=== PATIENT | female | born 1990 | race Caucasian/White ===

== ENCOUNTER → 2021-11-16 11:17 | Outpatient (BNVA) | payer OTHER, SELFPAY | PROVIDERS: Visit Provider Physician Assistant Medical | DX: Z13.89 Encounter for screening for other disorder (principal) | CPT/HCPCS: 73030; 99203 ==

== ENCOUNTER → 2021-12-10 09:40 | Outpatient (BNVA) | payer OTHER, SELFPAY | PROVIDERS: Visit Provider Physician Assistant Medical | DX: Z13.89 Encounter for screening for other disorder (principal) | CPT/HCPCS: 99213 ==

== ENCOUNTER 2022-02-02 14:54 | Outpatient (REF) | payer MEDICAID, SELFPAY ==
--- NOTE | ~2022-02-02 | XR_ITS ---
EXAMINATION: XR FEMUR, RIGHT CLINICAL INFORMATION: Pain and trauma to right thigh COMPARISON: None TECHNIQUE: AP and lateral views of the right femur were obtained. FINDINGS: The bones and soft tissues are normal. No fracture. No osseous lesions. XR/XR femur RT 2V IMPRESSION: Normal right femur.
== END 2022-02-02 14:55 | disposition home or self-care (01) ==
LOC: HO.XRAY 14:54
PROVIDERS: PCP Physician Assistant Medical; Visit Provider Emergency Medicine
DX: S79.921A Unspecified injury of right thigh, initial encounter (principal); X58.XXXA Exposure to other specified factors, initial encounter; Y93.9 Activity, unspecified; Y92.9 Unspecified place or not applicable; Y99.9 Unspecified external cause status
CPT/HCPCS: 73552

== ENCOUNTER 2024-08-14 07:27 | Outpatient (REF) | payer OTHER, SELFPAY ==
--- NOTE | ~2024-08-14 | XR_ITS ---
EXAMINATION: XR ELBOW, LEFT CLINICAL INFORMATION: S59.902A - Unspecified injury of left elbow, initial encounter COMPARISON: None available. TECHNIQUE: AP, lateral, and oblique views of the left elbow. FINDINGS: The bones and soft tissues are normal. No fracture or joint effusion. Alignment is anatomic. Joint spaces are maintained. XR/XR elbow LT min 3V IMPRESSION: Normal left elbow. Electronically signed by: Ambrosio Timmons MD 08/15/2024 10:36 AM СЕРГЕЙ
[2024-08-14 07:39] LABS: MANUAL DIFF FLAG NO
[2024-08-14 08:25] LABS: Basophils Absolute Auto 0.1 X10*3/uL (0.0-0.2); Basophils Percent Auto 0.9 % (0-2); Eosinophils Absolute Auto 0.2 X10*3/uL (0.0-0.4); Eosinophils Percent Auto 4.1 % (0-4); Hematocrit 41.3 % (37.0-47.0); Hemoglobin 14.2 g/dl (12.0-16.0); Imm Gran Abs Auto 0.01 X10*3/uL (0.00-0.03); Imm Gran Pct Auto 0.2 % (0.0-0.4); Lymphocytes Percent Auto 35.9 % (20-40); Mean Corpuscular HGB Conc 34.4 g/dl (31.0-35.0); Mean Corpuscular Hemoglobin 28.9 pg (27.0-33.0); Mean Corpuscular Volume 83.9 fL (80.0-98.0); Mean Platelet Volume 9.9 fL (9.4-12.3); Monocytes Absolute Auto 0.6 X10*3/uL (0.1-1.2); Monocytes Percent Auto 11.2 % (2-11); Neutrophils Absolute Auto 2.7 x10*3/uL (2.0-8.3); Neutrophils Percent Auto 47.7 % (45-73); Platelet Count 286 X10*3/uL (160-400); Red Blood Count 4.92 X10*6/uL (4.20-5.50); Red Cell Distribution Width 12.8 % (11.0-16.0); White Blood Count 5.6 X10*3/uL (4.8-10.8)
[2024-08-14 08:34] LABS: Estimated Average Glucose 100 mg/dL; Hemoglobin A1C 118.5757 umol/L; Hemoglobin A1c % 5.1 % (<6.0); Total Hemoglobin (HGBA1C) 3730.5122 umol/L
[2024-08-14 09:02] LABS: Alanine Aminotransferase 16 U/L (0-31); Albumin Level 4.2 g/dL (3.5-5.0); Alkaline Phosphatase 52 U/L (39-117); Anion Gap 10 (12-20); Aspartate Amino Transferase 24 U/L (5-31); Bilirubin Direct 0.2 mg/dL (0.0-0.5); Bilirubin Total 0.8 mg/dL (0.0-1.0); Blood Urea Nitrogen 10 mg/dL (9-16); C Reactive Protein 0.22 mg/dL (< or = 0.50); Calcium 8.8 mg/dL (8.4-10.2); Carbon Dioxide 23 mmol/L (22-29); Chloride 110 mmol/L (96-108); Cholesterol 175 mg/dL (<200); Estimated Glomerular Filt Rate > 60; Glucose Fasting 91 mg/dL (60-99); HDL Cholesterol 51 mg/dL (>40); LDL Cholesterol Calculated 108 mg/dL (<100); Magnesium 2.1 mg/dL (1.6-2.6); Potassium 3.8 mmol/L (3.3-5.1); Sodium 139 mmol/L (135-145); Total Protein 7.2 g/dL (6.5-8.0); Triglycerides 81 mg/dL (<150)
[2024-08-14 09:20] LABS: TSH reflex Free T4 3.46 uIU/mL (0.32-4.0); Vitamin D 25-OH Total 23.2 ng/mL (>30)
[2024-08-14 10:09] LABS: Folate 7.5 ng/mL (> or = 4.0); Vitamin B12 274 pg/mL (200-900)
[2024-08-14 14:56] LABS: Phosphorus 4.3 mg/dL (2.7-4.5)
[2024-08-14 15:03] LABS: Parathyroid Hormone Intact 74.6 pg/mL (8.7-77.1)
[2024-08-15 11:33] LABS: Prolactin 17.9 ng/mL
[2024-08-18 21:34] LABS: Estrogen 286 pg/mL
[2024-08-19 00:57] LABS: Progesterone 7.2 ng/mL
[2024-08-20 15:18] LABS: Vitamin B1 11 nmol/L (8-30)
[2024-08-22 06:27] LABS: Testosterone, Total 36 ng/dL (2-45)
== END 2024-08-14 07:28 | disposition home or self-care (01) ==
LOC: HO.XRAY 07:27
PROVIDERS: PCP Physician Assistant Medical; Visit Provider Physician Assistant Medical
DX: Z00.00 Encounter for general adult medical examination without abnormal findings (principal); D47.2 Monoclonal gammopathy; G62.9 Polyneuropathy, unspecified; D80.4 Selective deficiency of immunoglobulin M [IgM]; E06.3 Autoimmune thyroiditis; E78.5 Hyperlipidemia, unspecified; E55.9 Vitamin D deficiency, unspecified; G90.A Postural orthostatic tachycardia syndrome [POTS]; F43.10 Post-traumatic stress disorder, unspecified; E66.3 Overweight; Z68.26 Body mass index [BMI] 26.0-26.9, adult; S59.902A Unspecified injury of left elbow, initial encounter; W22.8XXA Striking against or struck by other objects, initial encounter; Y93.31 Activity, mountain climbing, rock climbing and wall climbing; Y92.9 Unspecified place or not applicable; Y99.8 Other external cause status
CPT/HCPCS: 36415; 73080; 80053; 80061; 80076; 82248; 82306; 82550; 82607; 82672; 82746; 83036; 83735; 83970; 84100; 84144; 84146; 84403; 84425; 84443; 85025; 86140

== ENCOUNTER 2024-08-14 12:57 | Outpatient (AMB) | payer OTHER, SELFPAY ==
--- NOTE | 2024-08-14 13:02 | MHC.PC.OV ---
Vital Signs 08/14/24 13:15 Height 5 ft 5 in Weight 157 lb BMI 26.1 BP 116/50 L Blood Pressure Location Rt brachial Pulse 73 Pulse Source Pulse Oximeter Temp 98.6 F Pulse Oximetry (%) 97 Intake Visit Reasons: new patient Intake Note: hurt left elbow two weeks ago Allergies scallops Allergy (Unknown, Unverified 08/14/24 13:43) Unknown Gabapentin Allergy (Unknown, Uncoded 08/14/24 13:43) neurologic side effects Medication List - Last Reconciled 08/14/24 by Elicia Valentin PA-C cholecalciferol (vitamin D3) 1,250 mcg PO QWEEK 3 months dextroamphetamine-amphetamine 15 mg (Adderall) 15 mg PO BID 90 days hydroxychloroquine 200 mg PO BID 90 days propranolol 10 mg PO BID 90 days trazodone 100 mg PO DAILY FORMERLY [facility], [facility] Medical History (Updated 08/14/24 @ 13:44 by Elicia Valentin PA-C) Overweight with body mass index (BMI) of 26 to 26.9 in adult Injury of left elbow Annual physical exam Hyperlipidemia with target low density lipoprotein (LDL) cholesterol less than 100 mg/dL Vitamin D deficiency Small fiber neuropathy Fracture of distal end of left fibula Multiple joint pain Postural orthostatic tachycardia syndrome PTSD (post-traumatic stress disorder) Selective immunoglobulin M deficiency Monoclonal gammopathy Channing's thyroiditis Surgical History S/P hardware removal S/P right rotator cuff repair S/P posterior Bankart repair of right shoulder Family History Paternal Grandfather Malignant carcinoid tumor of lung Mother Thyroid nodule Malignant tumor of thyroid gland Physical exam (Primary Care) Vital Signs: Last Vital Signs Temp 98.6 F 08/14/24 13:15 Pulse 73 08/14/24 13:15 BP 116/50 L 08/14/24 13:15 Pulse Ox 97 08/14/24 13:15 BMI result Body Mass Index 26.1 BMI Assessment/Plan discussion: High BMI High, discussed plan: lifestyle, weight reduction, dietary, physical activity and alcohol moderation Coding Level of Care Code New Pt Prev Care 18-39yr([id number] Diagnoses Annual physical exam Z00.00 Monoclonal gammopathy D47.2 Small fiber neuropathy G62.9 Selective immunoglobulin M deficiency D80.4 Channing's thyroiditis E06.3 Vitamin D deficiency E55.9 Hyperlipidemia with target low density lipoprotein (LDL) cholesterol less than 100 mg/dL E78.5 Postural orthostatic tachycardia syndrome G90.A PTSD (post-traumatic stress disorder) F43.10 Overweight with body mass index (BMI) of 26 to 26.9 in adult E66.3; Z68.26 Injury of left elbow S59.902A Assessment & Plan Assessment & Plan (1) Annual physical exam: Code(s): Z00.00 - Encounter for general adult medical examination without abnormal findings Category: Medical (2) Monoclonal gammopathy: Code(s): D47.2 - Monoclonal gammopathy Category: Medical Plan: [facility]. Has not been seen in approximately 1 year. Currently on hydrochloroquine 200 mg p.o. b.i.d.. Will refer to our commercial plumber, rheumatology, oncologist/lobby attendant per patient request for continuity of care. Condition is chronic and stable continue to monitor. (3) Small fiber neuropathy: Code(s): G62.9 - Polyneuropathy, unspecified Category: Medical Plan: [facility]. Has not been seen in approximately 1 year. Currently on hydrochloroquine 200 mg p.o. b.i.d.. Will refer to our commercial plumber, rheumatology, oncologist/lobby attendant per patient request for continuity of care. Condition is chronic and stable continue to monitor. (4) Selective immunoglobulin M deficiency: Code(s): D80.4 - Selective deficiency of immunoglobulin M [IgM] Category: Medical Plan: [facility]. Has not been seen in approximately 1 year. Currently on hydrochloroquine 200 mg p.o. b.i.d.. Will refer to our commercial plumber, rheumatology, oncologist/lobby attendant per patient request for continuity of care. Condition is chronic and stable continue to monitor. (5) Channing's thyroiditis: Code(s): E06.3 - Autoimmune thyroiditis Category: Medical Plan: Patient recently had TSH level drawn today which was within normal limits. Condition is chronic and stable continue to monitor (6) Vitamin D deficiency: Code(s): E55.9 - Vitamin D deficiency, unspecified Category: Medical Plan: Patient noted to have vitamin-D deficiency with a level of 23.2 drawn today. Patient will be started on a weekly supplement. Condition is chronic and stable continue to monitor. (7) Hyperlipidemia with target low density lipoprotein (LDL) cholesterol less than 100 mg/dL: Code(s): E78.5 - Hyperlipidemia, unspecified Category: Medical Plan: Patient's LDL was 108. Although patient is less than 40 years old and there are no other cardiac risk factors. Patient will trial diet and exercise before being started on a statin. Condition is chronic and stable continue to monitor. (8) Postural orthostatic tachycardia syndrome: Code(s): G90.A - Postural orthostatic tachycardia syndrome [POTS] Category: Medical Plan: Patient currently on propranolol 10 mg b.i.d.. Condition is chronic and stable continue to monitor. (9) PTSD (post-traumatic stress disorder): Code(s): F43.10 - Post-traumatic stress disorder, unspecified Category: Medical Plan: Patient currently on Adderall 15 mg p.o. b.i.d.. Condition is chronic and stable continue to monitor. (10) Overweight with body mass index (BMI) of 26 to 26.9 in adult: Code(s): E66.3 - Overweight; Z68.26 - Body mass index [BMI] 26.0-26.9, adult Category: Medical Plan: Patient will improve her diet and exercise regimen. Condition is chronic and stable continue to monitor. (11) Injury of left elbow: Code(s): S59.902A - Unspecified injury of left elbow, initial encounter Category: Medical Plan: Patient with left elbow pain. On exam has full range of motion no obvious deformities. No obvious ligamentous or tendon injury. Good strength noted. Will order outpatient x-ray. Will continue to monitor. Plan Plan I will evaluate the patient's elbow pain starting with an x-ray, advancing to MRI if indicated after initial imaging review. Will be ordering thyroid ultrasound to evaluate for thyroid nodules. Autoimmune monitoring remains stable, though further endocrine assessment including a thyroid ultrasound and expanded blood panel checks is warranted due to familial thyroid disease history and recent unexplained weight gain. Vitamin D supplementation initiated to address laboratory-confirmed deficiency, and lipid profile monitoring remains essential due to moderately elevated LDL. Medication refills coordinated as needed, considering holistic management integrating family and personal health history, alongside re-examining for potential thyroid activity via specific antibody evaluation and ultrasound diagnosis. Patient will also be referred to endocrinology for thyroid assessment, rheumatology in hematology/oncology for her chronic medical conditions. Orders: Orders Comprehensive [place]. Panel Fast Today Z00.00 - Encounter for general adult medical examination without abnormal findings Magnesium Today Z00.00 - Encounter for general adult medical examination without abnormal findings Liver Panel Today Z00.00 - Encounter for general adult medical examination without abnormal findings Phosphorus Today Z00.00 - Encounter for general adult medical examination without abnormal findings Testosterone, Total Today Z.00 - Encounter for general adult medical examination without abnormal findings Estrogen Today Z00.00 - Encounter for general adult medical examination without abnormal findings US thyroid Today E04.1 - Nontoxic single thyroid nodule, E06.3 - Autoimmune thyroiditis C Reactive Protein Today Z.00 - Encounter for general adult medical examination without abnormal findings Complete Blood Count Auto Diff Today Z00.00 - Encounter for general adult medical examination without abnormal findings Lipid Panel Today Z00.00 - Encounter for general adult medical examination without abnormal findings Hemoglobin A1c Today Z00.00 - Encounter for general adult medical examination without abnormal findings TSH reflex Free T4 Today Z00.00 - Encounter for general adult medical examination without abnormal findings Vitamin B1 Today Z00.00 - Encounter for general adult medical examination without abnormal findings Vitamin B12 and Folate Today Z00.00 - Encounter for general adult medical examination without abnormal findings Vitamin D 25-OH Total Today Z00.00 - Encounter for general adult medical examination without abnormal findings Prolactin Today Z00.00 - Encounter for general adult medical examination without abnormal findings Progesterone Today Z00.00 - Encounter for general adult medical examination without abnormal findings Creatine Kinase Total Today Z00.00 - Encounter for general adult medical examination without abnormal findings XR elbow LT min 3V Today S59.902A - Unspecified injury of left elbow, initial encounter Referrals Hematology & Oncology Referral D47.2 - Monoclonal gammopathy, D80.4 - Selective deficiency of immunoglobulin M [IgM], G62.9 - Polyneuropathy, unspecified Rheumatology Referral D47.2 - Monoclonal gammopathy, D80.4 - Selective deficiency of immunoglobulin M [IgM], E06.3 - Autoimmune thyroiditis, G62.9 - Polyneuropathy, unspecified Endocrinology Referral D47.2 - Monoclonal gammopathy, D80.4 - Selective deficiency of immunoglobulin M [IgM], E06.3 - Autoimmune thyroiditis, E55.9 - Vitamin D deficiency, unspecified, G62.9 - Polyneuropathy, unspecified Medications: New dextroamphetamine-amphetamine 15 mg ER 15 mg PO BID 180 caps 0RF hydroxychloroquine 200 mg PO BID 90 days 180 tabs 1RF propranolol 10 mg PO BID 90 days 180 tabs 1RF cholecalciferol (vitamin D3) 1,250 mcg PO QWEEK 3 months 13 caps 0RF vit d deficiency Patient Instructions: Patient Instructions - Attend x-ray imaging as scheduled, proceeding with further diagnostic as needed. - thyroid ultrasound ordered to evaluate for thyroid nodules - Commence weekly Vitamin D supplementation as per prescription. - Regular medication intake as directed; report any adverse responses or complications. - Schedule a follow-up visit in six months or sooner based on imaging and lab results. - Monitor any new or worsening symptoms, reaching out as necessary. - Review exercise and nutrition focusing on maintaining LDL within target ranges. - Prepare for endocrinology referral for further thyroid evaluation. - prepare for rheumatology referral - prepare for hematology/oncology referral Scribe Plan - Not visible on output: History of Present Illness The patient is a 34-year-old female presenting for her annual physical exam. In addition she would like to discuss left elbow pain. The pain began after a traumatic impact on a previously injured elbow, with a suspect previous fracture history confirmed through past MRI examinations. Associated with her primary orthopedic complaint, the patient has a background of autoimmune presentations including thyroid antibody positivity with otherwise normal function test results, monitored in the past due to recognized familial thyroid pathologies. Evaluation of weight management challenges ties into tracking efforts for thyroid involvement, given familial predispositions. Patient has a diagnosis of monoclonal gammopathy, small fiber neuropathy and selective immunoglobulin M deficiency where she is being followed by [facility]. She routinely has blood work yearly. Her labs over the past few years have been stable within normal limits. She is inquiring if she can follow-up with a lobby attendant/oncologist, commercial plumber and mobile lounge driver at [facility] for continuity of care and due to she works at [facility] therefore it makes it easier to make her appointments instead of going to [facility]. Patient also complaining of left elbow pain. Reports a few weeks ago she impacted her elbow and since then she is having intermittent pain. She reports a history of a prior fracture many years ago. She reports a prior fracture to her left elbow had to be confirmed with MRI after she had a negative left elbow x-ray. Although this was from falling after rock climbing. 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 - Exercise: Engaged in physically demanding activities like rock climbing, although current extent of physical activity is not specified. - Family History: Positive for thyroid issues, including thyroid cancer in the mother and medication use for thyroid conditions among paternal relatives. - Weight Management: Observations of weight gain despite consistent physical activity levels, requiring ongoing evaluation. Review of Systems - Musculoskeletal: Reports Left elbow pain with radiating nerve pain during movement. - Endocrine: Reports unexplained weight gain; Denies cold intolerance. - Neurological: Denies headaches or visual disturbances. - Hematological: Denies easy bruisability. Physical Exam Appearance: Alert. Oriented X3. No acute distress. Head: Normal external exam. Normocephalic. Atraumatic. Eyes: Pupils are equal, round, and reactive to light. Extraocular movements intact. Conjunctiva and sclera normal. Eyelids normal. Ears: External auditory canal normal. Tympanic membranes normal. Throat: Pharynx normal. Uvula midline. Moist mucous membranes. Neck: Normal inspection. Neck supple. Full range of motion. No adenopathy. Thyroid Normal. No meningeal signs. No neck mass noted. Cardiovascular: Normal heart rate and rhythm. Heart sound normal. No murmurs noted. Pulses normal throughout. Respiratory: No respiratory distress. Painless inspiration. Breath sounds normal. No wheezes/rales/rhonchi noted. Chest nontender. No accessory muscle usage noted or decreased air movement noted. Abdomen: Soft and nontender. Bowel sounds normal in all 4 quadrants. No distention noted. No organomegaly noted. No visible injury noted. Back: No costovertebral angle tenderness. Full range of motion noted. Skin: Skin warm and dry. Normal skin color. Normal skin turgor. No rashes/lesions/lacerations noted. Extremities: No lower extremity edema. Extremities exhibit normal range of motion. Extremities nontender. Noted elbow pain with radiating nerve pain down the arm, history of nondisplaced capitellum fracture in 2018. Neuro: Oriented X 3. No motor deficit. No sensory deficit. Reflexes normal. Results - Labs: Elevated thyroid antibodies, TSH within normal limits. - Lipid Profile: Elevated LDL at 108 mg/dL. - Pending: Vitamin D, Vitamin B1 results. - will add labs and patient will need to be redrawn she understands this. Plan I will evaluate the patient's elbow pain starting with an x-ray, advancing to CT scan or MRI if indicated after initial imaging review. Will be ordering thyroid ultrasound to evaluate for thyroid nodules. Autoimmune monitoring remains stable, though further endocrine assessment including a thyroid ultrasound and expanded blood panel checks is warranted due to familial thyroid disease history and recent unexplained weight gain. Vitamin D supplementation initiated to address laboratory-confirmed deficiency, and lipid profile monitoring remains essential due to moderately elevated LDL. Medication refills coordinated as needed, considering holistic management integrating family and personal health history, alongside re-examining for potential thyroid activity via specific antibody evaluation and ultrasound diagnosis. Patient will also be referred to endocrinology for thyroid assessment, rheumatology and hematology/oncology for her chronic medical conditions. Patient was informed and verbally consented to the use of an ambient scribe for clinic note documentation during this visit. Discussion Notes We discussed the potential of elbow trauma recurrence and outlined the imaging pathway with x-ray followed by MRI to rule out stress re-injury. I reviewed the implications of stable but elevated thyroid antibodies within the context of the patient's weight gain and family history of thyroid pathology. The thyroid ultrasound represents a logical step to uncover potential nodule growth. I explained benefits and expectations around vitamin D supplementation and the impact of controlled LDL through lifestyle choices rather than immediate statins at her current age and health status. Additionally, I advised subsequent consultation with endocrinology for thorough thyroid assessment. We outlined follow-up procedures to elucidate the patient's medication needs timely, with understanding toward future adjustments in response to hormone assays. Patient Instructions - Attend x-ray imaging as scheduled, proceeding with further diagnostic as needed. - thyroid ultrasound ordered to evaluate for thyroid nodules - Commence weekly Vitamin D supplementation as per prescription. - Regular medication intake as directed; report any adverse responses or complications. - Schedule a follow-up visit in six months or sooner based on imaging and lab results. - Monitor any new or worsening symptoms, reaching out as necessary. - Review exercise and nutrition focusing on maintaining LDL within target ranges. - Prepare for endocrinology referral for further thyroid evaluation. - prepare for rheumatology referral - prepare for hematology/oncology referral
[2024-08-14 13:15] VITALS: BP 116/50; PULSE 73; TEMP 37; O2SAT 97; BMI 26.1
== END 2024-08-14 13:35 | disposition home or self-care (01) ==
LOC: HO.HMCSH 12:57
PROVIDERS: PCP Internal Medicine; Visit Provider Physician Assistant Medical
DX: Z00.00 Encounter for general adult medical examination without abnormal findings (principal); D47.2 Monoclonal gammopathy; G62.9 Polyneuropathy, unspecified; D80.4 Selective deficiency of immunoglobulin M [IgM]; E06.3 Autoimmune thyroiditis; E55.9 Vitamin D deficiency, unspecified; E78.5 Hyperlipidemia, unspecified; G90.A Postural orthostatic tachycardia syndrome [POTS]; F43.10 Post-traumatic stress disorder, unspecified; E66.3 Overweight; Z68.26 Body mass index [BMI] 26.0-26.9, adult; S59.902A Unspecified injury of left elbow, initial encounter

== ENCOUNTER → 2024-08-14 14:15 | Outpatient (BNV) | payer OTHER, SELFPAY | PROVIDERS: PCP Physician Assistant Medical; Visit Provider Radiology Diagnostic Radiology | DX: M25.522 Pain in left elbow (principal) | CPT/HCPCS: 73080 ==

== ENCOUNTER → 2024-08-17 19:45 | Outpatient (BNV) | payer OTHER, SELFPAY | PROVIDERS: PCP Internal Medicine; Visit Provider Radiology Diagnostic Radiology | DX: S46.312A Strain of muscle, fascia and tendon of triceps, left arm, initial encounter (principal) | CPT/HCPCS: 73221 ==

== ENCOUNTER 2024-08-17 19:50 | Outpatient (REF) | payer OTHER, SELFPAY | END 2024-08-17 19:51 | disposition home or self-care (01) | LOC: HO.MRI 19:50 | PROVIDERS: PCP Internal Medicine; Visit Provider Physician Assistant Medical | DX: S59.902A Unspecified injury of left elbow, initial encounter (principal) | CPT/HCPCS: 73221 ==

== ENCOUNTER 2024-08-27 10:40 | Outpatient (AMB) | payer OTHER, SELFPAY ==
--- NOTE | 2024-08-27 10:47 | MHC.OFFVIS ---
Vital Signs 08/27/24 10:52 Height 5 ft 5 in Weight 157 lb BMI 26.1 Intake Visit Reasons: Lowgrade tearing of the distal triceps tendon, LT Intake Note: Ivan is a 34 year old right hand dominant female who presents today as a new patient for evaluation of possible tearing of the distal triceps tendon. Patient reports about 4 weeks ago she walked into a wall causing her to directly hit her elbow on the wall. She continues to a have ongoing radiating nerve pain. MRI was performed. Left Elbow MRI done on 08/21/2024 IMPRESSION: 1. Low-grade tearing of the distal triceps tendon. Allergies scallops Allergy (Unknown, Unverified 08/27/24 10:50) Unknown Gabapentin Allergy (Unknown, Uncoded 08/27/24 10:50) neurologic side effects HPI HPI Lowgrade tearing of the distal triceps tendon, LT: Details: 34 yo female presents to the office today for pain along the left elbow. Approx 4 weeks ago she hit her arm against a wall and shes had pain since. She has taken Ibu and tylenol with minimal relief. She was given prednisone with some relief, but once she completed the dose the pain returned. [facility] Medical History (Updated 08/27/24 @ 10:48 by Elicia Valentin PA-C) Triceps tendon rupture Overweight with body mass index (BMI) of 26 to 26.9 in adult Injury of left elbow Annual physical exam Hyperlipidemia with target low density lipoprotein (LDL) cholesterol less than 100 mg/dL Vitamin D deficiency Small fiber neuropathy Fracture of distal end of left fibula Multiple joint pain Postural orthostatic tachycardia syndrome PTSD (post-traumatic stress disorder) Selective immunoglobulin M deficiency Monoclonal gammopathy Channing's thyroiditis Surgical History S/P hardware removal S/P right rotator cuff repair S/P posterior Bankart repair of right shoulder Family History Paternal Grandfather Malignant carcinoid tumor of lung Mother Thyroid nodule Malignant tumor of thyroid gland Social History (Updated 08/27/24 @ 10:55 by AARON Castañeda) Patient Tobacco Use Status: Never used Tobacco Current occupational status: employed Current occupation: [employer] [place], right hand dominant Review of Systems Const All systems reviewed & are unremarkable except as noted in HPI and below Physical Exam Vital Signs: BMI result Body Mass Index 26.1 Const General: cooperative and no acute distress Orientation/consciousness: patient oriented x3 Resp Effort & Inspection: normal respiratory effort and able to speak in complete sentences Cardio Peripheral pulses: Peripheral pulses 2+ throughout Neuro General: patient oriented x3 Extrem Other: Left elbow normal to inspection, no superficial tenderness to palpation. She is able to activate the triceps without significant discomfort. Mild weakness on exam. Neurovascularly intact. Results Reviewed Results Reviewed: MRi Left elbow 08/17/24 IMPRESSION: 1. Low-grade tearing of the distal triceps tendon. Assessment & Plan Assessment & Plan (1) Triceps tendon rupture: Code(s): S46.319A - Strain of muscle, fascia and tendon of triceps, unspecified arm, initial encounter Category: Medical Plan: At this time the triceps appears to be intact and functioning. I do recommend a course of occupational therapy to work on strength exercises. I encouraged her to avoid activities that cause pain to avoid further injuring. She will increase activities as tolerated and see me back as needed. Orders: Orders OT Evaluation and Treatment Today S46.319A - Strain of muscle, fascia and tendon of triceps, unspecified arm, initial encounter Coding Level of Care Code New Pt Level 3 (88772) Complex EM visit Add On G2211 Diagnoses Triceps tendon rupture S46.319A
[2024-08-27 10:52] VITALS: BMI 26.1
== END 2024-08-27 11:06 | disposition home or self-care (01) ==
LOC: HO.HOS 10:40
PROVIDERS: PCP Internal Medicine; Visit Provider Physician Assistant
DX: S46.312A Strain of muscle, fascia and tendon of triceps, left arm, initial encounter (principal)
CPT/HCPCS: 99203

== ENCOUNTER → 2024-08-28 14:05 | Outpatient (BNV) | payer OTHER, SELFPAY | PROVIDERS: PCP Physician Assistant Medical; Referring Provider Physician Assistant Medical; Visit Provider Internal Medicine | DX: D47.2 Monoclonal gammopathy (principal) | CPT/HCPCS: 99203 ==

== ENCOUNTER 2024-10-09 15:49 | Outpatient (REF) | payer OTHER, SELFPAY ==
--- NOTE | ~2024-10-09 | US_ITS ---
EXAMINATION: US THYROID HISTORY: E04.1 - Nontoxic single thyroid nodule TECHNIQUE: Real-time grayscale ultrasound imaging was performed and images were reviewed. COMPARISON: There are no prior studies for comparison. FINDINGS: SIZE: The right thyroid lobe measures 3.9 x 1.3 x 1.7 cm. The left thyroid lobe measures 3.6 x 1.4 x 1.5 cm. The isthmus measures 2 mm. FLOW: Flow to the gland is normal. ECHOGENICITY: The echotexture of the gland is mildly heterogeneous. NODULES: No discrete nodules are identified. US/US thyroid IMPRESSION: Unremarkable thyroid ultrasound. No nodules are identified. ACR TI-RADS Guidelines TR1 (0 points): Benign, No follow-up or biopsy required TR2 (2 points): Not Suspicious, No biopsy or follow up indicated TR3 (3 points): Mildly Suspicious, FNA if >= 2.5 cm, Follow if >= 1.5 cm TR4 (4-6 points): Moderately Suspicious, FNA if >= 1.5 cm, Follow if >= 1.0 cm TR5 (>=7 points): Highly Suspicious, FNA if >= 1.0 cm, Follow if >= 0.5 cm Electronically signed by: Arvind Hearn MD 10/10/2024 04:43 PM EDT
== END 2024-10-09 15:50 | disposition home or self-care (01) ==
LOC: HO.US 15:49
PROVIDERS: PCP Physician Assistant Medical; Visit Provider Physician Assistant Medical
DX: E04.1 Nontoxic single thyroid nodule (principal); E06.3 Autoimmune thyroiditis
CPT/HCPCS: 76536

== ENCOUNTER → 2024-10-09 15:52 | Outpatient (BNV) | payer OTHER, SELFPAY | PROVIDERS: PCP Physician Assistant Medical; Visit Provider Radiology Diagnostic Radiology | DX: E04.1 Nontoxic single thyroid nodule (principal) | CPT/HCPCS: 76536 ==

== ENCOUNTER 2024-10-10 15:31 | Outpatient (AMB) | payer OTHER, SELFPAY ==
[2024-10-10 15:32] VITALS: BP 108/70; PULSE 67; O2SAT 96; BMI 25.2
--- NOTE | 2024-10-10 15:32 | MHC.OFFVIS ---
Vital Signs 10/10/24 15:32 Height 5 ft 5 in Weight 151 lb 7 oz BMI 25.2 BP 108/70 Blood Pressure Location Lt brachial Position Sitting Pulse 67 Pulse Source Pulse Oximeter Pulse Oximetry (%) 96 Oxygen Delivery Method Room Air Intake Visit Reasons: Autoimmune thyroiditis Intake Note: New patient present today for Autoimmune thyroiditis office visit. 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 Operator Required: No Accompanied by: Self / Same As Patient Allergies scallops Allergy (Unknown, Unverified 10/10/24 15:35) Unknown Gabapentin Allergy (Unknown, Uncoded 10/10/24 15:35) neurologic side effects Medication List - Last Reconciled 10/10/24 by Bess Reynolds MD cholecalciferol (vitamin D3) 1,250 mcg PO QWEEK 3 months dextroamphetamine-amphetamine 15 mg ER 15 mg PO BID hydroxychloroquine 200 mg PO BID 90 days propranolol 10 mg PO BID 90 days trazodone 100 mg PO DAILY HPI Comments Details: 34-year-old female here today for initial evaluation of autoimmune thyroid disease 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tested positive for TPO antibodies Lab results reviewed from August 2024 which showed normal TSH of 3.85 She also had a thyroid ultrasound 10/09/2024, report not finalized yet but I reviewed the images myself which shows normal homogeneous appearance of the thyroid gland with no discrete nodules. Complains of weigt gain. No constipations. Reports some intermittent cold intolerance, some hair loss. No mood changes, some increased fatigue. Patient denies any difficulty swallowing, pain on swallowing or voice changes or difficulty breathing. Patient denies any history of childhood neck radiation. Denies having ever used lithium, amiodarone or biotin supplements. Patient denies any family history of thyroid cancer or thyroid disease. Maternal aunt : has thyroid nodules Mother: thyroid cancer, s/p thyroidectomy doing well, not sure of type Paternal aunts: hypothyroid Physical exam General: sitting comfortably in no acute distress HEENT: normocephalic/atraumatic, Neck: supple, symmetrical, no thyromegaly , no dorsocervical or supraclavicular fat pads Cardiac: normal heart sounds Pulm: normal breath sounds B/L, no added breath sounds Abd: not distended Extremities: no edema Neuro: AAO x3, Speech: normal, no facial droop, moving all 4 extremities Laboratory Tests 08/14/24 07:37 TSH 3.46 [facility] Medical History (Updated 08/28/24 @ 16:17 by Guillermina Perry MD) Triceps tendon rupture Overweight with body mass index (BMI) of 26 to 26.9 in adult Injury of left elbow Annual physical exam Hyperlipidemia with target low density lipoprotein (LDL) cholesterol less than 100 mg/dL Vitamin D deficiency Small fiber neuropathy Fracture of distal end of left fibula Multiple joint pain Postural orthostatic tachycardia syndrome PTSD (post-traumatic stress disorder) Selective immunoglobulin M deficiency Monoclonal gammopathy Channing's thyroiditis Surgical History S/P hardware removal S/P right rotator cuff repair S/P posterior Bankart repair of right shoulder Family History Paternal Grandfather Malignant carcinoid tumor of lung Mother Thyroid nodule Malignant tumor of thyroid gland Social History Household Members: None Patient Tobacco Use Status: Former Tobacco user Tobacco use type: Cigarette service: No Current occupational status: employed Current occupation: [employer] [place] right hand dominant Assessment & Plan Assessment & Plan (1) Channing's thyroiditis: Code(s): E06.3 - Autoimmune thyroiditis Category: Medical Plan: 34-year-old female who was found to have positive TPO antibodies in 2020. Normal thyroid function from August 2024. She also had an ultrasound on 10/09/2024: I reviewed the images myself which shows normal appearance of the thyroid with no discrete nodules. She does have strong family history of autoimmune thyroid disease as well as has family history of thyroid cancer. However there is no screening recommended. It is also reassuring to look at her thyroid gland. I discussed with the patient that TPO antibodies can be positive in up to 10-20% of the general population and there is no way to tell done in if she would develop thyroid dysfunction. Her primary care provider can continue to monitor her thyroid function annually or sooner if she has any symptoms. We reviewed signs and symptoms of hypo and hyperthyroidism. She does not need to follow up with us, primary care provider can check thyroid function annually with TSH and free T4. Plan See above Coding Level of Care Code New Pt Level 3 (25640) Diagnoses Channing's thyroiditis E06.3
== END 2024-10-10 15:47 | disposition home or self-care (01) ==
LOC: HO.ENCR 15:31
PROVIDERS: PCP Physician Assistant Medical; Visit Provider Student in an Organized Health Care Education/Training Program
DX: E06.3 Autoimmune thyroiditis (principal)
CPT/HCPCS: 99203

== ENCOUNTER → 2024-10-10 15:31 | Outpatient (BNVA) | payer OTHER, SELFPAY | PROVIDERS: PCP Physician Assistant Medical; Visit Provider Student in an Organized Health Care Education/Training Program ==

== ENCOUNTER 2024-10-18 13:57 | Outpatient (RCR) | payer OTHER, SELFPAY ==
--- NOTE | 2024-08-31 09:47 | MHC.OT.EP ---
[address] [phone] Occupational Therapy Plan of Care Patient Name: Ivan Rojas Date of Evaluation: 08/31/24 Diagnosis: Left Triceps Tear Pain Location: Low pain at rest in distal tricep, radiating over dorsal forearm Pain Score: 1 Pain Scale Used: Numeric (0 - 10) Aggravating Factors: Full end range movements, static holds, weightbearing Alleviating Factors: Ibuprofen occasionally Assessment: 34 yo female walked into a wall and caught corner of the wall on her elbow, she saw her PCP and was referred to [facility]. MRI shows partial distal tricep tear, no surgical intervention, referred to OT for progression of range and strength. She is now about 6 weeks s/p injury and low pain at rest, still avoiding lifting/weightbearing and strenuous tasks - including most athletic leisure activities. 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 I anticipate she will do well with progression of strengthening w/ goal of full functional and strength return w/ mindfulness of healing. Frequency and Duration: The patient will be seen 1x/wk for 6 weeks Short Term Goals: Ind w/ HEP Ind w/ heat/cold modalities as needed Ind w/ manual techniques for soft tissue mobilization [employer] Goals: Left gross grasp >75lb Pt to demo ease w/ modified pushups Pt to return to light strength training program Treatment Plan: Therapeutic Exercise Therapeutic Activity Home Exercise Program Patient Education Edema Control Ultrasound Iontophoresis MHP Cold Packs Joint Mobilization Soft Tissue Mobilization Kinesiotaping Electronically Signed By: Charlene Pardo OTR/L CHT Please Sign and return to therapist. Thank you once again for your referral.
--- NOTE | 2024-10-18 15:35 | MHC.OT.DC ---
[address] [phone] F: [phone] Occupational Therapy Discharge Note Patient Name: Ivan Rojas Provider: Elizabeth Tan PA-C Diagnosis: Left Triceps Tear Date of Evaluation: 08/31/24 Date of Discharge: 10/18/24 Treatments to Date: 8 Discharge Status: Achieved Goals Improved Function Independent with HEP Discharge Summary: About 12 weeks s/p partial tricep tear, doing well and progressing w/ exercises and now strengthening tricep w/ slight muscle fatigue but no pain w/ active movements and activity. All goals met and Ind w/ self management. Electronically Signed By: Charlene Pardo OTR/Crissy CHT Reviewed/agree with student documentation: Therapist: Please Sign and return to therapist, thank you for your referral.
== END 2024-10-18 15:36 | disposition home or self-care (01) ==
LOC: HO.OT 13:57
PROVIDERS: PCP Internal Medicine; Visit Provider Physician Assistant
DX: S46.312D Strain of muscle, fascia and tendon of triceps, left arm, subsequent encounter (principal)
CPT/HCPCS: 97033; 97110; 97140; 97165

== ENCOUNTER 2025-03-05 13:24 | Emergency (ER) | payer OTHER, SELFPAY ==
--- NOTE | ~2025-03-05 | XR_ITS ---
EXAMINATION: XR FOOT, LEFT CLINICAL INFORMATION: FALL l ANKLE/FOOT PAIN COMPARISON: None available. TECHNIQUE: AP, lateral, and oblique views of the left foot. FINDINGS: There is hallux valgus joint with mild degenerative changes in the MTP joint with small marginal osteophytes and minimal joint space narrowing. No abnormalities noted in the foot. There is no joint diastases, fracture, or other deformity. Again noted is fusion of the distal tibia and fibula joint, described on ankle x-ray. XR/XR foot LT min 3V IMPRESSION: Hallux valgus deformity with mild first MTP joint osteoarthritis. Surgical fusion of the distal tibiofibular joint. Electronically signed by: Vinod Daugherty MD 03/05/2025 02:17 PM EDT
--- NOTE | ~2025-03-05 | XR_ITS ---
EXAMINATION: XR ANKLE, LEFT CLINICAL INFORMATION: fall L ankle pain s/p tib/fib fuison COMPARISON: None available. TECHNIQUE: AP, lateral, and mortise views of the left ankle. FINDINGS: There is arthrodesis across the distal tibia fibula joint. There is a retained broken screw in the distal tibial metaphysis. There are lucent tracks from removed hardware in the distal fibula diaphysis. The talar dome appears intact. Ankle mortise is congruent. No acute fracture is evident. There is lateral soft tissue swelling. XR/XR ankle LT min 3V IMPRESSION: There is mature bone bridging the distal tibia and fibula joint. There is lateral soft tissue swelling. No other abnormality is identified. Electronically signed by: Vinod Daugherty MD 03/05/2025 02:15 PM EDT
[2025-03-05 13:30] VITALS: BP 119/75; PULSE 75; RESP 16; TEMP 36.8; O2SAT 99; BMI 25.0
--- NOTE | 2025-03-05 13:43 | ED.LOWEXIN ---
HPI - Extremity Injury (Lower) General Chief Complaint: Extremity Injury, Lower Stated Complaint: Ankle injury Time Seen by Provider: 03/05/25 13:40 Source: patient and RN notes reviewed Mode of arrival: ambulatory Limitations: no limitations History of Present Illness ED Provider: Bharati Ascencio PA-C HPI Narrative: This is a 34-year-old female, with a past medical history of multiple reconstructive left ankle surgical repair s/p fx years ago, who presents emergency department with concerns of left ankle pain status post fall off horse which occurred this afternoon. Patient reports that the horse turned suddenly and she fell off the horse twisting and landing onto her left ankle in the process. She states that she has been able to partially bear weight on her left ankle. She denies head strike or LOC. She is not on anticoagulation. No other complaints or concerns at this time. MD complaint: ankle injury Place: street/outdoors Relieving factors: nothing Exacerbating factors: nothing Context: fall and direct blow Associated symptoms: swelling Other symptoms: none Related Data Previous Rx's ?Medication ?Instructions ?Recorded cholecalciferol (vitamin D3) 1,250 1,250 mcg PO QWEEK vit d 08/14/24 mcg (50,000 unit) capsule deficiency 3 months #13 caps hydroxychloroquine 200 mg tablet 200 mg PO BID 90 days #180 tabs 11/26/24 propranolol 10 mg tablet 10 mg PO BID #180 tabs 11/26/24 trazodone 100 mg tablet 100 mg PO DAILY #90 tabs 12/17/24 dextroamphetamine-amphetamine ER 15 mg PO BID 90 days #180 caps 12/19/24 15 mg 24hr capsule,extend release acetaminophen 500 mg tablet 1,000 mg (2 x 500 mg) PO Q8H PRN 03/05/25 (Tylenol Extra Strength) pain #30 tabs ketorolac 10 mg tablet 10 mg PO Q8H PRN pain 3 days #9 03/05/25 tabs Allergies Allergy/AdvReac Type Severity Reaction Status Date / Time scallops Allergy Unknown Unknown Unverified 03/05/25 13:31 Gabapentin Allergy Unknown neurologic Uncoded 03/05/25 13:31 side effects Review of Systems Review of Systems: Constitutional : No Fever, No Chills ENT/Mouth : No sore throat, No Rhinorrhea Eyes: No Eye Pain, No Swelling, No Redness Cardiovascular : No Chest Pain, No SOB Respiratory : No Cough, No Sputum Gastrointestinal : No Nausea, No Vomiting, No Diarrhea, No abdominal Pain Genitourinary : No Dysuria, No Hematuria Musculoskeletal : +joint pain, No Myalgias, + Joint Swelling Skin : No Skin Lesions Neuro : No Weakness, No Numbness, No Headache All other systems reviewed and are negative Yes all other systems are reviewed and are negative Constitutional: Constitutional: Reports as per [facility] Past Medical History Medical History (Updated 03/06/25 @ 00:01 by Ivan Anders) Triceps tendon rupture Overweight with body mass index (BMI) of 26 to 26.9 in adult Injury of left elbow Annual physical exam Hyperlipidemia with target low density lipoprotein (LDL) cholesterol less than 100 mg/dL Vitamin D deficiency Small fiber neuropathy Fracture of distal end of left fibula Multiple joint pain Postural orthostatic tachycardia syndrome PTSD (post-traumatic stress disorder) Selective immunoglobulin M deficiency Monoclonal gammopathy Channing's thyroiditis Surgical History S/P hardware removal S/P right rotator cuff repair S/P posterior Bankart repair of right shoulder Family History Family History Paternal Grandfather Malignant carcinoid tumor of lung Mother Thyroid nodule Malignant tumor of thyroid gland Social History Social History Household Members: None Patient Tobacco Use Status: Former Tobacco user Tobacco use type: Cigarette service: No Current occupational status: employed Current occupation: [employer], right hand dominant Physical Exam Exam: Exam: General: Awake, alert, and oriented X3. No acute distress. HEENT: Normal inspection CVS: Normal heart rate and rhythm. Pulses normal. Respiratory: No respiratory distress Skin: Warm, dry, no rashes noted to exposed skin. Normal skin color. Normal skin turgor. Extremities: Left ankle with moderate edema noted overlying the lateral malleolus, with tenderness palpation along the lateral malleolus. No obvious bony deformity. She does have chronic well-healed surgical incisions noted on a lateral and medial malleolus. Strong DP pulse. Able to plantar and dorsiflex. Achilles tendon is intact. Neuro: Oriented X 3. No motor deficit. No sensory deficit. Vital Signs: Vital Signs: Last Vital Signs Temp 98.2 F 03/05/25 13:30 Pulse 75 03/05/25 13:30 Resp 16 03/05/25 13:30 BP 119/75 03/05/25 13:30 Pulse Ox 99 03/05/25 13:30 O2 Del Method Room Air 03/05/25 13:30 BMI result Body Mass Index 25.0 Medications Administered Discontinued Medications Generic Name Dose Route Start Last Admin Trade Name Freq PRN Reason Stop Dose Admin Acetaminophen 975 mg 03/05/25 13:50 03/05/25 14:19 Acetaminophen 325 Mg Tablet PO 03/05/25 13:51 975 mg ONCE ONE Administration Ketorolac Tromethamine 30 mg 03/05/25 14:37 03/05/25 14:53 Ketorolac Tromethamine 30 Mg/Ml Vial IM 03/05/25 14:38 30 mg ONCE ONE Administration Medical Decision Making Medical Decision Making [facility] Narrative: This is a 34-year-old female who presents emergency department for evaluation of left ankle pain status post falling off a horse today. On, vital signs within normal limits. She is speaking full sentences under no acute distress. No head strike or LOC. She is not on anticoagulation. X-ray was obtained to rule out any bony abnormalities, no acute findings noted. Discussed findings with patient. Discharged with postoperative walking boot, and crutches Differential Diagnosis Differential Diagnoses: The differential diagnosis associated with the presentation includes fx, sprain, strain, dislocation Radiology Impression Discussion of test interpretation with radiology: I have reviewed the radiologist's reading. Radiologist Impression: EXAMINATION: XR ANKLE, LEFT CLINICAL INFORMATION: fall L ankle pain s/p tib/fib fuison COMPARISON: None available. TECHNIQUE: AP, lateral, and mortise views of the left ankle. FINDINGS: There is arthrodesis across the distal tibia fibula joint. There is a retained broken screw in the distal tibial metaphysis. There are lucent tracks from removed hardware in the distal fibula diaphysis. The talar dome appears intact. Ankle mortise is congruent. No acute fracture is evident. There is lateral soft tissue swelling. XR/XR ankle LT min 3V IMPRESSION: There is mature bone bridging the distal tibia and fibula joint. There is lateral soft tissue swelling. No other abnormality is identified. Electronically signed by: Vinod Daugherty MD 03/05/2025 02:15 PM EDT RP Dictated By: Vinod Daugherty MD [address] [address] XRay Report Signed Patient: Ivan Rojas MR#: [id number] : 1990 Acct:[id number] Age/Sex: 34 / F ADM Date: 03/05/25 Loc: HO.ED Attending Dr: Ordering Physician: Sabrina Sherwood Date of Service: 03/05/25 Procedure(s): XR foot LT min 3V Accession Number(s): [id number] cc: Elicia Valentin PA-C; Sabrina Sherwood~ Reason for Exam: FALL l ANKLE/FOOT PAIN EXAMINATION: XR FOOT, LEFT CLINICAL INFORMATION: FALL l ANKLE/FOOT PAIN COMPARISON: None available. TECHNIQUE: AP, lateral, and oblique views of the left foot. FINDINGS: There is hallux valgus joint with mild degenerative changes in the MTP joint with small marginal osteophytes and minimal joint space narrowing. No abnormalities noted in the foot. There is no joint diastases, fracture, or other deformity. Again noted is fusion of the distal tibia and fibula joint, described on ankle x-ray. XR/XR foot LT min 3V IMPRESSION: Hallux valgus deformity with mild first MTP joint osteoarthritis. Surgical fusion of the distal tibiofibular joint. Electronically signed by: Vinod Daugherty MD 03/05/2025 02:17 PM EDT RP Dictated By: Vinod Daugherty MD Discharge Plan Discharge Clinical Impression: Ankle sprain Patient Disposition: Home, Self-Care Instructions: Ankle Sprain (ED), Sprain (ED), P.R.I.C.E. Treatment (ED), Walking Boot (ED) Additional Instructions: You were seen in the emergency department after you injured your left ankle. Your x-rays do not show any acute fractures. It is unclear whether not you injured in any of your ligaments in your ankle therefore please rest, ice, elevate, use walking boot and or crutches. Take Tylenol as needed for pain, Tylenol 1000 mg every 8 hours. You may also take Toradol as needed for pain. You may follow-up with the orthopedic team, call to make an appointment. If any new or worsening symptoms occur, please return for re-evaluation. I hope you feel better soon! Prescriptions: New ketorolac 10 mg tablet 10 mg PO Q8H PRN (Reason: pain) 3 Days Qty: 9 0RF acetaminophen [Tylenol Extra Strength] 500 mg tablet 1,000 mg PO Q8H PRN (Reason: pain) Qty: 30 0RF No Action hydroxychloroquine 200 mg tablet 200 mg PO BID 90 Days Qty: 180 1RF propranolol 10 mg tablet 10 mg PO BID Qty: 180 1RF trazodone 100 mg tablet 100 mg PO DAILY Qty: 90 3RF dextroamphetamine-amphetamine 15 mg capsule,extended release 24hr 15 mg PO BID 90 Days Qty: 180 0RF cholecalciferol (vitamin D3) 1,250 mcg (50,000 unit) capsule 1,250 mcg PO QWEEK 90 Days Qty: 13 0RF Referrals: [facility] [Provider Group] Stand Alone Forms: Work/School Release Discharge Date/Time: 03/05/25 15:28 Print Language: Chinese
--- OUTSIDE RECORDS SUMMARY | 2025-03-05 17:10 | XMS_ITS | Encounter Summary ---
Author Organization [facility] Address [address] [place] [address] Phone Care Team Providers Care Mixer Operator Vacuum Pan Salt Name Role Phone Edmund Cope MD Unavailable [phone] Shannon Garcia NP Primary Care Provid er Regulo Lundberg MD Unavailable [phone] Carey Boyd Primary Care Provider [phone] Natasha Cerrato RN Unavailable Shanda Wilkinson MD Unavailable Regulo Lundberg MD Unavailable [phone] Shanda Wilkinson MD Unavailable [phone] Shanda Wilkinson MD Unavailable [phone] Reason for Referral * Outpatient Procedure - Closed Specialty Diagnoses / Procedures Referred By Meche yuan Referred To Contact Radiology Diagnoses Nausea Vomiting without nausea, intractability of vomiting not specified, unspecified vomiting type Abnormal weight loss Procedures NM Gastric Emptying Moise Gomez MD Phone: tel: fax: mailto: Referral ID Status Reason Start Date Expiration Date Visits Re quested Visits Authorized [id number] Closed 03/11/2020 03/11/2021 1 1 Encounter Details Date Type Department Care Team (Latest Contact Info) Description 03/11/2020 Transcribe Orders Virtual Department [address] [place] [address] Moise Gomez MD [address] [phone] [email or web address] Nausea (Primary Dx); Vomiting without nausea, intractability of vomiting not specified, unspecified vomiting type; Abnormal weight loss Social History Tobacco Use Types Packs/Day Years Used Date Smoking Tobacco: Former Cigarettes 0.3 3 2 - 2011 Smokeless Tobacco: Never Alcohol Use Standard Drinks/Week Comments Yes 2 (1 standard drink = 0.6 oz pur e alcohol) once a week Comments No Sex and Gender Information Value Date Recorded Sex Assigned at Female 12/30/2017 8:12 PM EDT Legal Sex Female 6:50 AM EST Gender Identity Female 12/30/2017 8:12 PM EDT Sexual Orientation Lesbian or Mary 01/21/2023 5: 33 PM EDT documented as of this encounter Plan of Treatment Not on file documented as of this encounter Results * NM GASTRIC EMPTYING SOLID PHASE (03/21/2020 1:33 PM EDT) Anatomical Region Laterality Modality Abdomen, Pelvis Nuclear Medicine 03/21/2020 1:56 PM EDT Impressions 03/21/2020 1:57 PM EDT Normal gastric emptying. POS - [id number] Narrative 03/21/2020 1:57 PM EDT Following oral administration of 0.862 mCi of Tc99m labeled sulfur colloid in a standardized meal, imaging of the upper abdomen was performed at one hour, two hours and four hours. At one hour 84% of activity is still present in the stomach (normal 37-90%) At two hours 45% of activity is still present in the stomach (normal 30-60%) At four hours is 2.5% of activity is still present in the stomach (normal 0-10%) Procedure Note Yasmany Lay MD - 03/21/2020 Following oral administration of 0.862 mCi of Tc99m labeled sulfur colloidin a standardized meal, imaging of the upper abdomen was performed at onehour, two hours and four hours. At one hour 84% of activity is still present in the stomach ([id number]%) At two hours 45% of activity is still present in the stomach (czujus28-62%) At four hours is 2.5% of activity is still present in the stomach (normal0-10%) IMPRESSION: Normal gastric emptying. POS - [id number] Moise Gomez MD [facility] Final Result documented in this encounter Visit Diagnoses Diagnosis Nausea- Primary Nausea alone Vomiting without nausea, intractability of vomiting not specified, unspecified vomiting type Abnormal weight loss Loss of weight Nausea Nausea alone Vomiting without nausea, intractability of vomiting not specified, unspecified vomiting type Abnormal weight loss Loss of weight documented in this encounter Care Teams Mixer Operator Vacuum Pan Salt Relationship Specialty Start Date End Date Shannon Garcia NP [address] [place] [id number] [email or web address] PCP - General Family Medicine 02/15/20 08/12/20 Carey Boyd PA [address] [place] [address] PCP - General Director News 08/13/20 Edmund Cope MD [address] [place] [address] [email or web address] Insurance Assigned Provider 09/19/19 04/19/20 Regulo Lundberg MD [address] [place] [id number] [email or web address] Insurance Assigned Provider 04/19/20 09/20/20 Natasha Cerrato, RN [address] [place] [id number] [email or web address] Cleaning Team Member 08/14/20 08/31/20 Shanda Wilkinson MD [address] [place] [phone] [email or web address] Insurance Assigned Provider 09/20/20 11/16/20 Regulo Lundberg MD [address] [place] [id number] [email or web address] Insurance Assigned Provider 11/16/20 04/18/22 Shanda Wilkinson MD [address] [place] [id number] Insurance Assigned Provider 04/18/22 01/18/23 Shanda Wilkinson MD [address] [place] [phone] Insurance Assigned Provider 04/18/22 02/19/23 documented as of this encounter Additional Source Comments The information contained in this document represents components of the legal health record. It is not the complete legal health record.[facility]
--- OUTSIDE RECORDS SUMMARY | 2025-03-05 17:10 | XMS_ITS | Encounter Summary ---
Author Organization [facility] Address [address] [place] [address] Phone Care Team Providers Care Fern Picker Name Role Phone Carey Boyd Primary Care Provider + [phone] Regulo Lundberg MD Unavailable [phone] Shanda Wilkinson MD Unavailable [phone] Shanda Wilkinson MD Unavailable [phone] Encounter Details Date Type Department Care Team (Late st Contact Info) Description 12/08/[address] [facility], [place] [address] [place] [address] Social History Tobacco Use Types Packs/Day Years Used Date Smoking Tobacco: Former Cigarettes 0.3 3 2 009 - 2011 Smokeless Tobacco: Never Alcohol Use Standard Drinks/Week Comments Yes 0 (1 standard drink = 0.6 oz pur e alcohol) 2 monthly Comments No Sex and Gender Information Value Date Recorded Sex Assigned at Female 12/30/2017 8:12 PM EDT Legal Sex Female 6:50 AM EST Gender Identity Female 12/30/2017 8:12 PM EDT Sexual Orientation Lesbian or Mary 01/21/2023 5: 33 PM EDT documented as of this encounter Plan of Treatment Not on file documented as of this encounter Visit Diagnoses Not on filedocumented in this encounter Care Teams Fern Picker Relationship Specialty Start Date End Date Carey Boyd PA [address] [place] [address] PCP - General Security And Privacy Consultant 08/13/20 Regulo Lundberg MD [address] [place] [address] [email or web address] Insurance Assigned Provider 11/16/20 04/18/22 Shanda Wilkinson MD [address] [place] [address] Insurance Assigned Provider 04/18/22 01/18/23 Shanda Wilkinson MD [address] [place] [address] Insurance Assigned Provider 04/18/22 02/19/23 documented as of this encounter Additional Source Comments The information contained in this document represents components of the legal health record. It is not the complete legal health record.[facility]
--- OUTSIDE RECORDS SUMMARY | 2025-03-05 17:10 | XMS_ITS | Encounter Summary ---
Author Organization [facility] Address [address] [place] [address] Phone Care Team Providers Care Medical Transcription Radiology Name Role Phone Edmund Cope MD Primary Care Provider + Edmund Cope MD Unavailable + 0 Edmund Cope MD Unavailable + [phone] Edmund Cope MD Primary Care Provider + Shannon Garcia NP Primary Care Provid er + Regulo Lundberg MD Unavailable + Carey Boyd Primary Care Provider + Natasha Cerrato RN Unavailable Shanda Wilkinson MD Unavailable + Regulo Lundberg MD Unavailable + Shanda Wilkinson MD Unavailable + Shanda Wilkinson MD Unavailable +[phone] Encounter Details Date Type Department Care Team (Late st Contact Info) Description 07/07/2017 Procedure Pass OR Admitting Dept - Virtual Department [address] [place], [place] [id number] Social History Tobacco Use Types Packs/Day Years Used Date Smoking Tobacco: Former Cigarettes 0.3 5 2 007 - 2012 Smokeless Tobacco: Never Alcohol Use Standard Drinks/Week Comments Yes 0 (1 standard drink = 0.6 oz pur e alcohol) once a week Comments Unknown Sex and Gender Information Value Date Recorded [...] on filedocumented in this encounter Care Teams Medical Transcription Radiology Relationship Specialty Start Date End Date Edmund Cope MD [email or web address] PCP - General Internal Medicine 05/16/17 01/07/20 Edmund Cope MD [email or web address] PCP - General Internal Medicine 01/08/20 02/14/20 Shannon Garcia NP [address] [place] [address] [email or web address] PCP - General Family Medicine 02/15/20 08/12/20 Carey Boyd PA [address] [place] [address] PCP - General Manufacturing Engineering Manager 08/13/20 Edmund Cope MD [address] [place] [address] [email or web address] Insurance Assigned Provider 10/14/18 03/24/19 Edmund Cope MD [address] [place] [address] [email or web address] Insurance Assigned Provider 09/19/19 04/19/20 Regulo Lundberg MD [address] [place] [address] [email or web address] Insurance Assigned Provider 04/19/20 09/20/20 Natasha Cerrato RN [address] [place] [address] [email or web address] Inbound Ingredient Logistics Specialist 08/14/20 08/31/20 Shanda Wilkinson MD [address] [place] [address] [email or web address] Insurance Assigned Provider 09/20/20 11/16/20 Regulo Lundberg MD [address] [place] [address] [email or web address] Insurance Assigned Provider 11/16/20 04/18/22 Shanda Wilkinson MD [address] [place] [address] [email or web address] Insurance Assigned Provider 04/18/22 01/18/23 Shanda Wilkinson MD [address] [place] [address] [email or web address] Insurance Assigned Provider 04/18/22 02/19/23 documented as of this encounter Additional Source Comments The information contained in this document represents components of the legal health record. It is not the complete legal health record.[facility]
--- OUTSIDE RECORDS SUMMARY | 2025-03-05 17:10 | XMS_ITS | Encounter Summary ---
Author Organization [facility] Address [address] [facility] [address] [place] [address] Phone Care Team Providers Care Helper Animal Laboratory Name Role Phone Regulo Lundberg MD Unavailable [phone] Carey Boyd Primary Care Provider [phone] Shanda Wilkinson MD Unavailable [phone] Regulo Lundberg MD Unavailable Shanda Wilkinson MD Unavailable Shanda Wilkinson MD Unavailable [phone] Encounter Details Date Type Department Care Team (Late st Contact Info) Description 09/08/2020 Ancillary Orders [facility] Department of Orthopaedic Surgery, Foot & Ankle Service [address] [facility], 3rd Floor, [address] [place] [address] Ruiz Sauer PA-C [address] [place] [address] [email or web address] Pain Social History Tobacco Use Types Packs/Day Years Used Date Smoking Tobacco: Former Cigarettes 0.3 3 2 009 - 2012 Smokeless Tobacco: Never Alcohol Use [...] documented as of this encounter Results * XR FOOT 3 OR MORE VIEWS (LEFT) (09/08/2020 11:28 AM EDT) Anatomical Region Laterality Modality Foot Left Radiographic Latricia ging 09/08/2020 1:40 PM EDT Impressions 09/08/2020 3:57 PM EDT New postoperative changes from fixation of the medial midfoot. ATTESTATION: I, Dr. Timothy Leong as teaching physician, have reviewed the images for this case and if necessary edited the report originally created by Dr. Wesley Jimenes. Narrative 09/08/2020 3:57 PM EDT TECHNIQUE: XR FOOT 3 OR MORE VIEWS (LEFT) COMPARISON: XR FOOT 3 OR MORE VIEWS (LEFT) FINDINGS: There are new postoperative changes from screw fixation of the medial cuneiform-second metatarsal and medial-middle cuneiform articulations. Hardware is intact. Again noted are small fracture fragments along the dorsal midfoot. No new fracture. Partially imaged ankle fixation hardware with distal fibular plate and screw construct and syndesmotic screws. Procedure Note Timothy Leong MD - 09/08/2020 TECHNIQUE: XR FOOT 3 OR MORE VIEWS (LEFT) COMPARISON: XR FOOT 3 OR MORE VIEWS (LEFT) FINDINGS: There are new postoperative changes from screw fixation of the medialcuneiform- second metatarsal and medial-middle cuneiform articulations.Hardware is intact. Again noted are small fracture fragments along thedorsal midfoot. No new fracture. Partially imaged ankle fixation hardware with distal fibular plate andscrew construct and syndesmotic screws. IMPRESSION: New postoperative changes from fixation of the medial midfoot. ATTESTATION: I, Dr. Timothy Leong as teaching physician, have reviewedthe images for this case and if necessary edited the report originallycreated by Dr. Wesley Jimenes. us Ruiz Sauer PA-C IMG XR LOWER EXTREMITY Fin al Result documented in this encounter Visit Diagnoses Diagnosis Pain Generalized pain Pain Generalized pain documented in this encounter Care Teams Helper Animal Laboratory Relationship Specialty Start Date End Date Carey Boyd PA [address] [place] [address] PCP - General Metal Cleaner 08/13/20 Regulo Lundberg MD [address] [place] [address] Insurance Assigned Provider 04/19/20 09/20/20 Shanda Wilkinson MD [address] [place] [address] 28[address] Insurance Assigned Provider 09/20/20 11/16/20 Regulo Lundberg MD [address] [place] [address] 9[address]26 Insurance Assigned Provider 11/16/20 04/18/22 Shanda Wilkinson MD [address] [place] [address] 78264 Insurance Assigned Provider 04/18/22 01/18/23 Shanda Wilkinson MD [address] [place] [address] 50225 Insurance Assigned Provider 04/18/22 02/19/23 documented as of this encounter Additional Source Comments The information contained in this document represents components of the legal health record. It is not the complete legal health record.[facility]
--- OUTSIDE RECORDS SUMMARY | 2025-03-05 17:10 | XMS_ITS | Encounter Summary ---
Author Organization [facility] Address [address] [employer] [address] [facility] [address] [place] [address] Phone Care Team Providers Care Color Separation Photographer Name Role Phone Edmund Cope MD Unavailable [phone] Edmund Cope MD Primary Care Provider [phone] Shannon Garcia NP Primary Care Provid er Regulo Lundberg MD Unavailable [phone] Carey Boyd Primary Care Provider [phone] Natasha Cerrato RN Unavailable Shanad Wilkinson MD Unavailable [phone] Regulo Lundberg MD Unavailable [phone] Shanda Wilkinson MD Unavailable [phone] Shanda Wilkinson MD Unavailable [phone] Encounter Details Date Type Department Care Team (Late st Contact Info) Description 01/15/2020 Ancillary Orders [facility],Outside Imaging [address] [place], [place] [phone] System, Provider Not In, PhD Partners [address] [address] Social History Tobacco Use Types Packs/Day Years [...] as of this encounter Results * XR Upper Extremity Outside (No Interpretation) (01/19/2017 12:00 AM EDT) Narrative SYSTEMGENERATED, DOCUMENTATION - 01/15/2020 4:49 PM EDT This study is for PACS storage only and not for interpretation. us Provider Not In System PhD IMG OUTSIDE IMAGING W /OUT INTERPRETATION Final Result documented in this encounter Visit Diagnoses Not on filedocumented in this encounter Care Teams Color Separation Photographer Relationship Specialty Start Date End Date Edmund Cope MD [address] [place] [address] [email or web address] PCP - General Internal Medicine 01/08/20 02/14/20 Shannon Garcia NP [address] [place] [address] [email or web address] PCP - General Family Medicine 02/15/20 08/12/20 Carey Boyd PA [address] [place] [address] PCP - General Spa Manager 08/13/20 Edmund Cope MD [address] [place] [address] [email or web address] Insurance Assigned Provider 09/19/19 04/19/20 Regulo Lundberg MD [address] [place] [address] Insurance Assigned Provider 04/19/20 09/20/20 Natsaha Cerrato, RN [address] [place] [address] [facility] Surface Boss 08/14/20 08/31/20 Shanda Wilkinson MD [address] [place] [address] Insurance Assigned Provider 09/20/20 11/16/20 Regulo Lundberg MD [address] [place] [address]861 Insurance Assigned Provider 11/16/20 04/18/22 Shanda Wilkinson MD [address] [place] [address] 28289 Insurance Assigned Provider 04/18/22 01/18/23 Shanda Wilkinson MD [address] [place] [address] Insurance Assigned Provider 04/18/22 02/19/23 documented as of this encounter Additional Source Comments The information contained in this document represents components of the legal health record. It is not the complete legal health record.[facility]
--- OUTSIDE RECORDS SUMMARY | 2025-03-05 17:10 | XMS_ITS | Encounter Summary ---
Author Organization [facility] Address [address] [facility] [address] [place] [address] Phone Care Team Providers Care Pediatric Hospitalist Name Role Phone Carey Boyd Primary Care Provider + [phone] Regulo Lundberg MD Unavailable [phone] Shanda Wilkinson MD Unavailable [phone] Shanda Wilkinson MD Unavailable [phone] Encounter Details Date Type Department Care Team (Late st Contact Info) Description 01/19/2022 Procedure Pass [facility], X-Ray - [facility] [address] [place] [address] Social History Tobacco Use Types Packs/Day Years [...] on filedocumented in this encounter Care Teams Pediatric Hospitalist Relationship Specialty Start Date End Date Carey Boyd PA [address] [place] [address] PCP - General Disc Pad Grinder 08/13/20 Regulo Lundberg MD [address] [place] [address] [email or web address] Insurance Assigned Provider 11/16/20 04/18/22 Shanda Wilkinson MD [address] [place] [address] Insurance Assigned Provider 04/18/22 01/18/23 Shanda Wilkinson MD [address] [place] [address] Insurance Assigned Provider 04/18/22 02/19/23 documented as of this encounter Additional Source Comments The information contained in this document represents components of the legal health record. It is not the complete legal health record.[facility]
--- OUTSIDE RECORDS SUMMARY | 2025-03-05 17:10 | XMS_ITS | Encounter Summary ---
Author Organization [facility] Address [address] [facility] [address] [place] [address] Phone Care Team Providers Care Bioinformatics Developer Name Role Phone Carey Boyd Primary Care Provider + [phone] Regulo Lundberg MD Unavailable [phone] Shanda Wilkinson MD Unavailable [phone] Shanda Wilkinson MD Unavailable [phone] Encounter Details Date Type Department Care Team (Late st Contact Info) Description 10/29/2021 Procedure Pass [facility], [address] [address] Social History Tobacco Use Types Packs/Day Years [...] on filedocumented in this encounter Care Teams Bioinformatics Developer Relationship Specialty Start Date End Date Carey Boyd PA [address] [place] [address] PCP - General Book Critic 08/13/20 Regulo Lundberg MD [address] [place] [address] [email or web address] Insurance Assigned Provider 11/16/20 04/18/22 Shanda Wilkinson MD [address] [place] [address] Insurance Assigned Provider 04/18/22 01/18/23 Shanda Wilkinson MD [address] [place] [address] Insurance Assigned Provider 04/18/22 02/19/23 documented as of this encounter Additional Source Comments The information contained in this document represents components of the legal health record. It is not the complete legal health record.[facility]
--- OUTSIDE RECORDS SUMMARY | 2025-03-05 17:10 | XMS_ITS | Encounter Summary ---
Author Organization [facility] Address [address] [facility] [address] [place] [address] Phone Care Team Providers Care Corporate Services Manager Name Role Phone Edmund Cope MD Primary [...] MD Unavailable + Shanda Wilkinson MD Unavailable [phone] Encounter Details Date Type Department Care Team (Latest Contact Info) Description 10/25/2019 Transcribe Orders [facility] [address] [place], [place] [phone] Dalton Leone, [address] [place] [address] [email or web address] Screening for unspecified condition (Primary Dx) Social History Tobacco Use Types Packs/Day Years Used Date Smoking Tobacco: Former Cigarettes 0.3 5 2 - 2011 Smokeless Tobacco: Never Alcohol [...] documented as of this encounter Visit Diagnoses Diagnosis Screening for unspecified condition- Primary documented in this encounter Care Teams Corporate Services Manager Relationship Specialty Start Date End Date Edmund Cope MD [email or web address] PCP - General Internal Medicine 05/16/17 01/07/20 Edmund Cope MD [email or web address] PCP - General Internal Medicine 01/08/20 02/14/20 Shannon Garcia NP [address] [place] [address] [email or web address] PCP - General Family Medicine 02/15/20 08/12/20 Carey Boyd PA [address] [place] [address] PCP - General Blasting Gang Miner 08/13/20 Edmund Cope MD [address] [place] [address] [email or web address] Insurance Assigned Provider 09/19/19 04/19/20 Regulo Lundberg MD [address] [place] [address] [email or web address] Insurance Assigned Provider 04/19/20 09/20/20 Natasha Cerrato, RN [address] [place] [address] [email or web address] [facility] Medical Collections 08/14/20 08/31/20 Shanda Wilkinson MD [address] [place] [address] Insurance Assigned Provider 09/20/20 11/16/20 Regulo Lundberg MD [address] [place] [address] [email or web address] Insurance Assigned Provider 11/16/20 04/18/22 Shanda Wilkinson MD [address] [place] [address] Insurance Assigned Provider 04/18/22 01/18/23 Shanda Wilkinson MD [address] [place] [address] Insurance Assigned Provider 04/18/22 02/19/23 documented as of this encounter Additional Source Comments The information contained in this document represents components of the legal health record. It is not the complete legal health record.[facility]
--- OUTSIDE RECORDS SUMMARY | 2025-03-05 17:10 | XMS_ITS | Encounter Summary ---
Author Organization [facility] Address [address] [employer] [facility] [address] [place] [address] Phone Care Team Providers Care Roller Inspector And Mender Name Role Phone Regulo Lundberg MD Unavailable Carey Boyd Primary Care Provider [phone] Natasha Cerrato RN Unavailable Shanda Wilkinson MD Unavailable Regulo Lundberg MD Unavailable Shanda Wilkinson MD Unavailable [phone] Shanda Wilkinson MD Unavailable [phone] Encounter Details Date Type Department Care Team (Late st Contact Info) Description 08/25/2020 Procedure Pass [facility] [address] [place] [address] Social History Tobacco Use Types Packs/Day Years [...] on filedocumented in this encounter Care Teams Roller Inspector And Mender Relationship Specialty Start Date End Date Carey Boyd PA [address] [place] [address] PCP - General Crime Scene Analyst 08/13/20 Regulo Lundberg MD [address] [place] [address] [email or web address] Insurance Assigned Provider 04/19/20 09/20/20 Natasha Cerrato RN [address] [place] [address] [email or web address] [facility] Assistant Professor Of Forestry 08/14/20 08/31/20 Shanda Wilkinson MD [address] [place] [address] [email or web address] Insurance Assigned Provider 09/20/20 11/16/20 Regulo Lundberg MD [address] [place] [address] [email or web address] Insurance Assigned Provider 11/16/20 04/18/22 Shanda Wilkinson MD [address] [place] [address] [email or web address] Insurance Assigned Provider 04/18/22 01/18/23 Shanda Wilkinson MD [address] [place] [address] [email or web address] Insurance Assigned Provider 04/18/22 02/19/23 documented as of this encounter Additional Source Comments The information contained in this document represents components of the legal health record. It is not the complete legal health record.[facility]
--- OUTSIDE RECORDS SUMMARY | 2025-03-05 17:10 | XMS_ITS | Encounter Summary ---
Author Organization [facility] Address [address] [employer] [facility] [address] [place] [address] Phone Care Team Providers Care Blogs Manager Name Role Phone Shannon Garcia NP Primary Care Provid er Regulo Lundberg MD Unavailable Carey Boyd Primary Care Provider [phone] Natasha Cerrato RN Unavailable Shanda Wilkinson MD Unavailable [phone] Regulo Lundberg MD Unavailable [phone] Shanda Wilkinson MD Unavailable [phone] Shanda Wilkinson MD Unavailable [phone] Encounter Details Date Type Department Care Team (Late st Contact Info) Description 05/28/2020 Procedure Pass [facility] [address] [place], [place] [phone] Social History Tobacco Use Types Packs/Day Years [...] on filedocumented in this encounter Care Teams Blogs Manager Relationship Specialty Start Date End Date Shannon Garcia NP [address] [place] [address] [email or web address] PCP - General Family Medicine 02/15/20 08/12/20 Carey Boyd PA [address] [place] [address] PCP - General Ms Sql Dba 08/13/20 Regulo Lundberg MD [address] [place] [address] Insurance Assigned Provider 04/19/20 09/20/20 Natasha Cerrato, FRITZ [address] [place] [address] [email or web address] 08/14/20 08/31/20 Shanda Wilkinson MD [address] [place] [address] Insurance Assigned Provider 09/20/20 11/16/20 Regulo Lundberg MD [address] [place] [address] Insurance Assigned Provider 11/16/20 04/18/22 Shanda Wilkinson MD [address] [place] [address] [email or web address] Insurance Assigned Provider 04/18/22 01/18/23 Shanda Wilkinson MD [address] [place] [address] [email or web address] Insurance Assigned Provider 04/18/22 02/19/23 documented as of this encounter Additional Source Comments The information contained in this document represents components of the legal health record. It is not the complete legal health record.[facility]
--- OUTSIDE RECORDS SUMMARY | 2025-03-05 17:10 | XMS_ITS | Encounter Summary ---
Author Organization [facility] Address [address] [facility] [address] [place] [address] Phone Care Team Providers Care Dramatic Arts Historian Name Role Phone Regulo Lundberg MD Unavailable Carey Boyd Primary Care Provider [phone] Shanda Wilkinson MD Unavailable [phone] Regulo Lundberg MD Unavailable [phone] Shanda Wilkinson MD Unavailable [phone] Shanda Wilkinson MD Unavailable [phone] Reason for Referral * Physical Therapy (Urgent) - Closed Specialty Diagnoses / Procedures Referred By Meche yuan Referred To Contact Physical Therapy Diagnoses Encounter for rehabilitation Left Ankle Procedures Evalaute & Treat Guillermo Pineda MD Phone: tel: fax: [email or web address] [employer] [address] [place] [address] Phone: tel: Referral ID Status Reason Start Date Expiration Date Visits Re quested Visits Authorized [id number] Closed 09/08/2020 12/04/2020 17 17 Encounter Details Date Type Department Care Team (Latest Contact Info) Description 09/08/2020 Transcribe Orders [facility] [address] [place] [address] Guillermo Pineda MD [address], [place] [address] [email or web address] Encounter for rehabilitation (Primary Dx) Social History Tobacco Use Types [...] as of this encounter Plan of Treatment Scheduled Referrals Name Type Priority Associated Diagnoses Orde r Schedule Ambulatory referral to [facility] Physical Therapy Outpatient Referral Routine Encounter for rehabilitation Ordered: 09/08/2020 documented as of this encounter Visit Diagnoses Diagnosis Encounter for rehabilitation- Primary documented in this encounter Care Teams Dramatic Arts Historian Relationship Specialty Start Date End Date Carey Boyd PA [address] [place] [address] PCP - General Top Edge Beveler 08/13/20 Regulo Lundberg MD [address] [place] [address] Insurance Assigned Provider 04/19/20 09/20/20 Shanda Wilkinson MD [address] [place] [address] [email or web address] Insurance Assigned Provider 09/20/20 11/16/20 Regulo Lundberg MD [address] [place] [address] [email or web address] Insurance Assigned Provider 11/16/20 04/18/22 Shanda Wilkinson MD [address] [place] [address] [email or web address] Insurance Assigned Provider 04/18/22 01/18/23 Shanda Wilkinson MD [address] [place] [address] [email or web address] Insurance Assigned Provider 04/18/22 02/19/23 documented as of this encounter Additional Source Comments The information contained in this document represents components of the legal health record. It is not the complete legal health record.[facility]
--- OUTSIDE RECORDS SUMMARY | 2025-03-05 17:10 | XMS_ITS | Encounter Summary ---
Author Organization [facility] Address [address] [facility] [address] [place] [address] Phone Care Team Providers Care Reclaimer Name Role Phone Edmund Cope MD Unavailable [phone] Shannon Garcia NP Primary Care Provid er Regulo Lundberg MD Unavailable Carey Boyd Primary Care Provider [phone] Natasha Cerrato RN Unavailable Shanda Wilkinson MD Unavailable [phone] Regulo Lundberg MD Unavailable Shanda Wilkinson MD Unavailable Shanda Wilkinson MD Unavailable [phone] Encounter Details Date Type Department Care Team (Late st Contact Info) Description 02/20/2020 Procedure Pass [facility], Ct Scan - [address] [id number] Social History Tobacco Use Types Packs/Day Years [...] on filedocumented in this encounter Care Teams Reclaimer Relationship Specialty Start Date End Date Shannon Garcia NP [address] [place] [address] [email or web address] PCP - General Family Medicine 02/15/20 08/12/20 Carey Boyd PA [address] [place] [address] PCP - General Coiled Tubing Operator 08/13/20 Edmund Cope MD [address] [place] [address] Insurance Assigned Provider 09/19/19 04/19/20 Regulo Lundberg MD [address] [place] [address] Insurance Assigned Provider 04/19/20 09/20/20 Natasha Cerrato RN [address] [place] [address] iC[employer] Casting Machine Set Up Operator 08/14/20 08/31/20 Shanda Wilkinson MD [address] [place] [address] [email or web address] Insurance Assigned Provider 09/20/20 11/16/20 Regulo Lundberg MD [address] [place] [address] [email or web address] Insurance Assigned Provider 11/16/20 04/18/22 Shanda Wilkinson MD [address] [place] [address] [email or web address] Insurance Assigned Provider 04/18/22 01/18/23 Shanda Wilkinson MD [address] [place] [address] [email or web address] Insurance Assigned Provider 04/18/22 02/19/23 documented as of this encounter Additional Source Comments The information contained in this document represents components of the legal health record. It is not the complete legal health record.[facility]
--- OUTSIDE RECORDS SUMMARY | 2025-03-05 17:10 | XMS_ITS | Encounter Summary ---
Author Organization [facility] Address [address] [facility] [address] [place] [address] Phone Care Team Providers Care Truck Dock Material Mover Name Role Phone Edmund Cope MD Primary [...] Unavailable + Shanda Wilkinson MD Unavailable + Reason for Referral * Physical Therapy (Routine) - Closed Specialty Diagnoses / Procedures Referred By Meche yuan Referred To Contact Physical Therapy Diagnoses Encounter for rehabilitation Left Ankle Procedures Evaluate & Treat Guillermo Pineda MD Phone: tel: fax: [email or web address] [facility] [address] [place] [address] Phone: tel: Referral ID Status Reason Start Date Expiration Date Visits Re quested Visits Authorized [id number] Closed 12/06/2019 06/12/2020 20 20 Encounter Details Date Type Department Care Team (Latest Contact Info) Description 12/06/2019 Transcribe Orders [facility] [address] [place] [address] Guillermo Pineda MD [email or web address], [place] [address] [email or web address] Encounter for rehabilitation (Primary Dx) [...] Diagnoses Orde r Schedule Ambulatory referral to [facility] Physical Therapy Outpatient Referral Routine Encounter for rehabilitation Ordered: 12/06/2019 documented as of this encounter Visit Diagnoses Diagnosis Encounter for rehabilitation- Primary documented in this encounter Care Teams Truck Dock Material Mover Relationship Specialty Start Date End Date Edmund Cope MD PCP - General Internal Medicine 05/16/17 01/07/20 Edmund Cope MD [email or web address] PCP - General Internal Medicine 01/08/20 02/14/20 Shannon Garcia, RICARDO [address] [place] [address] [email or web address] PCP - General Family Medicine 02/15/20 08/12/20 Carey Boyd PA [address] [place] [address] PCP - General Facilities Flight Check Pilot 08/13/20 Edmund Cope MD [address] [place] [address] [email or web address] Insurance Assigned Provider 09/19/19 04/19/20 Regulo Lundberg MD [address] [place] [address] Insurance Assigned Provider 04/19/20 09/20/20 Natasha Cerrato, FRITZ [address] [place] [address] [email or web address] iCMP Slip Cover Maker 08/14/20 08/31/20 Shanda Wilkinson MD [address] [place] [phone] Insurance Assigned Provider 09/20/20 11/16/20 Regulo Lundberg MD [address] [place] [address] [phone] [email or web address] Insurance Assigned Provider 11/16/20 04/18/22 Shanda Wilkinson MD [address] [place] [address] [email or web address] Insurance Assigned Provider 04/18/22 01/18/23 Shanda Wilkinson MD [address] [place] [address] [email or web address] Insurance Assigned Provider 04/18/22 02/19/23 documented as of this encounter Additional Source Comments The information contained in this document represents components of the legal health record. It is not the complete legal health record.[facility]
--- OUTSIDE RECORDS SUMMARY | 2025-03-05 17:10 | XMS_ITS | Encounter Summary ---
Author Organization [facility] Address [address] [facility] [address] [place] [address] Phone Care Team Providers Care Mixer Operator Vacuum Pan Salt Name Role Phone Shannon Garcia NP Primary Care Provid er Regulo Lundberg MD Unavailable Carey Boyd Primary Care Provider [phone] Natasha Cerrato RN Unavailable Shanda Wilkinson MD Unavailable Regulo Lundberg MD Unavailable Shanda Wilkinson MD Unavailable [phone] Shanda Wilkinson MD Unavailable [phone] Encounter Details Date Type Department Care Team (Late st Contact Info) Description 07/30/2020 Procedure Pass [facility] Cardiology [address] [facility], [address] [place] [address] Social History Tobacco Use Types [...] on filedocumented in this encounter Care Teams Mixer Operator Vacuum Pan Salt Relationship Specialty Start Date End Date Shannon Garcia NP [address] [place] [address] [email or web address] PCP - General Family Medicine 02/15/20 08/12/20 Carey Boyd PA [address] [place] [address] PCP - General Area Counselor 08/13/20 Regulo Lundberg MD [address] [place] [address] Insurance Assigned Provider 04/19/20 09/20/20 Natasha Cerrato, FRITZ [address] [place] [address] iCMP Switching Operator 08/14/20 08/31/20 Shanda Wilkinson MD [address] [place] [address] Insurance Assigned Provider 09/20/20 11/16/20 Regulo Lundberg MD [address] [place] [phone] Insurance Assigned Provider 11/16/20 04/18/22 Shanda Wilkinson MD [address] [place] [address] [email or web address] Insurance Assigned Provider 04/18/22 01/18/23 Shanda Wilkinson MD [address] [place] [address] [email or web address] Insurance Assigned Provider 04/18/22 02/19/23 documented as of this encounter Additional Source Comments The information contained in this document represents components of the legal health record. It is not the complete legal health record.[facility]
--- OUTSIDE RECORDS SUMMARY | 2025-03-05 17:10 | XMS_ITS | Encounter Summary ---
Author Organization [facility] Address [address] [employer] [facility] [address] [place] [address] Phone Care Team Providers Care Field Service Tech Name Role Phone Edmund Cope MD Primary Care Provider + Edmund Cope MD Unavailable [phone] Edmund Cope MD Primary Care Provider + Shannon Garcia NP Primary Care Provid er + Regulo Lundberg MD Unavailable + Carey Boyd Primary Care Provider + Natasha Cerrato RN Unavailable Shanda Wilkinson MD Unavailable + Regulo Lundberg MD Unavailable + Shanda Wilkinson MD Unavailable + Shanda Wilkinson MD Unavailable [phone] Encounter Details Date Type Department Care Team (Late st Contact Info) Description 11/14/2019 Procedure Pass [facility], Ct Scan - [facility] [address] [place], [place] [phone] Social History Tobacco Use Types Packs/Day Years [...] on filedocumented in this encounter Care Teams Field Service Tech Relationship Specialty Start Date End Date Edmund Cope MD [email or web address] PCP - General Internal Medicine 05/16/17 01/07/20 Edmund Cope MD [email or web address] PCP - General Internal Medicine 01/08/20 02/14/20 Shannon Garcia NP [address] [place] [address] [email or web address] PCP - General Family Medicine 02/15/20 08/12/20 Carey Boyd PA [address] [place] [address] PCP - General Configuration Management Manager 08/13/20 Edmund Cope MD [address] [place] [address] [email or web address] Insurance Assigned Provider 09/19/19 04/19/20 Regulo Lundberg MD [address] [place] [address] [email or web address] Insurance Assigned Provider 04/19/20 09/20/20 Natasha Cerrato, RN [address] [place] [address] [email or web address] iCMP Special Procedures Technologist 08/14/20 08/31/20 Shanda Wilkinson MD [address] [place] [address] [email or web address] Insurance Assigned Provider 09/20/20 11/16/20 Regulo Lundberg MD [address] [place] [address] [email or web address] Insurance Assigned Provider 11/16/20 04/18/22 Shanda Wilkinson MD [address] [place] [address] [email or web address] Insurance Assigned Provider 04/18/22 01/18/23 Shanda Wilkinson MD [address] [place] [address] [email or web address] Insurance Assigned Provider 04/18/22 02/19/23 documented as of this encounter Additional Source Comments The information contained in this document represents components of the legal health record. It is not the complete legal health record.[facility]
--- OUTSIDE RECORDS SUMMARY | 2025-03-05 17:10 | XMS_ITS | Encounter Summary ---
Author Organization [facility] Address [address] [facility] [address] [place] [address] Phone Care Team Providers Care Pilot Control Operator Name Role Phone Edmund Cope MD Primary Care Provider + Edmund Cope MD Unavailable [phone] Edmund Cope MD Unavailable + [phone] Edmund Cope MD Primary Care Provider + Shannon Garcia NP Primary Care Provid er + Regulo Lnudberg MD Unavailable + Carey Boyd Primary Care Provider + Natasha Cerrato RN Unavailable Shanda Wilkinson MD Unavailable + Regulo Lundberg MD Unavailable + Shanda Wilkinson MD Unavailable + Shanda Wilkinson MD Unavailable [phone] Encounter Details Date Type Department Care Team (Late st Contact Info) Description 05/13/2017 Ancillary Orders Virtual Department [address] [place], [place] [phone] Carey Boyd PA [address] [place] [address] [place] [address] Right shoulder pain, unspecified chronicity Social History Tobacco Use Types Packs/Day Years Used Date Smoking Tobacco: Never Assessed Comments Unknown Sex and Gender Information Value Date Recorded Sex Assigned at Female 12/30/2017 8:12 PM EDT Legal Sex Female 6:50 AM EST Gender Identity Female 12/30/2017 8:12 PM EDT Sexual Orientation Lesbian or Mary 01/21/2023 5: 33 PM EDT documented as of this encounter Plan of Treatment Not on file documented as of this encounter Results * MRI SHOULDER WITHOUT CONTRAST (RIGHT) (05/19/2017 7:24 AM EST) Anatomical Region Laterality Modality Shoulder Right Magnetic Resonan ce 05/19/2017 10:2 1 AM EST Impressions 05/19/2017 10:31 AM EST No evidence of rotator cuff tendon tears. Possible mild tendinosis of the supraspinatus tendon. Trace of fluid in the subacromial/subdeltoid bursa could be due to mild bursitis. POS - [id number] Narrative 05/19/2017 10:31 AM EST HISTORY: Pain, weakness and limited range of motion since horseback riding injury in 03/2017. COMPARISON: None. TECHNIQUE: Exam performed on a 1.5 Ivon high-field MRI scanner. Axial T1 and proton density with fat suppression, oblique coronal proton density with fat suppression and T2 with fat suppression, oblique sagittal T1 and T2 with fat suppression sequences were obtained. MRI SHOULDER FINDINGS: Rotator cuff tendons: No evidence of rotator cuff tendon tears. There is mild increased T2 signal within portions of the mid and distal supraspinatus tendon. The tendon does not appear thickened. Biceps tendon: Normal. Rotator cuff muscles: Normal. Glenoid labrum: Grossly intact. Bursae: Trace of fluid in the subacromial/subdeltoid bursa. Joints: Trace of fluid within the glenohumeral joint. Bones: Trace of cystic change within the posterior lateral aspect of the humeral head. No other abnormalities demonstrated. Other soft tissues: No evidence of soft tissue masses. Procedure Note Marcello Finnegan MD - 05/19/2017 HISTORY: Pain, weakness and limited range of motion since horsebackriding injury in 03/2017. COMPARISON: None. TECHNIQUE: Exam performed on a 1.5 Ivon high-field MRI scanner. Axial T1and proton density with fat suppression, oblique coronal proton densitywith fat suppression and T2 with fat suppression, oblique sagittal T1 andT2 with fat suppression sequences were obtained. MRI SHOULDER FINDINGS: Rotator cuff tendons: No evidence of rotator cuff tendon tears. There ismild increased T2 signal within portions of the mid and distalsupraspinatus tendon. The tendon does not appear thickened. Biceps tendon: Normal. Rotator cuff muscles: Normal. Glenoid labrum: Grossly intact. Bursae: Trace of fluid in the subacromial/subdeltoid bursa. Joints: Trace of fluid within the glenohumeral joint. Bones: Trace of cystic change within the posterior lateral aspect of thehumeral head. No other abnormalities demonstrated. Other soft tissues: No evidence of soft tissue masses. IMPRESSION: No evidence of rotator cuff tendon tears. Possible mild tendinosis of thesupraspinatus tendon. Trace of fluid in the subacromial/subdeltoid bursacould be due to mild bursitis. POS - [id number] Carey Boyd [place] IMG MR EXTREMITY Final Res ult documented in this encounter Visit Diagnoses Diagnosis Right shoulder pain, unspecified chronicity Right shoulder pain, unspecified chronicity documented in this encounter Care Teams Pilot Control Operator Relationship Specialty Start Date End Date Edmund Cope MD PCP - General Internal Medicine 05/16/17 01/07/20 Edmund Cope MD PCP - General Internal Medicine 01/08/20 02/14/20 Shannon Garcia NP [address] [place] [address] [email or web address] PCP - General Family Medicine 02/15/20 08/12/20 Carey Boyd PA [address] [place] [address] PCP - General Quantitative Research Analyst 08/13/20 Edmund Cope MD [address] [place] [address] [email or web address] Insurance Assigned Provider 10/14/18 03/24/19 Edmund Cope MD [address] [place] [address] [email or web address] Insurance Assigned Provider 09/19/19 04/19/20 Regulo Lundberg MD [address] [place] [address] [email or web address] Insurance Assigned Provider 04/19/20 09/20/20 Natasha Cerrato RN [address] [place] [address] [email or web address] iCMP Soils Analyst 08/14/20 08/31/20 Shanda Wilkinson MD [address] [place] [address] [email or web address] Insurance Assigned Provider 09/20/20 11/16/20 Regulo Lundberg MD [address] [place] [address] [email or web address] Insurance Assigned Provider 11/16/20 04/18/22 Shanda Wilkinson MD [address] [place] [address] [email or web address] Insurance Assigned Provider 04/18/22 01/18/23 Shanda Wilkinson MD [address] [place] [address] [email or web address] Insurance Assigned Provider 04/18/22 02/19/23 documented as of this encounter Additional Source Comments The information contained in this document represents components of the legal health record. It is not the complete legal health record.[facility]
--- OUTSIDE RECORDS SUMMARY | 2025-03-05 17:10 | XMS_ITS | Encounter Summary ---
Author Organization [facility] Address [address] [facility] [address] [place] [address] Phone Care Team Providers Care Cracking Machine Operator Name Role Phone Edmund Cope MD Primary Care Provider + Edmund Cope MD Unavailable [phone] Edmund Cope MD Primary Care Provider + Shannon Garcia NP Primary Care Provid er + Regulo Lundberg MD Unavailable + Carey Boyd Primary Care Provider + Natasha Cerrato RN Unavailable Shanda Wilkinson MD Unavailable [phone] Regulo Lundberg MD Unavailable + Shanda Wilkinson MD Unavailable + Shanda Wilkinson MD Unavailable [phone] Encounter Details Date Type Department Care Team (Late st Contact Info) Description 01/04/2020 Procedure Pass [facility], [address] [place], [place] [phone] Social History Tobacco Use Types Packs/Day Years [...] on filedocumented in this encounter Care Teams Cracking Machine Operator Relationship Specialty Start Date End Date Edmund Cope MD [email or web address] PCP - General Internal Medicine 05/16/17 01/07/20 Edmund Cope MD [email or web address] PCP - General Internal Medicine 01/08/20 02/14/20 Shannon Garcia NP [address] [place] [address] [email or web address] PCP - General Family Medicine 02/15/20 08/12/20 Carey Boyd PA [address] [place] [address] PCP - General Mechanical Inspector 08/13/20 Edmund Cope MD [address] [place] [address] [email or web address] Insurance Assigned Provider 09/19/19 04/19/20 Regulo Lundberg MD [address] [place] [address] [email or web address] Insurance Assigned Provider 04/19/20 09/20/20 Natasha Cerrato, RN [address] [place] [address] [email or web address] iCMP Wig Comber 08/14/20 08/31/20 Shanda Wilkinson MD [address] [place] [address] [email or web address] Insurance Assigned Provider 09/20/20 11/16/20 Regulo Lundberg MD [address] [place] [address] [email or web address] Insurance Assigned Provider 11/16/20 04/18/22 Shanda Wilkinson MD [address] [place] [address] [email or web address] Insurance Assigned Provider 04/18/22 01/18/23 Shanda Wilkinson MD [address] [place] [address] [email or web address] Insurance Assigned Provider 04/18/22 02/19/23 documented as of this encounter Additional Source Comments The information contained in this document represents components of the legal health record. It is not the complete legal health record.[facility]
--- OUTSIDE RECORDS SUMMARY | 2025-03-05 17:10 | XMS_ITS | Encounter Summary ---
Author Organization [facility] Address [address] [email or web address] [facility] [address] [place] [address] Phone Care Team Providers Care Hr Coordinator Name Role Phone Edmund Cope MD Primary [...] MD Unavailable + Shanda Wilkinson MD Unavailable [phone] Encounter Details Date Type Department Care Team (Late st Contact Info) Description 05/13/2017 Procedure Pass [facility], [address] [phone] Social History Tobacco Use Types Packs/Day Years [...] on filedocumented in this encounter Care Teams Hr Coordinator Relationship Specialty Start Date End Date Edmund Cope MD [email or web address] PCP - General Internal Medicine 05/16/17 01/07/20 Edmund Cope MD [email or web address] PCP - General Internal Medicine 01/08/20 02/14/20 Shannon Garcia NP [address] [place] [address] [email or web address] PCP - General Family Medicine 02/15/20 08/12/20 Carey Boyd PA [address] [place] [address] PCP - General Senior Boiler Operator 08/13/20 Edmund Cope MD [address] [place] [address] [email or web address] Insurance Assigned Provider 10/14/18 03/24/19 Edmund Cope MD [address] [place] [address] [email or web address] Insurance Assigned Provider 09/19/19 04/19/20 Regulo Lundberg MD [address] [place] [address] [email or web address] Insurance Assigned Provider 04/19/20 09/20/20 Natasha Cerrato, RN [address] [place] [address] [facility] Pick Pulling Machine Operator 08/14/20 08/31/20 Shanda Wilkinson MD [address] [place] [address] Insurance Assigned Provider 09/20/20 11/16/20 Regulo Lundberg MD [address] [place] [address] [email or web address] Insurance Assigned Provider 11/16/20 04/18/22 Shanda Wilkinson MD [address] [place] [phone] Insurance Assigned Provider 04/18/22 01/18/23 Shanda Wilkinson MD [address] [place] [address] Insurance Assigned Provider 04/18/22 02/19/23 documented as of this encounter Additional Source Comments The information contained in this document represents components of the legal health record. It is not the complete legal health record.[facility]
--- OUTSIDE RECORDS SUMMARY | 2025-03-05 17:10 | XMS_ITS | Encounter Summary ---
Author Organization [facility] Address [address] [facility] [address] [place] [address] Phone Care Team Providers Care Senior Technical Specialist Name Role Phone Edmund Cope MD Primary Care Provider + Edmund Cope MD Unavailable [phone] Edmund Cope MD Primary Care Provider + Shannon Garcia NP Primary Care Provid er + Regulo Lundberg MD Unavailable + Carey Boyd Primary Care Provider + Natasha Cerrato RN Unavailable Shanda Wilkinson MD Unavailable + Regulo Lundberg MD Unavailable + Shanda Wilkinson MD Unavailable + Shanda Wilkinson MD Unavailable [phone] Encounter Details Date Type Department Care Team (Late st Contact Info) Description 11/14/2019 Procedure Pass [facility], Ct Scan - [facility] [address] [place], [place] [id number] Social History Tobacco Use Types Packs/Day Years [...] on filedocumented in this encounter Care Teams Senior Technical Specialist Relationship Specialty Start Date End Date Edmund Cope MD [email or web address] PCP - General Internal Medicine 05/16/17 01/07/20 Edmund Cope MD [email or web address] PCP - General Internal Medicine 01/08/20 02/14/20 Shannon Garcia NP [address] [place] [id number] [email or web address] PCP - General Family Medicine 02/15/20 08/12/20 Carey Boyd PA [address] [place] [phone] PCP - General Emergency Vehicle Technician 08/13/20 Edmund Cope MD [address] [place] [address] [email or web address] Insurance Assigned Provider 09/19/19 04/19/20 Regulo Lundberg MD [address] [place] [address] [email or web address] Insurance Assigned Provider 04/19/20 09/20/20 Natasha Cerrato, RN [address] [place] [address] [email or web address] Concrete Truck Driver 08/14/20 08/31/20 Shanda Wilkinson MD [address] [place] [address] [email or web address] Insurance Assigned Provider 09/20/20 11/16/20 Regulo Lundberg MD [address] [place] [address] [email or web address] Insurance Assigned Provider 11/16/20 04/18/22 Shanda Wilkinson MD [address] [place] [address] [email or web address] Insurance Assigned Provider 04/18/22 01/18/23 Shanda Wilkinson MD [address] [place] [address] [email or web address] Insurance Assigned Provider 04/18/22 02/19/23 documented as of this encounter Additional Source Comments The information contained in this document represents components of the legal health record. It is not the complete legal health record.[facility]
--- OUTSIDE RECORDS SUMMARY | 2025-03-05 17:10 | XMS_ITS | Encounter Summary ---
Author Organization [facility] Address [address] [facility] [address] [place] [address] Phone Care Team Providers Care Spray Gun Repairer Name Role Phone Edmund Cope MD Primary [...] MD Unavailable + Shanda Wilkinson MD Unavailable [phone] Reason for Referral * MRI/CAT Scan - Closed Specialty Diagnoses / Procedures Referred By Contcoco t Referred To Contact Radiology Diagnoses Multiple joint pain Arthralgia, unspecified joint Procedures MRI Hand (Right) Clay Cavazos MD Phone: tel: fax: Referral ID Status Reason Start Date Expiration Date Visits Re quested Visits Authorized [id number] Closed 01/21/2020 07/19/2020 1 1 * MRI/CAT Scan - Closed Specialty Diagnoses / Procedures Referred By Contac t Referred To Contact Radiology Diagnoses Multiple joint pain Arthralgia, unspecified joint Procedures MRI Hand (Left) Clay Cavazos MD Phone: tel: fax: Referral ID Status Reason Start Date Expiration Date Visits Re quested Visits Authorized [id number] Closed 01/03/2020 03/06/2020 1 1 Encounter Details Date Type Department Care Team (Latest Contact Info) Description 01/04/2020 Transcribe Orders Virtual Department [address] [place] [address] Clay Cavazos MD [address] [place] [phone] Multiple joint pain (Primary Dx); Arthralgia, unspecified joint Social History Tobacco Use Types Packs/Day Years [...] as of this encounter Results * MRI HAND WITH AND WITHOUT CONTRAST (RIGHT) (01/25/2020 10:12 PM EDT) Anatomical Region Laterality Modality Hand Right Magnetic Resonan ce 01/26/2020 8:15 AM EDT Impressions 01/26/2020 8:20 AM EDT Unremarkable MRI appearance of the hand. No indications of tenosynovitis, arthritis or other explanation of pain. POS [id number] Narrative 01/26/2020 8:20 AM EDT TECHNIQUE: 1.5 Ivon scanner. Imaging without and with IV contrast. No comparison. FINDINGS: No marrow edema to suggest bony trauma, tumor or infection. No obvious arthritic changes. No abnormal signal or enhancement in the tendon/sheaths to suggest tenosynovitis. No soft tissue masses or fluid collections. Contents of the carpal tunnel unremarkable. Procedure Note Yasmany Lay MD - 01/26/2020 TECHNIQUE: 1.5 Ivon scanner. Imaging without and with IV contrast. No comparison. FINDINGS: No marrow edema to suggest bony trauma, tumor or infection. No obvious arthritic changes. No abnormal signal or enhancement in the tendon/sheaths to suggesttenosynovitis. No soft tissue masses or fluid collections. Contents of the carpal tunnel unremarkable. IMPRESSION: Unremarkable MRI appearance of the hand. No indications of tenosynovitis,arthritis or other explanation of pain. POS [id number] Clay Cavazos MD IMG MR EXTREMITY Final Result * MRI HAND WITH AND WITHOUT CONTRAST (LEFT) (01/21/2020 7:08 PM EDT) Anatomical Region Laterality Modality Hand Left Magnetic Resonan ce 01/22/2020 8:18 AM EDT Impressions 01/22/2020 8:26 AM EDT No evidence of rheumatoid changes. No other explanation for pain. Correlation with plain radiographs and clinical follow-up recommended. POS [id number] Narrative 01/22/2020 8:26 AM EDT HISTORY: Pain, particularly in the thumb and fingers. COMPARISON: No plain radiographic or other prior imaging submitted for comparison. TECHNIQUE: Nonenhanced and contrast-enhanced sequences performed on a 1.5 Ivon magnet. FINDINGS: Bones: No evidence of erosions. Mild increased signal within the distal aspect of the fifth metacarpal and adjacent soft tissues on fat saturation sequences without corresponding signal changes on T1 sequences is most likely due to poor fat saturation. Joints: No evidence of synovial proliferation. No evidence of joint effusions. Soft tissues: No evidence of soft tissue masses or focal fluid collections. No evidence of tendon abnormalities. Procedure Note Marcello Silva MD - 01/22/2020 HISTORY: Pain, particularly in the thumb and fingers. COMPARISON: No plain radiographic or other prior imaging submitted forcomparison. TECHNIQUE: Nonenhanced and contrast-enhanced sequences performed on a 1.5Tesla magnet. FINDINGS: Bones: No evidence of erosions. Mild increased signal within the distalaspect of the fifth metacarpal and adjacent soft tissues on fat saturationsequences without corresponding signal changes on T1 sequences is mostlikely due to poor fat saturation. Joints: No evidence of synovial proliferation. No evidence of jointeffusions. Soft tissues: No evidence of soft tissue masses or focal fluidcollections. No evidence of tendon abnormalities. IMPRESSION: No evidence of rheumatoid changes. No other explanation for pain.Correlation with plain radiographs and clinical follow-up recommended. POS [id number] Clay Cavazos MD IM MR EXTREMITY Final Result documented in this encounter Visit Diagnoses Diagnosis Multiple joint pain- Primary Pain in joint, multiple sites Arthralgia, unspecified joint Multiple joint pain Pain in joint, multiple sites Arthralgia, unspecified joint Multiple joint pain Pain in joint, multiple sites Arthralgia, unspecified joint documented in this encounter Care Teams Spray Gun Repairer Relationship Specialty Start Date End Date Edmund oCpe MD [email or web address] PCP - General Internal Medicine 05/16/17 01/07/20 Edmund Cope MD PCP - General Internal Medicine 01/08/20 02/14/20 Shannon Garcia, RICARDO [address] [place] [phone] [email or web address] PCP - General Family Medicine 02/15/20 08/12/20 Carey Boyd PA [address] [place] [address] PCP - General Bath Solution Maker 08/13/20 Edmund Cope MD [address] [place] [phone] Insurance Assigned Provider 09/19/19 04/19/20 Regulo Lundberg MD [address] [place] [phone] Insurance Assigned Provider 04/19/20 09/20/20 Natasha Cerrato, FRITZ [address] [place] [address] [employer] Penology Teacher 08/14/20 08/31/20 Shanda Wilkinson MD [address] [place] [address] Insurance Assigned Provider 09/20/20 11/16/20 Regulo Lundberg MD [address] [place] [address] [email or web address] Insurance Assigned Provider 11/16/20 04/18/22 Shanda Wilkinson MD [address] [place] [address] [email or web address] Insurance Assigned Provider 04/18/22 01/18/23 Shanda Wilkinson MD [address] [place] [address] [email or web address] Insurance Assigned Provider 04/18/22 02/19/23 documented as of this encounter Additional Source Comments The information contained in this document represents components of the legal health record. It is not the complete legal health record.[facility]
--- OUTSIDE RECORDS SUMMARY | 2025-03-05 17:10 | XMS_ITS | Clinical Summary ---
Author Organization [facility] Address [address] [facility] [address] [place] [address] Phone Care Team Providers Care Buckler And Lacer Name Role Phone Carey Boyd Primary Care Provider [phone] Allergies Active Allergy Reactions Criticality Noted Date Comments Gabapentin Tremor Low 11/13/2019 Penicillins 06/28/2017 Tolerated cefazolin 06/2017, 11/2019 Scallops Anaphylaxis High 03/24/2020 Medications buPROPion (WELLBUTRIN XL) 300 MG ER 24 hr tablet Take 450 mg by mouth daily. 0 8 Active hydroxychloroqu ine (PLAQUENIL) 200 mg tabletIndicatio ns:rheumotoid Take by mouth 2 (two) times a day. Indications: rheumotoid Active LORazepam (ATIVAN) 0.5 MG tablet Take 0.5 mg by mouth daily. PRN 1 Active traZODone (DESYREL) 100 MG tablet Take 100 mg by mouth nightly at bedtime. 1 1/2 tab daily. 02-28- 1 Active dextroamphetami ne-amphetamine (ADDERALL) 10 mg Tab tablet Take 10 mg by mouth 2 (two) times a day. Active hydrOXYzine HCL (ATARAX) 10 MG tablet Take 10 mg by mouth 2 (two) times a day as needed. 2 Active propranoloL (INDERAL) 10 MG immediate release tablet Take 1 tablet (10 mg total) by mouth 2 (two) times a day. 180 tablet 3 2 Active Active Problems Problem Noted Date Diagnosed Date Small fiber polyneuropathy 04/22/2020 Rheumatoid arthritis 11/13/2019 Overview (04/07/2022): Ill defined. On Plaquenil Assessment & Plan (04/07/2022 3:50 PM EDT): Recommended Dr Bains Anxiety 11/13/2019 Headache 11/13/2019 S/P rotator cuff repair 07/20/2017 Overview (07/20/2017): Right 07/07/[address] Moses Status post labral repair of shoulder 07/20/2017 Overview (07/20/2017): Right 07/07/[address] Moses Right shoulder pain 06/24/2017 Post traumatic stress disorder (PTSD) 10/11/2014 POTS (postural orthostatic tachycardia syndrome) Overview (04/07/2022): Nauseated on Mestinon Gi upset Assessment & Plan (04/07/2022 3:50 PM EDT): Inderal Assessment & Plan (08/29/2020 10:55 AM EDT): In summary, Ivan is a 30 yo F with POTS, MGUS, seronegative RA, GI decrease motility, who is here for management of arrhythmia. She was switched from metoprolol (Rx for POTS) to propranolol due to asymptomatic sinus bradycardia (HR in 40s). Unfortunately her patch monitor just finished this week and just sent back to the company 2 days ago so we don't have any result to discuss with her. We will discuss with her if she has any significant arrhythmias from her patch monitor otherwise she is stable and we agree for her to continue propranolol 10 bid. Monoclonal gammopathy of unknown significance Depression Migraine Resolved Problems Problem Noted Date Diagnosed Date Resolved Date Labral tear of long head of right biceps tendon 07/07/2017 07/07/2017 Immunizations Immunization Administration Dates Next Due COVID-19 (Pre-04/04) Moderna Vaccine, mRNA, PF 04/03/2021 Hepatitis B Adult 01/09/2020,12/10/2019 Hepatitis B, unspecified formulation 11/04/1993, 10/12/1993,04/03/1993 IPV 05/09/2006 Influenza Quadrivalent MDCK w/Preservative IM 03/13/2019 Influenza Quadrivalent w/ Preservative IM 2018 Influenza, Unspecified Formulation 03/06/2020, MMR 04/07/1995,07/02/1992 Meningococcal MCV4, unspecified Formulation 11/2009 Td (adult), not adsorbed 05/09/2006 Zoster recombinant 10/06/2021,07/14/2021 Social History Tobacco Use Types Packs/Day Years Used Date Smoking Tobacco: Former Cigarettes 0.3 3 2 009 - 2011 Smokeless Tobacco: Never Alcohol Use Standard Drinks/Week Comments Yes 0 (1 standard drink = 0.6 oz pur e alcohol) 2 monthly Education Answer Date Recorded Are you interested in more education? Not on mera e 10/08/2022 Are you concerned about learning? Not on file 10/08/2022 No 10/08/2022 No 10/08/2022 Digital Access Answer Date Recorded No 11/09/2022 No 11/09/2022 Reliable internet access at home? Not on file 11/09/2022 Device with a working camera? Not on file Comments No Sex and Gender Information Value Date Recorded Sex Assigned at Female 12/30/2017 8:12 PM EDT Legal Sex Female 6:50 AM EST Gender Identity Female 12/30/2017 8:12 PM EDT Sexual Orientation Lesbian or Mary 01/21/2023 5: 33 PM EDT Last Filed Vital Signs Vital Sign Reading Time Taken Comments Blood Pressure 112/73 10/05/2022 2:23 PM EDT Pulse 62 10/05/2022 2:23 PM EDT Temperature 36.4 C (97.5 F) 10/05/2022 2:23 PM EDT Respiratory Rate 18 10/05/2022 2:23 PM EDT Oxygen Saturation 99% 10/06/2021 11:42 AM EDT Inhaled Oxygen Concentration - - Weight 60.3 kg (133 lb) 02/04/2023 3:56 PM EDT Height 165.1 cm (5' 5 ) 02/04/2023 3:56 PM EDT Body Mass Index 22.13 02/04/2023 3:56 PM EDT Plan of Treatment Health Maintenance Due Date Last Done Comments DEPRESSION SCREENING 2003 SMOKING Hx and SMOKELESS TOBACCO SCREENING 2004 HIV ONE-TIME SCREENING (18-65 YEARS) 2009 INFLUENZA VACCINE (#1) 2025 , 04/06/2023, 03/18/2021, Additional history exists COVID-19 VACCINE ( season) 2025 06/27/2022, 04/03/2021, 07/29/2020, Additional history exists PAP SMEAR 11/15/2026 11/16/2023, 06/16/2020 Adult Td,Tdap Booster 04/05/2027 04/05/2017, 006 MENINGOCOCCAL VACCINES (ACWY) Completed 12/16/2009 HEPATITIS C SCREENING Completed 06/16/2020 HEPATITIS A VACCINES Aged Out No long er eligible based on patient's age to complete this topic HIB VACCINES Aged Out No longer eligi ble based on patient's age to complete this topic MENINGOCOCCAL VACCINES (B) Aged Out N o longer eligible based on patient's age to complete this topic PNEUMOCOCCAL VACCINES (0-49 years) Aged Out No longer eligible based on patient's age to complete this topic Medical Devices Implanted Type Area Clinical Rehab Liaison Device Identifier Shelf Expiration Date Model / Serial / Lot Villas Suture 2 2.3mm 2strand Force Fiber Iconix Intellibraid -Order In Multiples Of 5 - [id number] Implanted:Qty: 3 on 07/07/2017 by Vernon Moses DO at [facility] [employer] Right: Shoulder [employer] 11/11/2018 [id number] / / [id number] Screw Bone 3.5x14mm Cortex Self Tapping Fully Threaded Hex Head Ss - [id number] Implanted:Qty: 1 on 11/20/2019 by Guillermo Pineda MD at [facility] Left: Ankle SYNTHES 204.814 / / AUTO#3 LOAD #1 Bone Plate 141x3.5mm 12 Hole Tubular One Third With Collar Lcp Ss - [id number] Implanted:Qty: 1 on 11/20/2019 by Guillermo Pineda MD at [facility] Left: Ankle SYNTHES 241.421 / / AUTO#3 LOAD #1 Screw Bone 2.7x18mm Cortical Self Tapping Fully Threaded Hex Head Ss Bx/1ea - [id number] Implanted:Qty: 1 on 11/20/2019 by Guillermo Pineda MD at [facility] Left: Ankle SYNTHES 202.818 / / AUTO#3 LOAD #1 Screw Bone 2.7x20mm Cortical Self Tapping Fully Threaded Hex Head Ss - [id number] Implanted:Qty: 1 on 11/20/2019 by Guillermo Pineda MD at [facility] Left: Ankle SYNTHES 202.820 / / AUTO#3 LOAD #1 Screw Bone 12x3.5mm Compression Ss Locking Self Tapping Full Thread T15 Stardrive Recess - [id number] Implanted:Qty: 1 on 11/20/2019 by Guillermo Pineda MD at [facility] Left: Ankle SYNTHES 212.102 / / AUTO#3 LOAD #1 Screw Bone 3.5x12mm Cortex Self Tapping Fully Threaded Hex Head Ss - [id number] Implanted:Qty: 2 on 11/20/2019 by Guillermo Pineda MD at [facility] Left: Ankle SYNTHES 204.812 / / AUTO#3 LOAD #1 Screw Bone 3.5x45mm Cortex Self Tapping Fully Threaded Hex Head Ss - [id number] Implanted:Qty: 1 on 11/20/2019 by Guillermo Pineda MD at [facility] Left: Ankle SYNTHES 204.845 / / AUTO#3 LOAD #1 Screw Bone 3.5x50mm Cortex Ss Self Tapping Hexagonal Socket - [id number] Implanted:Qty: 2 on 11/20/2019 by Guillermo Pineda MD at [facility] Left: Ankle SYNTHES 204.850 / / AUTO#3 LOAD #1 Washer Bone 7.0mm Sm Screw Cannulated Ss - Ssterilizer 4, Load 3: Sterilized 2020 Implanted:Qty: 2 on 08/25/2020 by Guillermo Pineda MD at [facility] Left: Foot SYNTHES 219.98 / STERILIZER 4, LOAD 3: STERILIZED 2020 / Screw Bone 30x3.5mm Cannulated Ss Full Thread Hexagonal Socket Flat Head - Discontinued Per Supplier - Ssterilizer 4, Load 3: Sterilized 2020 Implanted:Qty: 1 on 08/25/2020 by Guillermo Pineda MD at [facility] STANDARD Left: Foot SYNTHES 205.230 / STERILIZER 4, LOAD 3: STERILIZED 2020 / Villas Suture 4.5mm Arthroscopy Reelx Stt Peek Stainless Steel Core Knotless Sharp Tip Expandable Sterile Bx/5ea - [id number] Implanted:Qty: 1 on 07/07/2017 by Vernon Moses DO at [facility] Right: Shoulder [employer] 05/24/2019 [id number] / / [id number] Graft Bone 1.00ml Biocartilage Synthetic Matrix [place]idge Extracellular Filler Syringe - [id number] Implanted:Qty: 1 on 11/20/2019 by Guillermo Pineda MD at [facility] Left: Ankle [employer] 04/11/2024 [id number] / [id number] / Villas Suture 2.9mmx12.5 Pushlock Biocomposite Swivelock Vented Bx/5ea - Must Be Ordered In Multiples Of 5's - [id number] Implanted:Qty: 2 on 11/20/2019 by Guillermo Pineda MD at [facility] Left: Ankle [employer] 09/10/2021 [id number] / / [id number] Kit 1.5cc Graft Bone Augment Synthetic Bioabsorbable - [id number] Implanted:Qty: 1 on 11/20/2019 by Guillermo Pineda MD at [facility] Right: Ankle [employer] 05/12/2021 [id number] / / [id number] Guidewire Pipo 1.94x972is Non Threaded - Ssterilizer4, Load3: Sterilized Implanted:Qty: 2 on 08/25/2020 by Guillermo Pineda MD at [facility] Left: Foot SYNTHES 900.721 / STERILIZER4, LOAD3: STERILIZED / 3.5mm Cannulated Screws, Fully Threaded Implanted:Qty: 1 on 08/25/2020 by Guillermo Pineda MD at [facility] Left: Foot 205.224 / / Description:Sterilizer # nicole d #3 August 11, 2020 Explanted Type Area Clinical Rehab Liaison Device Identifier Shelf Expiration Date Model / Serial / Lot Screw Bone 18x3.5mm Compression Ss Locking Self Tapping Full Thread T15 Stardrive Recess - [id number] Implanted:Qty: 1 by Guillermo Pineda MD Explanted:Qty: 1 on 11/20/2019 by Guillermo Pineda MD at [facility] Left: Ankle SYNTHES 212.105 / / AUTO#3 LOAD #1 Screw Bone 3.5x14mm Cortex Self Tapping Fully Threaded Hex Head Ss - [id number] Implanted:Qty: 1 Explanted:Qty: 1 on 11/20/2019 at [facility] Left: Ankle SYNTHES 204.814 / / AUTO#3 LOAD #1 Procedures Procedure Name Priority Date/Time Associated Diagnosis Comments PAP TEST Routine 11/16/2023 12:00 AM EDT from Last 3 Months or Most Recently Relevant to Health Maintenance Results * Pap Test (11/16/2023 12:00 AM EDT) 11/16/2023 11/17/2023 10: 35 AM EDT Narrative SEE NARRATIVE - 11/22/2023 1:06 PM EDT [address] [address] Erp Implementation Consultant: Jennifer Boyer MD SUPERVISOR ASSEMBLY ROOM Cytology Report FINAL DIAGNOSIS A. PAP SMEAR (THIN PREP) CE: SPECIMEN ADEQUACY: Satisfactory for evaluation; transformation zone present. INTERPRETATION: NEGATIVE FOR INTRAEPITHELIAL LESION OR MALIGNANCY. This specimen was analyzed by the automated ThinPrep Imaging System (FanGager (MyBrandz).) and the selected mishra were reviewed by a philosophy faculty. Electronically Signed Out By: NICOLE Herndon(ASCP) The Pap test is a screening test primarily for squamous cancers and precursors and has associated false-negative and false-positive results. New technologies such as liquid-based preparations may decrease but will not eliminate all false-negative results. Regular sampling and follow-up of unexplained clinical signs and symptoms are recommended to minimize false negative results. PROCEDURES/ADDENDA HPV Testing (Requested) Ordered Date: 11/17/2023 A. PAP SMEAR (THIN PREP) CE: Human Papilloma Virus Test NEGATIVE for high-risk Human Papilloma Virus types 16, 18, 45 and the Other high risk probe set (Includes 31, 33, 35, 39, 51, 52, 56, 58, 59, 66, 68) Note: Testing performed by [employer] Onclarity HR-HPV analysis. Clinical correlation is advised. This HPV test was performed at [facility], [address] [place] [address]. This test has been FDA approved for both SurePath and ThinPrep cervical cytology specimens. The accuracy and precision of this test for all other specimen sources has been verified in the Cytopathology Laboratory of the [facility] and has not been cleared or approved by the U.S. Food and Drug Administration. Clinical correlation is advised. CLINICAL HISTORY Date of Last Menstrual Period: 11-06-2023 Other Clinical Conditions: Screening Pap SPECIMEN SOURCE A: PAP SMEAR (THIN PREP) CE Patient Name: IVAN WILKINSON : 1990 (Age: 33) Sex: F Institution: [facility] Location[facility] Date of Collection: 11/16/2023 Date of Reported: 11/22/2023 13:06 Results to: Shannon SCRUGGSP Shannon Garcia ORDER FILLER CYTOLOGY ORDERABLES Final Result SEE NARRATIVE from Last 3 Months or Most Recently Relevant to Health Maintenance [place] [address] [place] [address] [place] [address] [place] [address] [place] [address] [place] [address] [place] [address] [place] [id number] Advance Directives For more information, please contact: [phone] (9AM - 5PM Sandra/[facility], Tuesday-Tuesday) * Full Code (Presumed) (Latest Code Status on File) Date Activated Date Inactivated Comments 07/07/2017 8:30 AM 07/07/2017 3:58 PM Care Teams Buckler And Lacer Relationship Specialty Start Date End Date Carey Boyd PA [address] [place] [address] PCP - General Sand Mill Operator Facing Sand 08/13/20 Additional Source Comments The information contained in this document represents components of the legal health record. It is not the complete legal health record.[facility]
--- OUTSIDE RECORDS SUMMARY | 2025-03-05 17:10 | XMS_ITS | Encounter Summary ---
Author Organization [facility] Address [address] [employer] [facility] [address] [place] [address] Phone Care Team Providers Care Mixing Machine Feeder Name Role Phone Edmund Cope MD Primary Care Provider + Edmund Cope MD Unavailable + 0 Edmund Cope MD Unavailable + 0 Edmund Cope MD Primary Care Provider + Shnanon Garcia NP Primary Care Provid er + Regulo Lundberg MD Unavailable + Carey Boyd Primary Care Provider + Natasha Cerrato RN Unavailable Shanda Wilkinson MD Unavailable + Regulo Lundberg MD Unavailable + Shanda Wilkinson MD Unavailable + Shanda Wilkinson MD Unavailable +[phone] Encounter Details Date Type Department Care Team (Latest Contact Info) Description 01/24/2018 Transcribe Orders Virtual Department [address] [place] [address] Guillermo Villar MD [address] [place] [address] [email or web address] Elbow pain, left (Primary Dx) Social History Tobacco Use Types [...] as of this encounter Visit Diagnoses Diagnosis Elbow pain, left- Primary Pain in joint, upper arm documented in this encounter Care Teams Mixing Machine Feeder Relationship Specialty Start Date End Date Edmund Cope MD [email or web address] PCP - General Internal Medicine 05/16/17 01/07/20 Edmund Cope MD [email or web address] PCP - General Internal Medicine 01/08/20 02/14/20 Shannon Garcia NP [address] [place] [address] [email or web address] PCP - General Family Medicine 02/15/20 08/12/20 Carey Boyd PA [address] [place] [address] PCP - General Social Media Marketing Manager 08/13/20 Edmund Cope MD [address] [place] [address] [email or web address] Insurance Assigned Provider 10/14/18 03/24/19 Edmund Cope MD [address] [place] [address] [email or web address] Insurance Assigned Provider 09/19/19 04/19/20 Regulo Lundberg MD [address] [place] [address] [email or web address] Insurance Assigned Provider 04/19/20 09/20/20 Natasha Cerrato RN [address] [place] [address] [email or web address] Scourer 08/14/20 08/31/20 Shanda Wilkinson MD [address] [place] [address] [email or web address] Insurance Assigned Provider 09/20/20 11/16/20 Regulo Lundberg MD [address] [place] [address] [email or web address] Insurance Assigned Provider 11/16/20 04/18/22 Shanda Wilkinson MD [address] [place] [address] [email or web address] Insurance Assigned Provider 04/18/22 01/18/23 Shanda Wilkinson MD [address] [place] [address] 71396 [email or web address] Insurance Assigned Provider 04/18/22 02/19/23 documented as of this encounter Additional Source Comments The information contained in this document represents components of the legal health record. It is not the complete legal health record.[facility]
--- OUTSIDE RECORDS SUMMARY | 2025-03-05 17:10 | XMS_ITS | Encounter Summary ---
Author Organization [facility] Address [address] [facility] [address] [place] [address] Phone Care Team Providers Care Supervisor Water Treatment Plant Name Role Phone Edmund Cope MD Primary Care Provider + Edmund Cope MD Unavailable [phone] Edmund Cope MD Primary Care Provider + Shannon Garcia NP Primary Care Provid er + Regulo Lundberg MD Unavailable + Carey Boyd Primary Care Provider + Natasha Cerrato RN Unavailable Shanda Wilkinson MD Unavailable + Regulo Lundberg MD Unavailable + Shanda Wilkinson MD Unavailable + Shanda Wilkinson MD Unavailable +[phone] Encounter Details Date Type Department Care Team (Late st Contact Info) Description 11/20/2019 Procedure Pass [facility] [address] [place] [address] Social History Tobacco Use Types [...] on filedocumented in this encounter Care Teams Supervisor Water Treatment Plant Relationship Specialty Start Date End Date Edmund Cope MD [email or web address] PCP - General Internal Medicine 05/16/17 01/07/20 Edmund Cope MD [email or web address] PCP - General Internal Medicine 01/08/20 02/14/20 Shannon Garcia NP [address] [place] [address] [email or web address] PCP - General Family Medicine 02/15/20 08/12/20 Carey Boyd PA [address] [place] [address]32 PCP - General Building Manager 08/13/20 Edmund Cope MD [address] [place] [address] [email or web address] Insurance Assigned Provider 09/19/19 04/19/20 Regulo Lundberg MD [address] [place] [address] [email or web address] Insurance Assigned Provider 04/19/20 09/20/20 Natasha Cerrato RN [address] [place] [address] [email or web address] iCMP Personnel Interviewer 08/14/20 08/31/20 Shanda Wilkinson MD [address] [place] [address] Insurance Assigned Provider 09/20/20 11/16/20 Regulo Lundberg MD [address] [place] [address] [email or web address] Insurance Assigned Provider 11/16/20 04/18/22 Shanda Wilkinson MD [address] [place] [address] 21318 Insurance Assigned Provider 04/18/22 01/18/23 Shanda Wilkinson MD [address] [place] [address] 46767 Insurance Assigned Provider 04/18/22 02/19/23 documented as of this encounter Additional Source Comments The information contained in this document represents components of the legal health record. It is not the complete legal health record.[facility]
--- OUTSIDE RECORDS SUMMARY | 2025-03-05 17:10 | XMS_ITS | Encounter Summary ---
Author Organization [facility] Address [address] [facility] [address] [place] [address] Phone Care Team Providers Care Public Transportation Inspector Name Role Phone Edmund Cope MD Primary Care Provider + Edmund Cope MD Unavailable [phone] Edmund Cope MD Primary Care Provider + Shannon Garcia NP Primary Care Provid er + Regulo Lundberg MD Unavailable + Carey Boyd Primary Care Provider + Natasha Cerrato RN Unavailable Shanda Wilkinson MD Unavailable +[phone] Regulo Lundberg MD Unavailable + Shanda Wilkinson MD Unavailable + Shanda Wilkinson MD Unavailable + [phone] Encounter Details Date Type Department Care Team (Late st Contact Info) Description 01/04/2020 Procedure Pass [facility], [address] [place], [place] [phone] Social History Tobacco Use Types Packs/Day Years [...] on filedocumented in this encounter Care Teams Public Transportation Inspector Relationship Specialty Start Date End Date Edmund Cope MD PCP - General Internal Medicine 05/16/17 01/07/20 Edmund Cope MD PCP - General Internal Medicine 01/08/20 02/14/20 Shannon Garcia NP [address] [place] [address]77 [email or web address] PCP - General Family Medicine 02/15/20 08/12/20 Carey Boyd PA [address] [place] [address] PCP - General Dancing Instructor 08/13/20 Edmund Cope MD [address] [place] [address] 12054 [email or web address] Insurance Assigned Provider 09/19/19 04/19/20 Regulo Lundberg MD [address] [place] [address] Insurance Assigned Provider 04/19/20 09/20/20 Natasha Cerrato, RN [address] [place] [address] iCMP Appraisal Analyst 08/14/20 08/31/20 Shanda Wilkinson MD [address] [place] [address] Insurance Assigned Provider 09/20/20 11/16/20 Regulo Lundberg MD [address] [place] [address]33 Insurance Assigned Provider 11/16/20 04/18/22 Shanda Wilkinson MD [address] [place] [address] [phone] Insurance Assigned Provider 04/18/22 01/18/23 Shanda Wilkinson MD [address] [place] [address] Insurance Assigned Provider 04/18/22 02/19/23 documented as of this encounter Additional Source Comments The information contained in this document represents components of the legal health record. It is not the complete legal health record.[facility]
--- OUTSIDE RECORDS SUMMARY | 2025-03-05 17:10 | XMS_ITS | Encounter Summary ---
Author Organization [facility] Address [email or web address] [place] [address] Phone Care Team Providers Care Plush Brusher Name Role Phone Regulo Lundberg MD Unavailable Carey Boyd Primary Care Provider [phone] Natasha Cerrato RN Unavailable Shanda Wilkinson MD Unavailable [phone] Regulo Lundberg MD Unavailable Shanda Wilkinson MD Unavailable [phone] Shanda Wilkinson MD Unavailable [phone] Encounter Details Date Type Department Care Team (Late st Contact Info) Description 08/18/2020 Procedure Pass [facility] [address] [facility], [address] [place] [address] Social History Tobacco Use Types [...] on filedocumented in this encounter Care Teams Plush Brusher Relationship Specialty Start Date End Date Carey Boyd PA [address] [place] [address] PCP - General Skull Splitter 08/13/20 Regulo Lundberg MD [address] [place] [address] [email or web address] Insurance Assigned Provider 04/19/20 09/20/20 Natasha Cerrato RN [address] [place] [address] [email or web address] iCMP Casing Machine Operator 08/14/20 08/31/20 Shanda Wilkinson MD [address] [place] [address] Insurance Assigned Provider 09/20/20 11/16/20 Regulo Lundberg MD [address] [place] [address] [email or web address] Insurance Assigned Provider 11/16/20 04/18/22 Shanda Wilkinson MD [address] [place] [address] Insurance Assigned Provider 04/18/22 01/18/23 Shanda Wilkinson MD [address] [place] [address] [email or web address] Insurance Assigned Provider 04/18/22 02/19/23 documented as of this encounter Additional Source Comments The information contained in this document represents components of the legal health record. It is not the complete legal health record.[facility]
--- OUTSIDE RECORDS SUMMARY | 2025-03-05 17:10 | XMS_ITS | Encounter Summary ---
Author Organization [facility] Address [address] [facility] [address] [place] [address] Phone Care Team Providers Care Refractory Manager Name Role Phone Carey Boyd Primary Care Provider Regulo Lundberg MD Unavailable [phone] Shanda Wilkinson MD Unavailable [phone] Shanda Wilkinson MD Unavailable [phone] Encounter Details Date Type Department Care Team (Late st Contact Info) Description 12/08/2021 Procedure Pass [facility] Interventional X-ray Imaging, [place] [address] [place] [address] Social History Tobacco Use Types Packs/Day Years [...] on filedocumented in this encounter Care Teams Refractory Manager Relationship Specialty Start Date End Date Carey Boyd PA [address] [place] [address] PCP - General Gravure Printing Machinist 08/13/20 Regulo Lundberg MD [address] [place] [address] [email or web address] Insurance Assigned Provider 11/16/20 04/18/22 Shanda Wilkinson MD [address] [place] [address] Insurance Assigned Provider 04/18/22 01/18/23 Shanda Wilkinson MD [address] [place] [address] Insurance Assigned Provider 04/18/22 02/19/23 documented as of this encounter Additional Source Comments The information contained in this document represents components of the legal health record. It is not the complete legal health record.[facility]
--- OUTSIDE RECORDS SUMMARY | 2025-03-05 17:11 | XMS_ITS | Encounter Summary ---
Author Organization [facility] Address [address] [employer] [facility] [address] [place] [address] Phone Care Team Providers Care Surgical Processor Name Role Phone Edmund Cope MD Primary Care Provider + Edmund Cope MD Unavailable + 0 Edmund Cope MD Unavailable + 0 Edmund Cope MD Primary Care Provider + Shannon Garcia NP Primary Care Provid er + Regulo Lundberg MD Unavailable + Carey Boyd Primary Care Provider + Natasha Cerrato RN Unavailable Shanda Wilkinson MD Unavailable + Regulo Lundberg MD Unavailable + Shanda Wilkinsno MD Unavailable + Shanda Wilkinson MD Unavailable + Reason for Referral * Consultation (Elective) - Closed Specialty Diagnoses / Procedures Referred By Contac t Referred To Contact Neurology Diagnoses Myoclonus Chronic ankle pain, unspecified laterality System, Provider Not In, [facility] [address] [address] Phone: tel: Referral ID Status Reason Start Date Expiration Date Visits Re quested Visits Authorized [id number] Closed 09/01/2018 09/02/2019 1 1 Encounter Details Date Type Department Care Team (Latest Contact Info) Description 09/01/[address] [facility] NEUROLOGY VIRTUAL DEPARTMENT [address] [place] [id number] Self-Referred, Patient Myoclonus (Primary Dx); Chronic ankle pain, unspecified laterality Social History Tobacco Use Types Packs/Day Years Used Date Smoking Tobacco: Former Cigarettes 0.3 5 2 2011 Smokeless Tobacco: Never Alcohol Use Standard [...] Diagnoses Orde r Schedule Ambulatory referral to [facility] Neurology Outpatient Referral Routine Myoclonus Chronic ankle pain, unspecified laterality Ordered: 09/01/2018 documented as of this encounter Visit Diagnoses Diagnosis Myoclonus- Primary Chronic ankle pain, unspecified laterality documented in this encounter Care Teams Surgical Processor Relationship Specialty Start Date End Date Edmund Cope MD [email or web address] PCP - General Internal Medicine 05/16/17 01/07/20 Edmund Cope MD PCP - General Internal Medicine 01/08/20 02/14/20 Shannon Garcia NP [address] [place] [address] [email or web address] PCP - General Family Medicine 02/15/20 08/12/20 Carey Boyd PA [address] [place] [address] PCP - General Consumer Insights Specialist 08/13/20 Edmund Cope MD [address] [place] [address] [email or web address] Insurance Assigned Provider 10/14/18 03/24/19 Edmund Cope MD [address] [place] [address] [email or web address] Insurance Assigned Provider 09/19/19 04/19/20 Regulo Lundberg MD [address] [place] [address] [email or web address] Insurance Assigned Provider 04/19/20 09/20/20 Natasha Cerrato RN [address] [place] [address] [email or web address] iCMP Spa Manager 08/14/20 08/31/20 Shanda Wilkinson MD [address] [place] [address] [email or web address] Insurance Assigned Provider 09/20/20 11/16/20 Regulo Lundberg MD [address] [place] [address] [email or web address] Insurance Assigned Provider 11/16/20 04/18/22 Shanda Wilkinson MD [address] [place] [address] [email or web address] Insurance Assigned Provider 04/18/22 01/18/23 Shanda Wilkinson MD [address] [place] [address] [email or web address] Insurance Assigned Provider 04/18/22 02/19/23 documented as of this encounter Additional Source Comments The information contained in this document represents components of the legal health record. It is not the complete legal health record.[facility]
--- OUTSIDE RECORDS SUMMARY | 2025-03-05 17:11 | XMS_ITS | Encounter Summary ---
Author Organization [facility] Address [address] [employer] [facility] [address] [place] [address] Phone Care Team Providers Care Transmission Maintenance Supervisor Name Role Phone Shannon Garcia NP Primary Care Provid er Regulo Lundberg MD Unavailable [phone] Carey Boyd Primary Care Provider [phone] Natasha Cerrato RN Unavailable Shanda Wilkinson MD Unavailable Regulo Lundbegr MD Unavailable [phone] Shanda Wilkinson MD Unavailable [phone] Shanda Wilkinson MD Unavailable [phone] Encounter Details Date Type Department Care Team (Late st Contact Info) Description 05/15/2020 Procedure Pass [facility] [address] [place], [place] [phone] Social History Tobacco Use Types Packs/Day Years [...] on filedocumented in this encounter Care Teams Transmission Maintenance Supervisor Relationship Specialty Start Date End Date Shannon Garcia NP [address] [place] [address] [email or web address] PCP - General Family Medicine 02/15/20 08/12/20 Carey Boyd PA [address] [place] [address] PCP - General Hr Intern 08/13/20 Regulo Lundberg MD [address] [place] [address] Insurance Assigned Provider 04/19/20 09/20/20 Natasha Cerrato, FRITZ [address] [place] [address] iCMP Coke Oven Patcher 08/14/20 08/31/20 Shanda Wilkinson MD [address] [place] [address] Insurance Assigned Provider 09/20/20 11/16/20 Regulo Lundberg MD [address] [place] [address] [email or web address] Insurance Assigned Provider 11/16/20 04/18/22 Shanda Wilkinson MD [address] [place] [address] [email or web address] Insurance Assigned Provider 04/18/22 01/18/23 Shanda Wilkinson MD [address] [place] [address] [email or web address] Insurance Assigned Provider 04/18/22 02/19/23 documented as of this encounter Additional Source Comments The information contained in this document represents components of the legal health record. It is not the complete legal health record.[facility]
--- OUTSIDE RECORDS SUMMARY | 2025-03-05 17:11 | XMS_ITS | Encounter Summary ---
Author Organization [facility] Address [address] [employer] [facility] [address] [place] [address] Phone Care Team Providers Care Box Stacker Name Role Phone Carey Boyd Primary Care Provider + [phone] Regulo Lundberg MD Unavailable [phone] Shanda Wilkinson MD Unavailable [phone] Shanda Wilkinson MD Unavailable [phone] Encounter Details Date Type Department Care Team (Late st Contact Info) Description 01/19/2022 Procedure Pass [facility], [address] [address] Social History Tobacco Use Types Packs/Day Years [...] on filedocumented in this encounter Care Teams Box Stacker Relationship Specialty Start Date End Date Carey Boyd PA [address] [place] [address] PCP - General Edger Hand 08/13/20 Regulo Lundberg MD [address] [place] [address] [email or web address] Insurance Assigned Provider 11/16/20 04/18/22 Shanda Wilkinson MD [address] [place] [address] Insurance Assigned Provider 04/18/22 01/18/23 Shanda Wilkinson MD [address] [place] [address] Insurance Assigned Provider 04/18/22 02/19/23 documented as of this encounter Additional Source Comments The information contained in this document represents components of the legal health record. It is not the complete legal health record.[facility]
--- OUTSIDE RECORDS SUMMARY | 2025-03-05 17:11 | XMS_ITS | Encounter Summary ---
Author Organization [facility] Address [address] [facility] [address] [place] [address] Phone Care Team Providers Care Senior Engineering Manager Name Role Phone Carey Boyd Primary Care Provider Regulo Lundberg MD Unavailable [phone] Shanda Wilkinson MD Unavailable [phone] Shanda Wilkinson MD Unavailable [phone] Reason for Referral * Physical Therapy (Routine) - Closed Specialty Diagnoses / Procedures Referred By Meche t Referred To Contact Physical Therapy Diagnoses Encounter for rehabilitation Shannon Garcia NP [address] [place] [address] Phone: tel: fax: [email or web address] [address] [place] [address] Phone: tel: Referral ID Status Reason Start Date Expiration Date Visits Re quested Visits Authorized [id number] Closed 02/13/2021 02/13/2022 1 1 Encounter Details Date Type Department Care Team (Latest Contact Info) Description 02/13/2021 Transcribe Orders [facility] [address] [place] [address] Shannon Garcia NP [address] [place] [address] [place] [phone] [email or web address] Encounter for rehabilitation (Primary Dx) Social History [...] Diagnoses Orde r Schedule Ambulatory referral to [facility] Physical Therapy Outpatient Referral Routine Encounter for rehabilitation Ordered: 02/13/2021 documented as of this encounter Visit Diagnoses Diagnosis Encounter for rehabilitation- Primary documented in this encounter Care Teams Senior Engineering Manager Relationship Specialty Start Date End Date Carey Boyd PA [address] [place] [address] PCP - General Cutting Pressman 08/13/20 Regulo Lundberg MD [address] [place] [phone] Insurance Assigned Provider 11/16/20 04/18/22 Shanda Wilkinson MD [address] [place] [address] Insurance Assigned Provider 04/18/22 01/18/23 Shanda Wilkinson MD [address] [place] [address] [email or web address] Insurance Assigned Provider 04/18/22 02/19/23 documented as of this encounter Additional Source Comments The information contained in this document represents components of the legal health record. It is not the complete legal health record.[facility]
--- OUTSIDE RECORDS SUMMARY | 2025-03-05 17:11 | XMS_ITS | Encounter Summary ---
Author Organization [facility] Address [address] [facility] [address] [place] [address] Phone Care Team Providers Care Surgical Training Specialist Name Role Phone Edmund Cope MD [...] MD Unavailable + Shanda Wilkinson MD Unavailable [phone] Encounter Details Date Type Department Care Team (Late st Contact Info) Description 08/09/2018 Ancillary Orders Virtual Department [address] [place], [place] [id number] Aniya Jimenez MD [address] [facility] [address] [place] [address] Abnormal involuntary movement Social History Tobacco Use Types Packs/Day Years Used Date Smoking Tobacco: Former Cigarettes 0.3 5 2 007 - 2011 Smokeless Tobacco: Never Alcohol Use [...] documented as of this encounter Results * EEG (08/11/2018 2:07 PM EST) Anatomical Region Laterality Modality EEG Narrative 08/14/2018 3:34 PM EST [facility] ELECTROENCEPHALOGRAPHY (EEG) LAB INTRODUCTION: The patient is a 28 year old woman referred for a question of RUE tremors. MEDICATIONS: Not listed CONDITION OF RECORDING: Digitally recorded EEG with the patient awake, drowsy and asleep with no instructions for sleep deprivation. All electrodes were applied in accordance with the International 10-20 System. A single channel EKG lead was recorded to help identify artifact. SPECIAL PROCEDURES: None. EEG DESCRIPTION: Cerebral electrical activity with the patient awake was characterized by a well organized background with a 9 Hz, 60-80 uV posterior maximum reactive alpha rhythm that attenuated well with eye opening. Her right hand tremor appeared irregular, somewhat accentuated during hyperventilation, but without any appreciable abnormality on EEG. Stage I sleep was characterized by an increase in slow eye movements and a fragmentation of the alpha rhythm. Stage II sleep was characterized by synchronous and symmetric sleep spindles, vertex waves and K complexes. Photic stimulation produced a negligible photic driving response. Hyperventilation did not yield any pathological abnormalities. Her RUE tremor worsened during HV and post-HV, but there was no corresponding change on the EEG. She endorsed some difficulty raising her arms post-HV, again without any change on the EEG. INTERPRETATION: This routine EEG, obtained with the patient awake, drowsy, and asleep, is within normal limits. There was no EEG correlate to her right hand tremors. No epileptiform activity or persistent focal asymmetries occurred. MD Sameer Berrios [facility] Aniya Jimenez MD NEUROLOGY ORDERABLES Fi nal Result documented in this encounter Visit Diagnoses Diagnosis Abnormal involuntary movement Abnormal involuntary movements Abnormal involuntary movement Abnormal involuntary movements documented in this encounter Care Teams Surgical Training Specialist Relationship Specialty Start Date End Date Edmund Cope MD [email or web address] PCP - General Internal Medicine 05/16/17 01/07/20 Edmund Cope MD [email or web address] PCP - General Internal Medicine 01/08/20 02/14/20 Shannon Garcia NP [address] [place] [id number] [email or web address] PCP - General Family Medicine 02/15/20 08/12/20 Carey Boyd PA [address] [place] [address] PCP - General Ec Teacher 08/13/20 Edmund Cope MD [address] [place] [address] [email or web address] Insurance Assigned Provider 10/14/18 03/24/19 Edmund Cope MD [address] [place] [address] [email or web address] Insurance Assigned Provider 09/19/19 04/19/20 Regulo Lundberg MD [address] [place] [phone] [email or web address] Insurance Assigned Provider 04/19/20 09/20/20 Natasha Cerrato, RN [address] [place] [phone] [email or web address] Business And Marketing Teacher 08/14/20 08/31/20 Shanda Wilkinson MD [address] [place] [phone] [email or web address] Insurance Assigned Provider 09/20/20 11/16/20 Regulo Lundberg MD [address] [place] [phone] [email or web address] Insurance Assigned Provider 11/16/20 04/18/22 Shanda Wilkinson MD [address] [place] [phone] Insurance Assigned Provider 04/18/22 01/18/23 Shanda Wilkinson MD [address] [place] [phone] [email or web address] Insurance Assigned Provider 04/18/22 02/19/23 documented as of this encounter Additional Source Comments The information contained in this document represents components of the legal health record. It is not the complete legal health record.[facility]
--- OUTSIDE RECORDS SUMMARY | 2025-03-05 17:11 | XMS_ITS | Encounter Summary ---
Author Organization [facility] Address [address] [facility] [address] [place] [address] Phone Care Team Providers Care Internal Combustion Engine Assembler Name Role Phone Carey Boyd Primary Care Provider + [phone] Regulo Lundberg MD Unavailable [phone] Shanda Wilkinson MD Unavailable [phone] Shanda Wilkinson MD Unavailable [phone] Encounter Details Date Type Department Care Team (Late st Contact Info) Description 01/27/2021 Procedure Pass [facility] [address] [place] [address] Social History Tobacco Use Types [...] on filedocumented in this encounter Care Teams Internal Combustion Engine Assembler Relationship Specialty Start Date End Date Carey Boyd PA [address] [place] [address] PCP - General Permit Review Assistant 08/13/20 Regulo Lundberg MD [address] [place] [address] [email or web address] Insurance Assigned Provider 11/16/20 04/18/22 Shanda Wilkinson MD [address] [place] [address] Insurance Assigned Provider 04/18/22 01/18/23 Shanda Wilkinson MD [address] [place] [address] Insurance Assigned Provider 04/18/22 02/19/23 documented as of this encounter Additional Source Comments The information contained in this document represents components of the legal health record. It is not the complete legal health record.[facility]
--- OUTSIDE RECORDS SUMMARY | 2025-03-05 17:11 | XMS_ITS | Encounter Summary ---
Author Organization [facility] Address [address] [facility] [address] [place] [address] Phone Care Team Providers Care Bridge Contractor Name Role Phone Edmund Cope MD Primary [...] MD Unavailable + Shanda Wilkinson MD Unavailable [phone] Encounter Details Date Type Department Care Team (Late st Contact Info) Description 11/15/2018 Procedure Pass [facility], [address] [phone] Social History Tobacco Use Types Packs/Day Years [...] on filedocumented in this encounter Care Teams Bridge Contractor Relationship Specialty Start Date End Date Edmund Cope MD [email or web address] PCP - General Internal Medicine 05/16/17 01/07/20 Edmund Cope MD [email or web address] PCP - General Internal Medicine 01/08/20 02/14/20 Shannon Garcia NP [address] [place] [phone] [email or web address] PCP - General Family Medicine 02/15/20 08/12/20 Carey Boyd PA [address] [place] [phone] PCP - General Spike Driver 08/13/20 Edmund Cope MD [address] [place] [phone] [email or web address] Insurance Assigned Provider 10/14/18 03/24/19 Edmund Cope MD [address] [place] [address] [email or web address] Insurance Assigned Provider 09/19/19 04/19/20 Regulo Lundberg MD [address] [place] [address] [email or web address] Insurance Assigned Provider 04/19/20 09/20/20 Natasha Cerrato RN [address] [place] [phone] [email or web address] 08/14/20 08/31/20 Shanda Wilkinson MD [address] [place] [phone] [email or web address] Insurance Assigned Provider 09/20/20 11/16/20 Regulo Lundberg MD [address] [place] [phone] [email or web address] Insurance Assigned Provider 11/16/20 04/18/22 Shanda Wilkinson MD [address] [place] [phone] [email or web address] Insurance Assigned Provider 04/18/22 01/18/23 Shanda Wilkinson MD [address] [place] [address] [email or web address] Insurance Assigned Provider 04/18/22 02/19/23 documented as of this encounter Additional Source Comments The information contained in this document represents components of the legal health record. It is not the complete legal health record.[facility]
--- OUTSIDE RECORDS SUMMARY | 2025-03-05 17:11 | XMS_ITS | Encounter Summary ---
Author Organization [facility] Address [address] [facility] [address] [place] [address] Phone Care Team Providers Care Voice Systems Engineer Name Role Phone Carey Boyd Primary Care Provider [phone] Shanda Wilkinson MD Unavailable Encounter Details Date Type Department Care Team (Late st Contact Info) Description 01/24/2023 Procedure Pass [address] [place] [address] Social History Tobacco Use Types Packs/Day Years [...] on filedocumented in this encounter Care Teams Voice Systems Engineer Relationship Specialty Start Date End Date Carey Boyd PA [address] [place] [address] PCP - General Drapery Hanger 08/13/20 Shanda Wilkinson MD [address] [place] [address] [email or web address] Insurance Assigned Provider 04/18/22 02/19/23 documented as of this encounter Additional Source Comments The information contained in this document represents components of the legal health record. It is not the complete legal health record.[facility]
== END 2025-03-05 15:28 | disposition home or self-care (01) ==
PROVIDERS: Emergency Provider Emergency Medicine; PCP Physician Assistant Medical
DX: S93.402A Sprain of unspecified ligament of left ankle, initial encounter (principal); M25.572 Pain in left ankle and joints of left foot; X58.XXXA Exposure to other specified factors, initial encounter; Y93.9 Activity, unspecified; Y92.9 Unspecified place or not applicable; Y99.9 Unspecified external cause status
CPT/HCPCS: 73610; 73630; 96372; 99284; J1885

== ENCOUNTER → 2025-03-05 13:30 | Outpatient (BNV) | payer OTHER, SELFPAY | PROVIDERS: Emergency Provider Emergency Medicine; PCP Physician Assistant Medical; Visit Provider Radiology Diagnostic Radiology | DX: R22.42 Localized swelling, mass and lump, left lower limb (principal); M20.12 Hallux valgus (acquired), left foot; W19.XXXA Unspecified fall, initial encounter | CPT/HCPCS: 73610; 73630 ==

== ENCOUNTER 2025-03-12 10:39 | Outpatient (AMB) | payer OTHER, SELFPAY ==
--- NOTE | 2025-03-12 10:50 | MHC.OFFVIS ---
Vital Signs 03/12/25 10:51 Height 5 ft 5 in Weight 150 lb BMI 25.0 Intake Visit Reasons: left ankle sprain Intake Note: Ivan is a 34 year old female who presents today as a new patient for her left ankle sprain. Pt states the sprain occurred when she fell of her horse last Tuesday and she was seen at the ED where she was provided with a walking boot. She states she is able to bare weight and walk with the boot, and without the boot she is able to bear weight but can not walk to much. Patient took Tylenol and Toradol for the first couple days but is not taking anything currently. Foot X ray IMPRESSION: Hallux valgus deformity with mild first MTP joint osteoarthritis. Surgical fusion of the distal tibiofibular joint. Ankle X ray IMPRESSION: There is mature bone bridging the distal tibia and fibula joint. There is lateral soft tissue swelling. No other abnormality is identified. Allergies scallops Allergy (Unknown, Unverified 03/05/25 13:31) Unknown Gabapentin Allergy (Unknown, Uncoded 03/05/25 13:31) neurologic side effects HPI HPI left ankle sprain: Details: The patient is a 34-year-old female presenting for initial evaluation of left ankle sprain. The patient notes history of the left ankle sprain that occurred 1 week ago after stepping off of her horse. She was seen at the emergency room at [facility] and received x-rays which were deemed to be negative for fractures. She has been weight-bearing in a cam boot since then. She notes improvement in her pain and swelling over the past week however she is still unable to ambulate without her cam boot. Patient notes she typically rolls her ankle 1-2 times per week. The patient has undergone multiple imaging studies, including an MRI in 2022, which showed normal findings despite clinical laxity and instability. She states that she has to wear an AFO brace which helped her during her rehab however she has not worn it for a few years. She does not use any ankle support or brace due to them not fitting in her shoes. 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 A tightrope procedure was attempted but failed, leading to a Z lengthening of the fibula with partial fusion at [facility]. Additionally, the patient sustained a Lisfranc fracture in the same foot during rehabilitation, which was managed with pinning and subsequent hardware removal. The patient reports persistent pain and weakness in the left big toe joint, exacerbated by activities that require her to push off of her big toe joint, such as lunges and weighted exercises. She attributed to loss of muscle tone and strength under the foot. 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 - Exercise: Engages in activities such as lunges and weighted exercises, rides horses, and plays tennis three times a week [facility] Medical History (Updated 03/12/25 @ 11:46 by Santana Turner DPM) Triceps tendon rupture Overweight with body mass index (BMI) of 26 to 26.9 in adult Injury of left elbow Annual physical exam Hyperlipidemia with target low density lipoprotein (LDL) cholesterol less than 100 mg/dL Vitamin D deficiency Small fiber neuropathy Fracture of distal end of left fibula Multiple joint pain Postural orthostatic tachycardia syndrome PTSD (post-traumatic stress disorder) Selective immunoglobulin M deficiency Monoclonal gammopathy Channing's thyroiditis Surgical History S/P hardware removal S/P right rotator cuff repair S/P posterior Bankart repair of right shoulder Family History Paternal Grandfather Malignant carcinoid tumor of lung Mother Thyroid nodule Malignant tumor of thyroid gland Social History Household Members: None Patient Tobacco Use Status: Former Tobacco user Tobacco use type: Cigarette service: No Current occupational status: employed Current occupation: [employer], right hand dominant Review of Systems Const All systems reviewed & are unremarkable except as noted in HPI and below Physical Exam Vital Signs: BMI result Body Mass Index 25.0 Extrem Other: *Bilateral Lower Extremity Focused Exam Vascular: DP/PT 2/4, CFT<3s to digits, TG warm to cool, mild left lateral ankle edema. No pedal edema. Derm: Moderate ecchymosis over the lateral aspect of the ankle, from the level of the distal fibula to the talus. No ecchymosis over the foot. Healed surgical incisions along the medial and lateral ankle. Neuro: Protective sensation grossly intact to bilateral lower extremities. MSK: Left lower extremity: Moderate tenderness on palpation of the ATFL over the lateral ankle and the lateral gutter. Ankle inversion 3:1 bilaterally. Ankle dorsiflexion 0 degrees with the rigid block. On weight-bearing, ankle dorsiflexion -5 degrees closed chain. No tenderness on palpation along the tarsometatarsal joints, navicular tuberosity, 5th metatarsal tuberosity. Mild tenderness on palpation along the medial aspect and plantar aspect of the 1st metatarsal shaft on push-off stance. Left 1st Metatarsal-phalangeal joint dorsiflexion 80 degrees. Tracking hallux valgus deformity with prominent medial eminence. No pain on palpation of the sesamoids. Results Reviewed Results Reviewed: Podiatry X-ray Read: 03/05/2025 X-ray left ankle 3 views (AP, Mortise, Lateral) reviewed which shows no fractures, dislocations, osteochondral defects. Foreign body/partial screw present in the syndesmotic region of the tibia. Synostosis of the tibia and fibula at the level of the syndesmosis. Anatomic alignment of the tibiotalar joint. Mild joint space narrowing of the calcaneocuboid joint. Bone density is within normal limits. No evidence of swelling, foreign body, or calcifications. I personally reviewed the imaging and my findings are listed above. Podiatry X-ray Read: 03/05/2025 X-ray left foot 3 views (AP, Mortise, Lateral) reviewed which shows no fractures, dislocations, osteochondral defects. There is mild diastasis of the 1st and 2nd metatarsal bases, measuring 1.89 mm from medial cuneiform to the 2nd metatarsal base. Moderate joint space narrowing of the 1st , 2nd, and 3rd tarsometatarsal joints. Mild narrowing of the 1st Metatarsal-phalangeal joint with flattening of the medial eminence and mild cystic changes. First metatarsal IM angle is 11. Tibial sesamoid position is 4. I personally reviewed the imaging and my findings are listed above. Assessment & Plan Assessment & Plan (1) Left ankle sprain: Code(s): S93.402A - Sprain of unspecified ligament of left ankle, initial encounter Category: Medical Qualifiers: Encounter type: initial encounter Involved ligament of ankle: anterior talofibular ligament Qualified Code(s): S93.492A - Sprain of other ligament of left ankle, initial encounter Plan: Reviewed left foot and ankle x-rays with the patient. Instructed to weight-bearing Cam boot for the next 2 weeks. She may transition from a Cam boot to her AFO brace or a lace-up ankle brace after 1 week if her symptoms improve. Continue rest ice compression elevation. She was referred to physical therapy however she was recommended to wait until her next visit to start proprioception training. Instructed to perform range of motion exercises at home for her ankle. Work note dispensed with appropriate work restrictions. Follow up in 2 weeks. (2) Arthritis of foot, left: Code(s): M19.072 - Primary osteoarthritis, left ankle and foot Category: Medical Plan: Discussed that her symptoms for her midfoot and forefoot pain may be related to her Lisfranc joint versus compensation and her 1st metatarsophalangeal joint due to restricted Lisfranc joint and ankle joint motion. She was referred for weight-bearing x-rays of her left foot to evaluate the Lisfranc joint diastasis. (3) Ankle ligament laxity: Code(s): M24.273 - Disorder of ligament, unspecified ankle Category: Medical Qualifiers: Laterality: left Qualified Code(s): M24.272 - Disorder of ligament, left ankle Plan: Discussed that her MRI findings were reported to be normal for her lateral ankle ligaments however her clinical findings are significant for increased ankle inversion. Differential diagnosis includes subtalar joint instability. Treatment options were discussed in the form of lateral ankle repair due to her frequent history of ankle sprains. She was referred for weight-bearing x-rays of her left ankle to evaluate for any rotational deformities. Patient will require a new MRI prior to surgical planning if she pursues treatment. She was otherwise recommended continued use of her AFO brace. Orders: Orders XR ankle LT min 3V Today S93.402A - Sprain of unspecified ligament of left ankle, initial encounter XR foot LT min 3V Today M19.072 - Primary osteoarthritis, left ankle and foot PT Evaluation and Treatment Today M19.072 - Primary osteoarthritis, left ankle and foot, S93.402A - Sprain of unspecified ligament of left ankle, initial encounter Coding Level of Care Code New Pt Level 4 (38310) Diagnoses Sprain of anterior talofibular ligament of left ankle, initial encounter S93.492A Encounter type: initial encounter Involved ligament of ankle: anterior talofibular ligament Arthritis of foot, left M19.072 Ligamentous laxity of left ankle M24.272 Laterality: left Time Spent (min) 50
[2025-03-12 10:51] VITALS: BMI 25.0
== END 2025-03-12 11:20 | disposition home or self-care (01) ==
LOC: HO.HPODS 10:39
PROVIDERS: PCP Physician Assistant Medical; Visit Provider Student in an Organized Health Care Education/Training Program
DX: S93.492A Sprain of other ligament of left ankle, initial encounter (principal); M19.072 Primary osteoarthritis, left ankle and foot; M24.272 Disorder of ligament, left ankle
CPT/HCPCS: 99204

== ENCOUNTER 2025-03-14 08:54 | Outpatient (AMB) | payer OTHER, SELFPAY ==
--- NOTE | 2025-03-14 08:55 | MHC.PC.OV ---
Vital Signs 03/14/25 08:56 Height 5 ft 5 in Weight 150 lb BMI 25.0 BP 121/66 Blood Pressure Location Rt brachial Position Sitting Respiration 16 Pulse 69 Pulse Source Pulse Oximeter Temp 98.6 F Temp Source Temporal Artery Scan Intake Visit Reasons: Follow up Accompanied by: Self / Same As Patient Allergies scallops Allergy (Unknown, Verified 03/14/25 09:23) Unknown Gabapentin Allergy (Unknown, Uncoded 03/14/25 09:23) neurologic side effects Medication List - Last Reconciled 03/14/25 by Elicia Valentin PA-C acetaminophen (Tylenol Extra Strength) 1,000 mg (2 x 500 mg) PO Q8H PRN cholecalciferol (vitamin D3) 1,250 mcg PO QWEEK 3 months dextroamphetamine-amphetamine 15 mg ER 15 mg PO BID 90 days hydroxychloroquine 200 mg PO ONCE propranolol 10 mg PO ONCE trazodone 100 mg PO DAILY Tobacco use date assessed: 03/14/25 Dental Screening Dental Screen Date: 03/14/25 Did you have a dental visit in the last 12 months?: Yes Did you have a dental problem in the last 6 months where you did not have access to dental care?: No Was dental information given to patient?: Yes HPI Follow up HPI Details The patient is a 34-year-old female presenting with a breast lump and concerns regarding an ankle sprain. Approximately a week and a half ago, the patient experienced a fall resulting in an ankle sprain on the side with a history of multiple surgeries. She is currently using a boot for immobilization and plans to transition to an ankle-foot orthosis (AFO) to prevent further injury. The patient has a history of osteoarthritis and partial tibiofibular fusion, contributing to joint instability. The patient discovered a lump in her right breast approximately four months ago. The lump is not tender, and there is no family history of breast cancer. The patient has been diagnosed with monoclonal gammopathy, which is being monitored by her healthcare providers. Her blood work from August indicated hyperlipidemia and vitamin D deficiency, for which she has been taking supplements. Social History - Employment: The patient is currently working, as indicated by her discussion about returning to work. [facility] Medical History (Updated 03/14/25 @ 09:32 by Elicia Valentin PA-C) Ankle sprain Hyperlipidemia Breast lump Triceps tendon rupture Overweight with body mass index (BMI) of 26 to 26.9 in adult Injury of left elbow Annual physical exam Hyperlipidemia with target low density lipoprotein (LDL) cholesterol less than 100 mg/dL Vitamin D deficiency Small fiber neuropathy Fracture of distal end of left fibula Multiple joint pain Postural orthostatic tachycardia syndrome PTSD (post-traumatic stress disorder) Selective immunoglobulin M deficiency Monoclonal gammopathy Channing's thyroiditis Surgical History S/P hardware removal S/P right rotator cuff repair S/P posterior Bankart repair of right shoulder Family History Paternal Grandfather Malignant carcinoid tumor of lung Mother Thyroid nodule Malignant tumor of thyroid gland Social History Household Members: None Housing: Apartment Patient Tobacco Use Status: Former Tobacco user Tobacco use type: Cigarette service: No Current occupational status: employed Cognitive needs: No Hearing needs: No Vision needs: No Questionnaire PHQ-9 Over the last 2 weeks, how often have you been bothered by any of the following problems? 1. Little interest or pleasure in doing things: not at all 2. Feeling down, depressed, or hopeless: not at all 3. Trouble falling or staying asleep, or sleeping too much: not at all 4. Feeling tired or having little energy: not at all 5. Poor appetite or overeating: not at all 6. Feeling bad about yourself - or that you are a failure or have let yourself or your family down: not at all 7. Trouble concentrating on things, such as reading the newspaper or watching television: not at all 8. Moving or speaking so slowly that other people could have noticed. Or the opposite - being so fidgety or restless that you have been moving around a lot more than usual: not at all 9. Thoughts that you would be better off or of hurting yourself in some way: not at all Total score: 0 Depression Screening Interpretation: Negative Depression Screening Done: Yes 41230 - PHQ-9 Billing: Yes Source: Developed by Drs. Arvind Delaney, Mirian Joe, Earl Keller and colleagues, with an educational helena from [employer]. Thrive Questionnaire Date Thrive assessed: 03/14/25 I am a: Patient What is your living situation today?: I have a steady place to live Within the past 12 months, did the food you bought not last and you didn't have the money to get more?: Never true Within the past 12 months, did you worry whether your food would run out before you got money to buy more?: Never true Do you have trouble paying for medicines?: No Do you have trouble getting transportation to medical appointments?: No Do you have trouble paying your heating and electricity bill?: No Do you have trouble taking care of your child, family member or friend?: No Do you have trouble with day-to-day activities such as bathing, preparing meals, shopping, managing finances, etc.?: No Are you currently unemployed and looking for a job?: No Are you interested in more education?: No Please select the resources that you would like help with: None THRIVE Score: 0 AUDIT C Alcohol Use Questionnaire (AUDIT-C) 1. How often do you have a drink containing alcohol?: Monthly or less Total Score: 1 Score Reviewed/Action Taken: No MARK-7 AMB Questionnaire MARK-7 Date MARK - 7 assessed: 03/14/25 Feeling nervous, anxious, or on edge: 0 = Not at all Not being able to stop or control worryin = Not at all Worrying too much about different things: 0 = Not at all Trouble relaxin = Not at all Being so restless that it is hard to sit still: 0 = Not at all Becoming easily annoyed or irritable: 0 = Not at all Feeling afraid as if something awful might happen: 0 = Not at all Total MARK-7 score (0-4 normal; 5-9 mild; 10-14 moderate; 15-21 severe): 0 Source: Developed by Drs. Arvind Delaney, Mirian Joe, Earl Keller and colleagues, with an educational helena from [employer]. MARK-7 Assessment Billing MARK-7 Assessment Tool: MARK-7 Assessment 88545 Review of Systems Const Details: - Musculoskeletal: Reports ankle sprain following a fall. - Breast: Reports a lump in the right breast, non-tender. - General: Denies family history of breast cancer. All systems reviewed & are unremarkable except as noted in HPI and below Physical exam (Primary Care) Vital Signs: Last Vital Signs Temp 98.6 F 03/14/25 08:56 Pulse 69 03/14/25 08:56 Resp 16 03/14/25 08:56 BP 121/66 03/14/25 08:56 Care Plan Goal for BP management: <140/90 at Goal BMI result Body Mass Index 25.0 BMI Assessment/Plan discussion: High BMI High, discussed plan: lifestyle, weight reduction, dietary, physical activity, alcohol moderation and other Tobacco/Smoking Status: Tobacco use Status Tobacco use date assessed 03/14/25 03/14/25 09:04 Patient Tobacco Use Status Former Tobacco user 03/14/25 09:04 Tobacco use type Cigarette 03/14/25 09:04 PHQ-9: PHQ-9 Score PHQ-9: Total score 0 03/14/25 09:04 Depression Screening Interpretation: Negative Thrive Assessment: Date of Thrive Assessment Date Thrive assessed 03/14/25 03/14/25 09:04 Const Other: Appearance: Alert. Oriented X3. No acute distress. Head: Normal external exam. Normocephalic. Atraumatic. Eyes: Pupils are equal, round, and reactive to light. Extraocular movements intact. Conjunctiva and sclera normal. Eyelids normal. Throat: Pharynx normal. Uvula midline. Moist mucous membranes. Neck: Normal inspection. Neck supple. Full range of motion. Breast: To the right breast at the 12:00 patient has small lump. There is no surrounding erythema, streaking, fluctuance noted at this time. There is no nipple discharge. There are no rashes noted. Cardiovascular: Normal heart rate and rhythm. Heart sound normal. No murmurs noted. Pulses normal throughout. Respiratory: No respiratory distress. Painless inspiration. Back: Full range of motion noted. Skin: Skin warm and dry. Normal skin color. Extremities: Right ankle in a boot due to recent sprain. Office Procedures Flu Questionnaire Does the patient have a severe egg allergy?: No Does the patient have severe life threatening allergies?: No Does the patient have a fever or illness today?: No Has the patient ever had Guillain-[place] Syndrome?: No Has the patient ever had any past reaction to a flu shot?: No Immunizations Fluarix [id number] (PF) 45 mcg (15 mcg x 3)/0.5 mL IM syringe Performing Provider: Elicia Valentin PA-C [facility] Administered by: Tamie Jameson CMA on 03/14/25 09:10 Dose Route Admin Location Dispensed Lot Number Expiration Date NDC [employer] 0.5 mL IM Left Deltoid 0.5 mL [id number] 12/10/25 [id number] [employer] VIS Given Date VIS Provided VIS Publication Date 03/14/25 Single Vaccine 24 Eligibility Eligibility Date Funding Source Not [facility] Eligible 03/14/25 Private Results Reviewed Results Reviewed: - Labs: Blood work from August showed hyperlipidemia and vitamin D deficiency. Coding Level of Care Code Est Pt Level 4 (37192) Complex EM visit Add On G2211 Diagnoses Breast lump N63.0 Ankle sprain S93.409A Monoclonal gammopathy D47.2 Hyperlipidemia E78.5 Vitamin D deficiency E55.9 Additional Codes PHQ-9 - 44489 - PHQ-9 Billing: Yes ([id number]) MARK-7 Assessment Billing - MARK-7 Assessment Tool: MARK-7 Assessment 65829 ([id number]) Assessment & Plan Assessment & Plan (1) Breast lump: Comment: at 12 o'clock Code(s): N63.0 - Unspecified lump in unspecified breast Category: Medical Plan: An ultrasound of the right breast is ordered to evaluate the lump, followed by a mammogram if necessary. The patient is advised to monitor for any changes and report if the lump becomes tender or increases in size. (2) Ankle sprain: Code(s): S93.409A - Sprain of unspecified ligament of unspecified ankle, initial encounter Category: Medical Plan: The patient is advised to continue using the boot for another week and then transition to an ankle-foot orthosis (AFO) to prevent further injury. Follow-up with podiatry is recommended to assess healing and discuss potential future interventions. (3) Monoclonal gammopathy: Code(s): D47.2 - Monoclonal gammopathy Category: Medical Plan: The patient is advised to continue regular monitoring of monoclonal gammopathy with annual follow-ups with Hematology. (4) Hyperlipidemia: Code(s): E78.5 - Hyperlipidemia, unspecified Category: Medical Plan: The patient is advised to continue dietary modifications and monitor lipid levels regularly. (5) Vitamin D deficiency: Code(s): E55.9 - Vitamin D deficiency, unspecified Category: Medical Plan: The patient is advised to continue taking vitamin D supplements and monitor levels as needed. Plan Plan Patient was informed and verbally consented to the use of an ambient scribe for clinic note documentation during this visit. 1. Ankle Sprain The patient is advised to continue using the boot for another week and then transition to an ankle-foot orthosis (AFO) to prevent further injury. Follow-up with podiatry is recommended to assess healing and discuss potential future interventions. 2. Breast Lump An ultrasound of the right breast is ordered to evaluate the lump, followed by a mammogram if necessary. The patient is advised to monitor for any changes and report if the lump becomes tender or increases in size. 3. Monoclonal Gammopathy The patient is advised to continue regular monitoring of monoclonal gammopathy with annual follow-ups with Hematology. 4. Hyperlipidemia The patient is advised to continue dietary modifications and monitor lipid levels regularly. 5. Vitamin D Deficiency The patient is advised to continue taking vitamin D supplements and monitor levels as needed. I discussed with the patient the importance of monitoring the breast lump and the steps involved in the diagnostic process, including ultrasound and potential mammogram. We also reviewed the management of her ankle sprain, emphasizing the transition to an AFO and the need for follow-up with podiatry. The patient was advised to continue monitoring her monoclonal gammopathy and to maintain her current regimen for hyperlipidemia and vitamin D deficiency. Orders: Orders US breast RT limited Today N63.0 - Unspecified lump in unspecified breast Influenza [id number] Immunization Today Z23 - Encounter for immunization Medications: Changed From hydroxychloroquine 200 mg PO BID 90 days 180 tabs 1RF To hydroxychloroquine 200 mg PO ONCE From propranolol 10 mg PO BID 180 tabs 1RF To propranolol 10 mg PO ONCE Patient Instructions: - Continue using the boot for another week, then transition to an AFO. - Schedule follow-up with podiatry to assess ankle healing. - Monitor the breast lump for changes and report if it becomes tender or increases in size. - Follow up with Rheumatology annually for monoclonal gammopathy monitoring. - Continue dietary modifications and monitor lipid levels. - Continue taking vitamin D supplements.
[2025-03-14 08:56] VITALS: BP 121/66; PULSE 69; RESP 16; TEMP 37; BMI 25.0
--- OUTSIDE RECORDS SUMMARY | 2025-03-14 09:30 | XMS_ITS | Encounter Summary ---
Author Organization [facility] Address [address] [facility] [address] [place] [address] Phone Care Team Providers Care Semiconductor Technician Name Role Phone Edmund Cope MD Primary Care Provider + Edmund Cope MD Unavailable [phone] Edmund Cope MD Primary Care Provider + Shannon Garcia NP Primary Care Provid er + Regulo Lundberg MD Unavailable + Carey Boyd Primary Care Provider + Natasha Cerrato RN Unavailable Shanda Wilkinson MD Unavailable [phone] Regulo Lundberg MD Unavailable + Shanda Wilkinson MD Unavailable + Shanda Wilkinson MD Unavailable [phone] Encounter Details Date Type Department Care Team (Late st Contact Info) Description 01/04/2020 Procedure Pass [facility], [address] [id number] Social History Tobacco Use Types Packs/Day Years [...] on filedocumented in this encounter Care Teams Semiconductor Technician Relationship Specialty Start Date End Date Edmund Cope MD [email or web address] PCP - General Internal Medicine 05/16/17 01/07/20 Edmund Cope MD [email or web address] PCP - General Internal Medicine 01/08/20 02/14/20 Shannon Garcia NP [address] [place] [address] [email or web address] PCP - General Family Medicine 02/15/20 08/12/20 Carey Boyd PA [address] [place] [phone] PCP - General Special Education Classroom Aide 08/13/20 Edmund Cope MD [address] [place] [address] [email or web address] Insurance Assigned Provider 09/19/19 04/19/20 Regulo Lundberg MD [address] [place] [address] [email or web address] Insurance Assigned Provider 04/19/20 09/20/20 Natasha Cerrato, RN [address] [place] [address] [email or web address] Window Shade Cloth Sewer 08/14/20 08/31/20 Shanda Wilkinson MD [address] [place] [phone] [email or web address] Insurance Assigned Provider 09/20/20 11/16/20 Regulo Lundberg MD [address] [place] [address] [email or web address] Insurance Assigned Provider 11/16/20 04/18/22 Shanda Wilkinson MD [address] [place] [address] [email or web address] Insurance Assigned Provider 04/18/22 01/18/23 Shanda Wilkinson MD [address] [place] [address] [email or web address] Insurance Assigned Provider 04/18/22 02/19/23 documented as of this encounter Additional Source Comments The information contained in this document represents components of the legal health record. It is not the complete legal health record.[facility]
--- OUTSIDE RECORDS SUMMARY | 2025-03-14 09:30 | XMS_ITS | Encounter Summary ---
Author Organization [facility] Address [address] [facility] [address] [place] [address] Phone Care Team Providers Care Brick Paver Name Role Phone Edmund Cope MD Primary [...] MD Unavailable + Shanda Wilkinson MD Unavailable [phone] Reason for Referral * MRI/CAT Scan - Closed Specialty Diagnoses / Procedures Referred By Contcoco t Referred To Contact Radiology Diagnoses Multiple joint pain Arthralgia, unspecified joint Procedures MRI Hand (Right) Clay Cavazos MD Phone: tel: fax: Referral ID Status Reason Start Date Expiration Date Visits Re quested Visits Authorized [id number] Closed 01/21/2020 07/19/2020 1 1 * MRI/CAT Scan - Closed Specialty Diagnoses / Procedures Referred By Contac t Referred To Contact Radiology Diagnoses Multiple joint pain Arthralgia, unspecified joint Procedures MRI Hand (Left) Clay Cavazos MD Phone: tel: fax: Referral ID Status Reason Start Date Expiration Date Visits Re quested Visits Authorized [id number] Closed 01/03/2020 03/06/2020 1 1 Encounter Details Date Type Department Care Team (Latest Contact Info) Description 01/04/2020 Transcribe Orders Virtual Department [address] [place] [address] Clay Cavazos MD [address] [place] [phone] Multiple joint pain (Primary Dx); Arthralgia, unspecified [...] arthritis or other explanation of pain. POS [id number] Narrative 01/26/2020 8:20 AM EDT TECHNIQUE: 1.5 [...] tenosynovitis,arthritis or other explanation of pain. POS [id number] Clay Cavazos MD IMG MR EXTREMITY Final [...] joint documented in this encounter Care Teams Brick Paver Relationship Specialty Start Date End Date Edmund Cope MD PCP - General Internal Medicine 05/16/17 01/07/20 Edmund Cope MD PCP - General Internal Medicine 01/08/20 02/14/20 Shannon Garcia, RICARDO [address] [place] [address] [email or web address] PCP - General Family Medicine 02/15/20 08/12/20 Carey Boyd PA [address] [place] [phone] PCP - General Firmware Test Engineer 08/13/20 Edmund Cope MD [address] [place] [phone] Insurance Assigned Provider 09/19/19 04/19/20 Regulo Lundberg MD [address] [place] [phone] Insurance Assigned Provider 04/19/20 09/20/20 Natasha Cerrato, FRITZ [address] [place] [phone] [employer] Painting And Coating Worker 08/14/20 08/31/20 Shanda Wilkinson MD [address] [place] [phone] Insurance Assigned Provider 09/20/20 11/16/20 Regulo Lundberg MD [address] [place] [address] [email or web address] Insurance Assigned Provider 11/16/20 04/18/22 Shanda Wilkinson MD [address] [place] [address] [email or web address] Insurance Assigned Provider 04/18/22 01/18/23 Shanda Wilkinson MD [address] [place] [address] [email or web address] Insurance Assigned Provider 04/18/22 02/19/23 documented as of this encounter Additional Source Comments The information contained in this document represents components of the legal health record. It is not the complete legal health record.[facility]
--- OUTSIDE RECORDS SUMMARY | 2025-03-14 09:30 | XMS_ITS | Encounter Summary ---
Author Organization [facility] Address [address] [facility] [address] [place] [address] Phone Care Team Providers Care Bioinformatics Technician Name Role Phone Edmund Cope MD Primary Care Provider + Edmund Cope MD Unavailable [phone] Edmund Cope MD Primary Care Provider [...] st Contact Info) Description 11/14/2019 Procedure Pass [facility], Ct Scan - [facility] [address] [place], [place] [phone] Social History Tobacco Use Types Packs/Day Years [...] filedocumented in this encounter Care Teams Bioinformatics Technician Relationship Specialty Start Date End Date Edmund Cope MD [email or web address] PCP - General Internal Medicine 05/16/17 01/07/20 Edmund Cope MD [email or web address] PCP - General Internal Medicine 01/08/20 02/14/20 Shannon Garcia NP [address] [place] [address] [email or web address] PCP - General Family Medicine 02/15/20 08/12/20 Carey Boyd PA [address] [place] [phone] PCP - General Sinter Feeder 08/13/20 Edmund Cope MD [address] [place] [address] [email or web address] Insurance Assigned Provider 09/19/19 04/19/20 Regulo Lundberg MD [address] [place] [address] [email or web address] Insurance Assigned Provider 04/19/20 09/20/20 Natasha Cerrato, RN [address] [place] [address] [email or web address] [email or web address] International Account Manager 08/14/20 08/31/20 Shanda Wilkinson MD [address] [place] [phone] [email or web address] Insurance Assigned Provider 09/20/20 11/16/20 Regulo Lundberg MD [address] [place] [address] [email or web address] Insurance Assigned Provider 11/16/20 04/18/22 Shanda Wilkinson MD [address] [place] [phone] [email or web address] Insurance Assigned Provider 04/18/22 01/18/23 Shanda Wilkinson MD [address] [place] [phone] [email or web address] Insurance Assigned Provider 04/18/22 02/19/23 documented as of this encounter Additional Source Comments The information contained in this document represents components of the legal health record. It is not the complete legal health record.[facility]
--- OUTSIDE RECORDS SUMMARY | 2025-03-14 09:30 | XMS_ITS | Encounter Summary ---
Author Organization [facility] Address [address] [facility] [address] [place] [address] Phone Care Team Providers Care Cleaning Custodian Name Role Phone Edmund Cope MD Unavailable [phone] Shannon Garcia NP Primary Care Provid er Regulo Lundberg MD Unavailable [phone] Carey Boyd Primary Care Provider [phone] Natasha Cerrato RN Unavailable Shanda Wilkinson MD Unavailable Regulo Lundberg MD Unavailable [phone] Shanda Wilkinson MD Unavailable [phone] Shanda Wilkinson MD Unavailable [phone] Reason for Referral * Outpatient Procedure - Closed Specialty Diagnoses / Procedures Referred By Meche yuan Referred To Contact Radiology Diagnoses Nausea Vomiting without nausea, intractability of vomiting not specified, unspecified vomiting type Abnormal weight loss Procedures NM Gastric Emptying Moise Gomez MD Phone: tel: fax: mailto: Referral ID Status Reason Start Date Expiration Date Visits Re quested Visits Authorized [id number] Closed 03/11/2020 03/11/2021 1 1 Encounter Details Date Type Department Care Team (Latest Contact Info) Description 03/11/2020 Transcribe Orders Virtual Department [address] [place] [address] Moise Gomez MD [address] [address] [email or web address] Nausea (Primary Dx); Vomiting without [...] activity is still present in the stomach (ncuhjn77-34%) At two hours 45% of activity is still present in the stomach (-34%) At four hours is 2.5% of activity is still present in the stomach (normal0-10%) IMPRESSION: Normal gastric emptying. POS - [id number] Moise Gomez MD [facility] Final Result documented in this encounter Visit Diagnoses Diagnosis Nausea- Primary Nausea alone Vomiting without nausea, intractability of vomiting not specified, unspecified vomiting type Abnormal weight loss Loss of weight Nausea Nausea alone Vomiting without nausea, intractability of vomiting not specified, unspecified vomiting type Abnormal weight loss Loss of weight documented in this encounter Care Teams Cleaning Custodian Relationship Specialty Start Date End Date Shannon Garcia NP [address] [place] [address] [email or web address] PCP - General Family Medicine 02/15/20 08/12/20 Carey Boyd PA [address] [place] [address] PCP - General Grain Receiver 08/13/20 Edmund Cope MD [address] [place] [address] [email or web address] Insurance Assigned Provider 09/19/19 04/19/20 Regulo Lundberg MD [address] [place] [address] [email or web address] Insurance Assigned Provider 04/19/20 09/20/20 Natasha Cerrato, RN [address] [place] [address] [email or web address] [facility] Math Instructor 08/14/20 08/31/20 Shanda Wilkinson MD [address] [place] [address] [email or web address] Insurance Assigned Provider 09/20/20 11/16/20 Reuglo Lundberg MD [address] [place] [address] [email or web address] Insurance Assigned Provider 11/16/20 04/18/22 Shanda Wilkinson MD [address] [place] [address] Insurance Assigned Provider 04/18/22 01/18/23 Shanda Wilkinson MD [address] [place] [phone] Insurance Assigned Provider 04/18/22 02/19/23 documented as of this encounter Additional Source Comments The information contained in this document represents components of the legal health record. It is not the complete legal health record.[facility]
--- OUTSIDE RECORDS SUMMARY | 2025-03-14 09:30 | XMS_ITS | Encounter Summary ---
Author Organization [facility] Address [address] [facility] [address] [place] [address] Phone Care Team Providers Care System Engineer Name Role Phone Regulo Lundberg MD Unavailable [phone] Carey Boyd Primary Care Provider [phone] Shanda Wilkinson MD Unavailable [phone] Regulo Lundberg MD Unavailable Shanda Wilkinson MD Unavailable [phone] Shanda Wilkinson MD Unavailable [phone] Encounter Details Date Type Department Care Team (Late st Contact Info) Description 09/08/2020 Ancillary Orders [facility] Department of Orthopaedic Surgery, Foot & Ankle Service [address] [facility], 3rd Floor, [address] [place] [address] Ruiz Sauer PA-C [address] [place] [address] [email or web address] Pain Social History Tobacco Use Types Packs/Day [...] pain documented in this encounter Care Teams System Engineer Relationship Specialty Start Date End Date Carey Boyd PA [address] [place] [address] PCP - General Immigration Manager 08/13/20 Regulo Lundberg MD [address] [place] [address] Insurance Assigned Provider 04/19/20 09/20/20 Shanda Wilkinson MD [address] [place] [address] Insurance Assigned Provider 09/20/20 11/16/20 Regulo Lundberg MD [address] [place] [address] Insurance Assigned Provider 11/16/20 04/18/22 Shanda Wilkinson MD [address] [place] [address]161 Insurance Assigned Provider 04/18/22 01/18/23 Shanda Wilkinson MD [address] [place] [address] Insurance Assigned Provider 04/18/22 02/19/23 documented as of this encounter Additional Source Comments The information contained in this document represents components of the legal health record. It is not the complete legal health record.[facility]
--- OUTSIDE RECORDS SUMMARY | 2025-03-14 09:30 | XMS_ITS | Encounter Summary ---
Author Organization [facility] Address [address] [facility] [place] [address] [place] [address] Phone Care Team Providers Care Asp Net Mvc Developer Name Role Phone Edmund Cope MD Primary Care Provider + Edmund Cope MD Unavailable [phone] Edmund Cope MD Primary Care Provider + Shannon Garcia NP Primary Care Provid er + Regulo Lundberg MD Unavailable + Carey Boyd Primary Care Provider + Natasha Cerrato RN Unavailable Shanda Wilkinson MD Unavailable [phone] Regulo Lundberg MD Unavailable + Shanda Wilkinson MD Unavailable + Shanda Wilkinson MD Unavailable [phone] Encounter Details Date Type Department Care Team (Late st Contact Info) Description 01/04/2020 Procedure Pass [facility], [address] [id number] Social History Tobacco Use Types Packs/Day Years [...] on filedocumented in this encounter Care Teams Asp Net Mvc Developer Relationship Specialty Start Date End Date Edmund Cope MD [email or web address] PCP - General Internal Medicine 05/16/17 01/07/20 Edmund Cope MD [email or web address] PCP - General Internal Medicine 01/08/20 02/14/20 Shannon Garcia NP [address] [place] [address] [email or web address] PCP - General Family Medicine 02/15/20 08/12/20 Carey Boyd PA [address] [place] [address] PCP - General Director Advertising 08/13/20 Edmund Cope MD [address] [place] [address] [email or web address] Insurance Assigned Provider 09/19/19 04/19/20 Regulo Lundberg MD [address] [place] [address] [email or web address] Insurance Assigned Provider 04/19/20 09/20/20 Natasha Cerrato, RN 10 [place] [address] [email or web address] iCMP Assistant Community Manager 08/14/20 08/31/20 Shanda Wilkinson MD [address] [place] [address] [email or web address] Insurance Assigned Provider 09/20/20 11/16/20 Reuglo Lundberg MD [address] [place] [address] [email or web address] Insurance Assigned Provider 11/16/20 04/18/22 Shanda Wilkinson MD [address] [place] [address] [email or web address] Insurance Assigned Provider 04/18/22 01/18/23 Shanda Wilkinson MD [address] [place] [address] [email or web address] Insurance Assigned Provider 04/18/22 02/19/23 documented as of this encounter Additional Source Comments The information contained in this document represents components of the legal health record. It is not the complete legal health record.[facility]
--- OUTSIDE RECORDS SUMMARY | 2025-03-14 09:30 | XMS_ITS | Encounter Summary ---
Author Organization [facility] Address [address] [employer] [facility] [address] [place] [address] Phone Care Team Providers Care Shearing Machine Operator Name Role Phone Edmund Cope MD Primary Care Provider + Edmund Cope MD Unavailable [phone] Edmund Cope MD Primary Care Provider + Shannon Garcia NP Primary Care Provid er + Regulo Lundberg MD Unavailable + Carey Boyd Primary Care Provider + Natasha Cerrato RN Unavailable Shanda Wilkinson MD Unavailable + Regulo Lundberg MD Unavailable + Shanda Wilkinson MD Unavailable + Shanda Wilkinson MD Unavailable [phone] Encounter Details Date Type Department Care Team (Late st Contact Info) Description 11/14/2019 Procedure Pass [place] [facility], Ct Scan - [facility] [address] [place], [place] [id number] Social History Tobacco Use Types Packs/Day Years [...] on filedocumented in this encounter Care Teams Shearing Machine Operator Relationship Specialty Start Date End Date Edmund Cope MD [email or web address] PCP - General Internal Medicine 05/16/17 01/07/20 Edmund Cope MD [email or web address] PCP - General Internal Medicine 01/08/20 02/14/20 Shannon Garcia NP [address] [place] [address] [email or web address] PCP - General Family Medicine 02/15/20 08/12/20 Carey Boyd PA [address] [place] [address] PCP - General Multi Site Leasing Consultant 08/13/20 Edmund Cope MD [address] [place] [address] [email or web address] Insurance Assigned Provider 09/19/19 04/19/20 Regulo Lundberg MD [address] [place] [address] [email or web address] Insurance Assigned Provider 04/19/20 09/20/20 Natasha Cerrato, RN [address] [place] [address] [email or web address] iCMP Midwife Practitioner 08/14/20 08/31/20 Shanda Wilkinson MD [address] [place] [address] [email or web address] Insurance Assigned Provider 09/20/20 11/16/20 Regulo Lundberg MD [address] [place] [address] [email or web address] Insurance Assigned Provider 11/16/20 04/18/22 Shanda Wilkinson MD [address] [place] [address] [email or web address] Insurance Assigned Provider 04/18/22 01/18/23 Shanda Wilkinson MD [address] [place] [address] [email or web address] Insurance Assigned Provider 04/18/22 02/19/23 documented as of this encounter Additional Source Comments The information contained in this document represents components of the legal health record. It is not the complete legal health record.[facility]
--- OUTSIDE RECORDS SUMMARY | 2025-03-14 09:30 | XMS_ITS | Encounter Summary ---
Author Organization [facility] Address [address] [facility] [address] [place] [address] Phone Care Team Providers Care Book Cleaner Name Role Phone Edmund Cope MD Primary Care Provider + Edmund Cope MD Unavailable [phone] Edmund Cope MD Primary Care Provider + Shannon Garcia NP Primary Care Provid er + Regulo Lundberg MD Unavailable + Carey oByd Primary Care Provider + Natasha Cerrato RN Unavailable Shanda Wilkinson MD Unavailable + Regulo Lundberg MD Unavailable + Shanda Wilkinson MD Unavailable + Shanda Wilkinson MD Unavailable [phone] Encounter Details Date Type Department Care Team (Late st Contact Info) Description 11/20/2019 Procedure Pass [facility] [address] [place] [address] Social History Tobacco Use Types [...] on filedocumented in this encounter Care Teams Book Cleaner Relationship Specialty Start Date End Date Edmund Cope MD [email or web address] PCP - General Internal Medicine 05/16/17 01/07/20 Edmund Cope MD [email or web address] PCP - General Internal Medicine 01/08/20 02/14/20 Shannon Garcia NP [address] [place] [address] [email or web address] PCP - General Family Medicine 02/15/20 08/12/20 Carey Boyd PA [address] [place] [address] PCP - General Supervisor Sewer Maintenance 08/13/20 Edmund Cope MD [address] [place] [address] [email or web address] Insurance Assigned Provider 09/19/19 04/19/20 Regulo Lundberg MD [address] [place] [address] [email or web address] Insurance Assigned Provider 04/19/20 09/20/20 Natasha Cerrato RN [address] [place] [address] [email or web address] iCMP Ware Cleaner 08/14/20 08/31/20 Shanda Wilkinson MD [address] [place] [phone] Insurance Assigned Provider 09/20/20 11/16/20 Regulo Lundberg MD [address] [place] [address] [email or web address] Insurance Assigned Provider 11/16/20 04/18/22 Shanda Wilkinson MD [address] [place] [phone] Insurance Assigned Provider 04/18/22 01/18/23 Shanda Wilkinson MD [address] [place] [address] 36612 Insurance Assigned Provider 04/18/22 02/19/23 documented as of this encounter Additional Source Comments The information contained in this document represents components of the legal health record. It is not the complete legal health record.[facility]
--- OUTSIDE RECORDS SUMMARY | 2025-03-14 09:30 | XMS_ITS | Encounter Summary ---
Author Organization [facility] Address [address] [facility] [address] [place] [address] Phone Care Team Providers Care Stem Assembler Name Role Phone Edmund Cope MD Unavailable [phone] Shannon Garcia NP Primary Care Provid er Regulo Lundberg MD Unavailable Carey Boyd Primary Care Provider [phone] Natasha Cerrato RN Unavailable Shanda Wilkinson MD Unavailable Regulo Lundberg MD Unavailable [phone] Shanda Wilkinson MD Unavailable Shanda Wilkinson MD Unavailable [phone] Encounter Details Date Type Department Care Team (Late st Contact Info) Description 02/20/2020 Procedure Pass [facility], Ct Scan - [address] [id number] Social History Tobacco Use Types Packs/Day Years [...] on filedocumented in this encounter Care Teams Stem Assembler Relationship Specialty Start Date End Date Shannon Garcia NP [address] [place] [address] [email or web address] PCP - General Family Medicine 02/15/20 08/12/20 Carey Boyd PA [address] [place] [address] PCP - General Supervisor Fish Bait Processing 08/13/20 Edmund Cope MD [address] [place] [address] Insurance Assigned Provider 09/19/19 04/19/20 Regulo Lundberg MD [address] [place] [address] Insurance Assigned Provider 04/19/20 09/20/20 Natasha Cerrato RN [address] [place] [address] iCMP Technical Project Coordinator 08/14/20 08/31/20 Shanda Wilkinson MD [address] [place] [address] [email or web address] Insurance Assigned Provider 09/20/20 11/16/20 Regulo Lundberg MD [address] [place] [address] [email or web address] Insurance Assigned Provider 11/16/20 04/18/22 Shanda Wilkinson MD [address] [place] [address] [email or web address] Insurance Assigned Provider 04/18/22 01/18/23 Shanda Wilkinson MD [address] [place] [address] [email or web address] Insurance Assigned Provider 04/18/22 02/19/23 documented as of this encounter Additional Source Comments The information contained in this document represents components of the legal health record. It is not the complete legal health record.[facility]
--- OUTSIDE RECORDS SUMMARY | 2025-03-14 09:30 | XMS_ITS | Encounter Summary ---
Author Organization [facility] Address [address] [facility] [address] [place] [address] Phone Care Team Providers Care Painter Rough Name Role Phone Edmund Cope MD Unavailable [phone] Edmund Cope MD Primary Care Provider [phone] Shannon Garcia NP Primary Care Provid er Regulo Lundberg MD Unavailable [phone] Carey Boyd Primary Care Provider [phone] Natasha Cerrato RN Unavailable Shanda Wilkinson MD Unavailable [phone] Regulo Lundberg MD Unavailable [phone] Shanda Wilkinson MD Unavailable [phone] Shanda Wilkinson MD Unavailable [phone] Encounter Details Date Type Department Care Team (Late st Contact Info) Description 01/15/2020 Ancillary Orders [facility],Outside Imaging [address] [place], [place] [id number] System, Provider Not In, [facility] [address] [address] Social History Tobacco Use Types Packs/Day Years [...] on filedocumented in this encounter Care Teams Painter Rough Relationship Specialty Start Date End Date Edmund Cope MD [address] [place] [address] [email or web address] PCP - General Internal Medicine 01/08/20 02/14/20 Shannon Garcia NP [address] [place] [address] [email or web address] PCP - General Family Medicine 02/15/20 08/12/20 Carey Boyd PA [address] [place] [address] PCP - General Laboratory Apparatus Glass Grinder 08/13/20 Edmund Cope MD [address] [place] [address] [email or web address] Insurance Assigned Provider 09/19/19 04/19/20 Regulo Lundberg MD [address] [place] [address] [phone] Insurance Assigned Provider 04/19/20 09/20/20 Natasha Cerrato, RN [address] [place] [address] [facility] Sociology Instructor 08/14/20 08/31/20 Shanda Wilkinson MD [address] [place] [address] 00998 Insurance Assigned Provider 09/20/20 11/16/20 Regulo Lundberg MD [address] [place] [address] [phone] Insurance Assigned Provider 11/16/20 04/18/22 Shanda Wilkinson MD [address] [place] [address] 40202 Insurance Assigned Provider 04/18/22 01/18/23 Shanda Wilkinson MD [address] [place] [address] Insurance Assigned Provider 04/18/22 02/19/23 documented as of this encounter Additional Source Comments The information contained in this document represents components of the legal health record. It is not the complete legal health record.[facility]
--- OUTSIDE RECORDS SUMMARY | 2025-03-14 09:30 | XMS_ITS | Encounter Summary ---
Author Organization [facility] Address [address] [place] [address] Phone Care Team Providers Care Sheriffs Detective Name Role Phone Regulo Lundberg MD Unavailable Carey Boyd Primary Care Provider [phone] Natasha Cerrato RN Unavailable Shanda Wilkinson MD Unavailable Regulo Lundberg MD Unavailable [phone] Shanda Wilkinson MD Unavailable [phone] Shanda Wilkinson MD Unavailable [phone] Encounter Details Date Type Department Care Team (Late st Contact Info) Description 08/18/2020 Procedure Pass [facility] [address] [facility], [address] [place] [address] Social History Tobacco Use Types [...] on filedocumented in this encounter Care Teams Sheriffs Detective Relationship Specialty Start Date End Date Carey Boyd PA [address] [place] [address] PCP - General Family Medicine Physician 08/13/20 Regulo Lundberg MD [address] [place] [address] [email or web address] Insurance Assigned Provider 04/19/20 09/20/20 Natasha Cerrato RN [address] [place] [address] [email or web address] iCMP Ambulette Driver 08/14/20 08/31/20 Shanda Wilkinson MD [address] [place] [address] Insurance Assigned Provider 09/20/20 11/16/20 Regulo Lundberg MD [address] [place] [address] [email or web address] Insurance Assigned Provider 11/16/20 04/18/22 Shanda Wilkinson MD [address] [place] [address] Insurance Assigned Provider 04/18/22 01/18/23 Shanda Wilkinson MD [address] [place] [address] [email or web address] Insurance Assigned Provider 04/18/22 02/19/23 documented as of this encounter Additional Source Comments The information contained in this document represents components of the legal health record. It is not the complete legal health record.[facility]
--- OUTSIDE RECORDS SUMMARY | 2025-03-14 09:30 | XMS_ITS | Encounter Summary ---
Author Organization [facility] Address [address] [employer] [facility] [address] [place] [address] Phone Care Team Providers Care Senior Training And Development Rep Name Role Phone Regulo Lundberg MD Unavailable Carey Boyd Primary Care Provider [phone] Natasha Cerrato RN Unavailable Shanda Wilkinson MD Unavailable Regulo Lundberg MD Unavailable Shanda Wilkinson MD Unavailable [phone] Shanda Wilkinson MD Unavailable [phone] Encounter Details Date Type Department Care Team (Late st Contact Info) Description 08/25/2020 Procedure Pass [facility] [address] [place] [address] Social History Tobacco Use Types [...] filedocumented in this encounter Care Teams Senior Training And Development Rep Relationship Specialty Start Date End Date Carey oByd PA [address] [place] [phone] PCP - General Time Clock Inspector 08/13/20 Regulo Lundberg MD [address] [place] [address] [email or web address] Insurance Assigned Provider 04/19/20 09/20/20 Natasha Cerrato RN [address] [place] [address] [email or web address] [facility] Food And Beverage Operations Manager 08/14/20 08/31/20 Shanda Wilkinson MD [address] [place] [address] [email or web address] Insurance Assigned Provider 09/20/20 11/16/20 Regulo Lundberg MD [address] [place] [address] [email or web address] Insurance Assigned Provider 11/16/20 04/18/22 Shanda Wilkinson MD [address] [place] [address] [email or web address] Insurance Assigned Provider 04/18/22 01/18/23 Shanda Wilkinson MD [address] [place] [address] [email or web address] Insurance Assigned Provider 04/18/22 02/19/23 documented as of this encounter Additional Source Comments The information contained in this document represents components of the legal health record. It is not the complete legal health record.[facility]
--- OUTSIDE RECORDS SUMMARY | 2025-03-14 09:30 | XMS_ITS | Encounter Summary ---
Author Organization [facility] Address [address] [facility] [address] [place] [address] Phone Care Team Providers Care Kiln Stoker Name Role Phone Edmund Cope MD Primary [...] MD Unavailable + Shanda Wilkinson MD Unavailable [phone] Encounter Details Date Type Department Care Team (Latest Contact Info) Description 10/25/2019 Transcribe Orders [facility] [address] [place], [place] [id number] Dalton Leone, [address] [place] [address] [email or web address] Screening for unspecified condition (Primary Dx) Social [...] Primary documented in this encounter Care Teams Kiln Stoker Relationship Specialty Start Date End Date Edmund Cope MD [email or web address] PCP - General Internal Medicine 05/16/17 01/07/20 Edmund Cope MD [email or web address] PCP - General Internal Medicine 01/08/20 02/14/20 Shannon Garcia NP [address] [place] [address] [email or web address] PCP - General Family Medicine 02/15/20 08/12/20 Carey Boyd PA [address] [place] [address] PCP - General Emblem Maker 08/13/20 Edmund Cope MD [address] [place] [address] [email or web address] Insurance Assigned Provider 09/19/19 04/19/20 Regulo Lundberg MD [address] [place] [address] [email or web address] Insurance Assigned Provider 04/19/20 09/20/20 Natasha Cerrato, RN [address] [place] [address] [email or web address] Endband Cutter Hand 08/14/20 08/31/20 Shanda Wilkinson MD [address] [place] [address] Insurance Assigned Provider 09/20/20 11/16/20 Regulo Lundberg MD [address] [place] [address] [email or web address] Insurance Assigned Provider 11/16/20 04/18/22 Shanda Wilkinson MD [address] [place] [address] 28035 Insurance Assigned Provider 04/18/22 01/18/23 Shanda Wilkinson MD [address] [place] [address]178 Insurance Assigned Provider 04/18/22 02/19/23 documented as of this encounter Additional Source Comments The information contained in this document represents components of the legal health record. It is not the complete legal health record.[facility]
--- OUTSIDE RECORDS SUMMARY | 2025-03-14 09:30 | XMS_ITS | Clinical Summary ---
Author Organization [facility] Address [address] [facility] [address] [place] [address] Phone Care Team Providers Care Baseball Player Name Role Phone Carey Boyd Primary Care Provider [phone]- [phone] Allergies Active Allergy Reactions Criticality Noted Date [...] this topic Medical Devices Implanted Type Area Labor/Excavator Device Identifier Shelf Expiration Date Model / Serial / Lot Durand Suture 2 2.3mm 2strand Force Fiber Iconix Intellibraid -Order In Multiples Of 5 - [id number] Implanted:Qty: 3 on 07/07/2017 by Vernon Moses DO at [facility] [employer] Right: Shoulder [employer] 11/11/2018 [id number] / / [id number] Screw Bone 3.5x14mm Cortex Self Tapping Fully Threaded Hex Head Ss - [id number] Implanted:Qty: 1 on 11/20/2019 by Guillermo Pineda MD at [facility] Left: Ankle SYNTHES 204.814 / / AUTO#3 LOAD #1 Bone Plate 141x3.5mm 12 Hole Tubular One Third With Collar Lcp Ss - [id number] Implanted:Qty: 1 on 11/20/2019 by Guillermo Pineda MD at [facility] Left: Ankle SYNTHES 241.421 / / AUTO#3 LOAD #1 Screw Bone 2.7x18mm Cortical Self Tapping Fully Threaded Hex Head Ss Bx/1ea - [id number] Implanted:Qty: 1 on 11/20/2019 by Guillermo Pineda MD at [facility] Left: Ankle SYNTHES 202.818 / / AUTO#3 LOAD #1 Screw Bone 2.7x20mm Cortical Self Tapping Fully Threaded Hex Head Ss - [id number] Implanted:Qty: 1 on 11/20/2019 by [place]ermo [place]ined[place] [facility] [place]: Ankle SYNTHES 202.820 / / AUTO#3 LOAD #1 Screw Bone 12x3.5mm Compression Ss Locking Self Tapping Full Thread T15 Stardrive Recess - [id number] Implanted:Qty: 1 on 11/20/2019 by Guillermo Pineda MD at [facility] Left: Ankle SYNTHES 212.102 / / AUTO#3 LOAD #1 Screw Bone 3.5x12mm Cortex Self Tapping Fully Threaded Hex Head Ss - [id number] Implanted:Qty: 2 on 11/20/2019 by Guillermo Pineda [place] [facility] Left: Ankle SYNTHES 204.812 / / AUTO#3 LOAD #1 Screw Bone 3.5x45mm Cortex Self Tapping Fully Threaded Hex Head Ss - [id number] Implanted:Qty: 1 on 11/20/2019 by Guillermo Pineda MD [place] [facility] Left: Ankle SYNTHES 204.845 / / AUTO#3 LOAD #1 Screw Bone 3.5x50mm Cortex Ss Self Tapping Hexagonal Socket - [id number] Implanted:Qty: 2 on 11/20/2019 by Guillermo Pineda [place] [facility] Left: Ankle SYNTHES 204.850 / / AUTO#3 LOAD #1 Washer Bone 7.0mm Sm Screw Cannulated Ss - Ssterilizer 4, Load 3: Sterilized 2020 Implanted:Qty: 2 on 08/25/2020 by Guillermo Pineda MD [place] [facility] [place]: Foot SYNTHES 219.98 / STERILIZER 4, LOAD 3: STERILIZED 2020 / Screw Bone 30x3.5mm Cannulated Ss Full Thread Hexagonal Socket Flat Head - Discontinued Per Supplier - Ssterilizer 4, Load 3: Sterilized 2020 Implanted:Qty: 1 on 08/25/2020 by Guillermo Pineda MD at [facility] STANDARD Left: Foot SYNTHES 205.230 / STERILIZER 4, LOAD 3: STERILIZED 2020 / Durand Suture 4.5mm Arthroscopy Reelx Stt Peek Stainless Steel Core Knotless Sharp Tip Expandable Sterile Bx/5ea - [id number] Implanted:Qty: 1 on 07/07/2017 by Vernon Moses DO at [facility] Right: Shoulder [employer] 05/24/2019 [id number] / / [id number] Graft Bone 1.00ml Biocartilage Synthetic Matrix [place] Extracellular Filler Syringe - [id number] Implanted:Qty: 1 on 11/20/2019 by Guillermo Pineda MD at [facility] Left: Ankle [employer] [place] 04/11/2024 [id number] / [id number] / Durand Suture 2.9mmx12.5 Pushlock Biocomposite Swivelock Vented Bx/5ea - Must Be Ordered In Multiples Of 5's - [id number] Implanted:Qty: 2 on 11/20/2019 by Guillermo Pineda MD at [facility] Left: Ankle [employer] 09/10/2021 [id number] / / [id number] Kit 1.5cc Graft Bone Augment Synthetic Bioabsorbable - [id number] Implanted:Qty: 1 on 11/20/2019 by Guillermo Pineda MD at [facility] Right: Ankle [employer] 05/12/2021 [id number] / / [id number] Guidewire Pipo 1.65r612yd Non Threaded - Ssterilizer4, Load3: Sterilized Implanted:Qty: 2 on 08/25/2020 by Guillermo Pineda MD at [facility] Left: Foot SYNTHES 900.721 / STERILIZER4, LOAD3: STERILIZED / 3.5mm Cannulated Screws, Fully Threaded Implanted:Qty: 1 on 08/25/2020 by Guillermo Pineda MD at [facility] Left: Foot 205.224 / / Description:Sterilizer # nicole d #3 August 11, 2020 Explanted Type Area Labor/Excavator Device Identifier Shelf Expiration Date Model / Serial / Lot Screw Bone 18x3.5mm Compression Ss Locking Self Tapping Full Thread T15 Stardrive Recess - [id number] Implanted:Qty: 1 by Guillermo Pineda MD Explanted:Qty: 1 on 11/20/2019 by Guillermo Pineda MD at [facility] Left: Ankle SYNTHES 212.105 / / AUTO#3 LOAD #1 Screw Bone 3.5x14mm Cortex Self Tapping Fully Threaded Hex Head Ss - [id number] Implanted:Qty: 1 Explanted:Qty: 1 on 11[place]20/[place] [facility] [place]: Ankle SYNTHES 204.814 / / AUTO#3 LOAD #1 Procedures Procedure Name Priority Date/Time Associated Diagnosis Comments PAP TEST Routine 11/16/2023 12:00 AM EDT from Last 3 Months or Most Recently Relevant to Health Maintenance Results * Pap Test (11/16/2023 12:00 AM EDT) 11/16/2023 11/17/2023 10: 35 AM EDT Narrative SEE NARRATIVE - 11/22/2023 1:06 PM EDT [address] [address] Banana Room Cutter: Jennifer Boyer MD PARTITION SETTER Cytology Report FINAL DIAGNOSIS A. PAP SMEAR (THIN PREP) CE: SPECIMEN ADEQUACY: Satisfactory for evaluation; transformation zone present. INTERPRETATION: NEGATIVE FOR INTRAEPITHELIAL LESION OR MALIGNANCY. This specimen was analyzed by the automated ThinPrep Imaging System (TRiQ.) and the selected mishra were reviewed by a cryptographic technician. Electronically Signed Out By: NICOLE Herndon(ASCP) The [...] 59, 66, 68) Note: Testing performed by [employer] Onclarity HR-HPV analysis. Clinical correlation is advised. This HPV test was performed at [facility], [address] [place] [address]. This test has been FDA approved for both SurePath and ThinPrep cervical cytology specimens. The accuracy and precision of this test for all other specimen sources has been verified in the Cytopathology Laboratory of the [facility] and has not been cleared or approved by the U.S. Food and Drug Administration. Clinical correlation is advised. CLINICAL HISTORY Date of Last Menstrual Period: 11-06-2023 Other Clinical Conditions: Screening Pap SPECIMEN SOURCE A: PAP SMEAR (THIN PREP) CE Patient Name: IVAN WILKINSON : 1990 (Age: 33) Sex: F Institution: [facility] Location: [facility] Date of Collection: 11/16/2023 Date of Reported: 11/22/2023 13:06 Results to: Shannon SCRUGGSP Shannon Garcia [employer]URING [employer]ATE CYTOLOGY ORDERABLES Final Result SEE NARRATIVE from Last 3 Months or Most Recently Relevant to Health Maintenance [place] [address] [place] [address] [place] [address] [place] [address] [place] [address] [place] [address] [place] [address] [place] [address] [place] [id number] Advance Directives For more information, please contact: [phone] (9AM - 5PM Sandra/[facility], Tuesday-Tuesday) * Full Code (Presumed) (Latest Code Status on File) Date Activated Date Inactivated Comments 07/07/2017 8:30 AM 07/07/2017 3:58 PM Care Teams Baseball Player Relationship Specialty Start Date End Date Carey Boyd PA [address] [place] [address] PCP - General Health Editor 08/13/20 Additional Source Comments The information contained in this document represents components of the legal health record. It is not the complete legal health record.[facility]
--- OUTSIDE RECORDS SUMMARY | 2025-03-14 09:30 | XMS_ITS | Encounter Summary ---
Author Organization [facility] Address [address] [facility] [address] [place] [address] Phone Care Team Providers Care Foreign Legal Consultant Name Role Phone Regulo Lundberg MD Unavailable [phone] Carey Boyd Primary Care Provider [phone] Shanda Wilkinson MD Unavailable Regulo Lundberg MD Unavailable Shanda Wilkinson MD Unavailable Shanda Wilkinson MD Unavailable Reason for Referral * Physical Therapy (Urgent) - Closed Specialty Diagnoses / Procedures Referred By Meche yuan Referred To Contact Physical Therapy Diagnoses Encounter for rehabilitation Left Ankle Procedures Evalaute & Treat Guillermo Pineda MD Phone: tel: fax: [email or web address] [address] [place] [address] Phone: tel: Referral ID Status Reason Start Date Expiration Date Visits Re quested Visits Authorized [id number] Closed 09/08/2020 12/04/2020 17 17 Encounter Details Date Type Department Care Team (Latest Contact Info) Description 09/08/2020 Transcribe Orders [facility] [address] [place] [address] Guillermo Pineda MD [address] [place] [phone] [email or web address] Encounter for rehabilitation (Primary Dx) [...] Diagnoses Orde r Schedule Ambulatory referral to [facility] Physical Therapy Outpatient Referral Routine Encounter for rehabilitation Ordered: 09/08/2020 documented as of this encounter Visit Diagnoses Diagnosis Encounter for rehabilitation- Primary documented in this encounter Care Teams Foreign Legal Consultant Relationship Specialty Start Date End Date Carey Boyd PA [address] [place] [address] PCP - General Building Mover 08/13/20 Regulo Lundberg MD [address] [place] [address] Insurance Assigned Provider 04/19/20 09/20/20 Shanda Wilkinson MD [address] [place] [address] [email or web address] Insurance Assigned Provider 09/20/20 11/16/20 Regulo Lundberg MD [address] [place] [address] [email or web address] Insurance Assigned Provider 11/16/20 04/18/22 Shanda Wilkinson MD [address] [place] [address] [email or web address] Insurance Assigned Provider 04/18/22 01/18/23 Shanda Wilkinson MD [address] [place] [address] [email or web address] Insurance Assigned Provider 04/18/22 02/19/23 documented as of this encounter Additional Source Comments The information contained in this document represents components of the legal health record. It is not the complete legal health record.[facility]
--- OUTSIDE RECORDS SUMMARY | 2025-03-14 09:30 | XMS_ITS | Encounter Summary ---
Author Organization [facility] Address [address] [facility] [address] [place] [address] Phone Care Team Providers Care Manager Flight Name Role Phone Shannon Garcia NP Primary Care Provid er Regulo Lundberg MD Unavailable Carey Boyd Primary Care Provider [phone] Natasha Cerrato RN Unavailable Shanda Wilkinson MD Unavailable Regulo Lundberg MD Unavailable [phone] Shanda Wilkinson MD Unavailable [phone] Shanda Wilkinson MD Unavailable [phone] Encounter Details Date Type Department Care Team (Late st Contact Info) Description 05/28/2020 Procedure Pass [facility] [address] [place], [place] [id number] Social History Tobacco Use Types Packs/Day Years [...] on filedocumented in this encounter Care Teams Manager Flight Relationship Specialty Start Date End Date Shannon Garcia NP [address] [place] [address] [email or web address] PCP - General Family Medicine 02/15/20 08/12/20 Carey Boyd PA [address] [place] [address] PCP - General Quality Compliance Manager 08/13/20 Regulo Lundberg MD [address] [place] [address] Insurance Assigned Provider 04/19/20 09/20/20 Natasha Cerrato, FRITZ [address] [place] [address] [email or web address] Forwarder Operator 08/14/20 08/31/20 Shanda Wilkinson MD [address] [place] [address] Insurance Assigned Provider 09/20/20 11/16/20 Regulo Lundberg MD [address] [place] [address] Insurance Assigned Provider 11/16/20 04/18/22 Shanda Wilkinson MD [address] [place] [address] [email or web address] Insurance Assigned Provider 04/18/22 01/18/23 Shanda Wilkinson MD [address] [place] [address] [email or web address] Insurance Assigned Provider 04/18/22 02/19/23 documented as of this encounter Additional Source Comments The information contained in this document represents components of the legal health record. It is not the complete legal health record.[facility]
--- OUTSIDE RECORDS SUMMARY | 2025-03-14 09:30 | XMS_ITS | Encounter Summary ---
Author Organization [facility] Address [address] [facility] [address] [place] [address] Phone Care Team Providers Care Smoke Jumper Name Role Phone Carey Boyd Primary Care Provider + [phone] Regulo Lundberg MD Unavailable [phone] Shanda Wilkinson MD Unavailable [phone] Shanda Wilkinson MD Unavailable [phone] Encounter Details Date Type Department Care Team (Late st Contact Info) Description 10/29/2021 Procedure Pass [facility], [address] [address] Social History Tobacco Use Types Packs/Day Years [...] on filedocumented in this encounter Care Teams Smoke Jumper Relationship Specialty Start Date End Date Carey Boyd PA [address] [place] [address] PCP - General Cooker Meal 08/13/20 Regulo Lundberg MD [address] [place] [address] [email or web address] Insurance Assigned Provider 11/16/20 04/18/22 Shanda Wilkinson MD [address] [place] [address] Insurance Assigned Provider 04/18/22 01/18/23 Shanda Wilkinson MD [address] [place] [address] Insurance Assigned Provider 04/18/22 02/19/23 documented as of this encounter Additional Source Comments The information contained in this document represents components of the legal health record. It is not the complete legal health record.[facility]
--- OUTSIDE RECORDS SUMMARY | 2025-03-14 09:30 | XMS_ITS | Encounter Summary ---
Author Organization [facility] Address [address] [facility] [address] [place] [address] Phone Care Team Providers Care Inspecting And Testing Lead Hand Name Role Phone Edmund Cope MD Primary [...] MD Unavailable + Shanda Wilkinson MD Unavailable [phone] Reason for Referral * Physical Therapy (Routine) - Closed Specialty Diagnoses / Procedures Referred By Meche yuan Referred To Contact Physical Therapy Diagnoses Encounter for rehabilitation Left Ankle Procedures Evaluate & Treat Guillermo Pineda MD Phone: tel: fax: [email or web address] [email or web address] [address] [place] [address] Phone: tel: Referral ID Status Reason Start Date Expiration Date Visits Re quested Visits Authorized [id number] Closed 12/06/2019 06/12/2020 20 20 Encounter Details Date Type Department Care Team (Latest Contact Info) Description 12/06/2019 Transcribe Orders [facility] [address] [place] [address] Guillermo Pineda MD [address] [place] [address] [email or web address] Encounter for rehabilitation (Primary Dx) [...] Diagnoses Orde r Schedule Ambulatory referral to [facility] Physical Therapy Outpatient Referral Routine Encounter for rehabilitation Ordered: 12/06/2019 documented as of this encounter Visit Diagnoses Diagnosis Encounter for rehabilitation- Primary documented in this encounter Care Teams Inspecting And Testing Lead Hand Relationship Specialty Start Date End Date Edmund Cope MD PCP - General Internal Medicine 05/16/17 01/07/20 Edmund Cope MD PCP - General Internal Medicine 01/08/20 02/14/20 Shannon Garcia NP [address] [place] [phone] [email or web address] PCP - General Family Medicine 02/15/20 08/12/20 Carey Boyd PA [address] [place] [address] PCP - General Clutch Specialist 08/13/20 Edmund Cope MD [address] [place] [address] [email or web address] Insurance Assigned Provider 09/19/19 04/19/20 Regulo Lundberg MD [address] [place] [address] Insurance Assigned Provider 04/19/20 09/20/20 Natasha Cerrato, FRITZ [address] [place] [address] [email or web address] Saw Driver 08/14/20 08/31/20 Shanda Wilkinson MD [address] [place] [phone] Insurance Assigned Provider 09/20/20 11/16/20 Regulo Lundberg MD [address] [place] [address] Insurance Assigned Provider 11/16/20 04/18/22 Shanda Wilkinson MD [address] [place] [address] [email or web address] Insurance Assigned Provider 04/18/22 01/18/23 Shanda Wilkinson MD [address] [place] [address] [email or web address] Insurance Assigned Provider 04/18/22 02/19/23 documented as of this encounter Additional Source Comments The information contained in this document represents components of the legal health record. It is not the complete legal health record.[facility]
--- OUTSIDE RECORDS SUMMARY | 2025-03-14 09:30 | XMS_ITS | Encounter Summary ---
Author Organization [facility] Address [address] [facility] [address] [place] [address] Phone Care Team Providers Care University Manager Name Role Phone Shannon Garcia NP Primary Care Provid er Regulo Lundberg MD Unavailable [phone] Carey Boyd Primary Care Provider [phone] Natasha Cerrato RN Unavailable Shanda Wilkinson MD Unavailable Regulo Lundberg MD Unavailable Shanda Wilkinson MD Unavailable [phone] Shanda Wilkinson MD Unavailable [phone] Encounter Details Date Type Department Care Team (Late st Contact Info) Description 07/30/2020 Procedure Pass [facility] Cardiology [address] [facility], [address] [place] [address] Social History Tobacco Use Types [...] on filedocumented in this encounter Care Teams University Manager Relationship Specialty Start Date End Date Shannon Garcia NP [address] [place] [address] [email or web address] PCP - General Family Medicine 02/15/20 08/12/20 Carey Boyd PA [address] [place] [address] PCP - General Mirror Specialist 08/13/20 Regulo Lundberg MD [address] [place] [phone] Insurance Assigned Provider 04/19/20 09/20/20 Natasha Cerrato, FRITZ [address] [place] [address] iCMP Search Marketing Coordinator 08/14/20 08/31/20 Shanda Wilkinson MD [address] [place] [phone] Insurance Assigned Provider 09/20/20 11/16/20 Regulo Lundberg MD [address] [place] [phone] Insurance Assigned Provider 11/16/20 04/18/22 Shanda Wilkinson MD [address] [place] [address] [email or web address] Insurance Assigned Provider 04/18/22 01/18/23 Shanda Wilkinson MD [address] [place] [address] [email or web address] Insurance Assigned Provider 04/18/22 02/19/23 documented as of this encounter Additional Source Comments The information contained in this document represents components of the legal health record. It is not the complete legal health record.[facility]
--- OUTSIDE RECORDS SUMMARY | 2025-03-14 09:31 | XMS_ITS | Encounter Summary ---
Author Organization [facility] Address [address] [facility] [address] [place] [address] Phone Care Team Providers Care Emergency Medical Dispatcher Name Role Phone Carey Boyd Primary Care Provider [phone] Shanda Wilkinson MD Unavailable [phone] Encounter Details Date Type Department Care Team (Late st Contact Info) Description 01/24/2023 Procedure Pass [address] [place] [address] Social History Tobacco Use Types Packs/Day Years [...] on filedocumented in this encounter Care Teams Emergency Medical Dispatcher Relationship Specialty Start Date End Date Carey Boyd PA [address] [place] [address] PCP - General Product Development Technician 08/13/20 Shanda Wilkinson MD [address] [place] [address] [email or web address] Insurance Assigned Provider 04/18/22 02/19/23 documented as of this encounter Additional Source Comments The information contained in this document represents components of the legal health record. It is not the complete legal health record.[facility]
--- OUTSIDE RECORDS SUMMARY | 2025-03-14 09:31 | XMS_ITS | Encounter Summary ---
Author Organization [facility] Address [address] [facility] [address] [place] [address] Phone Care Team Providers Care Yarn Tester Name Role Phone Edmund Cope MD Primary [...] MD Unavailable + Shanda Wilkinson MD Unavailable [phone] Encounter Details Date Type Department Care Team (Late st Contact Info) Description 07/07/2017 Procedure Pass OR Admitting Dept - Virtual Department 30 [place], [place] [id number] Social History Tobacco Use Types Packs/Day Years [...] on filedocumented in this encounter Care Teams Yarn Tester Relationship Specialty Start Date End Date Edmund Cope MD [email or web address] PCP - General Internal Medicine 05/16/17 01/07/20 Edmund Cope MD [email or web address] PCP - General Internal Medicine 01/08/20 02/14/20 Shannon Garcia NP [address] [place] [address] [email or web address] PCP - General Family Medicine 02/15/20 08/12/20 Carey Boyd PA [address] [place] [address] PCP - General Hospice Nurse Practitioner 08/13/20 Edmund Cope MD [address] [place] [address] [email or web address] Insurance Assigned Provider 10/14/18 03/24/19 Edmund Cope MD [address] [place] [address] [email or web address] Insurance Assigned Provider 09/19/19 04/19/20 Regulo Lundberg MD [address] [place] [address] [email or web address] Insurance Assigned Provider 04/19/20 09/20/20 Natasha Cerrato RN [address] [place] [address] [email or web address] Chucking Machine Operator 08/14/20 08/31/20 Shanda Wilkinson MD [address] [place] [address] [email or web address] Insurance Assigned Provider 09/20/20 11/16/20 Regulo Lundberg MD [address] [place] [address] [email or web address] Insurance Assigned Provider 11/16/20 04/18/22 Shanda Wilkinson MD [address] [place] [address] [email or web address] Insurance Assigned Provider 04/18/22 01/18/23 Shanda Wilkinson MD [address] [place] [address] [email or web address] Insurance Assigned Provider 04/18/22 02/19/23 documented as of this encounter Additional Source Comments The information contained in this document represents components of the legal health record. It is not the complete legal health record.[facility]
--- OUTSIDE RECORDS SUMMARY | 2025-03-14 09:31 | XMS_ITS | Encounter Summary ---
Author Organization [facility] Address [address] [facility] [address] [place] [address] Phone Care Team Providers Care Ground Services Instructor Name Role Phone Edmund Cope MD Primary [...] Description 01/24/2018 Transcribe Orders Virtual Department 30 [place] [address] Guillermo Villar MD [address] [place] [address] [email or web address] Elbow pain, left (Primary Dx) Social History [...] arm documented in this encounter Care Teams Ground Services Instructor Relationship Specialty Start Date End Date Edmund Cope MD [email or web address] PCP - General Internal Medicine 05/16/17 01/07/20 Edmund Cope MD [email or web address] PCP - General Internal Medicine 01/08/20 02/14/20 Shannon Garcia NP [address] [place] [address] [email or web address] PCP - General Family Medicine 02/15/20 08/12/20 Carey Boyd PA [address] [place] [address] PCP - General Commercial Or Institutional Cleaner 08/13/20 Edmund Cope MD [address] [place] [address] [email or web address] Insurance Assigned Provider 10/14/18 03/24/19 Edmund Cope MD [address] [place] [address] [email or web address] Insurance Assigned Provider 09/19/19 04/19/20 Regulo Lundberg MD [address] [place] [address] [email or web address] Insurance Assigned Provider 04/19/20 09/20/20 Natasha Cerrato RN [address] [place] [address] [email or web address] Senior Technical Support Engineer 08/14/20 08/31/20 Shanda Wilkinson MD [address] [place] [address] [email or web address] Insurance Assigned Provider 09/20/20 11/16/20 Regulo Lundberg MD [address] [place] [address] [email or web address] Insurance Assigned Provider 11/16/20 04/18/22 Shanda Wilkinson MD [address] [place] [address] [email or web address] Insurance Assigned Provider 04/18/22 01/18/23 Shanda Wilkinson MD [address] [place] [address] [email or web address] Insurance Assigned Provider 04/18/22 02/19/23 documented as of this encounter Additional Source Comments The information contained in this document represents components of the legal health record. It is not the complete legal health record.[facility]
--- OUTSIDE RECORDS SUMMARY | 2025-03-14 09:31 | XMS_ITS | Encounter Summary ---
Author Organization [facility] Address [address] [facility] [address] [place] [address] Phone Care Team Providers Care Headend Technician Name Role Phone Carey Boyd Primary Care Provider Regulo Lundberg MD Unavailable [phone] Shanda Wilkinson MD Unavailable [phone] Shanda Wilkinson MD Unavailable [phone] Reason for Referral * Physical Therapy (Routine) - Closed Specialty Diagnoses / Procedures Referred By Meche t Referred To Contact Physical Therapy Diagnoses Encounter for rehabilitation Shannon Garcia NP [address] [place] [address] Phone: tel: fax: [email or web address] [address] [place] [address] Phone: tel: Referral ID Status Reason Start Date Expiration Date Visits Re quested Visits Authorized [id number] Closed 02/13/2021 02/13/2022 1 1 Encounter Details Date Type Department Care Team (Latest Contact Info) Description 02/13/2021 Transcribe Orders [facility] [address] [place] [address] Shannon Garcia NP [address] [place] [address] [place] [phone] [email or web address] Encounter for rehabilitation (Primary Dx) Social History [...] Diagnoses Orde r Schedule Ambulatory referral to [facility] Physical Therapy Outpatient Referral Routine Encounter for rehabilitation Ordered: 02/13/2021 documented as of this encounter Visit Diagnoses Diagnosis Encounter for rehabilitation- Primary documented in this encounter Care Teams Headend Technician Relationship Specialty Start Date End Date Carey Boyd PA [address] [place] [address] PCP - General Glass Artist 08/13/20 Regulo Lundberg MD [address] [place] [address] Insurance Assigned Provider 11/16/20 04/18/22 Shanda Wilkinson MD [address] [place] [address] Insurance Assigned Provider 04/18/22 01/18/23 Shanda Wilkinson MD [address] [place] [address] [email or web address] Insurance Assigned Provider 04/18/22 02/19/23 documented as of this encounter Additional Source Comments The information contained in this document represents components of the legal health record. It is not the complete legal health record.[facility]
--- OUTSIDE RECORDS SUMMARY | 2025-03-14 09:31 | XMS_ITS | Encounter Summary ---
Author Organization [facility] Address [address] [address] [place] [address] Phone Care Team Providers Care Home Mission Worker Name Role Phone Carey Boyd Primary Care Provider + [phone] Regulo Lundberg MD Unavailable [phone] Shanda Wilkinson MD Unavailable [phone] Shanda Wilkinson MD Unavailable [phone] Encounter Details Date Type Department Care Team (Late st Contact Info) Description 01/27/2021 Procedure Pass [facility] [address] [place] [address] Social History Tobacco Use Types [...] on filedocumented in this encounter Care Teams Home Mission Worker Relationship Specialty Start Date End Date Carey Boyd PA [address] [place] [address] PCP - General Internal Grinder 08/13/20 Regulo Lundberg MD [address] [place] [address] [email or web address] Insurance Assigned Provider 11/16/20 04/18/22 Shanda Wilkinson MD [address] [place] [address] Insurance Assigned Provider 04/18/22 01/18/23 Shanda Wilkinson MD [address] [place] [address] Insurance Assigned Provider 04/18/22 02/19/23 documented as of this encounter Additional Source Comments The information contained in this document represents components of the legal health record. It is not the complete legal health record.[facility]
--- OUTSIDE RECORDS SUMMARY | 2025-03-14 09:31 | XMS_ITS | Encounter Summary ---
Author Organization [facility] Address [address] [facility] [address] [place] [address] Phone Care Team Providers Care Oyster Sorter Name Role Phone Edmund Cope MD Primary [...] MD Unavailable + Shanda Wilkinson MD Unavailable [phone] Encounter Details Date Type Department Care Team (Late st Contact Info) Description 08/09/2018 Ancillary Orders Virtual Department 30 [place], [place] [phone] Aniya Jimenez MD [address] [facility] [address] [place] [address] Abnormal involuntary movement Social History Tobacco Use [...] Modality EEG Narrative 08/14/2018 3:34 PM EST [facility] ELECTROENCEPHALOGRAPHY (EEG) LAB INTRODUCTION: The patient is [...] persistent focal asymmetries occurred. MD Sameer Ber[facility] Aniya Jimenez MD NEUROLOGY ORDERABLES Fi nal Result documented in this encounter Visit Diagnoses Diagnosis Abnormal involuntary movement Abnormal involuntary movements Abnormal involuntary movement Abnormal involuntary movements documented in this encounter Care Teams Oyster Sorter Relationship Specialty Start Date End Date Edmund Cope MD [email or web address] PCP - General Internal Medicine 05/16/17 01/07/20 Edmund Cope MD [email or web address] PCP - General Internal Medicine 01/08/20 02/14/20 Shannon Garcia NP [address] [place] [address] [email or web address] PCP - General Family Medicine 02/15/20 08/12/20 Carey Boyd PA [address] [place] [address] PCP - General Roll Icer 08/13/20 Edmund Cope MD [address] [place] [address] [email or web address] Insurance Assigned Provider 10/14/18 03/24/19 Edmund Cope MD [address] [place] [address] [email or web address] Insurance Assigned Provider 09/19/19 04/19/20 Regulo Lundberg MD [address] [place] [address] [email or web address] Insurance Assigned Provider 04/19/20 09/20/20 Natasha Cerrato, RN [address] [place] [address] [email or web address] [facility] Inter Com Installer 08/14/20 08/31/20 Shanda Wilkinson MD [address] [place] [address] [email or web address] Insurance Assigned Provider 09/20/20 11/16/20 Regulo Lundberg MD [address] [place] [address] [email or web address] Insurance Assigned Provider 11/16/20 04/18/22 Shanda Wilkinson MD [address] [place] [address]60 Insurance Assigned Provider 04/18/22 01/18/23 Shanda Wilkinson MD [address] [place] [address] [email or web address] Insurance Assigned Provider 04/18/22 02/19/23 documented as of this encounter Additional Source Comments The information contained in this document represents components of the legal health record. It is not the complete legal health record.[facility]
--- OUTSIDE RECORDS SUMMARY | 2025-03-14 09:31 | XMS_ITS | Encounter Summary ---
Author Organization [facility] Address [address] [facility] [address] [place] [address] Phone Care Team Providers Care Slip Injector And Applicator Name Role Phone Shannon Garcia NP Primary Care Provid er Regulo Lundberg MD Unavailable [phone] Carey Boyd Primary Care Provider [phone] Natasha Cerrato RN Unavailable Shanda Wilkinson MD Unavailable Regulo Lundberg MD Unavailable [phone] Shanda Wilkinson MD Unavailable [phone] Shanda Wilkinson MD Unavailable [phone] Encounter Details Date Type Department Care Team (Late st Contact Info) Description 05/15/2020 Procedure Pass [facility] [address] [place], [place] [phone] Social History Tobacco Use Types Packs/Day Years [...] on filedocumented in this encounter Care Teams Slip Injector And Applicator Relationship Specialty Start Date End Date Shannon Garcia NP [address] [place] [address] [email or web address] PCP - General Family Medicine 02/15/20 08/12/20 Carey Boyd PA [address] [place] [address] PCP - General Stock Chaser 08/13/20 Regulo Lundberg MD [address] [place] [phone] Insurance Assigned Provider 04/19/20 09/20/20 Natasha Cerrato, FRITZ [address] [place] [address] [employer] Spray Maker 08/14/20 08/31/20 Shanda Wilkinson MD [address] [place] [address] Insurance Assigned Provider 09/20/20 11/16/20 Regulo Lundberg MD [address] [place] [address] [email or web address] Insurance Assigned Provider 11/16/20 04/18/22 Shanda Wilkinson MD [address] [place] [address] [email or web address] Insurance Assigned Provider 04/18/22 01/18/23 Shanda Wilkinson MD [address] [place] [address] [email or web address] Insurance Assigned Provider 04/18/22 02/19/23 documented as of this encounter Additional Source Comments The information contained in this document represents components of the legal health record. It is not the complete legal health record.[facility]
--- OUTSIDE RECORDS SUMMARY | 2025-03-14 09:31 | XMS_ITS | Encounter Summary ---
Author Organization [facility] Address [address] [employer] [facility] [address] [place] [address] Phone Care Team Providers Care Ophthalmic Tech Name Role Phone Carey Boyd Primary Care Provider + [phone] Regulo Lundberg MD Unavailable [phone] Shanda Wilkinson MD Unavailable [phone] Shanda Wilkinson MD Unavailable [phone] Encounter Details Date Type Department Care Team (Late st Contact Info) Description 12/08/2021 Procedure Pass [facility] Imaging, [place] [address] [place] [address] Social History Tobacco Use Types Packs/Day Years [...] on filedocumented in this encounter Care Teams Ophthalmic Tech Relationship Specialty Start Date End Date Carey Boyd PA [address] [place] [address] PCP - General Quill Reamer 08/13/20 Regulo Lundberg MD [address] [place] [address] [email or web address] Insurance Assigned Provider 11/16/20 04/18/22 Shanda Wilkinson MD [address] [place] [address] Insurance Assigned Provider 04/18/22 01/18/23 Shanda Wilkinson MD [address] [place] [address] Insurance Assigned Provider 04/18/22 02/19/23 documented as of this encounter Additional Source Comments The information contained in this document represents components of the legal health record. It is not the complete legal health record.[facility]
--- OUTSIDE RECORDS SUMMARY | 2025-03-14 09:31 | XMS_ITS | Encounter Summary ---
Author Organization [facility] Address [address] [facility] [address] [place] [address] Phone Care Team Providers Care Assistant City Attorney Name Role Phone Carey Boyd Primary Care Provider + [phone] Regulo Lundberg MD Unavailable [phone] Shanda Wilkinson MD Unavailable [phone] Shanda Wilkinson MD Unavailable [phone] Encounter Details Date Type Department Care Team (Late st Contact Info) Description 01/19/2022 Procedure Pass [facility], [address] [address] Social History Tobacco Use Types Packs/Day Years [...] on filedocumented in this encounter Care Teams Assistant City Attorney Relationship Specialty Start Date End Date Carey Boyd PA [address] [place] [address] PCP - General Mobile Application Developer 08/13/20 Regulo Lundberg MD [address] [place] [address] [email or web address] Insurance Assigned Provider 11/16/20 04/18/22 Shanda Wilkinson MD [address] [place] [address] Insurance Assigned Provider 04/18/22 01/18/23 Shanda Wilkinson MD [address] [place] [address] Insurance Assigned Provider 04/18/22 02/19/23 documented as of this encounter Additional Source Comments The information contained in this document represents components of the legal health record. It is not the complete legal health record.[facility]
--- OUTSIDE RECORDS SUMMARY | 2025-03-14 09:31 | XMS_ITS | Encounter Summary ---
Author Organization [facility] Address [address] [facility] [address] [place] [address] Phone Care Team Providers Care Vocational Training Director Name Role Phone Edmund Cope MD Primary [...] MD Unavailable + Shanda Wilkinson MD Unavailable [phone] Encounter Details Date Type Department Care Team (Late st Contact Info) Description 05/13/2017 Procedure Pass [facility], [address] [phone] Social History Tobacco Use Types Packs/Day Years [...] on filedocumented in this encounter Care Teams Vocational Training Director Relationship Specialty Start Date End Date Edmund Cope MD [email or web address] PCP - General Internal Medicine 05/16/17 01/07/20 Edmund Cope MD [email or web address] PCP - General Internal Medicine 01/08/20 02/14/20 Shannon Garcia NP [address] [place] [address] [email or web address] PCP - General Family Medicine 02/15/20 08/12/20 Carey Boyd PA [address] [place] [address] PCP - General Business Planning Analyst 08/13/20 Edmund Cope MD [address] [place] [address] [email or web address] Insurance Assigned Provider 10/14/18 03/24/19 Edmund Cope MD [address] [place] [address] [email or web address] Insurance Assigned Provider 09/19/19 04/19/20 Regulo Lundberg MD [address] [place] [address] [email or web address] Insurance Assigned Provider 04/19/20 09/20/20 Natasha Cerrato, RN [address] [place] [address] [facility] Research Scholar 08/14/20 08/31/20 Shanda Wilkinson MD [address] [place] [address] Insurance Assigned Provider 09/20/20 11/16/20 Regulo Lundberg MD [address] [place] [address] [email or web address] Insurance Assigned Provider 11/16/20 04/18/22 Shanda Wilkinson MD [address] [place] [address] Insurance Assigned Provider 04/18/22 01/18/23 Shanda Wilkinson MD [address] [place] [phone] Insurance Assigned Provider 04/18/22 02/19/23 documented as of this encounter Additional Source Comments The information contained in this document represents components of the legal health record. It is not the complete legal health record.[facility]
--- OUTSIDE RECORDS SUMMARY | 2025-03-14 09:31 | XMS_ITS | Encounter Summary ---
Author Organization [facility] Address [address] [facility] [address] [place] [address] Phone Care Team Providers Care Shovel Engineer Name Role Phone Edmund Cope MD Primary Care Provider + Edmund Cope MD Unavailable [phone] Edmund Cope MD Unavailable [phone] Edmund Cope MD Primary Care Provider + Shannon Garcia NP Primary Care Provid er + Regulo Lundberg MD Unavailable + Carey Boyd Primary Care Provider + Natasha Cerrato RN Unavailable Shanda Wilkinson MD Unavailable + Regulo Lundberg MD Unavailable + Shanda Wilkinson MD Unavailable + Shanda Wilkinson MD Unavailable [phone] Encounter Details Date Type Department Care Team (Late st Contact Info) Description 05/13/2017 Ancillary Orders Virtual Department 30 [place], [place] [phone] Carey Boyd PA [address] [place] [address] [place] [address] Right shoulder pain, unspecified chronicity Social History [...] be due to mild bursitis. POS - [id number] Narrative 05/19/2017 10:31 AM EST HISTORY: Pain, [...] be due to mild bursitis. POS - [id number] Carey Boyd [place] IMG MR EXTREMITY Final Res ult documented in this encounter Visit Diagnoses Diagnosis Right shoulder pain, unspecified chronicity Right shoulder pain, unspecified chronicity documented in this encounter Care Teams Shovel Engineer Relationship Specialty Start Date End Date Edmund Cope MD PCP - General Internal Medicine 05/16/17 01/07/20 Edmund Cope MD PCP - General Internal Medicine 01/08/20 02/14/20 Shannon Garcia NP [address] [place] [address] [email or web address] PCP - General Family Medicine 02/15/20 08/12/20 Carey Boyd PA [address] [place] [address] PCP - General Option Trader 08/13/20 Edmund Cope MD [address] [place] [address] Insurance Assigned Provider 10/14/18 03/24/19 Edmund Cope MD [address] [place] [address] Insurance Assigned Provider 09/19/19 04/19/20 Regulo Lundberg MD [address] [place] [address] Insurance Assigned Provider 04/19/20 09/20/20 Natasha Cerrato RN [address] [place] [phone] [employer] Social Services 08/14/20 08/31/20 Shanda Wilkinson MD [address] [place] [address] Insurance Assigned Provider 09/20/20 11/16/20 Regulo Lundberg MD [address] [place] [phone] Insurance Assigned Provider 11/16/20 04/18/22 Shanda Wilkinson MD [address] [place] [address] Insurance Assigned Provider 04/18/22 01/18/23 Shanda Wilkinson MD [address] [place] [address] Insurance Assigned Provider 04/18/22 02/19/23 documented as of this encounter Additional Source Comments The information contained in this document represents components of the legal health record. It is not the complete legal health record.[facility]
--- OUTSIDE RECORDS SUMMARY | 2025-03-14 09:31 | XMS_ITS | Encounter Summary ---
Author Organization [facility] Address [address] [facility] [address] [place] [address] Phone Care Team Providers Care Wildlife Refuge Specialist Name Role Phone Carey Boyd Primary Care Provider Regulo Lundberg MD Unavailable [phone] Shanda Wilkinson MD Unavailable [phone] Shanda Wilkinson MD Unavailable [phone] Encounter Details Date Type Department Care Team (Late st Contact Info) Description 12/08/2021 Procedure Pass [facility] Interventional X-ray Imaging, [place] [address] [place] [address] Social History Tobacco Use Types Packs/Day Years [...] on filedocumented in this encounter Care Teams Wildlife Refuge Specialist Relationship Specialty Start Date End Date Carey Boyd PA [address] [place] [address] PCP - General Accreditation Specialist 08/13/20 Regulo Lundberg MD [address] [place] [address] [email or web address] Insurance Assigned Provider 11/16/20 04/18/22 Shanda Wilkinson MD [address] [place] [phone] Insurance Assigned Provider 04/18/22 01/18/23 Shanda Wilkinson MD [address] [place] [address] Insurance Assigned Provider 04/18/22 02/19/23 documented as of this encounter Additional Source Comments The information contained in this document represents components of the legal health record. It is not the complete legal health record.[facility]
--- OUTSIDE RECORDS SUMMARY | 2025-03-14 09:31 | XMS_ITS | Encounter Summary ---
Author Organization [facility] Address [address] [facility] [address] [place] [address] Phone Care Team Providers Care Reinforcing Rod Layer Name Role Phone Carey Boyd Primary Care Provider + [phone] Regulo Lundberg MD Unavailable [phone] Shanda Wilkinson MD Unavailable [phone] Shanda Wilkinson MD Unavailable [phone] Encounter Details Date Type Department Care Team (Late st Contact Info) Description 01/19/2022 Procedure Pass [facility], X-Ray - [facility] [address] [place] [address] Social History Tobacco Use Types Packs/Day Years [...] on filedocumented in this encounter Care Teams Reinforcing Rod Layer Relationship Specialty Start Date End Date Carey Boyd PA [address] [place] [address] PCP - General Quartz Orientator 08/13/20 Regulo Lundberg MD [address] [place] [address] [email or web address] Insurance Assigned Provider 11/16/20 04/18/22 Shanda Wilkinson MD [address] [place] [phone] Insurance Assigned Provider 04/18/22 01/18/23 Shanda Wilkinson MD [address] [place] [address] Insurance Assigned Provider 04/18/22 02/19/23 documented as of this encounter Additional Source Comments The information contained in this document represents components of the legal health record. It is not the complete legal health record.[facility]
--- OUTSIDE RECORDS SUMMARY | 2025-03-14 09:31 | XMS_ITS | Encounter Summary ---
Author Organization [facility] Address [address] [facility] [address] [place] [address] Phone Care Team Providers Care Defective Cigarette Slitter Name Role Phone Edmund Cope MD Primary [...] MD Unavailable + Shanda Wilkinson MD Unavailable [phone] Encounter Details Date Type Department Care Team (Late st Contact Info) Description 11/15/2018 Procedure Pass [facility], [address] [phone] Social History Tobacco Use Types Packs/Day Years [...] on filedocumented in this encounter Care Teams Defective Cigarette Slitter Relationship Specialty Start Date End Date Edmund Cope MD [email or web address] PCP - General Internal Medicine 05/16/17 01/07/20 Edmund Cope MD [email or web address] PCP - General Internal Medicine 01/08/20 02/14/20 Shannon Garcia NP [address] [place] [address] [email or web address] PCP - General Family Medicine 02/15/20 08/12/20 Carey Boyd PA [address] [place] [address] PCP - General Fuel Island Attendant 08/13/20 Edmund Cope MD [address] [place] [address] [email or web address] Insurance Assigned Provider 10/14/18 03/24/19 Edmund Cope MD [address] [place] [address] [email or web address] Insurance Assigned Provider 09/19/19 04/19/20 Regulo Lundberg MD [address] [place] [address] [email or web address] Insurance Assigned Provider 04/19/20 09/20/20 Natasha Cerrato RN [address] [place] [address] [email or web address] 08/14/20 08/31/20 Shanda Wilkinson MD [address] [place] [address] [email or web address] Insurance Assigned Provider 09/20/20 11/16/20 Regulo Lundberg MD [address] [place] [address] [email or web address] Insurance Assigned Provider 11/16/20 04/18/22 Shanda Wilkinson MD [address] [place] [address] [email or web address] Insurance Assigned Provider 04/18/22 01/18/23 Shanda Wilkinson MD [address] [place] [address] [email or web address] Insurance Assigned Provider 04/18/22 02/19/23 documented as of this encounter Additional Source Comments The information contained in this document represents components of the legal health record. It is not the complete legal health record.[facility]
--- OUTSIDE RECORDS SUMMARY | 2025-03-14 09:31 | XMS_ITS | Encounter Summary ---
Author Organization [facility] Address [address] [facility] [address] [place] [address] Phone Care Team Providers Care Can Filling And Closing Machine Tender Name Role Phone Edmund Cope MD Primary [...] laterality System, Provider Not In, [facility] [address] [address] Phone: tel: Referral ID Status Reason Start Date Expiration Date Visits Re quested Visits Authorized [id number] Closed 09/01/2018 09/02/2019 1 1 Encounter Details Date Type Department Care Team (Latest Contact Info) Description 09/01/2018 Transcribe Orders [facility] [address] [place] [phone] Self-Referred, Patient Myoclonus (Primary Dx); Chronic ankle [...] Diagnoses Orde r Schedule Ambulatory referral to [facility] Outpatient Referral Routine Myoclonus Chronic ankle pain, unspecified laterality Ordered: 09/01/2018 documented as of this encounter Visit Diagnoses Diagnosis Myoclonus- Primary Chronic ankle pain, unspecified laterality documented in this encounter Care Teams Can Filling And Closing Machine Tender Relationship Specialty Start Date End Date Edmund Cope MD [email or web address] PCP - General Internal Medicine 05/16/17 01/07/20 Edmund Cope MD PCP - General Internal Medicine 01/08/20 02/14/20 Shannon Garcia NP [address] [place] [address] [email or web address] PCP - General Family Medicine 02/15/20 08/12/20 Carey Boyd PA [address] [place] [address] PCP - General Rehabilitation Worker 08/13/20 Edmund Cope MD [address] [place] [address] [email or web address] Insurance Assigned Provider 10/14/18 03/24/19 Edmund Cope MD [address] [place] [address] [email or web address] Insurance Assigned Provider 09/19/19 04/19/20 Regulo Lundberg MD [address] [place] [address] [email or web address] Insurance Assigned Provider 04/19/20 09/20/20 Natasha Cerrato RN [address] [place] [address] [email or web address] Medical Assisting Program Director 08/14/20 08/31/20 Shanda Wilkinson MD [address] [place] [address] [email or web address] Insurance Assigned Provider 09/20/20 11/16/20 Regulo Lundberg MD [address] [place] [address] [email or web address] Insurance Assigned Provider 11/16/20 04/18/22 Shanda Wilkinson MD [address] [place] [address] [email or web address] Insurance Assigned Provider 04/18/22 01/18/23 Shanda Wilkinson MD [address] [place] [address] [email or web address] Insurance Assigned Provider 04/18/22 02/19/23 documented as of this encounter Additional Source Comments The information contained in this document represents components of the legal health record. It is not the complete legal health record.[facility]
== END 2025-03-14 09:26 | disposition home or self-care (01) ==
LOC: HO.HMCSH 08:54
PROVIDERS: PCP Physician Assistant Medical; Visit Provider Physician Assistant Medical
DX: N63.0 Unspecified lump in unspecified breast (principal); S93.409A Sprain of unspecified ligament of unspecified ankle, initial encounter; D47.2 Monoclonal gammopathy; E78.5 Hyperlipidemia, unspecified; E55.9 Vitamin D deficiency, unspecified; Z23 Encounter for immunization

== ENCOUNTER → 2025-03-14 08:54 | Outpatient (BNVA) | payer OTHER, SELFPAY | PROVIDERS: PCP Physician Assistant Medical; Visit Provider Physician Assistant Medical | DX: D47.2 Monoclonal gammopathy (principal); E78.5 Hyperlipidemia, unspecified; E55.9 Vitamin D deficiency, unspecified; N63.15 Unspecified lump in the right breast, overlapping quadrants; S93.402A Sprain of unspecified ligament of left ankle, initial encounter; W19.XXXA Unspecified fall, initial encounter; Y93.9 Activity, unspecified; Y92.9 Unspecified place or not applicable; Y99.9 Unspecified external cause status; Z23 Encounter for immunization | CPT/HCPCS: 90471; 90656; 96127 ==

== ENCOUNTER 2025-03-22 08:00 | Outpatient (AMB) | payer OTHER, SELFPAY ==
--- NOTE | 2025-03-22 08:08 | A.OFFVIS_ITS ---
Vital Signs 03/22/25 08:09 Height 5 ft 5 in Weight 150 lb BMI 25.0 BP 118/70 Blood Pressure Location Rt brachial Position Sitting Pulse 76 Pulse Source Pulse Oximeter Pulse Oximetry (%) 95 Oxygen Delivery Method Room Air Intake Visit Reasons: Joint Pain Intake Note: Joint pain Press Catcher Required: No Accompanied by: Self / Same As Patient Allergies scallops Allergy (Unknown, Verified 03/22/25 08:09) Unknown Gabapentin Allergy (Unknown, Uncoded 03/14/25 09:23) neurologic side effects Medication List - Last Reconciled 03/22/25 by Nan Paul MD acetaminophen (Tylenol Extra Strength) 1,000 mg (2 x 500 mg) PO Q8H PRN cholecalciferol (vitamin D3) 1,250 mcg PO QWEEK 3 months dextroamphetamine-amphetamine 15 mg ER 15 mg PO BID 90 days hydroxychloroquine 200 mg PO ONCE propranolol 10 mg PO ONCE trazodone 100 mg PO DAILY HPI Comments Details: Patient is a 34 y.o. 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 and she has been trying to get back to see rheumatology since then Tried to taper the plaquenil but noted that once she would stop the plaquenil she would have return of her joint pain Joint pain: - Initially complained of burning pain to the elbow, wrists, and hands - These sx were improved with plaquenil and would return once it the plaquenil was stopped Denies rashes (but notes a hx of recurrent shingles after having chicken pox as a child), photosensitivity, alopecia, nasal ulcers, lymphadenopathy, chest pain/shortness of breath, inflammatory type joint pain, foamy urine, lower extremity edema, muscle weakness, Raynaud's Also denies history of seizure, CVA, psychosis, history of kidney problems, history of cytopenias, history of VTE including PE or DVTs Notes oral ulcers - fluid filled Reports dry eyes and dry mouth PFSH Medical History (Updated 03/22/25 @ 08:45 by Nan Paul MD) Undifferentiated connective tissue disease Ankle sprain Hyperlipidemia Breast lump Triceps tendon rupture Overweight with body mass index (BMI) of 26 to 26.9 in adult Injury of left elbow Annual physical exam Hyperlipidemia with target low density lipoprotein (LDL) cholesterol less than 100 mg/dL Vitamin D deficiency Small fiber neuropathy Fracture of distal end of left fibula Multiple joint pain Postural orthostatic tachycardia syndrome PTSD (post-traumatic stress disorder) Selective immunoglobulin M deficiency Monoclonal gammopathy Channing's thyroiditis Surgical History S/P hardware removal S/P right rotator cuff repair S/P posterior Bankart repair of right shoulder Family History Paternal Grandfather Malignant carcinoid tumor of lung Mother Thyroid nodule Malignant tumor of thyroid gland Social History Household Members: None Housing: Apartment Patient Tobacco Use Status: Former Tobacco user Tobacco use type: Cigarette service: No Current occupational status: employed Cognitive needs: No Hearing needs: No Vision needs: No Review of Systems Const Details: Review of Systems Constitutional: Denies fever, chills, weight loss (however at the initial presentation she had unexplained weight loss but this has since resolved) ENT: Denies vision changes, eye pain or eye redness, dental caries, dry mouth GI: Denies nausea, vomiting, diarrhea, abdominal pain, change in BM Pulm: Denies SOB, KANG, hemoptysis, wheezing Cards: Denies chest pain, palpitations Skin: Denies Raynaud's, rash, nail changes, photosensitivity, HAND FOLDER: Denies headaches, weakness, paresthesias, recurrent falls MSK: as per HPI All other systems reviewed and are unremarkable except noted above Physical Exam Exam Exam: Vital signs reviewed Physical Examination CONSTITUITIONAL Patient alert and cooperative. Well appearing and in no apparent painful distress HEENT Conjunctiva and sclera clear. No lymphadenopathy. No oral/nasal ulcers MSK Hands * Right Hand: Able to make a fist. No swelling or tenderness to palpation of the MCPs, PIPs or DIPs. No deformities noted. * Left Hand: Able to make a fist. No swelling or tenderness to palpation of the MCPs, PIPs or DIPs. No deformities noted. Wrists * Right Wrist: Full ROM to flexion and extension. No swelling or TTP * Left Wrist: Full ROM to flexion and extension. No swelling or TTP Elbows * Right Elbow: Full ROM. No swelling or TTP. No TTP of the medial epicondyle. No TTP of the lateral epicondyle * Left Elbow: Full ROM. No swelling or TTP. No TTP of the medial epicondyle. No TTP of the lateral epicondyle Shoulders * Right shoulder: Full ROM. No swelling noted. No TTP of the AC joint. No TTP of the subacromial bursa. No TTP of the posterior shoulder * Left shoulder: Full ROM. No swelling noted. No TTP of the AC joint. No TTP of the subacromial bursa. No TTP of the posterior shoulder Hips * Right hip: Good ROM. No pain elicited with hip flexion/internal rotation/external rotation * Left hip: Good ROM. No pain elicited with hip flexion/internal rotation/external rotation Hip bursa: No tenderness to palpation bilaterally Knees * Right knee: Full ROM. No swelling noted. No TTP of the knee joint line. No TTP of pes anserine bursa * Left knee: Full ROM. No swelling noted. No TTP of the knee joint line. No TTP of pes anserine bursa. Ankles * Right ankle: Good ankle dorsiflexion and plantar flexion. No swelling. No TTP of the ankle joint * Left ankle: Good ankle dorsiflexion and plantar flexion. No swelling. TTP of the ankle joint Feet * Right foot: Negative squeeze test * Left foot: Negative squeeze test Tender points? * No tenderness to palpation of the bilateral trapezius, supraspinatus, anterior costochondral junctions, bilateral suboccipital muscle insertions SKIN No rashes Vital Signs: Last Vital Signs Pulse 76 03/22/25 08:09 BP 118/70 03/22/25 08:09 Pulse Ox 95 03/22/25 08:09 Oxygen Delivery Method Room Air 03/22/25 08:09 BMI result Body Mass Index 25.0 Results Reviewed Results Reviewed: Laboratory Tests 08/14/24 08/28/24 07:37 15:03 WBC 6.3 RBC 4.93 Hgb 14.2 Hct 42.4 Plt Count 310 Sodium 140 Potassium 4.1 Chloride 107 Carbon Dioxide 27 BUN 9 Creatinine 0.75 AST 26 ALT 13 C-Reactive Protein 0.22 Assessment & Plan Assessment & Plan (1) Undifferentiated connective tissue disease: Code(s): M35.9 - Systemic involvement of connective tissue, unspecified Category: Medical Plan: #UCTD Patient is a 33-year-old female with Channing's thyroiditis here today to establish care for the management of what we will call undifferentiated connective tissue disease. She does note that she gets some benefit from hydroxychloroquine use and when she stops the medication she has return of symptoms. Patient's history and and exam are not tip is whole for autoimmune connective tissue disease however since she does get benefit from Plaquenil we will continue it. I did discuss with the patient that ideally I would not have started her on hydroxychloroquine given that she does not have any overt autoimmune connective tissue disease type symptoms or exam findings. But since she is on it and has been getting good benefit from it I think we should continue it at this time. Plan - hydroxychloroquine 300 mg daily (weight based) - labs today: CEZAR, SSA/SSB, Márquez/SUPERVISOR ASSEMBLING, C3, C4, APS labs, ESR, CRP, CMP, CBC - RTC 6 months (2) Encounter for monitoring of hydroxychloroquine therapy: Code(s): Z51.81 - Encounter for therapeutic drug level monitoring; Z79.899 - Other termite renewal inspector (current) drug therapy Plan: #Long-term Use of Hydroxychloroquine Discussed with patient the risks and benefits of hydroxychloroquine in managing the rheumatic condition Benefits include: - Reduced pain, reduce mortality, maintenance of remission and reduction of flares Risks include: - GI upset, skin hyperpigmentation, retinal toxicity (especially after more than 5 years of use), myopathy Advised yearly ophthalmology visits Plan I spent 30 minutes reviewing the record and labs, taking a history, examining the patient, discussing the treatment plan, ordering diagnostic work up and documenting in the medical record Orders: Orders Comprehensive Met. Panel Today M32.9 - Systemic lupus erythematosus, unspecified, M35.9 - Systemic involvement of connective tissue, unspecified Complement C3 Today M32.9 - Systemic lupus erythematosus, unspecified, M35.9 - Systemic involvement of connective tissue, unspecified Protein Creatinine Ratio, Ur Today M32.9 - Systemic lupus erythematosus, unspecified, M35.9 - Systemic involvement of connective tissue, unspecified Histone Antibody Today M32.9 - Systemic lupus erythematosus, unspecified, M35.9 - Systemic involvement of connective tissue, unspecified CEZAR Reflex Titer and Pattern Today D68.61 - Antiphospholipid syndrome, M35.9 - Systemic involvement of connective tissue, unspecified Cardiolipin Antibodies Today D68.61 - Antiphospholipid syndrome, M35.9 - Sys temic involvement of connective tissue, unspecified Vitamin D 25-OH Total Today M35.9 - Systemic involvement of connective tissue, unspecified, Z79.899 - Other termite renewal inspector (current) drug therapy Complete Blood Count Auto Diff Today M32.9 - Systemic lupus erythematosus, unspecified, M35.9 - Systemic involvement of connective tissue, unspecified C Reactive Protein Today M32.9 - Systemic lupus erythematosus, unspecified, M35.9 - Systemic involvement of connective tissue, unspecified Erythrocyte Sedimentation Rate Today M32.9 - Systemic lupus erythematosus, unspecified, M35.9 - Systemic involvement of connective tissue, unspecified Complement C4 Today M32.9 - Systemic lupus erythematosus, unspecified, M35.9 - Systemic involvement of connective tissue, unspecified Anti DNA DS Antibody Today M32.9 - Systemic lupus erythematosus, unspecified, M35.9 - Systemic involvement of connective tissue, unspecified UA ClnCatch+Micro w/rflx Cult Today M32.9 - Systemic lupus erythematosus, unspecified, M35.9 - Systemic involvement of connective tissue, unspecified Sm Sm/SUPERVISOR ASSEMBLING Antibodies Today M32.9 - Systemic lupus erythematosus, unspecified, M35.9 - Systemic involvement of connective tissue, unspecified Beta-2 Glycoprotein Antibody Today D68.61 - Antiphospholipid syndrome, M35.9 - Systemic involvement of connective tissue, unspecified Lupus Anticoagulant Panel Today D68.61 - Antiphospholipid syndrome, M35.9 - Systemic involvement of connective tissue, unspecified Scleroderma 12 Panel Today M35.9 - Systemic involvement of connective tissue, unspecified Sjogren's Antibodies Today M35.9 - Systemic involvement of connective tissue, unspecified Medications: New hydroxychloroquine (Sovuna) 300 mg PO DAILY 90 tabs 1RF M35.9 - Systemic involvement of connective tissue, unspecified Coding Level of Care Code New Pt Level 4 (72909) Complex EM visit Add On G2211 Diagnoses Undifferentiated connective tissue disease M35.9 Encounter for monitoring of hydroxychloroquine therapy Z51.81; Z79.899
[2025-03-22 08:09] VITALS: BP 118/70; PULSE 76; O2SAT 95; BMI 25.0
== END 2025-03-22 08:48 | disposition home or self-care (01) ==
LOC: HO.RHES 08:01
PROVIDERS: PCP Internal Medicine; Visit Provider Student in an Organized Health Care Education/Training Program
DX: M35.9 Systemic involvement of connective tissue, unspecified (principal); Z51.81 Encounter for therapeutic drug level monitoring; Z79.899 Other long term (current) drug therapy
CPT/HCPCS: 99204

== ENCOUNTER 2025-03-26 10:13 | Outpatient (REF) | payer OTHER, SELFPAY ==
--- NOTE | ~2025-03-26 | XR_ITS ---
EXAMINATION: XR FOOT, LEFT CLINICAL INFORMATION: M19.072 - Primary osteoarthritis, left ankle and foot COMPARISON: None available. TECHNIQUE: AP, lateral, and oblique views of the left foot. FINDINGS: There is hallux valgus deformity. There are minute marginal osteophyte involving the first MTP joint. There is sclerosis in the central first metatarsal head, likely degenerative. There is moderate lateral subluxation of the first metatarsal sesamoids. Joint spaces are preserved and there is no diastases or malalignment. XR/XR foot LT min 3V IMPRESSION: Hallux valgus deformity with mild changes of osteoarthritis involving the first MTP joint. Electronically signed by: Vinod Daugherty MD 03/26/2025 12:13 PM EDT
--- NOTE | ~2025-03-26 | XR_ITS ---
EXAMINATION: XR CALCANEUS, LEFT CLINICAL INFORMATION: M21.072 - Valgus deformity, not elsewhere classified, left ankle COMPARISON: None available. TECHNIQUE: Lateral and axial views of the left calcaneus were obtained. FINDINGS: The bones and soft tissues are normal. No fracture. Alignment is anatomic. Joint spaces are maintained. No enthesopathic spurs are evident at the calcaneus. XR/XR calcaneus LT min 2V IMPRESSION: Unremarkable left calcaneus. Electronically signed by: Vinod Daugherty MD 03/26/2025 12:07 PM EDT
--- NOTE | ~2025-03-26 | XR_ITS ---
EXAMINATION: XR ANKLE, LEFT CLINICAL INFORMATION: S93.402A - Sprain of unspecified ligament of left ankle, initial encounter COMPARISON: March 05, 2025 TECHNIQUE: AP, lateral, and mortise views of the left ankle. FINDINGS: There is arthrodesis across the distal tibia fibula joint. There is a retained broken screw in the distal tibial metaphysis. There are lucent tracks from removed hardware in the distal fibula diaphysis. The talar dome appears intact. Ankle mortise is congruent. No acute fracture is evident. There is improved lateral soft tissue swelling. XR/XR ankle LT min 3V IMPRESSION: Lateral soft tissue swelling has decreased since the prior. There is mature bone bridging the distal tibia and fibula joint. Electronically signed by: Vinod Daugherty MD 03/26/2025 12:10 PM EDT
[2025-03-26 11:17] LABS: MANUAL DIFF FLAG NO
--- OUTSIDE RECORDS SUMMARY | 2025-03-26 11:56 | XMS_ITS | Encounter Summary ---
Author Organization [facility] Address [address] [facility] [address] [place] [address] Phone Care Team Providers Care Strike Planning Applications Name Role Phone Shannon Garcia NP Primary Care Provid er Regulo Lundberg MD Unavailable Carey Boyd Primary Care Provider [phone] Natasha Cerrato RN Unavailable Shanda Wilkinson MD Unavailable Regulo Lundberg MD Unavailable [phone] Shanda Wilkinson MD Unavailable [phone] Shanda Wilkinson MD Unavailable [phone] Encounter Details Date Type Department Care Team (Late st Contact Info) Description 05/28/2020 Procedure Pass [facility] [address] [place], [place] [id number] Social History Tobacco Use Types Packs/Day Years [...] on filedocumented in this encounter Care Teams Strike Planning Applications Relationship Specialty Start Date End Date Shannon Garcia NP [address] [place] [phone] [email or web address] PCP - General Family Medicine 02/15/20 08/12/20 Carey Boyd PA [address] [place] [phone] PCP - General Solar Tech 08/13/20 Regulo Lundberg MD [address] [place] [phone] Insurance Assigned Provider 04/19/20 09/20/20 Natasha Cerrato, FRITZ [address] [place] [phone] PHCM Dowel Pointer 08/14/20 08/31/20 Shanda Wilkinson MD [address] [place] [phone] Insurance Assigned Provider 09/20/20 11/16/20 Regulo Lundberg MD [address] [place] [phone] Insurance Assigned Provider 11/16/20 04/18/22 Shanda Wilkinson MD [address] [place] [address] [email or web address] Insurance Assigned Provider 04/18/22 01/18/23 Shanda Wilkinson MD [address] [place] [address] [email or web address] Insurance Assigned Provider 04/18/22 02/19/23 documented as of this encounter Additional Source Comments The information contained in this document represents components of the legal health record. It is not the complete legal health record.[facility]
--- OUTSIDE RECORDS SUMMARY | 2025-03-26 11:56 | XMS_ITS | Encounter Summary ---
Author Organization [facility] Address [address] [facility] [address] [place] [address] Phone Care Team Providers Care Paper Products Printer Name Role Phone Shannon Garcia NP Primary Care Provid er Regulo Lundberg MD Unavailable [phone] Carey Boyd Primary Care Provider [phone] Natasha Cerrato RN Unavailable Shanda Wilkinson MD Unavailable Regulo Lundberg MD Unavailable Shanda Wilkinson MD Unavailable [phone] Shanda Wilkinson MD Unavailable [phone] Encounter Details Date Type Department Care Team (Late st Contact Info) Description 07/30/2020 Procedure Pass [facility] Cardiology [address] [facility], [address] [place] [address] Social History Tobacco Use Types [...] on filedocumented in this encounter Care Teams Paper Products Printer Relationship Specialty Start Date End Date Shannon Garcia NP [address] [place] [address] PCP - General Family Medicine 02/15/20 08/12/20 Carey Boyd PA [address] [place] [address] PCP - General Horticultural Farmworker 08/13/20 Regulo Lundberg MD [address] [place] [address] 57[address] Insurance Assigned Provider 04/19/20 09/20/20 Natasha Cerrato, FRITZ [address] [place] [address] PHC Negative Turner Apprentice 08/14/20 08/31/20 Shanda Wilkinson MD [address] [place] [address] 29252 Insurance Assigned Provider 09/20/20 11/16/20 Regulo Lundberg MD [address] [place] [address] 28205 Insurance Assigned Provider 11/16/20 04/18/22 Shanda Wilkinson MD [address] [place] [address] [email or web address] Insurance Assigned Provider 04/18/22 01/18/23 Shanda Wilkinson MD [address] [place] [address] [email or web address] Insurance Assigned Provider 04/18/22 02/19/23 documented as of this encounter Additional Source Comments The information contained in this document represents components of the legal health record. It is not the complete legal health record.[facility]
--- OUTSIDE RECORDS SUMMARY | 2025-03-26 11:56 | XMS_ITS | Encounter Summary ---
Author Organization [facility] Address [address] [place] [address] Phone Care Team Providers Care Java Development Team Lead Name Role Phone Regulo Lundberg MD Unavailable [phone] Carey Boyd Primary Care Provider [phone] Natasha Cerrato RN Unavailable Shanda Wilkinson MD Unavailable Regulo Lundberg MD Unavailable Shanda Wilkinson MD Unavailable [phone] Shanda Wilkinson MD Unavailable [phone] Encounter Details Date Type Department Care Team (Late st Contact Info) Description 08/18/2020 Procedure Pass [facility] [address] [facility], [address] [place] [address] Social History Tobacco Use Types [...] on filedocumented in this encounter Care Teams Java Development Team Lead Relationship Specialty Start Date End Date Carey Boyd PA [address] [place] [address] PCP - General Clearing Hand 08/13/20 Regulo Lundberg MD [address] [place] [address] [email or web address] Insurance Assigned Provider 04/19/20 09/20/20 Natasha Cerrato RN [address] [place] [address] [email or web address] PHCM Wringer Operator 08/14/20 08/31/20 Shanda Wilkinson MD [address] [place] [address] Insurance Assigned Provider 09/20/20 11/16/20 Regulo Lundberg MD [address] [place] [address] [email or web address] Insurance Assigned Provider 11/16/20 04/18/22 Shanda Wilkinson MD [address] [place] [address] Insurance Assigned Provider 04/18/22 01/18/23 Shanda Wilkinson MD [address] [place] [address] [email or web address] Insurance Assigned Provider 04/18/22 02/19/23 documented as of this encounter Additional Source Comments The information contained in this document represents components of the legal health record. It is not the complete legal health record.[facility]
--- OUTSIDE RECORDS SUMMARY | 2025-03-26 11:56 | XMS_ITS | Encounter Summary ---
Author Organization [facility] Address [address] [employer] [facility] [address] [place] [address] Phone Care Team Providers Care Llama Farmer Name Role Phone Edmund Cope MD Primary Care Provider + Edmund Cope MD Unavailable + [phone] Edmund Cope MD Primary Care Provider + Shannon Garcia NP Primary Care Provid er + Regulo Lundberg MD Unavailable + Carey Boyd Primary Care Provider + Natasha Cerrato RN Unavailable Shanda Wilkinson MD Unavailable + Regulo Lundberg MD Unavailable + Shanda Wilkinson MD Unavailable + Shanda Wilkinsno MD Unavailable [phone] Encounter Details Date Type Department Care Team (Latest Contact Info) Description 10/25/[address] [facility] [address] [place], [place] [id number] Dalton Leone, 30 [place] [address] [email or web address] Screening for unspecified condition (Primary Dx) Social [...] Primary documented in this encounter Care Teams Llama Farmer Relationship Specialty Start Date End Date Edmund Cope MD [email or web address] PCP - General Internal Medicine 05/16/17 01/07/20 Edmund Cope MD [email or web address] PCP - General Internal Medicine 01/08/20 02/14/20 Shannon Garcia NP [address] [place] [address] [email or web address] PCP - General Family Medicine 02/15/20 08/12/20 Carey Boyd PA [address] [place] [address] PCP - General Automation Lead 08/13/20 Edmund Cope MD [address] [place] [address] [email or web address] Insurance Assigned Provider 09/19/19 04/19/20 Regulo Lundberg MD [address] [place] [address] 93892 Insurance Assigned Provider 04/19/20 09/20/20 Natasha Cerrato, RN [address] [place] [address] [facility] Leather Belt Shaper 08/14/20 08/31/20 Shanda Wilkinson MD [address] [place] [address] 88897 Insurance Assigned Provider 09/20/20 11/16/20 Regulo Lundberg MD [address] [place] [address] 77920 Insurance Assigned Provider 11/16/20 04/18/22 Shanda Wilkinson MD [address] [place] [address] 48266 Insurance Assigned Provider 04/18/22 01/18/23 Shanda Wilkinson MD [address] [place] [address] 33598 Insurance Assigned Provider 04/18/22 02/19/23 documented as of this encounter Additional Source Comments The information contained in this document represents components of the legal health record. It is not the complete legal health record.[facility]
--- OUTSIDE RECORDS SUMMARY | 2025-03-26 11:57 | XMS_ITS | Encounter Summary ---
Author Organization [facility] Address [address] [employer] [facility] [employer] [facility] [address] [place] [address] Phone Care Team Providers Care Passenger Screener Name Role Phone Regulo Lundberg MD Unavailable Carey Boyd Primary Care Provider [phone] Natasha Cerrato RN Unavailable Shanda Wilkinson MD Unavailable Regulo Lundberg MD Unavailable Shanda Wilkinson MD Unavailable [phone] Shanda Wilkinson MD Unavailable [phone] Encounter Details Date Type Department Care Team (Late st Contact Info) Description 08/25/2020 Procedure Pass [facility] [address] [place] [address] Social History Tobacco Use Types [...] on filedocumented in this encounter Care Teams Passenger Screener Relationship Specialty Start Date End Date Carey Boyd PA [address] [place] [address] PCP - General Engineer Technician 08/13/20 Regulo Lundberg MD [address] [place] [address] [email or web address] Insurance Assigned Provider 04/19/20 09/20/20 Natasha Cerrato RN [address] [place] [address] [email or web address] [facility] Weapons Engineer 08/14/20 08/31/20 Shanda Wilkinson MD [address] [place] [address] [email or web address] Insurance Assigned Provider 09/20/20 11/16/20 Regulo Lundberg MD [address] [place] [address] [email or web address] Insurance Assigned Provider 11/16/20 04/18/22 Shanda Wilkinson MD [address] [place] [address] 04[address] Insurance Assigned Provider 04/18/22 01/18/23 Shanda Wilkinson MD [address] [place] [address] [email or web address] Insurance Assigned Provider 04/18/22 02/19/23 documented as of this encounter Additional Source Comments The information contained in this document represents components of the legal health record. It is not the complete legal health record.[facility]
--- OUTSIDE RECORDS SUMMARY | 2025-03-26 11:57 | XMS_ITS | Encounter Summary ---
Author Organization [facility] Address [address] [employer] [facility] [address] [place] [address] Phone Care Team Providers Care Site Safety Coordinator Name Role Phone Carey Boyd Primary Care Provider + [phone] Regulo Lundberg MD Unavailable [phone] Shanda Wilkinson MD Unavailable [phone] Shanda Wilkinson MD Unavailable [phone] Encounter Details Date Type Department Care Team (Late st Contact Info) Description 10/29/2021 Procedure Pass [facility], [address] [address] Social History Tobacco Use Types Packs/Day Years [...] on filedocumented in this encounter Care Teams Site Safety Coordinator Relationship Specialty Start Date End Date Carey Boyd PA [address] [place] [address] PCP - General Incinerator Plant General Supervisor 08/13/20 Regulo Lundberg MD [address] [place] [address] [email or web address] Insurance Assigned Provider 11/16/20 04/18/22 Shanda Wilkinson MD [address] [place] [address] Insurance Assigned Provider 04/18/22 01/18/23 Shanda Wilkinson MD [address] [place] [address] Insurance Assigned Provider 04/18/22 02/19/23 documented as of this encounter Additional Source Comments The information contained in this document represents components of the legal health record. It is not the complete legal health record.[facility]
--- OUTSIDE RECORDS SUMMARY | 2025-03-26 11:57 | XMS_ITS | Encounter Summary ---
Author Organization [facility] Address [address] [employer] [facility] [address] [place] [address] Phone Care Team Providers Care Javascript Programmer Name Role Phone Edmund Cope MD Unavailable [phone] Shannon Garcia NP Primary Care Provid er Regulo Lundberg MD Unavailable Carey Boyd Primary Care Provider [phone] Natasha Cerrato RN Unavailable Shanda Wilkinson MD Unavailable Regulo Lundberg MD Unavailable Shanda Wilknison MD Unavailable Shanda Wilkinson MD Unavailable [phone] Encounter Details Date Type Department Care Team (Late st Contact Info) Description 02/20/2020 Procedure Pass [facility] - [address] [id number] Social History Tobacco Use Types Packs/Day Years [...] on filedocumented in this encounter Care Teams Javascript Programmer Relationship Specialty Start Date End Date Shannon Garcia NP [address] [place] [address] [email or web address] PCP - General Family Medicine 02/15/20 08/12/20 Carey Boyd PA [address] [place] [address] PCP - General Supervisor Cell Room 08/13/20 Edmund Cope MD [address] [place] [address] Insurance Assigned Provider 09/19/19 04/19/20 Regulo Lundberg MD [address] [place] [address] Insurance Assigned Provider 04/19/20 09/20/20 Natasha Cerrato RN [address] [place] [address] PHCM Qualitative Field Coordinator 08/14/20 08/31/20 Shanda Wilkinson MD [address] [place] [address] [email or web address] Insurance Assigned Provider 09/20/20 11/16/20 Regulo Lundberg MD [address] [place] [address] [email or web address] Insurance Assigned Provider 11/16/20 04/18/22 Shanda Wilkinson MD [address] [place] [address] [email or web address] Insurance Assigned Provider 04/18/22 01/18/23 Shanda Wilkinson MD [address] [place] [address] [email or web address] Insurance Assigned Provider 04/18/22 02/19/23 documented as of this encounter Additional Source Comments The information contained in this document represents components of the legal health record. It is not the complete legal health record.[facility]
--- OUTSIDE RECORDS SUMMARY | 2025-03-26 11:57 | XMS_ITS | Encounter Summary ---
Author Organization [facility] Address [address] [facility] [address] [place] [address] Phone Care Team Providers Care Buttermaker Continuous Churn Name Role Phone Edmund Cope MD Unavailable [phone] Shannon Garcia NP Primary Care Provid er Regulo Lundberg MD Unavailable [phone] Carey Boyd Primary Care Provider [phone] Natasha Cerrato RN Unavailable Shanda Wilkinson MD Unavailable [phone] Regulo Lundberg MD Unavailable [phone] Shanda Wilkinson MD Unavailable [phone] Shanda Wilkinson MD Unavailable [phone] Reason for Referral * Outpatient Procedure - Closed Specialty Diagnoses / Procedures Referred By Meche yuan Referred To Contact Radiology Diagnoses Nausea Vomiting without nausea, intractability of vomiting not specified, unspecified vomiting type Abnormal weight loss Procedures NM Gastric Emptying Moise Gomez MD Phone: tel: fax: mailto: Referral ID Status Reason Start Date Expiration Date Visits Re quested Visits Authorized [id number] Closed 03/11/2020 03/11/2021 1 1 Encounter Details Date Type Department Care Team (Latest Contact Info) Description 03/11/2020 Transcribe Orders Virtual Department [address] [place] [address] Moise Gomez MD [address] [address] [email or web address] Nausea (Primary Dx); Vomiting without [...] activity is still present in the stomach (iywxxo74-57%) At two hours 45% of activity is still present in the stomach (voetpe63-20%) At four hours is 2.5% of activity is still present in the stomach (normal0-10%) IMPRESSION: Normal gastric emptying. POS - [id number] Moise Gomez MD [facility] Final Result documented in this encounter Visit Diagnoses Diagnosis Nausea- Primary Nausea alone Vomiting without nausea, intractability of vomiting not specified, unspecified vomiting type Abnormal weight loss Loss of weight Nausea Nausea alone Vomiting without nausea, intractability of vomiting not specified, unspecified vomiting type Abnormal weight loss Loss of weight documented in this encounter Care Teams Buttermaker Continuous Churn Relationship Specialty Start Date End Date Shannon Garcia NP [address] [place] [address] [email or web address] PCP - General Family Medicine 02/15/20 08/12/20 Carey Boyd PA [address] [place] [address] PCP - General Phlebotomist Associate 08/13/20 Edmund Cope MD [address] [place] [address] [email or web address] Insurance Assigned Provider 09/19/19 04/19/20 Regulo Lundberg MD [address] [place] [address] Insurance Assigned Provider 04/19/20 09/20/20 Natasha Cerrato, RN 10 [place] [address] [email or web address] [facility] Base Filler Operator 08/14/20 08/31/20 Shanda Wilkinson MD [address] [place] [address] Insurance Assigned Provider 09/20/20 11/16/20 Regulo Lundberg MD [address] [place] [address] Insurance Assigned Provider 11/16/20 04/18/22 Shanda Wilkinson MD [address] [place] [address] 79[address] Insurance Assigned Provider 04/18/22 01/18/23 Shanda Wilkinson MD [address] [place] [address]326 Insurance Assigned Provider 04/18/22 02/19/23 documented as of this encounter Additional Source Comments The information contained in this document represents components of the legal health record. It is not the complete legal health record.[facility]
--- OUTSIDE RECORDS SUMMARY | 2025-03-26 11:57 | XMS_ITS | Encounter Summary ---
Author Organization [facility] Address [address] [employer] [facility] [address] [place] [address] Phone Care Team Providers Care Emr Analyst Name Role Phone Edmund Cope MD Primary Care Provider + Edmund Cope MD Unavailable [phone] Edmund Cope MD Primary Care Provider + Shannon Garcia NP Primary Care Provid er + Regulo Lundberg MD Unavailable + Carey Boyd Primary Care Provider + Natasha Cerrato RN Unavailable Shanda Wilkinson MD Unavailable [phone] Regulo Lundberg MD Unavailable + Shanda Wilkinson MD Unavailable + Shanda Wilkinson MD Unavailable +[phone] Encounter Details Date Type Department Care Team (Late st Contact Info) Description 01/04/2020 Procedure Pass [facility], [address] [place], [place] [phone] Social History Tobacco Use Types Packs/Day Years [...] on filedocumented in this encounter Care Teams Emr Analyst Relationship Specialty Start Date End Date Edmund Cope MD [email or web address] PCP - General Internal Medicine 05/16/17 01/07/20 Edmund Cope MD [email or web address] PCP - General Internal Medicine 01/08/20 02/14/20 Shannon Garcia NP [address] [place] [address] [email or web address] PCP - General Family Medicine 02/15/20 08/12/20 Carey Boyd PA [address] [place] [address] PCP - General Roll Forming Machine Set Up Operator 08/13/20 Edmund Cope MD [address] [place] [address] [email or web address] Insurance Assigned Provider 09/19/19 04/19/20 Regulo Lundberg MD [address] [place] [address] [email or web address] Insurance Assigned Provider 04/19/20 09/20/20 Natasha Cerrato, RN [address] [place] [address] [email or web address] [facility] Digital Retoucher 08/14/20 08/31/20 Shanda Wilkinson MD [address] [place] [address] [email or web address] Insurance Assigned Provider 09/20/20 11/16/20 Regulo Lundberg MD [address] [place] [address] [email or web address] Insurance Assigned Provider 11/16/20 04/18/22 Shanda Wilkinson MD [address] [place] [address] [email or web address] Insurance Assigned Provider 04/18/22 01/18/23 Shanda Wilkinson MD [address] [place] [address] [email or web address] Insurance Assigned Provider 04/18/22 02/19/23 documented as of this encounter Additional Source Comments The information contained in this document represents components of the legal health record. It is not the complete legal health record.[facility]
--- OUTSIDE RECORDS SUMMARY | 2025-03-26 11:57 | XMS_ITS | Encounter Summary ---
Author Organization [facility] Address [address] [employer] [facility] [address] [place] [address] Phone Care Team Providers Care Tire Changer Name Role Phone Edmund Cope MD Primary Care Provider + Edmund Cope MD Unavailable [phone] Edmund Cope MD Primary Care Provider + Shannon Garcia NP Primary Care Provid er + Regulo Lundberg MD Unavailable + Carey Boyd Primary Care Provider + Natasha Cerrato RN Unavailable Shanda Wilkinson MD Unavailable +[phone] Regulo Lundberg MD Unavailable + Shanda Wilkinson MD Unavailable + Shanda Wilkinson MD Unavailable [phone] Encounter Details Date Type Department Care Team (Late st Contact Info) Description 01/04/2020 Procedure Pass [facility], [address] [place], [place] [phone] Social History Tobacco Use Types Packs/Day Years [...] on filedocumented in this encounter Care Teams Tire Changer Relationship Specialty Start Date End Date Edmund Cope MD [email or web address] PCP - General Internal Medicine 05/16/17 01/07/20 Edmund Cope MD [email or web address] PCP - General Internal Medicine 01/08/20 02/14/20 Shannon Garcia NP [address] [place] [address] [email or web address] PCP - General Family Medicine 02/15/20 08/12/20 Carey Boyd PA [address] [place] [address] PCP - General Mechanical Research Engineer 08/13/20 Edmund Cope MD [address] [place] [address] [email or web address] Insurance Assigned Provider 09/19/19 04/19/20 Regulo Lundberg MD [address] [place] [address] [email or web address] Insurance Assigned Provider 04/19/20 09/20/20 Natasha Cerrato, RN [address] [place] [address] [email or web address] [facility] Assistive Technology Specialist 08/14/20 08/31/20 Shanda Wilkinson MD [address] [place] [address] [email or web address] Insurance Assigned Provider 09/20/20 11/16/20 Regulo Lundberg MD [address] [place] [address] [email or web address] Insurance Assigned Provider 11/16/20 04/18/22 Shanda Wilkinson MD [address] [place] [address] [email or web address] Insurance Assigned Provider 04/18/22 01/18/23 Shanda Wilkinson MD [address] [place] [address] [email or web address] Insurance Assigned Provider 04/18/22 02/19/23 documented as of this encounter Additional Source Comments The information contained in this document represents components of the legal health record. It is not the complete legal health record.[facility]
--- OUTSIDE RECORDS SUMMARY | 2025-03-26 11:57 | XMS_ITS | Encounter Summary ---
Author Organization [facility] Address [email or web address] [facility] [address] [place] [address] Phone Care Team Providers Care Music Supervisor Name Role Phone Edmund Cope MD Primary Care Provider + Edmund Cope MD Unavailable [phone] Edmund Cope MD Primary Care Provider + Shannon Garcia NP Primary Care Provid er + Regulo Lundberg MD Unavailable + Carey Boyd Primary Care Provider + Natasha Cerrato RN Unavailable Shanda Wilkinson MD Unavailable + Regulo Lundberg MD Unavailable + Shanda Wilkinson MD Unavailable + Shanda Wilkinson MD Unavailable [phone] Encounter Details Date Type Department Care Team (Late st Contact Info) Description 11/14/2019 Procedure Pass [facility], Ct Scan - [facility] [address] [place], [place] [id number] Social History Tobacco Use Types Packs/Day Years [...] on filedocumented in this encounter Care Teams Music Supervisor Relationship Specialty Start Date End Date Edmund Cope MD [email or web address] PCP - General Internal Medicine 05/16/17 01/07/20 Edmund Cope MD [email or web address] PCP - General Internal Medicine 01/08/20 02/14/20 Shannon Garcia NP [address] [place] [address] [email or web address] PCP - General Family Medicine 02/15/20 08/12/20 Carey Boyd PA [address] [place] [address] PCP - General Business Rules Analyst 08/13/20 Edmund Cope MD [address] [place] [address] [email or web address] Insurance Assigned Provider 09/19/19 04/19/20 Regulo Lundberg MD [address] [place] [address] [email or web address] Insurance Assigned Provider 04/19/20 09/20/20 Natasha Cerrato, RN [address] [place] [address] [facility] Sales Demonstrator 08/14/20 08/31/20 Shanda Wilkinson MD [address] [place] [address] [email or web address] Insurance Assigned Provider 09/20/20 11/16/20 Regulo Lundberg MD [address] [place] [address] [email or web address] Insurance Assigned Provider 11/16/20 04/18/22 Shanda Wilkinson MD [address] [place] [address] [email or web address] Insurance Assigned Provider 04/18/22 01/18/23 Shanda Wilkinson MD [address] [place] [address] [email or web address] Insurance Assigned Provider 04/18/22 02/19/23 documented as of this encounter Additional Source Comments The information contained in this document represents components of the legal health record. It is not the complete legal health record.[facility]
--- OUTSIDE RECORDS SUMMARY | 2025-03-26 11:57 | XMS_ITS | Encounter Summary ---
Author Organization [facility] Address [address] [employer] [facility] [address] [place] [address] Phone Care Team Providers Care Neckties Painter Name Role Phone Regulo Lundberg MD Unavailable Carey Boyd Primary Care Provider [phone] Shanda Wilkinson MD Unavailable Regulo Lundberg MD Unavailable Shanda Wilkinson MD Unavailable Shanda Wilkinson MD Unavailable [phone] Encounter Details Date Type Department Care Team (Late st Contact Info) Description 09/08/2020 Ancillary Orders [facility] Department of Orthopaedic Surgery, Foot & Ankle Service [address] [facility], 3rd Floor, [address] [place] [address] Ruiz Sauer PA-C [address] [place] [address] [email or web address] Pain Social History Tobacco Use Types [...] pain documented in this encounter Care Teams Neckties Painter Relationship Specialty Start Date End Date Carey Boyd PA [address] [place] [address] PCP - General Rn Hemo Dialysis 08/13/20 Regulo Lundberg MD [address] [place] [address] Insurance Assigned Provider 04/19/20 09/20/20 Shanda Wilkinson MD [address] [place] [address] Insurance Assigned Provider 09/20/20 11/16/20 Regulo Lundberg MD [address] [place] [address]184 Insurance Assigned Provider 11/16/20 04/18/22 Shanda Wilkinson MD [address] [place] [address] 13584 Insurance Assigned Provider 04/18/22 01/18/23 Shanda Wilkinson MD [address] [place] [phone] Insurance Assigned Provider 04/18/22 02/19/23 documented as of this encounter Additional Source Comments The information contained in this document represents components of the legal health record. It is not the complete legal health record.[facility]
--- OUTSIDE RECORDS SUMMARY | 2025-03-26 11:57 | XMS_ITS | Encounter Summary ---
Author Organization [facility] Address [address] [facility] [address] [place] [address] Phone Care Team Providers Care Mounter Flutes And Piccolos Name Role Phone Edmund Cope MD Primary [...] MD Unavailable + Shanda Wilkinson MD Unavailable [phone] Reason for Referral * MRI/CAT Scan - Closed Specialty Diagnoses / Procedures Referred By Contcoco t Referred To Contact Radiology Diagnoses Multiple joint pain Arthralgia, unspecified joint Procedures MRI Hand (Right) Clay Cavazos MD Phone: tel: fax: Referral ID Status Reason Start Date Expiration Date Visits Re quested Visits Authorized [id number] Closed 01/21/2020 07/19/2020 1 1 * MRI/CAT Scan - Closed Specialty Diagnoses / Procedures Referred By Contac t Referred To Contact Radiology Diagnoses Multiple joint pain Arthralgia, unspecified joint Procedures MRI Hand (Left) Clay Cavazos MD Phone: tel: fax: Referral ID Status Reason Start Date Expiration Date Visits Re quested Visits Authorized [id number] Closed 01/03/2020 03/06/2020 1 1 Encounter Details Date Type Department Care Team (Latest Contact Info) Description 01/04/2020 Transcribe Orders Virtual Department [address] [place] [address] Clay Cavazos MD [address] [place] [address] Multiple joint pain (Primary Dx); Arthralgia, unspecified [...] arthritis or other explanation of pain. POS [id number] Narrative 01/26/2020 8:20 AM EDT TECHNIQUE: 1.5 [...] tenosynovitis,arthritis or other explanation of pain. POS [id number] Clay Cavazos MD IMG MR EXTREMITY Final [...] joint documented in this encounter Care Teams Mounter Flutes And Piccolos Relationship Specialty Start Date End Date Edmund Cope MD [email or web address] PCP - General Internal Medicine 05/16/17 01/07/20 Edmund Cope MD PCP - General Internal Medicine 01/08/20 02/14/20 Shannon Garcia, RICARDO [address] [place] [address] [email or web address] PCP - General Family Medicine 02/15/20 08/12/20 Carey Boyd PA [address] [place] [address] PCP - General Java Engineer 08/13/20 Edmund Cope MD [address] [place] [address] Insurance Assigned Provider 09/19/19 04/19/20 Regulo Lundberg MD [address] [place] [address] 9[address] Insurance Assigned Provider 04/19/20 09/20/20 Natasha Cerrato, FRITZ [address] [place] [address] PHCM Cheese Weigher 08/14/20 08/31/20 Shanda Wilkinson MD [address] [place] [address] Insurance Assigned Provider 09/20/20 11/16/20 Regulo Lundberg MD [address] [place] [address] [email or web address] Insurance Assigned Provider 11/16/20 04/18/22 Shanda Wilkinson MD [address] [place] [address] [email or web address] Insurance Assigned Provider 04/18/22 01/18/23 Shanda Wilkinson MD [address] [place] [address] [email or web address] Insurance Assigned Provider 04/18/22 02/19/23 documented as of this encounter Additional Source Comments The information contained in this document represents components of the legal health record. It is not the complete legal health record.[facility]
--- OUTSIDE RECORDS SUMMARY | 2025-03-26 11:57 | XMS_ITS | Encounter Summary ---
Author Organization [facility] Address [address] [facility] [address] [place] [address] Phone Care Team Providers Care Clinical Informatics Director Name Role Phone Edmund Cope MD Primary Care Provider + Edmund Cope MD Unavailable [phone] Edmund Cope MD Primary Care Provider [...] st Contact Info) Description 11/14/2019 Procedure Pass [facility], Ct Scan - [facility] [address] [place], [place] [phone] Social History Tobacco Use Types Packs/Day Years [...] on filedocumented in this encounter Care Teams Clinical Informatics Director Relationship Specialty Start Date End Date Edmund Cope MD [email or web address] PCP - General Internal Medicine 05/16/17 01/07/20 Edmund Cope MD [email or web address] PCP - General Internal Medicine 01/08/20 02/14/20 Shannon Garcia NP [address] [place] [address] [email or web address] PCP - General Family Medicine 02/15/20 08/12/20 Carey Boyd PA [address] [place] [address] PCP - General Crib Clerk 08/13/20 Edmund Cope MD [address] [place] [address] [email or web address] Insurance Assigned Provider 09/19/19 04/19/20 Regulo Lundberg MD [address] [place] [address] [email or web address] Insurance Assigned Provider 04/19/20 09/20/20 Natasha Cerrato, RN [address] [place] [address] [facility] Resourcing Consultant 08/14/20 08/31/20 Shanda Wilkinson MD [address] [place] [address] [email or web address] Insurance Assigned Provider 09/20/20 11/16/20 Regulo Lundberg MD [address] [place] [address] [email or web address] Insurance Assigned Provider 11/16/20 04/18/22 Shanda Wlikinson MD [address] [place] [address] [email or web address] Insurance Assigned Provider 04/18/22 01/18/23 Shanda Wilkinson MD [address] [place] [address] [email or web address] Insurance Assigned Provider 04/18/22 02/19/23 documented as of this encounter Additional Source Comments The information contained in this document represents components of the legal health record. It is not the complete legal health record.[facility]
--- OUTSIDE RECORDS SUMMARY | 2025-03-26 11:57 | XMS_ITS | Encounter Summary ---
Author Organization [facility] Address [address] [employer] [facility] [address] [place] [address] Phone Care Team Providers Care Hearing Aid Mechanic Name Role Phone Edumnd Cope MD Primary Care Provider + Edmund [...] Treat Guillermo Pineda MD Phone: tel: fax: [email or web address] [address] [place] [address] Phone: tel: Referral ID Status Reason Start Date Expiration Date Visits Re quested Visits Authorized [id number] Closed 12/06/2019 06/12/2020 20 20 Encounter Details Date Type Department Care Team (Latest Contact Info) Description 12/06/2019 Transcribe Orders [facility] Rehabilitation Services [address] [place] [address] Guillermo Pineda MD [address] [facility] 2ND [place]OR [place] [address] [email or web address] Encounter for rehabilitation (Primary Dx) [...] Diagnoses Orde r Schedule Ambulatory referral to [facility] Physical Therapy Outpatient Referral Routine Encounter for rehabilitation Ordered: 12/06/2019 documented as of this encounter Visit Diagnoses Diagnosis Encounter for rehabilitation- Primary documented in this encounter Care Teams Hearing Aid Mechanic Relationship Specialty Start Date End Date Edmund Cope MD PCP - General Internal Medicine 05/16/17 01/07/20 Edmund Cope MD PCP - General Internal Medicine 01/08/20 02/14/20 Shannon Garcia NP [address] [place] [address] [email or web address] PCP - General Family Medicine 02/15/20 08/12/20 Carey Boyd PA [address] [place] [address] PCP - General Ged Instructor 08/13/20 Edmund Cope MD [address] [place] [address] [email or web address] Insurance Assigned Provider 09/19/19 04/19/20 Regulo Lundberg MD [address] [place] [address] Insurance Assigned Provider 04/19/20 09/20/20 Natasha Cerrato, FRITZ [address] [place] [address] PHCM Victim Witness Administrator 08/14/20 08/31/20 Shanda Wilkinson MD [address] [place] [address] 18487 Insurance Assigned Provider 09/20/20 11/16/20 Regulo Lundberg MD [address] [place] [address] 56271 Insurance Assigned Provider 11/16/20 04/18/22 Shanda Wilkinson MD [address] [place] [address] [email or web address] Insurance Assigned Provider 04/18/22 01/18/23 Shanda Wilkinson MD [address] [place] [address] [email or web address] Insurance Assigned Provider 04/18/22 02/19/23 documented as of this encounter Additional Source Comments The information contained in this document represents components of the legal health record. It is not the complete legal health record.[facility]
--- OUTSIDE RECORDS SUMMARY | 2025-03-26 11:57 | XMS_ITS | Encounter Summary ---
Author Organization [facility] Address [address] [employer] [facility] [address] [place] [address] Phone Care Team Providers Care It Program Manager Name Role Phone Edmund Cope MD Primary Care Provider + Edmund Cope MD Unavailable [phone] Edmund Cope MD Primary Care Provider + Shannon Garcia NP Primary Care Provid er + Regulo Lundberg MD Unavailable + Carey Boyd Primary Care Provider + Natasha Cerrato RN Unavailable Shanda Wilkinson MD Unavailable + Regulo Lundberg MD Unavailable + Shanda Wilkinson MD Unavailable + Shanda Wilkinson MD Unavailable [phone] Encounter Details Date Type Department Care Team (Late st Contact Info) Description 11/20/2019 Procedure Pass [facility] [address] [place] [address] Social History Tobacco Use Types [...] on filedocumented in this encounter Care Teams It Program Manager Relationship Specialty Start Date End Date Edmund Cope MD [email or web address] PCP - General Internal Medicine 05/16/17 01/07/20 Edmund Cope MD [email or web address] PCP - General Internal Medicine 01/08/20 02/14/20 Shannon Garcia NP [address] [place] [address] [email or web address] PCP - General Family Medicine 02/15/20 08/12/20 Carey Boyd PA [address] [place] [address] PCP - General Boat Ride Operator 08/13/20 Edmund Cope MD [address] [place] [address] [email or web address] Insurance Assigned Provider 09/19/19 04/19/20 Regulo Lundberg MD [address] [place] [address] [email or web address] Insurance Assigned Provider 04/19/20 09/20/20 Natasha Cerrato, FRITZ [address] [place] [address] [facility] Outdoor Studies Professor 08/14/20 08/31/20 Shanda Wilkinson MD [address] [place] [address] Insurance Assigned Provider 09/20/20 11/16/20 Regulo Lundberg MD [address] [place] [address] [email or web address] Insurance Assigned Provider 11/16/20 04/18/22 Shanda Wilkinson MD [address] [place] [address] Insurance Assigned Provider 04/18/22 01/18/23 Shanda Wilkinson MD [address] [place] [address] 6[address] Insurance Assigned Provider 04/18/22 02/19/23 documented as of this encounter Additional Source Comments The information contained in this document represents components of the legal health record. It is not the complete legal health record.[facility]
--- OUTSIDE RECORDS SUMMARY | 2025-03-26 11:57 | XMS_ITS | Encounter Summary ---
Author Organization [facility] Address [address] [employer] [facility] [address] [place] [address] Phone Care Team Providers Care Records Custodian Name Role Phone Edmund Cope MD Unavailable [phone] Edmund Cpoe MD Primary Care Provider [phone] Shannon Garcia NP Primary Care Provid er Regulo Lundberg MD Unavailable [phone] Carey Boyd Primary Care Provider [phone] Natasha Cerrato RN Unavailable Shanda Wilkinson MD Unavailable [phone] Regulo Lundberg MD Unavailable [phone] Shanda Wilkinson MD Unavailable [phone] Shanda Wilkinson MD Unavailable [phone] Encounter Details Date Type Department Care Team (Late st Contact Info) Description 01/15/2020 Ancillary Orders [facility],Outside Imaging [address] [place], [place] [phone] System, Provider Not In, [facility] [employer] [address] [address] Social History Tobacco Use Types Packs/Day Years [...] on filedocumented in this encounter Care Teams Records Custodian Relationship Specialty Start Date End Date Edmund Cope MD [address] [place] [address] [email or web address] PCP - General Internal Medicine 01/08/20 02/14/20 Shannon Garcia NP [address] [place] [address] [email or web address] PCP - General Family Medicine 02/15/20 08/12/20 Carey Boyd PA [address] [place] [address] PCP - General Drag Seiner 08/13/20 Edmund Cope MD [address] [place] [address] Insurance Assigned Provider 09/19/19 04/19/20 Regulo Lundberg MD [address] [place] [address] 48551 Insurance Assigned Provider 04/19/20 09/20/20 Natasha Cerrato, RN [address] [place] [address] [facility] Data Conversion Operator 08/14/20 08/31/20 Shanda Wilkinson MD [address] [place] [address] 73570 Insurance Assigned Provider 09/20/20 11/16/20 Regulo Lundberg MD [address] [place] [address]29 Insurance Assigned Provider 11/16/20 04/18/22 Shanda Wilkinson MD [address] [place] [address] [phone] Insurance Assigned Provider 04/18/22 01/18/23 Shanda Wilkinson MD [address] [place] [address] Insurance Assigned Provider 04/18/22 02/19/23 documented as of this encounter Additional Source Comments The information contained in this document represents components of the legal health record. It is not the complete legal health record.[facility]
--- OUTSIDE RECORDS SUMMARY | 2025-03-26 11:57 | XMS_ITS | Encounter Summary ---
Author Organization [facility] Address [address] [facility] [address] [place] [address] Phone Care Team Providers Care Slab Installer Name Role Phone Regulo Lundberg MD Unavailable Carey Boyd Primary Care Provider [phone] Shanda Wilkinson MD Unavailable [phone] Regulo Lundberg MD Unavailable Shanda Wilkinson MD Unavailable Shanda Wilkinson MD Unavailable Reason for Referral * Physical Therapy (Urgent) - Closed Specialty Diagnoses / Procedures Referred By Meche yuan Referred To Contact Physical Therapy Diagnoses Encounter for rehabilitation Left Ankle Procedures Evalaute & Treat Guillermo Pineda MD Phone: tel: fax: [email or web address]:[email or web address] [facility] [address] [place] [address] Phone: tel: Referral ID Status Reason Start Date Expiration Date Visits Re quested Visits Authorized [id number] Closed 09/08/2020 12/04/2020 17 17 Encounter Details Date Type Department Care Team (Latest Contact Info) Description 09/08/2020 Transcribe Orders [facility] Rehabilitation Services [address] [place] [address] Guillermo Pineda MD [address] [facility] 2ND [place] [address] [email or web address] Encounter for rehabilitation (Primary Dx) [...] Diagnoses Orde r Schedule Ambulatory referral to [facility] Physical Therapy Outpatient Referral Routine Encounter for rehabilitation Ordered: 09/08/2020 documented as of this encounter Visit Diagnoses Diagnosis Encounter for rehabilitation- Primary documented in this encounter Care Teams Slab Installer Relationship Specialty Start Date End Date Carey Boyd PA [address] [place] [address] PCP - General Pipelayer 08/13/20 Regulo Lundberg MD [address] [place] [address] Insurance Assigned Provider 04/19/20 09/20/20 Shanda Wilkinson MD [address] [place] [address] [email or web address] Insurance Assigned Provider 09/20/20 11/16/20 Regulo Lundberg MD [address] [place] [address] [email or web address] Insurance Assigned Provider 11/16/20 04/18/22 Shanda Wilkinson MD [address] [place] [address] [email or web address] Insurance Assigned Provider 04/18/22 01/18/23 Shanda Wilkinson MD [address] [place] [address] [email or web address] Insurance Assigned Provider 04/18/22 02/19/23 documented as of this encounter Additional Source Comments The information contained in this document represents components of the legal health record. It is not the complete legal health record.[facility]
--- OUTSIDE RECORDS SUMMARY | 2025-03-26 11:58 | XMS_ITS | Encounter Summary ---
Author Organization [facility] Address [address] [facility] [address] [place] [address] Phone Care Team Providers Care Superintendent Name Role Phone Edmund Cope MD Primary [...] MD Unavailable + Shanda Wilkinson MD Unavailable [phone] Encounter Details Date Type Department Care Team (Late st Contact Info) Description 05/13/2017 Ancillary Orders Virtual Department [address] [place], [place] [phone] Carey Boyd PA [address] [place] [address] [place] [id number] Right shoulder pain, unspecified chronicity Social History [...] be due to mild bursitis. POS - [id number] Narrative 05/19/2017 10:31 AM EST HISTORY: Pain, [...] be due to mild bursitis. POS - [id number] Carey Boyd [place] IMG MR EXTREMITY Final Res ult documented in this encounter Visit Diagnoses Diagnosis Right shoulder pain, unspecified chronicity Right shoulder pain, unspecified chronicity documented in this encounter Care Teams Superintendent Relationship Specialty Start Date End Date Edmund Cope MD PCP - General Internal Medicine 05/16/17 01/07/20 Edmund Cope MD PCP - General Internal Medicine 01/08/20 02/14/20 Shannon Garcia NP [address] [place] [address] [email or web address] PCP - General Family Medicine 02/15/20 08/12/20 Carey Boyd PA [address] [place] [address] PCP - General Core Maker 08/13/20 Edmund Cope MD [address] [place] [address] [email or web address] Insurance Assigned Provider 10/14/18 03/24/19 Edmund Cope MD [address] [place] [address] [email or web address] Insurance Assigned Provider 09/19/19 04/19/20 Regulo Lundberg MD [address] [place] [address] [email or web address] Insurance Assigned Provider 04/19/20 09/20/20 Natasha Cerrato RN [address] [place] [address] [email or web address] [employer] 08/14/20 08/31/20 Shanda Wilkinson MD [address] [place] [address] [email or web address] Insurance Assigned Provider 09/20/20 11/16/20 Regulo Lundberg MD [address] [place] [address] [email or web address] Insurance Assigned Provider 11/16/20 04/18/22 Shanda Wilkinson MD [address] [place] [address] [email or web address] Insurance Assigned Provider 04/18/22 01/18/23 Shanda Wilkinson MD [address] [place] [address] [email or web address] Insurance Assigned Provider 04/18/22 02/19/23 documented as of this encounter Additional Source Comments The information contained in this document represents components of the legal health record. It is not the complete legal health record.[facility]
--- OUTSIDE RECORDS SUMMARY | 2025-03-26 11:58 | XMS_ITS | Encounter Summary ---
Author Organization [facility] Address [address] [facility] [address] [place] [address] Phone Care Team Providers Care Briquette Machine Operator Helper Name Role Phone Carey Boyd Primary Care Provider + [phone] Regulo Lundberg MD Unavailable [phone] Shanda Wilkinson MD Unavailable [phone] Shanda Wilkinson MD Unavailable [phone] Encounter Details Date Type Department Care Team (Late st Contact Info) Description 01/27/2021 Procedure Pass [facility] [address] [place] [address] Social History Tobacco Use Types [...] on filedocumented in this encounter Care Teams Briquette Machine Operator Helper Relationship Specialty Start Date End Date Carey Boyd PA [address] [place] [address] PCP - General Cone Runner 08/13/20 Regulo Lundberg MD [address] [place] [address] [email or web address] Insurance Assigned Provider 11/16/20 04/18/22 Shanda Wilkinson MD [address] [place] [address] Insurance Assigned Provider 04/18/22 01/18/23 Shanda Wilkinson MD [address] [place] [address] Insurance Assigned Provider 04/18/22 02/19/23 documented as of this encounter Additional Source Comments The information contained in this document represents components of the legal health record. It is not the complete legal health record.[facility]
--- OUTSIDE RECORDS SUMMARY | 2025-03-26 11:58 | XMS_ITS | Encounter Summary ---
Author Organization [facility] Address [address] [facility] [address] [place] [address] Phone Care Team Providers Care Industrial Relations Manager Name Role Phone Shannon Garcia NP Primary Care Provid er Regulo Lundberg MD Unavailable [phone] Carey Boyd Primary Care Provider [phone] Natasha Cerrato RN Unavailable Shanda Wilkinson MD Unavailable Regulo Lundberg MD Unavailable [phone] Shanda Wilkinson MD Unavailable [phone] Shanda Wilkinson MD Unavailable [phone] Encounter Details Date Type Department Care Team (Late st Contact Info) Description 05/15/2020 Procedure Pass [facility] [address] [place], [place] [phone] Social History Tobacco Use Types Packs/Day Years [...] on filedocumented in this encounter Care Teams Industrial Relations Manager Relationship Specialty Start Date End Date Shannon Garcia NP [address] [place] [address] [email or web address] PCP - General Family Medicine 02/15/20 08/12/20 Carey Boyd PA [address] [place] [address] PCP - General Work Car Operator 08/13/20 Regulo Lundberg MD [address] [place] [phone] Insurance Assigned Provider 04/19/20 09/20/20 Natasha Cerrato, FRITZ [address] [place] [phone] PHCM Sole Molder 08/14/20 08/31/20 Shanda Wilkinson MD [address] [place] [phone] Insurance Assigned Provider 09/20/20 11/16/20 Regulo Lundberg MD [address] [place] [address] [email or web address] Insurance Assigned Provider 11/16/20 04/18/22 Shanda Wilkinson MD [address] [place] [address] [email or web address] Insurance Assigned Provider 04/18/22 01/18/23 Shanda Wilkinson MD [address] [place] [address] [email or web address] Insurance Assigned Provider 04/18/22 02/19/23 documented as of this encounter Additional Source Comments The information contained in this document represents components of the legal health record. It is not the complete legal health record.[facility]
--- OUTSIDE RECORDS SUMMARY | 2025-03-26 11:58 | XMS_ITS | Encounter Summary ---
Author Organization [facility] Address [address] [facility] [address] [place] [address] Phone Care Team Providers Care Support Team Member Name Role Phone Edmund Cope MD Primary [...] MD Unavailable + Shanda Wilkinson MD Unavailable [phone] Encounter Details Date Type Department Care Team (Late st Contact Info) Description 11/15/2018 Procedure Pass [facility], [address] [phone] Social History Tobacco Use Types Packs/Day Years [...] on filedocumented in this encounter Care Teams Support Team Member Relationship Specialty Start Date End Date Edmund Cope MD [email or web address] PCP - General Internal Medicine 05/16/17 01/07/20 Edmund Cope MD [email or web address] PCP - General Internal Medicine 01/08/20 02/14/20 Shanonn Garcia NP [address] [place] [address] [email or web address] PCP - General Family Medicine 02/15/20 08/12/20 Carey Boyd PA [address] [place] [address] PCP - General Asphalt Screed Operator 08/13/20 Edmund Cope MD [address] [place] [address] [email or web address] Insurance Assigned Provider 10/14/18 03/24/19 Edmund Cope MD [address] [place] [address] [email or web address] Insurance Assigned Provider 09/19/19 04/19/20 Regulo Lundberg MD [address] [place] [address] [email or web address] Insurance Assigned Provider 04/19/20 09/20/20 Natasha Cerrato RN [address] [place] [address] [email or web address] Web Ui [email or web address] Engineer 08/14/20 08/31/20 Shanda Wilkinson MD [address] [place] [address] [email or web address] Insurance Assigned Provider 09/20/20 11/16/20 Regulo Lundberg MD [address] [place] [address] [email or web address] Insurance Assigned Provider 11/16/20 04/18/22 Shanda Wilkinson MD [address] [place] [address] [email or web address] Insurance Assigned Provider 04/18/22 01/18/23 Shanda Wilkinson MD [address] [place] [address] [email or web address] Insurance Assigned Provider 04/18/22 02/19/23 documented as of this encounter Additional Source Comments The information contained in this document represents components of the legal health record. It is not the complete legal health record.[facility]
--- OUTSIDE RECORDS SUMMARY | 2025-03-26 11:58 | XMS_ITS | Encounter Summary ---
Author Organization [facility] Address [address] [employer] [facility] [address] [place] [address] Phone Care Team Providers Care Film Critic Name Role Phone Edmund Cope MD Primary Care Provider + Edmund Cope MD Unavailable + [phone] Edmund Cope MD Unavailable + [phone] Edmund Cope MD Primary Care Provider + hSannon Garcia NP Primary Care Provid er + Regulo Lundberg MD Unavailable + Carey Boyd Primary Care Provider + Natasha Cerrato RN Unavailable Shanda Wilkinson MD Unavailable + Regulo Lundberg MD Unavailable + Shanda Wilkinson MD Unavailable + Shanda Wilkinson MD Unavailable [phone] Encounter Details Date Type Department Care Team (Late st Contact Info) Description 08/09/2018 Ancillary Orders Virtual Department [address] [place], [place] [phone] Aniya Jimenez MD [address] [facility] [address] [place] [address] Abnormal involuntary movement Social History Tobacco Use [...] Modality EEG Narrative 08/14/2018 3:34 PM EST [facility] ELECTROENCEPHALOGRAPHY (EEG) LAB INTRODUCTION: The patient [...] persistent focal asymmetries occurred. MD Sameer Berrios [facility] Aniya Jimenez MD NEUROLOGY ORDERABLES Fi nal Result documented in this encounter Visit Diagnoses Diagnosis Abnormal involuntary movement Abnormal involuntary movements Abnormal involuntary movement Abnormal involuntary movements documented in this encounter Care Teams Film Critic Relationship Specialty Start Date End Date Edmund Cope MD [email or web address] PCP - General Internal Medicine 05/16/17 01/07/20 Edmund Cope MD [email or web address] PCP - General Internal Medicine 01/08/20 02/14/20 Shannon Garcia NP [address] [place] [phone] [email or web address] PCP - General Family Medicine 02/15/20 08/12/20 Carey Boyd PA [address] [place] [address] PCP - General Border Patrol Officer 08/13/20 Edmund Cope MD [address] [place] [address] [email or web address] Insurance Assigned Provider 10/14/18 03/24/19 Edmund Cope MD [address] [place] [address] [email or web address] Insurance Assigned Provider 09/19/19 04/19/20 Regulo Lundberg MD [address] [place] [address] [email or web address] Insurance Assigned Provider 04/19/20 09/20/20 Natasha Cerrato, RN [address] [place] [address] [email or web address] [facility] Hand Tube Bender 08/14/20 08/31/20 Shanda Wilkinson MD [address] [place] [address] [email or web address] Insurance Assigned Provider 09/20/20 11/16/20 Regulo Lundberg MD [address] [place] [address] [email or web address] Insurance Assigned Provider 11/16/20 04/18/22 Shanda Wilkinson MD [address] [place] [address] Insurance Assigned Provider 04/18/22 01/18/23 Shanda Wilkinson MD [address] [place] [address] [email or web address] Insurance Assigned Provider 04/18/22 02/19/23 documented as of this encounter Additional Source Comments The information contained in this document represents components of the legal health record. It is not the complete legal health record.[facility]
--- OUTSIDE RECORDS SUMMARY | 2025-03-26 11:58 | XMS_ITS | Encounter Summary ---
Author Organization [facility] Address [address] [facility] [address] [place] [address] Phone Care Team Providers Care Salesman/Owner Name Role Phone Carey Boyd Primary Care Provider Regulo Lundberg MD Unavailable [phone] Shanda Wilkinson MD Unavailable [phone] Shanda Wilkinson MD Unavailable [phone] Reason for Referral * Physical Therapy (Routine) - Closed Specialty Diagnoses / Procedures Referred By Meche t Referred To Contact Physical Therapy Diagnoses Encounter for rehabilitation Shannon Garcia NP [address] [place] [address] Phone: tel: fax: [email or web address] [facility] [address] [place] [address] Phone: tel: Referral ID Status Reason Start Date Expiration Date Visits Re quested Visits Authorized [id number] Closed 02/13/2021 02/13/2022 1 1 Encounter Details Date Type Department Care Team (Latest Contact Info) Description 02/13/2021 Transcribe Orders [facility] [address] [place] [address] Shannon Garcia NP [address] [place] [address] [place] [phone] [email or web address] Encounter for rehabilitation (Primary Dx) Social History [...] Diagnoses Orde r Schedule Ambulatory referral to [facility] Physical Therapy Outpatient Referral Routine Encounter for rehabilitation Ordered: 02/13/2021 documented as of this encounter Visit Diagnoses Diagnosis Encounter for rehabilitation- Primary documented in this encounter Care Teams Salesman/Owner Relationship Specialty Start Date End Date Carey Boyd PA [address] [place] [address] PCP - General Sports Medicine [place] 08/13/20 Regulo Lundberg MD [address] [place] [phone] Insurance Assigned Provider 11/16/20 04/18/22 Shanda Wilkinson MD [address] [place] [phone] Insurance Assigned Provider 04/18/22 01/18/23 Shanda Wilkinson MD [address] [place] [address] [email or web address] Insurance Assigned Provider 04/18/22 02/19/23 documented as of this encounter Additional Source Comments The information contained in this document represents components of the legal health record. It is not the complete legal health record.[facility]
--- OUTSIDE RECORDS SUMMARY | 2025-03-26 11:58 | XMS_ITS | Clinical Summary ---
Author Organization [facility] Address [address] [facility] [address] [place] [address] Phone Care Team Providers Care Envelope Folding Machine Adjuster Name Role Phone Carey Boyd Primary Care Provider [phone] Allergies Active Allergy Reactions Criticality Noted Date [...] this topic Medical Devices Implanted Type Area Application Administrator Device Identifier Shelf Expiration Date Model / Serial / Lot Wilson Suture 2 2.3mm 2strand Force Fiber Iconix Intellibraid -Order In Multiples Of 5 - [id number] Implanted:Qty: 3 on 07/07/2017 by Vernon Moses DO at [facility] [place] Right: Shoulder [employer] 11/11/2018 [id number] / / [id number] Screw Bone 3.5x14mm Cortex Self Tapping Fully Threaded Hex Head Ss - [id number] Implanted:Qty: 1 on 11/20/2019 by Guillermo Pineda MD at [facility] Left: Ankle SYNTHES 204.814 / / AUTO#3 LOAD #1 Bone Plate 141x3.5mm 12 Hole Tubular One Third With Collar Lcp Ss - [id number] Implanted:Qty: 1 on 11/20/2019 by Guillermo Pineda MD at [facility] Left: Ankle SYNTHES 241.421 / / AUTO#3 LOAD #1 Screw Bone 2.7x18mm Cortical Self Tapping Fully Threaded Hex Head Ss Bx/1ea - [id number] Implanted:Qty: 1 on 11/20/2019 by Guillermo Pineda MD at [facility] Left: Ankle SYNTHES 202.818 / / AUTO#3 LOAD #1 Screw Bone 2.7x20mm Cortical Self Tapping Fully Threaded Hex Head Ss - [id number] Implanted:Qty: 1 on 11/20/2019 by Guillermo Pineda MD at [facility] Left: Ankle SYNTHES 202.820 / / AUTO#3 LOAD #1 Screw Bone 12x3.5mm Compression Ss Locking Self Tapping Full Thread T15 Stardrive Recess - [id number] Implanted:Qty: 1 on 11/20/2019 by Guillermo Pineda MD at [facility] Left: Ankle SYNTHES 212.102 / / AUTO#3 LOAD #1 Screw Bone 3.5x12mm Cortex Self Tapping Fully Threaded Hex Head Ss - [id number] Implanted:Qty: 2 on 11/20/2019 by Guillermo Pineda MD at [facility] Left: Ankle SYNTHES 204.812 / / AUTO#3 LOAD #1 Screw Bone 3.5x45mm Cortex Self Tapping Fully Threaded Hex Head Ss - [id number] Implanted:Qty: 1 on 11/20/2019 by Guillermo Pineda MD at [facility] Left: Ankle SYNTHES 204.845 / / AUTO#3 LOAD #1 Screw Bone 3.5x50mm Cortex Ss Self Tapping Hexagonal Socket - [id number] Implanted:Qty: 2 on 11/20/2019 by Guillermo Pineda MD at [facility] Left: Ankle SYNTHES 204.850 / / AUTO#3 LOAD #1 Washer Bone 7.0mm Sm Screw Cannulated Ss - Ssterilizer 4, Load 3: Sterilized 2020 Implanted:Qty: 2 on 08/25/2020 by Guillermo Pineda MD at [facility] Left: Foot SYNTHES 219.98 / STERILIZER 4, LOAD 3: STERILIZED 2020 / Screw Bone 30x3.5mm Cannulated Ss Full Thread Hexagonal Socket Flat Head - Discontinued Per Supplier - Ssterilizer 4, Load 3: Sterilized 2020 Implanted:Qty: 1 on 08/25/2020 by Guillermo Pineda MD at [facility] Left: Foot SYNTHES 205.230 / STERILIZER 4, LOAD 3: STERILIZED 2020 / Wilson Suture 4.5mm Arthroscopy Reelx Stt Peek Stainless Steel Core Knotless Sharp Tip Expandable Sterile Bx/5ea - [id number] Implanted:Qty: 1 on 07/07/2017 by Vernon Moses DO at [facility] Right: Shoulder [employer] 05/24/2019 [id number] / / [id number] Graft Bone 1.00ml Biocartilage Synthetic Matrix [place] Extracellular Filler Syringe - [id number] Implanted:Qty: 1 on 11/20/2019 by Guillermo Pineda MD at [facility] Left: Ankle [employer] [place] 04/11/2024 [id number] / [id number] / Wilson Suture 2.9mmx12.5 Pushlock Biocomposite Swivelock Vented Bx/5ea - Must Be Ordered In Multiples Of 5's - [id number] Implanted:Qty: 2 on 11/20/2019 by Guillermo Pineda MD at [facility] Left: Ankle AR[employer] 09/10/2021 [id number] / / [id number] Kit 1.5cc Graft Bone Augment Synthetic Bioabsorbable - [id number] Implanted:Qty: 1 on 11/20/2019 by Guillermo Pineda MD at [facility] Right: Ankle [employer] 05/12/2021 [id number] / / [id number] Guidewire Pipo 1.48v202wa Non Threaded - Ssterilizer4, Load3: Sterilized Implanted:Qty: 2 on 08/25/2020 by Guillermo Pineda MD at [facility] Left: Foot SYNTHES 900.721 / STERILIZER4, LOAD3: STERILIZED / 3.5mm Cannulated Screws, Fully Threaded Implanted:Qty: 1 on 08/25/2020 by Guillermo Pineda MD at [facility] Left: Foot 205.224 / / Description:Sterilizer # nicole d #3 August 11, 2020 Explanted Type Area Application Administrator Device Identifier Shelf Expiration Date Model / Serial / Lot Screw Bone 18x3.5mm Compression Ss Locking Self Tapping Full Thread T15 Stardrive Recess - [id number] Implanted:Qty: 1 by Guillermo Pineda MD Explanted:Qty: 1 on 11/20/2019 by Guillermo Pineda MD at [facility] Left: Ankle SYNTHES 212.105 / / AUTO#3 LOAD #1 Screw Bone 3.5x14mm Cortex Self Tapping Fully Threaded Hex Head Ss - [id number] Implanted:Qty: 1 Explanted:Qty: 1 on 11/20/2019 at [facility] Left: Ankle SYNTHES 204.814 / / AUTO#3 LOAD #1 Procedures Procedure Name Priority Date/Time Associated Diagnosis Comments PAP TEST Routine 11/16/2023 12:00 AM EDT from Last 3 Months or Most Recently Relevant to Health Maintenance Results * Pap Test (11/16/2023 12:00 AM EDT) Report [address] [address] Board Attendant: Jennifer Boyer MD STEREOTYPER Cytology Report FINAL DIAGNOSIS A. PAP SMEAR (THIN PREP) CE: SPECIMEN ADEQUACY: Satisfactory for evaluation; transformation zone present. INTERPRETATION: NEGATIVE FOR INTRAEPITHELIAL LESION OR MALIGNANCY. This specimen was analyzed by the automated ThinPrep Imaging System (Klique.) and the selected mishra were reviewed by a death surveys coder. Electronically Signed Out By: NICOLE Herndon(ASCP) The [...] 59, 66, 68) Note: Testing performed by [email or web address] HR-HPV analysis. Clinical correlation is advised. This HPV test was performed at [facility], [address] [place] [address]. This test has been FDA approved for both SurePath and ThinPrep cervical cytology specimens. The accuracy and precision of this test for all other specimen sources has been verified in the Cytopathology Laboratory of the [facility] and has not been cleared or approved by the U.S. Food and Drug Administration. Clinical correlation is advised. CLINICAL HISTORY Date of Last Menstrual Period: 11-06-2023 Other Clinical Conditions: Screening Pap SPECIMEN SOURCE A: PAP SMEAR (THIN PREP) CE Patient Name: IVAN WILKINSON : 1990 (Age: 33) Sex: F Institution: [facility] Location: [facility] Date of Collection: 11/16/2023 Date of Reported: 11/22/2023 13:06 Results to: Shannon Garcia [facility] Final Diagnosis A. PAP SMEAR (THIN PREP) CE: SPECIMEN ADEQUACY: Satisfactory for evaluation; transformation zone present. INTERPRETATION: NEGATIVE FOR INTRAEPITHELIAL LESION OR MALIGNANCY. This specimen was analyzed by the automated ThinPrep Imaging System (Klique.) and the selected mishra were reviewed by a death surveys coder. [facility] Results\Inter pretation A. PAP SMEAR (THIN PREP) CE: Human Papilloma Virus TestNEGATIVE for high-risk Human Papilloma Virus types 16, 18, 45 and the Other high risk probe set (Includes 31, 33, 35, 39, 51, 52, 56, 58, 59, 66, 68)Note: Testing performed by [email or web address] HR-HPV analysis. Clinical correlation is advised. This HPV test was performed at [facility], [address] [place] [address]. This test has been FDA approved for both SurePath and ThinPrep cervical cytology specimens. The accuracy and precision of this test for all other specimen sources has been verified in the Cytopathology Laboratory of the [facility] and has not been cleared or approved by the U.S. Food and Drug Administration. Clinical correlation is advised. [facility] Conversion Type 11/16/2023 10:35 AM EDT Shannon Garcia NP CYTOLOGY ORDERABLES Edited Result - Final [facility] [address] [place] [address] from Last 3 Months or Most Recently Relevant to Health Maintenance Insurance [facility] [place] [address] [place] [address] [place] [address] [place] [address] ACO [facility] ACO [facility] ACO [facility] ACO [facility] INSURANCE Advance Directives For more information, please contact: [phone] (9AM - 5PM Sandra/[facility], Tuesday-Tuesday) * Full Code (Presumed) (Latest Code Status on File) Date Activated Date Inactivated Comments 07/07/2017 8:30 AM 07/07/2017 3:58 PM Care Teams Envelope Folding Machine Adjuster Relationship Specialty Start Date End Date Carey Boyd PA [address] [place] [address] PCP - General Ironing Machine Operator 08/13/20 Additional Source Comments The information contained in this document represents components of the legal health record. It is not the complete legal health record.[facility]
--- OUTSIDE RECORDS SUMMARY | 2025-03-26 11:58 | XMS_ITS | Encounter Summary ---
Author Organization [facility] Address [address] [facility] [address] [place] [address] Phone Care Team Providers Care Insurance Agent Name Role Phone Carey Boyd Primary Care Provider + [phone] Regulo Lundberg MD Unavailable [phone] Shanda Wilkinson MD Unavailable [phone] Shanda Wilkinson MD Unavailable [phone] Encounter Details Date Type Department Care Team (Late st Contact Info) Description 01/19/2022 Procedure Pass [facility], [address] [address] Social History Tobacco Use Types Packs/Day Years [...] on filedocumented in this encounter Care Teams Insurance Agent Relationship Specialty Start Date End Date Carey Boyd PA [address] [place] [address] PCP - General Marketing Manager 08/13/20 Regulo Lundberg MD [address] [place] [address] [email or web address] Insurance Assigned Provider 11/16/20 04/18/22 Shanda Wilkinson MD [address] [place] [address] Insurance Assigned Provider 04/18/22 01/18/23 Shanda Wilkinson MD [address] [place] [address] Insurance Assigned Provider 04/18/22 02/19/23 documented as of this encounter Additional Source Comments The information contained in this document represents components of the legal health record. It is not the complete legal health record.[facility]
--- OUTSIDE RECORDS SUMMARY | 2025-03-26 11:58 | XMS_ITS | Encounter Summary ---
Author Organization [facility] Address [address] [facility] [address] [place] [address] Phone Care Team Providers Care Laundry Housekeeper Name Role Phone Edmund Cope MD Primary [...] laterality System, Provider Not In, [facility] [address] [address] Phone: tel: Referral ID Status Reason Start Date Expiration Date Visits Re quested Visits Authorized [id number] Closed 09/01/2018 09/02/2019 1 1 Encounter Details Date Type Department Care Team (Latest Contact Info) Description 09/01/2018 Transcribe Orders [facility]UR[facility] VIRTUAL DEPARTMENT [address] [place] [phone] Self-Referred, Patient Myoclonus (Primary Dx); Chronic ankle [...] Diagnoses Orde r Schedule Ambulatory referral to [facility] Outpatient Referral Routine Myoclonus Chronic ankle pain, unspecified laterality Ordered: 09/01/2018 documented as of this encounter Visit Diagnoses Diagnosis Myoclonus- Primary Chronic ankle pain, unspecified laterality documented in this encounter Care Teams Laundry Housekeeper Relationship Specialty Start Date End Date Edmund Cope MD [email or web address] PCP - General Internal Medicine 05/16/17 01/07/20 Edmund Cope MD PCP - General Internal Medicine 01/08/20 02/14/20 Shannon Garcia NP [address] [place] [address] [email or web address] PCP - General Family Medicine 02/15/20 08/12/20 Carey Boyd PA [address] [place] [address] PCP - General Chiropractic Assistant 08/13/20 Edmund Cope MD [address] [place] [address] [email or web address] Insurance Assigned Provider 10/14/18 03/24/19 Edmund Cope MD [address] [place] [address] [email or web address] Insurance Assigned Provider 09/19/19 04/19/20 Regulo Lundberg MD [address] [place] [address] [email or web address] Insurance Assigned Provider 04/19/20 09/20/20 Natasha Cerrato RN [address] [place] [address] [email or web address] PHC On Air Director 08/14/20 08/31/20 Shanda Wilkinson MD [address] [place] [address] [email or web address] Insurance Assigned Provider 09/20/20 11/16/20 Regulo Lundberg MD [address] [place] [address] [email or web address] Insurance Assigned Provider 11/16/20 04/18/22 Shanda Wilkinson MD [address] [place] [address] [email or web address] Insurance Assigned Provider 04/18/22 01/18/23 Shanda Wilkinson MD [address] [place] [address] [email or web address] Insurance Assigned Provider 04/18/22 02/19/23 documented as of this encounter Additional Source Comments The information contained in this document represents components of the legal health record. It is not the complete legal health record.[facility]
--- OUTSIDE RECORDS SUMMARY | 2025-03-26 11:58 | XMS_ITS | Encounter Summary ---
Author Organization [facility] Address [address] [facility] [address] [place] [address] Phone Care Team Providers Care Contact Agent Name Role Phone Carey Boyd Primary Care Provider Regulo Lundberg MD Unavailable [phone] Shanda Wilkinson MD Unavailable [phone] Shanda Wilkinson MD Unavailable [phone] Encounter Details Date Type Department Care Team (Late st Contact Info) Description 12/08/2021 Procedure Pass [facility] Interventional X-ray Imaging, [place] [address] [place] [address] Social History Tobacco Use Types Packs/Day Years [...] on filedocumented in this encounter Care Teams Contact Agent Relationship Specialty Start Date End Date Carey Boyd PA [address] [place] [address] PCP - General Gas Usage Meter Clerk 08/13/20 Regulo Lundberg MD [address] [place] [address] [email or web address] Insurance Assigned Provider 11/16/20 04/18/22 Shanda Wilkinson MD [address] [place] [address] Insurance Assigned Provider 04/18/22 01/18/23 Shanda Wilkinson MD [address] [place] [address] Insurance Assigned Provider 04/18/22 02/19/23 documented as of this encounter Additional Source Comments The information contained in this document represents components of the legal health record. It is not the complete legal health record.[facility]
--- OUTSIDE RECORDS SUMMARY | 2025-03-26 11:58 | XMS_ITS | Encounter Summary ---
Author Organization [facility] Address [address] [facility] [address] [place] [address] Phone Care Team Providers Care Media Production Support Manager Name Role Phone Carey Boyd Primary Care Provider + [phone] Regulo Lundberg MD Unavailable [phone] Shanda Wilkinson MD Unavailable [phone] Shanda Wilkinson MD Unavailable [phone] Encounter Details Date Type Department Care Team (Late st Contact Info) Description 12/08/2021 Procedure Pass [facility] MR Imaging, [place] [address] [place] [address] Social History Tobacco Use Types Packs/Day Years [...] on filedocumented in this encounter Care Teams Media Production Support Manager Relationship Specialty Start Date End Date Carey Boyd PA [address] [place] [address] PCP - General Investment Accounting Clerk 08/13/20 Regulo Lundberg MD [address] [place] [address] [email or web address] Insurance Assigned Provider 11/16/20 04/18/22 Shanda Wilkinson MD [address] [place] [address] Insurance Assigned Provider 04/18/22 01/18/23 Shanda Wilkinson MD [address] [place] [address] Insurance Assigned Provider 04/18/22 02/19/23 documented as of this encounter Additional Source Comments The information contained in this document represents components of the legal health record. It is not the complete legal health record.[facility]
--- OUTSIDE RECORDS SUMMARY | 2025-03-26 11:58 | XMS_ITS | Encounter Summary ---
Author Organization [facility] Address [address] [facility] [address] [place] [address] Phone Care Team Providers Care Supervisor Coffee Name Role Phone Edmund Cope MD Primary [...] MD Unavailable + Shanda Wilkinson MD Unavailable +[phone] Encounter Details Date Type Department Care Team (Late st Contact Info) Description 07/07/2017 Procedure Pass [place] Admitting Dept - Virtual Department [address] [place], [place] [id number] Social History Tobacco Use Types Packs/Day Years [...] filedocumented in this encounter Care Teams Supervisor Coffee Relationship Specialty Start Date End Date Edmund Cope MD [email or web address] PCP - General Internal Medicine 05/16/17 01/07/20 Edmund Cope MD [email or web address] PCP - General Internal Medicine 01/08/20 02/14/20 Shannon Garcia NP [address] [place] [address] [email or web address] PCP - General Family Medicine 02/15/20 08/12/20 Carey Boyd PA [address] [place] [address] PCP - General Spar Machine Operator Helper 08/13/20 Edmund Cope MD [address] [place] [address] [email or web address] Insurance Assigned Provider 10/14/18 03/24/19 Edmund Cope MD [address] [place] [address] [email or web address] Insurance Assigned Provider 09/19/19 04/19/20 Regulo Lundberg MD [address] [place] [address] [email or web address] Insurance Assigned Provider 04/19/20 09/20/20 Natasha Cerrato RN [address] [place] [address] [email or web address] Machine Molder Squeeze 08/14/20 08/31/20 Shanda Wilkinson MD [address] [place] [address] [email or web address] Insurance Assigned Provider 09/20/20 11/16/20 Regulo Lundberg MD [address] [place] [address] [email or web address] Insurance Assigned Provider 11/16/20 04/18/22 Shanda Wilkinson MD [address] [place] [address] [email or web address] Insurance Assigned Provider 04/18/22 01/18/23 Shanda Wilkinson MD [address] [place] [address] [email or web address] Insurance Assigned Provider 04/18/22 02/19/23 documented as of this encounter Additional Source Comments The information contained in this document represents components of the legal health record. It is not the complete legal health record.[facility]
--- OUTSIDE RECORDS SUMMARY | 2025-03-26 11:58 | XMS_ITS | Encounter Summary ---
Author Organization [facility] Address [address] [facility] [address] [place] [address] Phone Care Team Providers Care Public Information Relations Manager Name Role Phone Edmund Cope MD Primary Care Provider + Edmund Cope MD Unavailable + [phone] Edmund Cope MD Unavailable + [phone] Edmund Cope MD Primary Care Provider + Shannon Garcia NP Primary Care Provid er + Regulo Lundberg MD Unavailable + Carey Boyd Primary Care Provider + Natasha Cerrato RN Unavailable Shanda Wilkinson MD Unavailable + Regulo Lundberg MD Unavailable + Shadna Wilkinson MD Unavailable + Shanda Wilkinson MD Unavailable +[phone] Encounter Details Date Type Department Care Team (Latest Contact Info) Description 01/24/2018 Transcribe Orders Virtual Department [address] [place] [address] Guillermo Villar MD [address] [place] [address] [email or web address] Elbow pain, left (Primary Dx) Social History [...] arm documented in this encounter Care Teams Public Information Relations Manager Relationship Specialty Start Date End Date Edmund Cope MD [email or web address] PCP - General Internal Medicine 05/16/17 01/07/20 Edmund Cope MD [email or web address] PCP - General Internal Medicine 01/08/20 02/14/20 Shannon Garcia NP [address] [place] [address] [email or web address] PCP - General Family Medicine 02/15/20 08/12/20 Carey Boyd PA [address] [place] [address] PCP - General Universal Grinder Set Up Operator 08/13/20 Edmund Cope MD [address] [place] [address] [email or web address] Insurance Assigned Provider 10/14/18 03/24/19 Edmund Cope MD [address] [place] [address] [email or web address] Insurance Assigned Provider 09/19/19 04/19/20 Regulo Lundberg MD [address] [place] [address] [email or web address] Insurance Assigned Provider 04/19/20 09/20/20 Natasha Cerrato RN [address] [place] [address] [email or web address] Licensed Direct Entry Midwife 08/14/20 08/31/20 Shanda Wilkinson MD [address] [place] [address] [email or web address] Insurance Assigned Provider 09/20/20 11/16/20 Regulo Lundberg MD [address] [place] [address] [email or web address] Insurance Assigned Provider 11/16/20 04/18/22 Shanda Wilkinson MD [address] [place] [address] [email or web address] Insurance Assigned Provider 04/18/22 01/18/23 Shanda Wilkinson MD [address] [place] [address] [email or web address] Insurance Assigned Provider 04/18/22 02/19/23 documented as of this encounter Additional Source Comments The information contained in this document represents components of the legal health record. It is not the complete legal health record.[facility]
--- OUTSIDE RECORDS SUMMARY | 2025-03-26 11:58 | XMS_ITS | Encounter Summary ---
Author Organization [facility] Address [address] [facility] [address] [place] [address] Phone Care Team Providers Care Flight Superintendent Name Role Phone Edmund Cope MD [...] MD Unavailable + Shanda Wilkinson MD Unavailable [phone] Encounter Details Date Type Department Care Team (Late st Contact Info) Description 05/13/2017 Procedure Pass [facility], [address] [id number] Social History Tobacco Use Types Packs/Day Years [...] on filedocumented in this encounter Care Teams Flight Superintendent Relationship Specialty Start Date End Date Edmund Cope MD [email or web address] PCP - General Internal Medicine 05/16/17 01/07/20 Edmund Cope MD [email or web address] PCP - General Internal Medicine 01/08/20 02/14/20 Shannon Garcia NP [address] [place] [address] [email or web address] PCP - General Family Medicine 02/15/20 08/12/20 Carey Boyd PA [address] [place] [address] 32417 PCP - General Bull Gang Supervisor 08/13/20 Edmund Cope MD [address] [place] [address] [email or web address] Insurance Assigned Provider 10/14/18 03/24/19 Edmund Cope MD [address] [place] [address] [phone] Insurance Assigned Provider 09/19/19 04/19/20 Regulo Lundberg MD [address] [place] [address] 71343 Insurance Assigned Provider 04/19/20 09/20/20 Natasha Cerrato, RN [address] [place] [address] [facility] Senior Linux Engineer 08/14/20 08/31/20 Shanda Wilkinson MD [address] [place] [address] 10015 Insurance Assigned Provider 09/20/20 11/16/20 Regulo Lundberg MD [address] [place] [address] 55553 Insurance Assigned Provider 11/16/20 04/18/22 Shanda Wilkinson MD [address] [place] [address] [phone] Insurance Assigned Provider 04/18/22 01/18/23 Shanda Wilkinson MD [address] [place] [address] [phone] Insurance Assigned Provider 04/18/22 02/19/23 documented as of this encounter Additional Source Comments The information contained in this document represents components of the legal health record. It is not the complete legal health record.[facility]
--- OUTSIDE RECORDS SUMMARY | 2025-03-26 11:58 | XMS_ITS | Encounter Summary ---
Author Organization [facility] Address [address] [facility] [address] [place] [address] Phone Care Team Providers Care Nutrient Management Specialist Name Role Phone Carey Boyd Primary Care Provider + [phone] Regulo Lundberg MD Unavailable [phone] Shanda Wilkinson MD Unavailable [phone] Shanda Wilkinson MD Unavailable [phone] Encounter Details Date Type Department Care Team (Late st Contact Info) Description 01/19/2022 Procedure Pass [facility], X-Ray - [facility] [address] [place] [address] Social History Tobacco Use Types Packs/Day Years [...] on filedocumented in this encounter Care Teams Nutrient Management Specialist Relationship Specialty Start Date End Date Carey Boyd PA [address] [place] [address] PCP - General Bridge Operator 08/13/20 Regulo Lundberg MD [address] [place] [address] [email or web address] Insurance Assigned Provider 11/16/20 04/18/22 Shanda Wilkinson MD [address] [place] [phone] Insurance Assigned Provider 04/18/22 01/18/23 Shanda Wlikinson MD [address] [place] [address] Insurance Assigned Provider 04/18/22 02/19/23 documented as of this encounter Additional Source Comments The information contained in this document represents components of the legal health record. It is not the complete legal health record.[facility]
--- OUTSIDE RECORDS SUMMARY | 2025-03-26 11:58 | XMS_ITS | Encounter Summary ---
Author Organization [facility] Address [address] [facility] [address] [place] [address] Phone Care Team Providers Care Seam Finisher Name Role Phone Carey Boyd Primary Care Provider [phone] Shanda Wilkinson MD Unavailable [phone] Encounter Details Date Type Department Care Team (Late st Contact Info) Description 01/24/2023 Procedure Pass [address] [place] [address] Social History Tobacco Use Types Packs/Day Years [...] on filedocumented in this encounter Care Teams Seam Finisher Relationship Specialty Start Date End Date Carey Boyd PA [address] [place] [address] PCP - General Rugby League Footballer 08/13/20 Shanda Wilkinson MD [address] [place] [address] [email or web address] Insurance Assigned Provider 04/18/22 02/19/23 documented as of this encounter Additional Source Comments The information contained in this document represents components of the legal health record. It is not the complete legal health record.[facility]
[2025-03-26 12:11] LABS: Hematocrit 44.3 % (37.0-47.0); Hemoglobin 14.9 g/dl (12.0-16.0); Imm Gran Abs Auto 0.01 X10*3/uL (0.00-0.03); Imm Gran Pct Auto 0.2 % (0.0-0.4); Lymphocytes Absolute Auto 1.3 X10*3/uL (1.2-4.9); Mean Corpuscular HGB Conc 33.6 g/dl (31.0-35.0); Mean Corpuscular Hemoglobin 29.2 pg (27.0-33.0); Mean Corpuscular Volume 86.9 fL (80.0-98.0); NRBC Abs Auto 0.000 X10*3/uL (0.0-0.012); NRBC Pct Auto 0.0 /100WBC (0.0-0.2); Platelet Count 301 X10*3/uL (160-400); Red Blood Count 5.10 X10*6/uL (4.20-5.50); White Blood Count 4.4 X10*3/uL (4.8-10.8)
[2025-03-26 13:00] LABS: Alanine Aminotransferase 19 U/L (0-31); Albumin Level 4.7 g/dL (3.5-5.0); Alkaline Phosphatase 58 U/L (39-117); Anion Gap 10 (12-20); Aspartate Amino Transferase 23 U/L (5-31); Blood Urea Nitrogen 10 mg/dL (9-16); Calcium 9.3 mg/dL (8.4-10.2); Carbon Dioxide 27 mmol/L (22-29); Chloride 108 mmol/L (96-108); Estimated Glomerular Filt Rate > 60; Potassium 3.8 mmol/L (3.3-5.1); Sodium 141 mmol/L (135-145); Total Protein 7.2 g/dL (6.5-8.0)
[2025-03-27 21:29] LABS: Antibody to SS-A Antigen <1.0 NEG AI (<1.0 NEG); Antibody to SS-B Antigen <1.0 NEG AI (<1.0 NEG); SM/Ribonucleoprotein Ab <1.0 NEG AI (<1.0 NEG); Smith Protein <1.0 NEG AI (<1.0 NEG)
[2025-03-29 12:33] LABS: Anti Nuclear Antibody Screen NEGATIVE (NEGATIVE)
[2025-04-03 15:37] LABS: Centromere Protein A Ab <11 SI (<11); Centromere Protein B Ab <11 SI (<11); Fibrillarin Ab <11 SI (<11); PM SCL 100 Ab <11 SI (<11); PM SCL 75 Ab <11 SI (<11); RNA Polymerase III RP11 Ab <11 SI (<11); RNA Polymerase III RP155 Ab <11 SI (<11); SCL-70 Extractable Nuclear Ab <11 SI (<11); Th-To Ab <11 SI (<11); U1 SNRNP RNP 70KD <11 SI (<11); U1 SNRNP RNP A <11 SI (<11); U1 SNRNP RNP C <11 SI (<11)
== END 2025-03-26 10:14 | disposition home or self-care (01) ==
LOC: HO.LAB 10:13
PROVIDERS: Absent Provider Student in an Organized Health Care Education/Training Program; PCP Physician Assistant Medical; Visit Provider Student in an Organized Health Care Education/Training Program
DX: S93.402A Sprain of unspecified ligament of left ankle, initial encounter (principal); M21.072 Valgus deformity, not elsewhere classified, left ankle; M19.072 Primary osteoarthritis, left ankle and foot; M32.9 Systemic lupus erythematosus, unspecified; M35.9 Systemic involvement of connective tissue, unspecified; D68.61 Antiphospholipid syndrome; Z01.84 Encounter for antibody response examination; Z79.899 Other long term (current) drug therapy
CPT/HCPCS: 36415; 73610; 73630; 73650; 80053; 82306; 83516; 84182; 85025; 85597; 85598; 85613; 85652; 85730; 86038; 86140; 86146; 86147; 86160; 86225; 86235

== ENCOUNTER → 2025-03-26 10:18 | Outpatient (BNV) | payer OTHER, SELFPAY | PROVIDERS: Absent Provider Student in an Organized Health Care Education/Training Program; PCP Physician Assistant Medical; Visit Provider Radiology Diagnostic Radiology | DX: M24.672 Ankylosis, left ankle (principal); M20.12 Hallux valgus (acquired), left foot; M79.672 Pain in left foot | CPT/HCPCS: 73610; 73630; 73650 ==

== ENCOUNTER 2025-03-29 08:46 | Outpatient (AMB) | payer OTHER, SELFPAY ==
--- NOTE | 2025-03-29 08:51 | A.OFFVIS_ITS ---
Vital Signs 03/29/25 08:53 Height 5 ft 5 in Weight 150 lb BMI 25.0 Intake Visit Reasons: fu left ankle sprain Intake Note: Ivan is a 34 year old female who presents to the office today for a follow up left ankle sprain. At previous visit X-rays were ordered and pt was recommended to continue use of her AFO brace. Pt states she has seen slight improvement at this time and has no questions or concerns. Allergies scallops Allergy (Unknown, Verified 03/29/25 08:52) Unknown Gabapentin Allergy (Unknown, Uncoded 03/14/25 09:23) neurologic side effects HPI HPI fu left ankle sprain: Details: The patient is a 34-year-old female presenting for 2 and half weeks follow up evaluation of left ankle sprain. She states she has been feeling better and transition from her Cam boot to her str-up ankle brace. She has been doing [id number], stretching, and band exercises. She still complains of pain to both sides of her ankle which radiates proximally. History: The patient notes history of her most recent left ankle sprain that occurred the week of 03/04 after stepping off of her horse. She was seen at the emergency room at [place] and received x-rays which were deemed to be negative for fractures. She was discharged in a cam boot. Patient notes she typically rolls her ankle 1-2 times per week. The patient has undergone multiple imaging studies, including an MRI in 2022, which showed normal findings despite clinical laxity and instability. She states that she has to wear an AFO brace which helped her during her rehab however she has not worn it for a few years. She does not use any ankle support or brace due to them not fitting in her shoes. 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 A tightrope procedure was attempted but failed, leading to a Z lengthening of the fibula with syndesmotic fusion at [facility]. Additionally, the patient sustained a Lisfranc fracture in the same foot during rehabilitation, which was managed with pinning and subsequent hardware removal in 2020. The patient reports persistent pain and weakness in the left big toe joint, exacerbated by activities that require her to push off of her big toe joint, such as lunges and weighted exercises. She attributed to loss of muscle tone and strength under the foot. Last appointment with her previous surgeon Dr. Pineda 02/16/2023 where a repeat MRI showed some concern for medial talar OCD lesion and recommended PT at the time. Surgical History: - 12/2017: Left ankle ORIF with NEOS - 06/2018: Left ankle AMELIE, arthroscopy, syndesmosis tight-rope - 11/20/2019: Left ankle OCD repair with biocartilage (1.25cm x 1.5cm), fibular osteotomy, CP/SPF/Sural nerve decompression, syndesmotic fusion, brostrom repair ATFL/CFL (Arthrex Pushlock Blanchard), peroneal tendon tenosynovectomy. - 08/25/2020: ORIF Left lisfranc fracture with Dr. 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 - Exercise: Engages in activities such as lunges and weighted exercises, rides horses, and plays tennis three times a week [facility] Medical History (Updated 03/29/25 @ 12:26 by Santana Turner DPM) Undifferentiated connective tissue disease Ankle sprain Hyperlipidemia Breast lump Triceps tendon rupture Overweight with body mass index (BMI) of 26 to 26.9 in adult Injury of left elbow Annual physical exam Hyperlipidemia with target low density lipoprotein (LDL) cholesterol less than 100 mg/dL Vitamin D deficiency Small fiber neuropathy Fracture of distal end of left fibula Multiple joint pain Postural orthostatic tachycardia syndrome PTSD (post-traumatic stress disorder) Selective immunoglobulin M deficiency Monoclonal gammopathy Channing's thyroiditis Surgical History S/P hardware removal S/P right rotator cuff repair S/P posterior Bankart repair of right shoulder Family History Paternal Grandfather Malignant carcinoid tumor of lung Mother Thyroid nodule Malignant tumor of thyroid gland Social History Household Members: None Housing: Apartment Patient Tobacco Use Status: Former Tobacco user Tobacco use type: Cigarette service: No Current occupational status: employed Cognitive needs: No Hearing needs: No Vision needs: No Review of Systems Const All systems reviewed & are unremarkable except as noted in HPI and below Physical Exam Vital Signs: BMI result Body Mass Index 25.0 Extrem Other: *Bilateral Lower Extremity Focused Exam Vascular: DP/PT 2/4, CFT<3s to digits, TG warm to cool, improved but mild left lateral ankle edema. No pedal edema. Derm: Mild ecchymosis over the lateral aspect of the ankle, anterior ankle, and dorsal foot. Healed surgical incisions along the medial and lateral ankle. Neuro: Protective sensation grossly intact to bilateral lower extremities. MSK: Left lower extremity: Decreased but moderate tenderness on palpation of the ATFL over the lateral ankle and the lateral gutter. Moderate tenderness along the peroneal tendons posterior retromalleolar fibula radiating proximally. Moderate tenderness retromalleolar medial tibia radiating proximally. Ankle inversion 3:1 bilaterally. Ankle dorsiflexion 0 degrees with the rigid block. On weight-bearing, ankle dorsiflexion -5 degrees closed chain. Mild tenderness on palpation along the tarsometatarsal joints, worse to the 3rd 4th and 5th tarsometatarsal joints. No tenderness on palpation along the medial aspect and plantar aspect of the 1st metatarsal shaft on push-off stance currently. Left 1st Metatarsal-phalangeal joint dorsiflexion 80 degrees. Tracking hallux valgus deformity with prominent medial eminence. No pain on palpation of the sesamoids. Results Reviewed Results Reviewed: 03/26/2025 X-ray left foot 3 views (AP, MO, Lateral) weight-bearing reviewed which shows ossified bone within the 1st interspace between the 1st metatarsal and the 2nd metatarsal base, with no diastasis with the 2nd metatarsal. First tarsometatarsal joint and 3rd tarsometatarsal joint have severe joint space narrowing. Second tarsometatarsal joint has moderate asymmetric joint space narrowing. Miranda's angle appears within normal limits on lateral view. Bone density is within normal limits. Normal anatomy. No evidence of swelling, foreign body, or calcifications. I personally reviewed the imaging and my findings are listed above. 03/26/2025 X-ray left ankle 3 views (AP, Mortise, Lateral) weight-bearing reviewed which shows varus tilt of the ankle joint, talocrural angle of 74 degrees. Syndesmotic fusion with retained screws/foreign body in the tibia at the level of the syndesmosis 2.5 cm from the ankle joint. No significant tibiotalar joint narrowing. Bone density is within normal limits. I personally reviewed the imaging and my findings are listed above. 03/26/2025 X-ray left calcaneus 3 views (Axial, Lateral) weightbearing reviewed which shows approximately 8 degrees of hindfoot varus. Subtalar joint space within normal limits. I personally reviewed the imaging and my findings are listed above. 03/05/2025 X-ray left ankle 3 views (AP, Mortise, Lateral) reviewed which shows no fractures, dislocations, osteochondral defects. Foreign body/partial screw present in the syndesmotic region of the tibia. Synostosis of the tibia and fibula at the level of the syndesmosis. Anatomic alignment of the tibiotalar joint. Mild joint space narrowing of the calcaneocuboid joint. Bone density is within normal limits. No evidence of swelling, foreign body, or calcifications. I personally reviewed the imaging and my findings are listed above. 03/05/2025 X-ray left foot 3 views (AP, Mortise, Lateral) reviewed which shows no fractures, dislocations, osteochondral defects. There is mild diastasis of the 1st and 2nd metatarsal bases, measuring 1.89 mm from medial cuneiform to the 2nd metatarsal base. Moderate joint space narrowing of the 1st , 2nd, and 3rd tarsometatarsal joints. Mild narrowing of the 1st Metatarsal-phalangeal joint with flattening of the medial eminence and mild cystic changes. First metatarsal IM angle is 11. Tibial sesamoid position is 4. I personally reviewed the imaging and my findings are listed above. Assessment & Plan Assessment & Plan (1) Left ankle sprain: Code(s): S93.402A - Sprain of unspecified ligament of left ankle, initial encounter Category: Medical Qualifiers: Encounter type: initial encounter Involved ligament of ankle: anterior talofibular ligament Qualified Code(s): S93.492A - Sprain of other ligament of left ankle, initial encounter Plan: * Reviewed weight-bearing left foot, calcaneus, and ankle x-rays with the patient. * Patient was recommended to decrease her band exercises and perform passive exercises only. * Continue ankle brace for the next 3 weeks. * Discussed that she will likely require a new MRI next visit to rule out partial tendon tear(s) if her symptoms do not improve, given her history of peroneal tendon debridement/repair. * Patient states she scheduled a physical therapy appointment at [facility] [place]. * Follow up in 3 weeks. (2) Arthritis of foot, left: Code(s): M19.072 - Primary osteoarthritis, left ankle and foot Category: Medical Plan: * No further lisfranc diastasis on weight-bearing x-rays. * Discussed that her symptoms for her midfoot and forefoot pain may be related to her Lisfranc joint arthritis versus medial column overload/compensation due to ankle joint equinus. * Discussed treatment options including cortisone injection vs regenerative medicine options (PRP, etc.) for her midfoot arthritis.. * She may eventually require a midfoot fusion. However, discussed risks of further load transfer, most likely to her talo-tarsal joints, if her midfoot is fused. * We will trial a custom foot orthosis with a first ray cut-out for her 1st TMT arthritis. * The patient has hindfoot varus compensation for her ankle valgus. Explained that she is at risk of eventual subtalar joint arthritis, and will likely require a total ankle replacement versus ankle fusion in her future. (3) Ankle ligament laxity: Code(s): M24.273 - Disorder of ligament, unspecified ankle Category: Medical Qualifiers: Laterality: left Qualified Code(s): M24.272 - Disorder of ligament, left ankle Plan: * Recommended eventual lateral ankle ligament reconstruction to decrease how frequently she sprains her ankle. * She will require an MRI for further evaluation. * Due to her history of OCD lesion, she will be recommended an ankle arthroscopy and OCD inspection/possible repair.. * Differential diagnosis includes subtalar joint instability. * Patient will require a new MRI prior to surgical planning if she pursues treatment. * She was otherwise recommended continued use of her AFO brace. Patient states she is unable to use her brace in all of her shoe-wear. (4) Osteochondral defect of talus: Code(s): M95.8 - Other specified acquired deformities of musculoskeletal system Category: Medical Plan: * Lesion size as per her medical records was 1.25cm x 1.5cm * Repeat MRI in 2022 showed signs of persistent OCD * This will be re-evaluated on her next MRI Coding Level of Care Code Est Pt Level 5 (02695) Diagnoses Sprain of anterior talofibular ligament of left ankle, initial encounter S93.492A Encounter type: initial encounter Involved ligament of ankle: anterior talofibular ligament Arthritis of foot, left M19.072 Ligamentous laxity of left ankle M24.272 Laterality: left Osteochondral defect of talus M95.8 Time Spent (min) 55 Comment 35+ minutes of record reviews + XR interpretation
[2025-03-29 08:53] VITALS: BMI 25.0
--- OUTSIDE RECORDS SUMMARY | 2025-03-29 09:13 | XMS_ITS | Encounter Summary ---
Author Organization [facility] Address [address] [facility] [address] [place] [address] Phone Care Team Providers Care Maple Products Maker Name Role Phone Shannon Garcia NP Primary Care Provid er Regulo Lundberg MD Unavailable Carey Boyd Primary Care Provider [phone] Natasha Cerrato RN Unavailable Shanda Wilkinson MD Unavailable [phone] Regulo Lundberg MD Unavailable Shanda Wilkinson MD Unavailable [phone] Shanda Wilkinson MD Unavailable [phone] Encounter Details Date Type Department Care Team (Late st Contact Info) Description 07/30/2020 Procedure Pass [facility] [address] [facility], [address] [place] [address] Social History Tobacco Use Types [...] on filedocumented in this encounter Care Teams Maple Products Maker Relationship Specialty Start Date End Date Shannon Garcia NP [address] [place] [phone] [email or web address] PCP - General Family Medicine 02/15/20 08/12/20 Carey Boyd PA [address] [place] [address] [phone] PCP - General Graphite Disk Assembler 08/13/20 Regulo Lundberg MD [address] [place] [phone] Insurance Assigned Provider 04/19/20 09/20/20 Natasha Cerrato, FRITZ [address] [place] [address] [phone] PHC Music Mixer 08/14/20 08/31/20 Shanda Wilkinson MD [address] [place] [address] [phone] Insurance Assigned Provider 09/20/20 11/16/20 Regulo Lunbderg MD [address] [place] [address] [phone] Insurance Assigned Provider 11/16/20 04/18/22 Shanda Wilkinson MD [address] [place] [address] [email or web address] Insurance Assigned Provider 04/18/22 01/18/23 Shanda Wilkinson MD [address] [place] [address] [email or web address] Insurance Assigned Provider 04/18/22 02/19/23 documented as of this encounter Additional Source Comments The information contained in this document represents components of the legal health record. It is not the complete legal health record.[facility]
--- OUTSIDE RECORDS SUMMARY | 2025-03-29 09:13 | XMS_ITS | Encounter Summary ---
Author Organization [facility] Address [address] [facility] [address] [place] [address] Phone Care Team Providers Care Director Telehealth Name Role Phone Shannon Garcia NP Primary Care Provid er Regulo Lundberg MD Unavailable Carey Boyd Primary Care Provider [phone] Natasha Cerrato RN Unavailable Shanda Wilkinson MD Unavailable Regulo Lundberg MD Unavailable [phone] Shanda Wilkinson MD Unavailable [phone] Shanda Wilkinson MD Unavailable [phone] Encounter Details Date Type Department Care Team (Late st Contact Info) Description 05/28/2020 Procedure Pass [facility] [address] [place], [place] [id number] Social History Tobacco Use Types Packs/Day Years [...] on filedocumented in this encounter Care Teams Director Telehealth Relationship Specialty Start Date End Date Shannon Garcia NP [address] [place] [phone] [email or web address] PCP - General Family Medicine 02/15/20 08/12/20 Carey Boyd PA [address] [place] [address]140 PCP - General Turfgrass Management Professor 08/13/20 Regulo Lundberg MD [address] [place] [address] [phone] Insurance Assigned Provider 04/19/20 09/20/20 Natasha Cerrato, FRITZ [address] [place] [phone] PHCM Bale Stacker 08/14/20 08/31/20 Shanda Wilkinson MD [address] [place] [address] [phone] Insurance Assigned Provider 09/20/20 11/16/20 Regulo Lundberg MD [address] [place] [address] [phone] Insurance Assigned Provider 11/16/20 04/18/22 Shanda Wilkinson MD [address] [place] [address] [email or web address] Insurance Assigned Provider 04/18/22 01/18/23 Shanda Wilkinson MD [address] [place] [address] [email or web address] Insurance Assigned Provider 04/18/22 02/19/23 documented as of this encounter Additional Source Comments The information contained in this document represents components of the legal health record. It is not the complete legal health record.[facility]
--- OUTSIDE RECORDS SUMMARY | 2025-03-29 09:13 | XMS_ITS | Encounter Summary ---
Author Organization [facility] Address [address] [employer] [facility] [address] [place] [address] Phone Care Team Providers Care Boring Mill Operator For Metal Name Role Phone Edmund Cope MD Primary [...] MD Unavailable + Shanda Wilkinson MD Unavailable [phone] Encounter Details Date Type Department Care Team (Latest Contact Info) Description 10/25/2019 Transcribe Orders [facility] [address] [place], [place] [id number] Dalton Leone, 30 [place] [address] [email or web address] Screening for unspecified condition (Primary Dx) Social [...] Primary documented in this encounter Care Teams Boring Mill Operator For Metal Relationship Specialty Start Date End Date Edmund Cope MD [email or web address] PCP - General Internal Medicine 05/16/17 01/07/20 Edmund Cpoe MD [email or web address] PCP - General Internal Medicine 01/08/20 02/14/20 Shannon Garcia NP [address] [place] [address] [email or web address] PCP - General Family Medicine 02/15/20 08/12/20 Carey Boyd PA [address] [place] [address] PCP - General Member Services Coordinator 08/13/20 Edmund Cope MD [address] [place] [address] [email or web address] Insurance Assigned Provider 09/19/19 04/19/20 Regulo Lundberg MD [address] [place] [phone] Insurance Assigned Provider 04/19/20 09/20/20 Natasha Cerrato, RN [address] [place] [address] [facility] Gauge And Weigh Machine Adjuster 08/14/20 08/31/20 Shanda Wilkinson MD [address] [place] [address] Insurance Assigned Provider 09/20/20 11/16/20 Regulo Lundberg MD [address] [place] [phone] Insurance Assigned Provider 11/16/20 04/18/22 Shanda Wilkinson MD [address] [place] [phone] Insurance Assigned Provider 04/18/22 01/18/23 Shanda Wilkinson MD [address] [place] [phone] Insurance Assigned Provider 04/18/22 02/19/23 documented as of this encounter Additional Source Comments The information contained in this document represents components of the legal health record. It is not the complete legal health record.[facility]
--- OUTSIDE RECORDS SUMMARY | 2025-03-29 09:14 | XMS_ITS | Encounter Summary ---
Author Organization [facility] Address [address] [employer] [facility] [address] [place] [address] Phone Care Team Providers Care Senior Research Executive Name Role Phone Carey Boyd Primary Care Provider + [phone] Regulo Lundberg MD Unavailable [phone] Shanda Wilkinson MD Unavailable [phone] Shanda Wilkinson MD Unavailable [phone] Encounter Details Date Type Department Care Team (Late st Contact Info) Description 10/29/2021 Procedure Pass [facility], [address] [address] Social History Tobacco Use Types Packs/Day Years [...] filedocumented in this encounter Care Teams Senior Research Executive Relationship Specialty Start Date End Date Carey Boyd PA [address] [place] [address] PCP - General Hand Glove Cleaner 08/13/20 Regulo Lundberg MD [address] [place] [address] [email or web address] Insurance Assigned Provider 11/16/20 04/18/22 Shanda Wilkinson MD [address] [place] [address] Insurance Assigned Provider 04/18/22 01/18/23 Shanda Wilkinson MD [address] [place] [address] Insurance Assigned Provider 04/18/22 02/19/23 documented as of this encounter Additional Source Comments The information contained in this document represents components of the legal health record. It is not the complete legal health record.[facility]
--- OUTSIDE RECORDS SUMMARY | 2025-03-29 09:14 | XMS_ITS | Encounter Summary ---
Author Organization [facility] Address [address] [employer] [facility] [address] [place] [address] Phone Care Team Providers Care Spa Director/Finance Name Role Phone Edmund Cope MD Primary Care Provider + Edmund Cope MD Unavailable [phone] Edmund Cope MD Primary Care Provider [...] st Contact Info) Description 11/20/2019 Procedure Pass [facility] [address] [place] [address] Social History Tobacco Use Types [...] on filedocumented in this encounter Care Teams Spa Director/Finance Relationship Specialty Start Date End Date Edmund Cope MD [email or web address] PCP - General Internal Medicine 05/16/17 01/07/20 Edmund Cope MD [email or web address] PCP - General Internal Medicine 01/08/20 02/14/20 Shannon Garcia NP [address] [place] [address] [email or web address] PCP - General Family Medicine 02/15/20 08/12/20 Carey Boyd PA [address] [place] [address] PCP - General Credit Verifier 08/13/20 Edmund Cope MD [address] [place] [address] [email or web address] Insurance Assigned Provider 09/19/19 04/19/20 Regulo Lundberg MD [address] [place] [address] [email or web address] Insurance Assigned Provider 04/19/20 09/20/20 Natasha Cerrato, FRITZ [address] [place] [address] [facility] Attorney At Law 08/14/20 08/31/20 Shanda Wilkinson MD [address] [place] [address] Insurance Assigned Provider 09/20/20 11/16/20 Regulo Lundberg MD [address] [place] [address] [email or web address] Insurance Assigned Provider 11/16/20 04/18/22 Shanda Wilkinson MD [address] [place] [address] Insurance Assigned Provider 04/18/22 01/18/23 Shanda Wilkinson MD [address] [place] [address] Insurance Assigned Provider 04/18/22 02/19/23 documented as of this encounter Additional Source Comments The information contained in this document represents components of the legal health record. It is not the complete legal health record.[facility]
--- OUTSIDE RECORDS SUMMARY | 2025-03-29 09:14 | XMS_ITS | Encounter Summary ---
Author Organization [facility] Address [address] [employer] [facility] [address] [place] [address] Phone Care Team Providers Care Hand Brim Ironer Name Role Phone Edmund Cope MD Primary [...] MD Unavailable + Shanda Wilkinson MD Unavailable [phone] Reason for Referral * MRI/CAT Scan - Closed Specialty Diagnoses / Procedures Referred By Contcoco t Referred To Contact Radiology Diagnoses Multiple joint pain Arthralgia, unspecified joint Procedures MRI Hand (Right) Clay Cavazos MD Phone: tel: fax: Referral ID Status Reason Start Date Expiration Date Visits Re quested Visits Authorized [id number] Closed 01/21/2020 07/19/2020 1 1 * MRI/CAT Scan - Closed Specialty Diagnoses / Procedures Referred By Contac t Referred To Contact Radiology Diagnoses Multiple joint pain Arthralgia, unspecified joint Procedures MRI Hand (Left) Clay Cavazos MD Phone: tel: fax: Referral ID Status Reason Start Date Expiration Date Visits Re quested Visits Authorized [id number] Closed 01/03/2020 03/06/2020 1 1 Encounter Details Date Type Department Care Team (Latest Contact Info) Description 01/04/2020 Transcribe Orders Virtual Department [address] [place] [address] Clay Cavazos MD [address] [place] [address] Multiple joint pain (Primary Dx); Arthralgia, unspecified [...] arthritis or other explanation of pain. POS [id number] Narrative 01/26/2020 8:20 AM EDT TECHNIQUE: 1.5 [...] tenosynovitis,arthritis or other explanation of pain. POS [id number] Clay Cavazos MD IMG MR EXTREMITY Final [...] joint documented in this encounter Care Teams Hand Brim Ironer Relationship Specialty Start Date End Date Edmund Cope MD [email or web address] PCP - General Internal Medicine 05/16/17 01/07/20 Edmund Cope MD PCP - General Internal Medicine 01/08/20 02/14/20 Shannon Garcia, RICARDO [address] [place] [address] [email or web address] PCP - General Family Medicine 02/15/20 08/12/20 Carey Boyd PA [address] [place] [address] PCP - General Kiln Packer 08/13/20 Edmund Cope MD [address] [place] [address] Insurance Assigned Provider 09/19/19 04/19/20 Regulo Lundberg MD [address] [place] [phone] Insurance Assigned Provider 04/19/20 09/20/20 Natasha Cerrato, FRITZ [address] [place] [address] PHCM Take Down Inspector 08/14/20 08/31/20 Shanda Wilkinson MD [address] [place] [address] Insurance Assigned Provider 09/20/20 11/16/20 Regulo Lundberg MD [address] [place] [address] [email or web address] Insurance Assigned Provider 11/16/20 04/18/22 Shanda Wilkinson MD [address] [place] [address] [email or web address] Insurance Assigned Provider 04/18/22 01/18/23 Shanda Wilkinson MD [address] [place] [address] [email or web address] Insurance Assigned Provider 04/18/22 02/19/23 documented as of this encounter Additional Source Comments The information contained in this document represents components of the legal health record. It is not the complete legal health record.[facility]
--- OUTSIDE RECORDS SUMMARY | 2025-03-29 09:14 | XMS_ITS | Encounter Summary ---
Author Organization [facility] Address [address] [place] [address] Phone Care Team Providers Care Rubber Vulcanizing Machine Operator Name Role Phone Regulo Lundberg MD Unavailable [phone] Carey Boyd Primary Care Provider [phone] Natasha Cerrato RN Unavailable Shanda Wilkinson MD Unavailable Regulo Lundberg MD Unavailable Shanda Wilkinson MD Unavailable [phone] Shanda Wilkinson MD Unavailable [phone] Encounter Details Date Type Department Care Team (Late st Contact Info) Description 08/18/2020 Procedure Pass [facility] [address] [facility], [address] [place] [address] Social History Tobacco Use Types [...] on filedocumented in this encounter Care Teams Rubber Vulcanizing Machine Operator Relationship Specialty Start Date End Date Carey Boyd PA [address] [place] [address] PCP - General Machinery Rigger 08/13/20 Regulo Lundberg MD [address] [place] [address] [email or web address] Insurance Assigned Provider 04/19/20 09/20/20 Natasha Cerrato RN [address] [place] [address] [email or web address] PHCM Aba Tutor 08/14/20 08/31/20 Shanda Wilkinson MD [address] [place] [address] Insurance Assigned Provider 09/20/20 11/16/20 Regulo Lundberg MD [address] [place] [address] [email or web address] Insurance Assigned Provider 11/16/20 04/18/22 Shanda Wilkinson MD [address] [place] [address] Insurance Assigned Provider 04/18/22 01/18/23 Shanda Wilkinson MD [address] [place] [address] [email or web address] Insurance Assigned Provider 04/18/22 02/19/23 documented as of this encounter Additional Source Comments The information contained in this document represents components of the legal health record. It is not the complete legal health record.[facility]
--- OUTSIDE RECORDS SUMMARY | 2025-03-29 09:14 | XMS_ITS | Encounter Summary ---
Author Organization [facility] Address [address] [facility] [address] [place] [address] Phone Care Team Providers Care Civil Design Specialist Name Role Phone Edmund Cope MD Primary Care Provider + Edmund Cope MD Unavailable [phone] Edmund Cope MD Primary Care Provider + Shannon Garcia NP Primary Care Provid er + Regulo Lundberg MD Unavailable + Carey Boyd Primary Care Provider + Natasha Cerrato RN Unavailable Shanda Wilkinson MD Unavailable + Regulo Lundberg MD Unavailable + hSanda Wilkinson MD Unavailable + Shanda Wilkinson MD Unavailable [phone] Encounter Details Date Type Department Care Team (Late st Contact Info) Description 11/14/2019 Procedure Pass [facility], Ct Scan - [facility] [address] [place] [place], [place] [id number] Social History Tobacco Use Types Packs/Day Years [...] on filedocumented in this encounter Care Teams Civil Design Specialist Relationship Specialty Start Date End Date Edmund Cope MD [email or web address] PCP - General Internal Medicine 05/16/17 01/07/20 Edmund Cope MD [email or web address] PCP - General Internal Medicine 01/08/20 02/14/20 Shannon Garcia NP [address] [place] [address] [email or web address] PCP - General Family Medicine 02/15/20 08/12/20 Carey Boyd PA [address] [place] [address] PCP - General It Architecture Analyst 08/13/20 Edmund Cope MD [address] [place] [address] [email or web address] Insurance Assigned Provider 09/19/19 04/19/20 Regulo Lundberg MD [address] [place] [address] [email or web address] Insurance Assigned Provider 04/19/20 09/20/20 Natasha Cerrato, RN [address] [place] [address] [facility] Enterprise Application Analyst 08/14/20 08/31/20 Shanda Wilkinson MD [address] [place] [address] [email or web address] Insurance Assigned Provider 09/20/20 11/16/20 Regulo Lundberg MD [address] [place] [address] [email or web address] Insurance Assigned Provider 11/16/20 04/18/22 Shanda Wilkinson MD [address] [place] [address] [email or web address] Insurance Assigned Provider 04/18/22 01/18/23 Shanda Wilkinson MD [address] [place] [address] [email or web address] Insurance Assigned Provider 04/18/22 02/19/23 documented as of this encounter Additional Source Comments The information contained in this document represents components of the legal health record. It is not the complete legal health record.[facility]
--- OUTSIDE RECORDS SUMMARY | 2025-03-29 09:14 | XMS_ITS | Encounter Summary ---
Author Organization [facility] Address [address] [employer] [facility] [address] [place] [address] Phone Care Team Providers Care Plastic Tubing Insulation Supervisor Name Role Phone Edmund Cope MD Primary Care Provider + Edmund Cope MD Unavailable [phone] Edmund Cope MD Primary Care Provider + Shannon Garcia NP Primary Care Provid er + Regulo Lundberg MD Unavailable + Carey Boyd Primary Care Provider + Natasha Cerrato RN Unavailable Shanda Wilkinson MD Unavailable + Regulo Lundberg MD Unavailable + Shanda Wilkinson MD Unavailable + Shanda Wilkinson MD Unavailable [phone] Encounter Details Date Type Department Care Team (Late st Contact Info) Description 11/14/2019 Procedure Pass , Ct Scan - [facility] [address] [place], [place] [id number] Social History Tobacco Use Types Packs/Day Years [...] on filedocumented in this encounter Care Teams Plastic Tubing Insulation Supervisor Relationship Specialty Start Date End Date Edmund Cope MD [email or web address] PCP - General Internal Medicine 05/16/17 01/07/20 Edmund Cope MD [email or web address] PCP - General Internal Medicine 01/08/20 02/14/20 Shannon Garcia NP [address] [place] [address] [email or web address] PCP - General Family Medicine 02/15/20 08/12/20 Carey Boyd PA [address] [place] [phone] PCP - General Protective Services Officer 08/13/20 Edmund Cope MD [address] [place] [address] [email or web address] Insurance Assigned Provider 09/19/19 04/19/20 Regulo Lundberg MD [address] [place] [address] [email or web address] Insurance Assigned Provider 04/19/20 09/20/20 Natasha Cerrato, RN [address] [place] [address] [facility] Machine Dyer 08/14/20 08/31/20 Shanda Wilkinson MD [address] [place] [address] [email or web address] Insurance Assigned Provider 09/20/20 11/16/20 Regulo Lundberg MD [address] [place] [address] [email or web address] Insurance Assigned Provider 11/16/20 04/18/22 Shanda Wilkinson MD [address] [place] [address] [email or web address] Insurance Assigned Provider 04/18/22 01/18/23 Shanda Wilkinson MD [address] [place] [phone] [email or web address] Insurance Assigned Provider 04/18/22 02/19/23 documented as of this encounter Additional Source Comments The information contained in this document represents components of the legal health record. It is not the complete legal health record.[facility]
--- OUTSIDE RECORDS SUMMARY | 2025-03-29 09:14 | XMS_ITS | Encounter Summary ---
Author Organization [facility] Address [address] [facility] [place] [address] [place] [address] Phone Care Team Providers Care Grommet Worker Name Role Phone Regulo Lundberg MD Unavailable Carey Boyd Primary Care Provider [phone] Natasha Cerrato RN Unavailable Shanda Wilkinson MD Unavailable Regulo Lundberg MD Unavailable Shanda Wilkinson MD Unavailable [phone] Shanda Wilkinson MD Unavailable [phone] Encounter Details Date Type Department Care Team (Late st Contact Info) Description 08/25/2020 Procedure Pass [facility] [address] [place] [address] Social History Tobacco Use Types [...] on filedocumented in this encounter Care Teams Grommet Worker Relationship Specialty Start Date End Date Carey Boyd PA [address] [place] [address] PCP - General [employer] Technical Lead Senior Developer 08/13/20 Regulo Lundberg MD [address] [place] [address] [email or web address] Insurance Assigned Provider 04/19/20 09/20/20 Naatsha Cerrato RN [address] [place] [address] [email or web address] [facility] Spray Dry Operator 08/14/20 08/31/20 Shanda Wilkinson MD [address] [place] [address] [email or web address] Insurance Assigned Provider 09/20/20 11/16/20 Regulo Lundberg MD [address] [place] [address] [email or web address] Insurance Assigned Provider 11/16/20 04/18/22 Shanda Wilkinson MD [address] [place] [address] Insurance Assigned Provider 04/18/22 01/18/23 Shanda Wilkinson MD [address] [place] [address] [email or web address] Insurance Assigned Provider 04/18/22 02/19/23 documented as of this encounter Additional Source Comments The information contained in this document represents components of the legal health record. It is not the complete legal health record.[facility]
--- OUTSIDE RECORDS SUMMARY | 2025-03-29 09:15 | XMS_ITS | Encounter Summary ---
Author Organization [facility] Address [address] [employer] [facility] [address] [place] [address] Phone Care Team Providers Care Product Mgmt Dev Manager Name Role Phone Edmund Cope MD Unavailable [phone] Edmund Cope MD Primary Care Provider [phone] Shannon Garcia NP Primary Care Provid er Regulo Lundberg MD Unavailable [phone] Carey Boyd Primary Care Provider [phone] Natasha Cerrato RN Unavailable Shanda Wilkinson MD Unavailable [phone] Regulo Lundberg MD Unavailable [phone] Shanda Wilkinson MD Unavailable [phone] Shanda Wilkinson MD Unavailable [phone] Encounter Details Date Type Department Care Team (Late st Contact Info) Description 01/15/2020 Ancillary Orders [facility] [address] [place], [place] [phone] System, Provider Not In, [facility] [address] [address] Social History Tobacco Use Types Packs/Day Years [...] on filedocumented in this encounter Care Teams Product Mgmt Dev Manager Relationship Specialty Start Date End Date Edmund Cope MD [address] [place] [address] [email or web address] PCP - General Internal Medicine 01/08/20 02/14/20 Shannon Garcia NP [address] [place] [address] [email or web address] PCP - General Family Medicine 02/15/20 08/12/20 Carey Boyd PA [address] [place] [address] PCP - General Missionary Coordinator 08/13/20 Edmund Cope MD [address] [place] [address] Insurance Assigned Provider 09/19/19 04/19/20 Regulo Lundberg MD [address] [place] [address] 19[address] Insurance Assigned Provider 04/19/20 09/20/20 Natasha Cerrato, RN [address] [place] [address] [facility] Professional Athletes Coach 08/14/20 08/31/20 Shanda Wilkinson MD [address] [place] [address]284 Insurance Assigned Provider 09/20/20 11/16/20 Regulo Lundberg MD [address] [place] [phone] Insurance Assigned Provider 11/16/20 04/18/22 Shanda Wilkinson MD [address] [place] [phone] Insurance Assigned Provider 04/18/22 01/18/23 Shanda Wilkinson MD [address] [place] [address] Insurance Assigned Provider 04/18/22 02/19/23 documented as of this encounter Additional Source Comments The information contained in this document represents components of the legal health record. It is not the complete legal health record.[facility]
--- OUTSIDE RECORDS SUMMARY | 2025-03-29 09:15 | XMS_ITS | Encounter Summary ---
Author Organization [facility] Address [address] [facility] [address] [place] [address] Phone Care Team Providers Care Heat And Vent Aircraft Mechanic Name Role Phone Edmund Cope MD Primary [...] Treat Guillermo Pineda MD Phone: tel: fax: [email or web address]:[email or web address] [facility] [address] [place] [address] Phone: tel: Referral ID Status Reason Start Date Expiration Date Visits Re quested Visits Authorized [id number] Closed 12/06/2019 06/12/2020 20 20 Encounter Details Date Type Department Care Team (Latest Contact Info) Description 12/06/2019 Transcribe Orders [facility] Rehabilitation Services [address] [place] [address] Guillermo Pineda MD [address] [facility] 2ND [place] [address] [email or web address] Encounter for rehabilitation (Primary Dx) [...] Diagnoses Orde r Schedule Ambulatory referral to [facility] Physical Therapy Outpatient Referral Routine Encounter for rehabilitation Ordered: 12/06/2019 documented as of this encounter Visit Diagnoses Diagnosis Encounter for rehabilitation- Primary documented in this encounter Care Teams Heat And Vent Aircraft Mechanic Relationship Specialty Start Date End Date Edmund Cope MD PCP - General Internal Medicine 05/16/17 01/07/20 Edmund Cope MD PCP - General Internal Medicine 01/08/20 02/14/20 Shannon Garcia NP [address] [place] [address] [email or web address] PCP - General Family Medicine 02/15/20 08/12/20 Carey Boyd PA [address] [place] [address] PCP - General Tin Worker 08/13/20 Edmund Cope MD [address] [place] [address] [email or web address] Insurance Assigned Provider 09/19/19 04/19/20 Regulo Lundberg MD [address] [place] [phone] Insurance Assigned Provider 04/19/20 09/20/20 Natasha Cerrato, FRITZ [address] [place] [phone] PHCM Insulation Cutter And Former 08/14/20 08/31/20 Shanda Wilkinson MD [address] [place] [phone] Insurance Assigned Provider 09/20/20 11/16/20 Regulo Lundberg MD [address] [place] [phone] Insurance Assigned Provider 11/16/20 04/18/22 Shanda Wilkinson MD [address] [place] [address] [email or web address] Insurance Assigned Provider 04/18/22 01/18/23 Shanda Wilkinson MD [address] [place] [address] [email or web address] Insurance Assigned Provider 04/18/22 02/19/23 documented as of this encounter Additional Source Comments The information contained in this document represents components of the legal health record. It is not the complete legal health record.[facility]
--- OUTSIDE RECORDS SUMMARY | 2025-03-29 09:15 | XMS_ITS | Encounter Summary ---
Author Organization [facility] Address [address] [facility] [address] [place] [address] Phone Care Team Providers Care Material Hauler Name Role Phone Edmund Cope MD Primary Care Provider + Edmund Cope MD Unavailable [phone] Edmund Cope MD Primary Care Provider + Shannon Garcia NP Primary Care Provid er + Regulo Lundberg MD Unavailable + Carey Boyd Primary Care Provider + Natasha Cerrato RN Unavailable Shanda Wilkinson MD Unavailable [phone] Regulo Lundberg MD Unavailable + Shanda Wilkinson MD Unavailable + Shanda Wilkinson MD Unavailable [phone] Encounter Details Date Type Department Care Team (Late st Contact Info) Description 01/04/2020 Procedure Pass [facility], [address] [place], [place] [phone] Social History Tobacco Use Types Packs/Day Years [...] on filedocumented in this encounter Care Teams Material Hauler Relationship Specialty Start Date End Date Edmund Cope MD [email or web address] PCP - General Internal Medicine 05/16/17 01/07/20 Edmund Cope MD [email or web address] PCP - General Internal Medicine 01/08/20 02/14/20 Shannon Garcia NP [address] [place] [address] [email or web address] PCP - General Family Medicine 02/15/20 08/12/20 Carey Boyd PA [address] [place] [address] PCP - General Repair Armature Winder 08/13/20 Edmund Cope MD [address] [place] [address] [email or web address] Insurance Assigned Provider 09/19/19 04/19/20 Regulo Lundberg MD [address] [place] [address] [email or web address] Insurance Assigned Provider 04/19/20 09/20/20 Natasha Cerrato, RN [address] [place] [address] [email or web address] [facility] Skill Labor 08/14/20 08/31/20 Shanda Wilkinson MD [address] [place] [address] [email or web address] Insurance Assigned Provider 09/20/20 11/16/20 Regulo Lundberg MD [address] [place] [address] [email or web address] Insurance Assigned Provider 11/16/20 04/18/22 Shanda Wilkinson MD [address] [place] [address] [email or web address] Insurance Assigned Provider 04/18/22 01/18/23 Shanda Wilkinson MD [address] [place] [address] [email or web address] Insurance Assigned Provider 04/18/22 02/19/23 documented as of this encounter Additional Source Comments The information contained in this document represents components of the legal health record. It is not the complete legal health record.[facility]
--- OUTSIDE RECORDS SUMMARY | 2025-03-29 09:15 | XMS_ITS | Encounter Summary ---
Author Organization [facility] Address [address] [facility] [address] [place] [address] Phone Care Team Providers Care Director Of Financial Reporting Name Role Phone Regulo Lundberg MD Unavailable Carey Boyd Primary Care Provider [phone] Shanda Wilkinson MD Unavailable [phone] Regulo Lundberg MD Unavailable Shanda Wilkinson MD Unavailable [phone] Shanda Wilkinson MD Unavailable [phone] Reason for Referral * Physical Therapy (Urgent) - Closed Specialty Diagnoses / Procedures Referred By Meche yuan Referred To Contact Physical Therapy Diagnoses Encounter for rehabilitation Left Ankle Procedures Evalaute & Treat Guillermo Pineda MD Phone: tel: fax: mailto:[email or web address] [address] [place] [address] Phone: tel: Referral ID Status Reason Start Date Expiration Date Visits Re quested Visits Authorized [id number] Closed 09/08/2020 12/04/2020 17 17 Encounter Details Date Type Department Care Team (Latest Contact Info) Description 09/08/2020 Transcribe Orders [facility] Services [address] [place] [address] Guillermo Pineda MD [address] [facility] 2ND [place] [address] [email or web address] Encounter for rehabilitation (Primary Dx) [...] Diagnoses Orde r Schedule Ambulatory referral to [facility] Physical Therapy Outpatient Referral Routine Encounter for rehabilitation Ordered: 09/08/2020 documented as of this encounter Visit Diagnoses Diagnosis Encounter for rehabilitation- Primary documented in this encounter Care Teams Director Of Financial Reporting Relationship Specialty Start Date End Date Carey Boyd PA [address] [place] [address] PCP - General Superintendent Factory 08/13/20 Regulo Lundberg MD [address] [place] [address] Insurance Assigned Provider 04/19/20 09/20/20 Shanda Wilkinson MD [address] [place] [address] [email or web address] Insurance Assigned Provider 09/20/20 11/16/20 Regulo Lundberg MD [address] [place] [address] [email or web address] Insurance Assigned Provider 11/16/20 04/18/22 Shanda Wilkinson MD [address] [place] [address] [email or web address] Insurance Assigned Provider 04/18/22 01/18/23 Shanda Wilkinson MD [address] [place] [address] [email or web address] Insurance Assigned Provider 04/18/22 02/19/23 documented as of this encounter Additional Source Comments The information contained in this document represents components of the legal health record. It is not the complete legal health record.[facility]
--- OUTSIDE RECORDS SUMMARY | 2025-03-29 09:15 | XMS_ITS | Encounter Summary ---
Author Organization [facility] Address [address] [facility] [address] [place] [address] Phone Care Team Providers Care Electronic Masking System Operator Name Role Phone Edmund Cope MD Primary Care Provider + Edmund Cope MD Unavailable [phone] Edmund Cope MD Primary Care Provider + Shannon Garcia NP Primary Care Provid er + Regulo Lundberg MD Unavailable + Carey Boyd Primary Care Provider + Natasha Cerrtao RN Unavailable Shanda Wilkinson MD Unavailable [phone] Regulo Lundberg MD Unavailable + Shanda Wilkinson MD Unavailable + Shanda Wilkinson MD Unavailable [phone] Encounter Details Date Type Department Care Team (Late st Contact Info) Description 01/04/2020 Procedure Pass [facility], [address] [place], [place] [phone] Social History Tobacco Use Types Packs/Day Years [...] on filedocumented in this encounter Care Teams Electronic Masking System Operator Relationship Specialty Start Date End Date Edmund Cope MD [email or web address] PCP - General Internal Medicine 05/16/17 01/07/20 Edmund Cope MD [email or web address] PCP - General Internal Medicine 01/08/20 02/14/20 Shannon Garcia NP [address] [place] [address] [email or web address] PCP - General Family Medicine 02/15/20 08/12/20 Carey Boyd PA [address] [place] [address] PCP - General Feature Writer 08/13/20 Edmund Cope MD [address] [place] [address] [email or web address] Insurance Assigned Provider 09/19/19 04/19/20 Regulo Lundberg MD [address] [place] [address] [email or web address] Insurance Assigned Provider 04/19/20 09/20/20 Natasha Cerrato, RN [address] [place] [address] [email or web address] [facility] Optical Engineering Manager 08/14/20 08/31/20 Shanda Wilkinson MD [address] [place] [address] [email or web address] Insurance Assigned Provider 09/20/20 11/16/20 Regulo Lundberg MD [address] [place] [address] [email or web address] Insurance Assigned Provider 11/16/20 04/18/22 Shanda Wilkinson MD [address] [place] [address] [email or web address] Insurance Assigned Provider 04/18/22 01/18/23 Shanda Wilkinson MD [address] [place] [address] [email or web address] Insurance Assigned Provider 04/18/22 02/19/23 documented as of this encounter Additional Source Comments The information contained in this document represents components of the legal health record. It is not the complete legal health record.[facility]
--- OUTSIDE RECORDS SUMMARY | 2025-03-29 09:15 | XMS_ITS | Encounter Summary ---
Author Organization [facility] Address [address] [facility] [address] [place] [address] Phone Care Team Providers Care Cloth Winder Name Role Phone Regulo Lundberg MD Unavailable Carey Boyd Primary Care Provider [phone] Shanda Wilkinson MD Unavailable Regulo Lundberg MD Unavailable Shanda Wilkinson MD Unavailable Shanda Wilkinson MD Unavailable [phone] Encounter Details Date Type Department Care Team (Late st Contact Info) Description 09/08/2020 Ancillary Orders [facility] Department of Orthopaedic Surgery, Foot & Ankle Service [address] [facility], 3rd Floor, [address] [place] [address] Ruiz Sauer PA-C [address] [place] [address] [email or web address] Pain Social History Tobacco Use Types Packs/Day [...] pain documented in this encounter Care Teams Cloth Winder Relationship Specialty Start Date End Date Carey Boyd PA [address] [place] [address] PCP - General Forging Roll Operator 08/13/20 Regulo Lundberg MD [address] [place] [address] Insurance Assigned Provider 04/19/20 09/20/20 Shanda Wilkinson MD [address] [place] [address] Insurance Assigned Provider 09/20/20 11/16/20 Regulo Lundberg MD [address] [place] [address] Insurance Assigned Provider 11/16/20 04/18/22 Shanda Wilkinson MD [address] [place] [address] Insurance Assigned Provider 04/18/22 01/18/23 Shanda Wilkinson MD [address] [place] [address] Insurance Assigned Provider 04/18/22 02/19/23 documented as of this encounter Additional Source Comments The information contained in this document represents components of the legal health record. It is not the complete legal health record.[facility]
--- OUTSIDE RECORDS SUMMARY | 2025-03-29 09:16 | XMS_ITS | Encounter Summary ---
Author Organization [facility] Address [address] [facility] [address] [place] [address] Phone Care Team Providers Care Brownfield Redevelopment Site Manager Name Role Phone Edmund Cope MD Primary Care Provider + Edmund Cope MD Unavailable + [phone] Edmnud Cope MD Unavailable + 0 Edmund Cope [...] laterality System, Provider Not In, [employer] [address] [address] Phone: tel: Referral ID Status Reason Start Date Expiration Date Visits Re quested Visits Authorized [id number] Closed 09/01/2018 09/02/2019 1 1 Encounter Details Date Type Department Care Team (Latest Contact Info) Description 09/01/2018 Transcribe Orders [facility] NEUROLOGY VIRTUAL DEPARTMENT [address] [place] [phone] Self-Referred, Patient Myoclonus (Primary Dx); Chronic ankle [...] Diagnoses Orde r Schedule Ambulatory referral to [facility] Neurology Outpatient Referral Routine Myoclonus Chronic ankle pain, unspecified laterality Ordered: 09/01/2018 documented as of this encounter Visit Diagnoses Diagnosis Myoclonus- Primary Chronic ankle pain, unspecified laterality documented in this encounter Care Teams Brownfield Redevelopment Site Manager Relationship Specialty Start Date End Date Edmund Cope MD [email or web address] PCP - General Internal Medicine 05/16/17 01/07/20 Edmund Cope MD PCP - General Internal Medicine 01/08/20 02/14/20 Shannon Garcia NP [address] [place] [address] [email or web address] PCP - General Family Medicine 02/15/20 08/12/20 Carey Boyd PA [address] [place] [address] PCP - General Biology Instructor 08/13/20 Edmund Cope MD [address] [place] [address] [email or web address] Insurance Assigned Provider 10/14/18 03/24/19 Edmund Cope MD [address] [place] [address] [email or web address] Insurance Assigned Provider 09/19/19 04/19/20 Regulo Lundberg MD [address] [place] [address] [email or web address] Insurance Assigned Provider 04/19/20 09/20/20 Natasha Cerrato RN [address] [place] [address] [email or web address] PHC Buttoner 08/14/20 08/31/20 Shanda Wilkinson MD [address] [place] [address] [email or web address] Insurance Assigned Provider 09/20/20 11/16/20 Regulo Lundberg MD [address] [place] [address] [email or web address] Insurance Assigned Provider 11/16/20 04/18/22 Shanda Wilkinson MD [address] [place] [address] [email or web address] Insurance Assigned Provider 04/18/22 01/18/23 Shanda Wilkinson MD [address] [place] [address] [email or web address] Insurance Assigned Provider 04/18/22 02/19/23 documented as of this encounter Additional Source Comments The information contained in this document represents components of the legal health record. It is not the complete legal health record.[facility]
--- OUTSIDE RECORDS SUMMARY | 2025-03-29 09:16 | XMS_ITS | Encounter Summary ---
Author Organization [facility] Address [address] [facility] [address] [place] [address] Phone Care Team Providers Care Branch Service Associate Name Role Phone Edmund Cope MD Primary [...] MD Unavailable + Shanda Wilkinson MD Unavailable [phone] Encounter Details Date Type Department Care Team (Late st Contact Info) Description 07/07/2017 Procedure Pass [place] Admitting Dept - Virtual Department [address] [place], [place] [phone] Social History Tobacco Use Types Packs/Day Years [...] on filedocumented in this encounter Care Teams Branch Service Associate Relationship Specialty Start Date End Date Edmund Cope MD [email or web address] PCP - General Internal Medicine 05/16/17 01/07/20 Edmund Cope MD [email or web address] PCP - General Internal Medicine 01/08/20 02/14/20 Shannon Garcia NP [address] [place] [address] [email or web address] PCP - General Family Medicine 02/15/20 08/12/20 Carey Boyd PA [address] [place] [address] PCP - General Food Supervisor 08/13/20 Edmund Cope MD [address] [place] [address] [email or web address] Insurance Assigned Provider 10/14/18 03/24/19 Edmund Cope MD [address] [place] [address] [email or web address] Insurance Assigned Provider 09/19/19 04/19/20 Regulo Lundberg MD [address] [place] [address] [email or web address] Insurance Assigned Provider 04/19/20 09/20/20 Natasha Cerrato RN [address] [place] [address] [email or web address] 08/14/20 08/31/20 Shanda Wilkinson MD [address] [place] [address] [email or web address] Insurance Assigned Provider 09/20/20 11/16/20 Regulo Lundberg MD [address] [place] [address] [email or web address] Insurance Assigned Provider 11/16/20 04/18/22 Shanda Wilkinson MD [address] [place] [address] [email or web address] Insurance Assigned Provider 04/18/22 01/18/23 Shanda Wilkinson MD [address] [place] [address] [email or web address] Insurance Assigned Provider 04/18/22 02/19/23 documented as of this encounter Additional Source Comments The information contained in this document represents components of the legal health record. It is not the complete legal health record.[facility]
--- OUTSIDE RECORDS SUMMARY | 2025-03-29 09:16 | XMS_ITS | Encounter Summary ---
Author Organization [facility] Address [address] [facility] [address] [place] [address] Phone Care Team Providers Care Microsoft Crm Developer Name Role Phone Edmund Cope MD Unavailable [phone] Shannon Garcia NP Primary Care Provid er Regulo Lundberg MD Unavailable Carey Boyd Primary Care Provider [phone] Natasha Cerrato RN Unavailable Shanda Wilkinson MD Unavailable Regulo Lundberg MD Unavailable Shanda Wilkinson MD Unavailable Shanda Wilkinson MD Unavailable [phone] Encounter Details Date Type Department Care Team (Late st Contact Info) Description 02/20/2020 Procedure Pass [facility], Ct Scan - [address] [phone] Social History Tobacco Use Types Packs/Day Years [...] on filedocumented in this encounter Care Teams Microsoft Crm Developer Relationship Specialty Start Date End Date Shannon Garcia NP [address] [place] [address] [email or web address] PCP - General Family Medicine 02/15/20 08/12/20 Carey Boyd PA [address] [place] [address] PCP - General Ssis Etl Developer 08/13/20 Edmund Cope MD [address] [place] [address] Insurance Assigned Provider 09/19/19 04/19/20 Regulo Lundberg MD [address] [place] [address] Insurance Assigned Provider 04/19/20 09/20/20 Natasha Cerrato RN [address] [place] [address] PHCM Service Desk Team Lead 08/14/20 08/31/20 Shanda Wilkinson MD [address] [place] [address] [email or web address] Insurance Assigned Provider 09/20/20 11/16/20 Regulo Lundberg MD [address] [place] [address] [email or web address] Insurance Assigned Provider 11/16/20 04/18/22 Shanda Wilkinson MD [address] [place] [address] [email or web address] Insurance Assigned Provider 04/18/22 01/18/23 Shanda Wilkinson MD [address] [place] [address] [email or web address] Insurance Assigned Provider 04/18/22 02/19/23 documented as of this encounter Additional Source Comments The information contained in this document represents components of the legal health record. It is not the complete legal health record.[facility]
--- OUTSIDE RECORDS SUMMARY | 2025-03-29 09:16 | XMS_ITS | Encounter Summary ---
Author Organization [facility] Address [address] [facility] [address] [place] [address] Phone Care Team Providers Care Caregivers Homecare Name Role Phone Carey Boyd Primary Care Provider Regulo Lundberg MD Unavailable [phone] Shanda Wilkinson MD Unavailable [phone] Shanda Wilkinson MD Unavailable [phone] Encounter Details Date Type Department Care Team (Late st Contact Info) Description 12/08/2021 Procedure Pass [facility] Interventional X-ray Imaging, [place] [address] [place] [address] Social History Tobacco Use Types Packs/Day Years [...] on filedocumented in this encounter Care Teams Caregivers Homecare Relationship Specialty Start Date End Date Carey Boyd PA [address] [place] [address] PCP - General Top Lift Nailer 08/13/20 Regulo Lundberg MD [address] [place] [address] [email or web address] Insurance Assigned Provider 11/16/20 04/18/22 Shanda Wilkinson MD [address] [place] [address] Insurance Assigned Provider 04/18/22 01/18/23 Shanda Wilkinson MD [address] [place] [address] Insurance Assigned Provider 04/18/22 02/19/23 documented as of this encounter Additional Source Comments The information contained in this document represents components of the legal health record. It is not the complete legal health record.[facility]
--- OUTSIDE RECORDS SUMMARY | 2025-03-29 09:16 | XMS_ITS | Encounter Summary ---
Author Organization [facility] Address [address] [employer] [facility] [address] [place] [address] Phone Care Team Providers Care Shuttle Truck Driver Name Role Phone Carey Boyd Primary Care Provider + [phone] Regulo Lundberg MD Unavailable [phone] Shanda Wilkinson MD Unavailable [phone] Shanda Wilkinson MD Unavailable [phone] Encounter Details Date Type Department Care Team (Late st Contact Info) Description 12/08/2021 Procedure Pass [facility] MR Imaging, [place] [address] [place] [address] Social History Tobacco Use Types Packs/Day Years [...] on filedocumented in this encounter Care Teams Shuttle Truck Driver Relationship Specialty Start Date End Date Carey Boyd PA [address] [place] [address] PCP - General Certified Prosthetist Vice President 08/13/20 Regulo Lundberg MD [address] [place] [address] [email or web address] Insurance Assigned Provider 11/16/20 04/18/22 Shanda Wilkinson MD [address] [place] [address] Insurance Assigned Provider 04/18/22 01/18/23 Shanda Wilkinson MD [address] [place] [address] Insurance Assigned Provider 04/18/22 02/19/23 documented as of this encounter Additional Source Comments The information contained in this document represents components of the legal health record. It is not the complete legal health record.[facility]
--- OUTSIDE RECORDS SUMMARY | 2025-03-29 09:16 | XMS_ITS | Encounter Summary ---
Author Organization [facility] Address [address] [employer] [facility] [address] [place] [address] Phone Care Team Providers Care Hoop Puncher Name Role Phone Edmund Cope MD Primary [...] MD Unavailable + Shanda Wilkinson MD Unavailable [phone] Encounter Details Date Type Department Care Team (Late st Contact Info) Description 11/15/2018 Procedure Pass [facility], [address] [id number] Social History Tobacco Use Types Packs/Day Years [...] on filedocumented in this encounter Care Teams Hoop Puncher Relationship Specialty Start Date End Date Edmund Cope MD [email or web address] PCP - General Internal Medicine 05/16/17 01/07/20 Edmund Cope MD [email or web address] PCP - General Internal Medicine 01/08/20 02/14/20 Shannon Garcia NP [address] [place] [address] [email or web address] PCP - General Family Medicine 02/15/20 08/12/20 Carey Boyd PA [address] [place] [address] PCP - General Personal Financial Representative 08/13/20 Edmund Cope MD [address] [place] [address] [email or web address] Insurance Assigned Provider 10/14/18 03/24/19 Edmund Cope MD [address] [place] [address] [email or web address] Insurance Assigned Provider 09/19/19 04/19/20 Regulo Lundberg MD [address] [place] [address] [email or web address] Insurance Assigned Provider 04/19/20 09/20/20 Natasha Cerrato RN [address] [place] [address] [email or web address] Quarry Plug And Feather Driller 08/14/20 08/31/20 Shanda Wilkinson MD [address] [place] [address] [email or web address] Insurance Assigned Provider 09/20/20 11/16/20 Regulo Lundberg MD [address] [place] [address] [email or web address] Insurance Assigned Provider 11/16/20 04/18/22 Shanda Wilkinson MD [address] [place] [address] [email or web address] Insurance Assigned Provider 04/18/22 01/18/23 Shanda Wilkinson MD [address] [place] [address] [email or web address] Insurance Assigned Provider 04/18/22 02/19/23 documented as of this encounter Additional Source Comments The information contained in this document represents components of the legal health record. It is not the complete legal health record.[facility]
--- OUTSIDE RECORDS SUMMARY | 2025-03-29 09:16 | XMS_ITS | Encounter Summary ---
Author Organization [facility] Address [address] [facility] [address] [place] [address] Phone Care Team Providers Care Ui Lead Developer Name Role Phone Edmund Cope MD [...] MD Unavailable + Shanda Wilkinson MD Unavailable [phone] Encounter Details Date Type Department Care Team (Late st Contact Info) Description 05/13/2017 Ancillary Orders Virtual Department [address] [place], [place] [phone] Carey Boyd PA [address] [place] [address] [place] [id number] Right shoulder pain, unspecified chronicity Social History [...] be due to mild bursitis. POS - [id number] Narrative 05/19/2017 10:31 AM EST HISTORY: Pain, [...] be due to mild bursitis. POS - [id number] Carey Boyd IA IMG MR EXTREMITY Final Res ult documented in this encounter Visit Diagnoses Diagnosis Right shoulder pain, unspecified chronicity Right shoulder pain, unspecified chronicity documented in this encounter Care Teams Ui Lead Developer Relationship Specialty Start Date End Date Edmund Cope MD PCP - General Internal Medicine 05/16/17 01/07/20 Edmund Cope MD PCP - General Internal Medicine 01/08/20 02/14/20 Shannon Garcia NP [address] [place] [address] [email or web address] PCP - General Family Medicine 02/15/20 08/12/20 Carey Boyd PA [address] [place] [address] PCP - General Bonbon Dipper 08/13/20 Edmund Cope MD [address] [place] [address] [email or web address] Insurance Assigned Provider 10/14/18 03/24/19 Edmund Cope MD [address] [place] [address] [email or web address] Insurance Assigned Provider 09/19/19 04/19/20 Regulo Lundberg MD [address] [place] [address] [email or web address] Insurance Assigned Provider 04/19/20 09/20/20 Natasha Cerrato RN [address] [place] [address] [email or web address] PHC Contact Lens Inspector 08/14/20 08/31/20 Shanda Wilkinson MD [address] [place] [address] [email or web address] Insurance Assigned Provider 09/20/20 11/16/20 Regulo Lundberg MD [address] [place] [address] [email or web address] Insurance Assigned Provider 11/16/20 04/18/22 Shanda Wilkinson MD [address] [place] [address] [email or web address] Insurance Assigned Provider 04/18/22 01/18/23 Shanda Wilkinson MD [address] [place] [address] [email or web address] Insurance Assigned Provider 04/18/22 02/19/23 documented as of this encounter Additional Source Comments The information contained in this document represents components of the legal health record. It is not the complete legal health record.[facility]
--- OUTSIDE RECORDS SUMMARY | 2025-03-29 09:16 | XMS_ITS | Encounter Summary ---
Author Organization [facility] Address [address] [facility] [address] [place] [address] Phone Care Team Providers Care Child Welfare Assistant Name Role Phone Edmund Cope MD Unavailable [phone] Shannon Garcia NP Primary Care Provid er Regulo Lundberg MD Unavailable [phone] Carey Boyd Primary Care Provider [phone] Natasha Cerrato RN Unavailable Shanda Wilkinson MD Unavailable [phone] Regulo Lundberg MD Unavailable [phone] Shanda Wilkinson MD Unavailable [phone] Shanda Wilkinson MD Unavailable [phone] Reason for Referral * Outpatient Procedure - Closed Specialty Diagnoses / Procedures Referred By Meche yuan Referred To Contact Radiology Diagnoses Nausea Vomiting without nausea, intractability of vomiting not specified, unspecified vomiting type Abnormal weight loss Procedures NM Gastric Emptying Moise Gomez MD Phone: tel: fax: mailto: Referral ID Status Reason Start Date Expiration Date Visits Re quested Visits Authorized [id number] Closed 03/11/2020 03/11/2021 1 1 Encounter Details Date Type Department Care Team (Latest Contact Info) Description 03/11/2020 Transcribe Orders Virtual Department [address] [place] [address] Moise Gomez MD [address] [address] [email or web address] Nausea (Primary Dx); Vomiting without [...] activity is still present in the stomach (dkoeir33-15%) At two hours 45% of activity is still present in the stomach (iywxlj39-87%) At four hours is 2.5% of activity is still present in the stomach (normal0-10%) IMPRESSION: Normal gastric emptying. POS - [id number] Moise Gomez MD [facility] Final Result documented in this encounter Visit Diagnoses Diagnosis Nausea- Primary Nausea alone Vomiting without nausea, intractability of vomiting not specified, unspecified vomiting type Abnormal weight loss Loss of weight Nausea Nausea alone Vomiting without nausea, intractability of vomiting not specified, unspecified vomiting type Abnormal weight loss Loss of weight documented in this encounter Care Teams Child Welfare Assistant Relationship Specialty Start Date End Date Shannon Garcia NP [address] [place] [address] [email or web address] PCP - General Family Medicine 02/15/20 08/12/20 Carey Boyd PA [address] [place] [address] PCP - General Labelling Machine Operator 08/13/20 Edmund Cope MD [address] [place] [address] [email or web address] Insurance Assigned Provider 09/19/19 04/19/20 Regulo Lundberg MD [address] [place] [address] Insurance Assigned Provider 04/19/20 09/20/20 Natasha Cerrato, RN [address] [place] [address] [email or web address] [facility] Switch Tender 08/14/20 08/31/20 Shanda Wilkinson MD [address] [place] [address] Insurance Assigned Provider 09/20/20 11/16/20 Regulo Lundberg MD [address] [place] [address] Insurance Assigned Provider 11/16/20 04/18/22 Shanda Wilkinson MD [address] [place] [address] Insurance Assigned Provider 04/18/22 01/18/23 Shanda Wilkinson MD [address] [place] [address] Insurance Assigned Provider 04/18/22 02/19/23 documented as of this encounter Additional Source Comments The information contained in this document represents components of the legal health record. It is not the complete legal health record.[facility]
--- OUTSIDE RECORDS SUMMARY | 2025-03-29 09:16 | XMS_ITS | Encounter Summary ---
Author Organization [facility] Address [address] [facility] [address] [place] [address] Phone Care Team Providers Care Jet Operator Name Role Phone Carey Boyd Primary Care Provider + [phone] Regulo Lundberg MD Unavailable [phone] Shanda Wilkinson MD Unavailable [phone] Shanda Wilkinson MD Unavailable [phone] Encounter Details Date Type Department Care Team (Late st Contact Info) Description 01/19/2022 Procedure Pass [facility], [address] [address] Social History Tobacco Use Types Packs/Day Years [...] on filedocumented in this encounter Care Teams Jet Operator Relationship Specialty Start Date End Date Carey Boyd PA [address] [place] [address] PCP - General Facial Operator 08/13/20 Regulo Lundberg MD [address] [place] [address] [email or web address] Insurance Assigned Provider 11/16/20 04/18/22 Shanda Wilkinson MD [address] [place] [address] Insurance Assigned Provider 04/18/22 01/18/23 Shanda Wilkinson MD [address] [place] [address] Insurance Assigned Provider 04/18/22 02/19/23 documented as of this encounter Additional Source Comments The information contained in this document represents components of the legal health record. It is not the complete legal health record.[facility]
--- OUTSIDE RECORDS SUMMARY | 2025-03-29 09:16 | XMS_ITS | Encounter Summary ---
Author Organization [facility] Address [address] [employer] [facility] [address] [place] [address] Phone Care Team Providers Care Deputy Building Guard Name Role Phone Edmund Cope MD Primary [...] MD Unavailable + Shanda Wilkinson MD Unavailable [phone] Encounter Details Date Type Department Care Team (Latest Contact Info) Description 01/24/2018 Transcribe Orders Virtual Department [address] [place] [address] Guillermo Villar MD [address] [place] [address] [email or web address] Elbow pain, left (Primary Dx) Social History [...] arm documented in this encounter Care Teams Deputy Building Guard Relationship Specialty Start Date End Date Edmund Cope MD [email or web address] PCP - General Internal Medicine 05/16/17 01/07/20 Edmund Cope MD [email or web address] PCP - General Internal Medicine 01/08/20 02/14/20 Shannon Garcia NP [address] [place] [address] [email or web address] PCP - General Family Medicine 02/15/20 08/12/20 Carey Boyd PA [address] [place] [address] PCP - General Windows Vmware Administrator 08/13/20 Edmund Cope MD [address] [place] [address] [email or web address] Insurance Assigned Provider 10/14/18 03/24/19 Edmund Cope MD [address] [place] [address] [email or web address] Insurance Assigned Provider 09/19/19 04/19/20 Regulo Lundberg MD [address] [place] [address] [email or web address] Insurance Assigned Provider 04/19/20 09/20/20 Natasha Cerrato RN [address] [place] [address] [email or web address] [employer] 08/14/20 08/31/20 Shanda Wilkinson MD [address] [place] [address] [email or web address] Insurance Assigned Provider 09/20/20 11/16/20 Regulo Lundberg MD [address] [place] [address] [email or web address] Insurance Assigned Provider 11/16/20 04/18/22 Shanda Wilkinson MD [address] [place] [address] [email or web address] Insurance Assigned Provider 04/18/22 01/18/23 Shanda Wilkinson MD [address] [place] [address] [email or web address] Insurance Assigned Provider 04/18/22 02/19/23 documented as of this encounter Additional Source Comments The information contained in this document represents components of the legal health record. It is not the complete legal health record.[facility]
--- OUTSIDE RECORDS SUMMARY | 2025-03-29 09:16 | XMS_ITS | Encounter Summary ---
Author Organization [facility] Address [address] [employer] [facility] [address] [place] [address] Phone Care Team Providers Care Master Data Analyst Name Role Phone Carey Boyd Primary Care Provider + [phone] Regulo Lundberg MD Unavailable [phone] Shanda Wilkinson MD Unavailable [phone] Shanda Wilkinson MD Unavailable [phone] Encounter Details Date Type Department Care Team (Late st Contact Info) Description 01/19/2022 Procedure Pass [facility], X-Ray - [facility] [address] [place] [address] Social History Tobacco Use Types Packs/Day Years [...] on filedocumented in this encounter Care Teams Master Data Analyst Relationship Specialty Start Date End Date Carey Boyd PA [address] [place] [address] PCP - General Slasher Machine Operator 08/13/20 Regulo Lundberg MD [address] [place] [address] [email or web address] Insurance Assigned Provider 11/16/20 04/18/22 Shanda Wilkinson MD [address] [place] [address] Insurance Assigned Provider 04/18/22 01/18/23 Shanda Wilkinson MD [address] [place] [address] Insurance Assigned Provider 04/18/22 02/19/23 documented as of this encounter Additional Source Comments The information contained in this document represents components of the legal health record. It is not the complete legal health record.[facility]
--- OUTSIDE RECORDS SUMMARY | 2025-03-29 09:16 | XMS_ITS | Clinical Summary ---
Author Organization [facility] Address [address] [facility] [address] [place] [address] Phone Care Team Providers Care Sed Special Education Teacher Name Role Phone Carey Boyd Primary Care Provider [phone] Allergies Active Allergy Reactions Criticality Noted Date [...] this topic Medical Devices Implanted Type Area Open Hearth Furnace Operator Helper Device Identifier Shelf Expiration Date Model / Serial / Lot Appleton Suture 2 2.3mm 2strand Force Fiber Iconix Intellibraid -Order In Multiples Of 5 - [id number] Implanted:Qty: 3 on 07/07/2017 by Vernon Moses DO at [facility] NODATA Right: Shoulder [employer] 11/11/2018 [id number] / / [id number] Screw Bone 3.5x14mm Cortex Self Tapping Fully Threaded Hex Head Ss - [id number] Implanted:Qty: 1 on 11/20/2019 by Guillermo Pineda MD at [facility] Left: Ankle SYNTHES 204.814 / / AUTO#3 LOAD #1 Bone Plate 141x3.5mm 12 Hole Tubular One Third With Collar Lcp Ss - [id number] Implanted:Qty: 1 on 11/20/2019 by Guillermo Pineda MD at [facility] Left: Ankle SYNTHES 241.421 / / AUTO#3 LOAD #1 Screw Bone 2.7x18mm Cortical Self Tapping Fully Threaded Hex Head Ss Bx/1ea - [id number] Implanted:Qty: 1 on 11/20/2019 by Guillermo Pineda MD at [facility] Left: Ankle SYNTHES 202.818 / / AUTO#3 LOAD #1 Screw Bone 2.7x20mm Cortical Self Tapping Fully Threaded Hex Head Ss - [id number] Implanted:Qty: 1 on 11/20/2019 by [place]illermo Pineda [place] [facility] [place]: Ankle SYNTHES 202.820 / / AUTO#3 LOAD #1 Screw Bone 12x3.5mm Compression Ss Locking Self Tapping Full Thread T15 Stardrive Recess - [id number] Implanted:Qty: 1 on 11/20/2019 by Guillermo Pineda MD at [facility] Left: Ankle SYNTHES 212.102 / / AUTO#3 LOAD #1 Screw Bone 3.5x12mm Cortex Self Tapping Fully Threaded Hex Head Ss - [id number] Implanted:Qty: 2 on 11/20/2019 by Guillermo Pineda [place] [facility] [place]: Ankle SYNTHES 204.812 / / AUTO#3 LOAD #1 Screw Bone 3.5x45mm Cortex Self Tapping Fully Threaded Hex Head Ss - [id number] Implanted:Qty: 1 on 11/20/2019 by Guillermo Pineda [place] [facility] [place]: Ankle SYNTHES 204.845 / / AUTO#3 LOAD #1 Screw Bone 3.5x50mm Cortex Ss Self Tapping Hexagonal Socket - [id number] Implanted:Qty: 2 on 11/20/2019 by Guillermo Pineda [place] [facility] [place]: Ankle SYNTHES 204.850 / / AUTO#3 LOAD #1 Washer Bone 7.0mm Sm Screw Cannulated Ss - Ssterilizer 4, Load 3: Sterilized 2020 Implanted:Qty: 2 on 08/25/2020 by Guillermo Pineda [place] [facility] [place]: Foot SYNTHES 219.98 / STERILIZER 4, LOAD 3: STERILIZED 2020 / Screw Bone 30x3.5mm Cannulated Ss Full Thread Hexagonal Socket Flat Head - Discontinued Per Supplier - Ssterilizer 4, Load 3: Sterilized 2020 Implanted:Qty: 1 on 08/25/2020 by Guillermo Pineda MD at [facility] STANDARD Left: Foot SYNTHES 205.230 / STERILIZER 4, LOAD 3: STERILIZED 2020 / Appleton Suture 4.5mm Arthroscopy Reelx Stt Peek Stainless Steel Core Knotless Sharp Tip Expandable Sterile Bx/5ea - [id number] Implanted:Qty: 1 on 07/07/2017 by Vernon Moses DO at [facility] Right: Shoulder [employer] 05/24/2019 [id number] / / [id number] Graft Bone 1.00ml Biocartilage Synthetic Matrix [place] Extracellular Filler Syringe - [id number] Implanted:Qty: 1 on 11/20/2019 by Guillermo Pineda MD at [facility] Left: Ankle [employer] [place] 04/11/2024 [id number] / [id number] / Appleton Suture 2.9mmx12.5 Pushlock Biocomposite Swivelock Vented Bx/5ea - Must Be Ordered In Multiples Of 5's - [id number] Implanted:Qty: 2 on 11/20/2019 by Guillermo Pineda MD at [facility] Left: Ankle AR[employer] 09/10/2021 [id number] / / [id number] Kit 1.5cc Graft Bone Augment Synthetic Bioabsorbable - [id number] Implanted:Qty: 1 on 11/20/2019 by Guillermo Pineda MD at [facility] Right: Ankle [employer] 05/12/2021 [id number] / / [id number] Guidewire Pipo 1.96u227do Non Threaded - Ssterilizer4, Load3: Sterilized Implanted:Qty: 2 on 08/25/2020 by Guillermo Pineda MD at [facility] Left: Foot SYNTHES 900.721 / STERILIZER4, LOAD3: STERILIZED / 3.5mm Cannulated Screws, Fully Threaded Implanted:Qty: 1 on 08/25/2020 by Guillermo Pineda MD at [facility] Left: Foot 205.224 / / Description:Sterilizer # nicole d #3 August 11, 2020 Explanted Type Area Open Hearth Furnace Operator Helper Device Identifier Shelf Expiration Date Model / Serial / Lot Screw Bone 18x3.5mm Compression Ss Locking Self Tapping Full Thread T15 Stardrive Recess - [id number] Implanted:Qty: 1 by Guillermo Pineda MD Explanted:Qty: 1 on 11/20/2019 by Guillermo Pineda MD at [facility] Left: Ankle SYNTHES 212.105 / / AUTO#3 LOAD #1 Screw Bone 3.5x14mm Cortex Self Tapping Fully Threaded Hex Head Ss - [id number] Implanted:Qty: 1 Explanted:Qty: 1 on 11/20/2019 [place] [facility] [place]: Ankle SYNTHES 204.814 / / AUTO#3 LOAD #1 Procedures Procedure Name Priority Date/Time Associated Diagnosis Comments PAP TEST Routine 11/16/2023 12:00 AM EDT from Last 3 Months or Most Recently Relevant to Health Maintenance Results * Pap Test (11/16/2023 12:00 AM EDT) Report [address] [address] Fuel Verification Technician: Jennifer Boyer MD CORONER FORENSIC TECHNICIAN Cytology Report FINAL DIAGNOSIS A. PAP SMEAR (THIN PREP) CE: SPECIMEN ADEQUACY: Satisfactory for evaluation; transformation zone present. INTERPRETATION: NEGATIVE FOR INTRAEPITHELIAL LESION OR MALIGNANCY. This specimen was analyzed by the automated ThinPrep Imaging System ([employer] and the selected mishra were reviewed by a security assistant. Electronically Signed Out By: NICOLE Herndon(ASCP) The [...] 59, 66, 68) Note: Testing performed by [facility] Onclariyuback HR-HPV analysis. Clinical correlation is advised. This HPV test was performed at [facility], [address] [place] [address]. This test has been FDA approved for both SurePath and ThinPrep cervical cytology specimens. The accuracy and precision of this test for all other specimen sources has been verified in the Cytopathology Laboratory of the [facility] and has not been cleared or approved by the U.S. Food and Drug Administration. Clinical correlation is advised. CLINICAL HISTORY Date of Last Menstrual Period: 11-06-2023 Other Clinical Conditions: Screening Pap SPECIMEN SOURCE A: PAP SMEAR (THIN PREP) CE Patient Name: IVAN WILKINSON : 1990 (Age: 33) Sex: F Institution: [facility] Location: [facility] Date of Collection: 11/16/2023 Date of Reported: 11/22/2023 13:06 Results to: Shannon Garcia [facility] Final Diagnosis A. PAP SMEAR (THIN PREP) CE: SPECIMEN ADEQUACY: Satisfactory for evaluation; transformation zone present. INTERPRETATION: NEGATIVE FOR INTRAEPITHELIAL LESION OR MALIGNANCY. This specimen was analyzed by the automated ThinPrep Imaging System ([employer] and the selected mishra were reviewed by a security assistant. [facility] Results\Inter pretation A. PAP SMEAR (THIN PREP) CE: Human Papilloma Virus TestNEGATIVE for high-risk Human Papilloma Virus types 16, 18, 45 and the Other high risk probe set (Includes 31, 33, 35, 39, 51, 52, 56, 58, 59, 66, 68)Note: Testing performed by [facility] OncSnaapiq HR-HPV analysis. Clinical correlation is advised. This HPV test was performed at [facility], [address] [place] [address]. This test has been FDA approved for both SurePath and ThinPrep cervical cytology specimens. The accuracy and precision of this test for all other specimen sources has been verified in the Cytopathology Laboratory of the [facility] and has not been cleared or approved by the U.S. Food and Drug Administration. Clinical correlation is advised. [facility] Conversion Type 11/16/2023 10:35 AM EDT Shannon Garcia NP CYTOLOGY ORDERABLES Edited Result - Final [facility] [address] [place] [address] from Last 3 Months or Most Recently Relevant to Health Maintenance Insurance [facility] [place] [address] [place] [address] [place] [address] ACO [facility] ACO [facility] ACO [facility] ACO [facility] INSURANCE Advance Directives For more information, please contact: [phone] (9AM - 5PM Sandra/[facility], Tuesday-Tuesday) * Full Code (Presumed) (Latest Code Status on File) Date Activated Date Inactivated Comments 07/07/2017 8:30 AM 07/07/2017 3:58 PM Care Teams Sed Special Education Teacher Relationship Specialty Start Date End Date Carey oByd PA [address] [place] [phone] PCP - General Health And Safety Director 08/13/20 Additional Source Comments The information contained in this document represents components of the legal health record. It is not the complete legal health record.[facility]
--- OUTSIDE RECORDS SUMMARY | 2025-03-29 09:16 | XMS_ITS | Encounter Summary ---
Author Organization [facility] Address [address] [facility] [address] [place] [address] Phone Care Team Providers Care Administrative Project Coordinator Name Role Phone Edmund Cope MD [...] MD Unavailable + Shanda Wilkinson MD Unavailable [phone] Encounter Details Date Type Department Care Team (Late st Contact Info) Description 08/09/2018 Ancillary Orders Virtual Department [address] [place], [place] [id number] Aniya Jimenez MD [address] [facility] [address] [place] [address] Abnormal involuntary movement Social History Tobacco Use [...] Modality EEG Narrative 08/14/2018 3:34 PM EST [facility] ELECTROENCEPHALOGRAPHY (EEG) LAB INTRODUCTION: The patient is [...] persistent focal asymmetries occurred. MD Sameer Berrios [place] [facility] Aniya Jimenez MD NEUROLOGY ORDERABLES Fi nal Result documented in this encounter Visit Diagnoses Diagnosis Abnormal involuntary movement Abnormal involuntary movements Abnormal involuntary movement Abnormal involuntary movements documented in this encounter Care Teams Administrative Project Coordinator Relationship Specialty Start Date End Date Edmund Cope MD [email or web address] PCP - General Internal Medicine 05/16/17 01/07/20 Edmund Cope MD [email or web address] PCP - General Internal Medicine 01/08/20 02/14/20 Shannon Garcia NP [address] [place] [address] [email or web address] PCP - General Family Medicine 02/15/20 08/12/20 Carey Boyd PA [address] [place] [address] PCP - General Wharf Worker 08/13/20 Edmund Cope MD [address] [place] [address] [email or web address] Insurance Assigned Provider 10/14/18 03/24/19 Edmund Cope MD [address] [place] [address] [email or web address] Insurance Assigned Provider 09/19/19 04/19/20 Regulo Lundberg MD [address] [place] [phone] [email or web address] Insurance Assigned Provider 04/19/20 09/20/20 Natasha Cerrato, RN [address] [place] [phone] [email or web address] [facility] Ship'S Pilot 08/14/20 08/31/20 Shanda Wilkinson MD [address] [place] [id number] [email or web address] Insurance Assigned Provider 09/20/20 11/16/20 Regulo Lundberg MD [address] [place] [phone] [email or web address] Insurance Assigned Provider 11/16/20 04/18/22 Shanda Wilkinson MD [address] [place] [phone] Insurance Assigned Provider 04/18/22 01/18/23 Shanda Wilkinson MD [address] [place] [id number] [email or web address] Insurance Assigned Provider 04/18/22 02/19/23 documented as of this encounter Additional Source Comments The information contained in this document represents components of the legal health record. It is not the complete legal health record.[facility]
--- OUTSIDE RECORDS SUMMARY | 2025-03-29 09:16 | XMS_ITS | Encounter Summary ---
Author Organization [facility] Address [address] [facility] [address] [place] [address] Phone Care Team Providers Care Habitat Conservation Planner Name Role Phone Carey Boyd Primary Care Provider + [phone] Regulo Lundberg MD Unavailable [phone] Shanda Wilkinson MD Unavailable [phone] Shanda Wilkinson MD Unavailable [phone] Encounter Details Date Type Department Care Team (Late st Contact Info) Description 01/27/2021 Procedure Pass [facility] [address] [place] [address] Social History Tobacco Use Types [...] on filedocumented in this encounter Care Teams Habitat Conservation Planner Relationship Specialty Start Date End Date Carey Boyd PA [address] [place] [address] PCP - General Millroom Supervisor 08/13/20 Regulo Lundberg MD [address] [place] [address] [email or web address] Insurance Assigned Provider 11/16/20 04/18/22 Shanda Wilkinson MD [address] [place] [address] Insurance Assigned Provider 04/18/22 01/18/23 Shanda Wilkinson MD [address] [place] [address] Insurance Assigned Provider 04/18/22 02/19/23 documented as of this encounter Additional Source Comments The information contained in this document represents components of the legal health record. It is not the complete legal health record.[facility]
--- OUTSIDE RECORDS SUMMARY | 2025-03-29 09:17 | XMS_ITS | Encounter Summary ---
Author Organization [facility] Address [address] [facility] [address] [place] [address] Phone Care Team Providers Care Ordnance Corps Officer Name Role Phone Shannon Garcia NP Primary Care Provid er Regulo Lundberg MD Unavailable [phone] Carey Boyd Primary Care Provider [phone] Natasha Cerrato RN Unavailable Shanda Wilkinson MD Unavailable Regulo Lundberg MD Unavailable [phone] Shanda Wilkinson MD Unavailable [phone] Shanda Wilkinson MD Unavailable [phone] Encounter Details Date Type Department Care Team (Late st Contact Info) Description 05/15/2020 Procedure Pass [facility] [address] [place], [place] [phone] Social History Tobacco Use Types Packs/Day Years [...] on filedocumented in this encounter Care Teams Ordnance Corps Officer Relationship Specialty Start Date End Date Shannon Garcia NP [address] [place] [address] [email or web address] PCP - General Family Medicine 02/15/20 08/12/20 Carey Boyd PA [address] [place] [address] PCP - General Mold Carpenter 08/13/20 Regulo Lundberg MD [address] [place] [phone] Insurance Assigned Provider 04/19/20 09/20/20 Natasha Cerrato, FRITZ [address] [place] [phone] PHCM Mason Foreman/Superintendant 08/14/20 08/31/20 Shanda Wilkinson MD [address] [place] [phone] Insurance Assigned Provider 09/20/20 11/16/20 Regulo Lundberg MD [address] [place] [phone] [email or web address] Insurance Assigned Provider 11/16/20 04/18/22 Shanda Wilkinson MD [address] [place] [address] [email or web address] Insurance Assigned Provider 04/18/22 01/18/23 Shanda Wilkinson MD [address] [place] [address] [email or web address] Insurance Assigned Provider 04/18/22 02/19/23 documented as of this encounter Additional Source Comments The information contained in this document represents components of the legal health record. It is not the complete legal health record.[facility]
--- OUTSIDE RECORDS SUMMARY | 2025-03-29 09:17 | XMS_ITS | Encounter Summary ---
Author Organization [facility] Address [address] [facility] [address] [place] [address] Phone Care Team Providers Care Skilled Nursing Facility Counselor Name Role Phone Carey Boyd Primary Care Provider Regulo Lundberg MD Unavailable [phone] Shanda Wilkinson MD Unavailable [phone] Shanda Wilkinson MD Unavailable [phone] Reason for Referral * Physical Therapy (Routine) - Closed Specialty Diagnoses / Procedures Referred By Meche t Referred To Contact Physical Therapy Diagnoses Encounter for rehabilitation Shannon Garcia NP [address] [place] [address] Phone: tel: fax: [email or web address] [address] [place] [address] Phone: tel: Referral ID Status Reason Start Date Expiration Date Visits Re quested Visits Authorized [id number] Closed 02/13/2021 02/13/2022 1 1 Encounter Details Date Type Department Care Team (Latest Contact Info) Description 02/13/2021 Transcribe Orders [facility] [address] [place] [address] Shannon Garcia NP [address] [place] [address] [place] [phone] [email or web address] Encounter for rehabilitation (Primary Dx) Social History [...] Diagnoses Orde r Schedule Ambulatory referral to [facility] Physical Therapy Outpatient Referral Routine Encounter for rehabilitation Ordered: 02/13/2021 documented as of this encounter Visit Diagnoses Diagnosis Encounter for rehabilitation- Primary documented in this encounter Care Teams Skilled Nursing Facility Counselor Relationship Specialty Start Date End Date Carey Boyd PA [address] [place] [id number] PCP - General Travel Accommodations Rater 08/13/20 Regulo Lundberg MD [address] [place] [phone] Insurance Assigned Provider 11/16/20 04/18/22 Shanda Wilkinson MD [address] [place] [phone] Insurance Assigned Provider 04/18/22 01/18/23 Shanda Wilkinson MD [address] [place] [address] [email or web address] Insurance Assigned Provider 04/18/22 02/19/23 documented as of this encounter Additional Source Comments The information contained in this document represents components of the legal health record. It is not the complete legal health record.[facility]
--- OUTSIDE RECORDS SUMMARY | 2025-03-29 09:17 | XMS_ITS | Encounter Summary ---
Author Organization [facility] Address [address] [facility] [address] [place] [address] Phone Care Team Providers Care Obstetrics Scrub Nurse Name Role Phone Carey Boyd Primary Care Provider [phone] Shanda Wilkinson MD Unavailable [phone] Encounter Details Date Type Department Care Team (Late st Contact Info) Description 01/24/2023 Procedure Pass [address] [place] [address] Social History Tobacco Use Types Packs/Day Years [...] on filedocumented in this encounter Care Teams Obstetrics Scrub Nurse Relationship Specialty Start Date End Date Carey Boyd PA [address] [place] [address] PCP - General Professor Of Counseling 08/13/20 Shanda Wilkinson MD [address] [place] [address] [email or web address] Insurance Assigned Provider 04/18/22 02/19/23 documented as of this encounter Additional Source Comments The information contained in this document represents components of the legal health record. It is not the complete legal health record.[facility]
== END 2025-03-29 09:34 | disposition home or self-care (01) ==
LOC: HO.HPODS 08:47
PROVIDERS: PCP Physician Assistant Medical; Visit Provider Student in an Organized Health Care Education/Training Program
DX: S93.492A Sprain of other ligament of left ankle, initial encounter (principal); M19.072 Primary osteoarthritis, left ankle and foot; M24.272 Disorder of ligament, left ankle; M95.8 Other specified acquired deformities of musculoskeletal system
CPT/HCPCS: 99215

== ENCOUNTER 2025-04-16 08:53 | Outpatient (AMB) | payer OTHER, SELFPAY ==
--- OUTSIDE RECORDS SUMMARY | 2025-04-16 09:29 | XMS_ITS | Encounter Summary ---
Author Organization [facility] Address [address] [facility] [address] [place] [address] Phone Care Team Providers Care Health Care Liaison Name Role Phone Regulo Lundberg MD Unavailable Carey Boyd Primary Care Provider [phone] Natasha Cerrato RN Unavailable Shanda Wilkinson MD Unavailable Regulo Lundberg MD Unavailable Shanda Wilkinson MD Unavailable [phone] Shanda Wilkinson MD Unavailable [phone] Encounter Details Date Type Department Care Team (Late st Contact Info) Description 08/25/2020 Procedure Pass [facility] [address] [place] [address] Social History Tobacco Use Types [...] on filedocumented in this encounter Care Teams Health Care Liaison Relationship Specialty Start Date End Date Carey Boyd PA [address] [place] [phone] PCP - General Terrazzo Polisher 08/13/20 Regulo Lundberg MD [address] [place] [address] [email or web address] Insurance Assigned Provider 04/19/20 09/20/20 Natasha Cerrato RN [address] [place] [address] [email or web address] [facility] Christmas Tree Grower 08/14/20 08/31/20 Shanda Wilkinson MD [address] [place] [address] [email or web address] Insurance Assigned Provider 09/20/20 11/16/20 Regulo Lundberg MD [address] [place] [address] [email or web address] Insurance Assigned Provider 11/16/20 04/18/22 Shanda Wilkinson MD [address] [place] [address] [phone] Insurance Assigned Provider 04/18/22 01/18/23 Shanda Wilkinson MD [address] [place] [address] [email or web address] Insurance Assigned Provider 04/18/22 02/19/23 documented as of this encounter Additional Source Comments The information contained in this document represents components of the legal health record. It is not the complete legal health record.[facility]
--- OUTSIDE RECORDS SUMMARY | 2025-04-16 09:29 | XMS_ITS | Encounter Summary ---
Author Organization [facility] Address [address] [facility] [address] [place] [address] Phone Care Team Providers Care Social Worker School Name Role Phone Shannon Garcia NP Primary Care Provid er Regulo Lundberg MD Unavailable Carey Boyd Primary Care Provider [phone] Natasha Cerrato RN Unavailable Shanda Wilkinson MD Unavailable Regulo Lundberg MD Unavailable [phone] Shanda Wilkinson MD Unavailable [phone] Shanda Wilkinson MD Unavailable [phone] Encounter Details Date Type Department Care Team (Late st Contact Info) Description 05/28/2020 Procedure Pass [facility] [address] [place], [place] [id number] Social History Tobacco Use Types Packs/Day Years [...] on filedocumented in this encounter Care Teams Social Worker School Relationship Specialty Start Date End Date Shannon Garcia NP [address] [place] [address] [email or web address] PCP - General Family Medicine 02/15/20 08/12/20 Carey Boyd PA [address] [place] [phone] PCP - General Ladle Filler 08/13/20 Regulo Lundberg MD [address] [place] [address] Insurance Assigned Provider 04/19/20 09/20/20 Natasha Cerrato, FRITZ [address] [place] [address] PHCM Bereavement Counselor 08/14/20 08/31/20 Shanda Wilkinson MD [address] [place] [address] 11259 Insurance Assigned Provider 09/20/20 11/16/20 Regulo Lundberg MD [address] [place] [address] 09808 Insurance Assigned Provider 11/16/20 04/18/22 Shanda Wilkinson MD [address] [place] [address] [email or web address] Insurance Assigned Provider 04/18/22 01/18/23 Shanda Wilkinson MD [address] [place] [address] [email or web address] Insurance Assigned Provider 04/18/22 02/19/23 documented as of this encounter Additional Source Comments The information contained in this document represents components of the legal health record. It is not the complete legal health record.[facility]
--- OUTSIDE RECORDS SUMMARY | 2025-04-16 09:29 | XMS_ITS | Encounter Summary ---
Author Organization [facility] Address [address] [facility] [address] [place] [address] Phone Care Team Providers Care Bricklayer Name Role Phone Edmund Cope MD Primary Care Provider + Edmund Cope MD Unavailable [phone] Edmund Cope MD Primary Care Provider + Shannon Garcia NP Primary Care Provid er + Regulo Lundberg MD Unavailable + Carey Boyd Primary Care Provider + Natasha Cerrato RN Unavailable Shanda Wilkinson MD Unavailable + Regulo Lundberg MD Unavailable + Shanda Wilkinson MD Unavailable + Shanda Wilkinson MD Unavailable [phone] Encounter Details Date Type Department Care Team (Late st Contact Info) Description 11/14/2019 Procedure Pass [facility], Ct Scan - [facility] [address] [place], [place] [id number] Social History Tobacco Use Types Packs/Day Years [...] on filedocumented in this encounter Care Teams Bricklayer Relationship Specialty Start Date End Date Edmund Cope MD [email or web address] PCP - General Internal Medicine 05/16/17 01/07/20 Edmund Cope MD [email or web address] PCP - General Internal Medicine 01/08/20 02/14/20 Shannon Garcia NP [address] [place] [address] [email or web address] PCP - General Family Medicine 02/15/20 08/12/20 Carey Boyd PA [address] [place] [address] PCP - General Deaf And Hard Of Hearing Teacher 08/13/20 Edmund Cope MD [address] [place] [address] [email or web address] Insurance Assigned Provider 09/19/19 04/19/20 Regulo Lundberg MD [address] [place] [address] [email or web address] Insurance Assigned Provider 04/19/20 09/20/20 Natasha Cerrato, RN [address] [place] [address] [facility] Prototype Engineer 08/14/20 08/31/20 Shanda Wilkinson MD [address] [place] [address] [email or web address] Insurance Assigned Provider 09/20/20 11/16/20 Regulo Lundberg MD [address] [place] [address] [email or web address] Insurance Assigned Provider 11/16/20 04/18/22 Shanda Wilkinson MD [address] [place] [address] [email or web address] Insurance Assigned Provider 04/18/22 01/18/23 Shanda Wilkinson MD [address] [place] [address] [email or web address] Insurance Assigned Provider 04/18/22 02/19/23 documented as of this encounter Additional Source Comments The information contained in this document represents components of the legal health record. It is not the complete legal health record.[facility]
--- OUTSIDE RECORDS SUMMARY | 2025-04-16 09:29 | XMS_ITS | Encounter Summary ---
Author Organization [facility] Address [address] [facility] [address] [place] [address] Phone Care Team Providers Care Dairy Husbandry Teacher Name Role Phone Edmund Cope MD Primary Care Provider + Edmund Cope MD Unavailable [phone] Edmund Cope MD Primary Care Provider + Shannon Garcia NP Primary Care Provid er + Regulo Lundberg MD Unavailable + Carey Boyd Primary Care Provider + Natasha Cerrato RN Unavailable Shanda Wilkinson MD Unavailable + Regulo Lundberg MD Unavailable + Shanda Wilkinson MD Unavailable + Shanda Wilkinson MD Unavailable [phone] Encounter Details Date Type Department Care Team (Late st Contact Info) Description 11/14/2019 Procedure Pass [facility], Ct Scan - [facility] [address] [place], [place] [phone] Social History Tobacco Use Types Packs/Day Years [...] on filedocumented in this encounter Care Teams Dairy Husbandry Teacher Relationship Specialty Start Date End Date Edmund Cope MD PCP - General Internal Medicine 05/16/17 01/07/20 Edmund Cope MD PCP - General Internal Medicine 01/08/20 02/14/20 Shannon Garcia NP [address] [place] [address] [email or web address] PCP - General Family Medicine 02/15/20 08/12/20 Carey Boyd PA [address] [place] [phone] PCP - General Architectural Administrative Assistant 08/13/20 Edmund Cope MD [address] [place] [address] [email or web address] Insurance Assigned Provider 09/19/19 04/19/20 Regulo Lundberg MD [address] [place] [address] Insurance Assigned Provider 04/19/20 09/20/20 Natasha Cerrato, RN 10 [place] [address] [facility] Gate Supervisor 08/14/20 08/31/20 Shanda Wilkinson MD [address] [place] [address] 61141 Insurance Assigned Provider 09/20/20 11/16/20 Regulo Lundberg MD [address] [place] [address] 54[address] Insurance Assigned Provider 11/16/20 04/18/22 Shanda Wilkinson MD [address] [place] [address] [phone] Insurance Assigned Provider 04/18/22 01/18/23 Shanda Wilkinson MD [address] [place] [address] [phone] Insurance Assigned Provider 04/18/22 02/19/23 documented as of this encounter Additional Source Comments The information contained in this document represents components of the legal health record. It is not the complete legal health record.[facility]
--- OUTSIDE RECORDS SUMMARY | 2025-04-16 09:29 | XMS_ITS | Encounter Summary ---
Author Organization [facility] Address [address] [facility] [address] [place] [address] Phone Care Team Providers Care Real Estate Associate Name Role Phone Edmund Cope MD [...] (Latest Contact Info) Description 10/25/2019 Transcribe Orders [facility] [address] [place], [place] [id number] Dalton Leone DO [address] [place] [address] [email or web address] SALE TO [facility] Screening for unspecified [...] Primary documented in this encounter Care Teams Real Estate Associate Relationship Specialty Start Date End Date Edmund Cope MD [email or web address] PCP - General Internal Medicine 05/16/17 01/07/20 Edmund Cope MD [email or web address] PCP - General Internal Medicine 01/08/20 02/14/20 Shannon Garcia NP [address] [place] [address] [email or web address] PCP - General Family Medicine 02/15/20 08/12/20 Carey Boyd PA [address] [place] [phone] PCP - General Weighmaster Lead 08/13/20 Edmund Cope MD [address] [place] [address] [email or web address] Insurance Assigned Provider 09/19/19 04/19/20 Regulo Lundberg MD [address] [place] [phone] Insurance Assigned Provider 04/19/20 09/20/20 Natasha Cerrato, RN [address] [place] [address] [email or web address] [facility] Chief Operator 08/14/20 08/31/20 Shanda Wilkinson MD [address] [place] [phone] Insurance Assigned Provider 09/20/20 11/16/20 Regulo Lundberg MD [address] [place] [address] [email or web address] Insurance Assigned Provider 11/16/20 04/18/22 Shanda Wilkinson MD [address] [place] [address] [phone] Insurance Assigned Provider 04/18/22 01/18/23 Shanda Wilkinson MD [address] [place] [address] [phone] Insurance Assigned Provider 04/18/22 02/19/23 documented as of this encounter Additional Source Comments The information contained in this document represents components of the legal health record. It is not the complete legal health record.[facility]
--- OUTSIDE RECORDS SUMMARY | 2025-04-16 09:29 | XMS_ITS | Encounter Summary ---
Author Organization [facility] Address [address] [facility] [address] [place] [address] Phone Care Team Providers Care Slitter And Cutter Operator Name Role Phone Shannon Garcia NP Primary Care Provid er Regulo Lundberg MD Unavailable Carey Boyd Primary Care Provider [phone] Natasha Cerrato RN Unavailable Shanda Wilkinson MD Unavailable Regulo Lundberg MD Unavailable Shanda Wilkinson MD Unavailable [phone] Shanda Wilkinson MD Unavailable [phone] Encounter Details Date Type Department Care Team (Late st Contact Info) Description 07/30/[address] [facility] Cardiology [address] [facility], [address] [place] [address] Social History Tobacco Use Types [...] on filedocumented in this encounter Care Teams Slitter And Cutter Operator Relationship Specialty Start Date End Date Shannon Garcia NP [address] [place] [address] [email or web address] PCP - General Family Medicine 02/15/20 08/12/20 Carey Boyd PA [address] [place] [phone] PCP - General Hog Driver 08/13/20 Regulo Lundberg MD [address] [place] [address] 41615 Insurance Assigned Provider 04/19/20 09/20/20 Natasha Cerrato, FRITZ [address] [place] [address] PHC Top Coater 08/14/20 08/31/20 Shanda Wilkinson MD [address] [place] [address] 23565 Insurance Assigned Provider 09/20/20 11/16/20 Regulo Lundberg MD [address] [place] [address] [phone] Insurance Assigned Provider 11/16/20 04/18/22 Shanda Wilkinson MD [address] [place] [address] [email or web address] Insurance Assigned Provider 04/18/22 01/18/23 Shanda Wilkinson MD [address] [place] [address] [email or web address] Insurance Assigned Provider 04/18/22 02/19/23 documented as of this encounter Additional Source Comments The information contained in this document represents components of the legal health record. It is not the complete legal health record.[facility]
--- OUTSIDE RECORDS SUMMARY | 2025-04-16 09:29 | XMS_ITS | Encounter Summary ---
Author Organization [facility] Address [address] [facility] [address] [place] [address] Phone Care Team Providers Care Tailor Men'S Ready To Wear Name Role Phone Edmund Cope MD Primary Care Provider + Edmund Cope MD Unavailable [phone] Edmund Cope MD Primary Care Provider + Shannon Garcia NP Primary Care Provid er + Regulo Lundberg MD Unavailable + Carey Boyd Primary Care Provider + Natasha Cerrato RN Unavailable Shanda Wilkinson MD Unavailable + Regulo Lundberg MD Unavailable + Shanda Wilkinson MD Unavailable + Shanda Wilkinson MD Unavailable [phone] Encounter Details Date Type Department Care Team (Late st Contact Info) Description 11/20/2019 Procedure Pass [facility] [address] [place] [address] Social History Tobacco Use Types [...] on filedocumented in this encounter Care Teams Tailor Men'S Ready To Wear Relationship Specialty Start Date End Date Edmund Cope MD [email or web address] PCP - General Internal Medicine 05/16/17 01/07/20 Edmund Cope MD [email or web address] PCP - General Internal Medicine 01/08/20 02/14/20 Shannon Garcia NP [address] [place] [address] [email or web address] PCP - General Family Medicine 02/15/20 08/12/20 Carey Boyd PA [address] [place] [phone] PCP - General Kiln Car Unloader 08/13/20 Edmund Cope MD [address] [place] [address] 24[address] [email or web address] Insurance Assigned Provider 09/19/19 04/19/20 Regulo Lundberg MD [address] [place] [address] [email or web address] Insurance Assigned Provider 04/19/20 09/20/20 Natasha Cerrato, FRITZ [address] [place] [address] [facility] Research Hydrologist 08/14/20 08/31/20 Shanda Wilkinson MD [address] [place] [address] [phone] Insurance Assigned Provider 09/20/20 11/16/20 Regulo Lundberg MD [address] [place] [address] [email or web address] Insurance Assigned Provider 11/16/20 04/18/22 Shanda Wilkinson MD [address] [place] [address] [phone] Insurance Assigned Provider 04/18/22 01/18/23 Shanda Wilkinson MD [address] [place] [address] [phone] Insurance Assigned Provider 04/18/22 02/19/23 documented as of this encounter Additional Source Comments The information contained in this document represents components of the legal health record. It is not the complete legal health record.[facility]
--- OUTSIDE RECORDS SUMMARY | 2025-04-16 09:29 | XMS_ITS | Encounter Summary ---
Author Organization [facility] Address [address] [place] [address] Phone Care Team Providers Care Information Consultant Name Role Phone Regulo Lundberg MD Unavailable Carey Boyd Primary Care Provider [phone] Natasha Cerrato RN Unavailable Shanda Wilkinson MD Unavailable Regulo Lundberg MD Unavailable [phone] Shanda Wilkinson MD Unavailable [phone] Shanda Wilkinson MD Unavailable [phone] Encounter Details Date Type Department Care Team (Late st Contact Info) Description 08/18/2020 Procedure Pass [facility] [address] [facility], [address] [place] [address] Social History Tobacco Use Types [...] on filedocumented in this encounter Care Teams Information Consultant Relationship Specialty Start Date End Date Carey Boyd PA [address] [place] [address] PCP - General Manager Compliance 08/13/20 Regulo Lundberg MD [address] [place] [address] [email or web address] Insurance Assigned Provider 04/19/20 09/20/20 Natasha Cerrato RN [address] [place] [address] [email or web address] PHCM Cdc Associate 08/14/20 08/31/20 Shanda Wilkinson MD [address] [place] [address] Insurance Assigned Provider 09/20/20 11/16/20 Regulo Lundberg MD [address] [place] [address] [email or web address] Insurance Assigned Provider 11/16/20 04/18/22 Shanda Wilkinson MD [address] [place] [address] Insurance Assigned Provider 04/18/22 01/18/23 Shanda Wilkinson MD [address] [place] [phone] [email or web address] Insurance Assigned Provider 04/18/22 02/19/23 documented as of this encounter Additional Source Comments The information contained in this document represents components of the legal health record. It is not the complete legal health record.[facility]
--- OUTSIDE RECORDS SUMMARY | 2025-04-16 09:30 | XMS_ITS | Clinical Summary ---
Author Organization [facility] Address [address] [facility] [address] [place] [address] Phone Care Team Providers Care Linux Admin Name Role Phone Carey Boyd Primary Care Provider [phone] Allergies Active Allergy Reactions Criticality Noted Date [...] this topic Medical Devices Implanted Type Area Cyber Intelligence Analyst Device Identifier Shelf Expiration Date Model / Serial / Lot [place] Suture 2 2.3mm 2strand Force Fiber Iconix Intellibraid -Order In Multiples Of 5 - [id number] Implanted:Qty: 3 on 07/07/2017 by Vernon Moses DO at [facility] NODATA Right: Shoulder [employer] 11/11/2018 [id number] / / [id number] Screw Bone 3.5x14mm Cortex Self Tapping Fully Threaded Hex Head Ss - [id number] Implanted:Qty: 1 on 11/20/2019 by Guillermo Pineda MD at [facility] Left: Ankle SYNTHES 204.814 / / AUTO#3 LOAD #1 Bone Plate 141x3.5mm 12 Hole Tubular One Third With Collar Lcp Ss - [id number] Implanted:Qty: 1 on 11/20/2019 by Guillermo Pineda MD at [facility] Left: Ankle SYNTHES 241.421 / / AUTO#3 LOAD #1 Screw Bone 2.7x18mm Cortical Self Tapping Fully Threaded Hex Head Ss Bx/1ea - [id number] Implanted:Qty: 1 on 11/20/2019 by Guillermo Pineda MD at [facility] Left: Ankle SYNTHES 202.818 / / AUTO#3 LOAD #1 Screw Bone 2.7x20mm Cortical Self Tapping Fully Threaded Hex Head Ss - [id number] Implanted:Qty: 1 on 11/20/2019 by Guillermo Pineda MD at [facility] Left: Ankle SYNTHES 202.820 / / AUTO#3 LOAD #1 Screw Bone 12x3.5mm Compression Ss Locking Self Tapping Full Thread T15 Stardrive Recess - [id number] Implanted:Qty: 1 on 11/20/2019 by Guillermo Pineda MD at [facility] Left: Ankle SYNTHES 212.102 / / AUTO#3 LOAD #1 Screw Bone 3.5x12mm Cortex Self Tapping Fully Threaded Hex Head Ss - [id number] Implanted:Qty: 2 on 11/20/2019 by Guillermo Pineda MD at [facility] Left: Ankle SYNTHES 204.812 / / AUTO#3 LOAD #1 Screw Bone 3.5x45mm Cortex Self Tapping Fully Threaded Hex Head Ss - [id number] Implanted:Qty: 1 on 11/20/2019 by Guillermo Pineda MD at [facility] Left: Ankle SYNTHES 204.845 / / AUTO#3 LOAD #1 Screw Bone 3.5x50mm Cortex Ss Self Tapping Hexagonal Socket - [id number] Implanted:Qty: 2 on 11/20/2019 by Guillermo Pineda MD at [facility] Left: Ankle SYNTHES 204.850 / / AUTO#3 LOAD #1 Washer Bone 7.0mm Sm Screw Cannulated Ss - Ssterilizer 4, Load 3: Sterilized 2020 Implanted:Qty: 2 on 08/25/2020 by Guillermo Pineda MD at [facility] Left: Foot SYNTHES 219.98 / STERILIZER 4, LOAD 3: STERILIZED 2020 / Screw Bone 30x3.5mm Cannulated Ss Full Thread Hexagonal Socket Flat Head - Discontinued Per Supplier - Ssterilizer 4, Load 3: Sterilized 2020 Implanted:Qty: 1 on 08/25/2020 by Guillermo Pineda MD at [facility] STANDARD Left: Foot SYNTHES 205.230 / STERILIZER 4, LOAD 3: STERILIZED 2020 / [place] Suture 4.5mm Arthroscopy Reelx Stt Peek Stainless Steel Core Knotless Sharp Tip Expandable Sterile Bx/5ea - [id number] Implanted:Qty: 1 on 07/07/2017 by Vernon Moses DO at [facility] Right: Shoulder [employer] 05/24/2019 [id number] / / [id number] Graft Bone 1.00ml Biocartilage Synthetic Matrix [place] Extracellular Filler Syringe - [id number] Implanted:Qty: 1 on 11/20/2019 by Guillermo Pineda MD at [facility] Left: Ankle [employer] [place] 04/11/2024 ABS-1010-BC / [id number] / [place] Suture 2.9mmx12.5 Pushlock Biocomposite Swivelock Vented Bx/5ea - Must Be Ordered In Multiples Of 5's - [id number] Implanted:Qty: 2 on 11/20/2019 by Guillermo Pineda MD at [facility] Left: Ankle AR[employer] 09/10/2021 [id number] / / [id number] Kit 1.5cc Graft Bone Augment Synthetic Bioabsorbable - [id number] Implanted:Qty: 1 on 11/20/2019 by Guillermo Pineda MD at [facility] Right: Ankle [employer] 05/12/2021 [id number] / / [id number] Guidewire Pipo 1.99m569gb Non Threaded - Ssterilizer4, Load3: Sterilized Implanted:Qty: 2 on 08/25/2020 by Guillermo Pineda MD at [facility] Left: Foot SYNTHES 900.721 / STERILIZER4, LOAD3: STERILIZED / 3.5mm Cannulated Screws, Fully Threaded Implanted:Qty: 1 on 08/25/2020 by Guillermo Pineda MD at [facility] Left: Foot 205.224 / / Description:Sterilizer # nicole d #3 August 11, 2020 Explanted Type Area Cyber Intelligence Analyst Device Identifier Shelf Expiration Date Model / Serial / Lot Screw Bone 18x3.5mm Compression Ss Locking Self Tapping Full Thread T15 Stardrive Recess - [id number] Implanted:Qty: 1 by Guillermo Pineda MD Explanted:Qty: 1 on 11/20/2019 by Guillermo Pineda MD at [facility] Left: Ankle SYNTHES 212.105 / / AUTO#3 LOAD #1 Screw Bone 3.5x14mm Cortex Self Tapping Fully Threaded Hex Head Ss - [id number] Implanted:Qty: 1 Explanted:Qty: 1 on 11/20/2019 at [facility] Left: Ankle SYNTHES 204.814 / / AUTO#3 LOAD #1 Procedures Procedure Name Priority Date/Time Associated Diagnosis Comments PAP TEST Routine 11/16/2023 12:00 AM EDT from Last 3 Months or Most Recently Relevant to Health Maintenance Results * Pap Test (11/16/2023 12:00 AM EDT) Report [address] [id number] Comic Illustrator: Jennifer Boyer MD TRAVEL PTA Cytology Report FINAL DIAGNOSIS A. PAP SMEAR (THIN PREP) CE: SPECIMEN ADEQUACY: Satisfactory for evaluation; transformation zone present. INTERPRETATION: NEGATIVE FOR INTRAEPITHELIAL LESION OR MALIGNANCY. This specimen was analyzed by the automated ThinPrep Imaging System ([employer] and the selected mishra were reviewed by a bobbin dumper. Electronically Signed Out By: NICOLE Herndon(ASCP) The [...] 59, 66, 68) Note: Testing performed by [email or web address] HR-HPV analysis. Clinical correlation is advised. This HPV test was performed at [facility], [address] [place] [address]. This test has been FDA approved for both SurePath and ThinPrep cervical cytology specimens. The accuracy and precision of this test for all other specimen sources has been verified in the Cytopathology Laboratory of the [facility] and has not been cleared or approved by the U.S. Food and Drug Administration. Clinical correlation is advised. CLINICAL HISTORY Date of Last Menstrual Period: 11-06-2023 Other Clinical Conditions: Screening Pap SPECIMEN SOURCE A: PAP SMEAR (THIN PREP) CE Patient Name: IVAN WILKINSON : 1990 (Age: 33) Sex: F Institution: [facility] Location: [facility] Date of Collection: 11/16/2023 Date of Reported: 11/22/2023 13:06 Results to: Shannon Garcia [facility] Final Diagnosis A. PAP SMEAR (THIN PREP) CE: SPECIMEN ADEQUACY: Satisfactory for evaluation; transformation zone present. INTERPRETATION: NEGATIVE FOR INTRAEPITHELIAL LESION OR MALIGNANCY. This specimen was analyzed by the automated ThinPrep Imaging System ([employer] and the selected mishra were reviewed by a bobbin dumper. [facility] Results\Inter pretation A. PAP SMEAR (THIN PREP) CE: Human Papilloma Virus TestNEGATIVE for high-risk Human Papilloma Virus types 16, 18, 45 and the Other high risk probe set (Includes 31, 33, 35, 39, 51, 52, 56, 58, 59, 66, 68)Note: Testing performed by [employer] HR-HPV analysis. Clinical correlation is advised. This HPV test was performed at [facility], [address] [place] [address]. This test has been FDA approved for both SurePath and ThinPrep cervical cytology specimens. The accuracy and precision of this test for all other specimen sources has been verified in the Cytopathology Laboratory of the [facility] and has not been cleared or approved by the U.S. Food and Drug Administration. Clinical correlation is advised. [facility] Conversion Type (Conversion Source) 11/16/2023 11/17/2023 10:35 AM EDT Shannon Garcia NP CYTOLOGY ORDERABLES Edited Result - Final [facility] [address] [place] [address] from Last 3 Months or Most Recently Relevant to Health Maintenance Insurance [facility] ACO [facility] INSURANCE Advance Directives For more information, please contact: [phone] (9AM - 5PM Sandra/[facility], Tuesday-Tuesday) * Full Code (Presumed) (Latest Code Status on File) Date Activated Date Inactivated Comments 07/07/2017 8:30 AM 07/07/2017 3:58 PM Care Teams Linux Admin Relationship Specialty Start Date End Date Carey Boyd PA [address] [place] [address] PCP - General Health And Human Performance Professor 08/13/20 Additional Source Comments The information contained in this document represents components of the legal health record. It is not the complete legal health record.[facility]
--- OUTSIDE RECORDS SUMMARY | 2025-04-16 09:30 | XMS_ITS | Encounter Summary ---
Author Organization [facility] Address [address] [facility] [address] [place] [address] Phone Care Team Providers Care Kiln Burner Name Role Phone Regulo Lundberg MD Unavailable [phone] Carey Boyd Primary Care Provider [phone] Shanda Wilkinson MD Unavailable Regulo Lundberg MD Unavailable Shanda Wilkinson MD Unavailable Shanda Wilkinson MD Unavailable Encounter Details Date Type Department Care Team (Late st Contact Info) Description 09/08/2020 Ancillary Orders [facility] Department of Orthopaedic Surgery, Foot & Ankle Service [address], [address] [place] [address] Ruiz Sauer PA-C [address] [place] [address] [email or web address] Pain Social History Tobacco Use Types Packs/Day [...] pain documented in this encounter Care Teams Kiln Burner Relationship Specialty Start Date End Date Carey Boyd PA [address] [place] [address] PCP - General Jig Bore Tool Maker 08/13/20 Regulo Lundberg MD [address] [place] [address] Insurance Assigned Provider 04/19/20 09/20/20 Shanda Wilkinson MD [address] [place] [address] Insurance Assigned Provider 09/20/20 11/16/20 Regulo Lundberg MD [address] [place] [address] Insurance Assigned Provider 11/16/20 04/18/22 Shanda Wilkinson MD [address] [place] [address] Insurance Assigned Provider 04/18/22 01/18/23 Shanda Wilkinson MD [address] [place] [phone] Insurance Assigned Provider 04/18/22 02/19/23 documented as of this encounter Additional Source Comments The information contained in this document represents components of the legal health record. It is not the complete legal health record.[facility]
--- OUTSIDE RECORDS SUMMARY | 2025-04-16 09:30 | XMS_ITS | Encounter Summary ---
Author Organization [facility] Address [address] [facility] [address] [place] [address] Phone Care Team Providers Care Waterproof Bag Cutting Machine Operator Name Role Phone Carey Boyd Primary Care Provider + [phone] Regulo Lundberg MD Unavailable [phone] Shanda Wilkinson MD Unavailable [phone] Shanda Wilkinson MD Unavailable [phone] Encounter Details Date Type Department Care Team (Late st Contact Info) Description 10/29/2021 Procedure Pass [facility], [address] [address] Social History Tobacco Use Types Packs/Day Years [...] on filedocumented in this encounter Care Teams Waterproof Bag Cutting Machine Operator Relationship Specialty Start Date End Date Carey Boyd PA [address] [place] [address] PCP - General Aviation Operations Specialist 08/13/20 Regulo Lundberg MD [address] [place] [address] [email or web address] Insurance Assigned Provider 11/16/20 04/18/22 Shanda Wilkinson MD [address] [place] [address] Insurance Assigned Provider 04/18/22 01/18/23 Shanda Wilkinson MD [address] [place] [address] Insurance Assigned Provider 04/18/22 02/19/23 documented as of this encounter Additional Source Comments The information contained in this document represents components of the legal health record. It is not the complete legal health record.[facility]
--- OUTSIDE RECORDS SUMMARY | 2025-04-16 09:30 | XMS_ITS | Encounter Summary ---
Author Organization [facility] Address [address] [facility] [address] [place] [address] Phone Care Team Providers Care Tire Regrooving Machine Operator Name Role Phone Edmund Cope [...] MD Unavailable + Shanda Wilkinson MD Unavailable [phone] Reason for Referral * MRI/CAT Scan - Closed Specialty Diagnoses / Procedures Referred By Contcoco t Referred To Contact Radiology Diagnoses Multiple joint pain Arthralgia, unspecified joint Procedures MRI Hand (Right) Clay Cavazos MD Phone: tel: fax: Referral ID Status Reason Start Date Expiration Date Visits Re quested Visits Authorized [id number] Closed 01/21/2020 07/19/2020 1 1 * MRI/CAT Scan - Closed Specialty Diagnoses / Procedures Referred By Contac t Referred To Contact Radiology Diagnoses Multiple joint pain Arthralgia, unspecified joint Procedures MRI Hand (Left) Clay Cavazos MD Phone: tel: fax: Referral ID Status Reason Start Date Expiration Date Visits Re quested Visits Authorized [id number] Closed 01/03/2020 03/06/2020 1 1 Encounter Details Date Type Department Care Team (Latest Contact Info) Description 01/04/2020 Transcribe Orders Virtual Department [address] [place] [address] Clay Cavazos MD [address] [place] [address] Multiple joint pain (Primary Dx); Arthralgia, unspecified [...] arthritis or other explanation of pain. POS [id number] Narrative 01/26/2020 8:20 AM EDT TECHNIQUE: 1.5 [...] tenosynovitis,arthritis or other explanation of pain. POS [id number] Clay Cavazos MD IMG MR EXTREMITY Final [...] joint documented in this encounter Care Teams Tire Regrooving Machine Operator Relationship Specialty Start Date End Date Edmund Cope MD PCP - General Internal Medicine 05/16/17 01/07/20 Edmund Cope MD PCP - General Internal Medicine 01/08/20 02/14/20 Shannon Garcia, RICARDO [address] [place] [address] [email or web address] PCP - General Family Medicine 02/15/20 08/12/20 Carey Boyd PA [address] [place] [address] PCP - General Build Engineer 08/13/20 dEmund Cope MD [address] [place] [address] Insurance Assigned Provider 09/19/19 04/19/20 Regulo Lundberg MD [address] [place] [phone] Insurance Assigned Provider 04/19/20 09/20/20 Natasha Cerrato, FRITZ [address] [place] [address] PHCM Anesthesiology Crna 08/14/20 08/31/20 Shanda Wilkinson MD [address] [place] [address] Insurance Assigned Provider 09/20/20 11/16/20 Regulo Lundberg MD [address] [place] [address] [email or web address] Insurance Assigned Provider 11/16/20 04/18/22 Shanda Wilkinson MD [address] [place] [address] [email or web address] Insurance Assigned Provider 04/18/22 01/18/23 Shanda Wilkinson MD [address] [place] [address] [email or web address] Insurance Assigned Provider 04/18/22 02/19/23 documented as of this encounter Additional Source Comments The information contained in this document represents components of the legal health record. It is not the complete legal health record.[facility]
--- OUTSIDE RECORDS SUMMARY | 2025-04-16 09:30 | XMS_ITS | Encounter Summary ---
Author Organization [facility] Address [address] [facility] [address] [place] [address] Phone Care Team Providers Care Sewing Supervisor Name Role Phone Edmund Cope MD Unavailable [phone] Shannon Garcia NP Primary Care Provid er Regulo Lundberg MD Unavailable Carey Boyd Primary Care Provider [phone] Natasha Cerrato RN Unavailable Shanda Wilkinson MD Unavailable Regulo Lundberg MD Unavailable Shanda Wilkinson MD Unavailable [phone] Shanda Wilkinson MD Unavailable [phone] Encounter Details Date Type Department Care Team (Late st Contact Info) Description 02/20/2020 Procedure Pass [facility], Ct Scan - [address] [id number] Social History Tobacco Use Types Packs/Day Years [...] on filedocumented in this encounter Care Teams Sewing Supervisor Relationship Specialty Start Date End Date Shannon Garcia NP [address] [place] [address] [email or web address] PCP - General Family Medicine 02/15/20 08/12/20 Carey Boyd PA [address] [place] [address] PCP - General Boiler Blower 08/13/20 Edmund Cope MD [address] [place] [address] Insurance Assigned Provider 09/19/19 04/19/20 Regulo Lundberg MD [address] [place] [address] Insurance Assigned Provider 04/19/20 09/20/20 Natasha Cerrato RN [address] [place] [address] PHCM Tennis Instructor 08/14/20 08/31/20 Shanda Wilkinson MD [address] [place] [address] [email or web address] Insurance Assigned Provider 09/20/20 11/16/20 Regulo Lundberg MD [address] [place] [address] [email or web address] Insurance Assigned Provider 11/16/20 04/18/22 Shanda Wilkinson MD [address] [place] [address] [email or web address] Insurance Assigned Provider 04/18/22 01/18/23 Shanda Wilkinson MD [address] [place] [address] [email or web address] Insurance Assigned Provider 04/18/22 02/19/23 documented as of this encounter Additional Source Comments The information contained in this document represents components of the legal health record. It is not the complete legal health record.[facility]
--- OUTSIDE RECORDS SUMMARY | 2025-04-16 09:30 | XMS_ITS | Encounter Summary ---
Author Organization [facility] Address [address] [address] [facility] [address] [place] [address] Phone Care Team Providers Care Cash Van Salesperson Name Role Phone Edmund Cope MD Primary Care Provider + Edmund Cope MD Unavailable [phone] Edmund Cope MD Primary Care Provider + Shnanon Garcia NP Primary Care Provid er + Regulo Lundberg MD Unavailable + Carey Boyd Primary Care Provider + Natasha Cerrato RN Unavailable Shanda Wilkinson MD Unavailable [phone] Regulo Lundberg MD Unavailable + Shanda Wilkinson MD Unavailable + Shanda Wilkinson MD Unavailable [phone] Encounter Details Date Type Department Care Team (Late st Contact Info) Description 01/04/2020 Procedure Pass [facility], [address] [place], [place] [id number] Social History Tobacco Use Types Packs/Day Years [...] on filedocumented in this encounter Care Teams Cash Van Salesperson Relationship Specialty Start Date End Date Edmund Cope MD [email or web address] PCP - General Internal Medicine 05/16/17 01/07/20 Edmund Cope MD [email or web address] PCP - General Internal Medicine 01/08/20 02/14/20 Shannon Garcia NP [address] [place] [address] [email or web address] PCP - General Family Medicine 02/15/20 08/12/20 Carey Boyd PA [address] [place] [address] PCP - General Wing Coverer 08/13/20 Edmund Cope MD [address] [place] [address] [email or web address] Insurance Assigned Provider 09/19/19 04/19/20 Regulo Lundberg MD [address] [place] [address] [email or web address] Insurance Assigned Provider 04/19/20 09/20/20 Natasha Cerrato, RN [address] [place] [address] [email or web address] [facility] Conservation Educator 08/14/20 08/31/20 Shanda Wilkinson MD [address] [place] [address] [email or web address] Insurance Assigned Provider 09/20/20 11/16/20 Regulo Lundberg MD [address] [place] [address] [email or web address] Insurance Assigned Provider 11/16/20 04/18/22 Shanda Wilkinson MD [address] [place] [address] [email or web address] Insurance Assigned Provider 04/18/22 01/18/23 Shanda Wilkinson MD [address] [place] [address] [email or web address] Insurance Assigned Provider 04/18/22 02/19/23 documented as of this encounter Additional Source Comments The information contained in this document represents components of the legal health record. It is not the complete legal health record.[facility]
--- OUTSIDE RECORDS SUMMARY | 2025-04-16 09:30 | XMS_ITS | Encounter Summary ---
Author Organization [facility] Address [address] [employer] [facility] [address] [place] [address] Phone Care Team Providers Care Contract Forester Name Role Phone Regulo Lundberg MD Unavailable [phone] Carey Boyd Primary Care Provider [phone] Shanda Wilkinson MD Unavailable [phone] Regulo Lundberg MD Unavailable Shanda Wilkinson MD Unavailable Shanda Wilkinson MD Unavailable Reason for Referral * Physical Therapy (Urgent) - Closed Specialty Diagnoses / Procedures Referred By Meche yuan Referred To Contact Physical Therapy Diagnoses Encounter for rehabilitation Left Ankle Procedures Evalaute & Treat Guillermo Pineda MD Phone: tel: fax: [email or web address] [facility] [address] [place] [address] Phone: tel: Referral ID Status Reason Start Date Expiration Date Visits Re quested Visits Authorized [id number] Closed 09/08/2020 12/04/2020 17 17 Encounter Details Date Type Department Care Team (Latest Contact Info) Description 09/08/2020 Transcribe Orders [facility] [address] [place] [address] Guillermo Pineda MD [address] [facility] 2ND [place] [address] [email or web address] Encounter for rehabilitation (Primary Dx) [...] Diagnoses Orde r Schedule Ambulatory referral to [facility] Physical Therapy Outpatient Referral Routine Encounter for rehabilitation Ordered: 09/08/2020 documented as of this encounter Visit Diagnoses Diagnosis Encounter for rehabilitation- Primary documented in this encounter Care Teams Contract Forester Relationship Specialty Start Date End Date Carey Boyd PA [address] [place] [address] PCP - General Cellar Hand 08/13/20 Regulo Lundberg MD [address] [place] [address] Insurance Assigned Provider 04/19/20 09/20/20 Shanda Wilkinson MD [address] [place] [address] [email or web address] Insurance Assigned Provider 09/20/20 11/16/20 Regulo Lundberg MD [address] [place] [address] [email or web address] Insurance Assigned Provider 11/16/20 04/18/22 Shanda Wilkinson MD [address] [place] [address] [email or web address] Insurance Assigned Provider 04/18/22 01/18/23 Shanda Wilkinson MD [address] [place] [address] [email or web address] Insurance Assigned Provider 04/18/22 02/19/23 documented as of this encounter Additional Source Comments The information contained in this document represents components of the legal health record. It is not the complete legal health record.[facility]
--- OUTSIDE RECORDS SUMMARY | 2025-04-16 09:30 | XMS_ITS | Encounter Summary ---
Author Organization [facility] Address [address] [employer] [facility] [address] [place] [address] Phone Care Team Providers Care Manager Registration Name Role Phone Edmund Cope MD Primary Care Provider + Edmund Cope MD Unavailable [phone] Edmund Cope MD Primary Care Provider + Shannon Garcia NP Primary Care Provid er + Regulo Lundberg MD Unavailable + Carey Boyd Primary Care Provider + Natasha Cerrato RN Unavailable Shanda Wilkinson MD Unavailable [phone] Regulo Lundberg MD Unavailable + Shanda Wilkinson MD Unavailable + Shanda Wilkinson MD Unavailable [phone] Encounter Details Date Type Department Care Team (Late st Contact Info) Description 01/04/2020 Procedure Pass [facility], [address] [place], [place] [id number] Social History Tobacco Use Types Packs/Day Years [...] filedocumented in this encounter Care Teams Manager Registration Relationship Specialty Start Date End Date Edmund Cope MD [email or web address] PCP - General Internal Medicine 05/16/17 01/07/20 Edmund Cope MD [email or web address] PCP - General Internal Medicine 01/08/20 02/14/20 Shannon Garcia NP [address] [place] [address] [email or web address] PCP - General Family Medicine 02/15/20 08/12/20 Carey Boyd PA [address] [place] [address] PCP - General Bacteriologist Fishery 08/13/20 Edmund Cope MD [address] [place] [address] [email or web address] Insurance Assigned Provider 09/19/19 04/19/20 Regulo Lundberg MD [address] [place] [address] [email or web address] Insurance Assigned Provider 04/19/20 09/20/20 Natasha Cerrato, RN 10 [place] [address] [email or web address] [facility] Meat Carrier 08/14/20 08/31/20 Shanda Wilkinson MD [address] [place] [address] [email or web address] Insurance Assigned Provider 09/20/20 11/16/20 Regulo Lundberg MD [address] [place] [address] [email or web address] Insurance Assigned Provider 11/16/20 04/18/22 Shanda Wilkinson MD [address] [place] [address] [email or web address] Insurance Assigned Provider 04/18/22 01/18/23 Shanda Wilkinson MD [address] [place] [address] [email or web address] Insurance Assigned Provider 04/18/22 02/19/23 documented as of this encounter Additional Source Comments The information contained in this document represents components of the legal health record. It is not the complete legal health record.[facility]
--- OUTSIDE RECORDS SUMMARY | 2025-04-16 09:30 | XMS_ITS | Encounter Summary ---
Author Organization [facility] Address [address] [employer] [address] [facility] [address] [place] [address] Phone Care Team Providers Care Bark Grinder Name Role Phone Edmund Cope MD Unavailable [phone] Edmund Cope MD Primary Care Provider [phone] Shannon Garcia NP Primary Care Provid er Regulo Lundberg MD Unavailable [phone] Carey Boyd Primary Care Provider [phone] Natasha Cerrato RN Unavailable Shanda Wilkinson MD Unavailable [phone] Regulo Lundberg MD Unavailable [phone] Shanda Wilkinson MD Unavailable [phone] Shanda Wilkinson MD Unavailable [phone] Encounter Details Date Type Department Care Team (Late st Contact Info) Description 01/15/2020 Ancillary Orders [facility]Outside Imaging [address] [place], [place] [phone] System, Provider Not In, [facility] [address] [address] Social History Tobacco Use Types Packs/Day Years [...] on filedocumented in this encounter Care Teams Bark Grinder Relationship Specialty Start Date End Date Edmund Cope MD [address] [place] [address] [email or web address] PCP - General Internal Medicine 01/08/20 02/14/20 Shannon Garcia NP [address] [place] [address] [email or web address] PCP - General Family Medicine 02/15/20 08/12/20 Carey Boyd PA [address] [place] [address] PCP - General Seafood Processor 08/13/20 Edmund Cope MD [address] [place] [phone] Insurance Assigned Provider 09/19/19 04/19/20 Regulo Lundberg MD [address] [place] [phone] Insurance Assigned Provider 04/19/20 09/20/20 Natasha Cerrato, RN [address] [place] [address] [facility] Auxiliary Operator 08/14/20 08/31/20 Shanda Wilkinson MD [address] [place] [phone] Insurance Assigned Provider 09/20/20 11/16/20 Regulo Lundberg MD [address] [place] [phone] Insurance Assigned Provider 11/16/20 04/18/22 Shanda Wilkinson MD [address] [place] [phone] Insurance Assigned Provider 04/18/22 01/18/23 Shanda Wilkinson MD [address] [place] [address] Insurance Assigned Provider 04/18/22 02/19/23 documented as of this encounter Additional Source Comments The information contained in this document represents components of the legal health record. It is not the complete legal health record.[facility]
--- OUTSIDE RECORDS SUMMARY | 2025-04-16 09:30 | XMS_ITS | Encounter Summary ---
Author Organization [facility] Address [address] [facility] [address] [place] [address] Phone Care Team Providers Care Chief Bank Examiner Name Role Phone Edmund Cope MD Unavailable [phone] Shannon Garcia NP Primary Care Provid er Regulo Lundberg MD Unavailable [phone] Carey Boyd Primary Care Provider Natasha Cerrato RN Unavailable Shanda Wilkinson MD Unavailable Regulo Lundberg MD Unavailable [phone] Shanda Wilkinson MD Unavailable [phone] Shanda Wilkinson MD Unavailable [phone] Reason for Referral * Outpatient Procedure - Closed Specialty Diagnoses / Procedures Referred By Meche yuan Referred To Contact Radiology Diagnoses Nausea Vomiting without nausea, intractability of vomiting not specified, unspecified vomiting type Abnormal weight loss Procedures NM Gastric Emptying Moise Gomez MD Phone: tel: fax: mailto: Referral ID Status Reason Start Date Expiration Date Visits Re quested Visits Authorized [id number] Closed 03/11/2020 03/11/2021 1 1 Encounter Details Date Type Department Care Team (Latest Contact Info) Description 03/11/2020 Transcribe Orders Virtual Department 30 [place] [address] Moise Gomez MD [address] [phone] [email or web address] Nausea (Primary Dx); Vomiting without [...] activity is still present in the stomach (madcyb92-96%) At two hours 45% of activity is still present in the stomach (-39%) At four hours is 2.5% of activity is still present in the stomach (normal0-10%) IMPRESSION: Normal gastric emptying. POS - [id number] Moise Gomez MD [facility] Final Result documented in this encounter Visit Diagnoses Diagnosis Nausea- Primary Nausea alone Vomiting without nausea, intractability of vomiting not specified, unspecified vomiting type Abnormal weight loss Loss of weight Nausea Nausea alone Vomiting without nausea, intractability of vomiting not specified, unspecified vomiting type Abnormal weight loss Loss of weight documented in this encounter Care Teams Chief Bank Examiner Relationship Specialty Start Date End Date Shannon Garcia NP [address] [place] [address] [email or web address] PCP - General Family Medicine 02/15/20 08/12/20 Carey Boyd PA [address] [place] [address] PCP - General Apprentice Painter Neckties 08/13/20 Edmund Cope MD [address] [place] [address] [email or web address] Insurance Assigned Provider 09/19/19 04/19/20 Regulo Lundberg MD [address] [place] [phone] Insurance Assigned Provider 04/19/20 09/20/20 Natasha Cerrato, RN 10 [place] [address] [email or web address] [facility] Practical Ministries Professor 08/14/20 08/31/20 Shanda Wilkinson MD [address] [place] [phone] Insurance Assigned Provider 09/20/20 11/16/20 Regulo Lundberg MD [address] [place] [phone] Insurance Assigned Provider 11/16/20 04/18/22 Shanda Wilkinson MD [address] [place] [phone] Insurance Assigned Provider 04/18/22 01/18/23 Shanda Wilkinson MD [address] [place] [phone] Insurance Assigned Provider 04/18/22 02/19/23 documented as of this encounter Additional Source Comments The information contained in this document represents components of the legal health record. It is not the complete legal health record.[facility]
--- OUTSIDE RECORDS SUMMARY | 2025-04-16 09:30 | XMS_ITS | Encounter Summary ---
Author Organization [facility] Address [address] [facility] [address] [place] [address] Phone Care Team Providers Care Aircraft Sheet Metal Mechanic Name Role Phone Edmund Cope MD [...] Treat Guillermo Pineda MD Phone: tel: fax: mailto:[email or web address] [facility] [address] [place] [address] Phone: tel: Referral ID Status Reason Start Date Expiration Date Visits Re quested Visits Authorized [id number] Closed 12/06/2019 06/12/2020 20 20 Encounter Details Date Type Department Care Team (Latest Contact Info) Description 12/06/2019 Transcribe Orders [facility] 4 [place] [address] Guillermo Pineda MD [address] [facility] 2[address] [place] [address] [email or web address] Encounter for rehabilitation (Primary Dx) [...] Diagnoses Orde r Schedule Ambulatory referral to [facility] Physical Therapy Outpatient Referral Routine Encounter for rehabilitation Ordered: 12/06/2019 documented as of this encounter Visit Diagnoses Diagnosis Encounter for rehabilitation- Primary documented in this encounter Care Teams Aircraft Sheet Metal Mechanic Relationship Specialty Start Date End Date Edmund Cope MD PCP - General Internal Medicine 05/16/17 01/07/20 Edmund Cope MD PCP - General Internal Medicine 01/08/20 02/14/20 Shannon Garcia NP [address] [place] [address] [email or web address] PCP - General Family Medicine 02/15/20 08/12/20 Carey Boyd PA [address] [place] [address] PCP - General Jewel Sorter 08/13/20 Edmund Cope MD [address] [place] [address] [email or web address] Insurance Assigned Provider 09/19/19 04/19/20 Regulo Lundberg MD [address] [place] [phone] Insurance Assigned Provider 04/19/20 09/20/20 Natasha Cerrato, FRITZ [address] [place] [address] PHCM Sales Manager [place] 08/14/20 08/31/20 Shanda Wilkinson MD [address] [place] [address] Insurance Assigned Provider 09/20/20 11/16/20 Regulo Lundberg MD [address] [place] [phone] Insurance Assigned Provider 11/16/20 04/18/22 Shanda Wilkinson MD [address] [place] [address] [email or web address] Insurance Assigned Provider 04/18/22 01/18/23 Shanda Wilkinson MD [address] [place] [address] [email or web address] Insurance Assigned Provider 04/18/22 02/19/23 documented as of this encounter Additional Source Comments The information contained in this document represents components of the legal health record. It is not the complete legal health record.[facility]
--- OUTSIDE RECORDS SUMMARY | 2025-04-16 09:31 | XMS_ITS | Encounter Summary ---
Author Organization [facility] Address [address] [facility] [address] [place] [address] Phone Care Team Providers Care Bank Secrecy Act Officer Name Role Phone Edmund Cope MD Primary [...] MD Unavailable + Shanda Wilkinson MD Unavailable [phone] Encounter Details Date Type Department Care Team (Latest Contact Info) Description 01/24/2018 Transcribe Orders Virtual Department 30 [place], [place] [phone] Guillermo Villar MD [address] [place] [address] [email or web address] Elbow pain, left (Primary Dx) [...] arm documented in this encounter Care Teams Bank Secrecy Act Officer Relationship Specialty Start Date End Date Edmund Cope MD [email or web address] PCP - General Internal Medicine 05/16/17 01/07/20 Edmund Cope MD [email or web address] PCP - General Internal Medicine 01/08/20 02/14/20 Shannon Garcia NP [address] [place] [address] [email or web address] PCP - General Family Medicine 02/15/20 08/12/20 Carey Boyd PA [address] [place] [address] PCP - General Refractory Specialist 08/13/20 Edmund Cope MD [address] [place] [address] [email or web address] Insurance Assigned Provider 10/14/18 03/24/19 Edmund Cope MD [address] [place] [phone] [email or web address] Insurance Assigned Provider 09/19/19 04/19/20 Regulo Lundberg MD [address] [place] [address] [email or web address] Insurance Assigned Provider 04/19/20 09/20/20 Natasha Cerrato RN [address] [place] [address] [email or web address] Firefighter Type One 08/14/20 08/31/20 Shanda Wilkinson MD [address] [place] [address] [email or web address] Insurance Assigned Provider 09/20/20 11/16/20 Regulo Lundberg MD [address] [place] [address] [email or web address] Insurance Assigned Provider 11/16/20 04/18/22 Shanda Wilkinson MD [address] [place] [address] [email or web address] Insurance Assigned Provider 04/18/22 01/18/23 Shanda Wilkinson MD [address] [place] [phone] [email or web address] Insurance Assigned Provider 04/18/22 02/19/23 documented as of this encounter Additional Source Comments The information contained in this document represents components of the legal health record. It is not the complete legal health record.[facility]
--- OUTSIDE RECORDS SUMMARY | 2025-04-16 09:31 | XMS_ITS | Encounter Summary ---
Author Organization [facility] Address [address] [employer] [facility] [address] [place] [address] Phone Care Team Providers Care Journeyman Pipe Fitter Name Role Phone Edmund Cope MD Primary [...] MD Unavailable + Shanda Wilkinson MD Unavailable [phone] Encounter Details Date Type Department Care Team (Late st Contact Info) Description 08/09/2018 Ancillary Orders Virtual Department 30 [place], [place] [phone] Aniya Jimenez MD [address] [facility] [address] [place] [address] Abnormal involuntary movement Social History Tobacco Use [...] Modality EEG Narrative 08/14/2018 3:34 PM EST [facility] ELECTROENCEPHALOGRAPHY (EEG) LAB INTRODUCTION: The patient [...] persistent focal asymmetries occurred. MD Sameer Berrios [facility] Aniya Jimenez MD NEUROLOGY ORDERABLES Fi nal Result documented in this encounter Visit Diagnoses Diagnosis Abnormal involuntary movement Abnormal involuntary movements Abnormal involuntary movement Abnormal involuntary movements documented in this encounter Care Teams Journeyman Pipe Fitter Relationship Specialty Start Date End Date Edmund Cope MD [email or web address] PCP - General Internal Medicine 05/16/17 01/07/20 Edmund Cope MD [email or web address] PCP - General Internal Medicine 01/08/20 02/14/20 Shannon Garcia NP [address] [place] [address] [email or web address] PCP - General Family Medicine 02/15/20 08/12/20 Carey Boyd PA [address] [place] [address] PCP - General Rail Project Engineer 08/13/20 Edmund Cope MD [address] [place] [address] [email or web address] Insurance Assigned Provider 10/14/18 03/24/19 Edmund Cope MD [address] [place] [address] [email or web address] Insurance Assigned Provider 09/19/19 04/19/20 Regulo Lundberg MD [address] [place] [address] [email or web address] Insurance Assigned Provider 04/19/20 09/20/20 Natasha Cerrato, RN [address] [place] [address] [email or web address] [facility] Critical Power Technician 08/14/20 08/31/20 Shanda Wilkinson MD [address] [place] [address] [email or web address] Insurance Assigned Provider 09/20/20 11/16/20 Regulo Lundberg MD [address] [place] [address] [email or web address] Insurance Assigned Provider 11/16/20 04/18/22 Shanda Wilkinson MD [address] [place] [address]22 Insurance Assigned Provider 04/18/22 01/18/23 Shanda Wilkinson MD [address] [place] [address] [email or web address] Insurance Assigned Provider 04/18/22 02/19/23 documented as of this encounter Additional Source Comments The information contained in this document represents components of the legal health record. It is not the complete legal health record.[facility]
--- OUTSIDE RECORDS SUMMARY | 2025-04-16 09:31 | XMS_ITS | Encounter Summary ---
Author Organization [facility] Address [address] [facility] [address] [place] [address] Phone Care Team Providers Care Automation Controls Engineer Name Role Phone Edmund Cope MD [...] MD Unavailable + Shanda Wilkinson MD Unavailable [phone] Encounter Details Date Type Department Care Team (Late st Contact Info) Description 07/07/2017 Procedure Pass [place] Admitting Dept - Virtual Department 30 [place], [place] [phone] Social History Tobacco Use Types Packs/Day Years [...] on filedocumented in this encounter Care Teams Automation Controls Engineer Relationship Specialty Start Date End Date Edmund Cope MD [email or web address] PCP - General Internal Medicine 05/16/17 01/07/20 Edmund Cope MD [email or web address] PCP - General Internal Medicine 01/08/20 02/14/20 Shannon Garcia NP [address] [place] [address] [email or web address] PCP - General Family Medicine 02/15/20 08/12/20 Carey Boyd PA [address] [place] [phone] PCP - General Director Of Teaching And Learning 08/13/20 Edmund Cope MD [address] [place] [address] [email or web address] Insurance Assigned Provider 10/14/18 03/24/19 Edmund Cope MD [address] [place] [address] [email or web address] Insurance Assigned Provider 09/19/19 04/19/20 Regulo Lundberg MD [address] [place] [address] [email or web address] Insurance Assigned Provider 04/19/20 09/20/20 Natasha Cerrato RN 10 [place] [address] [email or web address] Head Turning Machine Operator 08/14/20 08/31/20 Shanda Wilkinson MD [address] [place] [address] [email or web address] Insurance Assigned Provider 09/20/20 11/16/20 Regulo Lundberg MD [address] [place] [phone] [email or web address] Insurance Assigned Provider 11/16/20 04/18/22 Shanda Wilkinson MD [address] [place] [address] [email or web address] Insurance Assigned Provider 04/18/22 01/18/23 Shanda Wilkinson MD [address] [place] [address] [email or web address] Insurance Assigned Provider 04/18/22 02/19/23 documented as of this encounter Additional Source Comments The information contained in this document represents components of the legal health record. It is not the complete legal health record.[facility]
--- OUTSIDE RECORDS SUMMARY | 2025-04-16 09:31 | XMS_ITS | Encounter Summary ---
Author Organization [facility] Address [address] [employer] [facility] [address] [place] [address] Phone Care Team Providers Care Hand Trimmer Name Role Phone Shannon Garcia NP Primary Care Provid er Regulo Lundberg MD Unavailable Carey Boyd Primary Care Provider [phone] Natasha Cerrato RN Unavailable Shanda Wilkinson MD Unavailable [phone] Regulo Lundberg MD Unavailable [phone] Shanda Wilkinson MD Unavailable [phone] Shanda Wilkinson MD Unavailable [phone] Encounter Details Date Type Department Care Team (Late st Contact Info) Description 05/15/2020 Procedure Pass [facility] [address] [place], [place] [phone] Social History Tobacco Use Types Packs/Day Years [...] on filedocumented in this encounter Care Teams Hand Trimmer Relationship Specialty Start Date End Date Shannon Garcia NP [address] [place] [address] [email or web address] PCP - General Family Medicine 02/15/20 08/12/20 Carey Boyd PA [address] [place] [address] PCP - General Carpentry Supervisor 08/13/20 Regulo Lundberg MD [address] [place] [address] Insurance Assigned Provider 04/19/20 09/20/20 Natasha Cerrato, FRITZ [address] [place] [address] PHCM Venue Manager 08/14/20 08/31/20 Shanda Wilkinson MD [address] [place] [address] 24990 Insurance Assigned Provider 09/20/20 11/16/20 Regulo Lundberg MD [address] [place] [address] [email or web address] Insurance Assigned Provider 11/16/20 04/18/22 Shanda Wilkinson MD [address] [place] [address] [email or web address] Insurance Assigned Provider 04/18/22 01/18/23 Shanda Wilkinson MD [address] [place] [address] [email or web address] Insurance Assigned Provider 04/18/22 02/19/23 documented as of this encounter Additional Source Comments The information contained in this document represents components of the legal health record. It is not the complete legal health record.[facility]
--- OUTSIDE RECORDS SUMMARY | 2025-04-16 09:31 | XMS_ITS | Encounter Summary ---
Author Organization [facility] Address [address] [facility] [address] [place] [address] Phone Care Team Providers Care Data Entry Coordinator Name Role Phone Carey Boyd Primary Care Provider Regulo Lundberg MD Unavailable [phone] Shanda Wilkinson MD Unavailable [phone] Shanda Wilkinson MD Unavailable [phone] Encounter Details Date Type Department Care Team (Late st Contact Info) Description 12/08/2021 Procedure Pass [facility] Interventional X-ray Imaging, [place] [address] [place] [address] Social History Tobacco Use Types Packs/Day Years [...] on filedocumented in this encounter Care Teams Data Entry Coordinator Relationship Specialty Start Date End Date Carey Boyd PA [address] [place] [address] PCP - General Conduit Worker 08/13/20 Regulo Lundberg MD [address] [place] [address] [email or web address] Insurance Assigned Provider 11/16/20 04/18/22 Shanda Wilkinson MD [address] [place] [address] Insurance Assigned Provider 04/18/22 01/18/23 Shanda Wilkinson MD [address] [place] [address] Insurance Assigned Provider 04/18/22 02/19/23 documented as of this encounter Additional Source Comments The information contained in this document represents components of the legal health record. It is not the complete legal health record.[facility]
--- OUTSIDE RECORDS SUMMARY | 2025-04-16 09:31 | XMS_ITS | Encounter Summary ---
Author Organization [facility] Address [address] [facility] [address] [place] [address] Phone Care Team Providers Care Blood Bank Order Control Clerk Name Role Phone Carey Boyd Primary Care Provider [phone] Shanda Wilkinson MD Unavailable Encounter Details Date Type Department Care Team (Late st Contact Info) Description 01/24/2023 Procedure Pass [address] [place] [address] Social History Tobacco Use Types Packs/Day Years [...] on filedocumented in this encounter Care Teams Blood Bank Order Control Clerk Relationship Specialty Start Date End Date Carey Boyd PA [address] [place] [address] PCP - General Personal Clothing Laundry Aide 08/13/20 Shanda Wilkinson MD [address] [place] [address] [email or web address] Insurance Assigned Provider 04/18/22 02/19/23 documented as of this encounter Additional Source Comments The information contained in this document represents components of the legal health record. It is not the complete legal health record.[facility]
--- OUTSIDE RECORDS SUMMARY | 2025-04-16 09:31 | XMS_ITS | Encounter Summary ---
Author Organization [facility] Address [address] [facility] [address] [place] [address] Phone Care Team Providers Care Civil Engineer Helper Name Role Phone Carey Boyd Primary Care Provider + [phone] Regulo Lundberg MD Unavailable [phone] Shanda Wilkinson MD Unavailable [phone] Shanda Wilkinson MD Unavailable [phone] Encounter Details Date Type Department Care Team (Late st Contact Info) Description 01/27/[address] [facility] [address] [place] [address] Social History Tobacco Use Types [...] filedocumented in this encounter Care Teams Civil Engineer Helper Relationship Specialty Start Date End Date Carey Boyd PA [address] [place] [address] PCP - General Assembler Ping Pong Table 08/13/20 Regulo Lundberg MD [address] [place] [address] [email or web address] Insurance Assigned Provider 11/16/20 04/18/22 Shanda Wilkinson MD [address] [place] [address] Insurance Assigned Provider 04/18/22 01/18/23 Shanda Wilkinson MD [address] [place] [address] Insurance Assigned Provider 04/18/22 02/19/23 documented as of this encounter Additional Source Comments The information contained in this document represents components of the legal health record. It is not the complete legal health record.[facility]
--- OUTSIDE RECORDS SUMMARY | 2025-04-16 09:31 | XMS_ITS | Encounter Summary ---
Author Organization [facility] Address [address] [facility] [address] [place] [address] Phone Care Team Providers Care Hand Stripper Name Role Phone Edmund Cope MD Primary [...] MD Unavailable + Shanda Wilkinson MD Unavailable [phone] Encounter Details Date Type Department Care Team (Late st Contact Info) Description 05/13/2017 Ancillary Orders Virtual Department [address] [place], [place] [phone] Carey Boyd PA [address] [place] [address] [place] [address] Right shoulder pain, unspecified chronicity Social History [...] be due to mild bursitis. POS - [id number] Narrative 05/19/2017 10:31 AM EST HISTORY: Pain, [...] be due to mild bursitis. POS - [id number] Carey Boyd OR IMG MR EXTREMITY Final Res ult documented in this encounter Visit Diagnoses Diagnosis Right shoulder pain, unspecified chronicity Right shoulder pain, unspecified chronicity documented in this encounter Care Teams Hand Stripper Relationship Specialty Start Date End Date Edmund Cope MD PCP - General Internal Medicine 05/16/17 01/07/20 Edmund Cope MD PCP - General Internal Medicine 01/08/20 02/14/20 Shannon Garcia NP [address] [place] [address] [email or web address] PCP - General Family Medicine 02/15/20 08/12/20 Carey Boyd PA [address] [place] [address] PCP - General Shellfish Farming Supervisor 08/13/20 Edmund Cope MD [address] [place] [address] [email or web address] Insurance Assigned Provider 10/14/18 03/24/19 Edmund Cope MD [address] [place] [address] [email or web address] Insurance Assigned Provider 09/19/19 04/19/20 Regulo Lundberg MD [address] [place] [address] [email or web address] Insurance Assigned Provider 04/19/20 09/20/20 Natasha Cerrato RN [address] [place] [address] [email or web address] PHC Superintendent Pressure 08/14/20 08/31/20 Shanda Wilkinson MD [address] [place] [address] [email or web address] Insurance Assigned Provider 09/20/20 11/16/20 Regulo Lundberg MD [address] [place] [address] [email or web address] Insurance Assigned Provider 11/16/20 04/18/22 Shanda Wilkinson MD [address] [place] [address] [email or web address] Insurance Assigned Provider 04/18/22 01/18/23 Shanda Wilkinson MD [address] [place] [address] [email or web address] Insurance Assigned Provider 04/18/22 02/19/23 documented as of this encounter Additional Source Comments The information contained in this document represents components of the legal health record. It is not the complete legal health record.[facility]
--- OUTSIDE RECORDS SUMMARY | 2025-04-16 09:31 | XMS_ITS | Encounter Summary ---
Author Organization [facility] Address [address] [employer] [facility] [address] [place] [address] Phone Care Team Providers Care Recovery Engineer Name Role Phone Carey Boyd Primary Care Provider + [phone] Regulo Lundberg MD Unavailable [phone] Shanda Wilkinson MD Unavailable [phone] Shanda Wilkinson MD Unavailable [phone] Encounter Details Date Type Department Care Team (Late st Contact Info) Description 01/19/2022 Procedure Pass [facility], [address] [address] Social History Tobacco Use Types Packs/Day Years [...] on filedocumented in this encounter Care Teams Recovery Engineer Relationship Specialty Start Date End Date Carey Boyd PA [address] [place] [address] PCP - General Finisher Plate 08/13/20 Regulo Lundberg MD [address] [place] [address] [email or web address] Insurance Assigned Provider 11/16/20 04/18/22 Shanda Wilkinson MD [address] [place] [address] Insurance Assigned Provider 04/18/22 01/18/23 Shanda Wilkinson MD [address] [place] [address] Insurance Assigned Provider 04/18/22 02/19/23 documented as of this encounter Additional Source Comments The information contained in this document represents components of the legal health record. It is not the complete legal health record.[facility]
--- OUTSIDE RECORDS SUMMARY | 2025-04-16 09:31 | XMS_ITS | Encounter Summary ---
Author Organization [facility] Address [address] [facility] [address] [place] [address] Phone Care Team Providers Care Starter Cup Powder Mixer Name Role Phone Edmund Cope MD Primary [...] MD Unavailable + Shanda Wilkinson MD Unavailable [phone] Encounter Details Date Type Department Care Team (Late st Contact Info) Description 05/13/2017 Procedure Pass [facility], [address] [id number] Social History Tobacco Use Types Packs/Day Years [...] on filedocumented in this encounter Care Teams Starter Cup Powder Mixer Relationship Specialty Start Date End Date Edmund Cope MD [email or web address] PCP - General Internal Medicine 05/16/17 01/07/20 Edmund Cope MD [email or web address] PCP - General Internal Medicine 01/08/20 02/14/20 Shannon Garcia NP [address] [place] [address] [email or web address] PCP - General Family Medicine 02/15/20 08/12/20 Carey Boyd PA [address] [place] [address] PCP - General Metal Engraver 08/13/20 Edmund Cope MD [address] [place] [address] [email or web address] Insurance Assigned Provider 10/14/18 03/24/19 Edmund Cope MD [address] [place] [address] Insurance Assigned Provider 09/19/19 04/19/20 Regulo Lundberg MD [address] [place] [address] Insurance Assigned Provider 04/19/20 09/20/20 Natasha Cerrato, RN [address] [place] [address] [facility] Extract Operator 08/14/20 08/31/20 Shanda Wilkinson MD [address] [place] [address] Insurance Assigned Provider 09/20/20 11/16/20 Regulo Lundberg MD [address] [place] [address] Insurance Assigned Provider 11/16/20 04/18/22 Shanda Wilkinson MD [address] [place] [address] Insurance Assigned Provider 04/18/22 01/18/23 Shanda Wilkinson MD [address] [place] [address] Insurance Assigned Provider 04/18/22 02/19/23 documented as of this encounter Additional Source Comments The information contained in this document represents components of the legal health record. It is not the complete legal health record.[facility]
--- OUTSIDE RECORDS SUMMARY | 2025-04-16 09:31 | XMS_ITS | Encounter Summary ---
Author Organization [facility] Address [address] [facility] [address] [place] [address] Phone Care Team Providers Care Director Supply Chain Name Role Phone Carey Boyd Primary Care Provider + [phone] Regulo Lundberg MD Unavailable [phone] Shanda Wilkinson MD Unavailable [phone] hSanda Wilkinson MD Unavailable [phone] Encounter Details Date Type Department Care Team (Late st Contact Info) Description 12/08/2021 Procedure Pass [facility] MR Imaging, [place] [address] [place] [address] Social History Tobacco Use Types Packs/Day Years [...] filedocumented in this encounter Care Teams Director Supply Chain Relationship Specialty Start Date End Date Carey Boyd PA [address] [place] [address] PCP - General End Packer 08/13/20 Regulo Lundberg MD [address] [place] [address] [email or web address] Insurance Assigned Provider 11/16/20 04/18/22 Shanda Wilkinson MD [address] [place] [address] Insurance Assigned Provider 04/18/22 01/18/23 Shanda Wilkinson MD [address] [place] [address] Insurance Assigned Provider 04/18/22 02/19/23 documented as of this encounter Additional Source Comments The information contained in this document represents components of the legal health record. It is not the complete legal health record.[facility]
--- OUTSIDE RECORDS SUMMARY | 2025-04-16 09:31 | XMS_ITS | Encounter Summary ---
Author Organization [facility] Address [address] [facility] [address] [place] [address] Phone Care Team Providers Care Radio Mechanic Helper Name Role Phone Carey Boyd Primary Care Provider Regulo Lundberg MD Unavailable [phone] Shanda Wilkinson MD Unavailable [phone] Shanda Wilkinson MD Unavailable Reason for Referral * Physical Therapy (Routine) - Closed Specialty Diagnoses / Procedures Referred By Meche t Referred To Contact Physical Therapy Diagnoses Encounter for rehabilitation Shannon Garcia NP [address] [place] [address] Phone: tel: fax: [email or web address] [address] [place] [address] Phone: tel: Referral ID Status Reason Start Date Expiration Date Visits Re quested Visits Authorized [id number] Closed 02/13/2021 02/13/2022 1 1 Encounter Details Date Type Department Care Team (Latest Contact Info) Description 02/13/2021 Transcribe Orders [facility] [address] [place] [address] Shannon Garcia NP [address] [place] [address] [place] [phone] [email or web address] Encounter for rehabilitation (Primary Dx) Social History [...] Diagnoses Orde r Schedule Ambulatory referral to [facility] Physical Therapy Outpatient Referral Routine Encounter for rehabilitation Ordered: 02/13/2021 documented as of this encounter Visit Diagnoses Diagnosis Encounter for rehabilitation- Primary documented in this encounter Care Teams Radio Mechanic Helper Relationship Specialty Start Date End Date Carey Boyd PA [address] [place] [address] PCP - General Spindle Plumber 08/13/20 Regulo Lundberg MD [address] [place] [address] Insurance Assigned Provider 11/16/20 04/18/22 Shanda Wilkinson MD [address] [place] [address] Insurance Assigned Provider 04/18/22 01/18/23 Shanda Wilkinson MD [address] [place] [address] [email or web address] Insurance Assigned Provider 04/18/22 02/19/23 documented as of this encounter Additional Source Comments The information contained in this document represents components of the legal health record. It is not the complete legal health record.[facility]
--- OUTSIDE RECORDS SUMMARY | 2025-04-16 09:31 | XMS_ITS | Encounter Summary ---
Author Organization [facility] Address [address] [employer] [facility] [address] [place] [address] Phone Care Team Providers Care Doctor Of Osteopathy Name Role Phone Edmund Cope MD Primary [...] laterality System, Provider Not In, [employer] [address] [address] Phone: tel: Referral ID Status Reason Start Date Expiration Date Visits Re quested Visits Authorized [id number] Closed 09/01/2018 09/02/2019 1 1 Encounter Details Date Type Department Care Team (Latest Contact Info) Description 09/01/2018 Transcribe Orders [facility]UROLOGY VIRTUAL DEPARTMENT [address] [place] [id number] Self-Referred, Patient Myoclonus (Primary Dx); Chronic ankle [...] Diagnoses Orde r Schedule Ambulatory referral to [facility] Neurology Outpatient Referral Routine Myoclonus Chronic ankle pain, unspecified laterality Ordered: 09/01/2018 documented as of this encounter Visit Diagnoses Diagnosis Myoclonus- Primary Chronic ankle pain, unspecified laterality documented in this encounter Care Teams Doctor Of Osteopathy Relationship Specialty Start Date End Date Edmund Cope MD [email or web address] PCP - General Internal Medicine 05/16/17 01/07/20 Edmund Cope MD PCP - General Internal Medicine 01/08/20 02/14/20 Shannon Garcia NP [address] [place] [address] [email or web address] PCP - General Family Medicine 02/15/20 08/12/20 Carey Boyd PA [address] [place] [address] PCP - General Dial Printer 08/13/20 Edmund Cope MD [address] [place] [address] [email or web address] Insurance Assigned Provider 10/14/18 03/24/19 Edmund Cope MD [address] [place] [address] [email or web address] Insurance Assigned Provider 09/19/19 04/19/20 Regulo Lundberg MD [address] [place] [address] [email or web address] Insurance Assigned Provider 04/19/20 09/20/20 Natasha Cerrato RN [address] [place] [address] [email or web address] PHC Fishing Tool Supervisor 08/14/20 08/31/20 Shanda Wilkinson MD [address] [place] [address] [email or web address] Insurance Assigned Provider 09/20/20 11/16/20 Regulo Lundberg MD [address] [place] [address] [email or web address] Insurance Assigned Provider 11/16/20 04/18/22 Shanda Wilkinson MD [address] [place] [address] [email or web address] Insurance Assigned Provider 04/18/22 01/18/23 Shanda Wilkinson MD [address] [place] [address] [email or web address] Insurance Assigned Provider 04/18/22 02/19/23 documented as of this encounter Additional Source Comments The information contained in this document represents components of the legal health record. It is not the complete legal health record.[facility]
--- OUTSIDE RECORDS SUMMARY | 2025-04-16 09:31 | XMS_ITS | Encounter Summary ---
Author Organization [facility] Address [address] [facility] [address] [place] [address] Phone Care Team Providers Care Caul Dresser Name Role Phone Edmund Cope MD Primary [...] MD Unavailable + Shanda Wilkinson MD Unavailable [phone] Encounter Details Date Type Department Care Team (Late st Contact Info) Description 11/15/2018 Procedure Pass [facility], [address] [phone] Social History Tobacco Use Types Packs/Day Years [...] on filedocumented in this encounter Care Teams Caul Dresser Relationship Specialty Start Date End Date Edmund Cope MD [email or web address] PCP - General Internal Medicine 05/16/17 01/07/20 Edmund Cope MD [email or web address] PCP - General Internal Medicine 01/08/20 02/14/20 Shannon Garcia NP [address] [place] [address] [email or web address] PCP - General Family Medicine 02/15/20 08/12/20 Carey Boyd PA [address] [place] [address] PCP - General Candle Wrapping Machine Operator 08/13/20 Edmund Cope MD [address] [place] [address] [email or web address] Insurance Assigned Provider 10/14/18 03/24/19 Edmund Cope MD [address] [place] [address] [email or web address] Insurance Assigned Provider 09/19/19 04/19/20 Regulo Lundberg MD [address] [place] [address] [email or web address] Insurance Assigned Provider 04/19/20 09/20/20 Natasha Cerrato RN [address] [place] [address] [email or web address] Microstrategy Architect 08/14/20 08/31/20 Shanda Wilkinson MD [address] [place] [address] [email or web address] Insurance Assigned Provider 09/20/20 11/16/20 Regulo Lundberg MD [address] [place] [address] [email or web address] Insurance Assigned Provider 11/16/20 04/18/22 Shanda Wilkinson MD [address] [place] [address] [email or web address] Insurance Assigned Provider 04/18/22 01/18/23 Shanda Wilkinson MD [address] [place] [address] [email or web address] Insurance Assigned Provider 04/18/22 02/19/23 documented as of this encounter Additional Source Comments The information contained in this document represents components of the legal health record. It is not the complete legal health record.[facility]
--- OUTSIDE RECORDS SUMMARY | 2025-04-16 09:31 | XMS_ITS | Encounter Summary ---
Author Organization [facility] Address [address] [facility] [address] [place] [address] Phone Care Team Providers Care Soft Water Mechanic Name Role Phone Carey Boyd Primary Care Provider + [phone] Regulo Lundberg MD Unavailable [phone] Shanda Wilkinson MD Unavailable [phone] Shanda Wilkinson MD Unavailable [phone] Encounter Details Date Type Department Care Team (Late st Contact Info) Description 01/19/2022 Procedure Pass [facility], X[facility] - [facility] [address] [place] [address] Social History Tobacco Use Types Packs/Day Years [...] on filedocumented in this encounter Care Teams Soft Water Mechanic Relationship Specialty Start Date End Date Carey Boyd PA [address] [place] [address] PCP - General Mining Helper 08/13/20 Regulo Lundberg MD [address] [place] [address] [email or web address] Insurance Assigned Provider 11/16/20 04/18/22 Shanda Wilkinson MD [address] [place] [address] Insurance Assigned Provider 04/18/22 01/18/23 Shanda Wilkinson MD [address] [place] [address] Insurance Assigned Provider 04/18/22 02/19/23 documented as of this encounter Additional Source Comments The information contained in this document represents components of the legal health record. It is not the complete legal health record.[facility]
--- NOTE | 2025-04-16 10:40 | A.PODSOV_ITS ---
Intake Visit Reasons: fu left ankle sprain Allergies scallops Allergy (Unknown, Verified 03/29/25 08:52) Unknown Gabapentin Allergy (Unknown, Uncoded 03/14/25 09:23) neurologic side effects HPI HPI fu left ankle sprain: Details: The patient is a 34-year-old female presenting for 2 week follow up evaluation of left ankle sprain. She started going to physical therapy. She had a new ankle sprain injury this past Tuesday when coming off of a horse. She now has pain all over ankle, although notes mild bruising and swelling. She returned to work and has been using her AFO brace. She is still performing her range of motion stretching exercises at home. History: The patient notes history of her most recent left ankle sprain that occurred the week of 03/04 after stepping off of her horse. She was seen at the emergency room at [place] and received x-rays which were deemed to be negative for fractures. She was discharged in a cam boot. Patient notes she typically rolls her ankle 1-2 times per week. The patient has undergone multiple imaging studies, including an MRI in 2022, which showed normal findings despite clinical laxity and instability. She states that she has to wear an AFO brace which helped her during her rehab however she has not worn it for a few years. She does not use any ankle support or brace due to them not fitting in her shoes. 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 A tightrope procedure was attempted but failed, leading to a Z lengthening of the fibula with syndesmotic fusion [place] [facility]. Additionally, the patient sustained a Lisfranc fracture in the same foot during rehabilitation, which was managed with pinning and subsequent hardware removal in 2020. The patient reports persistent pain and weakness in the left big toe joint, exacerbated by activities that require her to push off of her big toe joint, such as lunges and weighted exercises. She attributed to loss of muscle tone and strength under the foot. Last appointment with her previous surgeon Dr. Pineda 02/16/2023 where a repeat MRI showed some concern for medial talar OCD lesion and recommended PT at the time. Surgical History: - 12/2017: Left ankle ORIF with NEOS - 06/2018: Left ankle AMELIE, arthroscopy, syndesmosis tight-rope - 11/20/2019: Left ankle OCD repair with biocartilage (1.25cm x 1.5cm), fibular osteotomy, CP/SPF/Sural nerve decompression, syndesmotic fusion, brostrom repair ATFL/CFL (Arthrex Pushlock [place]), peroneal tendon tenosynovectomy. - 08/25/2020: ORIF Left lisfranc fracture with Dr. 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 - Exercise: Engages in activities such as lunges and weighted exercises, rides horses, and plays tennis three times a week [facility] Medical History (Updated 03/29/25 @ 12:26 by Santana Turner DPM) Undifferentiated connective tissue disease Ankle sprain Hyperlipidemia Breast lump Triceps tendon rupture Overweight with body mass index (BMI) of 26 to 26.9 in adult Injury of left elbow Annual physical exam Hyperlipidemia with target low density lipoprotein (LDL) cholesterol less than 100 mg/dL Vitamin D deficiency Small fiber neuropathy Fracture of distal end of left fibula Multiple joint pain Postural orthostatic tachycardia syndrome PTSD (post-traumatic stress disorder) Selective immunoglobulin M deficiency Monoclonal gammopathy Channing's thyroiditis Surgical History S/P hardware removal S/P right rotator cuff repair S/P posterior Bankart repair of right shoulder Family History Paternal Grandfather Malignant carcinoid tumor of lung Mother Thyroid nodule Malignant tumor of thyroid gland Social History Household Members: None Housing: Apartment Patient Tobacco Use Status: Former Tobacco user Tobacco use type: Cigarette service: No Current occupational status: employed Cognitive needs: No Hearing needs: No Vision needs: No Review of Systems Const All systems reviewed & are unremarkable except as noted in HPI and below Physical Exam Extrem Other: *Bilateral Lower Extremity Focused Exam Vascular: DP/PT 2/4, CFT<3s to digits, TG warm to cool, mild left lateral and anterior ankle edema. No pedal edema. Derm: Mild ecchymosis over the lateral aspect of the ankle, anterior ankle, and dorsal foot. Healed surgical incisions along the medial and lateral ankle. Neuro: Protective sensation grossly intact to bilateral lower extremities. MSK: Left lower extremity: moderate tenderness on palpation of the ATFL over the lateral ankle and the lateral gutter. Moderate tenderness along the peroneal tendons posterior retromalleolar fibula radiating proximally. Moderate tenderness retromalleolar medial tibia radiating proximally. Ankle inversion 3:1 bilaterally. Ankle dorsiflexion 0 degrees with the rigid block. On weight-bearing, ankle dorsiflexion -5 degrees closed chain. Mild tenderness on palpation along the tarsometatarsal joints, worse to the 3rd 4th and 5th tarsometatarsal joints. No tenderness on palpation along the medial aspect and plantar aspect of the 1st metatarsal shaft on push-off stance currently. Left 1st Metatarsal-phalangeal joint dorsiflexion 80 degrees. Tracking hallux valgus deformity with prominent medial eminence. No pain on palpation of the sesamoids. Results Reviewed Nephrology Results: Hgb, (12.0-16.0) 14.9 g/dl 03/26/25 WBC, (4.8-10.8) 4.4 X10*3/uL L 03/26/25 Plt Count, (160-400) 301 X10*3/uL 03/26/25 Sodium, (135-145) 141 mmol/L 03/26/25 Potassium, (3.3-5.1) 3.8 mmol/L 03/26/25 Chloride, (96-108) 108 mmol/L 03/26/25 Carbon Dioxide, (22-29) 27 mmol/L 03/26/25 BUN, (9-16) 10 mg/dL 03/26/25 Creatinine, (0.5-1.4) 0.68 mg/dL 03/26/25 Calcium, (8.4-10.2) 9.3 mg/dL 03/26/25 Assessment & Plan Assessment & Plan (1) Left ankle sprain: Code(s): S93.402A - Sprain of unspecified ligament of left ankle, initial encounter Category: Medical Qualifiers: Encounter type: initial encounter Involved ligament of ankle: anterior talofibular ligament Qualified Code(s): S93.492A - Sprain of other ligament of left ankle, initial encounter Plan: * Previously reviewed weight-bearing left foot, calcaneus, and ankle x-rays with the patient. * Presents today with recurrent but mild left ankle sprain. Recommended use of an Song bandage or compression stocking while working. Continue AFO brace. * Referred for left ankle MRI to rule out peroneal tendon tear and plan for lateral ankle ligament reconstruction. Patient states she will be seeing her orthopedic foot and ankle surgeon in [place] to review her tentative surgical plan ((lateral ankle ligament reconstruction)). She was encouraged to speak to them as she will likely be returning to them in the future for a TAR vs TTC definitive treatment option(s) in the future. * Continue physical therapy. May need to take 1 week break depending on her pain symptoms and recovery from the recent ankle sprain. * Follow up in 1 month after MRI. (2) Arthritis of foot, left: Code(s): M19.072 - Primary osteoarthritis, left ankle and foot Category: Medical Plan: * No further lisfranc diastasis on weight-bearing x-rays. * Discussed that her symptoms for her midfoot and forefoot pain may be related to her Lisfranc joint arthritis versus medial column overload/compensation due to her rigid ankle rocker. * Discussed treatment options including cortisone injection vs regenerative medicine options (PRP, etc.) for her midfoot arthritis.. * She may eventually require a midfoot fusion. However, discussed risks of further load transfer, most likely to her talo-tarsal joints, if her midfoot is fused. * We will trial a custom foot orthosis with a first ray cut-out for her 1st TMT arthritis. * The patient has hindfoot varus compensation for her ankle valgus. Explained that she is at risk of eventual subtalar joint arthritis, and will likely require a total ankle replacement versus ankle fusion in her future. (3) Ankle ligament laxity: Code(s): M24.273 - Disorder of ligament, unspecified ankle Category: Medical Qualifiers: Laterality: left Qualified Code(s): M24.272 - Disorder of ligament, left ankle Plan: * Recommended eventual lateral ankle ligament reconstruction to decrease how frequently she sprains her ankle. * Due to her history of OCD lesion, she will be planned for an ankle arthroscopy and OCD inspection/possible repair. * Differential diagnosis includes subtalar joint instability. * She was otherwise recommended continued use of her AFO brace (4) Osteochondral defect of talus: Code(s): M95.8 - Other specified acquired deformities of musculoskeletal system Category: Medical Plan: * Lesion size as per her medical records was 1.25cm x 1.5cm * Repeat MRI in 2022 showed signs of persistent OCD * This will be re-evaluated on her next MRI Orders: Orders MR ankle LT wo con 1 Month M24.272 - Disorder of ligament, left ankle, M95.8 - Other specified acquired deformities of musculoskeletal system, S93.492A - Sprain of other ligament of left ankle, initial encounter Coding Level of Care Code Est Pt Level 3 (64420) Diagnoses Sprain of anterior talofibular ligament of left ankle, initial encounter S93.492A Encounter type: initial encounter Involved ligament of ankle: anterior talofibular ligament Arthritis of foot, left M19.072 Ligamentous laxity of left ankle M24.272 Laterality: left Osteochondral defect of talus M95.8
== END 2025-04-16 12:59 | disposition home or self-care (01) ==
LOC: HO.HPODS 08:53
PROVIDERS: PCP Physician Assistant Medical; Visit Provider Student in an Organized Health Care Education/Training Program
DX: S93.492A Sprain of other ligament of left ankle, initial encounter (principal); M19.072 Primary osteoarthritis, left ankle and foot; M24.272 Disorder of ligament, left ankle; M95.8 Other specified acquired deformities of musculoskeletal system
CPT/HCPCS: 99213

== ENCOUNTER 2025-04-18 12:16 | Outpatient (REF) | payer OTHER, SELFPAY ==
--- NOTE | ~2025-04-18 | MM_ITS ---
EXAMINATION(S): 1. MM DIAGNOSTIC DIGITAL BREAST TOMOSYNTHESIS, BILATERAL 2. Targeted ultrasound of the right breast CLINICAL INFORMATION: Right breast lump for 6 months. COMPARISON: None. This is a baseline study. TECHNIQUE: Digital breast tomosynthesis is performed in both the mediolateral oblique and craniocaudal views along with computer-aided detection (CAD). Synthesized 2D images are generated from the tomosynthesis. Skin BB marker is placed in the upper breast at about 12 o'clock position, which indicates the location of the palpable concern. FINDINGS: BREAST COMPOSITION: The breasts are heterogeneously dense, which may obscure small masses. RIGHT BREAST: No significant masses, suspicious calcifications or other abnormalities are seen. In particular, no suspicious mammographic findings adjacent to the skin BB marker placed in the upper breast at approximately 12 o'clock position. Targeted ultrasound of the right breast was performed at the location of the palpable concern as indicated by the patient. The survey centered at 12 o'clock position at 8 cm from the nipple shows an ill-defined hypoechoic area within the skin layer measuring 0.4 x 0.2 x 0.4 cm. No definite communication to the skin surface could be demonstrated. No internal vascularity demonstrated with color Doppler evaluation. LEFT BREAST: No significant masses, suspicious calcifications or other abnormalities are seen. MM/MM tomosynthesis diagnostic BI IMPRESSION: RIGHT BREAST: Palpable concern correlates with skin findings suggestive of epidermoid inclusion cyst/sebaceous cyst. Benign, no evidence of malignancy. Clinical follow-up is recommended. LEFT BREAST: Negative, no mammographic evidence of malignancy. ASSESSMENT: BI-RADS: Category 2: Benign RECOMMENDATION: 1. Patient should be managed based on the clinical impression. 2. Otherwise, routine annual screening mammography. Results were provided to the patient at time of visit by the technologist. This patient's information was entered into a reminder system with a target due date for their next mammogram. Electronically signed by: Checo Roberto MD 04/18/2025 03:58 PM [facility]
--- OUTSIDE RECORDS SUMMARY | 2025-04-18 15:11 | XMS_ITS | Encounter Summary ---
Author Organization [facility] Address [address] [facility] [address] [place] [address] Phone Care Team Providers Care Powderer Name Role Phone Edmund Cope MD Primary Care Provider + Edmund Cope MD Unavailable [phone] Edmund Cope MD Primary Care Provider [...] st Contact Info) Description 11/14/2019 Procedure Pass [facility], Ct Scan - [facility] [address] [place], [place] [id number] Social History Tobacco Use Types Packs/Day Years [...] on filedocumented in this encounter Care Teams Powderer Relationship Specialty Start Date End Date Edmund Cope MD [email or web address] PCP - General Internal Medicine 05/16/17 01/07/20 Edmund Cope MD [email or web address] PCP - General Internal Medicine 01/08/20 02/14/20 Shannon Garcia NP [address] [place] [address] [email or web address] PCP - General Family Medicine 02/15/20 08/12/20 Carey Boyd PA [address] [place] [address] PCP - General Supervisor Properties 08/13/20 Edmund Cope MD [address] [place] [address] [email or web address] Insurance Assigned Provider 09/19/19 04/19/20 Regulo Lundberg MD [address] [place] [address] [email or web address] Insurance Assigned Provider 04/19/20 09/20/20 Natasha Cerrato, RN [address] [place] [address] [facility] Terrazzo Finisher 08/14/20 08/31/20 Shanda Wilkinson MD [address] [place] [address] [email or web address] Insurance Assigned Provider 09/20/20 11/16/20 Regulo Lundberg MD [address] [place] [address] [email or web address] Insurance Assigned Provider 11/16/20 04/18/22 Shanda Wilkinson MD [address] [place] [address] [email or web address] Insurance Assigned Provider 04/18/22 01/18/23 Shanda Wilkinson MD [address] [place] [address] [email or web address] Insurance Assigned Provider 04/18/22 02/19/23 documented as of this encounter Additional Source Comments The information contained in this document represents components of the legal health record. It is not the complete legal health record.[facility]
--- OUTSIDE RECORDS SUMMARY | 2025-04-18 15:11 | XMS_ITS | Encounter Summary ---
Author Organization [facility] Address [address] [facility] [address] [place] [address] Phone Care Team Providers Care Terrazzo Worker Helper Name Role Phone Edmund Cope MD Primary [...] 10/25/2019 Transcribe Orders [facility] [address] [place], [place] [id number] Dalton Leone DO [address] [place] [address] [email or web address] Screening for unspecified condition (Primary Dx) Social [...] Primary documented in this encounter Care Teams Terrazzo Worker Helper Relationship Specialty Start Date End Date Edmund Cope MD [email or web address] PCP - General Internal Medicine 05/16/17 01/07/20 Edmund Cope MD [email or web address] PCP - General Internal Medicine 01/08/20 02/14/20 Shannon Garcia NP [address] [place] [address] [email or web address] PCP - General Family Medicine 02/15/20 08/12/20 Carey Boyd PA [address] [place] [phone] PCP - General Redipper 08/13/20 Edmund Cope MD [address] [place] [address] [email or web address] Insurance Assigned Provider 09/19/19 04/19/20 Regulo Lundberg MD [address] [place] [phone] Insurance Assigned Provider 04/19/20 09/20/20 Natasha Cerrato, RN [address] [place] [address] [email or web address] [facility] Vp Informatics 08/14/20 08/31/20 Shanda Wilkinson MD [address] [place] [phone] Insurance Assigned Provider 09/20/20 11/16/20 Regulo Lundberg MD [address] [place] [address] [email or web address] Insurance Assigned Provider 11/16/20 04/18/22 Shanda Wilkinson MD [address] [place] [phone] Insurance Assigned Provider 04/18/22 01/18/23 Shanda Wilkinson MD [address] [place] [phone] Insurance Assigned Provider 04/18/22 02/19/23 documented as of this encounter Additional Source Comments The information contained in this document represents components of the legal health record. It is not the complete legal health record.[facility]
--- OUTSIDE RECORDS SUMMARY | 2025-04-18 15:11 | XMS_ITS | Encounter Summary ---
Author Organization [facility] Address [address] [facility] [address] [place] [address] Phone Care Team Providers Care Bridge Manager Name Role Phone Shannon Garcia NP Primary Care Provid er Regulo Lundberg MD Unavailable Carey Boyd Primary Care Provider [phone] Natasha Cerrato RN Unavailable Shanda Wilkinson MD Unavailable Regulo Lundberg MD Unavailable [phone] Shanda Wilkinson MD Unavailable [phone] Shanda Wilkinson MD Unavailable [phone] Encounter Details Date Type Department Care Team (Late st Contact Info) Description 05/28/2020 Procedure Pass [facility], [facility] [address] [place], [place] [phone] Social History Tobacco Use Types Packs/Day Years [...] filedocumented in this encounter Care Teams Bridge Manager Relationship Specialty Start Date End Date Shannon Garcia NP [address] [place] [phone] [email or web address] PCP - General Family Medicine 02/15/20 08/12/20 Carey Boyd PA [address] [place] [phone] PCP - General Instrument Repairer Helper 08/13/20 Regulo Lundberg MD [address] [place] [phone] Insurance Assigned Provider 04/19/20 09/20/20 Natasah Cerrato, FRITZ [address] [place] [address] PHCM Neonatal Surgeon 08/14/20 08/31/20 Shanda Wilkinson MD [address] [place] [phone] Insurance Assigned Provider 09/20/20 11/16/20 Regulo Lundberg MD [address] [place] [address] [phone] Insurance Assigned Provider 11/16/20 04/18/22 Shanda Wilkinson MD [address] [place] [address] [email or web address] Insurance Assigned Provider 04/18/22 01/18/23 Shanda Wilkinson MD [address] [place] [address] [email or web address] Insurance Assigned Provider 04/18/22 02/19/23 documented as of this encounter Additional Source Comments The information contained in this document represents components of the legal health record. It is not the complete legal health record.[facility]
--- OUTSIDE RECORDS SUMMARY | 2025-04-18 15:11 | XMS_ITS | Encounter Summary ---
Author Organization [facility] Address [address] [place] [address] Phone Care Team Providers Care Books Salesperson Name Role Phone Regulo Lundberg MD Unavailable [phone] Carey Boyd Primary Care Provider [phone] Natasha Cerrato RN Unavailable Shanda Wilkinson MD Unavailable Regulo Lundberg MD Unavailable [phone] Shanda Wilkinson MD Unavailable [phone] Shanda Wilkinson MD Unavailable [phone] Encounter Details Date Type Department Care Team (Late st Contact Info) Description 08/18/2020 Procedure Pass [facility] [address] [facility], [address] [place] [address] Social History Tobacco Use Types [...] on filedocumented in this encounter Care Teams Books Salesperson Relationship Specialty Start Date End Date Carey Boyd PA [address] [place] [address] PCP - General Supervisor Of Instruction 08/13/20 Regulo Lundberg MD [address] [place] [address] [email or web address] Insurance Assigned Provider 04/19/20 09/20/20 Natasha Cerrato RN [address] [place] [address] [email or web address] PHCM Radar Tester 08/14/20 08/31/20 Shanda Wilkinson MD [address] [place] [address] Insurance Assigned Provider 09/20/20 11/16/20 Regulo Lundberg MD [address] [place] [address] [email or web address] Insurance Assigned Provider 11/16/20 04/18/22 Shanda Wilkinson MD [address] [place] [address] Insurance Assigned Provider 04/18/22 01/18/23 Shanda Wilkinson MD [address] [place] [address] [email or web address] Insurance Assigned Provider 04/18/22 02/19/23 documented as of this encounter Additional Source Comments The information contained in this document represents components of the legal health record. It is not the complete legal health record.[facility]
--- OUTSIDE RECORDS SUMMARY | 2025-04-18 15:11 | XMS_ITS | Encounter Summary ---
Author Organization [facility] Address [address] [facility] [address] [place] [address] Phone Care Team Providers Care Career Guidance Counselor Name Role Phone Shannon Garcia NP Primary Care Provid er Regulo Lundberg MD Unavailable Carey Boyd Primary Care Provider [phone] Natasha Cerrato RN Unavailable Shanda Wilkinson MD Unavailable Regulo Lundberg MD Unavailable Shanda Wilkinson MD Unavailable [phone] Shanda Wilkinson MD Unavailable [phone] Encounter Details Date Type Department Care Team (Late st Contact Info) Description 07/30/2020 Procedure Pass [facility] Cardiology [address] [facility] [place] [address] Social History Tobacco Use Types [...] on filedocumented in this encounter Care Teams Career Guidance Counselor Relationship Specialty Start Date End Date Shannon Garcia NP [address] [place] [phone] [email or web address] PCP - General Family Medicine 02/15/20 08/12/20 Carey Boyd PA [address] [place] [address] PCP - General Engineer Internship 08/13/20 Regulo Lundberg MD [address] [place] [phone] Insurance Assigned Provider 04/19/20 09/20/20 Natasha Cerrato, FRITZ [address] [place] [address] PHC Fireboat Operator 08/14/20 08/31/20 Shanda Wilkinson MD [address] [place] [phone] Insurance Assigned Provider 09/20/20 11/16/20 Regulo Lundberg MD [address] [place] [phone] Insurance Assigned Provider 11/16/20 04/18/22 Shanda Wilkinson MD [address] [place] [address] [email or web address] Insurance Assigned Provider 04/18/22 01/18/23 Shanda Wilkinson MD [address] [place] [address] [email or web address] Insurance Assigned Provider 04/18/22 02/19/23 documented as of this encounter Additional Source Comments The information contained in this document represents components of the legal health record. It is not the complete legal health record.[facility]
--- OUTSIDE RECORDS SUMMARY | 2025-04-18 15:12 | XMS_ITS | Encounter Summary ---
Author Organization [facility] Address [address] [facility] [address] [place] [address] Phone Care Team Providers Care Financial Associate Name Role Phone Edmund Cope MD Primary Care Provider + Edmund Cope MD Unavailable [phone] Edmund Cope MD Primary Care Provider + Shannon Garcia NP Primary Care Provid er + Regulo Lundberg MD Unavailable + Carey Boyd Primary Care Provider + Natasha Cerrato RN Unavailable Shanda Wilkinson MD Unavailable + Regulo Lundberg MD Unavailable + Shanda Wilkinson MD Unavailable + Shanda Wilkinson MD Unavailable [phone] Encounter Details Date Type Department Care Team (Late st Contact Info) Description 11/20/2019 Procedure Pass [facility] [address] [place] [address] Social History Tobacco Use Types [...] on filedocumented in this encounter Care Teams Financial Associate Relationship Specialty Start Date End Date Edmund Cope MD [email or web address] PCP - General Internal Medicine 05/16/17 01/07/20 Edmund Cope MD [email or web address] PCP - General Internal Medicine 01/08/20 02/14/20 Shannon Garcia NP [address] [place] [address] [email or web address] PCP - General Family Medicine 02/15/20 08/12/20 Carey Boyd PA [address] [place] [phone] PCP - General Repair Coil Winder 08/13/20 Edmund Cope MD [address] [place] [phone] [email or web address] Insurance Assigned Provider 09/19/19 04/19/20 Regulo Lundberg MD [address] [place] [address] [email or web address] Insurance Assigned Provider 04/19/20 09/20/20 Natasha Cerrato, FRITZ [address] [place] [address] [facility] Solar Sales Representative And Assessor 08/14/20 08/31/20 Shanda Wilkinson MD [address] [place] [phone] Insurance Assigned Provider 09/20/20 11/16/20 Regulo Lundberg MD [address] [place] [address] [email or web address] Insurance Assigned Provider 11/16/20 04/18/22 Shanda Wilkinson MD [address] [place] [phone] Insurance Assigned Provider 04/18/22 01/18/23 Shanda Wilkinson MD [address] [place] [phone] Insurance Assigned Provider 04/18/22 02/19/23 documented as of this encounter Additional Source Comments The information contained in this document represents components of the legal health record. It is not the complete legal health record.[facility]
--- OUTSIDE RECORDS SUMMARY | 2025-04-18 15:12 | XMS_ITS | Encounter Summary ---
Author Organization [facility] Address [address] [facility] [address] [place] [address] Phone Care Team Providers Care Visitor Services Representative Name Role Phone Edmund Cope MD Primary [...] Unavailable + Shanda Wilkinson MD Unavailable [phone] Reason for Referral * MRI/CAT Scan - Closed Specialty Diagnoses / Procedures Referred By Contcoco t Referred To Contact Radiology Diagnoses Multiple joint pain Arthralgia, unspecified joint Procedures MRI Hand (Right) Clay Cavazos MD Phone: tel: fax: Referral ID Status Reason Start Date Expiration Date Visits Re quested Visits Authorized [id number] Closed 01/21/2020 07/19/2020 1 1 * MRI/CAT Scan - Closed Specialty Diagnoses / Procedures Referred By Contac t Referred To Contact Radiology Diagnoses Multiple joint pain Arthralgia, unspecified joint Procedures MRI Hand (Left) Clay Cavazos MD Phone: tel: fax: Referral ID Status Reason Start Date Expiration Date Visits Re quested Visits Authorized [id number] Closed 01/03/2020 03/06/2020 1 1 Encounter Details Date Type Department Care Team (Latest Contact Info) Description 01/04/2020 Transcribe Orders Virtual Department 30 [place] [address] Clay Cavazos MD [address] [place] [address] Multiple joint pain (Primary Dx); Arthralgia, unspecified [...] arthritis or other explanation of pain. POS [id number] Narrative 01/26/2020 8:20 AM EDT TECHNIQUE: 1.5 [...] tenosynovitis,arthritis or other explanation of pain. POS [id number] Clay Cavazos MD IMG MR EXTREMITY Final [...] joint documented in this encounter Care Teams Visitor Services Representative Relationship Specialty Start Date End Date Edmund Cope MD PCP - General Internal Medicine 05/16/17 01/07/20 Edmund Cope MD PCP - General Internal Medicine 01/08/20 02/14/20 Shannon Garcia, RICARDO [address] [place] [address] [email or web address] PCP - General Family Medicine 02/15/20 08/12/20 Carey Boyd PA [address] [place] [address] PCP - General World Designer 08/13/20 Edmund Cope MD [address] [place] [address] [phone] Insurance Assigned Provider 09/19/19 04/19/20 Regulo Lundberg MD [address] [place] [address] [phone] Insurance Assigned Provider 04/19/20 09/20/20 Natasha Cerrato, FRITZ [address] [place] [address]258 PHCM Drafter Electromechanical 08/14/20 08/31/20 Shanda Wilkinson MD [address] [place] [address] [phone] Insurance Assigned Provider 09/20/20 11/16/20 Regulo Lundberg MD [address] [place] [address] [email or web address] Insurance Assigned Provider 11/16/20 04/18/22 Shanda Wilkinson MD [address] [place] [address] [email or web address] Insurance Assigned Provider 04/18/22 01/18/23 Shanda Wilkinson MD [address] [place] [address] [email or web address] Insurance Assigned Provider 04/18/22 02/19/23 documented as of this encounter Additional Source Comments The information contained in this document represents components of the legal health record. It is not the complete legal health record.[facility]
--- OUTSIDE RECORDS SUMMARY | 2025-04-18 15:12 | XMS_ITS | Encounter Summary ---
Author Organization [facility] Address [address] [facility] [address] [place] [address] Phone Care Team Providers Care Crusher Wet Ground Mica Name Role Phone Edmund Cope MD Primary Care Provider + Edmund Cope MD Unavailable [phone] Edmund Cope MD Primary Care Provider + Shannon Garcia NP Primary Care Provid er + Regulo Lundberg MD Unavailable + Carey Boyd Primary Care Provider + Natasha Cerrato RN Unavailable Shanda Wilkinson MD Unavailable [phone] Regulo Lundberg MD Unavailable + Shanda Wilkinson MD Unavailable + Shanda Wilkinson MD Unavailable + [phone] Encounter Details Date Type Department Care Team (Late st Contact Info) Description 01/04/2020 Procedure Pass [facility], [address] [place], [place] [id number] Social History Tobacco Use Types Packs/Day Years [...] on filedocumented in this encounter Care Teams Crusher Wet Ground Mica Relationship Specialty Start Date End Date Edmund Cope MD [email or web address] PCP - General Internal Medicine 05/16/17 01/07/20 Edmund Cope MD [email or web address] PCP - General Internal Medicine 01/08/20 02/14/20 Shannon Garcia NP [address] [place] [address] [email or web address] PCP - General Family Medicine 02/15/20 08/12/20 Carey Boyd PA [address] [place] [address]28 PCP - General Operations Research Scientist 08/13/20 Edmund Cope MD [address] [place] [address] [email or web address] Insurance Assigned Provider 09/19/19 04/19/20 Regulo Lundberg MD [address] [place] [address] [email or web address] Insurance Assigned Provider 04/19/20 09/20/20 Natasha Cerrato, RN [address] [place] [address] [email or web address] [facility] Industrial Locomotive Operator 08/14/20 08/31/20 Shanda Wilkinson MD [address] [place] [address] [email or web address] Insurance Assigned Provider 09/20/20 11/16/20 Regulo Lundberg MD [address] [place] [address] [email or web address] Insurance Assigned Provider 11/16/20 04/18/22 Shanda Wilkinson MD [address] [place] [address] [email or web address] Insurance Assigned Provider 04/18/22 01/18/23 Shanda Wilkinson MD [address] [place] [address] [email or web address] Insurance Assigned Provider 04/18/22 02/19/23 documented as of this encounter Additional Source Comments The information contained in this document represents components of the legal health record. It is not the complete legal health record.[facility]
--- OUTSIDE RECORDS SUMMARY | 2025-04-18 15:12 | XMS_ITS | Encounter Summary ---
Author Organization [facility] Address [address] [facility] [address] [place] [address] Phone Care Team Providers Care Survey Worker Name Role Phone Regulo Lundberg MD Unavailable [phone] Carey Boyd Primary Care Provider [phone] Shanda Wilkinson MD Unavailable [phone] Regulo Lundberg MD Unavailable Shanda Wilkinson MD Unavailable [phone] Shanda Wilkinson MD Unavailable Encounter Details Date Type Department Care Team (Late st Contact Info) Description 09/08/2020 Ancillary Orders [facility] Department of Orthopaedic Surgery, Foot & Ankle Service [address] [facility], 3rd Floor, [address] [place] [address] Ruiz Sauer PA-C [address] [place] [address] [email or web address] Pain Social History Tobacco Use Types [...] pain documented in this encounter Care Teams Survey Worker Relationship Specialty Start Date End Date Carey Boyd PA [address] [place] [address] PCP - General Fermenting Cellars Supervisor 08/13/20 eRgulo Lundberg MD [address] [place] [phone] Insurance Assigned Provider 04/19/20 09/20/20 Shanda Wilkinson MD [address] [place] [address] [phone] Insurance Assigned Provider 09/20/20 11/16/20 Regulo Lundberg MD [address] [place] [address] [phone] Insurance Assigned Provider 11/16/20 04/18/22 Shanda Wilkinson MD [address] [place] [address] [phone] Insurance Assigned Provider 04/18/22 01/18/23 Shanda Wilkinson MD [address] [place] [address] [phone] Insurance Assigned Provider 04/18/22 02/19/23 documented as of this encounter Additional Source Comments The information contained in this document represents components of the legal health record. It is not the complete legal health record.[facility]
--- OUTSIDE RECORDS SUMMARY | 2025-04-18 15:12 | XMS_ITS | Encounter Summary ---
Author Organization [facility] Address [address] [facility] [address] [place] [address] Phone Care Team Providers Care Trust Manager Name Role Phone Edmund Cope MD Unavailable [phone] Shannon Garcia NP Primary Care Provid er Regulo Lundberg MD Unavailable [phone] Carey Boyd Primary Care Provider Natasha Cerrato RN Unavailable Shanda Wilkinson MD Unavailable [phone] Regulo Lundberg MD Unavailable [phone] Shanda Wilkinson MD Unavailable [phone] Shanda Wilkinson MD Unavailable [phone] Reason for Referral * Outpatient Procedure - Closed Specialty Diagnoses / Procedures Referred By Meche yuan Referred To Contact Radiology Diagnoses Nausea Vomiting without nausea, intractability of vomiting not specified, unspecified vomiting type Abnormal weight loss Procedures NM Gastric Emptying Moise Gomez MD Phone: tel: fax: mailto: Referral ID Status Reason Start Date Expiration Date Visits Re quested Visits Authorized [id number] Closed 03/11/2020 03/11/2021 1 1 Encounter Details Date Type Department Care Team (Latest Contact Info) Description 03/11/2020 Transcribe Orders Virtual Department 30 [place] [address] Moise Gomez MD [address] [phone] [email or web address] Nausea (Primary Dx); Vomiting without [...] activity is still present in the stomach (savhol22-27%) At two hours 45% of activity is still present in the stomach (yylqwk41-95%) At four hours is 2.5% of activity is still present in the stomach (normal0-10%) IMPRESSION: Normal gastric emptying. POS - [id number] Moise Gomez MD [facility] Final Result documented in this encounter Visit Diagnoses Diagnosis Nausea- Primary Nausea alone Vomiting without nausea, intractability of vomiting not specified, unspecified vomiting type Abnormal weight loss Loss of weight Nausea Nausea alone Vomiting without nausea, intractability of vomiting not specified, unspecified vomiting type Abnormal weight loss Loss of weight documented in this encounter Care Teams Trust Manager Relationship Specialty Start Date End Date Shannon Garcai NP [address] [place] [address] [email or web address] PCP - General Family Medicine 02/15/20 08/12/20 Caery Boyd PA [address] [place] [address] PCP - General Assembler 08/13/20 Edmund Cope MD [address] [place] [address] [email or web address] Insurance Assigned Provider 09/19/19 04/19/20 Regulo Lundberg MD [address] [place] [phone] Insurance Assigned Provider 04/19/20 09/20/20 Natasha Cerrato, RN 10 [place] [address] [email or web address] [facility] Facsimile Machine Operator 08/14/20 08/31/20 Shanda Wilkinson MD [address] [place] [phone] Insurance Assigned Provider 09/20/20 11/16/20 Regulo Lundberg MD [address] [place] [address] [phone] Insurance Assigned Provider 11/16/20 04/18/22 Shanda Wilkinson MD [address] [place] [address] [phone] Insurance Assigned Provider 04/18/22 01/18/23 Shanda Wilkinson MD [address] [place] [address] [phone] Insurance Assigned Provider 04/18/22 02/19/23 documented as of this encounter Additional Source Comments The information contained in this document represents components of the legal health record. It is not the complete legal health record.[facility]
--- OUTSIDE RECORDS SUMMARY | 2025-04-18 15:12 | XMS_ITS | Encounter Summary ---
Author Organization [facility] Address [address] [facility] [address] [place] [address] Phone Care Team Providers Care Enterprise Security Architect Name Role Phone Edmund Cope MD Primary Care Provider + Edmund Cope MD Unavailable [phone] Edmund Cope MD Primary Care Provider + Shannon Garcia NP Primary Care Provid er + eRgulo Lundberg MD Unavailable + Carey Boyd Primary Care Provider + Natasha Cerrato RN Unavailable Shanda Wilkinson MD Unavailable +[phone] Regulo Lundberg MD Unavailable + Shanda Wilkinson MD Unavailable + Shanda Wilkinson MD Unavailable [phone] Encounter Details Date Type Department Care Team (Late st Contact Info) Description 01/04/2020 Procedure Pass [facility], [address] [place], [place] [phone] Social History Tobacco Use Types Packs/Day Years [...] on filedocumented in this encounter Care Teams Enterprise Security Architect Relationship Specialty Start Date End Date Edmund Cope MD [email or web address] PCP - General Internal Medicine 05/16/17 01/07/20 Edmund Cope MD [email or web address] PCP - General Internal Medicine 01/08/20 02/14/20 Shannon Garcia NP [address] [place] [address] [email or web address] PCP - General Family Medicine 02/15/20 08/12/20 Carey Boyd PA [address] [place] [address] PCP - General Stock Parts Fabricator 08/13/20 Edmund Cope MD [address] [place] [address] [email or web address] Insurance Assigned Provider 09/19/19 04/19/20 Regulo Lundberg MD [address] [place] [address] [email or web address] Insurance Assigned Provider 04/19/20 09/20/20 Natasha Cerrato, RN [address] [place] [address] [email or web address] [facility] Supervisor Electronic Testing 08/14/20 08/31/20 Shanda Wilkinson MD [address] [place] [address] [email or web address] Insurance Assigned Provider 09/20/20 11/16/20 Regulo Lundberg MD [address] [place] [address] [email or web address] Insurance Assigned Provider 11/16/20 04/18/22 Shanda Wilkinson MD [address] [place] [address] [email or web address] Insurance Assigned Provider 04/18/22 01/18/23 Shanda Wilkinson MD [address] [place] [address] [email or web address] Insurance Assigned Provider 04/18/22 02/19/23 documented as of this encounter Additional Source Comments The information contained in this document represents components of the legal health record. It is not the complete legal health record.[facility]
--- OUTSIDE RECORDS SUMMARY | 2025-04-18 15:12 | XMS_ITS | Encounter Summary ---
Author Organization [facility] Address [address] [facility] [address] [place] [address] Phone Care Team Providers Care Cutter Out Name Role Phone Regulo Lundberg MD Unavailable [phone] Carey Boyd Primary Care Provider [phone] Shanda Wilkinson MD Unavailable Regulo Lundberg MD Unavailable Shanda Wilkinson MD Unavailable [phone] Shanda Wilkinson MD Unavailable Reason for Referral * Physical Therapy (Urgent) - Closed Specialty Diagnoses / Procedures Referred By Meche yuan Referred To Contact Physical Therapy Diagnoses Encounter for rehabilitation Left Ankle Procedures Evalaute & Treat Guillermo Pineda MD Phone: tel: fax: [email or web address]:[email or web address] [facility] [address] [place] [address] Phone: tel: Referral ID Status Reason Start Date Expiration Date Visits Re quested Visits Authorized [id number] Closed 09/08/2020 12/04/2020 17 17 Encounter Details Date Type Department Care Team (Latest Contact Info) Description 09/08/2020 Transcribe Orders [facility] Rehabilitation Services [address] [place] [address] Guillermo Pineda MD [address] [facility] 2ND [place] [address] [email or web address] Encounter for rehabilitation (Primary Dx) [...] r Schedule Ambulatory referral to [facility] Physical Therapy Outpatient Referral Routine Encounter for rehabilitation Ordered: 09/08/2020 documented as of this encounter Visit Diagnoses Diagnosis Encounter for rehabilitation- Primary documented in this encounter Care Teams Cutter Out Relationship Specialty Start Date End Date Carey Boyd PA [address] [place] [address] PCP - General Guide Setter 08/13/20 Regulo Lundberg MD [address] [place] [address] Insurance Assigned Provider 04/19/20 09/20/20 Shanda Wilkinson MD [address] [place] [address] [email or web address] Insurance Assigned Provider 09/20/20 11/16/20 Regulo Lundberg MD [address] [place] [address] [email or web address] Insurance Assigned Provider 11/16/20 04/18/22 Shanda Wilkinson MD [address] [place] [address] [email or web address] Insurance Assigned Provider 04/18/22 01/18/23 Shanda Wilkinson MD [address] [place] [phone] [email or web address] Insurance Assigned Provider 04/18/22 02/19/23 documented as of this encounter Additional Source Comments The information contained in this document represents components of the legal health record. It is not the complete legal health record.[facility]
--- OUTSIDE RECORDS SUMMARY | 2025-04-18 15:12 | XMS_ITS | Encounter Summary ---
Author Organization [facility] Address [address] [facility] [address] [place] [address] Phone Care Team Providers Care Territory Outside Sales Manager Name Role Phone Carey Boyd Primary Care Provider + [phone] Regulo Lundberg MD Unavailable [phone] Shanda Wilkinson MD Unavailable [phone] Shanda Wilkinson MD Unavailable [phone] Encounter Details Date Type Department Care Team (Late st Contact Info) Description 10/29/2021 Procedure Pass [facility], [address] [address] Social History Tobacco Use Types Packs/Day Years [...] on filedocumented in this encounter Care Teams Territory Outside Sales Manager Relationship Specialty Start Date End Date Carey Boyd PA [address] [place] [address] PCP - General Eyelet Machine Operator 08/13/20 Regulo Lundberg MD [address] [place] [address] [email or web address] Insurance Assigned Provider 11/16/20 04/18/22 Shanda Wilkinson MD [address] [place] [address] Insurance Assigned Provider 04/18/22 01/18/23 Shanda Wilkinson MD [address] [place] [address] Insurance Assigned Provider 04/18/22 02/19/23 documented as of this encounter Additional Source Comments The information contained in this document represents components of the legal health record. It is not the complete legal health record.[facility]
--- OUTSIDE RECORDS SUMMARY | 2025-04-18 15:12 | XMS_ITS | Encounter Summary ---
Author Organization [facility] Address [address] [address] [facility] [address] [place] [address] Phone Care Team Providers Care Calibrator Barometers Name Role Phone Edmund Cope MD Unavailable [phone] Edmund Cope MD Primary Care Provider [phone] Shannon Garcia NP Primary Care Provid er Regulo Lundberg MD Unavailable [phone] Carey Boyd Primary Care Provider [phone] Natasha Cerrato RN Unavailable Shanda Wilkinsno MD Unavailable [phone] Regulo Lundberg MD Unavailable [phone] Shanda Wilkinson MD Unavailable [phone] Shanda Wilkinson MD Unavailable [phone] Encounter Details Date Type Department Care Team (Late st Contact Info) Description 01/15/2020 Ancillary Orders [facility] Imaging [address] [place], [place] [phone] System, Provider Not In, [facility] [address] [address] Social History Tobacco Use Types Packs/Day Years [...] on filedocumented in this encounter Care Teams Calibrator Barometers Relationship Specialty Start Date End Date Edmund Cope MD [address] [place] [address] [email or web address] PCP - General Internal Medicine 01/08/20 02/14/20 Shannon Garcia NP [address] [place] [address] [email or web address] PCP - General Family Medicine 02/15/20 08/12/20 Carey Boyd PA [address] [place] [address] PCP - General Doctor Osteopathic 08/13/20 Edmund Cope MD [address] [place] [address] Insurance Assigned Provider 09/19/19 04/19/20 Regulo Lundberg MD [address] [place] [phone] Insurance Assigned Provider 04/19/20 09/20/20 Natasha Cerrato, RN [address] [place] [address] [facility] Solar Sales 08/14/20 08/31/20 Shanda Wilkinson MD [address] [place] [phone] Insurance Assigned Provider 09/20/20 11/16/20 Regulo Lundberg MD [address] [place] [phone] Insurance Assigned Provider 11/16/20 04/18/22 Shanda Wilkinson MD [address] [place] [phone] Insurance Assigned Provider 04/18/22 01/18/23 Shanda Wilkinson MD [address] [place] [address] Insurance Assigned Provider 04/18/22 02/19/23 documented as of this encounter Additional Source Comments The information contained in this document represents components of the legal health record. It is not the complete legal health record.[facility]
--- OUTSIDE RECORDS SUMMARY | 2025-04-18 15:12 | XMS_ITS | Encounter Summary ---
Author Organization [facility] Address [address] [facility] [address] [place] [address] Phone Care Team Providers Care After School Program Director Name Role Phone Edmund Cope MD [...] tel: fax: mailto:[email or web address] [facility] [address] [place] [address] Phone: tel: Referral ID Status Reason Start Date Expiration Date Visits Re quested Visits Authorized [id number] Closed 12/06/2019 06/12/2020 20 20 Encounter Details Date Type Department Care Team (Latest Contact Info) Description 12/06/2019 Transcribe Orders [facility] Rehabilitation [facility] [address] [place] [address] Guillermo Pineda MD [address] [facility] 2ND [place] [address] [email or web address] Encounter for rehabilitation (Primary Dx) [...] Diagnoses Orde r Schedule Ambulatory referral to [facility] Physical Therapy Outpatient Referral Routine Encounter for rehabilitation Ordered: 12/06/2019 documented as of this encounter Visit Diagnoses Diagnosis Encounter for rehabilitation- Primary documented in this encounter Care Teams After School Program Director Relationship Specialty Start Date End Date Edmund Cope MD PCP - General Internal Medicine 05/16/17 01/07/20 Edmund Cope MD PCP - General Internal Medicine 01/08/20 02/14/20 Shannon Garcia NP [address] [place] [address] [email or web address] PCP - General Family Medicine 02/15/20 08/12/20 Carey Boyd PA [address] [place] [address] PCP - General Stripping Machine Operator 08/13/20 Edmund Cope MD [address] [place] [address] [email or web address] Insurance Assigned Provider 09/19/19 04/19/20 Regulo Lundberg MD [address] [place] [address] Insurance Assigned Provider 04/19/20 09/20/20 Natasha Cerrato, FRITZ [address] [place] [address] PHCM Escapement Maker 08/14/20 08/31/20 Shanda Wilkinson MD [address] [place] [address] Insurance Assigned Provider 09/20/20 11/16/20 Regulo Lundberg MD [address] [place] [address] Insurance Assigned Provider 11/16/20 04/18/22 Shanda Wilkinson MD [address] [place] [address] [email or web address] Insurance Assigned Provider 04/18/22 01/18/23 Shanda Wilkinson MD [address] [place] [address] [email or web address] Insurance Assigned Provider 04/18/22 02/19/23 documented as of this encounter Additional Source Comments The information contained in this document represents components of the legal health record. It is not the complete legal health record.[facility]
--- OUTSIDE RECORDS SUMMARY | 2025-04-18 15:12 | XMS_ITS | Encounter Summary ---
Author Organization [facility] Address [address] [facility] ([place], [place]) [address] [place] [address] Phone Care Team Providers Care Power Plant Operator Name Role Phone Regulo Lundberg MD Unavailable Carey Boyd Primary Care Provider [phone] Natasha Cerrato RN Unavailable Shanda Wilkinson MD Unavailable [phone] Regulo Lundberg MD Unavailable [phone] Shanda Wilkinson MD Unavailable [phone] Shanda Wilkinson MD Unavailable [phone] Encounter Details Date Type Department Care Team (Late st Contact Info) Description 08/25/2020 Procedure Pass [facility] [address] [place] [address] Social History Tobacco Use Types [...] on filedocumented in this encounter Care Teams Power Plant Operator Relationship Specialty Start Date End Date Carey Boyd PA [address] [place] [address] PCP - General Disease Control Inspector 08/13/20 Regulo Lundberg MD [address] [place] [address] [email or web address] Insurance Assigned Provider 04/19/20 09/20/20 Natasha Cerrato RN [address] [place] [address] [email or web address] [facility] Irrigation Installation Specialist 08/14/20 08/31/20 Shanda Wilkinson MD [address] [place] [address] [email or web address] Insurance Assigned Provider 09/20/20 11/16/20 Regulo Lundberg MD [address] [place] [address] [email or web address] Insurance Assigned Provider 11/16/20 04/18/22 Shanda Wilkinson MD [address] [place] [address] Insurance Assigned Provider 04/18/22 01/18/23 Shanda Wilkinson MD [address] [place] [address] [email or web address] Insurance Assigned Provider 04/18/22 02/19/23 documented as of this encounter Additional Source Comments The information contained in this document represents components of the legal health record. It is not the complete legal health record.[facility]
--- OUTSIDE RECORDS SUMMARY | 2025-04-18 15:12 | XMS_ITS | Encounter Summary ---
Author Organization [facility] Address [address] [employer] [facility] [address] [place] [address] Phone Care Team Providers Care Aircraft Pneudraulics Repairer Name Role Phone Edmund Cope MD Unavailable [phone] Shannon Garcia NP Primary Care Provid er Regulo Lundberg MD Unavailable [phone] Carey Boyd Primary Care Provider [phone] Natasha Cerrato RN Unavailable Shanda Wilkinson MD Unavailable [phone] Regulo Lundberg MD Unavailable Shanda Wilkinson MD Unavailable [phone] Shanda Wilkinson MD Unavailable [phone] Encounter Details Date Type Department Care Team (Late st Contact Info) Description 02/20/2020 Procedure Pass [facility], Ct Scan - [address] [id number] Social History Tobacco Use Types Packs/Day Years [...] on filedocumented in this encounter Care Teams Aircraft Pneudraulics Repairer Relationship Specialty Start Date End Date Shannon Garcia NP [address] [place] [address] [email or web address] PCP - General Family Medicine 02/15/20 08/12/20 Carey Boyd PA [address] [place] [address] PCP - General Citrus Fruit Packer 08/13/20 Edmund Cope MD [address] [place] [address] Insurance Assigned Provider 09/19/19 04/19/20 Regulo Lundberg MD [address] [place] [address] Insurance Assigned Provider 04/19/20 09/20/20 Natasha Cerrato RN [address] [place] [address] PHCM Fish Flipper 08/14/20 08/31/20 Shanda Wilkinson MD [address] [place] [address] [email or web address] Insurance Assigned Provider 09/20/20 11/16/20 Regulo Lundberg MD [address] [place] [address] [email or web address] Insurance Assigned Provider 11/16/20 04/18/22 Shanda Wilkinson MD [address] [place] [address] [email or web address] Insurance Assigned Provider 04/18/22 01/18/23 Shanda Wilkinson MD [address] [place] [address] [email or web address] Insurance Assigned Provider 04/18/22 02/19/23 documented as of this encounter Additional Source Comments The information contained in this document represents components of the legal health record. It is not the complete legal health record.[facility]
--- OUTSIDE RECORDS SUMMARY | 2025-04-18 15:12 | XMS_ITS | Encounter Summary ---
Author Organization [facility] Address [address] [employer] [facility] [address] [place] [address] Phone Care Team Providers Care Shooter Helper Name Role Phone Edmund Cope MD Primary Care Provider + Edmund Cope MD Unavailable [phone] Edmund Cope MD Primary Care Provider [...] st Contact Info) Description 11/14/2019 Procedure Pass [facility], Ct Scan - [facility] [address] [place], [place] [id number] Social History Tobacco Use Types Packs/Day Years [...] on filedocumented in this encounter Care Teams Shooter Helper Relationship Specialty Start Date End Date Edmund Cope MD [email or web address] PCP - General Internal Medicine 05/16/17 01/07/20 Edmund Cope MD [email or web address] PCP - General Internal Medicine 01/08/20 02/14/20 Shannon Garcia NP [address] [place] [address] [email or web address] PCP - General Family Medicine 02/15/20 08/12/20 Carey Boyd PA [address] [place] [address] 27076 PCP - General Manager Aviation 08/13/20 Edmund Cope MD [address] [place] [address] [email or web address] Insurance Assigned Provider 09/19/19 04/19/20 Regulo Lundberg MD [address] [place] [address] [email or web address] Insurance Assigned Provider 04/19/20 09/20/20 Natasha Cerrato, RN [address] [place] [address] [facility] Provider Service Representative 08/14/20 08/31/20 Shanda Wilkinson MD [address] [place] [address] [email or web address] Insurance Assigned Provider 09/20/20 11/16/20 Regulo Lundberg MD [address] [place] [address] [email or web address] Insurance Assigned Provider 11/16/20 04/18/22 Shanda Wilkinson MD [address] [place] [address] [email or web address] Insurance Assigned Provider 04/18/22 01/18/23 Shanda Wilkinson MD [address] [place] [address] [email or web address] Insurance Assigned Provider 04/18/22 02/19/23 documented as of this encounter Additional Source Comments The information contained in this document represents components of the legal health record. It is not the complete legal health record.[facility]
--- OUTSIDE RECORDS SUMMARY | 2025-04-18 15:13 | XMS_ITS | Encounter Summary ---
Author Organization [facility] Address [address] [employer] [facility] [address] [place] [address] Phone Care Team Providers Care Metal Coater Name Role Phone Edmund Cope MD Primary [...] MD Unavailable + Shanda Wilkinson MD Unavailable [phone] Encounter Details Date Type Department Care Team (Latest Contact Info) Description 01/24/2018 Transcribe Orders Virtual Department [address] [place], [place] [phone] Guillermo Villar MD [address] [place] [address] [email or web address] Elbow pain, left (Primary Dx) [...] arm documented in this encounter Care Teams Metal Coater Relationship Specialty Start Date End Date Edmund Cope MD [email or web address] PCP - General Internal Medicine 05/16/17 01/07/20 Edmund Cope MD [email or web address] PCP - General Internal Medicine 01/08/20 02/14/20 Shannon Garcia NP [address] [place] [address] [email or web address] PCP - General Family Medicine 02/15/20 08/12/20 Carey Boyd PA [address] [place] [address] PCP - General Yardage Caller 08/13/20 Edmund Cope MD [address] [place] [address] [email or web address] Insurance Assigned Provider 10/14/18 03/24/19 Edmund Cope MD [address] [place] [address] [email or web address] Insurance Assigned Provider 09/19/19 04/19/20 Regulo Lundberg MD [address] [place] [address] [email or web address] Insurance Assigned Provider 04/19/20 09/20/20 Natasha Cerrato RN [address] [place] [address] [email or web address] Glove Cutter 08/14/20 08/31/20 Shanda Wilkinson MD [address] [place] [address] [email or web address] Insurance Assigned Provider 09/20/20 11/16/20 Regulo Lundberg MD [address] [place] [address] [email or web address] Insurance Assigned Provider 11/16/20 04/18/22 Shanda Wilkinson MD [address] [place] [address] [email or web address] Insurance Assigned Provider 04/18/22 01/18/23 Shanda Wilkinson MD [address] [place] [address] [email or web address] Insurance Assigned Provider 04/18/22 02/19/23 documented as of this encounter Additional Source Comments The information contained in this document represents components of the legal health record. It is not the complete legal health record.[facility]
--- OUTSIDE RECORDS SUMMARY | 2025-04-18 15:13 | XMS_ITS | Encounter Summary ---
Author Organization [facility] Address [address] [employer] [facility] [address] [place] [address] Phone Care Team Providers Care Refrigeration Engineer Name Role Phone Carey Boyd Primary Care Provider + [phone] Regulo Lundberg MD Unavailable [phone] Shanda Wilkinson MD Unavailable [phone] Shanda Wilkinson MD Unavailable [phone] Encounter Details Date Type Department Care Team (Late st Contact Info) Description 01/19/2022 Procedure Pass [facility], X-Ray - [facility] [address] [place] [address] Social History Tobacco Use Types Packs/Day Years [...] on filedocumented in this encounter Care Teams Refrigeration Engineer Relationship Specialty Start Date End Date Carey Boyd PA [address] [place] [address] PCP - General Microchip Specialist 08/13/20 Regulo Lundberg MD [address] [place] [address] [email or web address] Insurance Assigned Provider 11/16/20 04/18/22 Shanda Wilkinson MD [address] [place] [address] Insurance Assigned Provider 04/18/22 01/18/23 Shanda Wilkinson MD [address] [place] [address] Insurance Assigned Provider 04/18/22 02/19/23 documented as of this encounter Additional Source Comments The information contained in this document represents components of the legal health record. It is not the complete legal health record.[facility]
--- OUTSIDE RECORDS SUMMARY | 2025-04-18 15:13 | XMS_ITS | Encounter Summary ---
Author Organization [facility] Address [address] [facility] [address] [place] [address] Phone Care Team Providers Care Content Curator Name Role Phone Edmund Cope MD Primary [...] MD Unavailable + Shanda Wilkinson MD Unavailable [phone] Encounter Details Date Type Department Care Team (Late st Contact Info) Description 07/07/2017 Procedure Pass [place] Admitting Dept - Virtual Department 30 [place], [place] [phone] Social History Tobacco Use Types Packs/Day Years [...] on filedocumented in this encounter Care Teams Content Curator Relationship Specialty Start Date End Date Edmund Cope MD PCP - General Internal Medicine 05/16/17 01/07/20 Edmund Cope MD PCP - General Internal Medicine 01/08/20 02/14/20 Shannon Garcia NP [address] [place] [address] [email or web address] PCP - General Family Medicine 02/15/20 08/12/20 Carey Boyd PA [address] [place] [address] 9[address] PCP - General Vp Data 08/13/20 Edmund Cope MD [address] [place] [address] Insurance Assigned Provider 10/14/18 03/24/19 Edmund Cope MD [address] [place] [address] [email or web address] Insurance Assigned Provider 09/19/19 04/19/20 Regulo Lundberg MD [address] [place] [address] [email or web address] Insurance Assigned Provider 04/19/20 09/20/20 Natasha Cerrato RN 10 [place] [address] [email or web address] 08/14/20 08/31/20 Shanda Wilkinson MD [address] [place] [address] 625[address] [email or web address] Insurance Assigned Provider 09/20/20 11/16/20 Regulo Lundberg MD [address] [place] [address] [email or web address] Insurance Assigned Provider 11/16/20 04/18/22 Shanda Wilkinson MD [address] [place] [address] 8[address]49 Insurance Assigned Provider 04/18/22 01/18/23 Shanda Wilkinson MD [address] [place] [address] 6[address] Insurance Assigned Provider 04/18/22 02/19/23 documented as of this encounter Additional Source Comments The information contained in this document represents components of the legal health record. It is not the complete legal health record.[facility]
--- OUTSIDE RECORDS SUMMARY | 2025-04-18 15:13 | XMS_ITS | Encounter Summary ---
Author Organization [facility] Address [address] [facility] [address] [place] [address] Phone Care Team Providers Care Supply Chain Intern Name Role Phone Edmund Cope MD Primary Care Provider + Edmund Cope MD Unavailable [phone] Edmund Cope MD Unavailable + [phone] Edmund Cope MD Primary Care Provider + Shannon Garcai NP Primary Care Provid er + Regulo Lundberg MD Unavailable + Carey Boyd Primary Care Provider + Natasha Cerrato RN Unavailable Shanda Wilkinson MD Unavailable + Regulo Lundberg MD Unavailable + Shanda Wilkinson MD Unavailable + Shanda Wilkinson MD Unavailable [phone] Encounter Details Date Type Department Care Team (Late st Contact Info) Description 05/13/2017 Ancillary Orders Virtual Department [address] [place], [place] [phone] Carey Boyd PA [address] [place] [address] [place] [phone] Right shoulder pain, unspecified chronicity Social History [...] be due to mild bursitis. POS - [id number] Narrative 05/19/2017 10:31 AM EST HISTORY: Pain, [...] be due to mild bursitis. POS - [id number] Carey Boyd [place] IMG MR EXTREMITY Final Res ult documented in this encounter Visit Diagnoses Diagnosis Right shoulder pain, unspecified chronicity Right shoulder pain, unspecified chronicity documented in this encounter Care Teams Supply Chain Intern Relationship Specialty Start Date End Date Edmund Cope MD PCP - General Internal Medicine 05/16/17 01/07/20 Edmund Cope MD PCP - General Internal Medicine 01/08/20 02/14/20 Shannon Garcia NP [address] [place] [address] [email or web address] PCP - General Family Medicine 02/15/20 08/12/20 Carey Boyd PA [address] [place] [address] PCP - General General Teller 08/13/20 Edmund Cope MD [address] [place] [address] [email or web address] Insurance Assigned Provider 10/14/18 03/24/19 Edmund Cope MD [address] [place] [address] [email or web address] Insurance Assigned Provider 09/19/19 04/19/20 Regulo Lundberg MD [address] [place] [address] [email or web address] Insurance Assigned Provider 04/19/20 09/20/20 Natasha Cerrato RN [address] [place] [address] [email or web address] PHC Loading Unit Operator Seating 08/14/20 08/31/20 Shanda Wilkinson MD [address] [place] [address] [email or web address] Insurance Assigned Provider 09/20/20 11/16/20 Regulo Lundberg MD [address] [place] [address] [email or web address] Insurance Assigned Provider 11/16/20 04/18/22 Shanda Wilkinson MD [address] [place] [address] [email or web address] Insurance Assigned Provider 04/18/22 01/18/23 Shanda Wilkinson MD [address] [place] [address] [email or web address] Insurance Assigned Provider 04/18/22 02/19/23 documented as of this encounter Additional Source Comments The information contained in this document represents components of the legal health record. It is not the complete legal health record.[facility]
--- OUTSIDE RECORDS SUMMARY | 2025-04-18 15:13 | XMS_ITS | Encounter Summary ---
Author Organization [facility] Address [address] [employer] [facility] [address] [place] [address] Phone Care Team Providers Care Supervisor Seaming Name Role Phone Edmund Cope MD Primary Care Provider + Edmund Cpoe MD Unavailable + 0 Edmund Cope MD Unavailable + 0 Edmund Cope MD Primary Care Provider + Shannon Garcia NP Primary Care Provid er + Regulo Lundberg MD Unavailable + Carey Boyd Primary Care Provider + Natasha Cerrato RN Unavailable Shanda Wilkinson MD Unavailable + Regulo Lundberg MD Unavailable + Shanda Wilkinson MD Unavailable + Shanda Wilkinson MD Unavailable +[phone] Encounter Details Date Type Department Care Team (Late st Contact Info) Description 11/15/2018 Procedure Pass [facility], [address] [phone] Social History Tobacco Use Types Packs/Day Years [...] filedocumented in this encounter Care Teams Supervisor Seaming Relationship Specialty Start Date End Date Edmund Cope MD [email or web address] PCP - General Internal Medicine 05/16/17 01/07/20 Edmund Cope MD [email or web address] PCP - General Internal Medicine 01/08/20 02/14/20 Shannon Garcia NP [address] [place] [address] [email or web address] PCP - General Family Medicine 02/15/20 08/12/20 Carey Boyd PA [address] [place] [address] PCP - General Heel Layer 08/13/20 Edmund Cope MD [address] [place] [address] [email or web address] Insurance Assigned Provider 10/14/18 03/24/19 Edmund Cope MD [address] [place] [address] [email or web address] Insurance Assigned Provider 09/19/19 04/19/20 Regulo Lundberg MD [address] [place] [address] [email or web address] Insurance Assigned Provider 04/19/20 09/20/20 Natasha Cerrato RN [address] [place] [address] [email or web address] Applier 08/14/20 08/31/20 Shanda Wilkinson MD [address] [place] [address] [email or web address] Insurance Assigned Provider 09/20/20 11/16/20 Regulo Lundberg MD [address] [place] [address] [email or web address] Insurance Assigned Provider 11/16/20 04/18/22 Shanda Wilkinson MD [address] [place] [address] [email or web address] Insurance Assigned Provider 04/18/22 01/18/23 Shanda Wilkinson MD [address] [place] [address] [email or web address] Insurance Assigned Provider 04/18/22 02/19/23 documented as of this encounter Additional Source Comments The information contained in this document represents components of the legal health record. It is not the complete legal health record.[facility]
--- OUTSIDE RECORDS SUMMARY | 2025-04-18 15:13 | XMS_ITS | Encounter Summary ---
Author Organization [facility] Address [address] [employer] [facility] [address] [place] [address] Phone Care Team Providers Care Shellfish Manager Name Role Phone Edmund Cope MD [...] Description 08/09/2018 Ancillary Orders Virtual Department [address] [place], [place] [phone] Aniya Jimenez MD [address] [facility] [address] [place] [address] Abnormal involuntary movement Social History Tobacco Use [...] Modality EEG Narrative 08/14/2018 3:34 PM EST [facility] ELECTROENCEPHALOGRAPHY (EEG) LAB INTRODUCTION: The patient [...] persistent focal asymmetries occurred. MD Sameer Berrios Peetz Neurology us Aniya Jimenez MD NEUROLOGY ORDERABLES Fi nal Result documented in this encounter Visit Diagnoses Diagnosis Abnormal involuntary movement Abnormal involuntary movements Abnormal involuntary movement Abnormal involuntary movements documented in this encounter Care Teams Shellfish Manager Relationship Specialty Start Date End Date Edmund Cope MD [email or web address] PCP - General Internal Medicine 05/16/17 01/07/20 Edmund Cope MD [email or web address] PCP - General Internal Medicine 01/08/20 02/14/20 Shannon Garcia NP [address] [place] [address] [email or web address] PCP - General Family Medicine 02/15/20 08/12/20 Carey Boyd PA [address] [place] [address] PCP - General Ferry Operator 08/13/20 Edmund Cope MD [address] [place] [address] [email or web address] Insurance Assigned Provider 10/14/18 03/24/19 Edmund Cope MD [address] [place] [address] [email or web address] Insurance Assigned Provider 09/19/19 04/19/20 Regulo Lundberg MD [address] [place] [address] [email or web address] Insurance Assigned Provider 04/19/20 09/20/20 Natasha Cerrato, RN [address] [place] [address] [email or web address] [facility] Public Health Nurse 08/14/20 08/31/20 Shanda Wilkinson MD [address] [place] [address] 229[address] [email or web address] Insurance Assigned Provider 09/20/20 11/16/20 Regulo Lundberg MD [address] [place] [address] [email or web address] Insurance Assigned Provider 11/16/20 04/18/22 Shanda Wilkinson MD [address] [place] [address] 6[address] Insurance Assigned Provider 04/18/22 01/18/23 Shanda Wilkinson MD [address] [place] [address] [email or web address] Insurance Assigned Provider 04/18/22 02/19/23 documented as of this encounter Additional Source Comments The information contained in this document represents components of the legal health record. It is not the complete legal health record.[facility]
--- OUTSIDE RECORDS SUMMARY | 2025-04-18 15:13 | XMS_ITS | Encounter Summary ---
Author Organization [facility] Address [address] [facility] [address] [place] [address] Phone Care Team Providers Care Machine Sole Leveler Name Role Phone Edmund Cope MD Primary [...] st Contact Info) Description 05/13/2017 Procedure Pass [facility], [address] [id number] Social History Tobacco Use Types Packs/Day Years [...] on filedocumented in this encounter Care Teams Machine Sole Leveler Relationship Specialty Start Date End Date Edmund Cope MD [email or web address] PCP - General Internal Medicine 05/16/17 01/07/20 Edmund Cope MD [email or web address] PCP - General Internal Medicine 01/08/20 02/14/20 Shannon Garcia NP [address] [place] [address] [email or web address] PCP - General Family Medicine 02/15/20 08/12/20 Carey Boyd PA [address] [place] [address] PCP - General Senior Capital Markets Specialist 08/13/20 Edmund Cope MD [address] [place] [address] [email or web address] Insurance Assigned Provider 10/14/18 03/24/19 Edmund Cope MD [address] [place] [address] Insurance Assigned Provider 09/19/19 04/19/20 Regulo Lundberg MD [address] [place] [address] Insurance Assigned Provider 04/19/20 09/20/20 Natasha Cerrato, RN [address] [place] [address] [facility] Spikemaking Supervisor 08/14/20 08/31/20 Shanda Wilkinson MD [address] [place] [address] Insurance Assigned Provider 09/20/20 11/16/20 Regulo Lundberg MD [address] [place] [address] Insurance Assigned Provider 11/16/20 04/18/22 Shanda Wilkinson MD [address] [place] [address] Insurance Assigned Provider 04/18/22 01/18/23 Shanda Wilkinson MD [address] [place] [address] Insurance Assigned Provider 04/18/22 02/19/23 documented as of this encounter Additional Source Comments The information contained in this document represents components of the legal health record. It is not the complete legal health record.[facility]
--- OUTSIDE RECORDS SUMMARY | 2025-04-18 15:13 | XMS_ITS | Encounter Summary ---
Author Organization [facility] Address [address] [facility] [address] [place] [address] Phone Care Team Providers Care Dye Range Operator Name Role Phone Carey Boyd Primary Care Provider Regulo Lundberg MD Unavailable [phone] Shanda Wilkinson MD Unavailable [phone] Shanda Wilkinson MD Unavailable [phone] Encounter Details Date Type Department Care Team (Late st Contact Info) Description 12/08/2021 Procedure Pass [facility] Interventional X-ray Imaging, [place] [address] [place] [address] Social History Tobacco Use Types Packs/Day Years [...] on filedocumented in this encounter Care Teams Dye Range Operator Relationship Specialty Start Date End Date Carey Boyd PA [address] [place] [address] PCP - General Supervisor [place] 08/13/20 Regulo Lundberg MD [address] [place] [address] [email or web address] Insurance Assigned Provider 11/16/20 04/18/22 Shanda Wilkinson MD [address] [place] [address] Insurance Assigned Provider 04/18/22 01/18/23 Shanda Wilkinson MD [address] [place] [address] Insurance Assigned Provider 04/18/22 02/19/23 documented as of this encounter Additional Source Comments The information contained in this document represents components of the legal health record. It is not the complete legal health record.[facility]
--- OUTSIDE RECORDS SUMMARY | 2025-04-18 15:13 | XMS_ITS | Encounter Summary ---
Author Organization [facility] Address [address] [facility] [address] [place] [address] Phone Care Team Providers Care Steamboat Captain Name Role Phone Carey Boyd Primary Care Provider + [phone] Regulo Lundberg MD Unavailable [phone] Shanda Wilkinson MD Unavailable [phone] Shanda Wilkinson MD Unavailable [phone] Encounter Details Date Type Department Care Team (Late st Contact Info) Description 01/19/2022 Procedure Pass [facility], [address] [address] Social History Tobacco Use Types Packs/Day Years [...] on filedocumented in this encounter Care Teams Steamboat Captain Relationship Specialty Start Date End Date Carey Boyd PA [address] [place] [address] PCP - General Screen Cutter And Trimmer 08/13/20 Regulo Lundberg MD [address] [place] [address] [email or web address] Insurance Assigned Provider 11/16/20 04/18/22 Shanda Wilkinson MD [address] [place] [address] Insurance Assigned Provider 04/18/22 01/18/23 Shanda Wilkinson MD [address] [place] [address] Insurance Assigned Provider 04/18/22 02/19/23 documented as of this encounter Additional Source Comments The information contained in this document represents components of the legal health record. It is not the complete legal health record.[facility]
--- OUTSIDE RECORDS SUMMARY | 2025-04-18 15:13 | XMS_ITS | Encounter Summary ---
Author Organization [facility] Address [address] [facility] [address] [place] [address] Phone Care Team Providers Care Binder Caser Name Role Phone Carey Boyd Primary Care Provider + [phone] Regulo Lundberg MD Unavailable [phone] Shanda Wilkinson MD Unavailable [phone] Shnada Wilkinson MD Unavailable [phone] Encounter Details Date Type Department Care Team (Late st Contact Info) Description 12/08/2021 Procedure Pass [facility] Imaging, [place] [address] [place] [address] Social History Tobacco Use Types Packs/Day Years [...] on filedocumented in this encounter Care Teams Binder Caser Relationship Specialty Start Date End Date Carey Boyd PA [address] [place] [address] PCP - General Supervisor Advertising Dispatch Clerks 08/13/20 Regulo Lundberg MD [address] [place] [address] [email or web address] Insurance Assigned Provider 11/16/20 04/18/22 Shanda Wilkinson MD [address] [place] [address] Insurance Assigned Provider 04/18/22 01/18/23 Shanda Wilkisnon MD [address] [place] [address] Insurance Assigned Provider 04/18/22 02/19/23 documented as of this encounter Additional Source Comments The information contained in this document represents components of the legal health record. It is not the complete legal health record.[facility]
--- OUTSIDE RECORDS SUMMARY | 2025-04-18 15:13 | XMS_ITS | Clinical Summary ---
Author Organization [facility] Address [address] [facility] [address] [place] [address] Phone Care Team Providers Care Cpc Name Role Phone Carey Boyd Primary Care Provider [phone] Allergies Active Allergy Reactions Criticality Noted Date [...] this topic Medical Devices Implanted Type Area Body Repairer Device Identifier Shelf Expiration Date Model / Serial / Lot Adel Suture 2 2.3mm 2strand Force Fiber Iconix Intellibraid -Order In Multiples Of 5 - [id number] Implanted:Qty: 3 on 07/07/2017 by Vernon Moses DO at [facility] [employer] Right: Shoulder [employer] 11/11/2018 [id number] / / [id number] Screw Bone 3.5x14mm Cortex Self Tapping Fully Threaded Hex Head Ss - [id number] Implanted:Qty: 1 on 11/20/2019 by Guillermo Pineda MD at [facility] Left: Ankle SYNTHES 204.814 / / AUTO#3 LOAD #1 Bone Plate 141x3.5mm 12 Hole Tubular One Third With Collar Lcp Ss - [id number] Implanted:Qty: 1 on 11/20/2019 by Guillermo Pineda MD at [facility] Left: Ankle SYNTHES 241.421 / / AUTO#3 LOAD #1 Screw Bone 2.7x18mm Cortical Self Tapping Fully Threaded Hex Head Ss Bx/1ea - [id number] Implanted:Qty: 1 on 11/20/2019 by Guillermo Pineda MD at [facility] Left: Ankle SYNTHES 202.818 / / AUTO#3 LOAD #1 Screw Bone 2.7x20mm Cortical Self Tapping Fully Threaded Hex Head Ss - [id number] Implanted:Qty: 1 on 11/20/2019 by Guillermo Pineda MD at [facility] Left: Ankle SYNTHES 202.820 / / AUTO#3 LOAD #1 Screw Bone 12x3.5mm Compression Ss Locking Self Tapping Full Thread T15 Stardrive Recess - [id number] Implanted:Qty: 1 on 11/20/2019 by Guillermo Pineda MD at [facility] Left: Ankle SYNTHES 212.102 / / AUTO#3 LOAD #1 Screw Bone 3.5x12mm Cortex Self Tapping Fully Threaded Hex Head Ss - [id number] Implanted:Qty: 2 on 11/20/2019 by Guillermo Pineda MD at [facility] Left: Ankle SYNTHES 204.812 / / AUTO#3 LOAD #1 Screw Bone 3.5x45mm Cortex Self Tapping Fully Threaded Hex Head Ss - [id number] Implanted:Qty: 1 on 11/20/2019 by Guillermo Pineda MD at [facility] Left: Ankle SYNTHES 204.845 / / AUTO#3 LOAD #1 Screw Bone 3.5x50mm Cortex Ss Self Tapping Hexagonal Socket - [id number] Implanted:Qty: 2 on 11/20/2019 by Guillermo Pineda MD at [facility] Left: Ankle SYNTHES 204.850 / / AUTO#3 LOAD #1 Washer Bone 7.0mm Sm Screw Cannulated Ss - Ssterilizer 4, Load 3: Sterilized 2020 Implanted:Qty: 2 on 08/25/2020 by Guillermo Pineda MD at [facility] Left: Foot SYNTHES 219.98 / STERILIZER 4, LOAD 3: STERILIZED 2020 / Screw Bone 30x3.5mm Cannulated Ss Full Thread Hexagonal Socket Flat Head - Discontinued Per Supplier - Ssterilizer 4, Load 3: Sterilized 2020 Implanted:Qty: 1 on 08/25/2020 by Guillermo Pineda MD at [facility] STANDARD Left: Foot SYNTHES 205.230 / STERILIZER 4, LOAD 3: STERILIZED 2020 / Adel Suture 4.5mm Arthroscopy Reelx Stt Peek Stainless Steel Core Knotless Sharp Tip Expandable Sterile Bx/5ea - [id number] Implanted:Qty: 1 on 07/07/2017 by Vernon Moses DO at [facility] Right: Shoulder [employer] 05/24/2019 [id number] / / [id number] Graft Bone 1.00ml Biocartilage Synthetic Matrix [place] Extracellular Filler Syringe - [id number] Implanted:Qty: 1 on 11/20/2019 by Guillermo Pineda MD at [facility] Left: Ankle [employer] 04/11/2024 [id number] / [id number] / Adel Suture 2.9mmx12.5 Pushlock Biocomposite Swivelock Vented Bx/5ea - Must Be Ordered In Multiples Of 5's - [id number] Implanted:Qty: 2 on 11/20/2019 by Guillermo Pineda MD at [facility] Left: Ankle ARTHREX 09/10/2021 [id number] / / [id number] Kit 1.5cc Graft Bone Augment Synthetic Bioabsorbable - [id number] Implanted:Qty: 1 on 11/20/2019 by Guillermo Pineda MD at [facility] Right: Ankle [employer] 05/12/2021 [id number] / / [id number] Guidewire Pipo 1.14x097ec Non Threaded - Ssterilizer4, Load3: Sterilized Implanted:Qty: 2 on 08/25/2020 by Guillermo Pineda MD at [facility] Left: Foot SYNTHES 900.721 / STERILIZER4, LOAD3: STERILIZED / 3.5mm Cannulated Screws, Fully Threaded Implanted:Qty: 1 on 08/25/2020 by Guillermo Pineda MD at [facility] Left: Foot 205.224 / / Description:Sterilizer # nicole d #3 August 11, 2020 Explanted Type Area Body Repairer Device Identifier Shelf Expiration Date Model / Serial / Lot Screw Bone 18x3.5mm Compression Ss Locking Self Tapping Full Thread T15 Stardrive Recess - [id number] Implanted:Qty: 1 by Guillermo Pineda MD Explanted:Qty: 1 on 11/20/2019 by Guillermo Pineda MD at [facility] Left: Ankle SYNTHES 212.105 / / AUTO#3 LOAD #1 Screw Bone 3.5x14mm Cortex Self Tapping Fully Threaded Hex Head Ss - [id number] Implanted:Qty: 1 Explanted:Qty: 1 on 11/20/2019 at [facility] Left: Ankle SYNTHES 204.814 / / AUTO#3 LOAD #1 Procedures Procedure Name Priority Date/Time Associated Diagnosis Comments PAP TEST Routine 11/16/2023 12:00 AM EDT from Last 3 Months or Most Recently Relevant to Health Maintenance Results * Pap Test (11/16/2023 12:00 AM EDT) Report [address] [address] Sort Supervisor: Jennifer Boyer MD MARKETING DATABASE ANALYST Cytology Report FINAL DIAGNOSIS A. PAP SMEAR (THIN PREP) CE: SPECIMEN ADEQUACY: Satisfactory for evaluation; transformation zone present. INTERPRETATION: NEGATIVE FOR INTRAEPITHELIAL LESION OR MALIGNANCY. This specimen was analyzed by the automated ThinPrep Imaging System (SentreHEART.) and the selected mishra were reviewed by a trial court justice. Electronically Signed Out By: NICOLE Herndon(ASCP) The [...] 59, 66, 68) Note: Testing performed by [employer] HR-HPV analysis. Clinical correlation is advised. This HPV test was performed at [facility], [address] [place] [address]. This test has been FDA approved for both SurePath and ThinPrep cervical cytology specimens. The accuracy and precision of this test for all other specimen sources has been verified in the Cytopathology Laboratory of the [facility] and has not been cleared or approved by the U.S. Food and Drug Administration. Clinical correlation is advised. CLINICAL HISTORY Date of Last Menstrual Period: 11-06-2023 Other Clinical Conditions: Screening Pap SPECIMEN SOURCE A: PAP SMEAR (THIN PREP) CE Patient Name: IVAN WILKINSON : 1990 (Age: 33) Sex: F Institution: [facility] Location[facility] Date of Collection: 11/16/2023 Date of Reported: 11/22/2023 13:06 Results to: Shannon Garcia [facility] Final Diagnosis A. PAP SMEAR (THIN PREP) CE: SPECIMEN ADEQUACY: Satisfactory for evaluation; transformation zone present. INTERPRETATION: NEGATIVE FOR INTRAEPITHELIAL LESION OR MALIGNANCY. This specimen was analyzed by the automated ThinPrep Imaging System (SentreHEART.) and the selected mishra were reviewed by a trial court justice. [facility] Results\Inter pretation A. PAP SMEAR (THIN PREP) CE: Human Papilloma Virus TestNEGATIVE for high-risk Human Papilloma Virus types 16, 18, 45 and the Other high risk probe set (Includes 31, 33, 35, 39, 51, 52, 56, 58, 59, 66, 68)Note: Testing performed by [employer] HR-HPV analysis. Clinical correlation is advised. This HPV test was performed at [facility], [address] [place] [address]. This test has been FDA approved for both SurePath and ThinPrep cervical cytology specimens. The accuracy and precision of this test for all other specimen sources has been verified in the Cytopathology Laboratory of the [facility] and has not been cleared or approved by the U.S. Food and Drug Administration. Clinical correlation is advised. [facility] Conversion Type (Conversion Source) 11/16/2023 11/17/2023 10:35 AM EDT Shannon Garcia NP CYTOLOGY ORDERABLES Edited Result - Final [facility] [address] [place] [address] from Last 3 Months or Most Recently Relevant to Health Maintenance Insurance [facility]CO [facility] INSURANCE Advance Directives For more information, please contact: [phone] (9AM - 5PM Sandra/[facility], Tuesday-Tuesday) * Full Code (Presumed) (Latest Code Status on File) Date Activated Date Inactivated Comments 07/07/2017 8:30 AM 07/07/2017 3:58 PM Care Teams Cpc Relationship Specialty Start Date End Date Carey Boyd PA [address] [place] [address] PCP - General Powder Expert 08/13/20 Additional Source Comments The information contained in this document represents components of the legal health record. It is not the complete legal health record.[facility]
--- OUTSIDE RECORDS SUMMARY | 2025-04-18 15:14 | XMS_ITS | Encounter Summary ---
Author Organization [facility] Address [address] [facility] [address] [place] [address] Phone Care Team Providers Care Junior Technical Writer Name Role Phone Carey Boyd Primary Care Provider + [phone] Regulo Lundberg MD Unavailable [phone] Shanda Wilkinson MD Unavailable [phone] Shanda Wilkinson MD Unavailable [phone] Encounter Details Date Type Department Care Team (Late st Contact Info) Description 01/27/2021 Procedure Pass [facility] [address] [place] [address] Social History Tobacco Use Types [...] on filedocumented in this encounter Care Teams Junior Technical Writer Relationship Specialty Start Date End Date Carey Boyd PA [address] [place] [address] PCP - General Seo Expert 08/13/20 Regulo Lundberg MD [address] [place] [address] [email or web address] Insurance Assigned Provider 11/16/20 04/18/22 Shanda Wilkinson MD [address] [place] [address] Insurance Assigned Provider 04/18/22 01/18/23 Shanda Wilkinson MD [address] [place] [address] Insurance Assigned Provider 04/18/22 02/19/23 documented as of this encounter Additional Source Comments The information contained in this document represents components of the legal health record. It is not the complete legal health record.[facility]
--- OUTSIDE RECORDS SUMMARY | 2025-04-18 15:14 | XMS_ITS | Encounter Summary ---
Author Organization [facility] Address [address] [facility] [address] [place] [address] Phone Care Team Providers Care Ruffler Name Role Phone Carey Boyd Primary Care Provider [phone] Shanda Wilkinson MD Unavailable [phone] Encounter Details Date Type Department Care Team (Late st Contact Info) Description 01/24/2023 Procedure Pass [address] [place] [address] Social History Tobacco Use Types Packs/Day Years [...] on filedocumented in this encounter Care Teams Ruffler Relationship Specialty Start Date End Date Carey Boyd PA [address] [place] [address] PCP - General Store Custodian 08/13/20 Shanda Wilkinson MD [address] [place] [address] [email or web address] Insurance Assigned Provider 04/18/22 02/19/23 documented as of this encounter Additional Source Comments The information contained in this document represents components of the legal health record. It is not the complete legal health record.[facility]
--- OUTSIDE RECORDS SUMMARY | 2025-04-18 15:14 | XMS_ITS | Encounter Summary ---
Author Organization [facility] Address [address] [facility] [address] [place] [address] Phone Care Team Providers Care Bulldozer/Loader/Compactor/Scraper Name Role Phone Carey Boyd Primary Care Provider Regulo Lundberg MD Unavailable [phone] Shanda Wilkinson MD Unavailable [phone] Shanda Wilkinson MD Unavailable [phone] Reason for Referral * Physical Therapy (Routine) - Closed Specialty Diagnoses / Procedures Referred By Meche t Referred To Contact Physical Therapy Diagnoses Encounter for rehabilitation Shannon Garcia NP [address] [place] [address] Phone: tel: fax: [email or web address] [address] [place] [address] Phone: tel: Referral ID Status Reason Start Date Expiration Date Visits Re quested Visits Authorized [id number] Closed 02/13/2021 02/13/2022 1 1 Encounter Details Date Type Department Care Team (Latest Contact Info) Description 02/13/2021 Transcribe Orders [facility] [address] [place] [address] Shannon Garcia NP [address] [place] [address] [place] [id number] [email or web address] Encounter for rehabilitation (Primary Dx) Social [...] Diagnoses Orde r Schedule Ambulatory referral to [facility] Physical Therapy Outpatient Referral Routine Encounter for rehabilitation Ordered: 02/13/2021 documented as of this encounter Visit Diagnoses Diagnosis Encounter for rehabilitation- Primary documented in this encounter Care Teams Bulldozer/Loader/Compactor/Scraper Relationship Specialty Start Date End Date Carey Boyd PA [address] [place] [address] PCP - General Trademark Attorney 08/13/20 Regulo Lundberg MD [address] [place] [address] Insurance Assigned Provider 11/16/20 04/18/22 Shanda Wilkinson MD [address] [place] [address] Insurance Assigned Provider 04/18/22 01/18/23 Shanda Wilkinson MD [address] [place] [address] [email or web address] Insurance Assigned Provider 04/18/22 02/19/23 documented as of this encounter Additional Source Comments The information contained in this document represents components of the legal health record. It is not the complete legal health record.[facility]
--- OUTSIDE RECORDS SUMMARY | 2025-04-18 15:14 | XMS_ITS | Encounter Summary ---
Author Organization [facility] Address [address] [facility] [address] [place] [address] Phone Care Team Providers Care Geomorphology Teacher Name Role Phone Shannon Garcia NP Primary Care Provid er Regulo Lundberg MD Unavailable [phone] Carey Boyd Primary Care Provider [phone] Natasha Cerrato RN Unavailable Shanda Wilkinson MD Unavailable Regulo Lundberg MD Unavailable [phone] Shanda Wilkinson MD Unavailable [phone] Shanda Wilkinson MD Unavailable [phone] Encounter Details Date Type Department Care Team (Late st Contact Info) Description 05/15/2020 Procedure Pass [facility] [address] [place], [place] [id number] Social History Tobacco Use Types Packs/Day Years [...] on filedocumented in this encounter Care Teams Geomorphology Teacher Relationship Specialty Start Date End Date Shannon Garcia NP [address] [place] [address] [email or web address] PCP - General Family Medicine 02/15/20 08/12/20 Carey Boyd PA [address] [place] [address] PCP - General Supervisor Mold Construction 08/13/20 Regulo Lundberg MD [address] [place] [address] Insurance Assigned Provider 04/19/20 09/20/20 Natasha Cerrato, FRITZ [address] [place] [address] [employer] 08/14/20 08/31/20 Shanda Wilkinson MD [address] [place] [address] Insurance Assigned Provider 09/20/20 11/16/20 Regulo Lundberg MD [address] [place] [address] [email or web address] Insurance Assigned Provider 11/16/20 04/18/22 Shanda Wilkinson MD [address] [place] [address] [email or web address] Insurance Assigned Provider 04/18/22 01/18/23 Shanda Wilkinson MD [address] [place] [address] [email or web address] Insurance Assigned Provider 04/18/22 02/19/23 documented as of this encounter Additional Source Comments The information contained in this document represents components of the legal health record. It is not the complete legal health record.[facility]
--- OUTSIDE RECORDS SUMMARY | 2025-04-18 15:14 | XMS_ITS | Encounter Summary ---
Author Organization [facility] Address [address] [employer] [facility] [address] [place] [address] Phone Care Team Providers Care Hydraulic Engineer Name Role Phone Edmund Cope MD [...] laterality System, Provider Not In, PhD [employer] [address] [address] Phone: tel: Referral ID Status Reason Start Date Expiration Date Visits Re quested Visits Authorized [id number] Closed 09/01/2018 09/02/2019 1 1 Encounter Details Date Type Department Care Team (Latest Contact Info) Description 09/01/2018 Transcribe Orders [facility] NEUROLOGY VIRTUAL DEPARTMENT [address] [place] [phone] Self-Referred, Patient Myoclonus (Primary Dx); Chronic ankle [...] Diagnoses Orde r Schedule Ambulatory referral to [facility] Neurology Outpatient Referral Routine Myoclonus Chronic ankle pain, unspecified laterality Ordered: 09/01/2018 documented as of this encounter Visit Diagnoses Diagnosis Myoclonus- Primary Chronic ankle pain, unspecified laterality documented in this encounter Care Teams Hydraulic Engineer Relationship Specialty Start Date End Date Edmund Cope MD [email or web address] PCP - General Internal Medicine 05/16/17 01/07/20 Edmund Cope MD PCP - General Internal Medicine 01/08/20 02/14/20 Shannon Garcia NP [address] [place] [address] [email or web address] (acquired by [employer] in 2014) PCP - General Family Medicine 02/15/20 08/12/20 Carey [place] PA [address] [place] [address] PCP - General Effervescent Salts Compounder 08/13/20 Edmund Cope MD [address] [place] [address] [email or web address] Insurance Assigned Provider 10/14/18 03/24/19 Edmund Cope MD [address] [place] [address] [email or web address] Insurance Assigned Provider 09/19/19 04/19/20 Regulo Lundberg MD [address] [place] [address] [email or web address] Insurance Assigned Provider 04/19/20 09/20/20 Natasha Cerrato RN [address] [place] [address] [email or web address] PHC Storage Battery Tester 08/14/20 08/31/20 Shanda Wilkinson MD [address] [place] [address] [email or web address] Insurance Assigned Provider 09/20/20 11/16/20 Regulo Lundberg MD [address] [place] [address] [email or web address] Insurance Assigned Provider 11/16/20 04/18/22 Shanda Wilkinson MD [address] [place] [address] [email or web address] Insurance Assigned Provider 04/18/22 01/18/23 Shanda Wilkinson MD [address] [place] [address] [email or web address] Insurance Assigned Provider 04/18/22 02/19/23 documented as of this encounter Additional Source Comments The information contained in this document represents components of the legal health record. It is not the complete legal health record.[facility]
== END 2025-04-18 12:17 | disposition home or self-care (01) ==
LOC: HO.MAMMO 12:16
PROVIDERS: PCP Physician Assistant Medical; Visit Provider Internal Medicine
DX: N63.15 Unspecified lump in the right breast, overlapping quadrants (principal)
CPT/HCPCS: 76642; 77062; 77066

== ENCOUNTER → 2025-04-18 13:00 | Outpatient (BNV) | payer OTHER, SELFPAY | PROVIDERS: PCP Physician Assistant Medical; Visit Provider Radiology Body Imaging | DX: N63.15 Unspecified lump in the right breast, overlapping quadrants (principal) | CPT/HCPCS: 76642; 77062; 77066 ==

== ENCOUNTER 2025-04-29 11:03 | Outpatient (RCR) | payer OTHER, SELFPAY ==
--- NOTE | 2025-04-03 11:00 | MHC.PT.EP ---
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 Hyperlipidemia, Vitamin D deficiency, Small fiber neuropathy, Fracture of distal end of left fibula, Multiple joint pain, Postural orthostatic tachycardia syndrome, Channing's thyroiditis, Bankart repair of right shoulder who is referred to PT for eval and treat of Unspecified sprain of L ankle ligament, OA of L foot which she sustained after falling from her horse 3 weeks ago and her current condition is resulting in decreased tolerance and ability for performing squatting activities, sports and fitness activities, negotiating stairs and curbs as well as standing and walking for duration secondary to acute injury, decreased ankle ROM, strength, and stability, IV hypermobility, EV and DF hypomobility, decreased balance on L, as well as complicated ankle Hx of 2018 trimalleolar Fx with ORIF, 2019 HW removal, 2020 lengthening of fibula and tib/fib fusion, 2021 Lisfranc Fx ORIF with HW removal, 2021 pin removal from Lisfranc. Pt is deemed an appropriate candidate to receive skilled PT services to address their physical impairments in order to improve their functional ability. Frequency and Duration: The patient will be seen 2 x / wk x 4 wks. Short Term Goals: Improve baseline pain to < 4/10; initial 5/10. Initiate home program. Retirement Goals: Pt will report able to walk 1 mile without difficulty; initial: moderate difficulty. Pt will improve LEFI outcome by at least 9 points. Pt will improve ankle EV strength by at least 1/2 MMT grade. Pt will demonstrate ability to stand SLS on on L LE x 30 seconds; initial: unable. Pt will improve L ankle dorsiflexion to at least 6 degrees (initial - 5 degrees. ) Treatment Plan: Modalities to reduce pain, spasms and effusion. Manual therapy to restore motion and function. Therapeutic exercise to improve strength and flexibility. Neuromuscular re-education for posture and balance. Therapeutic activities to return to functional activities of daily living. Electronically signed by: Yomi Sarah PT Please sign and return to therapist. Thank you for your referral.
--- NOTE | 2025-05-29 08:40 | MHC.PT.DC ---
[facility] [place] [facility] [place] [facility] [place] [facility] [address] Abiola Escalona [address] [phone] F: [phone] F: [phone] F: [phone] F: [phone] Physical Therapy Discharge Report Diagnosis: Unspecified sprain of L ankle ligament, OA of L foot Date of Surgery: Date of Evaluation: 03/29/25 Date of Discharge: 05/29/25 Treatments to Date: 9 Cancellations to Date: No Shows to Date: Discharge Status: Achieved Goals Improved Function Independent with HEP Discharge Summary: At last assessment- Pt D/C to HEP at this time. She met her STGs and made progress toward her LTGs. Will be seeing the energy conservation director and is scheduled for an MRI in early May Electronically signed by: Ijeoma Saucedo, PT DPT Please sign and return to therapist. Thank you for your referral.
== END 2025-05-29 08:40 | disposition home or self-care (01) ==
LOC: HO.PT 11:03
PROVIDERS: PCP Physician Assistant Medical; Visit Provider Student in an Organized Health Care Education/Training Program
DX: M19.072 Primary osteoarthritis, left ankle and foot (principal); S93.402D Sprain of unspecified ligament of left ankle, subsequent encounter
CPT/HCPCS: 97110; 97112; 97140; 97161; 97530

== ENCOUNTER 2025-05-13 19:26 | Outpatient (REF) | payer OTHER, SELFPAY ==
--- NOTE | ~2025-05-13 | MR_ITS ---
EXAM: MR Ankle Lt Wo Con TECHNIQUE: Multiplanar multisequence imaging performed through a lower extremity joint without contrast. INDICATION: Left ankle pain and swelling since a sprain, reinjured 3 months ago, fell from a horse PRIOR: None FINDINGS: Achilles tendon / plantar fascia: Achilles tendon and plantar fascia are intact without thickening or abnormal signal. Lateral ankle ligaments: The syndesmosis is surgically fused. Anterior talofibular ligament is thickened with heterogeneous increased signal. The posterior talofibular ligament is indistinct, thick, and with increased signal. Calcaneal fibular ligament is thickened and intact. Deltoid ligament complex: Intact Ankle tendons: Peroneal, medial, and the anterior ankle tendons are intact without abnormal signal or size changes. Talar Dome: There is an osteochondral lesion involving the medial shoulder of the talar dome measuring 5 x 13 mm (transverse by AP. There is flattening and thinning of the subchondral bone plate with minimal reactive marrow signal. Sinus tarsi: The physiologic architecture of sinus tarsi is preserved. Bone / Bone marrow: There is metal artifact across the syndesmosis related to postsurgical fusion. There is also a metallic anchor in the lateral malleolus. There is mature bony fusion across the syndesmosis. There is mild reactive marrow signal in the medial malleolus and adjacent medial talar dome. Articular cartilage: There is moderate degenerative change involving the first tarsometatarsal joint with moderate irregular articular cartilage loss and a degenerative cyst in the lateral aspect of the medial cuneiform. Soft Tissues: There is mildly increased synovial fluid in the talotibial joint. MR/MR ankle LT wo con IMPRESSION: There is a 5 x 13 mm full-thickness articular cartilage defects involving the medial shoulder of the talar dome with mild flattening and thinning of the subchondral bone plate and mild reactive marrow signal. Small mildly complex effusion involving the talotibial joint. Surgically fused syndesmosis. Age-indeterminate grade 2 sprain of anterior and posterior talofibular ligaments and grade 1 sprain of the calcaneofibular ligament. Chronic versus acute/subacute on chronic. Moderate osteoarthritis of the first tarsometatarsal joint. Electronically signed by: Vinod Daugherty MD 05/14/2025 09:48 AM [facility] [place]
--- NOTE | ~2025-05-13 | MR_ITS ---
EXAM: MR Foot Lt Wo Con TECHNIQUE: Multiplanar multisequence MR imaging was performed through the left foot. INDICATION: M19.072 - Primary osteoarthritis, left ankle and foot fell from a horse, reinjured 3 months ago, pain and swelling in the left foot and ankle PRIOR: X-ray on 03/26/2025 FINDINGS: Lisfranc ligament: Lisfranc ligaments are intact. Soft tissues/Wing's Neuroma: There is no Wing's neuroma. There is mild edema in the dorsal subcutaneous soft tissues. There is no muscle edema or fatty streaking. Metatarsophalangeal (MTP) joint and sesamoids of the great toe: There is hallux valgus deformity. There is no joint effusion. Capsule structures are intact. There is mild lateral subluxation of the sesamoids. There is increased signal in the central fibrocartilage of the plantar plate complex. There is also mild thickening and irregularity. Lesser MTP joints & Plantar plates: The central fibrocartilage of the second metatarsophalangeal joint appears mildly elevated at the base of the proximal phalanx. There is mildly increased joint fluid. The fourth MTP joint demonstrates mildly increased joint fluid. The joint capsular structures and plantar plate complex are intact. Second and fourth MTP joints are unremarkable. Bones/Marrow: There is degenerative irregularity of the lateral half of the first tarsometatarsal joint with degenerative marrow signal in the lateral aspect of the medial cuneiform. MR/MR foot LT wo con IMPRESSION: Age-indeterminate first plantar plate abnormality: The central fibrocartilage of the plantar plate complex is thickened and irregular. Age-indeterminate second plantar plate abnormality: The central fibrocartilage of the plantar plate complex is mildly lax and elevated at the base of the second proximal phalanx. There is mildly increased synovial fluid. Hallux valgus deformity. Moderate osteoarthritis of the first tarsometatarsal joint. Borderline increased synovial fluid in the fourth MTP joint. Electronically signed by: Vinod Daugherty MD 05/14/2025 09:58 AM [facility]
--- OUTSIDE RECORDS SUMMARY | 2025-05-13 19:32 | XMS_ITS | Encounter Summary ---
Author Organization [facility] Address [address] [facility] [address] [place] [address] Phone Care Team Providers Care Inspector And Mender Name Role Phone Shannon Garcia NP Primary Care Provid er Regulo Lundberg MD Unavailable Carey [place] Primary Care Provider [phone] Natasha Cerrato RN Unavailable Shanda Wilkinson MD Unavailable Regulo Lundberg MD Unavailable [phone] Shanda Wilkinson MD Unavailable [phone] Shanda Wilkinson MD Unavailable Elicia Valentin Primary Care Provider [phone] Encounter Details Date Type Department Care Team (Late st Contact Info) Description 05/28/2020 Procedure Pass [facility], [address] [id number] Social History Tobacco Use Types Packs/Day Years [...] as of this encounter Plan of Treatment Upcoming Encounters Date Type Department Care Team (Late st Contact Info) Description 05/22/2025 10:45 AM EST Office [place] [facility] Department of Orthopaedic Surgery, Foot & Ankle Service [address] [facility], 3rd Floor, [address] [place] [address] Guillermo Pineda MD [address] 2ND [place] [address] [email or web address] documented as of this encounter Visit Diagnoses Not on filedocumented in this encounter Care Teams Inspector And Mender Relationship Specialty Start Date End Date Shannon Garcia NP [address] [place] [address] [email or web address] PCP - General Family Medicine 02/15/20 08/12/20 Carey [place] PA [address] [place] [address] PCP - General Redevelopment Manager 08/13/20 04/23/25 Elicia Valentin PA [address] [place] [address] PCP - General Physician Coding Auditor 04/24/25 Regulo Lundberg MD [address] [place] [address] [email or web address] Insurance Assigned Provider 04/19/20 09/20/20 Natasha Cerrato RN [address] [place] [address] [email or web address] [facility] Textbook Associate 08/14/20 08/31/20 Shanda Wilkinson MD [address] [place] [address] Insurance Assigned Provider 09/20/20 11/16/20 Regulo Lundberg MD [address] [place] [address] [email or web address] Insurance Assigned Provider 11/16/20 04/18/22 Shanda Wiliknson MD [address] [place] [address] Insurance Assigned Provider 04/18/22 01/18/23 Shanda Wilkinson MD [address] [place] [address] [email or web address] Insurance Assigned Provider 04/18/22 02/19/23 documented as of this encounter Additional Source Comments The information contained in this document represents components of the legal health record. It is not the complete legal health record.[facility]
--- OUTSIDE RECORDS SUMMARY | 2025-05-13 19:32 | XMS_ITS | Encounter Summary ---
Author Organization [facility] Address [address] [employer] [facility] [address] [place] [address] Phone Care Team Providers Care Social Services Manager Name Role Phone Shannon Garcia NP Primary Care Provid er Regulo Lundberg MD Unavailable Carey [place] Primary Care Provider [phone] Natasha Cerrato RN Unavailable Shanda Wilkinson MD Unavailable Regulo Lundberg MD Unavailable Shanda Wilkinson MD Unavailable [phone] Shanda Wilkinson MD Unavailable Elicia Valentin Primary Care Provider [phone] Encounter Details Date Type Department Care Team (Late st Contact Info) Description 07/30/2020 Procedure Pass [facility] Cardiology [address] [facility], [address] [place] [address] Social History Tobacco Use Types [...] Description 05/22/2025 10:45 AM EST Office Visit [facility] Department of Orthopaedic Surgery, Foot & Ankle Service [address] [facility], 3rd Floor, [address] [place] [address] Guillermo Pineda MD [address] [facility] 2ND [place] [address] [email or web address] documented as of this encounter Visit Diagnoses Not on filedocumented in this encounter Care Teams Social Services Manager Relationship Specialty Start Date End Date Shannon Garcia NP [address] [place] [address] [email or web address] PCP - General Family Medicine 02/15/20 08/12/20 Carey [place] PA [address] [place] [address] PCP - General Board Certified Behavioral Analyst 08/13/20 04/23/25 Elicia Valentin PA [address] [place] [address] PCP - General Physician Military Technician 04/24/25 Regulo Lundberg MD [address] [place] [address] [email or web address] Insurance Assigned Provider 04/19/20 09/20/20 Natasha Cerrato RN [address] [place] [address] [email or web address] [facility] [place] Systems Administration Analyst 08/14/20 08/31/20 Shanda Wilkinson MD [address] [place] [address] Insurance Assigned Provider 09/20/20 11/16/20 Regulo Lundberg MD [address] [place] [address] [email or web address] Insurance Assigned Provider 11/16/20 04/18/22 Shanda Wilkinson MD [address] [place] [address] Insurance Assigned Provider 04/18/22 01/18/23 Shanda Wilkinson MD [address] [place] [address] [email or web address] Insurance Assigned Provider 04/18/22 02/19/23 documented as of this encounter Additional Source Comments The information contained in this document represents components of the legal health record. It is not the complete legal health record.[facility]
--- OUTSIDE RECORDS SUMMARY | 2025-05-13 19:32 | XMS_ITS | Encounter Summary ---
Author Organization [facility] Address [address] [place] [address] Phone Care Team Providers Care Near Eastern Archaeology Lecturer Name Role Phone Regulo Lundberg MD Unavailable [phone] Carey [place] Primary Care Provider [phone] Natasha Cerrato RN Unavailable Shanda Wilkinson MD Unavailable Regulo Lundberg MD Unavailable [phone] Shanda Wilkinson MD Unavailable [phone] Shanda Wilkinson MD Unavailable [phone] Elicia Valentin Primary Care Provider [phone] Encounter Details Date Type Department Care Team (Late st Contact Info) Description 08/18/2020 Procedure Pass [facility] [address] [facility], [address] [place] [address] Social History Tobacco Use Types [...] Description 05/22/2025 10:45 AM EST Office Visit [facility] Department of Orthopaedic Surgery, Foot & Ankle Service [address] [facility], 3rd Floor, [address] [place] [address] Guillermo Pineda MD [address] 2ND [place] [address] documented as of this encounter Visit Diagnoses Not on filedocumented in this encounter Care Teams Near Eastern Archaeology Lecturer Relationship Specialty Start Date End Date Carey [place] PA [address] [place] [address] PCP - General Gang Plank Workman 08/13/20 04/23/25 Elicia Valentin PA [address] [place] [address] PCP - General Physician Grey Percher 04/24/25 Regulo Lundberg MD [address] [place] [address] Insurance Assigned Provider 04/19/20 09/20/20 Natasha Cerrato RN [address] [place] [address] PHCM Washer Blanket 08/14/20 08/31/20 Shanda Wilkinson MD [address] [place] [address] Insurance Assigned Provider 09/20/20 11/16/20 Regulo Lundberg MD [address] [place] [address] [email or web address] Insurance Assigned Provider 11/16/20 04/18/22 Shanda Wilkinson MD [address] [place] [address] [email or web address] Insurance Assigned Provider 04/18/22 01/18/23 Shanda Wilkinson MD [address] [place] [address] [email or web address] Insurance Assigned Provider 04/18/22 02/19/23 documented as of this encounter Additional Source Comments The information contained in this document represents components of the legal health record. It is not the complete legal health record.[facility]
--- OUTSIDE RECORDS SUMMARY | 2025-05-13 19:32 | XMS_ITS | Encounter Summary ---
Author Organization [facility] Address [address] [facility] [address] [place] [address] Phone Care Team Providers Care Auto Collision Repair Instructor Name Role Phone Edmund Cope MD Primary Care Provider + Edmund Cope MD Unavailable [phone] Edmund Cope MD Primary Care Provider + Shannon Garcia NP Primary Care Provid er + Regulo Lundberg MD Unavailable + Carey [place] Primary Care Provider [phone] Natasha Cerrato RN Unavailable Shanda Wilkinson MD Unavailable + Regulo Lundberg MD Unavailable + Shanda Wilkinson MD Unavailable + Shadna Wilkinson MD Unavailable [phone] Elicia Valentin Primary Care Provider [phone] Encounter Details Date Type Department Care Team (Latest Contact Info) Description 10/25/2019 Transcribe Orders [facility] [address] [place] [address] Dalton Leone, [address] [place] [address] [email or web address] Screening for unspecified condition (Primary Dx) [...] Description 05/22/2025 10:45 AM EST Office Visit [facility] Department of Orthopaedic Surgery, Foot & Ankle Service [address] [place] [address], 3[address] Floor, [address] [place] [address] Guillermo Pineda MD [address] [facility] 2[place] [address] [email or web address] documented as of this encounter Visit Diagnoses Diagnosis Screening for unspecified condition- Primary documented in this encounter Care Teams Auto Collision Repair Instructor Relationship Specialty Start Date End Date Edmund Cope MD [email or web address] PCP - General Internal Medicine 05/16/17 01/07/20 Edmund Cope MD [email or web address] PCP - General Internal Medicine 01/08/20 02/14/20 Shannon Garcia NP [address] [place] [address] [email or web address] PCP - General Family Medicine 02/15/20 08/12/20 Carey [place] PA [address] [place] [address] PCP - General Health Care Technician 08/13/20 04/23/25 Elicia Valentin PA [address] [place] [address] PCP - General Physician Assistant Professor Of Communication 04/24/25 Edmund Cope MD [address] [place] [address] [email or web address] Insurance Assigned Provider 09/19/19 04/19/20 Regulo Lundberg MD [address] [place] [address] Insurance Assigned Provider 04/19/20 09/20/20 Natasha Cerrato, FRITZ [address] [place] [address] PHCM Orthopaedic General 08/14/20 08/31/20 Shanda Wilkinson MD [address] [place] [address] [email or web address] Insurance Assigned Provider 09/20/20 11/16/20 Regulo Lundberg MD [address] [place] [phone] Insurance Assigned Provider 11/16/20 04/18/22 Shanda Wilkinson MD [address] [place] [address] [email or web address] Insurance Assigned Provider 04/18/22 01/18/23 Shanda Wilkinson MD [address] [place] [address] [email or web address] Insurance Assigned Provider 04/18/22 02/19/23 documented as of this encounter Additional Source Comments The information contained in this document represents components of the legal health record. It is not the complete legal health record.[facility]
--- OUTSIDE RECORDS SUMMARY | 2025-05-13 19:33 | XMS_ITS | Encounter Summary ---
Author Organization [facility] Address [address] [facility] [address] [place] [address] Phone Care Team Providers Care Franchise Sales Manager Name Role Phone Edmund Cope MD Primary Care Provider + Edmund Cope MD Unavailable [phone] Edmund Cope MD Primary Care Provider + Shannon Garcia NP Primary Care Provid er + Regulo Lundberg MD Unavailable + Carey [place] Primary Care Provider [phone] Natasha Cerrato RN Unavailable Shanda Wilkinson MD Unavailable + Regulo Lundberg MD Unavailable + Shanda Wilkinson MD Unavailable + Shanda Wilkinson MD Unavailable + Elicia Valentin Primary Care Provider [phone] Encounter Details Date Type Department Care Team (Late st Contact Info) Description 11/20/2019 Procedure Pass [facility] [address] [place] [address] Social History Tobacco Use Types [...] Description 05/22/2025 10:45 AM EST Office [place] [facility] Department of Orthopaedic Surgery, Foot & Ankle Service [address] [facility], 3rd Floor, [address] [place] [address] Guillermo Pineda MD [address] [facility] 2ND [place] [address] [email or web address] documented as of this encounter Visit Diagnoses Not on filedocumented in this encounter Care Teams Franchise Sales Manager Relationship Specialty Start Date End Date Edmund Cope MD [email or web address] PCP - General Internal Medicine 05/16/17 01/07/20 Edmund Cope MD [email or web address] PCP - General Internal Medicine 01/08/20 02/14/20 Shannon Garcia NP [address] [place] [address] [email or web address] PCP - General Family Medicine 02/15/20 08/12/20 Carey [place] PA [address] [place] [address] PCP - General Outside Event Sales Specialist 08/13/20 04/23/25 Elicia Valentin PA [address] [place] [address] PCP - General Physician Public Address System Operator 04/24/25 Edmund Cope MD [address] [place] [address] [email or web address] Insurance Assigned Provider 09/19/19 04/19/20 Regulo Lundberg MD [address] [place] [address] [email or web address] Insurance Assigned Provider 04/19/20 09/20/20 Natasha Cerrato RN [address] [place] [address] [email or web address] [facility] Project Manager 08/14/20 08/31/20 Shanda Wilkinson MD [address] [place] [address] Insurance Assigned Provider 09/20/20 11/16/20 Regulo Lundberg MD [address] [place] [address] [email or web address] Insurance Assigned Provider 11/16/20 04/18/22 Shanda Wilkinson MD [address] [place] [address] Insurance Assigned Provider 04/18/22 01/18/23 Shanda Wilkinson MD [address] [place] [address] [email or web address] Insurance Assigned Provider 04/18/22 02/19/23 documented as of this encounter Additional Source Comments The information contained in this document represents components of the legal health record. It is not the complete legal health record.[facility]
--- OUTSIDE RECORDS SUMMARY | 2025-05-13 19:33 | XMS_ITS | Encounter Summary ---
Author Organization [facility] Address [address] [facility] [address] [place] [address] Phone Care Team Providers Care Mitigation Supervisor Name Role Phone Edmund Cope MD Unavailable [phone] Shannon Garcia NP Primary Care Provid er Regulo Lundberg MD Unavailable [phone] Carey Boyd Primary Care Provider [phone] Natasha Cerrato RN Unavailable Shanda Wilkinson MD Unavailable Regulo Lundberg MD Unavailable Shanda Wilkinson MD Unavailable Shanda Wilkinson MD Unavailable Elicia Valentin Primary Care Provider [phone] Encounter Details Date Type Department Care Team (Late st Contact Info) Description 02/20/2020 Procedure Pass [facility], Ct Scan - [facility] [place] [facility] [address] [place], [place] [id number] Social History Tobacco Use Types Packs/Day Years [...] Description 05/22/2025 10:45 AM EST Office Visit [facility] Department of Orthopaedic Surgery, Foot & Ankle Service [address] [facility], 3rd Floor, [address] [place] [address] Guillermo Pineda MD [address] [facility] 2[address] [place] [address] [email or web address] documented as of this encounter Visit Diagnoses Not on filedocumented in this encounter Care Teams Mitigation Supervisor Relationship Specialty Start Date End Date Shannon Garcia NP [address] [place] [address] [email or web address] PCP - General Family Medicine 02/15/20 08/12/20 Carey Boyd PA [address] [place] [address] PCP - General Mill Tender Washing 08/13/20 04/23/25 Elicia Valentin PA [address] [place] [address] PCP - General Physician Shell Worker 04/24/25 Edmund Cope MD 238 [place] [address] [email or web address] Insurance Assigned Provider 09/19/19 04/19/20 Regulo Lundberg MD [address] [place] [address] [email or web address] Insurance Assigned Provider 04/19/20 09/20/20 Natasha Cerrato, RN [address] [place] [address] [email or web address] [facility] Cutter Barrel Drum 08/14/20 08/31/20 Shanda Wilkinson MD [address] [place] [phone] Insurance Assigned Provider 09/20/20 11/16/20 Regulo Lundberg MD [address] [place] [address] [email or web address] Insurance Assigned Provider 11/16/20 04/18/22 Shanda Wilkinson MD [address] [place] [phone] Insurance Assigned Provider 04/18/22 01/18/23 Shanda Wilkinson MD [address] [place] [phone] Insurance Assigned Provider 04/18/22 02/19/23 documented as of this encounter Additional Source Comments The information contained in this document represents components of the legal health record. It is not the complete legal health record.[facility]
--- OUTSIDE RECORDS SUMMARY | 2025-05-13 19:33 | XMS_ITS | Encounter Summary ---
Author Organization [facility] Address [address] [facility] [address] [place] [address] Phone Care Team Providers Care Galvanizer Name Role Phone Edmund Cope MD Primary [...] Unavailable + Elicia Valentin Primary Care Provider [phone] Encounter Details Date Type Department Care Team (Late st Contact Info) Description 11/15/2018 Procedure Pass [facility], [facility] - Main [address] [address] Social History Tobacco Use Types Packs/Day Years [...] Description 05/22/2025 10:45 AM EST Office Visit [facility] Department of Orthopaedic Surgery, Foot & Ankle Service [address] [facility], 3rd Floor, [address] [place] [address] Guillermo Pineda MD [address] [facility] 2ND [place] [address] [email or web address] documented as of this encounter Visit Diagnoses Not on filedocumented in this encounter Care Teams Galvanizer Relationship Specialty Start Date End Date Edmund Cope MD [email or web address] PCP - General Internal Medicine 05/16/17 01/07/20 Edmund Cope MD [email or web address] PCP - General Internal Medicine 01/08/20 02/14/20 Shannon Garcia NP [address] [place] [address] [email or web address] PCP - General Family Medicine 02/15/20 08/12/20 Carey Boyd PA [address] [place] [address] PCP - General Scrap Metal Burner 08/13/20 04/23/25 Elicia Valentin PA [address] [place] [address] PCP - General Physician District Manager In Training 04/24/25 Edmund Cope MD [address] [place] [address] [email or web address] Insurance Assigned Provider 10/14/18 03/24/19 Edmund Cope MD [address] [place] [address] Insurance Assigned Provider 09/19/19 04/19/20 Regulo Lundberg MD [address] [place] [address] Insurance Assigned Provider 04/19/20 09/20/20 Natasha Cerrato RN [address] [place] [address] PHCM Textile Cutting Machine Operator 08/14/20 08/31/20 Shanda Wilkinson MD [address] [place] [address] Insurance Assigned Provider 09/20/20 11/16/20 Regulo Lundberg MD [address] [place] [address] [email or web address] Insurance Assigned Provider 11/16/20 04/18/22 Shanda Wilkinson MD [address] [place] [address] [email or web address] Insurance Assigned Provider 04/18/22 01/18/23 Shanda Wilkinson MD [address] [place] [address] [email or web address] Insurance Assigned Provider 04/18/22 02/19/23 documented as of this encounter Additional Source Comments The information contained in this document represents components of the legal health record. It is not the complete legal health record.[facility]
--- OUTSIDE RECORDS SUMMARY | 2025-05-13 19:33 | XMS_ITS | Encounter Summary ---
Author Organization [facility] Address [address] [facility] [address] [place] [address] Phone Care Team Providers Care Inpatient Services Rn Name Role Phone Carey Boyd Primary Care Provider [phone] Regulo Lundberg MD Unavailable [phone] Shanda Wilkinson MD Unavailable [phone] Shanda Wilkinson MD Unavailable +[phone] Elicia Valentin Primary Care Provider [phone] Reason for Referral * Physical Therapy (Routine) - Closed Specialty Diagnoses / Procedures Referred By Contac t Referred To Contact Physical Therapy Diagnoses Encounter for rehabilitation Shannon Garcia NP [address] [place] [address] Phone: tel: fax: [email or web address] [address] Phone: tel: Referral ID Status Reason Start Date Expiration Date Visits Re quested Visits Authorized [id number] Closed 02/13/2021 02/13/2022 1 1 Encounter Details Date Type Department Care Team (Latest Contact Info) Description 02/13/2021 Transcribe Orders [facility] Rehabilitation Services [address] [place] [address] Shannon Garcia, RICARDO [address] [place] [id number] [email or web address] Encounter for rehabilitation (Primary Dx) Social History [...] Description 05/22/2025 10:45 AM EST Office Visit [facility] Department of Orthopaedic Surgery, Foot & Ankle Service [address] [facility], 3rd Floor, [address] [place] [address] Guillermo Pineda MD [address] [facility] 2ND [place] [address] [email or web address] Scheduled Referrals Name Type Priority Associated Diagnoses Orde r Schedule Ambulatory referral to [facility] Physical Therapy Outpatient Referral Routine Encounter for rehabilitation Ordered: 02/13/2021 documented as of this encounter Visit Diagnoses Diagnosis Encounter for rehabilitation- Primary documented in this encounter Care Teams Inpatient Services Rn Relationship Specialty Start Date End Date Carey Boyd PA [address] [place] [address] PCP - General Finisher Brush 08/13/20 04/23/25 Elicia Valentin PA [address] [place] [address] PCP - General Physician Patient Registration Rep 04/24/25 Regulo Lundberg MD [address] [place] [address] [email or web address] Insurance Assigned Provider 11/16/20 04/18/22 Shanda Wilkinson MD [address] [place] [address] Insurance Assigned Provider 04/18/22 01/18/23 Shanda Wilkinson MD [address] [place] [address] [email or web address] Insurance Assigned Provider 04/18/22 02/19/23 documented as of this encounter Additional Source Comments The information contained in this document represents components of the legal health record. It is not the complete legal health record.[facility]
--- OUTSIDE RECORDS SUMMARY | 2025-05-13 19:33 | XMS_ITS | Encounter Summary ---
Author Organization [facility] Address [address] [place] [address] Phone Care Team Providers Care Engagement Specialist Name Role Phone Regulo Lundberg MD Unavailable Carey Boyd Primary Care Provider [phone] Shanda Wilkinson MD Unavailable [phone] Regulo Lundberg MD Unavailable [phone] Shanda Wilkinson MD Unavailable Shanda Wilkinson MD Unavailable Elicia Valentin Primary Care Provider [phone] Encounter Details Date Type Department Care Team (Late st Contact Info) Description 09/08/2020 Ancillary Orders [facility] Department of Orthopaedic Surgery, Foot & Ankle Service [address] [facility], 3rd Floor, [address] [place] [address] Ruiz Sauer PA-C [address] [place] [address] [email or web address] Social History Tobacco Use Types [...] Description 05/22/2025 10:45 AM EST Office Visit [facility] Department of Orthopaedic Surgery, Foot & Ankle Service [address] [facility], 3rd Floor, [address] [place] [address] Guillermo Pineda MD [address] [facility] 2ND [place] [address] [email or web address] documented as of this encounter Results * [...] the report originallycreated by Dr. Wesley Jimenes. Ruiz Sauer PA-C IMG XR LOWER EXTREMITY Fin al Result documented in this encounter Visit Diagnoses Diagnosis Pain Generalized pain Pain Generalized pain documented in this encounter Care Teams Engagement Specialist Relationship Specialty Start Date End Date Carey Boyd PA [address] [place] [address] PCP - General Brake Rider 08/13/20 04/23/25 Elicia Valentin PA [address] [place] [address] PCP - General Physician Industrial Technology Education Teacher 04/24/25 Regulo Lundberg MD [address] [place] [address] Insurance Assigned Provider 04/19/20 09/20/20 Shanda Wilkinson MD [address] [place] [address] Insurance Assigned Provider 09/20/20 11/16/20 Regulo Lundberg MD [address] [place] [address] [email or web address] Insurance Assigned Provider 11/16/20 04/18/22 Shanda Wilkinson MD [address] [place] [address] [email or web address] Insurance Assigned Provider 04/18/22 01/18/23 Shanda Wilkinson MD [address] [place] [address] [email or web address] Insurance Assigned Provider 04/18/22 02/19/23 documented as of this encounter Additional Source Comments The information contained in this document represents components of the legal health record. It is not the complete legal health record.[facility]
--- OUTSIDE RECORDS SUMMARY | 2025-05-13 19:33 | XMS_ITS | Encounter Summary ---
Author Organization [facility] Address [address] [facility] [address] [place] [address] Phone Care Team Providers Care Asphalt Machine Operator Name Role Phone Edmund Cope MD Primary Care Provider + Edmund Cope MD Unavailable [phone] Edmund Cope MD Unavailable [phone] Edmund Cope MD Primary Care Provider + Shannon Garcia NP Primary Care Provid er + Regulo Lundberg MD Unavailable + Carey Boyd Primary Care Provider [phone] Natasha Cerrato RN Unavailable Shanda Wilkinson MD Unavailable + Regulo Lundberg MD Unavailable + Shanda Wilkinson MD Unavailable + Shanda Wilkinson MD Unavailable [phone] Elicia Valentin Primary Care Provider [phone] Encounter Details Date Type Department Care Team (Late st Contact Info) Description 05/13/2017 Ancillary Orders Virtual Department 30 [place] [address] Carey Boyd PA [address] [place] [id number] Right shoulder pain, unspecified chronicity Social History [...] Description 05/22/2025 10:45 AM EST Office Visit [facility] Department of Orthopaedic Surgery, Foot & Ankle Service [address] [facility], 3rd Floor, [address] [place] [address] Guillermo Pineda MD [address] [facility] [address] [place] [address] [email or web address] documented as of this encounter Results * [...] be due to mild bursitis. POS - [id number] Narrative 05/19/2017 10:31 AM EST HISTORY: Pain, [...] be due to mild bursitis. POS - [id number] Carey BECERRA IMG MR EXTREMITY Final Res ult documented in this encounter Visit Diagnoses Diagnosis Right shoulder pain, unspecified chronicity Right shoulder pain, unspecified chronicity documented in this encounter Care Teams Asphalt Machine Operator Relationship Specialty Start Date End Date Edmund Cope MD PCP - General Internal Medicine 05/16/17 01/07/20 Edmund Cope MD PCP - General Internal Medicine 01/08/20 02/14/20 Shannon Garcia, RICARDO [address] [place] [address] [email or web address] PCP - General Family Medicine 02/15/20 08/12/20 Carey Boyd PA [address] [place] [address] PCP - General Deoiling Machine Operator 08/13/20 04/23/25 Elicia Valentin PA [address] [place] [address] PCP - General Physician Behavioral Medical Director 04/24/25 Edmund Cope MD [address] [place] [address] [email or web address] Insurance Assigned Provider 10/14/18 03/24/19 Edmund Cope MD [address] [place] [address] [email or web address] Insurance Assigned Provider 09/19/19 04/19/20 Regulo Lundberg MD [address] [place] [address] [email or web address] Insurance Assigned Provider 04/19/20 09/20/20 Natasha Cerrato, RN [address] [place] [address] [email or web address] [facility] Medical Scientist 08/14/20 08/31/20 Shanda Wilkinson MD [address] [place] [address] [email or web address] Insurance Assigned Provider 09/20/20 11/16/20 Regulo Lundberg MD [address] [place] [address] [email or web address] Insurance Assigned Provider 11/16/20 04/18/22 Shanda Wilkinson MD [address] [place] [address] [email or web address] Insurance Assigned Provider 04/18/22 01/18/23 Shanda Wilkinson MD [address] [place] [address] [email or web address] Insurance Assigned Provider 04/18/22 02/19/23 documented as of this encounter Additional Source Comments The information contained in this document represents components of the legal health record. It is not the complete legal health record.[facility]
--- OUTSIDE RECORDS SUMMARY | 2025-05-13 19:33 | XMS_ITS | Encounter Summary ---
Author Organization [facility] Address [address] [employer] [facility] [address] [place] [address] Phone Care Team Providers Care Motor Block Mechanic Name Role Phone Carey Boyd Primary Care Provider [phone] Regulo Lundberg MD Unavailable [phone] Shanda Wilkinson MD Unavailable [phone] Shanda Wilkinson MD Unavailable Elicia Valentin Primary Care Provider [phone] Encounter Details Date Type Department Care Team (Late st Contact Info) Description 12/08/2021 Procedure Pass [facility] Interventional X-ray Imaging, [place] [address] [place], [place] [id number] Social History Tobacco Use Types Packs/Day Years [...] Description 05/22/2025 10:45 AM EST Office [place] [facility] Department of Orthopaedic Surgery, Foot & Ankle Service [address] [facility], 3rd Floor, [address] [place] [address] Guillermo Pineda MD [address] [facility] 2ND [place] [address] [email or web address] documented as of this encounter Visit Diagnoses Not on filedocumented in this encounter Care Teams Motor Block Mechanic Relationship Specialty Start Date End Date Carey Boyd PA [address] [place] [address] PCP - General Photo Lab Manager 08/13/20 04/23/25 Elicia Valentin PA [address] [place] [address] PCP - General Physician Geothermal Hvac Technician 04/24/25 Regulo Lundberg MD [address] [place] [address] [email or web address] Insurance Assigned Provider 11/16/20 04/18/22 Shanda Wilkinson MD [address] [place] [address] [email or web address] Insurance Assigned Provider 04/18/22 01/18/23 Shanda Wilkinson MD [address] [place] [address] [email or web address] Insurance Assigned Provider 04/18/22 02/19/23 documented as of this encounter Additional Source Comments The information contained in this document represents components of the legal health record. It is not the complete legal health record.[facility]
--- OUTSIDE RECORDS SUMMARY | 2025-05-13 19:33 | XMS_ITS | Encounter Summary ---
Author Organization [facility] Address [address] [place] [facility] [address] [place] [address] Phone Care Team Providers Care Database Marketing Specialist Name Role Phone Carey Boyd Primary Care Provider [phone] Regulo Lundberg MD Unavailable [phone] Shanda iWlkinson MD Unavailable [phone] Shanda Wilkinson MD Unavailable [phone] Elicia Valentin Primary Care Provider [phone] Encounter Details Date Type Department Care Team (Late st Contact Info) Description 01/19/2022 Procedure Pass [facility] 30 [place] [address] Social History Tobacco Use Types Packs/Day Years [...] Description 05/22/2025 10:45 AM EST Office Visit [facility] Department of Orthopaedic Surgery, Foot & Ankle Service [address] [facility], 3rd Floor, [address] [place] [address] Guillermo Pineda MD [address] [address]ND [place] [address] [email or web address] documented as of this encounter Visit Diagnoses Not on filedocumented in this encounter Care Teams Database Marketing Specialist Relationship Specialty Start Date End Date Carey Boyd PA [address] [place] [address] PCP - General Forest Aide 08/13/20 04/23/25 Elicia Valentin PA [address] [place] [address] PCP - General Physician Poultry Service Technician 04/24/25 Reuglo Lundberg MD [address] [place] [address] [email or web address] Insurance Assigned Provider 11/16/20 04/18/22 Shanda Wilkinson MD [address] [place] [address] [email or web address] Insurance Assigned Provider 04/18/22 01/18/23 Shanda Wilkinson MD [address] [place] [address] [email or web address] Insurance Assigned Provider 04/18/22 02/19/23 documented as of this encounter Additional Source Comments The information contained in this document represents components of the legal health record. It is not the complete legal health record.[facility]
--- OUTSIDE RECORDS SUMMARY | 2025-05-13 19:33 | XMS_ITS | Encounter Summary ---
Author Organization [facility] Address [address] [facility] [address] [place] [address] Phone Care Team Providers Care Strike Planning Applications Name Role Phone Edmund Cope MD Primary Care Provider + Edmund Cope MD Unavailable [phone] Edmund Cope MD Unavailable [phone] Edmund Cope MD Primary Care Provider + Shannon Garcia NP Primary Care Provid er + Regulo Lundberg MD Unavailable + Carey Boyd Primary Care Provider [phone] Natasha Cerrato RN Unavailable Shanda Wilkinson MD Unavailable + Regulo Lundberg MD Unavailable + Shanda Wilkinson MD Unavailable + Shanda Wilkinson MD Unavailable + Elicia Valentin Primary Care Provider [phone] Encounter Details Date Type Department Care Team (Late st Contact Info) Description 07/07/2017 Procedure Pass [place] Admitting Dept - Virtual Department 30 [place] [address] Social History Tobacco Use Types Packs/Day Years [...] Description 05/22/2025 10:45 AM EST Office Visit [facility] Department of Orthopaedic Surgery, Foot & Ankle Service [address] [facility], 3rd Floor, [address] [place] [address] Guillermo Pineda MD [address] [facility] 2ND [place] [address] [email or web address] documented as of this encounter Visit Diagnoses Not on filedocumented in this encounter Care Teams Strike Planning Applications Relationship Specialty Start Date End Date Edmund Cope MD [email or web address] PCP - General Internal Medicine 05/16/17 01/07/20 Edmund Cope MD [email or web address] PCP - General Internal Medicine 01/08/20 02/14/20 Shannon Garcia NP [address] [place] [address] [email or web address] PCP - General Family Medicine 02/15/20 08/12/20 Carey Boyd PA [address] [place] [address] PCP - General Maintenance Worker House Trailer 08/13/20 04/23/25 Elicia Valentin PA [address] [place] [address] PCP - General Physician Table Games Supervisor 04/24/25 Edmund Cope MD [address] [place] [address] [email or web address] Insurance Assigned Provider 10/14/18 03/24/19 Edmund Cope MD [address] [place] [address] [email or web address] Insurance Assigned Provider 09/19/19 04/19/20 Regulo Lundberg MD [address] [place] [address] Insurance Assigned Provider 04/19/20 09/20/20 Natasha Cerrato RN 10 [place] [address] PHCM Utility Forester 08/14/20 08/31/20 Shanda Wilkinson MD [address] [place] [address] Insurance Assigned Provider 09/20/20 11/16/20 Regulo Lundberg MD [address] [place] [address] [email or web address] Insurance Assigned Provider 11/16/20 04/18/22 Shanda Wilkinson MD [address] [place] [address] [email or web address] Insurance Assigned Provider 04/18/22 01/18/23 Shanda Wilkinson MD [address] [place] [address] [email or web address] Insurance Assigned Provider 04/18/22 02/19/23 documented as of this encounter Additional Source Comments The information contained in this document represents components of the legal health record. It is not the complete legal health record.[facility]
--- OUTSIDE RECORDS SUMMARY | 2025-05-13 19:33 | XMS_ITS | Encounter Summary ---
Author Organization [facility] Address [address] [employer] [facility] [address] [place] [address] Phone Care Team Providers Care Silk Spreader Name Role Phone Carey Boyd Primary Care Provider [phone] Regulo Lundberg MD Unavailable Shanda Wilkinson MD Unavailable [phone] Shanda Wilkinson MD Unavailable [phone] Elicia Valentin Primary Care Provider [phone] Encounter Details Date Type Department Care Team (Late st Contact Info) Description 10/29/2021 Procedure Pass , [facility] 30 [place] [address] Social History Tobacco Use Types Packs/Day Years [...] Description 05/22/2025 10:45 AM EST Office Visit [facility] Department of Orthopaedic Surgery, Foot & Ankle Service [address] [facility], 3rd Floor, [address] [place] [address] Guillermo Pineda MD [address] [facility] [address]ND [place] [address] [email or web address] documented as of this encounter Visit Diagnoses Not on filedocumented in this encounter Care Teams Silk Spreader Relationship Specialty Start Date End Date Carey Boyd PA [address] [place] [address] PCP - General Tourism Radio Presenter 08/13/20 04/23/25 Elicia aVlentin PA [address] [place] [address] PCP - General Physician Seed Service Advisor 04/24/25 Regulo Lundberg MD [address] [place] [address] [email or web address] Insurance Assigned Provider 11/16/20 04/18/22 Shanda Wilkinson MD [address] [place] [address] [email or web address] Insurance Assigned Provider 04/18/22 01/18/23 Shanda Wilkinson MD [address] [place] [address] [email or web address] Insurance Assigned Provider 04/18/22 02/19/23 documented as of this encounter Additional Source Comments The information contained in this document represents components of the legal health record. It is not the complete legal health record.[facility]
--- OUTSIDE RECORDS SUMMARY | 2025-05-13 19:33 | XMS_ITS | Encounter Summary ---
Author Organization [facility] Address [address] [facility] [address] [place] [address] Phone Care Team Providers Care Sustainable Landscape Architect Name Role Phone Carey Boyd Primary Care Provider [phone] Regulo Lundberg MD Unavailable Shanda Wilkinson MD Unavailable Shanda Wilkinson MD Unavailable Elicia Valentin Primary Care Provider [phone] Encounter Details Date Type Department Care Team (Late st Contact Info) Description 12/08/2021 Procedure Pass [facility] MR Imaging, [place] [address] [place] [address] Social History Tobacco Use Types Packs/Day Years [...] Description 05/22/2025 10:45 AM EST Office Visit [facility] Department of Orthopaedic Surgery, Foot & Ankle Service [address] [facility], 3rd Floor, [address] [place] [address] Guillermo Pineda MD [address] [facility] 2ND [place] [address] [email or web address] documented as of this encounter Visit Diagnoses Not on filedocumented in this encounter Care Teams Sustainable Landscape Architect Relationship Specialty Start Date End Date Carey Boyd PA [address] [place] [address] PCP - General Medical Dosimetrist 08/13/20 04/23/25 Elicia Valentin PA [address] [place] [address] PCP - General Physician Buffet Runner 04/24/25 Regulo Lundberg MD [address] [place] [address] [email or web address] Insurance Assigned Provider 11/16/20 04/18/22 Shanda Wilkinson MD [address] [place] [address] Insurance Assigned Provider 04/18/22 01/18/23 Shanda Wilkinson MD [address] [place] [address] [email or web address] Insurance Assigned Provider 04/18/22 02/19/23 documented as of this encounter Additional Source Comments The information contained in this document represents components of the legal health record. It is not the complete legal health record.[facility]
--- OUTSIDE RECORDS SUMMARY | 2025-05-13 19:33 | XMS_ITS | Encounter Summary ---
Author Organization [facility] Address [address] [place] [address] Phone Care Team Providers Care Can Tester Name Role Phone Carey Boyd Primary Care Provider [phone] Shanda Wilkinson MD Unavailable [phone] Elicia Valentin Primary Care Provider [phone] Encounter Details Date Type Department Care Team (Late st Contact Info) Description 01/24/2023 Procedure Pass [address] [place] [address] Social History Tobacco Use Types Packs/Day Years [...] Description 05/22/2025 10:45 AM EST Office Visit [facility] Department of Orthopaedic Surgery, Foot & Ankle Service [address] [facility], 3rd Floor, [address] [place] [address] Guillermo Pineda MD [address] [facility] [address] [place] [address] [email or web address] documented as of this encounter Visit Diagnoses Not on filedocumented in this encounter Care Teams Can Tester Relationship Specialty Start Date End Date Carey Boyd PA [address] [place] [address] PCP - General Display Department Manager 08/13/20 04/23/25 Elicia Valentin PA [address] [place] [address] PCP - General Physician Facilities Maintenance Technician 04/24/25 Shanda Wilkinson MD [address] [place] [address] [email or web address] Insurance Assigned Provider 04/18/22 02/19/23 documented as of this encounter Additional Source Comments The information contained in this document represents components of the legal health record. It is not the complete legal health record.[facility]
--- OUTSIDE RECORDS SUMMARY | 2025-05-13 19:33 | XMS_ITS | Encounter Summary ---
Author Organization [facility] Address [address] [facility] [address] [place] [address] Phone Care Team Providers Care Refrigeration Mechanic Name Role Phone Edmund Cope MD [...] Unavailable + Elicia Valentin Primary Care Provider [phone] Reason for Referral * Physical Therapy (Routine) - Closed Specialty Diagnoses / Procedures Referred By Contac t Referred To Contact Physical Therapy Diagnoses Encounter for rehabilitation Left Ankle Procedures Evaluate & Treat Guillermo Pineda MD Phone: tel: fax: [email or web address] [facility] [address] [place] [address] Phone: tel: Referral ID Status Reason Start Date Expiration Date Visits Re quested Visits Authorized [id number] Closed 12/06/2019 06/12/2020 20 20 Encounter Details Date Type Department Care Team (Latest Contact Info) Description 12/06/2019 Transcribe Orders [facility] 4 [place] [address] Guillermo Pineda MD [address] [facility] 2ND [place] [address] [email or web address] Encounter for rehabilitation (Primary Dx) Social [...] Description 05/22/2025 10:45 AM EST Office Visit [facility] Department of Orthopaedic Surgery, Foot & Ankle Service [address] [facility], 3rd Floor, [address] [place] [address] Guillermo Pineda MD [address] [facility] [address] [place] [address] [email or web address] Scheduled Referrals Name Type Priority Associated Diagnoses Orde r Schedule Ambulatory referral to [facility] Physical Therapy Outpatient Referral Routine Encounter for rehabilitation Ordered: 12/06/2019 documented as of this encounter Visit Diagnoses Diagnosis Encounter for rehabilitation- Primary documented in this encounter Care Teams Refrigeration Mechanic Relationship Specialty Start Date End Date Edmund Cope MD [email or web address] PCP - General Internal Medicine 05/16/17 01/07/20 Edmund Cope MD [email or web address] PCP - General Internal Medicine 01/08/20 02/14/20 Shannon Garcia NP [address] [place] [address] [email or web address] PCP - General Family Medicine 02/15/20 08/12/20 Carey Boyd PA [address] [place] [address] PCP - General Decorating Inspector 08/13/20 04/23/25 Elicia Valentin PA [address] [place] [address] PCP - General Physician Employee Relations Administrator 04/24/25 Edmund Cope MD [address] [place] [address] [email or web address] Insurance Assigned Provider 09/19/19 04/19/20 Regulo Lundberg MD [address] [place] [address] [email or web address] Insurance Assigned Provider 04/19/20 09/20/20 Natasha Cerrato, RN [address] [place] [address] [facility] Quartz Cutter 08/14/20 08/31/20 Shanda Wilkinson MD [address] [place] [address] Insurance Assigned Provider 09/20/20 11/16/20 Regulo Lundberg MD [address] [place] [address] Insurance Assigned Provider 11/16/20 04/18/22 Shanda Wilkinson MD [address] [place] [address] Insurance Assigned Provider 04/18/22 01/18/23 Shanda Wilkinson MD [address] [place] [address] [email or web address] Insurance Assigned Provider 04/18/22 02/19/23 documented as of this encounter Additional Source Comments The information contained in this document represents components of the legal health record. It is not the complete legal health record.[facility]
--- OUTSIDE RECORDS SUMMARY | 2025-05-13 19:33 | XMS_ITS | Encounter Summary ---
Author Organization [facility] Address [address] [facility] [address] [place] [address] Phone Care Team Providers Care Photogrammetric Tech Name Role Phone Edmund Cope MD Primary Care Provider + Edmund Cope MD Unavailable [phone] Edmund Cope MD Unavailable [phone] Edmund Cope MD Primary Care Provider + Shannon Garcia NP Primary Care Provid er + Regulo Lundberg MD Unavailable + Carey Boyd Primary Care Provider [phone] Natasha Cerrato RN Unavailable Shanda Wilkinson MD Unavailable + Regulo Lundberg MD Unavailable + Shanda Wilkinson MD Unavailable + Shanda Wilkinson MD Unavailable [phone] Elicia Valentin Primary Care Provider [phone] Encounter Details Date Type Department Care Team (Late st Contact Info) Description 08/09/2018 Ancillary Orders Virtual Department 30 [place] [address] Aniya Jimenez MD [address] [facility] [address] [place] [address] Abnormal involuntary movement Social History Tobacco Use [...] Orthopaedic Surgery, Foot & Ankle Service 55 [facility], 3rd Floor, [address] [place] [address] Guillermo Pineda MD [address] [facility] 2ND [place] [address] [email or web address] documented as of this encounter Results * EEG (08/11/2018 2:07 PM EST) Anatomical Region Laterality Modality EEG Narrative 08/14/2018 3:34 PM EST [facility] AFFILIATE ELECTROENCEPHALOGRAPHY (EEG) LAB INTRODUCTION: The patient is [...] persistent focal asymmetries occurred. MD Sameer Berrios [facility] Aniya Jimenez MD NEUROLOGY ORDERABLES Fi nal Result documented in this encounter Visit Diagnoses Diagnosis Abnormal involuntary movement Abnormal involuntary movements Abnormal involuntary movement Abnormal involuntary movements documented in this encounter Care Teams Photogrammetric Tech Relationship Specialty Start Date End Date Edmund Cope MD [email or web address] PCP - General Internal Medicine 05/16/17 01/07/20 Edmund Cope MD [email or web address] PCP - General Internal Medicine 01/08/20 02/14/20 Shannon Garcia NP [address] [place] [address] PCP - General Family Medicine 02/15/20 08/12/20 Carey Boyd PA [address] [place] [address] PCP - General Rig Site Engineer 08/13/20 04/23/25 Elicia Valentin PA [address] [place] [address] PCP - General Physician Sheet Metal Layout Mechanic 04/24/25 Edmund Cope MD [address] [place] [address] [email or web address] Insurance Assigned Provider 10/14/18 03/24/19 Edmund Cope MD [address] [place] [address] [email or web address] Insurance Assigned Provider 09/19/19 04/19/20 Regulo Lundberg MD [address] [place] [address] [email or web address] Insurance Assigned Provider 04/19/20 09/20/20 Natasha Cerrato RN [address] [place] [address] [email or web address] PHC Hand Gluer And Slicer 08/14/20 08/31/20 Shanda Wilkinson MD [address] [place] [address] [email or web address] Insurance Assigned Provider 09/20/20 11/16/20 Regulo Lundberg MD [address] [place] [address] [email or web address] Insurance Assigned Provider 11/16/20 04/18/22 Shanda Wilkinson MD [address] [place] [address] [email or web address] Insurance Assigned Provider 04/18/22 01/18/23 Shanda Wilkinson MD [address] [place] [address] [email or web address] Insurance Assigned Provider 04/18/22 02/19/23 documented as of this encounter Additional Source Comments The information contained in this document represents components of the legal health record. It is not the complete legal health record.[facility]
--- OUTSIDE RECORDS SUMMARY | 2025-05-13 19:33 | XMS_ITS | Encounter Summary ---
Author Organization [facility] Address [address] [facility] [address] [place] [address] Phone Care Team Providers Care Automotive Glass Installer Name Role Phone Edmund Cope MD Unavailable [phone] Shannon Garcia NP Primary Care Provid er Regulo Lundberg MD Unavailable Carey Boyd Primary Care Provider [phone] Natasha Cerrato RN Unavailable Shanda Wilkinson MD Unavailable Regulo Lundberg MD Unavailable Shanda Wilkinson MD Unavailable [phone] Shanda Wilkinson MD Unavailable Elicia Valentin Primary Care Provider Reason for Referral * Outpatient Procedure - Closed Specialty Diagnoses / Procedures Referred By Meche t Referred To Contact Radiology Diagnoses Nausea Vomiting without nausea, intractability of vomiting not specified, unspecified vomiting type Abnormal weight loss Procedures NM Gastric Emptying Moise Gomez MD Phone: tel: fax: [email or web address] Referral ID Status Reason Start Date Expiration Date Visits Re quested Visits Authorized [id number] Closed 03/11/2020 03/11/2021 1 1 Encounter Details Date Type Department Care Team (Latest Contact Info) Description 03/11/2020 Transcribe Orders Virtual Department 30 [place] [address] Moise Gomez MD [address] [address] [email or web address] Nausea (Primary Dx); Vomiting without [...] Description 05/22/2025 10:45 AM EST Office Visit [facility] Department of Orthopaedic Surgery, Foot & Ankle Service [address] [place] [address], 3rd Floor, [address] [place] [address] Guillermo Pineda MD [address] [facility] 2ND [place] [address] [email or web address] documented as of this encounter Results * [...] activity is still present in the stomach (yyzqlj86-10%) At two hours 45% of activity is still present in the stomach (dhrybi57-50%) At four hours is 2.5% of activity is still present in the stomach (normal0-10%) IMPRESSION: Normal gastric emptying. POS - [id number] Moise Gomez MD [facility] Final Result documented in this encounter Visit Diagnoses Diagnosis Nausea- Primary Nausea alone Vomiting without nausea, intractability of vomiting not specified, unspecified vomiting type Abnormal weight loss Loss of weight Nausea Nausea alone Vomiting without nausea, intractability of vomiting not specified, unspecified vomiting type Abnormal weight loss Loss of weight documented in this encounter Care Teams Automotive Glass Installer Relationship Specialty Start Date End Date Shannon Garcia NP [address] [place] [address] [email or web address] PCP - General Family Medicine 02/15/20 08/12/20 Carey Boyd PA [address] [place] [address] PCP - General Medical Massage Therapist 08/13/20 04/23/25 Elicia Valentin PA [address] [place] [address] PCP - General Physician Revenue Enforcement Collection Agent 04/24/25 Edmund Cope MD [address] [place] [address] [email or web address] Insurance Assigned Provider 09/19/19 04/19/20 Regulo Lundberg MD [address] [place] [address] [email or web address] Insurance Assigned Provider 04/19/20 09/20/20 Natasha Cerrato, FRITZ [address] [place] [address] [email or web address] [facility] Dynamite Shooter 08/14/20 08/31/20 Shanda Wilkinson MD [address] [place] [address] Insurance Assigned Provider 09/20/20 11/16/20 Regulo Lundberg MD [address] [place] [address] [email or web address] Insurance Assigned Provider 11/16/20 04/18/22 Shanda Wilkinson MD [address] [place] [address] [email or web address] Insurance Assigned Provider 04/18/22 01/18/23 Shanda Wilkinson MD [address] [place] [address] [email or web address] Insurance Assigned Provider 04/18/22 02/19/23 documented as of this encounter Additional Source Comments The information contained in this document represents components of the legal health record. It is not the complete legal health record.[facility]
--- OUTSIDE RECORDS SUMMARY | 2025-05-13 19:33 | XMS_ITS | Encounter Summary ---
Author Organization [facility] Address [address] [facility] [address] [place] [address] Phone Care Team Providers Care Planner Internship Name Role Phone Shannon Garcia NP Primary Care Provid er Regulo Lundberg MD Unavailable [phone] Carey Boyd Primary Care Provider [phone] Natasha Cerrato RN Unavailable Shanda Wilkinson MD Unavailable Regulo Lundberg MD Unavailable [phone] Shanda Wilkinson MD Unavailable [phone] Shanda Wilkinson MD Unavailable [phone] Elicia Valentin Primary Care Provider [phone] Encounter Details Date Type Department Care Team (Late st Contact Info) Description 05/15/2020 Procedure Pass [facility] [address] [place], [place] [phone] Social History Tobacco Use Types Packs/Day Years [...] Description 05/22/2025 10:45 AM EST Office Visit [facility] Department of Orthopaedic Surgery, Foot & Ankle Service [address] [facility], 3rd Floor, [address] [place] [address] Guillermo Pineda MD [address] [facility] [address]ND [place] [address] [email or web address] documented as of this encounter Visit Diagnoses Not on filedocumented in this encounter Care Teams Planner Internship Relationship Specialty Start Date End Date Shannon Garcia NP [address] [place] [address] [email or web address] PCP - General Family Medicine 02/15/20 08/12/20 Carey Boyd PA [address] [place] [address] PCP - General Forensic Analyst 08/13/20 04/23/25 Elicia Valentin PA [address] [place] [address] PCP - General Physician Copy Center Specialist 04/24/25 Regulo Lundberg MD [address] [place] [address] [email or web address] Insurance Assigned Provider 04/19/20 09/20/20 Natasha Cerrato RN [address] [place] [address] [facility] Factorer 08/14/20 08/31/20 Shanda Wilkinson MD [address] [place] [address] Insurance Assigned Provider 09/20/20 11/16/20 Regulo Lundberg MD [address] [place] [address] [email or web address] Insurance Assigned Provider 11/16/20 04/18/22 Shanda Wilkinson MD [address] [place] [address] Insurance Assigned Provider 04/18/22 01/18/23 Shanda Wilkinson MD [address] [place] [address] Insurance Assigned Provider 04/18/22 02/19/23 documented as of this encounter Additional Source Comments The information contained in this document represents components of the legal health record. It is not the complete legal health record.[facility]
--- OUTSIDE RECORDS SUMMARY | 2025-05-13 19:33 | XMS_ITS | Encounter Summary ---
Author Organization [facility] Address [address] [facility] [address] [place] [address] Phone Care Team Providers Care Comber Tender Name Role Phone Edmund Cope MD [...] Unavailable + Elicia Valentin Primary Care Provider [phone] Reason for Referral * MRI/CAT Scan - Closed Specialty Diagnoses / Procedures Referred By Contac t Referred To Contact Radiology Diagnoses Multiple joint pain Arthralgia, unspecified joint Procedures MRI Hand (Right) Clay Cavazos MD Phone: tel: fax: Referral ID Status Reason Start Date Expiration Date Visits Re quested Visits Authorized [id number] Closed 01/21/2020 07/19/2020 1 1 * MRI/CAT Scan - Closed Specialty Diagnoses / Procedures Referred By Contac t Referred To Contact Radiology Diagnoses Multiple joint pain Arthralgia, unspecified joint Procedures MRI Hand (Left) Clay Cavazos MD Phone: tel: fax: Referral ID Status Reason Start Date Expiration Date Visits Re quested Visits Authorized [id number] Closed 01/03/2020 03/06/2020 1 1 Encounter Details Date Type Department Care Team (Latest Contact Info) Description 01/04/2020 Transcribe Orders Virtual Department 30 [place] [address] Clay Cvaazos MD [address] [place] [address] Multiple joint pain (Primary Dx); Arthralgia, unspecified [...] Description 05/22/2025 10:45 AM EST Office Visit [facility] Department of Orthopaedic Surgery, Foot & Ankle Service [address] [place] [address] Floor, [address] [place] [address] Guillermo Pineda MD [address] [facility] 2ND [place] [address] [email or web address] documented as of this encounter Results * MRI HAND WITH AND WITHOUT CONTRAST (RIGHT) (01/25/2020 10:12 PM EDT) Anatomical Region Laterality Modality Hand Right Magnetic Resonan ce 01/26/2020 8:15 AM EDT Impressions 01/26/2020 8:20 AM EDT Unremarkable MRI appearance of the hand. No indications of tenosynovitis, arthritis or other explanation of pain. POS [id number] Narrative 01/26/2020 8:20 AM EDT TECHNIQUE: 1.5 [...] tenosynovitis,arthritis or other explanation of pain. POS [id number] us Clay Cavazos MD IMG MR EXTREMITY Final [...] joint documented in this encounter Care Teams Comber Tender Relationship Specialty Start Date End Date Edmund Cope MD [email or web address] PCP - General Internal Medicine 05/16/17 01/07/20 Edmund Cope MD [email or web address] PCP - General Internal Medicine 01/08/20 02/14/20 Shannon Garcia NP [address] [place] [address] [email or web address] PCP - General Family Medicine 02/15/20 08/12/20 Carey Boyd PA [address] [place] [address] PCP - General Lead Ruby On Rails Developer 08/13/20 04/23/25 Elicia Valentin PA [address] [place] [address] PCP - General Physician Fuel Tank Sealer And Tester 04/24/25 Edmund Cope MD [address] [place] [address] [email or web address] Insurance Assigned Provider 09/19/19 04/19/20 Regulo Lundberg MD [address] [place] [address] [email or web address] Insurance Assigned Provider 04/19/20 09/20/20 Natasha Cerrato, RN [address] [place] [address] [facility] Registered Radiologic Technologist 08/14/20 08/31/20 Shanda Wilkinson MD [address] [place] [phone] Insurance Assigned Provider 09/20/20 11/16/20 Regulo Lundberg MD [address] [place] [address] [email or web address] Insurance Assigned Provider 11/16/20 04/18/22 Shanda Wilkinson MD [address] [place] [phone] Insurance Assigned Provider 04/18/22 01/18/23 Shanda Wilkinson MD [address] [place] [address] [email or web address] Insurance Assigned Provider 04/18/22 02/19/23 documented as of this encounter Additional Source Comments The information contained in this document represents components of the legal health record. It is not the complete legal health record.[facility]
--- OUTSIDE RECORDS SUMMARY | 2025-05-13 19:33 | XMS_ITS | Encounter Summary ---
Author Organization [facility] Address [address] [facility] [place] [address] Phone Care Team Providers Care Client Development Manager Name Role Phone Edmund Cope MD Primary Care Provider + Edmund Cope MD Unavailable [phone] Edmund Cope MD Primary Care Provider + Shannon Garcia NP Primary Care Provid er + Regulo Lundberg MD Unavailable + Carey Boyd Primary Care Provider [phone] Natasha Cerrato RN Unavailable Shanda Wilkinson MD Unavailable + Regulo Lundberg MD Unavailable + Shanda Wilkinson MD Unavailable + Shanda Wilkinson MD Unavailable + Elicia Valentin Primary Care Provider [phone] Encounter Details Date Type Department Care Team (Late st Contact Info) Description 01/04/2020 Procedure Pass [facility], [facility] [address] [place] [address] Social History Tobacco Use Types Packs/Day Years [...] 10:45 AM EST Office [place] [facility] [place] of Orthopaedic Surgery, Foot & Ankle Service [address] [facility], 3rd Floor, [address] [place] [address] Guillermo Pineda MD [address] [facility] 2ND [place] [address] [email or web address] documented as of this encounter Visit Diagnoses Not on filedocumented in this encounter Care Teams Client Development Manager Relationship Specialty Start Date End Date Edmund Cope MD [email or web address] PCP - General Internal Medicine 05/16/17 01/07/20 Edmund Cope MD [email or web address] PCP - General Internal Medicine 01/08/20 02/14/20 Shannon Garcia NP [address] [place] [address] [email or web address] PCP - General Family Medicine 02/15/20 08/12/20 Carey Boyd PA [address] [place] [address] PCP - General Infectious Diseases Physician 08/13/20 04/23/25 Elicia Valentin PA [address] [place] [address] PCP - General Physician Dispatcher Service Or Work 04/24/25 Edmund Cope MD [address] [place] [address] [email or web address] Insurance Assigned Provider 09/19/19 04/19/20 Regulo Lundberg MD [address] [place] [address] [email or web address] Insurance Assigned Provider 04/19/20 09/20/20 Natasha Cerrato, FRITZ [address] [place] [address] [email or web address] [facility] Care Team Coordinator Scheduler 08/14/20 08/31/20 Shanda Wilkinson MD [address] [place] [address] Insurance Assigned Provider 09/20/20 11/16/20 Regulo Lundberg MD [address] [place] [address] [email or web address] Insurance Assigned Provider 11/16/20 04/18/22 Shanda Wilkinson MD [address] [place] [address] Insurance Assigned Provider 04/18/22 01/18/23 Shanda Wilkinson MD [address] [place] [address] [email or web address] Insurance Assigned Provider 04/18/22 02/19/23 documented as of this encounter Additional Source Comments The information contained in this document represents components of the legal health record. It is not the complete legal health record.[facility]
--- OUTSIDE RECORDS SUMMARY | 2025-05-13 19:33 | XMS_ITS | Encounter Summary ---
Author Organization [facility] Address [address] [facility] [address] [place] [address] Phone Care Team Providers Care Transcript Clerk Name Role Phone Edmund Cope MD Primary [...] Unavailable + Elicia Valentin Primary Care Provider [phone] Encounter Details Date Type Department Care Team (Late st Contact Info) Description 05/13/2017 Procedure Pass [facility], Mri - Main [address] [address] Social History Tobacco Use Types Packs/Day Years [...] Description 05/22/2025 10:45 AM EST Office Visit [facility] Department of Orthopaedic Surgery, Foot & Ankle Service [address] [facility], 3rd Floor, [address] [place] [address] Guillermo Pineda MD [address] [facility] 2ND [place] [address] [email or web address] documented as of this encounter Visit Diagnoses Not on filedocumented in this encounter Care Teams Transcript Clerk Relationship Specialty Start Date End Date Edmund Cope MD [email or web address] PCP - General Internal Medicine 05/16/17 01/07/20 Edmund Cope MD [email or web address] PCP - General Internal Medicine 01/08/20 02/14/20 Shannon Garcia NP [address] [place] [address] [email or web address] PCP - General Family Medicine 02/15/20 08/12/20 Carey Boyd PA [address] [place] [address] PCP - General Agility Instructor 08/13/20 04/23/25 Elicia Valentin PA [address] [place] [address] PCP - General Physician Janitor And Cleaner 04/24/25 Edmund Cope MD [address] [place] [address] [email or web address] Insurance Assigned Provider 10/14/18 03/24/19 dEmund Cope MD [address] [place] [address] [email or web address] Insurance Assigned Provider 09/19/19 04/19/20 Regulo Lundberg MD [address] [place] [address] [email or web address] Insurance Assigned Provider 04/19/20 09/20/20 Natasha Cerrato RN [address] [place] [address] [email or web address] PH[facility] District Resource Officer 08/14/20 08/31/20 Shanda Wilkinson MD [address] [place] [address] [email or web address] Insurance Assigned Provider 09/20/20 11/16/20 Regulo Lundberg MD [address] [place] [address] [email or web address] Insurance Assigned Provider 11/16/20 04/18/22 Shanda Wilkinson MD [address] [place] [address] [email or web address] Insurance Assigned Provider 04/18/22 01/18/23 Shanda Wilkinson MD [address] [place] [address] [email or web address] Insurance Assigned Provider 04/18/22 02/19/23 documented as of this encounter Additional Source Comments The information contained in this document represents components of the legal health record. It is not the complete legal health record.[facility]
--- OUTSIDE RECORDS SUMMARY | 2025-05-13 19:33 | XMS_ITS | Encounter Summary ---
Author Organization [facility] Address [address] [facility] [address] [place] [address] Phone Care Team Providers Care Title Clerk Name Role Phone Edmund Cope MD Unavailable [phone] Edmund Cope MD Primary Care Provider [phone] Shannon Garcia NP Primary Care Provid er Regulo Lundberg MD Unavailable [phone] Carey Boyd Primary Care Provider [phone] Natasha Cerrato RN Unavailable Shanda Wilkinson MD Unavailable [phone] Regulo Lundberg MD Unavailable [phone] Shanda Wilkinson MD Unavailable [phone] Shanda Wilkinson MD Unavailable [phone] Elicia Valentin Primary Care Provider Encounter Details Date Type Department Care Team (Late st Contact Info) Description 01/15/2020 Ancillary Orders [facility],Outside Imaging [address] [place], [place] [id number] System, Provider Not In, [facility] [address] [address] Social History Tobacco Use Types Packs/Day Years [...] Description 05/22/2025 10:45 AM EST Office Visit [facility] Department of Orthopaedic Surgery, Foot & Ankle Service [address] [facility], 3rd Floor, [address] [place] [address] Guillermo Pineda MD [address] [facility] 2ND [place] [address] [email or web address] documented as of this encounter Results * [...] on filedocumented in this encounter Care Teams Title Clerk Relationship Specialty Start Date End Date Edmund Cope MD [address] [place] [address] [email or web address] PCP - General Internal Medicine 01/08/20 02/14/20 Shannon Garcia NP [address] [place] [address] [email or web address] PCP - General Family Medicine 02/15/20 08/12/20 Carey Boyd PA [address] [place] [address] PCP - General Shoe Associate 08/13/20 04/23/25 Elicia Valentin PA [address] [place] [address] PCP - General Physician Food Preparation Kitchen Aide 04/24/25 Edmund Cope MD [address] [place] [address] [email or web address] Insurance Assigned Provider 09/19/19 04/19/20 Regulo Lundberg MD [address] [place] [address] Insurance Assigned Provider 04/19/20 09/20/20 Natasha Cerrato RN [address] [place] [address] PHC Senior Genetic Counselor 08/14/20 08/31/20 Shanda Wilkinson MD [address] [place] [address] Insurance Assigned Provider 09/20/20 11/16/20 Regulo Lundberg MD [address] [place] [address] [email or web address] Insurance Assigned Provider 11/16/20 04/18/22 Shanda Wilkinson MD [address] [place] [address] [email or web address] Insurance Assigned Provider 04/18/22 01/18/23 Shanda Wilkinson MD [address] [place] [address] [email or web address] Insurance Assigned Provider 04/18/22 02/19/23 documented as of this encounter Additional Source Comments The information contained in this document represents components of the legal health record. It is not the complete legal health record.[facility]
--- OUTSIDE RECORDS SUMMARY | 2025-05-13 19:33 | XMS_ITS | Encounter Summary ---
Author Organization [facility] Address [address] [facility] [address] [place] [address] Phone Care Team Providers Care Hat Finishing Materials Preparer Name Role Phone Edmund Cope MD Primary [...] Unavailable + Elicia Valentin Primary Care Provider [phone] Reason for Referral * Consultation (Elective) - Closed Specialty Diagnoses / Procedures Referred By Contcoco t Referred To Contact Neurology Diagnoses Myoclonus Chronic ankle pain, unspecified laterality System, Provider Not In, [facility] [address] [place] [id number] [place] [phone] Phone: tel: Referral ID Status Reason Start Date Expiration Date Visits Re quested Visits Authorized [id number] Closed 09/01/2018 09/02/2019 1 1 Encounter Details Date Type Department Care Team (Latest Contact Info) Description 09/01/2018 Transcribe Orders [facility] [address] [place] [phone] Self-Referred, Patient Myoclonus (Primary Dx); Chronic ankle [...] Description 05/22/2025 10:45 AM EST Office Visit [facility] Department of Orthopaedic Surgery, Foot & Ankle Service [address] [place] [address], 3rd Floor, [address] [place] [address] Guillermo Pineda MD [address] [facility] 2ND [place] [address] [email or web address] Scheduled Referrals Name Type Priority Associated Diagnoses Orde r Schedule Ambulatory referral to [facility] Outpatient Referral Routine Myoclonus Chronic ankle pain, unspecified laterality Ordered: 09/01/2018 documented as of this encounter Visit Diagnoses Diagnosis Myoclonus- Primary Chronic ankle pain, unspecified laterality documented in this encounter Care Teams Hat Finishing Materials Preparer Relationship Specialty Start Date End Date Edmund Cope MD [email or web address] PCP - General Internal Medicine 05/16/17 01/07/20 Edmund Cope MD [email or web address] PCP - General Internal Medicine 01/08/20 02/14/20 Shannon Garcia NP [address] [place] [address] [email or web address] PCP - General Family Medicine 02/15/20 08/12/20 Carey Boyd PA [address] [place] [address] PCP - General Brain Wave Technician 08/13/20 04/23/25 Elicia Valentin PA [address] [place] [address] PCP - General Physician Retail Coverage Merchandiser 04/24/25 Edmund Cope MD [address] [place] [address] [email or web address] Insurance Assigned Provider 10/14/18 03/24/19 Edmund Cope MD [address] [place] [address] [email or web address] Insurance Assigned Provider 09/19/19 04/19/20 Regulo Lundberg MD [address] [place] [address] [email or web address] Insurance Assigned Provider 04/19/20 09/20/20 Natasha Cerrato, RN [address] [place] [address] [email or web address] [facility] Electric Motor Rebuilder 08/14/20 08/31/20 Shanda Wilkinson MD [address] [place] [address] [email or web address] Insurance Assigned Provider 09/20/20 11/16/20 Regulo Lundberg MD [address] [place] [address] [email or web address] Insurance Assigned Provider 11/16/20 04/18/22 Shanda Wilkinson MD [address] [place] [address] [email or web address] Insurance Assigned Provider 04/18/22 01/18/23 Shanda Wilkinson MD [address] [place] [address] [email or web address] Insurance Assigned Provider 04/18/22 02/19/23 documented as of this encounter Additional Source Comments The information contained in this document represents components of the legal health record. It is not the complete legal health record.[facility]
--- OUTSIDE RECORDS SUMMARY | 2025-05-13 19:33 | XMS_ITS | Encounter Summary ---
Author Organization [facility] Address [address] [facility] [facility] [address] [place] [address] Phone Care Team Providers Care Claims Auditor Name Role Phone Carey Boyd Primary Care Provider [phone] Regulo Lundberg MD Unavailable [phone] Shanda Wilkinson MD Unavailable [phone] Shanda Wilkinson MD Unavailable [phone] Elicia Valentin Primary Care Provider [phone] Encounter Details Date Type Department Care Team (Late st Contact Info) Description 01/19/2022 Procedure Pass [facility], X-Ray - [facility] [address] [place], [place] [phone] Social History Tobacco Use Types Packs/Day Years [...] Description 05/22/2025 10:45 AM EST Office Visit [facility] Department of Orthopaedic Surgery, Foot & Ankle Service [address] [facility], 3rd Floor, [address] [place] [address] Guillermo Pineda MD [address] [facility] 2ND [place] [address] [email or web address] documented as of this encounter Visit Diagnoses Not on filedocumented in this encounter Care Teams Claims Auditor Relationship Specialty Start Date End Date Carey Boyd PA [address] [place] [address] PCP - General Environmental Health Manager 08/13/20 04/23/25 Elicia Valentin PA [address] [place] [address] PCP - General Physician Manager Massage Department 04/24/25 Regulo Lundberg MD [address] [place] [address] [email or web address] Insurance Assigned Provider 11/16/20 04/18/22 Shanda Wilkinson MD [address] [place] [address] [email or web address] Insurance Assigned Provider 04/18/22 01/18/23 Shanda Wilkinson MD [address] [place] [address] [email or web address] Insurance Assigned Provider 04/18/22 02/19/23 documented as of this encounter Additional Source Comments The information contained in this document represents components of the legal health record. It is not the complete legal health record.[facility]
--- OUTSIDE RECORDS SUMMARY | 2025-05-13 19:33 | XMS_ITS | Encounter Summary ---
Author Organization [facility] Address [address] [facility] [address] [place] [address] Phone Care Team Providers Care Coding Compliance Auditor Name Role Phone Regulo Lundberg MD Unavailable Carey Boyd Primary Care Provider [phone] Natasha Cerrato RN Unavailable Shanda Wilkinson MD Unavailable Regulo Lundberg MD Unavailable Shanda Wilkinson MD Unavailable Shanda Wilkinson MD Unavailable Elicia Valentin Primary Care Provider [phone] Encounter Details Date Type Department Care Team (Late st Contact Info) Description 08/25/2020 Procedure Pass [facility] [address] [place] [address] Social History Tobacco Use Types [...] Surgery, Foot & Ankle Service [address] [facility], 3rd Floor, [address] [place] [address] Guillermo Pineda MD [address] [facility] 2ND [place] [address] documented as of this encounter Visit Diagnoses Not on filedocumented in this encounter Care Teams Coding Compliance Auditor Relationship Specialty Start Date End Date Carey Boyd PA [address] [place] [address] PCP - General Glass Sander 08/13/20 04/23/25 Elicia Valentin PA [address] [place] [address] PCP - General Physician Process Manager 04/24/25 Regulo Lundberg MD [address] [place] [address] Insurance Assigned Provider 04/19/20 09/20/20 Natasha Cerrato, FRITZ [address] [place] [address] PHCM Lighting Engineering Technician 08/14/20 08/31/20 Shanda Wilkinson MD [address] [place] [address] Insurance Assigned Provider 09/20/20 11/16/20 Regulo Lundberg MD [address] [place] [address] [email or web address] Insurance Assigned Provider 11/16/20 04/18/22 Shanda Wilkinson MD [address] [place] [address] [email or web address] Insurance Assigned Provider 04/18/22 01/18/23 Shanda Wilkinson MD [address] [place] [address] [email or web address] Insurance Assigned Provider 04/18/22 02/19/23 documented as of this encounter Additional Source Comments The information contained in this document represents components of the legal health record. It is not the complete legal health record.[facility]
--- OUTSIDE RECORDS SUMMARY | 2025-05-13 19:33 | XMS_ITS | Encounter Summary ---
Author Organization [facility] Address [address] [facility] [address] [place] [address] Phone Care Team Providers Care Program Schedule Clerk Name Role Phone Edmund Cope MD Primary Care Provider + Edmund Cope MD Unavailable [phone] Edmund Cope MD Primary Care Provider + Shannon Garcia NP Primary Care Provid er + Regulo Lundberg MD Unavailable + Carey Boyd Primary Care Provider [phone] Natasha Cerrato RN Unavailable Shanda Wilkinson MD Unavailable + Regulo Lundberg MD Unavailable + Shanda Wilkinson MD Unavailable + Shanda Wilkinson MD Unavailable [phone] Elicia Valentin Primary Care Provider [phone] Encounter Details Date Type Department Care Team (Late st Contact Info) Description 11/14/2019 Procedure Pass [facility], Ct Scan - [facility] [address] [place], [place] [id number] Social History Tobacco Use Types Packs/Day Years [...] Description 05/22/2025 10:45 AM EST Office Visit [facility] Department of Orthopaedic Surgery, Foot & Ankle Service [address] [facility], 3rd Floor, [address] [place] [address] Guillermo Pineda MD [address] [facility] 2ND [place] [address] [email or web address] documented as of this encounter Visit Diagnoses Not on filedocumented in this encounter Care Teams Program Schedule Clerk Relationship Specialty Start Date End Date Edmund Cope MD [email or web address] PCP - General Internal Medicine 05/16/17 01/07/20 Edmund Cope MD [email or web address] PCP - General Internal Medicine 01/08/20 02/14/20 Shannon Garcia NP [address] [place] [address] [email or web address] PCP - General Family Medicine 02/15/20 08/12/20 Carey Boyd PA [address] [place] [address] PCP - General Sanitation Manager 08/13/20 04/23/25 Elicia Valentin PA [address] [place] [address] PCP - General Physician Pallet Rectifier 04/24/25 Edmund Cope MD [address] [place] [address] [email or web address] Insurance Assigned Provider 09/19/19 04/19/20 Regulo Lundberg MD [address] [place] [address] [email or web address] Insurance Assigned Provider 04/19/20 09/20/20 Natasha Cerrato, FRITZ [address] [place] [address] [email or web address] [facility] Jewelry Mold Maker 08/14/20 08/31/20 Shanda Wilkinson MD [address] [place] [address] Insurance Assigned Provider 09/20/20 11/16/20 Regulo Lundberg MD [address] [place] [address] [email or web address] Insurance Assigned Provider 11/16/20 04/18/22 Shanda Wilkinson MD [address] [place] [address] Insurance Assigned Provider 04/18/22 01/18/23 Shanda Wilkinson MD [address] [place] [address] [email or web address] Insurance Assigned Provider 04/18/22 02/19/23 documented as of this encounter Additional Source Comments The information contained in this document represents components of the legal health record. It is not the complete legal health record.[facility]
--- OUTSIDE RECORDS SUMMARY | 2025-05-13 19:33 | XMS_ITS | Encounter Summary ---
Author Organization [facility] Address [address] [facility] [address] [place] [address] Phone Care Team Providers Care Superintendent Board Mill Name Role Phone Edmund Cope MD Primary Care Provider + Edmund Cope MD Unavailable [phone] Edmund Cope MD Primary Care Provider + Shannon Garcia NP Primary Care Provid er + Regulo Lundberg MD Unavailable + Carey Boyd Primary Care Provider [phone] Natasha Cerrato RN Unavailable Shnada Wilkinson MD Unavailable + Regulo Lundberg MD Unavailable + Shanda Wilkinson MD Unavailable + Shanda Wilkinson MD Unavailable + Elicia Valentin Primary Care Provider [phone] Encounter Details Date Type Department Care Team (Late st Contact Info) Description 01/04/2020 Procedure Pass [facility] [address] [place] [address] Social History Tobacco Use Types Packs/Day Years [...] 05/22/2025 10:45 AM EST Office Visit [facility] Department of Orthopaedic Surgery, Foot & Ankle Service [address] [facility], 3rd Floor, [address] [place] [address] Guillermo Pineda MD [address] [facility] 2[address] [place] [address] [email or web address] documented as of this encounter Visit Diagnoses Not on filedocumented in this encounter Care Teams Superintendent Board Mill Relationship Specialty Start Date End Date Edmund Cope MD [email or web address] PCP - General Internal Medicine 05/16/17 01/07/20 Edmund Cope MD [email or web address] PCP - General Internal Medicine 01/08/20 02/14/20 Shannon Garcia NP [address] [place] [address] PCP - General Family Medicine 02/15/20 08/12/20 Carey Boyd PA [address] [place] [address] PCP - General Clinical Lab Scientist 08/13/20 04/23/25 Elicia Valentin PA [address] [place] [address] PCP - General Physician Administrative Liaison 04/24/25 Edmund Cope MD [address] [place] [address] [email or web address] Insurance Assigned Provider 09/19/19 04/19/20 Regulo Lundberg MD [address] [place] [address] [email or web address] Insurance Assigned Provider 04/19/20 09/20/20 Natasha Cerrato, FRITZ [address] [place] [address] [email or web address] [facility] Applications Engineering Manager 08/14/20 08/31/20 Shanda Wilkinson MD [address] [place] [address] Insurance Assigned Provider 09/20/20 11/16/20 Regulo Lundberg MD [address] [place] [address] [email or web address] Insurance Assigned Provider 11/16/20 04/18/22 Shanda Wilkinson MD [address] [place] [address] Insurance Assigned Provider 04/18/22 01/18/23 Shanda Wilkinson MD [address] [place] [address] [email or web address] Insurance Assigned Provider 04/18/22 02/19/23 documented as of this encounter Additional Source Comments The information contained in this document represents components of the legal health record. It is not the complete legal health record.[facility]
--- OUTSIDE RECORDS SUMMARY | 2025-05-13 19:33 | XMS_ITS | Encounter Summary ---
Author Organization [facility] Address [address] [facility] [address] [place] [address] Phone Care Team Providers Care Pearl Glue Drier Name Role Phone Carey Boyd Primary Care Provider [phone] Regulo Lundberg MD Unavailable [phone] Shanda Wilkinson MD Unavailable [phone] Shanda Wilkinson MD Unavailable [phone] Elicia Valentin Primary Care Provider [phone] Encounter Details Date Type Department Care Team (Late st Contact Info) Description 01/27/2021 Procedure Pass [facility] [address] [place] [address] Social History Tobacco Use Types [...] Description 05/22/2025 10:45 AM EST Office Visit [facility] Department of Orthopaedic Surgery, Foot & Ankle Service [address] [facility], 3rd Floor, [address] [place] [address] Guillermo Pineda MD [address] [facility] [address]ND [place] [address] [email or web address] documented as of this encounter Visit Diagnoses Not on filedocumented in this encounter Care Teams Pearl Glue Drier Relationship Specialty Start Date End Date Carey Boyd PA [address] [place] [address] PCP - General Bindery Machine Setter/Set Up Operator 08/13/20 04/23/25 Elicia Valentin PA [address] [place] [address] PCP - General Physician Sand Cleaning Machine Operator 04/24/25 Regulo Lundberg MD [address] [place] [address] [email or web address] Insurance Assigned Provider 11/16/20 04/18/22 Shanda Wilkinson MD [address] [place] [address] [email or web address] Insurance Assigned Provider 04/18/22 01/18/23 Shanda Wilkinson MD [address] [place] [address] [email or web address] Insurance Assigned Provider 04/18/22 02/19/23 documented as of this encounter Additional Source Comments The information contained in this document represents components of the legal health record. It is not the complete legal health record.[facility]
--- OUTSIDE RECORDS SUMMARY | 2025-05-13 19:33 | XMS_ITS | Clinical Summary ---
Author Organization [facility] Address [address] [facility] [place] [address] [place] [address] Phone Care Team Providers Care Maintenance Of Way Supervisor Name Role Phone Elicia Valentin Primary Care Provider [phone] Allergies Active Allergy Reactions Criticality Noted Date [...] nightly at bedtime. 1 1/2 tab daily. 02-28-21 1 Active dextroamphetami ne-amphetamine (ADDERALL) 10 mg [...] 02/04/2023 3:56 PM EDT Plan of Treatment Upcoming Encounters Date Type Department Care Team (Late st Contact Info) Description 05/22/2025 10:45 AM EST Office Visit [facility] Department of Orthopaedic Surgery, Foot & Ankle Service [address] [facility], 3rd Floor, [address] [place] [address] Guillermo Pineda MD [address] [facility] [address] [place] [address] [email or web address] Health Maintenance Due Date Last Done Comments [...] this topic Medical Devices Implanted Type Area Matrix Inspector Device Identifier Shelf Expiration Date Model / Serial / Lot [place] Suture 2 2.3mm 2strand Force Fiber Iconix Intellibraid -Order In Multiples Of 5 - [id number] Implanted:Qty: 3 on 07/07/2017 by Vernon Moses DO at [facility] Right: Shoulder [employer] 11/11/2018 [id number] / / [id number] Screw Bone 3.5x14mm Cortex Self Tapping Fully Threaded Hex Head Ss - [id number] Implanted:Qty: 1 on 11/20/2019 by Guillermo Pineda MD at [facility] Left: Ankle SYNTHES 204.814 / / AUTO#3 LOAD #1 Bone Plate 141x3.5mm 12 Hole Tubular One Third With Collar Lcp Ss - [id number] Implanted:Qty: 1 on 11/20/2019 by uGillermo Pineda MD at [facility] Left: Ankle SYNTHES 241.421 / / AUTO#3 LOAD #1 Screw Bone 2.7x18mm Cortical Self Tapping Fully Threaded Hex Head Ss Bx/1ea - [id number] Implanted:Qty: 1 on 11/20/2019 by Guillermo Pineda MD at [facility] Left: Ankle SYNTHES 202.818 / / AUTO#3 LOAD #1 Screw Bone 2.7x20mm Cortical Self Tapping Fully Threaded Hex Head Ss - [id number] Implanted:Qty: 1 on 11/20/2019 by Guillermo Pineda MD at [facility] Left: Ankle SYNTHES 202.820 / / AUTO#3 LOAD #1 Screw Bone 12x3.5mm Compression Ss Locking Self Tapping Full Thread T15 Stardrive Recess - [id number] Implanted:Qty: 1 on 11/20/2019 by Guillermo Pineda MD at [facility] Left: Ankle SYNTHES 212.102 / / AUTO#3 LOAD #1 Screw Bone 3.5x12mm Cortex Self Tapping Fully Threaded Hex Head Ss - [id number] Implanted:Qty: 2 on 11/20/2019 by Guillermo Pineda MD at [facility] Left: Ankle SYNTHES 204.812 / / AUTO#3 LOAD #1 Screw Bone 3.5x45mm Cortex Self Tapping Fully Threaded Hex Head Ss - [id number] Implanted:Qty: 1 on 11/20/2019 by Guillermo Pineda MD at [facility] Left: Ankle SYNTHES 204.845 / / AUTO#3 LOAD #1 Screw Bone 3.5x50mm Cortex Ss Self Tapping Hexagonal Socket - [id number] Implanted:Qty: 2 on 11/20/2019 by Guillermo Pineda MD at [facility] Left: Ankle SYNTHES 204.850 / / AUTO#3 LOAD #1 Washer Bone 7.0mm Sm Screw Cannulated Ss - Ssterilizer 4, Load 3: Sterilized 2020 Implanted:Qty: 2 on 08/25/2020 by Guillermo Pineda MD at [facility] Left: Foot SYNTHES 219.98 / STERILIZER 4, LOAD 3: STERILIZED 2020 / Screw Bone 30x3.5mm Cannulated Ss Full Thread Hexagonal Socket Flat Head - Discontinued Per Supplier - Ssterilizer 4, Load 3: Sterilized 2020 Implanted:Qty: 1 on 08/25/2020 by Guillermo Pineda MD at [facility] Left: Foot SYNTHES 205.230 / STERILIZER 4, LOAD 3: STERILIZED 2020 / [place] Suture 4.5mm Arthroscopy Reelx Stt Peek Stainless Steel Core Knotless Sharp Tip Expandable Sterile Bx/5ea - [id number] Implanted:Qty: 1 on 07/07/2017 by Vernon Moses DO at [facility] Right: Shoulder [employer] 05/24/2019 [id number] / / [id number] Graft Bone 1.00ml Biocartilage Synthetic Matrix [place] Extracellular Filler Syringe - [id number] Implanted:Qty: 1 on 11/20/2019 by Guillermo Pineda MD at [facility] Left: Ankle [facility] [place] [facility] 04/11/2024 [id number] / [id number] / [place] Suture 2.9mmx12.5 Pushlock Biocomposite Swivelock Vented Bx/5ea - Must Be Ordered In Multiples Of 5's - [id number] Implanted:Qty: 2 on 11/20/2019 by Guillermo Pineda MD at [facility] Left: Ankle [employer] 09/10/2021 [id number] / / [id number] Kit 1.5cc Graft Bone Augment Synthetic Bioabsorbable - [id number] Implanted:Qty: 1 on 11/20/2019 by Guillermo Pineda MD at [facility] Right: Ankle [employer] 05/12/2021 [id number] / / [id number] Guidewire Pipo [id number] Non Threaded - Ssterilizer4, Load3: Sterilized Implanted:Qty: 2 on 08/25/2020 by Guillermo Pineda MD at [facility] Left: Foot SYNTHES 900.721 / STERILIZER4, LOAD3: STERILIZED / 3.5mm Cannulated Screws, Fully Threaded Implanted:Qty: 1 on 08/25/2020 by Guillermo Pineda MD at [facility] Left: Foot 205.224 / / Description:Sterilizer # nicole d #3 August 11, 2020 Explanted Type Area Matrix Inspector Device Identifier Shelf Expiration Date Model / Serial / Lot Screw Bone 18x3.5mm Compression Ss Locking Self Tapping Full Thread T15 Stardrive Recess - [id number] Implanted:Qty: 1 by Guillermo Pineda MD Explanted:Qty: 1 on 11/20/2019 by Guillermo Pineda MD at [facility] Left: Ankle SYNTHES 212.105 / / AUTO#3 LOAD #1 Screw Bone 3.5x14mm Cortex Self Tapping Fully Threaded Hex Head Ss - [id number] Implanted:Qty: 1 Explanted:Qty: 1 on 11/20/2019 at [facility] Left: Ankle SYNTHES 204.814 / / AUTO#3 LOAD #1 Procedures Procedure Name Priority Date/Time Associated Diagnosis Comments PAP TEST Routine 11/16/2023 12:00 AM EDT from Last 3 Months or Most Recently Relevant to Health Maintenance Results * Pap Test (11/16/2023 12:00 AM EDT) Report [address] [address] Drum Tester: Jennifer Boyer MD GLASSWORKER Cytology Report FINAL DIAGNOSIS A. PAP SMEAR (THIN PREP) CE: SPECIMEN ADEQUACY: Satisfactory for evaluation; transformation zone present. INTERPRETATION: NEGATIVE FOR INTRAEPITHELIAL LESION OR MALIGNANCY. This specimen was analyzed by the automated ThinPrep Imaging System (giftee.) and the selected mishra were reviewed by a consultant teacher. Electronically Signed Out By: NICOLE Herndon(ASCP) The [...] 59, 66, 68) Note: Testing performed by [facility]point Onclarity HR-HPV analysis. Clinical correlation is advised. This HPV test was performed at [facility], [address] [place] [address]. This test has been FDA approved for both SurePath and ThinPrep cervical cytology specimens. The accuracy and precision of this test for all other specimen sources has been verified in the Cytopathology Laboratory of the [facility] and has not been cleared or approved by the U.S. Food and Drug Administration. Clinical correlation is advised. CLINICAL HISTORY Date of Last Menstrual Period: 11-06-2023 Other Clinical Conditions: Screening Pap SPECIMEN SOURCE A: PAP SMEAR (THIN PREP) CE Patient Name: IVAN WILKINSON : 1990 (Age: 33) Sex: F Institution: [facility] Location: [facility] Date of Collection: 11/16/2023 Date of Reported: 11/22/2023 13:06 Results to: Shannon Garcia TRACK DRESSER [facility] Final Diagnosis A. PAP SMEAR (THIN PREP) CE: SPECIMEN ADEQUACY: Satisfactory for evaluation; transformation zone present. INTERPRETATION: NEGATIVE FOR INTRAEPITHELIAL LESION OR MALIGNANCY. This specimen was analyzed by the automated ThinPrep Imaging System (giftee.) and the selected mishra were reviewed by a consultant teacher. [facility] Results\Inter pretation A. PAP SMEAR (THIN PREP) CE: Human Papilloma Virus TestNEGATIVE for high-risk Human Papilloma Virus types 16, 18, 45 and the Other high risk probe set (Includes 31, 33, 35, 39, 51, 52, 56, 58, 59, 66, 68)Note: Testing performed by [facility] Onclarity HR-HPV analysis. Clinical correlation is advised. This HPV test was performed at [facility], [address] [place] [address]. This test has been FDA approved for both SurePath and ThinPrep cervical cytology specimens. The accuracy and precision of this test for all other specimen sources has been verified in the Cytopathology Laboratory of the [facility] and has not been cleared or approved by the U.S. Food and Drug Administration. Clinical correlation is advised. [facility] Conversion Type (Conversion Source) 11/16/2023 11/17/2023 10:35 AM EDT us Shannon Garcia NP CYTOLOGY ORDERABLES Edited Result - Final [facility] [address] [place] [address] from Last 3 Months or Most Recently Relevant to Health Maintenance Insurance [facility] AD[employer] [facility] [employer] [facility] [employer] BL[employer] ADMINISTRATORS [facility] ADMINISTRATORS [address] [place] [address] [employer] BENEFITS ADMINISTRATORS [facility] INSURANCE Advance Directives For more information, please contact: [phone] (9AM - 5PM [facility], Tuesday-Tuesday) * Full Code (Presumed) (Latest Code Status on File) Date Activated Date Inactivated Comments 07/07/2017 8:30 AM 07/07/2017 3:58 PM Care Teams Maintenance Of Way Supervisor Relationship Specialty Start Date End Date Elicia Valentin PA [address] [place] [address] PCP - General Physician Personnel Officer 04/24/25 Additional Source Comments The information contained in this document represents components of the legal health record. It is not the complete legal health record.[facility]
--- OUTSIDE RECORDS SUMMARY | 2025-05-13 19:33 | XMS_ITS | Encounter Summary ---
Author Organization [facility] Address [address] [facility] [address] [place] [address] Phone Care Team Providers Care Broth Setter Name Role Phone Edmund Cope MD Primary Care Provider + Edmund Cope MD Unavailable [phone] Edmund Cope MD Primary Care Provider + Shannon Garcia NP Primary Care Provid er + Regulo Lundberg MD Unavailable + Carey Boyd Primary Care Provider [phone] Natasha Cerrato RN Unavailable Shanda Wilkinson MD Unavailable + Regulo Lundberg MD Unavailable + Shanda Wilkinson MD Unavailable + Shanda Wilkinson MD Unavailable [phone] Elicia Valentin Primary Care Provider [phone] Encounter Details Date Type Department Care Team (Late st Contact Info) Description 11/14/2019 Procedure Pass [facility] - [facility] [address] [place], [place] [id number] Social History Tobacco Use Types Packs/Day Years [...] Description 05/22/2025 10:45 AM EST Office Visit [facility] Department of Orthopaedic Surgery, Foot & Ankle Service [address] [facility], 3rd Floor, [address] [place] [address] Guillermo Pineda MD [address] [facility] 2ND [place] [address] [email or web address] documented as of this encounter Visit Diagnoses Not on filedocumented in this encounter Care Teams Broth Setter Relationship Specialty Start Date End Date Edmund Cope MD [email or web address] PCP - General Internal Medicine 05/16/17 01/07/20 Edmund Cope MD [email or web address] PCP - General Internal Medicine 01/08/20 02/14/20 Shannon Garcia NP [address] [place] [address] [email or web address] PCP - General Family Medicine 02/15/20 08/12/20 Carey Boyd PA [address] [place] [address] PCP - General Caul Dresser 08/13/20 04/23/25 Elicia Valentin PA [address] [place] [address] PCP - General Physician Architectural Draftsperson 04/24/25 Edmund Cope MD [address] [place] [address] [email or web address] Insurance Assigned Provider 09/19/19 04/19/20 Regulo Lundberg MD [address] [place] [address] [email or web address] Insurance Assigned Provider 04/19/20 09/20/20 Natasha Cerrato, FRITZ [address] [place] [address] [email or web address] [facility] Engraver Set Up Operator 08/14/20 08/31/20 Shanda Wilkinson MD [address] [place] [phone] Insurance Assigned Provider 09/20/20 11/16/20 Regulo Lundberg MD [address] [place] [address] [email or web address] Insurance Assigned Provider 11/16/20 04/18/22 Shanda Wilkinson MD [address] [place] [address] Insurance Assigned Provider 04/18/22 01/18/23 Shanda Wilkinson MD [address] [place] [address] [email or web address] Insurance Assigned Provider 04/18/22 02/19/23 documented as of this encounter Additional Source Comments The information contained in this document represents components of the legal health record. It is not the complete legal health record.[facility]
--- OUTSIDE RECORDS SUMMARY | 2025-05-13 19:33 | XMS_ITS | Encounter Summary ---
Author Organization [facility] Address [address] [facility] [address] [place] [address] Phone Care Team Providers Care Bootmaker Name Role Phone Edmund Cope MD Primary Care Provider + Edmund Cope MD Unavailable [phone] Edmund Cope MD Unavailable [phone] Edmund Cope MD Primary Care Provider + Shannon Garcia NP Primary Care Provid er + Regulo Lundberg MD Unavailable + Carey Boyd Primary Care Provider + Natasha Cerrato RN Unavailable Shanda Wilkinson MD Unavailable + Regulo Lundberg MD Unavailable + Shanda Wilkinson MD Unavailable + Shanda Wilkinson MD Unavailable + Elicia Valentin Primary Care Provider [phone] Encounter Details Date Type Department Care Team (Latest Contact Info) Description 01/24/2018 Transcribe Orders Virtual Department [address] [place] [address] Guillermo Villar MD [address] [place] [address] [email or web address] Elbow pain, left (Primary Dx) Social History [...] Description 05/22/2025 10:45 AM EST Office Visit [facility] Department of Orthopaedic Surgery, Foot & Ankle Service [address] [place] [address], 3rd Floor, [address] [place] [address] Guillermo Pineda MD [address] [facility] 2ND [place] [address] [email or web address] documented as of this encounter Visit Diagnoses Diagnosis Elbow pain, left- Primary Pain in joint, upper arm documented in this encounter Care Teams Bootmaker Relationship Specialty Start Date End Date Edmund Cope MD [email or web address] PCP - General Internal Medicine 05/16/17 01/07/20 Edmund Cope MD [email or web address] PCP - General Internal Medicine 01/08/20 02/14/20 Shannon Garcia NP [address] [place] [address] [email or web address] PCP - General Family Medicine 02/15/20 08/12/20 Carey Boyd PA [address] [place] [address] PCP - General Airline Station Agent 08/13/20 04/23/25 Elicia Valentin PA [address] [place] [address] PCP - General Physician Diamond Sorter 04/24/25 Edmund Cope MD [address] [place] [phone] Insurance Assigned Provider 10/14/18 03/24/19 Edmund Cope MD [address] [place] [phone] Insurance Assigned Provider 09/19/19 04/19/20 Regulo Lundberg MD [address] [place] [phone] Insurance Assigned Provider 04/19/20 09/20/20 Natasha Cerrato, FRITZ [address] [place] [address] PHC Fitness/Wellness Director 08/14/20 08/31/20 Shanda Wilkinson MD [address] [place] [phone] Insurance Assigned Provider 09/20/20 11/16/20 Regulo Lundberg MD [address] [place] [address] [email or web address] Insurance Assigned Provider 11/16/20 04/18/22 Shanda Wilkinson MD [address] [place] [address] [email or web address] Insurance Assigned Provider 04/18/22 01/18/23 Shanda Wilkinson MD [address] [place] [address] [email or web address] Insurance Assigned Provider 04/18/22 02/19/23 documented as of this encounter Additional Source Comments The information contained in this document represents components of the legal health record. It is not the complete legal health record.[facility]
== END 2025-05-13 19:27 | disposition home or self-care (01) ==
LOC: HO.MRI 19:26
PROVIDERS: PCP Physician Assistant Medical; Visit Provider Student in an Organized Health Care Education/Training Program
DX: M19.072 Primary osteoarthritis, left ankle and foot (principal)
CPT/HCPCS: 73718; 73721

== ENCOUNTER → 2025-05-13 19:53 | Outpatient (BNV) | payer OTHER, SELFPAY | PROVIDERS: PCP Physician Assistant Medical; Visit Provider Radiology Diagnostic Radiology | DX: M24.172 Other articular cartilage disorders, left ankle (principal); M19.072 Primary osteoarthritis, left ankle and foot; M20.12 Hallux valgus (acquired), left foot | CPT/HCPCS: 73718; 73721 ==

== ENCOUNTER 2025-05-16 09:21 | Outpatient (AMB) | payer OTHER, SELFPAY ==
[2025-05-16 09:24] VITALS: BMI 24.6
--- NOTE | 2025-05-16 09:24 | A.OFFVIS_ITS ---
Vital Signs 05/16/25 09:24 Height 5 ft 5 in Weight 148 lb BMI 24.6 Intake Visit Reasons: MRI review Intake Note: Ivan is a 35 year old female who presents to the office today for an MRI review of her left foot/ankle. Pt denies any changes and is currently still using her ankle brace. Allergies scallops Allergy (Unknown, Verified 05/16/25 09:25) Unknown Gabapentin Allergy (Unknown, Uncoded 05/16/25 09:25) neurologic side effects HPI HPI MRI review: Details: The patient is a 34-year-old female presenting for 1 month follow up evaluation of left ankle sprain. She completed physical therapy. No new ankle sprains or injuries since her last visit. She notes overall improvement in her midfoot and ankle, still having discomfort to the side of her left ankle and now to the 1st and 2nd toe joints. She finds her lace-up ankle brace more conducive to her midfoot pain than the AFO ratio was using previously. History: The patient notes history of her most recent left ankle sprain that occurred the week of 03/04 after stepping off of her horse. She was seen at the emergency room at [facility] and received x-rays which were deemed to be negative for fractures. She was discharged in a cam boot. Patient notes she typically rolls her ankle 1-2 times per week. The patient has undergone multiple imaging studies, including an MRI in 2022, which showed normal findings despite clinical laxity and instability. She states that she has to wear an AFO brace which helped her during her rehab however she has not worn it for a few years. She does not use any ankle support or brace due to them not fitting in her shoes. 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 A tightrope procedure was attempted but failed, leading to a Z lengthening of the fibula with syndesmotic fusion at [facility]. Additionally, the patient sustained a Lisfranc fracture in the same foot during rehabilitation, which was managed with pinning and subsequent hardware removal in 2020. The patient reports persistent pain and weakness in the left big toe joint, exacerbated by activities that require her to push off of her big toe joint, such as lunges and weighted exercises. She attributed to loss of muscle tone and strength under the foot. Last appointment with her previous surgeon Dr. Pineda 02/16/2023 where a repeat MRI showed some concern for medial talar OCD lesion and recommended PT at the time. Surgical History: - 12/2017: Left ankle ORIF with NEOS - 06/2018: Left ankle AMELIE, arthroscopy, syndesmosis tight-rope - 11/20/2019: Left ankle OCD repair with biocartilage (1.25cm x 1.5cm), fibular osteotomy, CP/SPF/Sural nerve decompression, syndesmotic fusion, brostrom repair ATFL/CFL (Arthrex Pushlock [place]), peroneal tendon tenosynovectomy. - 08/25/2020: ORIF Left lisfranc fracture with Dr. 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 - Exercise: Engages in activities such as lunges and weighted exercises, rides horses, and plays tennis three times a week [facility] Medical History Undifferentiated connective tissue disease Ankle sprain Hyperlipidemia Breast lump Triceps tendon rupture Overweight with body mass index (BMI) of 26 to 26.9 in adult Injury of left elbow Annual physical exam Hyperlipidemia with target low density lipoprotein (LDL) cholesterol less than 100 mg/dL Vitamin D deficiency Small fiber neuropathy Fracture of distal end of left fibula Multiple joint pain Postural orthostatic tachycardia syndrome PTSD (post-traumatic stress disorder) Selective immunoglobulin M deficiency Monoclonal gammopathy Channing's thyroiditis Surgical History S/P hardware removal S/P right rotator cuff repair S/P posterior Bankart repair of right shoulder Family History Paternal Grandfather Malignant carcinoid tumor of lung Mother Thyroid nodule Malignant tumor of thyroid gland Social History Household Members: None Housing: Apartment Patient Tobacco Use Status: Former Tobacco user Tobacco use type: Cigarette service: No Current occupational status: employed Cognitive needs: No Hearing needs: No Vision needs: No Review of Systems Const All systems reviewed & are unremarkable except as noted in HPI and below Physical Exam Vital Signs: BMI result Body Mass Index 24.6 Extrem Other: *Bilateral Lower Extremity Focused Exam Vascular: DP/PT 2/4, CFT<3s to digits, TG warm to cool, mild left lateral and anterior ankle edema. No pedal edema. Derm: Mild ecchymosis over the lateral aspect of the ankle, anterior ankle, and dorsal foot. Healed surgical incisions along the medial and lateral ankle. Neuro: Protective sensation grossly intact to bilateral lower extremities. MSK: Left lower extremity: Mild tenderness on palpation of the ATFL over the lateral ankle and the lateral gutter. Moderate tenderness along the peroneal tendons posterior retromalleolar fibula, no longer radiating proximally. No tenderness retromalleolar medial tibia. Ankle inversion 3:1 bilaterally. Ankle dorsiflexion 0 degrees 2/2 rigid block. On weight-bearing, ankle dorsiflexion -5 degrees closed chain. Minimal tenderness on palpation along the 1st tarsometatarsal joint. No tenderness on palpation along the medial aspect and plantar aspect of the 1st metatarsal shaft on push-off stance currently. Left 1st Metatarsal-phalangeal joint dorsiflexion 80 degrees. Tracking hallux valgus deformity with prominent medial eminence. Mild tenderness on Roberto's test of the 2nd Metatarsal-phalangeal joint and to palpation of the plantar sulcus. No pain to the plantar sulcus or Roberto's test of the 1st and 3rd digits. No pain on palpation of the sesamoids. Results Reviewed Results Reviewed: MRI left ankle 05/13/2025 IMPRESSION: There is a 5 x 13 mm full-thickness articular cartilage defects involving the medial shoulder of the talar dome with mild flattening and thinning of the subchondral bone plate and mild reactive marrow signal. Small mildly complex effusion involving the talotibial joint. Surgically fused syndesmosis. Age-indeterminate grade 2 sprain of anterior and posterior talofibular ligaments and grade 1 sprain of the calcaneofibular ligament. Chronic versus acute/subacute on chronic. Moderate osteoarthritis of the first tarsometatarsal joint. MRI left foot 05/13/2025: IMPRESSION: Age-indeterminate first plantar plate abnormality: The central fibrocartilage of the plantar plate complex is thickened and irregular. Age-indeterminate second plantar plate abnormality: The central fibrocartilage of the plantar plate complex is mildly lax and elevated at the base of the second proximal phalanx. There is mildly increased synovial fluid. Hallux valgus deformity. Moderate osteoarthritis of the first tarsometatarsal joint. Borderline increased synovial fluid in the fourth MTP joint. 03/26/2025 X-ray left foot 3 views (AP, MO, Lateral) weight-bearing reviewed which shows ossified bone within the 1st interspace between the 1st metatarsal and the 2nd metatarsal base, with no diastasis with the 2nd metatarsal. First tarsometatarsal joint and 3rd tarsometatarsal joint have severe joint space narrowing. Second tarsometatarsal joint has moderate asymmetric joint space narrowing. Miranda's angle appears within normal limits on lateral view. Bone density is within normal limits. Normal anatomy. No evidence of swelling, foreign body, or calcifications. I personally reviewed the imaging and my findings are listed above. 03/26/2025 X-ray left ankle 3 views (AP, Mortise, Lateral) weight-bearing reviewed which shows varus tilt of the ankle joint, talocrural angle of 74 degrees. Syndesmotic fusion with retained screws/foreign body in the tibia at the level of the syndesmosis 2.5 cm from the ankle joint. No significant tibiotalar joint narrowing. Bone density is within normal limits. I personally reviewed the imaging and my findings are listed above. 03/26/2025 X-ray left calcaneus 3 views (Axial, Lateral) weightbearing reviewed which shows approximately 8 degrees of hindfoot varus. Subtalar joint space within normal limits. I personally reviewed the imaging and my findings are listed above. 03/05/2025 X-ray left ankle 3 views (AP, Mortise, Lateral) reviewed which shows no fractures, dislocations, osteochondral defects. Foreign body/partial screw present in the syndesmotic region of the tibia. Synostosis of the tibia and fibula at the level of the syndesmosis. Anatomic alignment of the tibiotalar joint. Mild joint space narrowing of the calcaneocuboid joint. Bone density is within normal limits. No evidence of swelling, foreign body, or calcifications. I personally reviewed the imaging and my findings are listed above. 03/05/2025 X-ray left foot 3 views (AP, Mortise, Lateral) reviewed which shows no fractures, dislocations, osteochondral defects. There is mild diastasis of the 1st and 2nd metatarsal bases, measuring 1.89 mm from medial cuneiform to the 2nd metatarsal base. Moderate joint space narrowing of the 1st , 2nd, and 3rd tarsometatarsal joints. Mild narrowing of the 1st Metatarsal-phalangeal joint with flattening of the medial eminence and mild cystic changes. First metatarsal IM angle is 11. Tibial sesamoid position is 4. I personally reviewed the imaging and my findings are listed above. Assessment & Plan Assessment & Plan (1) Left ankle sprain: Code(s): S93.402A - Sprain of unspecified ligament of left ankle, initial encounter Category: Medical Qualifiers: Encounter type: initial encounter Involved ligament of ankle: anterior talofibular ligament Qualified Code(s): S93.492A - Sprain of other ligament of left ankle, initial encounter Plan: * Reviewed left ankle MRI with the patient. No peroneal tendon tear visualized. * Recommend continuing physical therapy and use of lace-up ankle brace during high impact activities. * Patient states she will be seeing her orthopedic foot and ankle surgeon in [place] to review her tentative surgical plan ((lateral ankle ligament reconstruction)). She was encouraged to speak to them as she will likely be returning to them in the future for a TAR vs TTC definitive treatment option(s) in the future. * Follow up when ready to discuss surgical plan (2) Arthritis of foot, left: Code(s): M19.072 - Primary osteoarthritis, left ankle and foot Category: Medical Plan: * No further lisfranc diastasis on weight-bearing x-rays. * Discussed that her symptoms for her midfoot and forefoot pain may be related to her Lisfranc joint arthritis versus medial column overload/compensation due to her rigid ankle rocker. * Discussed treatment options including cortisone injection vs regenerative medicine options (PRP, etc.) for her midfoot arthritis.. * She may benefit from a 1st TMT fusion. * We will trial a custom foot orthosis with a first ray cut-out for her 1st TMT arthritis after lateral ankle stabilization. * The patient has hindfoot varus compensation for her ankle valgus. Explained that she is at risk of eventual subtalar joint arthritis, and will likely require a total ankle replacement versus ankle fusion in her future. (3) Ankle ligament laxity: Code(s): M24.273 - Disorder of ligament, unspecified ankle Category: Medical Qualifiers: Laterality: left Qualified Code(s): M24.272 - Disorder of ligament, left ankle Plan: * Recommended eventual lateral ankle ligament reconstruction to decrease how f requently she sprains her ankle. * Due to her history of OCD lesion, she will be planned for an ankle arthroscopy and OCD inspection/possible repair. * Differential diagnosis includes subtalar joint instability. (4) Osteochondral defect of talus: Code(s): M95.8 - Other specified acquired deformities of musculoskeletal system Category: Medical Plan: * Lesion size as per her medical records was 1.25cm x 1.5cm. New MRI: 5 x 13mm, minimal reactive marrow signal. * No further treatment for the OCD planned at this time. Coding Level of Care Code Est Pt Level 4 (25104) Diagnoses Sprain of anterior talofibular ligament of left ankle, initial encounter S93.492A Encounter type: initial encounter Involved ligament of ankle: anterior talofibular ligament Arthritis of foot, left M19.072 Ligamentous laxity of left ankle M24.272 Laterality: left Osteochondral defect of talus M95.8 Time Spent (min) 30
--- OUTSIDE RECORDS SUMMARY | 2025-05-16 10:26 | XMS_ITS | Encounter Summary ---
Author Organization [facility] Address [address] [facility] [address] [place] [address] Phone Care Team Providers Care Service Technician Name Role Phone Shannon Garcia NP Primary Care Provid er Regulo Lundberg MD Unavailable Carey Boyd Primary Care Provider [phone] Natasha Cerrato RN Unavailable Shanda Wilkinson MD Unavailable Regulo Lundberg MD Unavailable Shanda Wilkinson MD Unavailable [phone] Shanda Wilkinson MD Unavailable Elicia Valentin Primary Care Provider [phone] Encounter Details Date Type Department Care Team (Late st Contact Info) Description 07/30/2020 Procedure Pass [facility] Cardiology [address] [facility], [address] [place] [address] Social History Tobacco Use [...] [facility], 3rd Floor, [address] [place] [address] Guillermo Pineda MD [address] [facility] 2ND [place] [address] [email or web address] documented as of this encounter Visit Diagnoses Not on filedocumented in this encounter Care Teams Service Technician Relationship Specialty Start Date End Date Shannon Garcia NP [address] [place] [phone] [email or web address] PCP - General Family Medicine 02/15/20 08/12/20 Carey Boyd PA [address] [place] [phone] PCP - General Bridge Game Director 08/13/20 04/23/25 Elicia Valentin PA [address] [place] [phone] PCP - General Physician Ophthalmic Technician 04/24/25 Regulo Lundberg MD [address] [place] [phone] [email or web address] Insurance Assigned Provider 04/19/20 09/20/20 Natasha Cerrato RN [address] [place] [id number] [email or web address] [facility] Computer Aided Drafter 08/14/20 08/31/20 Shanda Wilkinson MD [address] [place] [address] Insurance Assigned Provider 09/20/20 11/16/20 Regulo Lundberg MD [address] [place] [address] [email or web address] Insurance Assigned Provider 11/16/20 04/18/22 Shanda Wilkinson MD [address] [place] [id number] Insurance Assigned Provider 04/18/22 01/18/23 Shanda Wilkinson MD [address] [place] [address] [email or web address] Insurance Assigned Provider 04/18/22 02/19/23 documented as of this encounter Additional Source Comments The information contained in this document represents components of the legal health record. It is not the complete legal health record.[facility]
--- OUTSIDE RECORDS SUMMARY | 2025-05-16 10:26 | XMS_ITS | Encounter Summary ---
Author Organization [facility] Address [address] [place] [address] Phone Care Team Providers Care Assistant Curator Name Role Phone Regulo Lundberg MD Unavailable Carey Boyd Primary Care Provider [phone] Natasha Cerrato RN Unavailable Shanda Wilkinson MD Unavailable [phone] Regulo Lundberg MD Unavailable [phone] Shanda Wilkinson MD Unavailable [phone] Shanda Wilkinson MD Unavailable [phone] Elicia Valentin Primary Care Provider [phone] Encounter Details Date Type Department Care Team (Late st Contact Info) Description 08/18/2020 Procedure Pass [facility] [address] [facility], [address] [place] [address] Social History Tobacco Use Types [...] Description 05/22/2025 10:45 AM EST Office Visit [facility] Department of Orthopaedic Surgery, Foot & Ankle Service [address] [facility], 3rd Floor, [address] [place] [address] Guillermo Pineda MD [address] [facility] [address] [place] [address] documented as of this encounter Visit Diagnoses Not on filedocumented in this encounter Care Teams Assistant Curator Relationship Specialty Start Date End Date Carey Boyd PA [address] [place] [address] PCP - General Transport Medic 08/13/20 04/23/25 Elicia Valentin PA [address] [place] [phone] PCP - General Physician Mri Supervisor 04/24/25 Regulo Lundberg MD [address] [place] [address] Insurance Assigned Provider 04/19/20 09/20/20 Natasha Cerrato RN [address] [place] [address] [employer] 08/14/20 08/31/20 Shanda Wilkinson MD [address] [place] [address] Insurance Assigned Provider 09/20/20 11/16/20 Regulo Lundberg MD [address] [place] [address] [email or web address] Insurance Assigned Provider 11/16/20 04/18/22 Shanda Wilkinson MD [address] [place] [address] [email or web address] Insurance Assigned Provider 04/18/22 01/18/23 Shanda Wilkinson MD [address] [place] [address] [email or web address] Insurance Assigned Provider 04/18/22 02/19/23 documented as of this encounter Additional Source Comments The information contained in this document represents components of the legal health record. It is not the complete legal health record.[facility]
--- OUTSIDE RECORDS SUMMARY | 2025-05-16 10:26 | XMS_ITS | Encounter Summary ---
Author Organization [facility] Address [address] [facility] [address] [place] [address] Phone Care Team Providers Care Chief Librarian Branch Or Department Name Role Phone Edmund Cope MD Primary Care Provider + Edmund Cope MD Unavailable [phone] Edmund Cope MD Primary Care Provider + Shannon Garcia NP Primary Care Provid er + Regulo Lundberg MD Unavailable + Carey Boyd Primary Care Provider [phone] Natasha Cerrato RN Unavailable Shanda Wilkinson MD Unavailable + Regulo Lundberg MD Unavailable + Shanda Wilkinson MD Unavailable + Shanda Wilkinson MD Unavailable [phone] Elicia Valentin Primary Care Provider [phone] Encounter Details Date Type Department Care Team (Late st Contact Info) Description 11/14/2019 Procedure Pass [facility], Ct Scan - [facility] [address] [place], [place] [id number] Social History Tobacco Use Types Packs/Day Years [...] Orthopaedic Surgery, Foot & Ankle Service [facility], 3rd Floor, [address] [place] [address] Guillermo Pineda MD [address] [facility] 2ND [place] [address] [email or web address] documented as of this encounter Visit Diagnoses Not on filedocumented in this encounter Care Teams Chief Librarian Branch Or Department Relationship Specialty Start Date End Date Edmund Cope MD [email or web address] PCP - General Internal Medicine 05/16/17 01/07/20 Edmund Cope MD [email or web address] PCP - General Internal Medicine 01/08/20 02/14/20 Shannon Garcia NP [address] [place] [address] [email or web address] PCP - General Family Medicine 02/15/20 08/12/20 Carey Boyd PA [address] [place] [address] PCP - General Natural Resources Faculty Member 08/13/20 04/23/25 Elicia Valentin PA [address] [place] [address] PCP - General Physician Military Professional 04/24/25 Edmund Cope MD [address] [place] [address] [email or web address] Insurance Assigned Provider 09/19/19 04/19/20 Regulo Lundberg MD [address] [place] [address] [email or web address] Insurance Assigned Provider 04/19/20 09/20/20 Natasha Cerrato, FRITZ [address] [place] [address] [email or web address] [facility] Assistant Director Of Public Works 08/14/20 08/31/20 Shanda Wilkinson MD [address] [place] [address] Insurance Assigned Provider 09/20/20 11/16/20 Regulo Lundberg MD [address] [place] [address] [email or web address] Insurance Assigned Provider 11/16/20 04/18/22 Shanda Wilkinson MD [address] [place] [address] Insurance Assigned Provider 04/18/22 01/18/23 Shanda Wilkinson MD [address] [place] [address] [email or web address] Insurance Assigned Provider 04/18/22 02/19/23 documented as of this encounter Additional Source Comments The information contained in this document represents components of the legal health record. It is not the complete legal health record.[facility]
--- OUTSIDE RECORDS SUMMARY | 2025-05-16 10:26 | XMS_ITS | Encounter Summary ---
Author Organization [facility] Address [address] [facility] [address] [place] [address] Phone Care Team Providers Care Layboy Tender Name Role Phone Shannon Garcia NP Primary Care Provid er Regulo Lundberg MD Unavailable Carey Boyd Primary Care Provider [phone] Natasha Cerrato RN Unavailable Shanda Wilkinson MD Unavailable Regulo Lundberg MD Unavailable [phone] Shanda Wilkinson MD Unavailable [phone] Shanda Wilkinson MD Unavailable [phone] Elicia Valentin Primary Care Provider [phone] Encounter Details Date Type Department Care Team (Late st Contact Info) Description 05/28/2020 Procedure Pass [facility], [address] [id number] Social History Tobacco Use Types Packs/Day Years [...] Description 05/22/2025 10:45 AM EST Office Visit [facility] Department of Orthopaedic Surgery, Foot & Ankle Service [address] [facility], 3rd Floor, [address] [place] [address] Guillermo Pineda MD [address] [facility] 2ND [place] [address] [email or web address] documented as of this encounter Visit Diagnoses Not on filedocumented in this encounter Care Teams Layboy Tender Relationship Specialty Start Date End Date Shannon Garcia NP [address] [place] [address] [email or web address] PCP - General Family Medicine 02/15/20 08/12/20 Carey Boyd PA [address] [place] [address] PCP - General Ram Press Operator 08/13/20 04/23/25 Elicia Valentin PA [address] [place] [address] PCP - General Physician Party Plan Sales Host/Hostess 04/24/25 Regulo Lundberg MD [address] [place] [address] [email or web address] Insurance Assigned Provider 04/19/20 09/20/20 Natasha Cerrato RN [address] [place] [address] [email or web address] [facility] Truss Puller Helper 08/14/20 08/31/20 Shanda Wilkinson MD [address] [place] [address] Insurance Assigned Provider 09/20/20 11/16/20 Regulo Lundberg MD [address] [place] [address] [email or web address] Insurance Assigned Provider 11/16/20 04/18/22 Shanda Wilkinson MD [address] [place] [address] Insurance Assigned Provider 04/18/22 01/18/23 Shanda Wilkinson MD [address] [place] [address] [email or web address] Insurance Assigned Provider 04/18/22 02/19/23 documented as of this encounter Additional Source Comments The information contained in this document represents components of the legal health record. It is not the complete legal health record.[facility]
--- OUTSIDE RECORDS SUMMARY | 2025-05-16 10:26 | XMS_ITS | Encounter Summary ---
Author Organization [facility] Address [address] [facility] [address] [place] [address] Phone Care Team Providers Care Kindergarten Assistant Name Role Phone Edmund Cope MD Primary Care Provider + Edmund Cope MD Unavailable [phone] Edmund Cope MD Primary Care Provider + Shannon Garcia NP Primary Care Provid er + Regulo Lundberg MD Unavailable + Carey Boyd Primary Care Provider [phone] Natasha Cerrato RN Unavailable Shanda Wilkinson MD Unavailable + Regulo Lundberg MD Unavailable + Shanda Wilkinson MD Unavailable + Shanda Wilkinson MD Unavailable [phone] Elicia Valentin Primary Care Provider [phone] Encounter Details Date Type Department Care Team (Late st Contact Info) Description 11/14/2019 Procedure Pass [facility], Ct Scan - [facility] [address] [place] [address] [place], [place] [phone] Social History Tobacco Use Types Packs/Day Years [...] Description 05/22/2025 10:45 AM EST Office Visit [facility] Department of Orthopaedic Surgery, Foot & Ankle Service [address] [facility], 3rd Floor, [address] [place] [address] Guillermo Pineda MD [address] [facility] 2ND [place] [address] [email or web address] documented as of this encounter Visit Diagnoses Not on filedocumented in this encounter Care Teams Kindergarten Assistant Relationship Specialty Start Date End Date Edmund Cope MD [email or web address] PCP - General Internal Medicine 05/16/17 01/07/20 Edmund Cope MD [email or web address] PCP - General Internal Medicine 01/08/20 02/14/20 Shannon Garcia NP [address] [place] [address] [email or web address] PCP - General Family Medicine 02/15/20 08/12/20 Carey Boyd PA [address] [place] [address] PCP - General Oracle Database Consultant 08/13/20 04/23/25 Elicia Valentin PA [address] [place] [address] PCP - General Physician Hrbp 04/24/25 Edmund Cope MD [address] [place] [address] [email or web address] Insurance Assigned Provider 09/19/19 04/19/20 Regulo Lundberg MD [address] [place] [address] [email or web address] Insurance Assigned Provider 04/19/20 09/20/20 Natasha Cerrato, FRITZ [address] [place] [address] [email or web address] [facility] Fondant Machine Operator 08/14/20 08/31/20 Shanda Wilkinson MD [address] [place] [address] Insurance Assigned Provider 09/20/20 11/16/20 Regulo Lundberg MD [address] [place] [address] [email or web address] Insurance Assigned Provider 11/16/20 04/18/22 Shanda Wilkinson MD [address] [place] [address] Insurance Assigned Provider 04/18/22 01/18/23 Shanda Wilkinson MD [address] [place] [address] [email or web address] Insurance Assigned Provider 04/18/22 02/19/23 documented as of this encounter Additional Source Comments The information contained in this document represents components of the legal health record. It is not the complete legal health record.[facility]
--- OUTSIDE RECORDS SUMMARY | 2025-05-16 10:26 | XMS_ITS | Encounter Summary ---
Author Organization [facility] Address [address] [employer] [facility] [address] [place] [address] Phone Care Team Providers Care Credit Collections Rep Name Role Phone Regulo Lundberg MD Unavailable [phone] Carey Boyd Primary Care Provider [phone] Natasha Cerrato RN Unavailable Shanda Wilkinson MD Unavailable Regulo Lundberg MD Unavailable Shanda Wilkinson MD Unavailable [phone] Shanda Wilkinson MD Unavailable Elicia Valentin Primary Care Provider [phone] Encounter Details Date Type Department Care Team (Late st Contact Info) Description 08/25/2020 Procedure Pass [facility] [address] [place] [address] Social History Tobacco Use Types [...] Description 05/22/2025 10:45 AM EST Office Visit [facility] Department of Orthopaedic Surgery, Foot & Ankle Service 55 [facility], 3rd Floor, [address] [place] [address] Guillermo Pineda MD [address] [facility] 2ND [place] [address] documented as of this encounter Visit Diagnoses Not on filedocumented in this encounter Care Teams Credit Collections Rep Relationship Specialty Start Date End Date Carey Boyd PA [address] [place] [address] PCP - General Commercial Installer 08/13/20 04/23/25 Elicia Valentin PA [address] [place] [address] PCP - General Physician Adzing And Boring Machine Operator 04/24/25 Regulo Lundberg MD [address] [place] [address] Insurance Assigned Provider 04/19/20 09/20/20 Natasha Cerrato, FRITZ [address] [place] [address] PHCM Safety Admin Assistant 08/14/20 08/31/20 Shanda Wilkinson MD [address] [place] [address] Insurance Assigned Provider 09/20/20 11/16/20 Regulo Lundberg MD [address] [place] [address] [email or web address] Insurance Assigned Provider 11/16/20 04/18/22 Shanda Wilkinson MD [address] [place] [address] [email or web address] Insurance Assigned Provider 04/18/22 01/18/23 Shanda Wilkinson MD [address] [place] [address] [email or web address] Insurance Assigned Provider 04/18/22 02/19/23 documented as of this encounter Additional Source Comments The information contained in this document represents components of the legal health record. It is not the complete legal health record.[facility]
--- OUTSIDE RECORDS SUMMARY | 2025-05-16 10:26 | XMS_ITS | Encounter Summary ---
Author Organization [facility] Address [address] [facility] [address] [place] [address] Phone Care Team Providers Care Synthetic Chemist Name Role Phone Edmund Cope MD Primary [...] Unavailable + Elicia Valentin Primary Care Provider [phone] Reason for Referral * MRI/CAT Scan - Closed Specialty Diagnoses / Procedures Referred By Contac t Referred To Contact Radiology Diagnoses Multiple joint pain Arthralgia, unspecified joint Procedures MRI Hand (Right) Clay Cavazos MD Phone: tel: fax: Referral ID Status Reason Start Date Expiration Date Visits Re quested Visits Authorized [id number] Closed 01/21/2020 07/19/2020 1 1 * MRI/CAT Scan - Closed Specialty Diagnoses / Procedures Referred By Contac t Referred To Contact Radiology Diagnoses Multiple joint pain Arthralgia, unspecified joint Procedures MRI Hand (Left) Clay Cavazos MD Phone: tel: fax: Referral ID Status Reason Start Date Expiration Date Visits Re quested Visits Authorized [id number] Closed 01/03/2020 03/06/2020 1 1 Encounter Details Date Type Department Care Team (Latest Contact Info) Description 01/04/2020 Transcribe Orders Virtual Department [address] [place] [address] Clay Cavazos MD [address] [place] [address] Multiple joint pain (Primary Dx); Arthralgia, unspecified [...] of Orthopaedic Surgery, Foot & Ankle Service [address] [place] [address] Floor, [address] [place] [address] Guillermo Pineda MD [address] [facility] 2ND [place] [address] [email or web address] documented as of this encounter Results * MRI HAND WITH AND WITHOUT CONTRAST (RIGHT) (01/25/2020 10:12 PM EDT) Anatomical Region Laterality Modality Hand Right Magnetic Resonan ce 01/26/2020 8:15 AM EDT Impressions 01/26/2020 8:20 AM EDT Unremarkable MRI appearance of the hand. No indications of tenosynovitis, arthritis or other explanation of pain. POS [id number] Narrative 01/26/2020 8:20 AM EDT TECHNIQUE: 1.5 [...] tenosynovitis,arthritis or other explanation of pain. POS [id number] us Clay Cavazos MD IMG MR EXTREMITY [...] joint documented in this encounter Care Teams Synthetic Chemist Relationship Specialty Start Date End Date Edmund Cope MD [email or web address] PCP - General Internal Medicine 05/16/17 01/07/20 Edmund Cope MD [email or web address] PCP - General Internal Medicine 01/08/20 02/14/20 Shannon Garcia NP [address] [place] [address] [email or web address] PCP - General Family Medicine 02/15/20 08/12/20 Carey Boyd PA [address] [place] [address] PCP - General Die Set Up Worker 08/13/20 04/23/25 Elicia Valentin PA [address] [place] [address] PCP - General Physician Quality Lab Technician 04/24/25 Edmund Cope MD [address] [place] [address] [email or web address] Insurance Assigned Provider 09/19/19 04/19/20 Regulo Lundberg MD [address] [place] [address] [email or web address] Insurance Assigned Provider 04/19/20 09/20/20 Natasha Cerrato, RN [address] [place] [address] [facility] Labor Economist 08/14/20 08/31/20 Shanda Wilkinson MD [address] [place] [address] Insurance Assigned Provider 09/20/20 11/16/20 Regulo Lundberg MD [address] [place] [address] [email or web address] Insurance Assigned Provider 11/16/20 04/18/22 Shanda Wilkinson MD [address] [place] [address] Insurance Assigned Provider 04/18/22 01/18/23 Shanda Wilkinson MD [address] [place] [address] [email or web address] Insurance Assigned Provider 04/18/22 02/19/23 documented as of this encounter Additional Source Comments The information contained in this document represents components of the legal health record. It is not the complete legal health record.[facility]
--- OUTSIDE RECORDS SUMMARY | 2025-05-16 10:26 | XMS_ITS | Encounter Summary ---
Author Organization [facility] Address [address] [employer] [facility] [address] [place] [address] Phone Care Team Providers Care Gas Operations Superintendent Name Role Phone Carey Boyd Primary Care Provider [phone] Regulo Lundberg MD Unavailable Shanda Wilkinson MD Unavailable [phone] Shanda Wilkinson MD Unavailable [phone] Elicia Valentin Primary Care Provider [phone] Encounter Details Date Type Department Care Team (Late st Contact Info) Description 10/29/2021 Procedure Pass [facility], [facility] [address] [place] [address] Social History Tobacco Use Types Packs/Day Years [...] Description 05/22/2025 10:45 AM EST Office Visit [facility] Department of Orthopaedic Surgery, Foot & Ankle Service [address] [facility], 3rd Floor, [address] [place] [address] Guillermo Pineda MD [address] [place] [address]ND [place] [address] [email or web address] documented as of this encounter Visit Diagnoses Not on filedocumented in this encounter Care Teams Gas Operations Superintendent Relationship Specialty Start Date End Date Carey Boyd PA [address] [place] [address] PCP - General Dye Box Operator 08/13/20 04/23/25 Elicia Valentin PA [address] [place] [address] PCP - General Physician Clinical Neuropsychologist 04/24/25 Regulo Lundberg MD [address] [place] [address] [email or web address] Insurance Assigned Provider 11/16/20 04/18/22 Shanda Wilkinson MD [address] [place] [address] [email or web address] Insurance Assigned Provider 04/18/22 01/18/23 Shanda Wilkinson MD [address] [place] [address] [email or web address] Insurance Assigned Provider 04/18/22 02/19/23 documented as of this encounter Additional Source Comments The information contained in this document represents components of the legal health record. It is not the complete legal health record.[facility]
--- OUTSIDE RECORDS SUMMARY | 2025-05-16 10:26 | XMS_ITS | Encounter Summary ---
Author Organization [facility] Address [address] [facility] [address] [place] [address] Phone Care Team Providers Care Bobbin Doffer Name Role Phone Edmund Cope MD Primary Care Provider + Edmund Cope MD Unavailable [phone] Edmund Cope MD Primary Care Provider + Shannon Garcia NP Primary Care Provid er + Regulo Lundberg MD Unavailable + Carey Boyd Primary Care Provider [phone] Natasha Cerrato RN Unavailable Shanda Wilkinson MD Unavailable + Regulo Lundberg MD Unavailable + Shanda Wilkinson MD Unavailable + Shanda Wilkinson MD Unavailable [phone] Elicia Valentin Primary Care Provider [phone] Encounter Details Date Type Department Care Team (Latest Contact Info) Description 10/25/2019 Transcribe Orders [facility] [address] [place] [address] Dalton Leone, [address] [place] [address] [email or web address] Screening for unspecified condition (Primary Dx) Social [...] 05/22/2025 10:45 AM EST Office Visit [facility] Department of Orthopaedic Surgery, Foot & Ankle Service [address] [place] [address], 3rd Floor, [address] [place] [address] Guillermo Pineda MD [address] [facility] 2ND [place] [address] [email or web address] documented as of this encounter Visit Diagnoses Diagnosis Screening for unspecified condition- Primary documented in this encounter Care Teams Bobbin Doffer Relationship Specialty Start Date End Date Edmund Cope MD [email or web address] PCP - General Internal Medicine 05/16/17 01/07/20 Edmund Cope MD [email or web address] PCP - General Internal Medicine 01/08/20 02/14/20 Shannon Garcia NP [address] [place] [address] [email or web address] PCP - General Family Medicine 02/15/20 08/12/20 Carey Boyd PA [address] [place] [address] PCP - General Medicare Coordinator 08/13/20 04/23/25 Elicia Valentin PA [address] [place] [address] PCP - General Physician Merchandise Executive 04/24/25 Edmund Cope MD [address] [place] [address] [email or web address] Insurance Assigned Provider 09/19/19 04/19/20 Regulo Lundberg MD [address] [place] [address] Insurance Assigned Provider 04/19/20 09/20/20 Natasha Cerrato, FRITZ [address] [place] [address] PHCM Train Controller 08/14/20 08/31/20 Shanda Wilkinson MD [address] [place] [address] [email or web address] Insurance Assigned Provider 09/20/20 11/16/20 Regulo Lundberg MD [address] [place] [address] 279[address] Insurance Assigned Provider 11/16/20 04/18/22 Shanda Wilkinson MD [address] [place] [address] [email or web address] Insurance Assigned Provider 04/18/22 01/18/23 Shanda Wilkinson MD [address] [place] [address] [email or web address] Insurance Assigned Provider 04/18/22 02/19/23 documented as of this encounter Additional Source Comments The information contained in this document represents components of the legal health record. It is not the complete legal health record.[facility]
--- OUTSIDE RECORDS SUMMARY | 2025-05-16 10:26 | XMS_ITS | Encounter Summary ---
Author Organization [facility] Address [address] [facility] [address] [place] [address] Phone Care Team Providers Care Station Agent Name Role Phone Edmund Cope MD Primary Care Provider + Edmund Cope MD Unavailable [phone] Edmund Cope MD Primary Care Provider + Shannon Garcia NP Primary Care Provid er + Regulo Lundberg MD Unavailable + Carey Boyd Primary Care Provider [phone] Natasha Cerrato RN Unavailable Shanda Wilkinson MD Unavailable + Regulo Lundberg MD Unavailable + Shanda Wilkinson MD Unavailable + Shanda Wilkinson MD Unavailable + Elicia Valentin Primary Care Provider [phone] Encounter Details Date Type Department Care Team (Late st Contact Info) Description 11/20/2019 Procedure Pass [facility] [address] [place] [address] Social History Tobacco Use Types [...] 10:45 AM EST Office Visit [facility] Department of Orthopaedic Surgery, Foot & Ankle Service [address] [facility], 3rd Floor, [address] [place] [address] Guillermo Pineda MD [address] [facility] 2ND [place] [address] [email or web address] documented as of this encounter Visit Diagnoses Not on filedocumented in this encounter Care Teams Station Agent Relationship Specialty Start Date End Date Edmund Cope MD [email or web address] PCP - General Internal Medicine 05/16/17 01/07/20 Edmund Cope MD [email or web address] PCP - General Internal Medicine 01/08/20 02/14/20 Shannon Garcia NP [address] [place] [address] [email or web address] PCP - General Family Medicine 02/15/20 08/12/20 Carey Boyd PA [address] [place] [address] PCP - General Tail End Rider 08/13/20 04/23/25 Elicia Valentin PA [address] [place] [address] PCP - General Physician Repair Cameraman 04/24/25 Edmund Cope MD [address] [place] [address] [email or web address] Insurance Assigned Provider 09/19/19 04/19/20 Regulo Lundberg MD [address] [place] [address] [email or web address] Insurance Assigned Provider 04/19/20 09/20/20 Natasha Cerrato RN [address] [place] [address] [email or web address] [facility] Improvement Manager 08/14/20 08/31/20 Shanda Wilkinson MD [address] [place] [address] Insurance Assigned Provider 09/20/20 11/16/20 Regulo Lundberg MD [address] [place] [address] [email or web address] Insurance Assigned Provider 11/16/20 04/18/22 Shanda Wilkinson MD [address] [place] [address] Insurance Assigned Provider 04/18/22 01/18/23 Shanda Wilkinson MD [address] [place] [address] [email or web address] Insurance Assigned Provider 04/18/22 02/19/23 documented as of this encounter Additional Source Comments The information contained in this document represents components of the legal health record. It is not the complete legal health record.[facility]
--- OUTSIDE RECORDS SUMMARY | 2025-05-16 10:26 | XMS_ITS | Encounter Summary ---
Author Organization [facility] Address [address] [facility] [address] [place] [address] Phone Care Team Providers Care Interior Decorator Paperhanging Name Role Phone Edmund Cope MD Primary [...] Unavailable + Elicia Valentin Primary Care Provider [phone] Reason for Referral * Physical Therapy (Routine) - Closed Specialty Diagnoses / Procedures Referred By Contac t Referred To Contact Physical Therapy Diagnoses Encounter for rehabilitation Left Ankle Procedures Evaluate & Treat Guillermo Pineda MD Phone: tel: fax: [email or web address] [facility] [address] [place] [address] Phone: tel: Referral ID Status Reason Start Date Expiration Date Visits Re quested Visits Authorized [id number] Closed 12/06/2019 06/12/2020 20 20 Encounter Details Date Type Department Care Team (Latest Contact Info) Description 12/06/2019 Transcribe Orders [facility] [address] [place] [address] Guillermo Pineda MD [address] [facility] [address] [place] [address] [email or web address] Encounter for rehabilitation (Primary Dx) Social [...] Orthopaedic Surgery, Foot & Ankle Service [address] [facility], 3rd Floor, [address] [place] [address] Guillermo Pineda MD [address] [facility] [address] [place] [address] [email or web address] Scheduled Referrals Name Type Priority Associated Diagnoses Orde r Schedule Ambulatory referral to [facility] Physical Therapy Outpatient Referral Routine Encounter for rehabilitation Ordered: 12/06/2019 documented as of this encounter Visit Diagnoses Diagnosis Encounter for rehabilitation- Primary documented in this encounter Care Teams Interior Decorator Paperhanging Relationship Specialty Start Date End Date Edmund Cope MD [email or web address] PCP - General Internal Medicine 05/16/17 01/07/20 Edmund Cope MD [email or web address] PCP - General Internal Medicine 01/08/20 02/14/20 Shannon Garcia NP [address] [place] [address] [email or web address] PCP - General Family Medicine 02/15/20 08/12/20 Carey Boyd PA [address] [place] [address] PCP - General Planning Specialist 08/13/20 04/23/25 Elicia Valentin PA [address] [place] [address] PCP - General Physician Sheet Metal Superintendent 04/24/25 Edmund Cope MD [address] [place] [address] [email or web address] Insurance Assigned Provider 09/19/19 04/19/20 Regulo Lundberg MD [address] [place] [address] [email or web address] Insurance Assigned Provider 04/19/20 09/20/20 Natasha Cerrato, RN [address] [place] [address] [facility] Senior Wind Turbine Technician 08/14/20 08/31/20 Shanda Wilkinson MD [address] [place] [address] Insurance Assigned Provider 09/20/20 11/16/20 Regulo Lundberg MD [address] [place] [address] Insurance Assigned Provider 11/16/20 04/18/22 Shanda Wilkinson MD [address] [place] [address] Insurance Assigned Provider 04/18/22 01/18/23 Shanda Wilkinson MD [address] [place] [address] [email or web address] Insurance Assigned Provider 04/18/22 02/19/23 documented as of this encounter Additional Source Comments The information contained in this document represents components of the legal health record. It is not the complete legal health record.[facility]
--- OUTSIDE RECORDS SUMMARY | 2025-05-16 10:27 | XMS_ITS | Encounter Summary ---
Author Organization [facility] Address [address] [facility] [address] [place] [address] Phone Care Team Providers Care Shuttle Car Operator Name Role Phone Edmund Cope MD Unavailable [phone] Shannon Garcia NP Primary Care Provid er Regulo Lundberg MD Unavailable Carey Boyd Primary Care Provider [phone] Natasha Cerrato RN Unavailable Shanda Wilkinson MD Unavailable Regulo Lundberg MD Unavailable Shanda Wilkinson MD Unavailable Shanda Wilkinson MD Unavailable [phone] Elicia Valentin Primary Care Provider Reason for Referral * Outpatient Procedure - Closed Specialty Diagnoses / Procedures Referred By Meche t Referred To Contact Radiology Diagnoses Nausea Vomiting without nausea, intractability of vomiting not specified, unspecified vomiting type Abnormal weight loss Procedures NM Gastric Emptying Moise Gomez MD Phone: tel: fax: [email or web address] Referral ID Status Reason Start Date Expiration Date Visits Re quested Visits Authorized [id number] Closed 03/11/2020 03/11/2021 1 1 Encounter Details Date Type Department Care Team (Latest Contact Info) Description 03/11/2020 Transcribe Orders Virtual Department 30 [place] [address] Moise Gomez MD [address] [address] [email or web address] Nausea (Primary Dx); Vomiting without [...] 05/22/2025 10:45 AM EST Office Visit [facility] Department of Orthopaedic Surgery, Foot & Ankle Service [address] [place] [address], 3rd Floor, [address] [place] [address] Guillermo Pineda MD [address] [facility] 2ND [place] [address] [email or web address] documented as of this encounter Results * [...] activity is still present in the stomach (-14%) At two hours 45% of activity is still present in the stomach (kehddr36-37%) At four hours is 2.5% of activity is still present in the stomach (normal0-10%) IMPRESSION: Normal gastric emptying. POS - [id number] Moise Gomez MD [facility] Final Result documented in this encounter Visit Diagnoses Diagnosis Nausea- Primary Nausea alone Vomiting without nausea, intractability of vomiting not specified, unspecified vomiting type Abnormal weight loss Loss of weight Nausea Nausea alone Vomiting without nausea, intractability of vomiting not specified, unspecified vomiting type Abnormal weight loss Loss of weight documented in this encounter Care Teams Shuttle Car Operator Relationship Specialty Start Date End Date Shannon Garcia NP [address] [place] [address] [email or web address] PCP - General Family Medicine 02/15/20 08/12/20 Carey Boyd PA [address] [place] [address] PCP - General Dough Sheeter 08/13/20 04/23/25 Elicia Valentin PA [address] [place] [address] PCP - General Physician Car Designer 04/24/25 Edmund Cope MD [address] [place] [address] [email or web address] Insurance Assigned Provider 09/19/19 04/19/20 Regulo Lundberg MD [address] [place] [address] [email or web address] Insurance Assigned Provider 04/19/20 09/20/20 Natasha Cerrato, FRITZ [address] [place] [address] [email or web address] [facility] Teaching Young 08/14/20 08/31/20 Shanda Wilkinson MD [address] [place] [address] Insurance Assigned Provider 09/20/20 11/16/20 Regulo Lundberg MD [address] [place] [address] [email or web address] Insurance Assigned Provider 11/16/20 04/18/22 Shanda Wilkinson MD [address] [place] [address] [email or web address] Insurance Assigned Provider 04/18/22 01/18/23 Shanda Wilkinson MD [address] [place] [address] [email or web address] Insurance Assigned Provider 04/18/22 02/19/23 documented as of this encounter Additional Source Comments The information contained in this document represents components of the legal health record. It is not the complete legal health record.[facility]
--- OUTSIDE RECORDS SUMMARY | 2025-05-16 10:27 | XMS_ITS | Encounter Summary ---
Author Organization [facility] Address [address] [facility] [address] [place] [address] Phone Care Team Providers Care Mixer And Scaler Name Role Phone Regulo Lundberg MD Unavailable [phone] Carey Boyd Primary Care Provider [phone] Shanda Wilkinson MD Unavailable Regulo Lundberg MD Unavailable [phone] Shanda Wilkinson MD Unavailable [phone] Shanda Wilkinson MD Unavailable Elicia Valentin Primary Care Provider [phone] Reason for Referral * Physical Therapy (Urgent) - Closed Specialty Diagnoses / Procedures Referred By Meche t Referred To Contact Physical Therapy Diagnoses Encounter for rehabilitation Left Ankle Procedures Evalaute & Treat Guillermo Pineda MD Phone: tel: fax: mailto:[email or web address] [address] [place] [address] Phone: tel: Referral ID Status Reason Start Date Expiration Date Visits Re quested Visits Authorized [id number] Closed 09/08/2020 12/04/2020 17 17 Encounter Details Date Type Department Care Team (Latest Contact Info) Description 09/08/2020 Transcribe Orders [facility] 4 [place] [address] Guillermo Pineda MD [address] [address] [email or web address] Encounter for rehabilitation (Primary Dx) Social [...] Description 05/22/2025 10:45 AM EST Office Visit [facility] Department of Orthopaedic Surgery, Foot & Ankle Service [address] [facility], 3rd Floor, [address] [place] [address] Guillermo Pineda MD [address] [address] [email or web address] Scheduled Referrals Name Type Priority Associated Diagnoses Orde r Schedule Ambulatory referral to [facility] Physical Therapy Outpatient Referral Routine Encounter for rehabilitation Ordered: 09/08/2020 documented as of this encounter Visit Diagnoses Diagnosis Encounter for rehabilitation- Primary documented in this encounter Care Teams Mixer And Scaler Relationship Specialty Start Date End Date Carey Boyd PA [address] [place] [address] PCP - General Physician Intensivist 08/13/20 04/23/25 Elicia Valentin PA [address] [place] [address] PCP - General Physician Manager Wellness 04/24/25 Regulo Lundberg MD [address] [place] [address] [email or web address] Insurance Assigned Provider 04/19/20 09/20/20 Shanda Wilkinson MD [address] [place] [address] Insurance Assigned Provider 09/20/20 11/16/20 Regulo Lundberg MD [address] [place] [address] [email or web address] Insurance Assigned Provider 11/16/20 04/18/22 Shanda Wilkinson MD [address] [place] [address] Insurance Assigned Provider 04/18/22 01/18/23 Shanda Wilkinson MD [address] [place] [address] Insurance Assigned Provider 04/18/22 02/19/23 documented as of this encounter Additional Source Comments The information contained in this document represents components of the legal health record. It is not the complete legal health record.[facility]
--- OUTSIDE RECORDS SUMMARY | 2025-05-16 10:27 | XMS_ITS | Encounter Summary ---
Author Organization [facility] Address [address] [employer] [facility] [address] [place] [address] Phone Care Team Providers Care Drug Coordinator Name Role Phone Edmund Cope MD Unavailable [phone] Shannon Garcia NP Primary Care Provid er Regulo Lundberg MD Unavailable [phone] Carey Boyd Primary Care Provider [phone] Natasha Cerrato RN Unavailable Shanda Wilkinson MD Unavailable Regulo Lundberg MD Unavailable Shanda Wilkinson MD Unavailable Shanda Wilkinson MD Unavailable Elicia Valentin Primary Care Provider [phone] Encounter Details Date Type Department Care Team (Late st Contact Info) Description 02/20/2020 Procedure Pass [facility], Ct Scan - [facility] [address] [place], [place] [id number] Social History Tobacco Use Types Packs/Day Years [...] Description 05/22/2025 10:45 AM EST Office Visit [facility] Department of Orthopaedic Surgery, Foot & Ankle Service [address] [facility] [address], 3rd Floor, [address] [place] [address] Guillermo Pineda MD [address] [facility] 2ND [place] [address] [email or web address] documented as of this encounter Visit Diagnoses Not on filedocumented in this encounter Care Teams Drug Coordinator Relationship Specialty Start Date End Date Shannon Garcia NP [address] [place] [address] [email or web address] PCP - General Family Medicine 02/15/20 08/12/20 Carey Boyd PA [address] [place] [address] PCP - General Dental Associate 08/13/20 04/23/25 Elicia Valentin PA [address] [place] [address] PCP - General Physician Clinical Nurse 04/24/25 Edmund Cope MD [address] [place] [address] [email or web address] Insurance Assigned Provider 09/19/19 04/19/20 Regulo Lundberg MD [address] [place] [address] [email or web address] Insurance Assigned Provider 04/19/20 09/20/20 Natasha Cerrato, RN [address] [place] [address] [email or web address] [facility] Outsole Handler 08/14/20 08/31/20 Shanda Wilkinson MD [address] [place] [address] Insurance Assigned Provider 09/20/20 11/16/20 Regulo Lundberg MD [address] [place] [address] [email or web address] Insurance Assigned Provider 11/16/20 04/18/22 Shanda Wilkinson MD [address] [place] [address] Insurance Assigned Provider 04/18/22 01/18/23 Shanda Wilkinson MD [address] [place] [phone] Insurance Assigned Provider 04/18/22 02/19/23 documented as of this encounter Additional Source Comments The information contained in this document represents components of the legal health record. It is not the complete legal health record.[facility]
--- OUTSIDE RECORDS SUMMARY | 2025-05-16 10:27 | XMS_ITS | Encounter Summary ---
Author Organization [facility] Address [address] [facility] [address] [place] [address] Phone Care Team Providers Care Frame Tender Name Role Phone Carey Boyd Primary Care Provider [phone] Regulo Lundberg MD Unavailable Shanda Wilkinson MD Unavailable Shanda Wilkinson MD Unavailable Elicia Valentin Primary Care Provider [phone] Encounter Details Date Type Department Care Team (Late st Contact Info) Description 12/08/2021 Procedure Pass [facility] Interventional X-ray Imaging, [place] [address] [place], [place] [phone] Social History Tobacco Use Types Packs/Day Years [...] EDT Sexual Orientation Lesbian or Mary 01/21/2023 5 :33 PM EDT documented as of this encounter Plan of Treatment Upcoming Encounters Date Type Department Care Team (Late st Contact Info) Description 05/22/2025 10:45 AM EST Office Visit [facility] Department of Orthopaedic Surgery, Foot & Ankle Service [address] [facility], 3rd Floor, [address] [place] [address] Guillermo Pineda MD [address] [facility] 2ND [place] [address] [email or web address] documented as of this encounter Visit Diagnoses Not on filedocumented in this encounter Care Teams Frame Tender Relationship Specialty Start Date End Date Carey Boyd PA [address] [place] [address] PCP - General Polymerization Engineer 08/13/20 04/23/25 Elicia Valentin PA [address] [place] [address] PCP - General Physician Security Technician 04/24/25 Regulo Lundberg MD [address] [place] [address] [email or web address] Insurance Assigned Provider 11/16/20 04/18/22 Shanda Wilkinson MD [address] [place] [address] [email or web address] Insurance Assigned Provider 04/18/22 01/18/23 Shanda Wilkinson MD [address] [place] [address] [email or web address] Insurance Assigned Provider 04/18/22 02/19/23 documented as of this encounter Additional Source Comments The information contained in this document represents components of the legal health record. It is not the complete legal health record.[facility]
--- OUTSIDE RECORDS SUMMARY | 2025-05-16 10:27 | XMS_ITS | Clinical Summary ---
Author Organization [facility] Address [address] [facility] [address] [place] [address] Phone Care Team Providers Care Milled Rice Broker Name Role Phone Elicia Valentin Primary Care Provider [phone] Allergies Active Allergy Reactions Criticality Noted Date [...] Description 05/22/2025 10:45 AM EST Office Visit [facility] Department of Orthopaedic Surgery, Foot & Ankle Service [address] [facility], 3rd Floor, [address] [place] [address] Guillermo Pineda MD [address] [facility] 2ND [place] [address] [email or web address] Health Maintenance Due Date Last Done Comments [...] this topic Medical Devices Implanted Type Area Vp Of Marketing Device Identifier Shelf Expiration Date Model / Serial / Lot [place] Suture 2 2.3mm 2strand Force Fiber Iconix Intellibraid -Order In Multiples Of 5 - [id number] Implanted:Qty: 3 on 07/07/2017 by Vernon Moses DO at [facility] Right: Shoulder [employer] 11/11/2018 [id number] / / [id number] Screw Bone 3.5x14mm Cortex Self Tapping Fully Threaded Hex Head Ss - [id number] Implanted:Qty: 1 on 11/20/2019 by Guillermo Pineda MD at [facility] Left: Ankle SYNTHES 204.814 / / AUTO#3 LOAD #1 Bone Plate 141x3.5mm 12 Hole Tubular One Third With Collar Lcp Ss - [id number] Implanted:Qty: 1 on 11/20/2019 by Guillermo Pineda MD at [facility] Left: Ankle SYNTHES 241.421 / / AUTO#3 LOAD #1 Screw Bone 2.7x18mm Cortical Self Tapping Fully Threaded Hex Head Ss Bx/1ea - [id number] Implanted:Qty: 1 on 11/20/2019 by Guillermo Pineda MD at [facility] Left: Ankle SYNTHES 202.818 / / AUTO#3 LOAD #1 Screw Bone 2.7x20mm Cortical Self Tapping Fully Threaded Hex Head Ss - [id number] Implanted:Qty: 1 on 11/20/2019 by Guillermo Pineda MD at [facility] Left: Ankle SYNTHES 202.820 / / AUTO#3 LOAD #1 Screw Bone 12x3.5mm Compression Ss Locking Self Tapping Full Thread T15 Stardrive Recess - [id number] Implanted:Qty: 1 on 11/20/2019 by Guillermo Pineda MD at [facility] Left: Ankle SYNTHES 212.102 / / AUTO#3 LOAD #1 Screw Bone 3.5x12mm Cortex Self Tapping Fully Threaded Hex Head Ss - [id number] Implanted:Qty: 2 on 11/20/2019 by Guillermo Pineda MD at [facility] Left: Ankle SYNTHES 204.812 / / AUTO#3 LOAD #1 Screw Bone 3.5x45mm Cortex Self Tapping Fully Threaded Hex Head Ss - [id number] Implanted:Qty: 1 on 11/20/2019 by Guillermo Pineda MD at [facility] Left: Ankle SYNTHES 204.845 / / AUTO#3 LOAD #1 Screw Bone 3.5x50mm Cortex Ss Self Tapping Hexagonal Socket - [id number] Implanted:Qty: 2 on 11/20/2019 by Guillermo Pineda MD at [facility] Left: Ankle SYNTHES 204.850 / / AUTO#3 LOAD #1 Washer Bone 7.0mm Sm Screw Cannulated Ss - Ssterilizer 4, Load 3: Sterilized 2020 Implanted:Qty: 2 on 08/25/2020 by Guillermo Pineda MD at [facility] Left: Foot SYNTHES 219.98 / STERILIZER 4, LOAD 3: STERILIZED 2020 / Screw Bone 30x3.5mm Cannulated Ss Full Thread Hexagonal Socket Flat Head - Discontinued Per Supplier - Ssterilizer 4, Load 3: Sterilized 2020 Implanted:Qty: 1 on 08/25/2020 by Guillermo Pineda MD at [facility] Left: Foot SYNTHES 205.230 / STERILIZER 4, LOAD 3: STERILIZED 2020 / [place] Suture 4.5mm Arthroscopy Reelx Stt Peek Stainless Steel Core Knotless Sharp Tip Expandable Sterile Bx/5ea - [id number] Implanted:Qty: 1 on 07/07/2017 by Vernon Moses DO at [facility] Right: Shoulder [employer] 05/24/2019 [id number] / / [id number] Graft Bone 1.00ml Biocartilage Synthetic Matrix [place] Extracellular Filler Syringe - [id number] Implanted:Qty: 1 on 11/20/2019 by Guillermo Pineda MD at [facility] Left: Ankle [employer] [place] 04/11/2024 [id number] / [id number] / [place] Suture 2.9mmx12.5 Pushlock Biocomposite Swivelock Vented Bx/5ea - Must Be Ordered In Multiples Of 5's - [id number] Implanted:Qty: 2 on 11/20/2019 by Guillermo Pineda MD at [facility] Left: Ankle [employer] 09/10/2021 [id number]-[id number] / / [id number] Kit 1.5cc Graft Bone Augment Synthetic Bioabsorbable - [id number] Implanted:Qty: 1 on 11/20/2019 by Guillermo Pineda MD at [facility] Right: Ankle [employer] 05/12/2021 [id number] / / [id number] Guidewire Pipo 1.22a570ch Non Threaded - Ssterilizer4, Load3: Sterilized Implanted:Qty: 2 on 08/25/2020 by Guillermo Pineda MD at [facility] Left: Foot SYNTHES 900.721 / STERILIZER4, LOAD3: STERILIZED / 3.5mm Cannulated Screws, Fully Threaded Implanted:Qty: 1 on 08/25/2020 by Guillermo Pineda MD at [facility] Left: Foot 205.224 / / Description:Sterilizer # nicole d #3 August 11, 2020 Explanted Type Area Vp Of Marketing Device Identifier Shelf Expiration Date Model / Serial / Lot Screw Bone 18x3.5mm Compression Ss Locking Self Tapping Full Thread T15 Stardrive Recess - [id number] Implanted:Qty: 1 by Guillermo Pineda MD Explanted:Qty: 1 on 11/20/2019 by Guillermo Pineda MD at [facility] Left: Ankle SYNTHES 212.105 / / AUTO#3 LOAD #1 Screw Bone 3.5x14mm Cortex Self Tapping Fully Threaded Hex Head Ss - [id number] Implanted:Qty: 1 Explanted:Qty: 1 on 11/20/2019 at [facility] Left: Ankle SYNTHES 204.814 / / AUTO#3 LOAD #1 Procedures Procedure Name Priority Date/Time Associated Diagnosis Comments PAP TEST Routine 11/16/2023 12:00 AM EDT from Last 3 Months or Most Recently Relevant to Health Maintenance Results * Pap Test (11/16/2023 12:00 AM EDT) Report [address] [address] City Jailer: Jennifer Boyre MD SMALL ANIMAL CARETAKER Cytology Report FINAL DIAGNOSIS A. PAP SMEAR (THIN PREP) CE: SPECIMEN ADEQUACY: Satisfactory for evaluation; transformation zone present. INTERPRETATION: NEGATIVE FOR INTRAEPITHELIAL LESION OR MALIGNANCY. This specimen was analyzed by the automated ThinPrep Imaging System ([employer] and the selected mishra were reviewed by a picking belt operator. Electronically Signed Out By: NICOLE Herndon(ASCP) The [...] 59, 66, 68) Note: Testing performed by [employer] [facility] HR-HPV analysis. Clinical correlation is advised. This HPV test was performed at [facility] [place], [address] [place] [address]. This test has been FDA approved for both SurePath and ThinPrep cervical cytology specimens. The accuracy and precision of this test for all other specimen sources has been verified in the Cytopathology Laboratory of the [facility] [place] and has not been cleared or approved by the U.S. Food and Drug Administration. Clinical correlation is advised. CLINICAL HISTORY Date of Last Menstrual Period: 11-06-2023 Other Clinical Conditions: Screening Pap SPECIMEN SOURCE A: PAP SMEAR (THIN PREP) CE Patient Name: IVAN WILKINSON : 1990 (Age: 33) Sex: F Institution: [facility] Location: [facility] Date of Collection: 11/16/2023 Date of Reported: 11/22/2023 13:06 Results to: Shannon Garcia [employer]T [employer]SE SUPERVISOR [facility] Final Diagnosis A. PAP SMEAR (THIN PREP) CE: SPECIMEN ADEQUACY: Satisfactory for evaluation; transformation zone present. INTERPRETATION: NEGATIVE FOR INTRAEPITHELIAL LESION OR MALIGNANCY. This specimen was analyzed by the automated ThinPrep Imaging System ([employer] and the selected mishra were reviewed by a picking belt operator. [facility] Results\Inter pretation A. PAP SMEAR (THIN PREP) CE: Human Papilloma Virus TestNEGATIVE for high-risk Human Papilloma Virus types 16, 18, 45 and the Other high risk probe set (Includes 31, 33, 35, 39, 51, 52, 56, 58, 59, 66, 68)Note: Testing performed by [employer] Onclarity HR-HPV analysis. Clinical correlation is advised. This HPV test was performed at [facility] [place], [address] [place] [address]. This test has been FDA approved for both SurePath and ThinPrep cervical cytology specimens. The accuracy and precision of this test for all other specimen sources has been verified in the Cytopathology Laboratory of the [facility] [place] and has not been cleared or approved by the U.S. Food and Drug Administration. Clinical correlation is advised. [facility] Conversion Type (Conversion Source) 11/16/2023 11/17/2023 10:35 AM EDT us Shannon Garcia NP CYTOLOGY ORDERABLES Edited Result - Final [facility] [address] [place] [address] from Last 3 Months or Most Recently Relevant to Health Maintenance Insurance [employer]UE [employer] BLUE BENEFITS ADMINISTRATORS [employer] [address] [place] [address] [employer]ENEF[employer] ADMINISTRATORS [facility] INSURANCE Advance Directives For more information, please contact: [phone] (9AM - 5PM [facility], Tuesday-Tuesday) * Full Code (Presumed) (Latest Code Status on File) Date Activated Date Inactivated Comments 07/07/2017 8:30 AM 07/07/2017 3:58 PM Care Teams Milled Rice Broker Relationship Specialty Start Date End Date Elicia Valentin PA [address] [place] [address] PCP - General Physician Wet Char Conveyor Tender 04/24/25 Additional Source Comments The information contained in this document represents components of the legal health record. It is not the complete legal health record.[facility]
--- OUTSIDE RECORDS SUMMARY | 2025-05-16 10:27 | XMS_ITS | Encounter Summary ---
Author Organization [facility] Address [address] [facility] [address] [place] [address] Phone Care Team Providers Care Certified Phlebotomy Technician Name Role Phone Edmund Cope MD Primary Care Provider + Edmund Cope MD Unavailable [phone] Edmund Cpoe MD Primary Care Provider + Shannon Garcia NP Primary Care Provid er + Regulo Lundberg MD Unavailable + Carey Boyd Primary Care Provider [phone] Natasha Cerrato RN Unavailable Shnada Wilkinson MD Unavailable + Regulo Lundberg MD Unavailable + Shanda Wilkinson MD Unavailable + Shanda Wilkinson MD Unavailable + Elicia Valentin Primary Care Provider [phone] Encounter Details Date Type Department Care Team (Late st Contact Info) Description 01/04/2020 Procedure Pass [facility], [facility] [address] [place] [address] Social History Tobacco Use Types Packs/Day Years [...] Surgery, Foot & Ankle Service [address] [facility], 3rd Floor, [address] [place] [address] Guillermo Pineda MD [address] [facility] 2ND [place] [address] [email or web address] documented as of this encounter Visit Diagnoses Not on filedocumented in this encounter Care Teams Certified Phlebotomy Technician Relationship Specialty Start Date End Date Edmund Cope MD [email or web address] PCP - General Internal Medicine 05/16/17 01/07/20 Edmund Cope MD [email or web address] PCP - General Internal Medicine 01/08/20 02/14/20 Shannon Garcia NP [address] [place] [address] [email or web address] PCP - General Family Medicine 02/15/20 08/12/20 Carey Boyd PA [address] [place] [phone] PCP - General Hospital Pharmacy Technician 08/13/20 04/23/25 Elicia Valentin PA [address] [place] [address] PCP - General Physician Senior Examiner 04/24/25 Edmund Cope MD [address] [place] [address] [email or web address] Insurance Assigned Provider 09/19/19 04/19/20 Regulo Lundberg MD [address] [place] [address] [email or web address] Insurance Assigned Provider 04/19/20 09/20/20 Natasha Cerrato, FRITZ [address] [place] [address] [email or web address] [facility] Share Dairy Farmer 08/14/20 08/31/20 Shanda Wilkinson MD [address] [place] [address] Insurance Assigned Provider 09/20/20 11/16/20 Regulo Lundberg MD [address] [place] [address] [email or web address] Insurance Assigned Provider 11/16/20 04/18/22 Shanda Wilkinson MD [address] [place] [phone] Insurance Assigned Provider 04/18/22 01/18/23 Shanda Wilkinson MD [address] [place] [address] [email or web address] Insurance Assigned Provider 04/18/22 02/19/23 documented as of this encounter Additional Source Comments The information contained in this document represents components of the legal health record. It is not the complete legal health record.[facility]
--- OUTSIDE RECORDS SUMMARY | 2025-05-16 10:27 | XMS_ITS | Encounter Summary ---
Author Organization [facility] Address [address] [facility] [place] [address] Phone Care Team Providers Care Car Construction Superintendent Name Role Phone Regulo Lundberg MD Unavailable Carey Boyd Primary Care Provider [phone] Shanda Wilkinson MD Unavailable [phone] Regulo Lundberg MD Unavailable [phone] Shanda Wilkinson MD Unavailable Shanda Wilkinson MD Unavailable [phone] Elicia Valentin Primary Care Provider [phone] Encounter Details Date Type Department Care Team (Late st Contact Info) Description 09/08/2020 Ancillary Orders [facility] Department of Orthopaedic Surgery, Foot & Ankle Service [address] [facility], 3rd Floor, [address] [place] [address] Ruiz Sauer PA-C [address] [place] [address] [email or web address] Social History Tobacco Use Types [...] Description 05/22/2025 10:45 AM EST Office Visit [facility] Department of Orthopaedic Surgery, Foot & Ankle Service [address] [facility], 3rd Floor, [address] [place] [address] Guillermo Pineda MD [address] [facility] 2ND [place] [address] [email or web address] documented as of this encounter Results * [...] pain documented in this encounter Care Teams Car Construction Superintendent Relationship Specialty Start Date End Date Carey Boyd PA [address] [place] [address] PCP - General Instrument Lens Generator 08/13/20 04/23/25 Elicia Valentin PA [address] [place] [address] PCP - General Physician Die Attacher 04/24/25 Regulo Lundberg MD [address] [place] [address] Insurance Assigned Provider 04/19/20 09/20/20 Shanda Wilkinson MD [address] [place] [address] Insurance Assigned Provider 09/20/20 11/16/20 Regulo Lundberg MD [address] [place] [address] [email or web address] Insurance Assigned Provider 11/16/20 04/18/22 Shanda Wilkinson MD [address] [place] [address] [email or web address] Insurance Assigned Provider 04/18/22 01/18/23 Shanda Wilkinson MD [address] [place] [address] [email or web address] Insurance Assigned Provider 04/18/22 02/19/23 documented as of this encounter Additional Source Comments The information contained in this document represents components of the legal health record. It is not the complete legal health record.[facility]
--- OUTSIDE RECORDS SUMMARY | 2025-05-16 10:27 | XMS_ITS | Encounter Summary ---
Author Organization [facility] Address [address] [facility] [address] [place] [address] Phone Care Team Providers Care Personnel Security Specialist Name Role Phone Edmund Cope MD Primary Care Provider + Edmund Cope MD Unavailable [phone] Edmund Cope MD Primary Care Provider + Shannon Garcia NP Primary Care Provid er + Regulo Lundberg MD Unavailable + Carey Boyd Primary Care Provider [phone] Natasha Cerrato RN Unavailable Shanda Wilkinson MD Unavailable + Regulo Lundberg MD Unavailable + Shanda Wilkinson MD Unavailable + Shanda Wilkinson MD Unavailable + Elicia Valentin Primary Care Provider [phone] Encounter Details Date Type Department Care Team (Late st Contact Info) Description 01/04/2020 Procedure Pass [facility], [facility] [address] [place] [address] Social History Tobacco Use Types Packs/Day Years [...] [address] [facility], 3rd Floor, [address] [place] [address] Guillermo Pineda MD [address] [facility] 2ND [place] [address] [email or web address] documented as of this encounter Visit Diagnoses Not on filedocumented in this encounter Care Teams Personnel Security Specialist Relationship Specialty Start Date End Date Edmund Cope MD [email or web address] PCP - General Internal Medicine 05/16/17 01/07/20 Edmund Cope MD [email or web address] PCP - General Internal Medicine 01/08/20 02/14/20 Shannon Garcia NP [address] [place] [address] [email or web address] PCP - General Family Medicine 02/15/20 08/12/20 Carey Boyd PA [address] [place] [address] PCP - General Market Investigator 08/13/20 04/23/25 Elicia Valentin PA [address] [place] [address] PCP - General Physician Hiv Counselor 04/24/25 Edmund Cope MD [address] [place] [address] [email or web address] Insurance Assigned Provider 09/19/19 04/19/20 Regulo Lundberg MD [address] [place] [address] [email or web address] Insurance Assigned Provider 04/19/20 09/20/20 Natasha Cerrato, FRITZ [address] [place] [address] [email or web address] [facility] Lidar Technician 08/14/20 08/31/20 Shanda Wilkinson MD [address] [place] [address] Insurance Assigned Provider 09/20/20 11/16/20 Regulo Lundberg MD [address] [place] [address] [email or web address] Insurance Assigned Provider 11/16/20 04/18/22 Shanda Wilkinson MD [address] [place] [phone] Insurance Assigned Provider 04/18/22 01/18/23 Shanda Wilkinson MD [address] [place] [address] [email or web address] Insurance Assigned Provider 04/18/22 02/19/23 documented as of this encounter Additional Source Comments The information contained in this document represents components of the legal health record. It is not the complete legal health record.[facility]
--- OUTSIDE RECORDS SUMMARY | 2025-05-16 10:27 | XMS_ITS | Encounter Summary ---
Author Organization [facility] Address [address] [facility] [address] [place] [address] Phone Care Team Providers Care Excel Analyst Name Role Phone Edmund Cope MD Primary Care Provider + Edmund Cope MD Unavailable [phone] Edmund Cope MD Unavailable [phone] Edmund Cope MD Primary Care Provider + Shannon Garcia NP Primary Care Provid er + Regulo Lundberg MD Unavailable + Carey Boyd Primary Care Provider [phone] Natasha Cerrato RN Unavailable Shanda Wilkinson MD Unavailable + Regulo Lundberg MD Unavailable + Shanda Wilkinson MD Unavailable + Shanda Wilkinson MD Unavailable + Elicia Valentin Primary Care Provider [phone] Encounter Details Date Type Department Care Team (Late st Contact Info) Description 07/07/2017 Procedure Pass [place] Admitting Dept - Virtual Department [address] [place] [address] Social History Tobacco Use Types Packs/Day Years [...] Orthopaedic Surgery, Foot & Ankle Service [address] [facility], 3rd Floor, [address] [place] [address] Guillermo Pineda MD [address] [facility] 2ND [place] [address] [email or web address] documented as of this encounter Visit Diagnoses Not on filedocumented in this encounter Care Teams Excel Analyst Relationship Specialty Start Date End Date Edmund Cope MD [email or web address] PCP - General Internal Medicine 05/16/17 01/07/20 Edmund Cope MD [email or web address] PCP - General Internal Medicine 01/08/20 02/14/20 Shannon Garcia NP [address] [place] [address] [email or web address] PCP - General Family Medicine 02/15/20 08/12/20 Carey Boyd PA [address] [place] [address] PCP - General Customer Manager 08/13/20 04/23/25 Elicia Valentin PA [address] [place] [address] PCP - General Physician Blood Bank Supervisor 04/24/25 Edmund Cope MD [address] [place] [address] [email or web address] Insurance Assigned Provider 10/14/18 03/24/19 Edmund Cope MD [address] [place] [address] [email or web address] Insurance Assigned Provider 09/19/19 04/19/20 Regulo Lundberg MD [address] [place] [address] Insurance Assigned Provider 04/19/20 09/20/20 Natasha Cerrato RN [address] [place] [address] PHCM Plumbing Installer 08/14/20 08/31/20 Shanda Wilkinson MD [address] [place] [address] Insurance Assigned Provider 09/20/20 11/16/20 Regulo Lundberg MD [address] [place] [address] [email or web address] Insurance Assigned Provider 11/16/20 04/18/22 Shanda Wilkinson MD [address] [place] [address] [email or web address] Insurance Assigned Provider 04/18/22 01/18/23 Shanda Wilkinson MD [address] [place] [address] [email or web address] Insurance Assigned Provider 04/18/22 02/19/23 documented as of this encounter Additional Source Comments The information contained in this document represents components of the legal health record. It is not the complete legal health record.[facility]
--- OUTSIDE RECORDS SUMMARY | 2025-05-16 10:27 | XMS_ITS | Encounter Summary ---
Author Organization [facility] Address [address] [facility] [address] [place] [address] Phone Care Team Providers Care Career Services Assistant Name Role Phone Edmund Cope MD Primary Care Provider + Edmund Cope MD Unavailable [phone] Edmund Cope MD Unavailable [phone] Edmund Cope MD Primary Care Provider + Shannon Garcia NP Primary Care Provid er + Regulo Lundberg MD Unavailable + Carey Boyd Primary Care Provider [phone] Natasha Cerrato RN Unavailable Shanda Wilkinson MD Unavailable + Regulo Lundberg MD Unavailable + Shanda Wilkinson MD Unavailable + Shanda Wilkinson MD Unavailable [phone] Elicia Valentin Primary Care Provider [phone] Encounter Details Date Type Department Care Team (Late st Contact Info) Description 05/13/2017 Ancillary Orders Virtual Department [address] [place] [address] Carey Boyd PA [address] [place] [id number] Right shoulder pain, unspecified chronicity Social History [...] Description 05/22/2025 10:45 AM EST Office Visit [facility] Department of Orthopaedic Surgery, Foot & Ankle Service [address] [facility], 3rd Floor, [address] [place] [address] Guillermo Pineda MD [address] [facility] [address] [place] [address] [email or web address] documented as of this [...] be due to mild bursitis. POS - [id number] Narrative 05/19/2017 10:31 AM EST HISTORY: Pain, [...] be due to mild bursitis. POS - [id number] Carey BECERRA IMG MR EXTREMITY Final Res ult documented in this encounter Visit Diagnoses Diagnosis Right shoulder pain, unspecified chronicity Right shoulder pain, unspecified chronicity documented in this encounter Care Teams Career Services Assistant Relationship Specialty Start Date End Date Edmund Cope MD PCP - General Internal Medicine 05/16/17 01/07/20 Edmund Cope MD PCP - General Internal Medicine 01/08/20 02/14/20 Shannon Garcia, RICARDO [address] [place] [address] [email or web address] PCP - General Family Medicine 02/15/20 08/12/20 Carey Boyd PA [address] [place] [address] PCP - General Measurement Specialist 08/13/20 04/23/25 Elicia Valentin PA [address] [place] [address] PCP - General Physician Owner Spa Director 04/24/25 Edmund Cope MD [address] [place] [address] [email or web address] Insurance Assigned Provider 10/14/18 03/24/19 Edmund Cope MD [address] [place] [address] [email or web address] Insurance Assigned Provider 09/19/19 04/19/20 Regulo Lundberg MD [address] [place] [address] [email or web address] Insurance Assigned Provider 04/19/20 09/20/20 Natasha Cerrato, RN 10 [place] [address] [email or web address] [facility] Electro Mechanical Technologist 08/14/20 08/31/20 Shanda Wilkinson MD [address] [place] [address] [email or web address] Insurance Assigned Provider 09/20/20 11/16/20 Regulo Lundberg MD [address] [place] [address] [email or web address] Insurance Assigned Provider 11/16/20 04/18/22 Shanda Wilkinson MD [address] [place] [address] [email or web address] Insurance Assigned Provider 04/18/22 01/18/23 Shanda Wilkinson MD [address] [place] [address] [email or web address] Insurance Assigned Provider 04/18/22 02/19/23 documented as of this encounter Additional Source Comments The information contained in this document represents components of the legal health record. It is not the complete legal health record.[facility]
--- OUTSIDE RECORDS SUMMARY | 2025-05-16 10:27 | XMS_ITS | Encounter Summary ---
Author Organization [facility] Address [address] [facility] [address] [place] [address] Phone Care Team Providers Care Motorcycle Police Name Role Phone Carey Boyd Primary Care Provider [phone] Regulo Lundberg MD Unavailable Shanda Wilkinson MD Unavailable Shanda Wilkinson MD Unavailable Elicia Valentin Primary Care Provider [phone] Encounter Details Date Type Department Care Team (Late st Contact Info) Description 12/08/2021 Procedure Pass [facility] MR Imaging, [place] [address] [place] [address] Social History Tobacco Use Types Packs/Day Years [...] Description 05/22/2025 10:45 AM EST Office Visit [facility] Department of Orthopaedic Surgery, Foot & Ankle Service [address] [facility], 3rd Floor, [address] [place] [address] Guillermo Pineda MD [address] [facility] 2ND [place] [address] [email or web address] documented as of this encounter Visit Diagnoses Not on filedocumented in this encounter Care Teams Motorcycle Police Relationship Specialty Start Date End Date Carey Boyd PA [address] [place] [address] PCP - General Contour Stitcher 08/13/20 04/23/25 Elicia Valentin PA [address] [place] [address] PCP - General Physician Sewer Maintenance Supervisor 04/24/25 Regulo Lundberg MD [address] [place] [address] [email or web address] Insurance Assigned Provider 11/16/20 04/18/22 Shanda Wilkinson MD [address] [place] [address] Insurance Assigned Provider 04/18/22 01/18/23 Shanda Wilkinson MD [address] [place] [address] [email or web address] Insurance Assigned Provider 04/18/22 02/19/23 documented as of this encounter Additional Source Comments The information contained in this document represents components of the legal health record. It is not the complete legal health record.[facility]
--- OUTSIDE RECORDS SUMMARY | 2025-05-16 10:27 | XMS_ITS | Encounter Summary ---
Author Organization [facility] Address [address] [facility] [address] [place] [address] Phone Care Team Providers Care Healthcare Manager Name Role Phone Edmund Cope MD Unavailable [phone] Edmund Cope MD Primary Care Provider [phone] Shannon Garcia NP Primary Care Provid er Regulo Lundberg MD Unavailable [phone] Carey Boyd Primary Care Provider [phone] Natasha Cerrato RN Unavailable Shanda Wilkinson MD Unavailable [phone] Regulo Lundberg MD Unavailable [phone] Shanda Wilkinson MD Unavailable [phone] Shanda Wilkinson MD Unavailable [phone] Elicia Valentin Primary Care Provider Encounter Details Date Type Department Care Team (Late st Contact Info) Description 01/15/2020 Ancillary Orders [facility],Outside Imaging [address] [place], [place] [id number] System, Provider Not In, [facility] [address] [address] Social History Tobacco Use Types Packs/Day Years [...] [facility], 3rd Floor, [address] [place] [address] Guillermo Pineda MD [address] [facility] 2ND [place] [address] [email or web address] [...] on filedocumented in this encounter Care Teams Healthcare Manager Relationship Specialty Start Date End Date Edmund Cope MD [address] [place] [address] [email or web address] PCP - General Internal Medicine 01/08/20 02/14/20 Shannon Garcia NP [address] [place] [address] [email or web address] PCP - General Family Medicine 02/15/20 08/12/20 Carey Boyd PA [address] [place] [address] PCP - General Bell Neck Hammerer 08/13/20 04/23/25 Elicia Valentin PA [address] [place] [address] PCP - General Physician Rn Wound Care 04/24/25 Edmund Cope MD [address] [place] [address] [email or web address] Insurance Assigned Provider 09/19/19 04/19/20 Regulo Lundberg MD [address] [place] [address] Insurance Assigned Provider 04/19/20 09/20/20 Natasha Cerrato RN [address] [place] [address] PHC Orthopedic Assistant 08/14/20 08/31/20 Shanda Wilkinson MD [address] [place] [address] Insurance Assigned Provider 09/20/20 11/16/20 Regulo Lundberg MD [address] [place] [address] [email or web address] Insurance Assigned Provider 11/16/20 04/18/22 Shanda Wilkinson MD [address] [place] [address] [email or web address] Insurance Assigned Provider 04/18/22 01/18/23 Shanda Wilkinson MD [address] [place] [address] [email or web address] Insurance Assigned Provider 04/18/22 02/19/23 documented as of this encounter Additional Source Comments The information contained in this document represents components of the legal health record. It is not the complete legal health record.[facility]
--- OUTSIDE RECORDS SUMMARY | 2025-05-16 10:27 | XMS_ITS | Encounter Summary ---
Author Organization [facility] Address [address] [facility] [address] [place] [address] Phone Care Team Providers Care Work Car Operator Name Role Phone Edmund Cope [...] Unavailable + Elicia Valentin Primary Care Provider [phone] Encounter Details Date Type Department Care Team (Late st Contact Info) Description 05/13/2017 Procedure Pass [facility], Mri - Main [address] [address] Social History Tobacco Use Types Packs/Day Years [...] Orthopaedic Surgery, Foot & Ankle Service [address] [facility], 3rd Floor, [address] [place] [address] Guillermo Pineda MD [address] [facility] 2ND [place] [address] [email or web address] documented as of this encounter Visit Diagnoses Not on filedocumented in this encounter Care Teams Work Car Operator Relationship Specialty Start Date End Date Edmund Cope MD [email or web address] PCP - General Internal Medicine 05/16/17 01/07/20 Edmund Cope MD [email or web address] PCP - General Internal Medicine 01/08/20 02/14/20 Shannon Garcia NP [address] [place] [address] [email or web address] PCP - General Family Medicine 02/15/20 08/12/20 Carey Boyd PA [address] [place] [address] PCP - General Fast Food Shift Lead 08/13/20 04/23/25 Elicia Valentin PA [address] [place] [address] PCP - General Physician Campaign Coordinator 04/24/25 Edmund Cope MD [address] [place] [address] [email or web address] Insurance Assigned Provider 10/14/18 03/24/19 Edmund Cope MD [address] [place] [address] [email or web address] Insurance Assigned Provider 09/19/19 04/19/20 Regulo Lundberg MD [address] [place] [address] [email or web address] Insurance Assigned Provider 04/19/20 09/20/20 Natasha Cerrato RN [address] [place] [address] [email or web address] PHC In School Suspension Aide 08/14/20 08/31/20 Shanda Wilkinson MD [address] [place] [address] [email or web address] Insurance Assigned Provider 09/20/20 11/16/20 Regulo Lundberg MD [address] [place] [address] [email or web address] Insurance Assigned Provider 11/16/20 04/18/22 Shanda Wilkinson MD [address] [place] [address] [email or web address] Insurance Assigned Provider 04/18/22 01/18/23 Shanda Wilkinson MD [address] [place] [address] [email or web address] Insurance Assigned Provider 04/18/22 02/19/23 documented as of this encounter Additional Source Comments The information contained in this document represents components of the legal health record. It is not the complete legal health record.[facility]
--- OUTSIDE RECORDS SUMMARY | 2025-05-16 10:28 | XMS_ITS | Encounter Summary ---
Author Organization [facility] Address [address] [facility] [address] [place] [address] Phone Care Team Providers Care Corporate Controller Name Role Phone Edmund Cope MD Primary [...] Unavailable + Elicia Valentin Primary Care Provider [phone] Encounter Details Date Type Department Care Team (Late st Contact Info) Description 11/15/2018 Procedure Pass [facility], Mri - Main [address] [address] Social History Tobacco Use Types Packs/Day Years [...] [facility], 3rd Floor, [address] [place] [address] Guillermo Pineda MD [address] [facility] 2ND [place] [address] [email or web address] documented as of this encounter Visit Diagnoses Not on filedocumented in this encounter Care Teams Corporate Controller Relationship Specialty Start Date End Date Edmund Cope MD [email or web address] PCP - General Internal Medicine 05/16/17 01/07/20 Edmund Cope MD [email or web address] PCP - General Internal Medicine 01/08/20 02/14/20 Shannon Garcia NP [address] [place] [address] [email or web address] PCP - General Family Medicine 02/15/20 08/12/20 Carey Boyd PA [address] [place] [address] PCP - General Interceptor Operator 08/13/20 04/23/25 Elicia Valentin PA [address] [place] [address] PCP - General Physician Framing Carpenter 04/24/25 Edmund Cope MD [address] [place] [address] [email or web address] Insurance Assigned Provider 10/14/18 03/24/19 Edmund Cope MD [address] [place] [address] Insurance Assigned Provider 09/19/19 04/19/20 Regulo Lundberg MD [address] [place] [address] Insurance Assigned Provider 04/19/20 09/20/20 Natasha Cerrato RN [address] [place] [address] PHCM Manager Transportation 08/14/20 08/31/20 Shanda Wilkinson MD [address] [place] [address] Insurance Assigned Provider 09/20/20 11/16/20 Regulo Lundberg MD [address] [place] [address] [email or web address] Insurance Assigned Provider 11/16/20 04/18/22 Shanda Wilkinson MD [address] [place] [address] [email or web address] Insurance Assigned Provider 04/18/22 01/18/23 Shanda Wilkinson MD [address] [place] [address] [email or web address] Insurance Assigned Provider 04/18/22 02/19/23 documented as of this encounter Additional Source Comments The information contained in this document represents components of the legal health record. It is not the complete legal health record.[facility]
--- OUTSIDE RECORDS SUMMARY | 2025-05-16 10:28 | XMS_ITS | Encounter Summary ---
Author Organization [facility] Address [address] [facility] [address] [place] [address] Phone Care Team Providers Care Physical Therapist Technician Name Role Phone Carey Boyd Primary Care Provider [phone] Regulo Lundberg MD Unavailable [phone] Shanda Wilkinson MD Unavailable [phone] Shanda Wilkinson MD Unavailable [phone] Elicia Valentin Primary Care Provider [phone] Encounter Details Date Type Department Care Team (Late st Contact Info) Description 01/27/2021 Procedure Pass [facility] WAL PERIOP [address] [place] [address] Social History Tobacco Use Types [...] Description 05/22/2025 10:45 AM EST Office Visit [facility] Department of Orthopaedic Surgery, Foot & Ankle Service [address] [facility], 3rd Floor, [address] [place] [address] Guillermo Pineda MD [address] [facility] 2ND [place] [address] [email or web address] documented as of this encounter Visit Diagnoses Not on filedocumented in this encounter Care Teams Physical Therapist Technician Relationship Specialty Start Date End Date Carey Boyd PA [address] [place] [address] PCP - General Power And Recovery Supervisor 08/13/20 04/23/25 Elicia Valentin PA [address] [place] [address] PCP - General Physician Worm Picker 04/24/25 Regulo Lundberg MD [address] [place] [address] [email or web address] Insurance Assigned Provider 11/16/20 04/18/22 Shanda Wilkinson MD [address] [place] [address] [email or web address] Insurance Assigned Provider 04/18/22 01/18/23 Shanda Wilkinson MD [address] [place] [address] [email or web address] Insurance Assigned Provider 04/18/22 02/19/23 documented as of this encounter Additional Source Comments The information contained in this document represents components of the legal health record. It is not the complete legal health record.[facility]
--- OUTSIDE RECORDS SUMMARY | 2025-05-16 10:28 | XMS_ITS | Encounter Summary ---
Author Organization [facility] Address [address] [facility] [address] [place] [address] Phone Care Team Providers Care Tennis Court Attendant Name Role Phone Carey Boyd Primary Care Provider [phone] Regulo Lundberg MD Unavailable [phone] Shanda Wilkinson MD Unavailable [phone] Shanda Wilkinson MD Unavailable [phone] Elicia Valentin Primary Care Provider [phone] Encounter Details Date Type Department Care Team (Late st Contact Info) Description 01/19/2022 Procedure Pass [facility], X-Ray - [facility] [address] [place], [place] [id number] Social History Tobacco Use Types Packs/Day Years [...] 10:45 AM EST Office Visit [facility] Department of Orthopaedic Surgery, Foot & Ankle Service [address] [facility], 3rd Floor, [address] [place] [address] Guillermo Pineda MD [address] [facility] 2ND [place] [address] [email or web address] documented as of this encounter Visit Diagnoses Not on filedocumented in this encounter Care Teams Tennis Court Attendant Relationship Specialty Start Date End Date Carey Boyd PA [address] [place] [address] PCP - General Photographer Aerial 08/13/20 04/23/25 Elicia Valentin PA [address] [place] [address] PCP - General Physician Senior Packaging Engineer 04/24/25 Regulo Lundberg MD [address] [place] [address] [email or web address] Insurance Assigned Provider 11/16/20 04/18/22 Shanda Wilkinson MD [address] [place] [address] [email or web address] Insurance Assigned Provider 04/18/22 01/18/23 Shanda Wilkinson MD [address] [place] [address] [email or web address] Insurance Assigned Provider 04/18/22 02/19/23 documented as of this encounter Additional Source Comments The information contained in this document represents components of the legal health record. It is not the complete legal health record.[facility]
--- OUTSIDE RECORDS SUMMARY | 2025-05-16 10:28 | XMS_ITS | Encounter Summary ---
Author Organization [facility] Address [address] [facility] [address] [place] [address] Phone Care Team Providers Care Weatherization Coordinator Name Role Phone Carey Boyd Primary Care Provider [phone] Regulo Lundberg MD Unavailable [phone] Shanda Wilkinson MD Unavailable [phone] Shanda Wilkinson MD Unavailable [phone] Elicia Valentin Primary Care Provider [phone] Reason for Referral * Physical Therapy (Routine) - Closed Specialty Diagnoses / Procedures Referred By Contac t Referred To Contact Physical Therapy Diagnoses Encounter for rehabilitation Shannon Garcia NP [address] [place] [address] Phone: tel: fax: [email or web address] [place] [address] Phone: tel: Referral ID Status Reason Start Date Expiration Date Visits Re quested Visits Authorized [id number] Closed 02/13/2021 02/13/2022 1 1 Encounter Details Date Type Department Care Team (Latest Contact Info) Description 02/13/2021 Transcribe Orders [facility] Rehabilitation Services [address] [place] [address] Shannon Garcia, RICARDO [address] [place] [phone] [email or web address] Encounter for rehabilitation (Primary Dx) Social History [...] Description 05/22/2025 10:45 AM EST Office Visit [facility] Department of Orthopaedic Surgery, Foot & Ankle Service [address] [facility], 3rd Floor, [address] [place] [address] Guillermo Pineda MD [address] [facility] 2ND [place] [address] [email or web address] Scheduled Referrals Name Type Priority Associated Diagnoses Orde r Schedule Ambulatory referral to [facility] Physical Therapy Outpatient Referral Routine Encounter for rehabilitation Ordered: 02/13/2021 documented as of this encounter Visit Diagnoses Diagnosis Encounter for rehabilitation- Primary documented in this encounter Care Teams Weatherization Coordinator Relationship Specialty Start Date End Date Carey Boyd PA [address] [place] [address] PCP - General Cia Agent 08/13/20 04/23/25 Elicia Valentin PA [address] [place] [address] PCP - General Physician Pit Shoveler 04/24/25 Regulo Lundberg MD [address] [place] [address] [email or web address] Insurance Assigned Provider 11/16/20 04/18/22 Shanda Wilkinson MD [address] [place] [address] Insurance Assigned Provider 04/18/22 01/18/23 Shanda Wilkinson MD [address] [place] [address] [email or web address] Insurance Assigned Provider 04/18/22 02/19/23 documented as of this encounter Additional Source Comments The information contained in this document represents components of the legal health record. It is not the complete legal health record.[facility]
--- OUTSIDE RECORDS SUMMARY | 2025-05-16 10:28 | XMS_ITS | Encounter Summary ---
Author Organization [facility] Address [address] [facility] [address] [place] [address] Phone Care Team Providers Care Sales Operations Analyst Name Role Phone Edmund Cope MD [...] Unavailable + Elicia Valentin Primary Care Provider [phone] Encounter Details Date Type Department Care Team (Latest Contact Info) Description 01/24/2018 Transcribe Orders Virtual Department 30 [place] [address] Guillermo Villar MD [address] [place] [address] [email or web address] Elbow pain, left (Primary Dx) Social History [...] [place] [facility] [place] of [place]opaedic Surgery, Foot & Ankle Service [address] [place] [address], 3rd Floor, [address] [place] [address] Guillermo Pineda MD [address] [facility] 2ND [place] [address] [email or web address] documented as of this encounter Visit Diagnoses Diagnosis Elbow pain, left- Primary Pain in joint, upper arm documented in this encounter Care Teams Sales Operations Analyst Relationship Specialty Start Date End Date Edmund Cope MD [email or web address] PCP - General Internal Medicine 05/16/17 01/07/20 Edmund Cope MD [email or web address] PCP - General Internal Medicine 01/08/20 02/14/20 Shannon Garcia NP [address] [place] [address] [email or web address] PCP - General Family Medicine 02/15/20 08/12/20 Carey Boyd PA [address] [place] [address] PCP - General Shotgun Shell Reprinting Unit Operator 08/13/20 04/23/25 Elicia Valentin PA [address] [place] [phone] PCP - General Physician Network Professional 04/24/25 Edmund Cope MD [address] [place] [phone] Insurance Assigned Provider 10/14/18 03/24/19 Edmund Cope MD [address] [place] [address] 32815 Insurance Assigned Provider 09/19/19 04/19/20 Regulo Lundberg MD [address] [place] [address] [phone] Insurance Assigned Provider 04/19/20 09/20/20 Natasha Cerrato, FRITZ [address] [place] [address] PHC Cytotechnologist Supervisor 08/14/20 08/31/20 Shanda Wilkinson MD [address] [place] [address] 51413 Insurance Assigned Provider 09/20/20 11/16/20 Regulo Lundberg MD [address] [place] [address] [email or web address] Insurance Assigned Provider 11/16/20 04/18/22 Shanda Wilkinson MD [address] [place] [address] [email or web address] Insurance Assigned Provider 04/18/22 01/18/23 Shanda Wilkinson MD [address] [place] [address] [email or web address] Insurance Assigned Provider 04/18/22 02/19/23 documented as of this encounter Additional Source Comments The information contained in this document represents components of the legal health record. It is not the complete legal health record.[facility]
--- OUTSIDE RECORDS SUMMARY | 2025-05-16 10:28 | XMS_ITS | Encounter Summary ---
Author Organization [facility] Address [address] [employer] [facility] [address] [place] [address] Phone Care Team Providers Care Family Services Specialist Name Role Phone Shannon Garcia NP Primary Care Provid er Regulo Lundberg MD Unavailable Carey Boyd Primary Care Provider [phone] Natasha Cerrato RN Unavailable Shanda Wilkinson MD Unavailable Regulo Lundberg MD Unavailable [phone] Shanda Wilkinson MD Unavailable [phone] Shanda Wilkinson MD Unavailable Elicia Valentin Primary Care Provider [phone] Encounter Details Date Type Department Care Team (Late st Contact Info) Description 05/15/2020 Procedure Pass [facility] [address] [place], [place] [id number] Social History Tobacco Use Types Packs/Day Years [...] Surgery, Foot & Ankle Service [address] [facility], 3rd Floor, [address] [place] [address] Guillermo Pineda MD [address] [facility] 2ND [place] [address] [email or web address] documented as of this encounter Visit Diagnoses Not on filedocumented in this encounter Care Teams Family Services Specialist Relationship Specialty Start Date End Date Shannon Garcia NP [address] [place] [address] [email or web address] PCP - General Family Medicine 02/15/20 08/12/20 Carey Boyd PA [address] [place] [address] PCP - General Party Bus Driver 08/13/20 04/23/25 Elicia Valentin PA [address] [place] [address] PCP - General Physician Filler Sifter Helper 04/24/25 Regulo Lundberg MD [address] [place] [address] [email or web address] Insurance Assigned Provider 04/19/20 09/20/20 Natasha Cerrato RN [address] [place] [phone] [email or web address] [facility] Towel Rolling Machine Operator 08/14/20 08/31/20 Shanda Wilkinson MD [address] [place] [address] Insurance Assigned Provider 09/20/20 11/16/20 Regulo Lundberg MD [address] [place] [address] [email or web address] Insurance Assigned Provider 11/16/20 04/18/22 Shanda Wilkinson MD [address] [place] [phone] Insurance Assigned Provider 04/18/22 01/18/23 Shanda Wilkinson MD [address] [place] [address] Insurance Assigned Provider 04/18/22 02/19/23 documented as of this encounter Additional Source Comments The information contained in this document represents components of the legal health record. It is not the complete legal health record.[facility]
--- OUTSIDE RECORDS SUMMARY | 2025-05-16 10:28 | XMS_ITS | Encounter Summary ---
Author Organization [facility] Address [address] [facility] [address] [place] [address] Phone Care Team Providers Care Deicer Repairer Name Role Phone Edmund Cope MD Primary Care Provider + Edmund Cope MD Unavailable [phone] Edmund Cope MD Unavailable [phone] Edmund Cope MD Primary Care Provider + Shannon Garcia NP Primary Care Provid er + Regulo Lundberg MD Unavailable + Carey Boyd Primary Care Provider [phone] Natasha Cerrato RN Unavailable Shanda Wilkinson MD Unavailable + Regulo Lundberg MD Unavailable + Shanda Wilkinson MD Unavailable + Shanda Wilkinson MD Unavailable [phone] Elicia Valentin Primary Care Provider [phone] Encounter Details Date Type Department Care Team (Late st Contact Info) Description 08/09/2018 Ancillary Orders Virtual Department 30 [place] [address] Aniya Jimenez MD [address] [facility] [address] [place] [address] Abnormal involuntary movement Social History Tobacco Use [...] 05/22/2025 10:45 AM EST Office Visit [facility] Department of Orthopaedic Surgery, Foot & Ankle Service 55 [facility], 3rd Floor, [address] [place] [address] Guillermo Pineda MD [address] [facility] 2ND [place] [address] [email or web address] documented as of this encounter Results * EEG (08/11/2018 2:07 PM EST) Anatomical Region Laterality Modality EEG Narrative 08/14/2018 3:34 PM EST [facility] AFFILIATE ELECTROENCEPHALOGRAPHY (EEG) LAB INTRODUCTION: The [...] persistent focal asymmetries occurred. MD Sameer Berrios [facility] Aniya Jimenez MD NEUROLOGY ORDERABLES Fi nal Result documented in this encounter Visit Diagnoses Diagnosis Abnormal involuntary movement Abnormal involuntary movements Abnormal involuntary movement Abnormal involuntary movements documented in this encounter Care Teams Deicer Repairer Relationship Specialty Start Date End Date Edmund Cope MD [email or web address] PCP - General Internal Medicine 05/16/17 01/07/20 Edmund oCpe MD [email or web address] PCP - General Internal Medicine 01/08/20 02/14/20 Shannon Garcia NP [address] [place] [address] [email or web address] PCP - General Family Medicine 02/15/20 08/12/20 Carey Boyd PA [address] [place] [address] PCP - General Product Planner 08/13/20 04/23/25 Elicia Valentin PA [address] [place] [address] PCP - General Physician Copper Plate Lithographer 04/24/25 Edmund Cope MD [address] [place] [address] [email or web address] Insurance Assigned Provider 10/14/18 03/24/19 Edmund Cope MD [address] [place] [address] [email or web address] Insurance Assigned Provider 09/19/19 04/19/20 Regulo Lundberg MD [address] [place] [address] [email or web address] Insurance Assigned Provider 04/19/20 09/20/20 Natasha Cerrato RN [address] [place] [address] [email or web address] PHC Scroll Shear Operator 08/14/20 08/31/20 Shanda Wilkinson MD [address] [place] [address] [email or web address] Insurance Assigned Provider 09/20/20 11/16/20 Regulo Lundberg MD [address] [place] [address] [email or web address] Insurance Assigned Provider 11/16/20 04/18/22 Shanda Wilkinson MD [address] [place] [address] [email or web address] Insurance Assigned Provider 04/18/22 01/18/23 Shanda Wilkinson MD [address] [place] [address] [email or web address] Insurance Assigned Provider 04/18/22 02/19/23 documented as of this encounter Additional Source Comments The information contained in this document represents components of the legal health record. It is not the complete legal health record.[facility]
--- OUTSIDE RECORDS SUMMARY | 2025-05-16 10:28 | XMS_ITS | Encounter Summary ---
Author Organization [facility] Address [address] [place] [address] Phone Care Team Providers Care Gas Substation Operator Name Role Phone Carey Boyd Primary Care Provider [phone] Shanda Wilkinson MD Unavailable [phone] Elicia Valentin Primary Care Provider [phone] Encounter Details Date Type Department Care Team (Late st Contact Info) Description 01/24/2023 Procedure Pass [address] [place] [address] Social History Tobacco Use Types Packs/Day Years [...] Orthopaedic Surgery, Foot & Ankle Service 55 [facility], 3rd Floor, [address] [place] [address] Guillermo Pineda MD [address] [facility] 2ND [place] [address] [email or web address] documented as of this encounter Visit Diagnoses Not on filedocumented in this encounter Care Teams Gas Substation Operator Relationship Specialty Start Date End Date Carey Boyd PA [address] [place] [address] PCP - General Inshore Undersea Warfare Officer 08/13/20 04/23/25 Elicia Valentin PA [address] [place] [address] PCP - General Physician Rodding Anode Worker 04/24/25 Shanda Wilkinsno MD [address] [place] [address] [email or web address] Insurance Assigned Provider 04/18/22 02/19/23 documented as of this encounter Additional Source Comments The information contained in this document represents components of the legal health record. It is not the complete legal health record.[facility]
--- OUTSIDE RECORDS SUMMARY | 2025-05-16 10:28 | XMS_ITS | Encounter Summary ---
Author Organization [facility] Address [address] [facility] [address] [place] [address] Phone Care Team Providers Care Survey Compiler Name Role Phone Edmund Cope MD Primary [...] Unavailable + Elicia Valentin Primary Care Provider [phone] Reason for Referral * Consultation (Elective) - Closed Specialty Diagnoses / Procedures Referred By Contcoco t Referred To Contact Neurology Diagnoses Myoclonus Chronic ankle pain, unspecified laterality System, Provider Not In, [facility] [address] [place] [phone] Phone: tel: Referral ID Status Reason Start Date Expiration Date Visits Re quested Visits Authorized [id number] Closed 09/01/2018 09/02/2019 1 1 Encounter Details Date Type Department Care Team (Latest Contact Info) Description 09/01/2018 Transcribe Orders [facility] [place] NEUROLOGY VIRTUAL DEPARTMENT [address] [place] [phone] Self-Referred, Patient Myoclonus (Primary Dx); Chronic [...] Description 05/22/2025 10:45 AM EST Office Visit [facility] [place] Department of Orthopaedic Surgery, Foot & Ankle Service [address] [place] [address], 3rd Floor, [address] [place] [address] Guillermo Pineda MD [address] [facility] 2ND [place] [address] [email or web address] Scheduled Referrals Name Type Priority Associated Diagnoses Orde r Schedule Ambulatory referral to [facility] Neurology Outpatient Referral Routine Myoclonus Chronic ankle pain, unspecified laterality Ordered: 09/01/2018 documented as of this encounter Visit Diagnoses Diagnosis Myoclonus- Primary Chronic ankle pain, unspecified laterality documented in this encounter Care Teams Survey Compiler Relationship Specialty Start Date End Date Edmund Cope MD [email or web address] PCP - General Internal Medicine 05/16/17 01/07/20 Edmund Cope MD [email or web address] PCP - General Internal Medicine 01/08/20 02/14/20 Shannon Garcia NP [address] [place] [address] [email or web address] PCP - General Family Medicine 02/15/20 08/12/20 Carey Boyd PA [address] [place] [address] PCP - General Health And Wellness Manager 08/13/20 04/23/25 Elicia Valentin PA [address] [place] [address] PCP - General Physician [place] [employer] [place] 04/24/25 Edmund Cope MD [address] [place] [address] [email or web address] Insurance Assigned Provider 10/14/18 03/24/19 Edmund Cope MD [address] [place] [address] [email or web address] Insurance Assigned Provider 09/19/19 04/19/20 Regulo Lundberg MD [address] [place] [address] [email or web address] Insurance Assigned Provider 04/19/20 09/20/20 Natasha Cerrato, RN [address] [place] [address] [email or web address] [facility] Food Cart Attendant 08/14/20 08/31/20 Shanda Wilkinson MD [address] [place] [address] [email or web address] Insurance Assigned Provider 09/20/20 11/16/20 Regulo Lundberg MD [address] [place] [address] [email or web address] Insurance Assigned Provider 11/16/20 04/18/22 Shanda Wilkinson MD [address] [place] [address] [email or web address] Insurance Assigned Provider 04/18/22 01/18/23 Shanda Wilkinson MD [address] [place] [address] [email or web address] Insurance Assigned Provider 04/18/22 02/19/23 documented as of this encounter Additional Source Comments The information contained in this document represents components of the legal health record. It is not the complete legal health record.[facility]
--- OUTSIDE RECORDS SUMMARY | 2025-05-16 10:28 | XMS_ITS | Encounter Summary ---
Author Organization [facility] Address [address] [employer] [facility] [address] [place] [address] Phone Care Team Providers Care Hedge Fund Trader Name Role Phone Carey Boyd Primary Care Provider [phone] Regulo Lundberg MD Unavailable Shanda Wilkinson MD Unavailable [phone] Shanda Wilkinson MD Unavailable [phone] lEicia Valentin Primary Care Provider [phone] Encounter Details Date Type Department Care Team (Late st Contact Info) Description 01/19/2022 Procedure Pass [facility] [address] [place] [address] Social History Tobacco Use Types Packs/Day Years [...] Description 05/22/2025 10:45 AM EST Office Visit [facility] [place] Department of Orthopaedic Surgery, Foot & Ankle Service [address] [facility], 3rd Floor, [address] [place] [address] Guillermo Pineda MD [address] [facility] 2ND [place] [address] [email or web address] documented as of this encounter Visit Diagnoses Not on filedocumented in this encounter Care Teams Hedge Fund Trader Relationship Specialty Start Date End Date Carey Boyd PA [address] [place] [address] PCP - General Database Support 08/13/20 04/23/25 Elicia Valentin PA [address] [place] [address] PCP - General Physician Director Of Corporate Sponsorships 04/24/25 Regulo Lundberg MD [address] [place] [address] [email or web address] Insurance Assigned Provider 11/16/20 04/18/22 Shanda Wilkinson MD [address] [place] [address] [email or web address] Insurance Assigned Provider 04/18/22 01/18/23 Shanda Wilkinson MD [address] [place] [address] [email or web address] Insurance Assigned Provider 04/18/22 02/19/23 documented as of this encounter Additional Source Comments The information contained in this document represents components of the legal health record. It is not the complete legal health record.[facility]
== END 2025-05-16 09:58 | disposition home or self-care (01) ==
LOC: HO.HPODS 09:21
PROVIDERS: PCP Physician Assistant Medical; Visit Provider Student in an Organized Health Care Education/Training Program
DX: S93.492A Sprain of other ligament of left ankle, initial encounter (principal); M19.072 Primary osteoarthritis, left ankle and foot; M24.272 Disorder of ligament, left ankle; M95.8 Other specified acquired deformities of musculoskeletal system
CPT/HCPCS: 99214

== ENCOUNTER 2025-06-04 08:30 | Outpatient (AMB) | payer OTHER, SELFPAY ==
--- OUTSIDE RECORDS SUMMARY | 2025-06-04 08:40 | XMS_ITS | Encounter Summary ---
Author Organization [facility] Address [address] [facility] [address] [place] [address] Phone Care Team Providers Care Retail Office Manager Name Role Phone Edmund Cope MD Primary Care Provider + Edmund Cope MD Unavailable [phone] Edmund Cope MD Primary Care Provider + Shannon Garcia NP Primary Care Provid er + Regulo Lundberg MD Unavailable + Carey Boyd Primary Care Provider [phone] Natasha Cerrato RN Unavailable Shanda Wilkinson MD Unavailable + Regulo Lundberg MD Unavailable + Shanda Wilkinson MD Unavailable + Shanda Wilkinson MD Unavailable [phone] Elicia Valentin Primary Care Provider [phone] Encounter Details Date Type Department Care Team (Late st Contact Info) Description 11/14/2019 Procedure Pass [facility], [facility] Scan - [facility] [address] [place], [place] [id number] Social History Tobacco Use Types Packs/Day Years [...] on filedocumented in this encounter Care Teams Retail Office Manager Relationship Specialty Start Date End Date Edmund Cope MD [email or web address] PCP - General Internal Medicine 05/16/17 01/07/20 Edmund Cope MD [email or web address] PCP - General Internal Medicine 01/08/20 02/14/20 Shannon Garcia NP [address] [place] [address] [email or web address] PCP - General Family Medicine 02/15/20 08/12/20 Carey Boyd PA [address] [place] [address] PCP - General Roofer Metal 08/13/20 04/23/25 Elicia Valentin PA [address] [place] [address] PCP - General Physician Window Shade Ring Coverer 04/24/25 Edmund Cope MD [address] [place] [address] [email or web address] Insurance Assigned Provider 09/19/19 04/19/20 Regulo Lundberg MD [address] [place] [address] Insurance Assigned Provider 04/19/20 09/20/20 Natasha Cerrato, RN [address] [place] [address] [email or web address] [facility] Debt Collector 08/14/20 08/31/20 Shanda Wilkinson MD [address] [place] [address] Insurance Assigned Provider 09/20/20 11/16/20 Regulo Lundberg MD [address] [place] [address] [email or web address] Insurance Assigned Provider 11/16/20 04/18/22 Shanda Wilkinson MD [address] [place] [address] 27[address] Insurance Assigned Provider 04/18/22 01/18/23 Shanda Wilkinson MD [address] [place] [address] [email or web address] Insurance Assigned Provider 04/18/22 02/19/23 documented as of this encounter Additional Source Comments The information contained in this document represents components of the legal health record. It is not the complete legal health record.[facility]
--- OUTSIDE RECORDS SUMMARY | 2025-06-04 08:40 | XMS_ITS | Encounter Summary ---
Author Organization [facility] Address [address] [facility] [address] [place] [address] Phone Care Team Providers Care Flyer Maker Name Role Phone Regulo Lundberg MD Unavailable [phone] Carey Boyd Primary Care Provider [phone] Natasha Cerrato RN Unavailable Shanda Wilkinson MD Unavailable Regulo Lundberg MD Unavailable Shanda Wilkinson MD Unavailable [phone] Shanda Wilkinson MD Unavailable Elicia Valentin Primary Care Provider [phone] Encounter Details Date Type Department Care Team (Late st Contact Info) Description 08/25/2020 Procedure Pass [facility] [address] [place] [address] Social History Tobacco Use Types [...] on filedocumented in this encounter Care Teams Flyer Maker Relationship Specialty Start Date End Date Carey Boyd PA [address] [place] [address] PCP - General Ceramic Artist 08/13/20 04/23/25 Elicia Valentin PA [address] [place] [address] PCP - General Physician Custom Car Builder 04/24/25 Regulo Lundberg MD [address] [place] [address] [email or web address] Insurance Assigned Provider 04/19/20 09/20/20 Natasha Cerrato RN [address] [place] [address] [email or web address] [facility] Assurance Engineer 08/14/20 08/31/20 Shanda Wilkinson MD [address] [place] [phone] Insurance Assigned Provider 09/20/20 11/16/20 Regulo Lundberg MD [address] [place] [address] [email or web address] Insurance Assigned Provider 11/16/20 04/18/22 Shanda Wilkinson MD [address] [place] [address] [email or web address] Insurance Assigned Provider 04/18/22 01/18/23 Shanda Wilkinson MD [address] [place] [address] [email or web address] Insurance Assigned Provider 04/18/22 02/19/23 documented as of this encounter Additional Source Comments The information contained in this document represents components of the legal health record. It is not the complete legal health record.[facility]
--- OUTSIDE RECORDS SUMMARY | 2025-06-04 08:40 | XMS_ITS | Encounter Summary ---
Author Organization [facility] Address [address] [facility] [address] [place] [address] Phone Care Team Providers Care Supervisor Dry Paste Name Role Phone Edmund Cope MD Primary Care Provider + Edmund Cope MD Unavailable [phone] Edmund Cope MD Primary Care Provider + Shannon Garcia NP Primary Care Provid er + Regulo Lundberg MD Unavailable + Carey Boyd Primary Care Provider [phone] Natasha Cerrato RN Unavailable Shanda Wilkinson MD Unavailable + Regulo Lundberg MD Unavailable + Shanda Wilkinson MD Unavailable + Shanda Wilkinson MD Unavailable [phone] Elicia Valentin Primary Care Provider [phone] Encounter Details Date Type Department Care Team (Late st Contact Info) Description 11/14/2019 Procedure Pass [facility], Ct Scan - [facility] [address] [place], [place] [id number] Social History Tobacco Use Types Packs/Day Years [...] filedocumented in this encounter Care Teams Supervisor Dry Paste Relationship Specialty Start Date End Date Edmund Cope MD [email or web address] PCP - General Internal Medicine 05/16/17 01/07/20 Edmund Cope MD [email or web address] PCP - General Internal Medicine 01/08/20 02/14/20 Shannon Garcia NP [address] [place] [address] [email or web address] PCP - General Family Medicine 02/15/20 08/12/20 Carey Boyd PA [address] [place] [address] PCP - General Monotype Mechanic 08/13/20 04/23/25 Elicia Valentin PA [address] [place] [address] PCP - General Physician Backup Administrative Coordinator 04/24/25 Edmund Cope MD [address] [place] [address] [email or web address] Insurance Assigned Provider 09/19/19 04/19/20 Regulo Lundberg MD [address] [place] [address] 24074 Insurance Assigned Provider 04/19/20 09/20/20 Natasha Cerrato, RN [address] [place] [address] [email or web address] [facility] Mortgage Clerk 08/14/20 08/31/20 Shanda Wilkinson MD [address] [place] [address]370 Insurance Assigned Provider 09/20/20 11/16/20 Regulo Lundberg MD [address] [place] [address] [email or web address] Insurance Assigned Provider 11/16/20 04/18/22 Shanda Wilkinson MD [address] [place] [address] 80284 Insurance Assigned Provider 04/18/22 01/18/23 Shanda Wilkinson MD [address] [place] [address] [email or web address] Insurance Assigned Provider 04/18/22 02/19/23 documented as of this encounter Additional Source Comments The information contained in this document represents components of the legal health record. It is not the complete legal health record.[facility]
--- OUTSIDE RECORDS SUMMARY | 2025-06-04 08:40 | XMS_ITS | Encounter Summary ---
Author Organization [facility] Address [address] [employer] [facility] [address] [place] [address] Phone Care Team Providers Care Stitcher Set Up Operator Automatic Name Role Phone Shannon Garcia NP Primary Care Provid er Regluo Lundberg MD Unavailable Carey Boyd Primary Care Provider [phone] Natasha Cerrato RN Unavailable Shanda Wilkinson MD Unavailable [phone] Regulo Lundberg MD Unavailable [phone] Shanda Wilkinson MD Unavailable [phone] Shanda Wilkinson MD Unavailable [phone] Elicia Valentin Primary Care Provider [phone] Encounter Details Date Type Department Care Team (Late st Contact Info) Description 07/30/2020 Procedure Pass [facility] Cardiology [address] [facility], [address] [place] [address] Social History Tobacco Use Types [...] on filedocumented in this encounter Care Teams Stitcher Set Up Operator Automatic Relationship Specialty Start Date End Date Shannon Garcia NP [address] [place] [address] [email or web address] PCP - General Family Medicine 02/15/20 08/12/20 Carey Boyd PA [address] [place] [address] PCP - General Car Cleaning Supervisor 08/13/20 04/23/25 Elicia Valentin PA [address] [place] [address] PCP - General Physician Rn Paralegal 04/24/25 Regulo Lundberg MD [address] [place] [phone] Insurance Assigned Provider 04/19/20 09/20/20 Natasha Cerrato, FRITZ [address] [place] [address] PHCM Sales Office Manager 08/14/20 08/31/20 Shanda Wilkinson MD [address] [place] [address] Insurance Assigned Provider 09/20/20 11/16/20 Regulo Lundberg MD [address] [place] [address] [email or web address] Insurance Assigned Provider 11/16/20 04/18/22 Shanda Wilkinson MD [address] [place] [address] [email or web address] Insurance Assigned Provider 04/18/22 01/18/23 Shanda Wilkinson MD [address] [place] [address] [email or web address] Insurance Assigned Provider 04/18/22 02/19/23 documented as of this encounter Additional Source Comments The information contained in this document represents components of the legal health record. It is not the complete legal health record.[facility]
--- OUTSIDE RECORDS SUMMARY | 2025-06-04 08:40 | XMS_ITS | Encounter Summary ---
Author Organization [facility] Address [address] [employer] [facility] [address] [place] [address] Phone Care Team Providers Care Postal Service Sectional Center Manager Name Role Phone Carey Boyd Primary Care Provider [phone] Regulo Lundberg MD Unavailable [phone] Shanda Wilkinson MD Unavailable [phone] Shanda Wilkinson MD Unavailable [phone] Elicia Valentin Primary Care Provider [phone] Encounter Details Date Type Department Care Team (Late st Contact Info) Description 10/29/2021 Procedure Pass [facility] [address] [place] [address] Social History Tobacco Use Types Packs/Day Years [...] on filedocumented in this encounter Care Teams Postal Service Sectional Center Manager Relationship Specialty Start Date End Date Carey Boyd PA [address] [place] [address] PCP - General Civil Engineering Project Manager 08/13/20 04/23/25 Elicia Valentin PA [address] [place] [address] PCP - General Physician Payroll Accounting Clerk 04/24/25 Regulo Lundberg MD [address] [place] [address] [email or web address] Insurance Assigned Provider 11/16/20 04/18/22 Shanda Wilkinson MD [address] [place] [address] Insurance Assigned Provider 04/18/22 01/18/23 Shanda Wilkinson MD [address] [place] [address] Insurance Assigned Provider 04/18/22 02/19/23 documented as of this encounter Additional Source Comments The information contained in this document represents components of the legal health record. It is not the complete legal health record.[facility]
--- OUTSIDE RECORDS SUMMARY | 2025-06-04 08:40 | XMS_ITS | Encounter Summary ---
Author Organization [facility] Address [address] [place] [address] Phone Care Team Providers Care Window Systems Administrator Name Role Phone Regulo Lundberg MD Unavailable Carey Boyd Primary Care Provider [phone] Natasha Cerrato RN Unavailable Shanda Wilkinson MD Unavailable [phone] Regulo Lundberg MD Unavailable [phone] Shanda Wilkinson MD Unavailable [phone] Shanda Wilkinson MD Unavailable [phone] Elicia Valentin Primary Care Provider [phone] Encounter Details Date Type Department Care Team (Late st Contact Info) Description 08/18/[address] [facility] [address] [facility], [address] [place] [address] Social History Tobacco Use Types [...] on filedocumented in this encounter Care Teams Window Systems Administrator Relationship Specialty Start Date End Date Carey Boyd PA [address] [place] [address] PCP - General Objects Conservator 08/13/20 04/23/25 Elicia Valentin PA [address] [place] [address] PCP - General Physician Ultra Sound Technician 04/24/25 Regulo Lundberg MD [address] [place] [address] [email or web address] Insurance Assigned Provider 04/19/20 09/20/20 Natasha Cerrato RN [address] [place] [address] PHC Air Drier Machine Operator 08/14/20 08/31/20 Shanda Wilkinson MD [address] [place] [address] Insurance Assigned Provider 09/20/20 11/16/20 Regulo Lundberg MD [address] [place] [address] [email or web address] Insurance Assigned Provider 11/16/20 04/18/22 Shanda Wilkinson MD [address] [place] [address] [email or web address] Insurance Assigned Provider 04/18/22 01/18/23 Shanda Wilkinson MD [address] [place] [address] [email or web address] Insurance Assigned Provider 04/18/22 02/19/23 documented as of this encounter Additional Source Comments The information contained in this document represents components of the legal health record. It is not the complete legal health record.[facility]
--- OUTSIDE RECORDS SUMMARY | 2025-06-04 08:40 | XMS_ITS | Encounter Summary ---
Author Organization [facility] Address [address] [facility] [address] [place] [address] Phone Care Team Providers Care Cheesemaker Name Role Phone Shannon Garcia NP Primary Care Provid er Regulo Lundberg MD Unavailable [phone] Carey Boyd Primary Care Provider [phone] Natasha Cerrato RN Unavailable Shanda Wilkinson MD Unavailable Regulo Lundberg MD Unavailable [phone] Shanda Wilkinson MD Unavailable [phone] Shanda Wilkinson MD Unavailable Elicia Valentin Primary Care Provider [phone] Encounter Details Date Type Department Care Team (Late st Contact Info) Description 05/28/2020 Procedure Pass [facility], [address] [id number] Social History Tobacco Use Types Packs/Day Years [...] on filedocumented in this encounter Care Teams Cheesemaker Relationship Specialty Start Date End Date Shannon Garcia NP [address] [place] [address] [email or web address] PCP - General Family Medicine 02/15/20 08/12/20 Carey Boyd PA [address] [place] [address] PCP - General Special Education Classroom Aide 08/13/20 04/23/25 Elicia Valentin PA [address] [place] [address] PCP - General Physician Leather Staker 04/24/25 Regulo Lundberg MD [address] [place] [address] Insurance Assigned Provider 04/19/20 09/20/20 Natasha Cerrato, FRITZ [address] [place] [address] PHCM Franchise Consultant 08/14/20 08/31/20 Shanda Wilkinson MD [address] [place] [address] 113[address] Insurance Assigned Provider 09/20/20 11/16/20 Regulo Lundberg MD [address] [place] [address] [email or web address] Insurance Assigned Provider 11/16/20 04/18/22 Shanda Wilkinson MD [address] [place] [address] [email or web address] Insurance Assigned Provider 04/18/22 01/18/23 Shanda Wilkinson MD [address] [place] [address] [email or web address] Insurance Assigned Provider 04/18/22 02/19/23 documented as of this encounter Additional Source Comments The information contained in this document represents components of the legal health record. It is not the complete legal health record.[facility]
--- OUTSIDE RECORDS SUMMARY | 2025-06-04 08:40 | XMS_ITS | Encounter Summary ---
Author Organization [facility] Address [address] [facility] [address] [place] [address] Phone Care Team Providers Care Antenna Engineer Name Role Phone Edmund Cope MD Primary Care Provider + Edmund Cope MD Unavailable [phone] Edmund Cope MD Primary Care Provider + Shannon Garcia NP Primary Care Provid er + Regulo Lundberg MD Unavailable + Carey Boyd Primary Care Provider [phone] Natasha Cerrato RN Unavailable Shanda Wilkinson MD Unavailable + Regulo Lundberg MD Unavailable + Shanda Wilkinson MD Unavailable + Shanda Wilkinson MD Unavailable + Elicia Valentin Primary Care Provider [phone] Encounter Details Date Type Department Care Team (Latest Contact Info) Description 10/25/2019 Transcribe Orders [facility] [address] [place] [address] Dalton Leone, [address] [place] [address] [email or web address] Screening for unspecified condition (Primary [...] Primary documented in this encounter Care Teams Antenna Engineer Relationship Specialty Start Date End Date Edmund Cope MD [email or web address] PCP - General Internal Medicine 05/16/17 01/07/20 Edmund Cope MD [email or web address] PCP - General Internal Medicine 01/08/20 02/14/20 Shannon Garcia NP [address] [place] [address] [email or web address] PCP - General Family Medicine 02/15/20 08/12/20 Carey Boyd PA [address] [place] [address] PCP - General Driver Operator 08/13/20 04/23/25 Elicia Valentin PA [address] [place] [address] PCP - General Physician Deli/Bakery Associate 04/24/25 Edmund Cope MD [address] [place] [address] [email or web address] Insurance Assigned Provider 09/19/19 04/19/20 Regulo Lundberg MD [address] [place] [place] [address] [email or web address] Insurance Assigned Provider 04/19/20 09/20/20 Natasha Cerrato RN [address] [place] [address] [email or web address] Radiology Practitioner Assistant 08/14/20 08/31/20 Shanda Wilkinson MD [address] [place] [address] [email or web address] Insurance Assigned Provider 09/20/20 11/16/20 Regulo Lundberg MD [address] [place] [place] [address] [email or web address] Insurance Assigned Provider 11/16/20 04/18/22 Shanda Wilkinson MD [address] [place] [place] [address] 94902 Insurance Assigned Provider 04/18/22 01/18/23 Shanda Wilkinson MD [address] [place] [address] 8[address] Insurance Assigned Provider 04/18/22 02/19/23 documented as of this encounter Additional Source Comments The information contained in this document represents components of the legal health record. It is not the complete legal health record.[facility]
--- OUTSIDE RECORDS SUMMARY | 2025-06-04 08:40 | XMS_ITS | Encounter Summary ---
Author Organization [facility] Address [address] [facility] [address] [place] [address] Phone Care Team Providers Care Receiving Supervisor Name Role Phone Edmund Cope MD Primary Care Provider + Edmund Cope MD Unavailable [phone] Edmund Cope MD Primary Care Provider + Shannon Garcia NP Primary Care Provid er + Regulo Lundberg MD Unavailable + Carey Boyd Primary Care Provider [phone] Natasha Cerrato RN Unavailable Shanda Wilkinson MD Unavailable + Regulo Lundberg MD Unavailable + Shanda Wilkinson MD Unavailable + Shanda Wilkinson MD Unavailable + Elicia Valentin Primary Care Provider [phone] Encounter Details Date Type Department Care Team (Late st Contact Info) Description 11/20/2019 Procedure Pass [facility] [address] [place] [address] Social History Tobacco Use Types [...] on filedocumented in this encounter Care Teams Receiving Supervisor Relationship Specialty Start Date End Date Edmund Cope MD PCP - General Internal Medicine 05/16/17 01/07/20 Edmund Cope MD PCP - General Internal Medicine 01/08/20 02/14/20 Shannon Garcia NP [address] [place] [address] [email or web address] PCP - General Family Medicine 02/15/20 08/12/20 Carey Boyd PA [address] [place] [address] PCP - General Nremt 08/13/20 04/23/25 Elicia Valentin PA [address] [place] [address] PCP - General Physician Food And Beverage Assistant Manager 04/24/25 Edmund Cope MD [address] [place] [address] Insurance Assigned Provider 09/19/19 04/19/20 Regulo Lundberg MD [address] [place] [address] Insurance Assigned Provider 04/19/20 09/20/20 Natasha Cerrato, FRITZ [address] [place] [address] [facility] Assistant Women'S Tennis Coach 08/14/20 08/31/20 Shanda Wilkinson MD [address] [place] [address] Insurance Assigned Provider 09/20/20 11/16/20 Regulo Lundberg MD [address] [place] [address] 10836 Insurance Assigned Provider 11/16/20 04/18/22 Shanda Wilkinson MD [address] [place] [address] 85402 Insurance Assigned Provider 04/18/22 01/18/23 Shanda Wilkinson MD [address] [place] [address] [phone] Insurance Assigned Provider 04/18/22 02/19/23 documented as of this encounter Additional Source Comments The information contained in this document represents components of the legal health record. It is not the complete legal health record.[facility]
[2025-06-04 08:41] VITALS: BMI 24.6
--- NOTE | 2025-06-04 08:41 | A.OFFVIS_ITS ---
Vital Signs 06/04/25 08:41 Height 5 ft 5 in Weight 148 lb BMI 24.6 Intake Visit Reasons: pre op Intake Note: Ivan is a 35 year old female who presents today for a pre op appointment. Patient reports she is doing well however she is still experiencing pain in her left ankle. She has no questions or concerns at this time. Allergies scallops Allergy (Unknown, Verified 06/04/25 08:43) Unknown Gabapentin Allergy (Unknown, Uncoded 05/16/25 09:25) neurologic side effects HPI HPI pre op: Details: The patient is a 34-year-old female presenting for 1 month follow up evaluation of left ankle sprain. She consulted with her surgeon in [place] who is hesitant for another provider to perform a revision surgery due to concerns for a future total ankle replacement, and she plans to proceed care with that surgeon. She completed physical therapy. No new ankle sprains or injuries since her last visit. She notes overall improvement in her midfoot and ankle, still having discomfort to the side of her left ankle. She currently uses a lace-up brace for support on days when her ankle feels fatigued. History: The patient notes history of her most recent left ankle sprain that occurred the week of 03/04 after stepping off of her horse. She was seen at the emergency room at [place] and received x-rays which were deemed to be negative for fractures. She was discharged in a cam boot. Patient notes she typically rolls her ankle 1-2 times per week. The patient has undergone multiple imaging studies, including an MRI in 2022, which showed normal findings despite clinical laxity and instability. She states that she has to wear an AFO brace which helped her during her rehab however she has not worn it for a few years. She does not use any ankle support or brace due to them not fitting in her shoes. 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 A tightrope procedure was attempted but failed, leading to [place] Z le [place]thening of [place] with [place] [facility] [place] Additionally, the patient sustained a Lisfranc fracture in the same foot during rehabilitation, which was managed with pinning and subsequent hardware removal in 2020. The patient reports persistent pain and weakness in the left big toe joint, exacerbated by activities that require her to push off of her big toe joint, such as lunges and weighted exercises. She attributed to loss of muscle tone and strength under the foot. Last appointment with her previous surgeon Dr. Pineda 02/16/2023 where a repeat MRI showed some concern for medial talar OCD lesion and recommended PT at the time. Surgical History: - 12/2017: Left ankle ORIF with NEOS - 06/2018: Left ankle AMELIE, arthroscopy, syndesmosis tight-rope - 11/20/2019: Left ankle OCD repair with biocartilage (1.25cm x 1.5cm), fibular osteotomy, CP/SPF/Sural nerve decompression, syndesmotic fusion, brostrom repair ATFL/CFL (Arthrex Pushlock [place]), peroneal tendon tenosynovectomy. - 08/25/2020: ORIF Left lisfranc fracture with Dr. Pineda - 01/27/2021: left ankle/foot removal of hardware Social History: - Employment: [employer] [place]. - Exercise: Engages in activities such as lunges and weighted exercises, rides horses, and plays tennis three times a week [facility] Medical History Undifferentiated connective tissue disease Ankle sprain Hyperlipidemia Breast lump Triceps tendon rupture Overweight with body mass index (BMI) of 26 to 26.9 in adult Injury of left elbow Annual physical exam Hyperlipidemia with target low density lipoprotein (LDL) cholesterol less than 100 mg/dL Vitamin D deficiency Small fiber neuropathy Fracture of distal end of left fibula Multiple joint pain Postural orthostatic tachycardia syndrome PTSD (post-traumatic stress disorder) Selective immunoglobulin M deficiency Monoclonal gammopathy Channing's thyroiditis Surgical History S/P hardware removal S/P right rotator cuff repair S/P posterior Bankart repair of right shoulder Family History Paternal Grandfather Malignant carcinoid tumor of lung Mother Thyroid nodule Malignant tumor of thyroid gland Social History Household Members: None Housing: Apartment Patient Tobacco Use Status: Former Tobacco user Tobacco use type: Cigarette service: No Current occupational status: employed Cognitive needs: No Hearing needs: No Vision needs: No Review of Systems Const All systems reviewed & are unremarkable except as noted in HPI and below Physical Exam Vital Signs: BMI result Body Mass Index 24.6 Extrem Other: *Bilateral Lower Extremity Focused Exam Vascular: DP/PT 2/4, CFT<3s to digits, TG warm to cool, mild left lateral and anterior ankle edema. No pedal edema. Derm: No ecchymosis over the lateral aspect of the ankle, anterior ankle, and dorsal foot. Healed surgical incisions along the medial and lateral ankle. Neuro: Protective sensation grossly intact to bilateral lower extremities. MSK: Left lower extremity: Minimal tenderness on palpation of the ATFL over the lateral ankle and the lateral gutter. Mild tenderness along the peroneal tendons posterior retromalleolar fibula, no longer radiating proximally. No tenderness retromalleolar medial tibia. Ankle inversion 3:1 bilaterally. Ankle dorsiflexion 0 degrees 2/2 rigid block. On weight-bearing, ankle dorsiflexion -5 degrees closed chain. Minimal tenderness on palpation along the 1st tarsometatarsal joint. No tenderness on palpation along the medial aspect and plantar aspect of the 1st metatarsal shaft on push-off stance currently. Left 1st Metatarsal-phalangeal joint dorsiflexion 80 degrees. Tracking hallux valgus deformity with prominent medial eminence. Mild tenderness on Roberto's test of the 2nd Metatarsal-phalangeal joint and to palpation of the plantar sulcus. No pain to the plantar sulcus or Roberto's test of the 1st and 3rd digits. No pain on palpation of the sesamoids. Results Reviewed Results Reviewed: MRI left ankle 05/13/2025 IMPRESSION: There is a 5 x 13 mm full-thickness articular cartilage defects involving the medial shoulder of the talar dome with mild flattening and thinning of the subchondral bone plate and mild reactive marrow signal. Small mildly complex effusion involving the talotibial joint. Surgically fused syndesmosis. Age-indeterminate grade 2 sprain of anterior and posterior talofibular ligaments and grade 1 sprain of the calcaneofibular ligament. Chronic versus acute/subacute on chronic. Moderate osteoarthritis of the first tarsometatarsal joint. MRI left foot 05/13/2025: IMPRESSION: Age-indeterminate first plantar plate abnormality: The central fibrocartilage of the plantar plate complex is thickened and irregular. Age-indeterminate second plantar plate abnormality: The central fibrocartilage of the plantar plate complex is mildly lax and elevated at the base of the second proximal phalanx. There is mildly increased synovial fluid. Hallux valgus deformity. Moderate osteoarthritis of the first tarsometatarsal joint. Borderline increased synovial fluid in the fourth MTP joint. 03/26/2025 X-ray left foot 3 views (AP, MO, Lateral) weight-bearing reviewed which shows ossified bone within the 1st interspace between the 1st metatarsal and the 2nd metatarsal base, with no diastasis with the 2nd metatarsal. First tarsometatarsal joint and 3rd tarsometatarsal joint have severe joint space narrowing. Second tarsometatarsal joint has moderate asymmetric joint space narrowing. Miranda's angle appears within normal limits on lateral view. Bone density is within normal limits. Normal anatomy. No evidence of swelling, foreign body, or calcifications. I personally reviewed the imaging and my findings are listed above. 03/26/2025 X-ray left ankle 3 views (AP, Mortise, Lateral) weight-bearing reviewed which shows varus tilt of the ankle joint, talocrural angle of 74 degrees. Syndesmotic fusion with retained screws/foreign body in the tibia at the level of the syndesmosis 2.5 cm from the ankle joint. No significant tibiotalar joint narrowing. Bone density is within normal limits. I personally reviewed the imaging and my findings are listed above. 03/26/2025 X-ray left calcaneus 3 views (Axial, Lateral) weightbearing reviewed which shows approximately 8 degrees of hindfoot varus. Subtalar joint space within normal limits. I personally reviewed the imaging and my findings are listed above. 03/05/2025 X-ray left ankle 3 views (AP, Mortise, Lateral) reviewed which shows no fractures, dislocations, osteochondral defects. Foreign body/partial screw present in the syndesmotic region of the tibia. Synostosis of the tibia and fibula at the level of the syndesmosis. Anatomic alignment of the tibiotalar joint. Mild joint space narrowing of the calcaneocuboid joint. Bone density is within normal limits. No evidence of swelling, foreign body, or calcifications. I personally reviewed the imaging and my findings are listed above. 03/05/2025 X-ray left foot 3 views (AP, Mortise, Lateral) reviewed which shows no fractures, dislocations, osteochondral defects. There is mild diastasis of the 1st and 2nd metatarsal bases, measuring 1.89 mm from medial cuneiform to the 2nd metatarsal base. Moderate joint space narrowing of the 1st , 2nd, and 3rd tarsometatarsal joints. Mild narrowing of the 1st Metatarsal-phalangeal joint with flattening of the medial eminence and mild cystic changes. First metatarsal IM angle is 11. Tibial sesamoid position is 4. I personally reviewed the imaging and my findings are listed above. Assessment & Plan Assessment & Plan (1) Ankle ligament laxity: Code(s): M24.273 - Disorder of ligament, unspecified ankle Category: Medical Qualifiers: Laterality: left Qualified Code(s): M24.272 - Disorder of ligament, left ankle Plan: * Recommended continuing treatment plan with her previous surgeon at [place] for continuum of care. * Flexion [place] [facility] [place] requested by [place] surgeon. * The patient should continue to use her lace-up brace for support as needed. * Differential diagnosis includes subtalar joint instability. (2) Arthritis of foot, left: Code(s): M19.072 - Primary osteoarthritis, left ankle and foot Category: Medical Plan: * No further lisfranc diastasis on weight-bearing x-rays. * Discussed that her symptoms for her midfoot and forefoot pain may be related to her Lisfranc joint arthritis versus medial column overload/compensation due to her rigid ankle rocker. * Discussed treatment options including cortisone injection vs regenerative medicine options (PRP, etc.) for her midfoot arthritis. * She may benefit from a 1st TMT fusion. * The midfoot pain is a secondary issue that may become more prominent after the ankle is stabilized. * We will trial a custom foot orthosis with a first ray cut-out for her 1st TMT arthritis after lateral ankle stabilization. (3) Osteochondral defect of talus: Code(s): M95.8 - Other specified acquired deformities of musculoskeletal system Category: Medical Plan: * Lesion size as per her medical records was 1.25cm x 1.5cm. New MRI: 5 x 13mm, minimal reactive marrow signal (4) Peroneal tendonitis of left lower extremity: Code(s): M76.72 - Peroneal tendinitis, left leg Category: Medical Plan: * MRI negative for any tendon tears. Orders: Orders XR ankle LT min 3V 06/07/25 M24.272 - Disorder of ligament, left ankle, S93.492A - Sprain of other ligament of left ankle, initial encounter Coding Level of Care Code Est Pt Level 3 (01230) Diagnoses Ligamentous laxity of left ankle M24.272 Laterality: left Arthritis of foot, left M19.072 Osteochondral defect of talus M95.8 Peroneal tendonitis of left lower extremity M76.72 Time Spent (min) 25
--- OUTSIDE RECORDS SUMMARY | 2025-06-04 08:41 | XMS_ITS | Encounter Summary ---
Author Organization [facility] Address [address] [facility] [address] [place] [address] Phone Care Team Providers Care Hospital Receptionist Name Role Phone Edmund Cope MD Unavailable [phone] Shannon Garcia NP Primary Care Provid er Regulo Lundberg MD Unavailable Carey Boyd Primary Care Provider [phone] Natasha Cerrato RN Unavailable Shanda Wilkinson MD Unavailable Regulo Lundberg MD Unavailable [phone] Shanda Wilkinson MD Unavailable [phone] Shanda Wilkinson MD Unavailable [phone] Elicia Valentin Primary Care Provider Reason for Referral * Outpatient Procedure - Closed Specialty Diagnoses / Procedures Referred By Meche t Referred To Contact Radiology Diagnoses Nausea Vomiting without nausea, intractability of vomiting not specified, unspecified vomiting type Abnormal weight loss Procedures NM Gastric Emptying Moise Gomez MD Phone: tel: fax: [email or web address] Referral ID Status Reason Start Date Expiration Date Visits Re quested Visits Authorized [id number] Closed 03/11/2020 03/11/2021 1 1 Encounter Details Date Type Department Care Team (Latest Contact Info) Description 03/11/2020 Transcribe Orders Virtual Department [address] [place] [address] Moise Gomez MD [address] [address] [email or web address] Nausea (Primary Dx); Vomiting without [...] activity is still present in the stomach (irumek63-28%) At two hours 45% of activity is still present in the stomach (pmneuj64-59%) At four hours is 2.5% of activity is still present in the stomach (normal0-10%) IMPRESSION: Normal gastric emptying. POS - [id number] Moise Gomez MD IMG MI ABDOMEN Final Result documented in this encounter Visit Diagnoses Diagnosis Nausea- Primary Nausea alone Vomiting without nausea, intractability of vomiting not specified, unspecified vomiting type Abnormal weight loss Loss of weight Nausea Nausea alone Vomiting without nausea, intractability of vomiting not specified, unspecified vomiting type Abnormal weight loss Loss of weight documented in this encounter Care Teams Hospital Receptionist Relationship Specialty Start Date End Date Shannon Garcia NP [address] [place] [address] [email or web address] PCP - General Family Medicine 02/15/20 08/12/20 Carey Boyd PA [address] [place] [address] PCP - General Dairy Technician 08/13/20 04/23/25 Elicia Valentin PA [address] [place] [address] PCP - General Physician Director Process Engineering 04/24/25 Edmund Cope MD [address] [place] [address] [email or web address] Insurance Assigned Provider 09/19/19 04/19/20 Regulo Lundberg MD [address] [place] [address] [email or web address] Insurance Assigned Provider 04/19/20 09/20/20 Natasha Cerrato RN [address] [place] [address] [email or web address] Supervisor Mold Cleaning And Storage 08/14/20 08/31/20 Shanda Wilkinson MD [address] [place] [address] [email or web address] Insurance Assigned Provider 09/20/20 11/16/20 Regulo Lundberg MD [address] [place] [address] [email or web address] Insurance Assigned Provider 11/16/20 04/18/22 Shanda Wilkinson MD [address] [place] [address] [email or web address] Insurance Assigned Provider 04/18/22 01/18/23 Shanda Wilkinson MD [address] [place] [address] [email or web address] Insurance Assigned Provider 04/18/22 02/19/23 documented as of this encounter Additional Source Comments The information contained in this document represents components of the legal health record. It is not the complete legal health record.[facility]
--- OUTSIDE RECORDS SUMMARY | 2025-06-04 08:41 | XMS_ITS | Encounter Summary ---
Author Organization [facility] Address [address] [place] [address] Phone Care Team Providers Care Search Engine Optimization Specialist Name Role Phone Elicia Valentin Primary Care Provider [phone] Encounter Details Date Type Department Care Team (Late st Contact Info) Description 05/21/2025 Orders Only [facility] Orthopaedic Surgery Foot [facility] Ankle Service [address], [address] [place] [address] Ludy Morales [address] [place] [address] [email or web address] Pain (Primary Dx) Social History Tobacco Use Types [...] of this encounter Plan of Treatment Scheduled Orders Name Type Priority Associated Diagnoses Orde r Schedule XR Foot (Left) Imaging Routine Pain Expected: 05/21/2025, Expires: 05/21/2026 XR Ankle (Left) Imaging Routine Pain Expected: 05/21/2025, Expires: 05/21/2026 documented as of this encounter Visit Diagnoses Diagnosis Pain- Primary Generalized pain documented in this encounter Care Teams Search Engine Optimization Specialist Relationship Specialty Start Date End Date Elicia Valentin PA [address] [place] [address] PCP - General Physician Bridge Manager 04/24/25 documented as of this encounter Additional Source Comments The information contained in this document represents components of the legal health record. It is not the complete legal health record.[facility]
--- OUTSIDE RECORDS SUMMARY | 2025-06-04 08:41 | XMS_ITS | Encounter Summary ---
Author Organization [facility] Address [address] [facility] [address] [place] [address] Phone Care Team Providers Care Mental Health Aide Name Role Phone Edmund Cope MD Primary Care Provider + Edmund Cope MD Unavailable + [phone] dEmund Cope MD Primary Care Provider + Shannon Garcia NP Primary Care Provid er + Regulo Lundberg MD Unavailable + Carey Boyd Primary Care Provider + Natasha Cerrato RN Unavailable Shanda Wilkinson MD Unavailable + Regulo Lundberg MD Unavailable + Shanda Wilkinson MD Unavailable + Shanda Wilkinson MD Unavailable + Elicia Valentin Primary Care Provider [phone] Reason for Referral * Physical Therapy (Routine) - Closed Specialty Diagnoses / Procedures Referred By Contac t Referred To Contact Physical Therapy Diagnoses Encounter for rehabilitation Left Ankle Procedures Evaluate & Treat Guillermo Pineda MD Phone: tel: fax: [email or web address] [facility] [address] [place] [address] Phone: tel: Referral ID Status Reason Start Date Expiration Date Visits Re quested Visits Authorized [id number] Closed 12/06/2019 06/12/2020 20 20 Encounter Details Date Type Department Care Team (Latest Contact Info) Description 12/06/2019 Transcribe Orders [facility] [address] [place] [address] Guillermo Pineda MD [address] [facility] 2ND [place] [address] [email or web address] Encounter for rehabilitation (Primary Dx) Social History [...] Orde r Schedule Ambulatory referral to [facility] Physical Therapy Outpatient Referral Routine Encounter for rehabilitation Ordered: 12/06/2019 documented as of this encounter Visit Diagnoses Diagnosis Encounter for rehabilitation- Primary documented in this encounter Care Teams Mental Health Aide Relationship Specialty Start Date End Date Edmund Cope MD PCP - General Internal Medicine 05/16/17 01/07/20 Edmund Cope MD PCP - General Internal Medicine 01/08/20 02/14/20 Shannon Garcia, RICARDO [address] [place] [address] [email or web address] PCP - General Family Medicine 02/15/20 08/12/20 Carey Boyd PA [address] [place] [address] PCP - General Metal Model Builder 08/13/20 04/23/25 Elicia Valentin PA [address] [place] [address] PCP - General Physician Process Improvement Engineer 04/24/25 Edmund Cope MD [address] [place] [address] Insurance Assigned Provider 09/19/19 04/19/20 Regulo Lundberg MD [address] [place] [address] Insurance Assigned Provider 04/19/20 09/20/20 Natasha Cerrato, FRITZ [address] [place] [address] PHC Mat Sewer 08/14/20 08/31/20 Shanda Wilkinson MD [address] [place] [address] [email or web address] Insurance Assigned Provider 09/20/20 11/16/20 Regulo Lundberg MD [address] [place] [address] [email or web address] Insurance Assigned Provider 11/16/20 04/18/22 Shanda Wilkinson MD [address] [place] [address] [email or web address] Insurance Assigned Provider 04/18/22 01/18/23 Shanda Wilkinson MD [address] [place] [address] [email or web address] Insurance Assigned Provider 04/18/22 02/19/23 documented as of this encounter Additional Source Comments The information contained in this document represents components of the legal health record. It is not the complete legal health record.[facility]
--- OUTSIDE RECORDS SUMMARY | 2025-06-04 08:41 | XMS_ITS | Encounter Summary ---
Author Organization [facility] Address [address] [facility] [place] [address] Phone Care Team Providers Care Building And Grounds Supervisor Name Role Phone Regulo Lundberg MD Unavailable Carey Boyd Primary Care Provider [phone] Shanda Wilkinson MD Unavailable Regulo Lundberg MD Unavailable Shanda Wilkinson MD Unavailable Shanda Wilkinson MD Unavailable Elicia Valentin Primary Care Provider [phone] Encounter Details Date Type Department Care Team (Late st Contact Info) Description 09/08/2020 Ancillary Orders [facility] [address] [facility], 3rd Floor, [address] [place] [address] Ruiz Sauer PA-C [address] [place] [address] [email or web address] Pain Social History Tobacco Use [...] from fixation of the medial midfoot. ATTESTATION: Dr. Timothy Santo as teaching physician, have reviewed the images [...] from fixation of the medial midfoot. ATTESTATION: Dr. Timothy Santo as teaching physician, have reviewedthe images for this case and if necessary edited the report originallycreated by Dr. Wesley Jimenes. us Ruiz Sauer PA-C IMG XR LOWER EXTREMITY Fin al Result documented in this encounter Visit Diagnoses Diagnosis Pain Generalized pain Pain Generalized pain documented in this encounter Care Teams Building And Grounds Supervisor Relationship Specialty Start Date End Date Carey Boyd PA [address] [place] [address] PCP - General Human Resources Benefits Administrator 08/13/20 04/23/25 Elicia Valentin PA [address] [place] [address] PCP - General Physician Trust Operations Assistant 04/24/25 Regulo Lunbderg MD [address] [place] [address] [email or web address] Insurance Assigned Provider 04/19/20 09/20/20 Shanda Wilkinson MD [address] [place] [address] Insurance Assigned Provider 09/20/20 11/16/20 Regulo Lundberg MD [address] [place] [address] [email or web address] Insurance Assigned Provider 11/16/20 04/18/22 Shanda Wilkinson MD [address] [place] [address] [email or web address] Insurance Assigned Provider 04/18/22 01/18/23 Shanda Wilkinson MD [address] [place] [address] [email or web address] Insurance Assigned Provider 04/18/22 02/19/23 documented as of this encounter Additional Source Comments The information contained in this document represents components of the legal health record. It is not the complete legal health record.[facility]
--- OUTSIDE RECORDS SUMMARY | 2025-06-04 08:41 | XMS_ITS | Encounter Summary ---
Author Organization [facility] Address [address] [facility] [address] [place] [address] Phone Care Team Providers Care Telecommunication Tower Technician Name Role Phone Edmund Cope MD Primary Care Provider + Edmund Cope MD Unavailable [phone] Edmund Cope MD Primary Care Provider + Shannon Garcia NP Primary Care Provid er + Regulo Lundberg MD Unavailable + Carey Boyd Primary Care Provider [phone] Natasha Cerrato RN Unavailable Shanda Wilkinson MD Unavailable + Regulo Lundberg MD Unavailable + Shanda Wilkinson MD Unavailable + Shanda Wilkinson MD Unavailable + Elicia Valentin Primary Care Provider [phone] Encounter Details Date Type Department Care Team (Late st Contact Info) Description 01/04/2020 Procedure Pass [facility], [facility] [address] [place] [address] Social History Tobacco Use Types Packs/Day Years [...] on filedocumented in this encounter Care Teams Telecommunication Tower Technician Relationship Specialty Start Date End Date Edmund Cope MD [email or web address] PCP - General Internal Medicine 05/16/17 01/07/20 Edmund Cope MD [email or web address] PCP - General Internal Medicine 01/08/20 02/14/20 Shannon Garcia NP [address] [place] [address] [email or web address] PCP - General Family Medicine 02/15/20 08/12/20 Carey Boyd PA [address] [place] [address] PCP - General Denial Management Representative 08/13/20 04/23/25 Elicia Valentin PA [address] [place] [address] PCP - General Physician Forest Patrolman 04/24/25 Edmund Cope MD [address] [place] [phone] Insurance Assigned Provider 09/19/19 04/19/20 Regulo Lundberg MD [address] [place] [phone] Insurance Assigned Provider 04/19/20 09/20/20 Natasha Cerrato, RN [address] [place] [address] [facility] Launch Manager 08/14/20 08/31/20 Shanda Wilkinson MD [address] [place] [phone] Insurance Assigned Provider 09/20/20 11/16/20 Regulo Lundberg MD [address] [place] [address] Insurance Assigned Provider 11/16/20 04/18/22 Shanda Wilkinson MD [address] [place] [phone] Insurance Assigned Provider 04/18/22 01/18/23 Shanda Wilkinson MD [address] [place] [phone] Insurance Assigned Provider 04/18/22 02/19/23 documented as of this encounter Additional Source Comments The information contained in this document represents components of the legal health record. It is not the complete legal health record.[facility]
--- OUTSIDE RECORDS SUMMARY | 2025-06-04 08:41 | XMS_ITS | Encounter Summary ---
Author Organization [facility] Address [address] [facility] [address] [place] [address] Phone Care Team Providers Care Hand Alterations Seamstress Name Role Phone Edmund Cope MD Unavailable [phone] Shannon Garcia NP Primary Care Provid er Regulo Lundberg MD Unavailable Carey Boyd Primary Care Provider [phone] Natasha Cerrato RN Unavailable Shanda Wilkinson MD Unavailable [phone] Regulo Lundberg MD Unavailable [phone] Shanda Wilkinson MD Unavailable Shanda Wilkinson MD Unavailable Elicia Valentin Primary Care Provider [phone] Encounter Details Date Type Department Care Team (Late st Contact Info) Description 02/20/2020 Procedure Pass [facility], Ct Scan - [facility] [address] [place], [place] [id number] Social History Tobacco Use Types Packs/Day Years [...] filedocumented in this encounter Care Teams Hand Alterations Seamstress Relationship Specialty Start Date End Date Shannon Garcia NP [address] [place] [address] [email or web address] PCP - General Family Medicine 02/15/20 08/12/20 Carey Boyd PA [address] [place] [address] PCP - General Administrator 08/13/20 04/23/25 Elicia Valentin PA [address] [place] [address] PCP - General Physician Tire Fabric Inspector 04/24/25 Edmund Cope MD [address] [place] [address] [email or web address] Insurance Assigned Provider 09/19/19 04/19/20 Regulo Lundberg MD [address] [place] [address] Insurance Assigned Provider 04/19/20 09/20/20 Natasha Cerrato RN [address] [place] [address] PHCM Waist Cutter 08/14/20 08/31/20 Shanda Wilkinson MD [address] [place] [address] [email or web address] Insurance Assigned Provider 09/20/20 11/16/20 Regulo Lundberg MD [address] [place] [address] [email or web address] Insurance Assigned Provider 11/16/20 04/18/22 Shanda Wilkinson MD [address] [place] [address] [email or web address] Insurance Assigned Provider 04/18/22 01/18/23 Shanda Wilkinson MD [address] [place] [address] [email or web address] Insurance Assigned Provider 04/18/22 02/19/23 documented as of this encounter Additional Source Comments The information contained in this document represents components of the legal health record. It is not the complete legal health record.[facility]
--- OUTSIDE RECORDS SUMMARY | 2025-06-04 08:41 | XMS_ITS | Encounter Summary ---
Author Organization [facility] Address [address] [facility] [address] [place] [address] Phone Care Team Providers Care Enterprise Application Architect Name Role Phone Edmund Cope MD Primary Care Provider + Edmund Cope MD Unavailable + [phone] Edmund Cope MD Primary Care Provider + Shannon Garcia NP Primary Care Provid er + Regulo Lundberg MD Unavailable + Carey Boyd Primary Care Provider + Natasha Cerrato RN Unavailable Shanda Wilkinson MD Unavailable + Regulo Lundberg MD Unavailable + Shanda Wilkinson MD Unavailable + Sahnda Wilkinson MD Unavailable + Elicia Valentin Primary Care Provider [phone] Reason for Referral * MRI/CAT Scan - Closed Specialty Diagnoses / Procedures Referred By Contac t Referred To Contact Radiology Diagnoses Multiple joint pain Arthralgia, unspecified joint Procedures MRI Hand (Right) Clay Cavazos MD Phone: tel: fax: Referral ID Status Reason Start Date Expiration Date Visits Re quested Visits Authorized [id number] Closed 01/21/2020 07/19/2020 1 1 * MRI/CAT Scan - Closed Specialty Diagnoses / Procedures Referred By Contac t Referred To Contact Radiology Diagnoses Multiple joint pain Arthralgia, unspecified joint Procedures MRI Hand (Left) Clay Cavazos MD Phone: tel: fax: Referral ID Status Reason Start Date Expiration Date Visits Re quested Visits Authorized [id number] Closed 01/03/2020 03/06/2020 1 1 Encounter Details Date Type Department Care Team (Latest Contact Info) Description 01/04/2020 Transcribe Orders Virtual Department [address] [place] [address] Clay Cavazos MD [address] [place] [address] Multiple joint pain (Primary Dx); Arthralgia, unspecified [...] arthritis or other explanation of pain. POS [id number] Narrative 01/26/2020 8:20 AM EDT TECHNIQUE: 1.5 [...] tenosynovitis,arthritis or other explanation of pain. POS [id number] Clay Cavazos MD IMG MR EXTREMITY Final [...] joint documented in this encounter Care Teams Enterprise Application Architect Relationship Specialty Start Date End Date Edmund Cope MD PCP - General Internal Medicine 05/16/17 01/07/20 Edmund Cope MD [email or web address] PCP - General Internal Medicine 01/08/20 02/14/20 Shannon Garcia NP [address] [place] [address] [email or web address] PCP - General Family Medicine 02/15/20 08/12/20 Carey Boyd PA [address] [place] [address] PCP - General Editorial Specialist 08/13/20 04/23/25 Elicia Valentin PA [address] [place] [address] PCP - General Physician Coding Director 04/24/25 Edmund Cope MD [address] [place] [address] [email or web address] Insurance Assigned Provider 09/19/19 04/19/20 Regulo Lundberg MD [address] [place] [address] Insurance Assigned Provider 04/19/20 09/20/20 Natasha Cerrato, FRITZ [address] [place] [address] [email or web address] PHCM Admin Assistant 08/14/20 08/31/20 Shanda Wilkinson MD [address] [place] [address] Insurance Assigned Provider 09/20/20 11/16/20 Regulo Lundberg MD [address] [place] [address] [email or web address] Insurance Assigned Provider 11/16/20 04/18/22 Shanda Wilkinson MD [address] [place] [address] [email or web address] Insurance Assigned Provider 04/18/22 01/18/23 Shanda Wilkinson MD [address] [place] [address] [email or web address] Insurance Assigned Provider 04/18/22 02/19/23 documented as of this encounter Additional Source Comments The information contained in this document represents components of the legal health record. It is not the complete legal health record.[facility]
--- OUTSIDE RECORDS SUMMARY | 2025-06-04 08:41 | XMS_ITS | Encounter Summary ---
Author Organization [facility] Address [address] [facility] [address] [place] [address] Phone Care Team Providers Care Director Of Therapy Services Name Role Phone Regulo Lundberg MD Unavailable Carey Boyd Primary Care Provider [phone] Shanda Wilkinson MD Unavailable Regulo Lundberg MD Unavailable Shanda Wilkinson MD Unavailable Shanda Wilkinson MD Unavailable Elicia Valentin Primary Care Provider [phone] Reason for Referral * Physical Therapy (Urgent) - Closed Specialty Diagnoses / Procedures Referred By Meche t Referred To Contact Physical Therapy Diagnoses Encounter for rehabilitation Left Ankle Procedures Evalaute & Treat Guillermo Pineda MD Phone: tel: fax: mailto:[email or web address] [facility] [address] [place] [address] Phone: tel: Referral ID Status Reason Start Date Expiration Date Visits Re quested Visits Authorized [id number] Closed 09/08/2020 12/04/2020 17 17 Encounter Details Date Type Department Care Team (Latest Contact Info) Description 09/08/2020 Transcribe Orders [facility] [address] [place] [address] Guillermo Pineda MD [address] [facility] 2ND [place] [address] [email or web address] Encounter for rehabilitation (Primary Dx) Social [...] Diagnoses Orde r Schedule Ambulatory referral to [facility] Physical Therapy Outpatient Referral Routine Encounter for rehabilitation Ordered: 09/08/2020 documented as of this encounter Visit Diagnoses Diagnosis Encounter for rehabilitation- Primary documented in this encounter Care Teams Director Of Therapy Services Relationship Specialty Start Date End Date Carey Boyd PA [address] [place] [address] PCP - General Spring Former Machine 08/13/20 04/23/25 Elicia Valentin PA [address] [place] [address] PCP - General Physician Oncology Physician 04/24/25 Regulo Lundberg MD [address] [place] [address] Insurance Assigned Provider 04/19/20 09/20/20 Shanda Wilkinson MD [address] [place] [address] [email or web address] Insurance Assigned Provider 09/20/20 11/16/20 Regulo Lundberg MD [address] [place] [address] [email or web address] Insurance Assigned Provider 11/16/20 04/18/22 Shanda Wilkinson MD [address] [place] [address] [email or web address] Insurance Assigned Provider 04/18/22 01/18/23 Shanda Wilkinson MD [address] [place] [address] [email or web address] Insurance Assigned Provider 04/18/22 02/19/23 documented as of this encounter Additional Source Comments The information contained in this document represents components of the legal health record. It is not the complete legal health record.[facility]
--- OUTSIDE RECORDS SUMMARY | 2025-06-04 08:41 | XMS_ITS | Encounter Summary ---
Author Organization [facility] Address [address] [place] [address] [place] [address] Phone Care Team Providers Care Construction Quality Control Manager Name Role Phone Edmund Cope MD Unavailable [phone] Edmund Cope MD Primary Care Provider [phone] Shannon Garcia NP Primary Care Provid er Regulo Lundberg MD Unavailable [phone] Carey Boyd Primary Care Provider [phone] Natasha Cerrato RN Unavailable Shanda Wilkinson MD Unavailable [phone] Regulo Lundberg MD Unavailable [phone] Shanda Wilkinson MD Unavailable [phone] Shanda Wilkinson MD Unavailable [phone] Elicia Valentin Primary Care Provider Encounter Details Date Type Department Care Team (Late st Contact Info) Description 01/15/2020 Ancillary Orders [facility],Outside Imaging [address] [place], [place] [phone] System, Provider Not In, [facility] [address] [address] Social History Tobacco Use Types Packs/Day Years [...] on filedocumented in this encounter Care Teams Construction Quality Control Manager Relationship Specialty Start Date End Date Edmund Cope MD [address] [place] [address] [email or web address] PCP - General Internal Medicine 01/08/20 02/14/20 Shannon Garcia NP [address] [place] [address] [email or web address] PCP - General Family Medicine 02/15/20 08/12/20 Carey Boyd PA [address] [place] [address] PCP - General Licensed Sales Assistant 08/13/20 04/23/25 Elicia Valentin PA [address] [place] [address] PCP - General Physician Structural Mill Supervisor 04/24/25 Edmund Cope MD [address] [place] [address] [email or web address] Insurance Assigned Provider 09/19/19 04/19/20 Regulo Lundberg MD [address] [place] [address] [email or web address] Insurance Assigned Provider 04/19/20 09/20/20 Natasha Cerrato RN [address] [place] [address] [email or web address] [email or web address] 08/14/20 08/31/20 Shanda Wilkinson MD [address] [place] [address] [email or web address] Insurance Assigned Provider 09/20/20 11/16/20 Regulo Lundberg MD [address] [place] [address] [email or web address] Insurance Assigned Provider 11/16/20 04/18/22 Shanda Wilkinson MD [address] [place] [address] [email or web address] Insurance Assigned Provider 04/18/22 01/18/23 Shanda Wilkinson MD [address] [place] [address] [email or web address] Insurance Assigned Provider 04/18/22 02/19/23 documented as of this encounter Additional Source Comments The information contained in this document represents components of the legal health record. It is not the complete legal health record.[facility]
--- OUTSIDE RECORDS SUMMARY | 2025-06-04 08:41 | XMS_ITS | Encounter Summary ---
Author Organization [facility] Address [address] [place] [phone] Phone Care Team Providers Care Director Of Materials Name Role Phone Edmund Cope MD Primary Care Provider + Edmund Cope MD Unavailable [phone] Edmund Cope MD Primary Care Provider + Shannon Garcia NP Primary Care Provid er + Regulo Lundberg MD Unavailable + Carey Boyd Primary Care Provider [phone] Natasha Cerrato RN Unavailable Shanda Wilkinson MD Unavailable + Regulo Lundberg MD Unavailable + Shanda Wilkinson MD Unavailable + Shanda Wilkinson MD Unavailable + Elicia Valentin Primary Care Provider [phone] Encounter Details Date Type Department Care Team (Late st Contact Info) Description 01/04/2020 Procedure Pass [facility], [facility] [address] [place] [address] Social History Tobacco Use Types Packs/Day Years [...] filedocumented in this encounter Care Teams Director Of Materials Relationship Specialty Start Date End Date Edmund Cope MD [email or web address] PCP - General Internal Medicine 05/16/17 01/07/20 Edmund Cope MD [email or web address] PCP - General Internal Medicine 01/08/20 02/14/20 Shannon Garcia NP [address] [place] [id number] [email or web address] PCP - General Family Medicine 02/15/20 08/12/20 Carey Boyd PA [address] [place] [phone] PCP - General Senior Interior Designer 08/13/20 04/23/25 Elicia Valentin PA [address] [place] [phone] PCP - General Physician Agronomy Advisor 04/24/25 Edmund Cope MD [address] [place] [phone] [email or web address] Insurance Assigned Provider 09/19/19 04/19/20 Regulo Lundberg MD [address] [place] [address] [phone] Insurance Assigned Provider 04/19/20 09/20/20 Natasha Cerrato, RN [address] [place] [phone] [email or web address] [facility] Manager Medical 08/14/20 08/31/20 Shanda Wilkinson MD [address] [place] [phone] Insurance Assigned Provider 09/20/20 11/16/20 Regulo Lundebrg MD [address] [place] [phone] [email or web address] Insurance Assigned Provider 11/16/20 04/18/22 Shanda Wilkinson MD [address] [place] [phone] Insurance Assigned Provider 04/18/22 01/18/23 Shanda Wilkinson MD [address] [place] [phone] Insurance Assigned Provider 04/18/22 02/19/23 documented as of this encounter Additional Source Comments The information contained in this document represents components of the legal health record. It is not the complete legal health record.[facility]
--- OUTSIDE RECORDS SUMMARY | 2025-06-04 08:42 | XMS_ITS | Encounter Summary ---
Author Organization [facility] Address [address] [place] [address] Phone Care Team Providers Care Blackjack Dealer Name Role Phone Edmund Cope MD Primary [...] Unavailable + Elicia Valentin Primary Care Provider [phone] Encounter Details Date Type Department Care Team (Latest Contact Info) Description 01/24/2018 Transcribe Orders Virtual Department [address] [place] [address] Guillermo Villar MD [address] [place] [phone] [email or web address] Elbow pain, left (Primary Dx) [...] arm documented in this encounter Care Teams Blackjack Dealer Relationship Specialty Start Date End Date Edmund Cope MD [email or web address] PCP - General Internal Medicine 05/16/17 01/07/20 Edmund Cope MD [email or web address] PCP - General Internal Medicine 01/08/20 02/14/20 Shannon Garcia NP [address] [place] [address] [email or web address] PCP - General Family Medicine 02/15/20 08/12/20 Carey Boyd PA [address] [place] [phone] PCP - General Strip Stamp Straightener 08/13/20 04/23/25 Elicia Valentin PA [address] [place] [phone] PCP - General Physician Pharmacy Consultant 04/24/25 Edmund Cope MD [address] [place] [phone] [email or web address] Insurance Assigned Provider 10/14/18 03/24/19 Edmund Cope MD [address] [place] [phone] [email or web address] Insurance Assigned Provider 09/19/19 04/19/20 Regulo Lundberg MD [address] [place] [phone] [email or web address] Insurance Assigned Provider 04/19/20 09/20/20 Natasha Cerrato RN [address] [place] [address] [email or web address] Advisor 08/14/20 08/31/20 Shanda Wilkinson MD [address] [place] [phone] [email or web address] Insurance Assigned Provider 09/20/20 11/16/20 Regulo Lundberg MD [address] [place] [phone] [email or web address] Insurance Assigned Provider 11/16/20 04/18/22 Shanda Wilkinson MD [address] [place] [phone] [email or web address] Insurance Assigned Provider 04/18/22 01/18/23 Shanda Wilkinson MD [address] [place] [phone] [email or web address] Insurance Assigned Provider 04/18/22 02/19/23 documented as of this encounter Additional Source Comments The information contained in this document represents components of the legal health record. It is not the complete legal health record.[facility]
--- OUTSIDE RECORDS SUMMARY | 2025-06-04 08:42 | XMS_ITS | Clinical Summary ---
Author Organization [facility] Address [address] [facility] [address] [place] [address] Phone Care Team Providers Care Wall Man Name Role Phone Elicia Valentin Primary Care Provider [phone] Allergies Active Allergy Reactions Criticality Noted Date [...] head of right biceps tendon 07/07/2017 07/07/2017 Encounters Date Type Department Care Team Description 05/22/2025 10:45 AM EST Office Visit [facility]le [facility] [address] [facility], 3rd Floor, [address] [place] [address] Guillermo Pineda MD Left ankle instability (Primary Dx) 05/21/2025 Ancillary Orders [facility] [address] [place] [address] Unknown, Unknown, 05/21/2025 Ancillary Orders [facility] [address] [place] [address] Unknown, Unknown, 05/21/2025 Ancillary Orders [facility] [address] [place] [address] Unknown, Andrea, 05/21/2025 Ancillary Orders [facility] [address] [place] [address] Unknown, Andrea, 05/21/2025 Ancillary Orders [facility] [address] [place] [address] Unknown, Andrea, 05/21/2025 Ancillary Orders [facility] [address] [place] [address] Unknown, Andrea, 05/21/2025 Orders Only [facility]le [facility] [address] [facility], 3rd Floor, [address] [place] [address] Ludy Morales Pain (Primary Dx) 05/13/2025 12:05 AM EST - 05/13/2025 11:59 PM EST Hospital Encounter [facility] [address] [place] [address] Unknown, Unknown, Discharge Disposition: Home or Self Care 05/13/2025 - 05/13/2025 12:04 AM EST Hospital Encounter [facility] [address] [place] [address] Unknown, MD Andrea Discharge Disposition: Home or Self Care 03/26/2025 12:05 AM EDT - 03/26/2025 11:59 PM EDT Hospital Encounter [facility] [address] [place] [address] Unknown, MD Andrea Discharge Disposition: Home or Self Care 03/26/2025 - 03/26/2025 12:04 AM EDT Hospital Encounter [facility] [address] [place] [address] Unknown, Unknown, MD Discharge Disposition: Home or Self Care 03/05/2025 12:05 AM EDT - 03/05/2025 11:59 PM EDT Hospital Encounter [facility] [address] [place] [address] Unknown, Unknown, MD Discharge Disposition: Home or Self Care 03/05/2025 - 03/05/2025 12:04 AM EDT Hospital Encounter [facility] [address] [place] [address] Unknown, Unknown, MD Discharge Disposition: Home or Self Care from Last 3 Months Immunizations Immunization Administration Dates Next Due COVID-19 [...] this topic Medical Devices Implanted Type Area Corrugator Device Identifier Shelf Expiration Date Model / Serial / Lot [place] Suture 2 2.3mm 2strand Force Fiber Iconix Intellibraid -Order In Multiples Of 5 - [id number] Implanted:Qty: 3 on 07/07/2017 by Vernon Moses DO at [facility] Right: Shoulder [employer] 11/11/2018 [id number] / / [id number] Screw Bone 3.5x14mm Cortex Self Tapping Fully Threaded Hex Head Ss - [id number] Implanted:Qty: 1 on 11/20/2019 by Guillermo Pineda MD at [facility] Left: Ankle SYNTHES 204.814 / / AUTO#3 LOAD #1 Bone Plate 141x3.5mm 12 Hole Tubular One Third With Collar Lcp Ss - [id number] Implanted:Qty: 1 on 11/20/2019 by Guillermo Pineda MD at [facility] Left: Ankle SYNTHES 241.421 / / AUTO#3 LOAD #1 Screw Bone 2.7x18mm Cortical Self Tapping Fully Threaded Hex Head Ss Bx/1ea - [id number] Implanted:Qty: 1 on 11/20/2019 by Guillermo Pineda MD at [facility] Left: Ankle SYNTHES 202.818 / / AUTO#3 LOAD #1 Screw Bone 2.7x20mm Cortical Self Tapping Fully Threaded Hex Head Ss - [id number] Implanted:Qty: 1 on 11/20/2019 by Guillermo Pineda MD at [facility] Left: Ankle SYNTHES 202.820 / / AUTO#3 LOAD #1 Screw Bone 12x3.5mm Compression Ss Locking Self Tapping Full Thread T15 Stardrive Recess - [id number] Implanted:Qty: 1 on 11/20/2019 by Guillermo Pineda MD at [facility] Left: Ankle SYNTHES 212.102 / / AUTO#3 LOAD #1 Screw Bone 3.5x12mm Cortex Self Tapping Fully Threaded Hex Head Ss - [id number] Implanted:Qty: 2 on 11/20/2019 by Guillermo Pineda MD at [facility] Left: Ankle SYNTHES 204.812 / / AUTO#3 LOAD #1 Screw Bone 3.5x45mm Cortex Self Tapping Fully Threaded Hex Head Ss - [id number] Implanted:Qty: 1 on 11/20/2019 by Guillermo Pineda MD at [facility] Left: Ankle SYNTHES 204.845 / / AUTO#3 LOAD #1 Screw Bone 3.5x50mm Cortex Ss Self Tapping Hexagonal Socket - [id number] Implanted:Qty: 2 on 11/20/2019 by Guillermo Pineda MD at [facility] Left: Ankle SYNTHES 204.850 / / AUTO#3 LOAD #1 Washer Bone 7.0mm Sm Screw Cannulated Ss - Ssterilizer 4, Load 3: Sterilized 2020 Implanted:Qty: 2 on 08/25/2020 by Guillermo Pineda MD at [facility] Left: Foot SYNTHES 219.98 / STERILIZER 4, LOAD 3: STERILIZED 2020 / Screw Bone 30x3.5mm Cannulated Ss Full Thread Hexagonal Socket Flat Head - Discontinued Per Supplier - Ssterilizer 4, Load 3: Sterilized 2020 Implanted:Qty: 1 on 08/25/2020 by Guillermo Pineda MD at [facility] STANDARD Left: Foot SYNTHES 205.230 / STERILIZER 4, LOAD 3: STERILIZED 2020 / [place] Suture 4.5mm Arthroscopy Reelx Stt Peek Stainless Steel Core Knotless Sharp Tip Expandable Sterile Bx/5ea - [id number] Implanted:Qty: 1 on 07/07/2017 by Vernon Moses DO at [facility] Right: Shoulder [employer] 05/24/2019 [id number] / / [id number] Graft Bone 1.00ml Biocartilage Synthetic Matrix [place] Extracellular Filler Syringe - [id number] Implanted:Qty: 1 on 11/20/2019 by Guillermo Pineda MD at [facility] Left: Ankle [employer] [place] 04/11/2024 ABS-1010-BC / [id number] / [place] Suture 2.9mmx12.5 Pushlock Biocomposite Swivelock Vented Bx/5ea - Must Be Ordered In Multiples Of 5's - [id number] Implanted:Qty: 2 on 11/20/2019 by Guillermo Pineda MD at [facility] Left: Ankle ARTHRE[employer] 09/10/2021 [id number] / / [id number] Kit 1.5cc Graft Bone Augment Synthetic Bioabsorbable - [id number] Implanted:Qty: 1 on 11/20/2019 by Guillermo Pineda MD at [facility] Right: Ankle [employer] 05/12/2021 [id number] / / [id number] Guidewire Pipo 1.06q886as Non Threaded - Ssterilizer4, Load3: Sterilized Implanted:Qty: 2 on 08/25/2020 by Guillermo Pineda MD at [facility] Left: Foot SYNTHES 900.721 / STERILIZER4, LOAD3: STERILIZED / 3.5mm Cannulated Screws, Fully Threaded Implanted:Qty: 1 on 08/25/2020 by Guillermo Pineda MD at [facility] Left: Foot 205.224 / / Description:Sterilizer # nicole d #3 August 11, 2020 Explanted Type Area Corrugator Device Identifier Shelf Expiration Date Model / Serial / Lot Screw Bone 18x3.5mm Compression Ss Locking Self Tapping Full Thread T15 Stardrive Recess - [id number] Implanted:Qty: 1 by Guillermo Pineda MD Explanted:Qty: 1 on 11/20/2019 by Guillermo Pineda MD at [facility] Left: Ankle SYNTHES 212.105 / / AUTO#3 LOAD #1 Screw Bone 3.5x14mm Cortex Self Tapping Fully Threaded Hex Head Ss - [id number] Implanted:Qty: 1 Explanted:Qty: 1 on 11/20/2019 at [facility] [place] Left: Ankle SYNTHES 204.814 / / AUTO#3 LOAD #1 Procedures Procedure Name Priority Date/Time Associated Diagnosis Comments MRI LOWER EXTREMITY OUTSIDE (NO INTERPRETATION) Routine 05/13/2025 12:05 AM EST MRI LOWER EXTREMITY OUTSIDE (NO INTERPRETATION) Routine 05/13/2025 12:00 AM EST XR LOWER EXTREMITY OUTSIDE (NO INTERPRETATION) Routine 03/26/2025 12:05 AM EDT XR LOWER EXTREMITY OUTSIDE (NO INTERPRETATION) Routine 03/26/2025 12:00 AM EDT XR LOWER EXTREMITY OUTSIDE (NO INTERPRETATION) Routine 03/05/2025 12:05 AM EDT XR LOWER EXTREMITY OUTSIDE (NO INTERPRETATION) Routine 03/05/2025 12:00 AM EDT PAP TEST Routine 11/16/2023 12:00 AM EDT from Last 3 Months or Most Recently Relevant to Health Maintenance Results * MRI Lower Extremity Outside (No Interpretation) (05/13/2025 12:05 AM EST) Narrative [facility] IMG INTERFACES - 05/21/2025 3:54 PM EST This study is for PACS storage only and not for interpretation. us Unknown Unknown MD IMG OUTSIDE IMAGING W/OUT INT ERPRETATION Final Result Performing Organization Address [facility] de Phone Number [facility] IMG INTERFACES * MRI Lower Extremity Outside (No Interpretation) (05/13/2025 12:00 AM EST) Narrative [facility] IMG INTERFACES - 05/21/2025 3:54 PM EST This study is for PACS storage only and not for interpretation. us Unknown Unknown MD IMG OUTSIDE IMAGING W/OUT INT ERPRETATION Final Result Performing Organization Address [facility] Co de Phone Number [facility] IMG INTERFACES * XR Lower Extremity Outside (No Interpretation) (03/26/2025 12:05 AM EDT) Narrative [facility] IMG INTERFACES - 05/21/2025 3:55 PM EST This study is for PACS storage only and not for interpretation. us Unknown Unknown MD IMG OUTSIDE IMAGING W/OUT INT ERPRETATION Final Result Performing Organization Address [facility] de Phone Number [facility] IMG INTERFACES * XR Lower Extremity Outside (No Interpretation) (03/26/2025 12:00 AM EDT) Narrative [facility] IMG INTERFACES - 05/21/2025 3:54 PM EST This study is for PACS storage only and not for interpretation. us Unknown Unknown MD IMG OUTSIDE IMAGING W/OUT INT ERPRETATION Final Result Performing Organization Address [facility] de Phone Number [facility] INTER[facility]AC[facility] * XR Lower Extremity Outside (No Interpretation) (03/05/2025 12:05 AM EDT) Narrative [facility] INTER[facility]AC[facility] - 05/21/2025 3:57 PM EST This study is for PACS storage only and not for interpretation. us Unknown Unknown MD IMG OUTSIDE IMAGING W/OUT INT ERPRETATION Final Result Performing Organization Address [facility] de Phone Number [facility] * XR Lower Extremity Outside (No Interpretation) (03/05/2025 12:00 AM EDT) Narrative [facility] INTER[facility]ACES - 05/21/2025 3:57 PM EST This study is for PACS storage only and not for interpretation. us Unknown Unknown MD IMG OUTSIDE IMAGING W/OUT INT ERPRETATION Final Result Performing Organization Address [facility] de Phone Number [facility]G INTERFAC[facility] * Pap Test (11/16/2023 12:00 AM EDT) [address] [address] Cupola Operator Insulation: Jennifer Boyer MD HEADER MACHINE OPERATOR Cytology Report FINAL DIAGNOSIS A. PAP SMEAR (THIN PREP) CE: SPECIMEN ADEQUACY: Satisfactory for evaluation; transformation zone present. INTERPRETATION: NEGATIVE FOR INTRAEPITHELIAL LESION OR MALIGNANCY. This specimen was analyzed by the automated ThinPrep Imaging System ([employer].) and the selected mishra were reviewed by a sales planning manager. Electronically Signed Out By: NICOLE Herndon(ASCP) The [...] 59, 66, 68) Note: Testing performed by [facility] HR-HPV analysis. Clinical correlation is advised. This HPV test was performed at [facility], [address] [place] [address]. This test has been FDA approved for both SurePath and ThinPrep cervical cytology specimens. The accuracy and precision of this test for all other specimen sources has been verified in the Cytopathology Laboratory of the [facility] and has not been cleared or approved by the U.S. Food and Drug Administration. Clinical correlation is advised. CLINICAL HISTORY Date of Last Menstrual Period: 11-06-2023 Other Clinical Conditions: Screening Pap SPECIMEN SOURCE A: PAP SMEAR (THIN PREP) CE Patient Name: IVAN WILKINSON : 1990 (Age: 33) Sex: F Institution: [facility] Location: [facility] Date of Collection: 11/16/2023 Date of Reported: 11/22/2023 13:06 Results to: Shannon Garcia [facility] Final Diagnosis A. PAP SMEAR (THIN PREP) CE: SPECIMEN ADEQUACY: Satisfactory for evaluation; transformation zone present. INTERPRETATION: NEGATIVE FOR INTRAEPITHELIAL LESION OR MALIGNANCY. This specimen was analyzed by the automated ThinPrep Imaging System ([employer] and the selected mishra were reviewed by a sales planning manager. [facility] Results\Inter pretation A. PAP SMEAR (THIN PREP) CE: Human Papilloma Virus TestNEGATIVE for high-risk Human Papilloma Virus types 16, 18, 45 and the Other high risk probe set (Includes 31, 33, 35, 39, 51, 52, 56, 58, 59, 66, 68)Note: Testing performed by [employer] HR-HPV analysis. Clinical correlation is advised. This HPV test was performed at [facility], [address] [place] [address]. This test has been FDA approved for both SurePath and ThinPrep cervical cytology specimens. The accuracy and precision of this test for all other specimen sources has been verified in the Cytopathology Laboratory of the [facility] and has not been cleared or approved by the U.S. Food and Drug Administration. Clinical correlation is advised. [facility] Conversion Type (Conversion Source) 11/16/2023 11/17/2023 10:35 AM EDT Shannon Garcia NP CYTOLOGY ORDERABLES Edited Result - Final [facility] [address] [place] [address] from Last 3 Months or Most Recently Relevant to Health Maintenance Insurance Advance Directives For more information, please contact: [phone] (9AM - 5PM [place], Tuesday-Tuesday) * Full Code (Presumed) (Latest Code Status on File) Date Activated Date Inactivated Comments 07/07/2017 8:30 AM 07/07/2017 3:58 PM Care Teams Wall Man Relationship Specialty Start Date End Date Elicia Valentin PA [address] [place] [address] PCP - General Physician Research Nutritionist 04/24/25 Additional Source Comments The information contained in this document represents components of the legal health record. It is not the complete legal health record.[facility]
--- OUTSIDE RECORDS SUMMARY | 2025-06-04 08:42 | XMS_ITS | Encounter Summary ---
Author Organization [facility] Address [address] [facility] [address] [place] [address] Phone Care Team Providers Care Professor Of Philosophy Name Role Phone Carey Boyd Primary Care Provider [phone] Regulo Lundberg MD Unavailable Shanda Wilkinson MD Unavailable Shanda Wilkinson MD Unavailable [phone] Elicia Valentin Primary Care Provider [phone] Encounter Details Date Type Department Care Team (Late st Contact Info) Description 12/08/2021 Procedure Pass [facility] Interventional X-ray Imaging, [place] [address] [place] [address] Social History Tobacco Use Types Packs/Day Years [...] on filedocumented in this encounter Care Teams Professor Of Philosophy Relationship Specialty Start Date End Date Carey Boyd PA [address] [place] [address] PCP - General Career Technology Teacher 08/13/20 04/23/25 Elicia Valentin PA [address] [place] [address] PCP - General Physician Gradall Operator 04/24/25 Regulo Lundberg MD [address] [place] [address] [email or web address] Insurance Assigned Provider 11/16/20 04/18/22 Shanda Wilkinson MD [address] [place] [phone] Insurance Assigned Provider 04/18/22 01/18/23 Shanda Wilkinson MD [address] [place] [address] Insurance Assigned Provider 04/18/22 02/19/23 documented as of this encounter Additional Source Comments The information contained in this document represents components of the legal health record. It is not the complete legal health record.[facility]
--- OUTSIDE RECORDS SUMMARY | 2025-06-04 08:42 | XMS_ITS | Encounter Summary ---
Author Organization [facility] Address [address] [facility] [address] [place] [address] Phone Care Team Providers Care Environmental Tech Name Role Phone Edmund Cope MD Primary Care Provider + Edmund Cope MD Unavailable [phone] Edmund Cope MD Unavailable [phone] Edmund Cope MD Primary Care Provider + Shannon Garcia NP Primary Care Provid er + Regulo Lundberg MD Unavailable + Carey Boyd Primary Care Provider [phone] Natasha Cerrato RN Unavailable Shanda Wilkinson MD Unavailable + Regulo Lundberg MD Unavailable + Shanda Wilkinson MD Unavailable + Shanda Wilkinson MD Unavailable [phone] Elicia Valentin Primary Care Provider [phone] Encounter Details Date Type Department Care Team (Late st Contact Info) Description 05/13/2017 Ancillary Orders Virtual Department [address] [place] [address] Carey Boyd PA [address] [place] [id number] Right shoulder pain, unspecified chronicity Social History [...] be due to mild bursitis. POS - [id number] Narrative 05/19/2017 10:31 AM EST HISTORY: Pain, [...] of soft tissue masses. Procedure Note Marcello Finngean MD - 05/19/2017 HISTORY: Pain, weakness and [...] be due to mild bursitis. POS - [id number] Carey BECERRA IMG MR EXTREMITY Final Res ult documented in this encounter Visit Diagnoses Diagnosis Right shoulder pain, unspecified chronicity Right shoulder pain, unspecified chronicity documented in this encounter Care Teams Environmental Tech Relationship Specialty Start Date End Date Edmund Cope MD PCP - General Internal Medicine 05/16/17 01/07/20 Edmund Cope MD PCP - General Internal Medicine 01/08/20 02/14/20 Shannon Garcia NP [address] [place] [address] [email or web address] PCP - General Family Medicine 02/15/20 08/12/20 Carey Boyd PA [address] [place] [address] PCP - General Power Shovel Mechanic 08/13/20 04/23/25 Elicia Valentin PA [address] [place] [address] PCP - General Physician Seo Engineer 04/24/25 Edmund Cope MD [address] [place] [phone] [email or web address] Insurance Assigned Provider 10/14/18 03/24/19 Edmund Cope MD [address] [place] [id number] [email or web address] Insurance Assigned Provider 09/19/19 04/19/20 Regulo Lundberg MD [address] [place] [phone] Insurance Assigned Provider 04/19/20 09/20/20 Natasha Cerrato RN [address] [place] [address] PHCM Chief Controller 08/14/20 08/31/20 Shanda Wilkinson MD [address] [place] [phone] [email or web address] Insurance Assigned Provider 09/20/20 11/16/20 Regulo Lundberg MD [address] [place] [address] [email or web address] Insurance Assigned Provider 11/16/20 04/18/22 Shanda Wilkinson MD [address] [place] [address] Insurance Assigned Provider 04/18/22 01/18/23 Shanda Wilkinson MD [address] [place] [address] [email or web address] Insurance Assigned Provider 04/18/22 02/19/23 documented as of this encounter Additional Source Comments The information contained in this document represents components of the legal health record. It is not the complete legal health record.[facility]
--- OUTSIDE RECORDS SUMMARY | 2025-06-04 08:42 | XMS_ITS | Encounter Summary ---
Author Organization [facility] Address [address] [facility] [address] [place] [address] Phone Care Team Providers Care Hedis Abstractor Name Role Phone Edmund Cope MD Primary Care Provider + Edmund Cope MD Unavailable [phone] Edmund Cope MD Unavailable [phone] Edmudn Cope MD Primary Care Provider + Shannon Garcia NP Primary Care Provid er + Regulo Lundberg MD Unavailable + Carey Boyd Primary Care Provider [phone] Natasha Cerrato RN Unavailable Shanda Wilkinson MD Unavailable + Regulo Lundberg MD Unavailable + Shanda Wilkinson MD Unavailable + Shanda Wilkinson MD Unavailable [phone] Elicia Valentin Primary Care Provider [phone] Encounter Details Date Type Department Care Team (Late st Contact Info) Description 08/09/2018 Ancillary Orders Virtual Department [address] [place] [address] Aniya Jimenez MD [address] [facility] [address] [place] [address] Abnormal involuntary movement Social History Tobacco Use [...] Modality EEG Narrative 08/14/2018 3:34 PM EST [facility] INTRODUCTION: The patient is [...] persistent focal asymmetries occurred. MD Sameer Berrios Neurology us Aniya Jimenez MD NEUROLOGY ORDERABLES Fi nal Result documented in this encounter Visit Diagnoses Diagnosis Abnormal involuntary movement Abnormal involuntary movements Abnormal involuntary movement Abnormal involuntary movements documented in this encounter Care Teams Hedis Abstractor Relationship Specialty Start Date End Date Edmund Cope MD [email or web address] PCP - General Internal Medicine 05/16/17 01/07/20 Edmund Cope MD [email or web address] PCP - General Internal Medicine 01/08/20 02/14/20 Shannon Garcia NP [address] [place] [address] [email or web address] PCP - General Family Medicine 02/15/20 08/12/20 Carey Boyd PA [address] [place] [address] PCP - General Stretcher Helper 08/13/20 04/23/25 Elicia Valentin PA [address] [place] [address] PCP - General Physician Auto Radiator Mechanic 04/24/25 Edmund Cope MD [address] [place] [address] [email or web address] Insurance Assigned Provider 10/14/18 03/24/19 Edmund Cope MD [address] [place] [phone] [email or web address] Insurance Assigned Provider 09/19/19 04/19/20 Regulo Lundberg MD [address] [place] [address] [email or web address] Insurance Assigned Provider 04/19/20 09/20/20 Natasha Cerrato RN [address] [place] [phone] [email or web address] Pathologist 08/14/20 08/31/20 Shanda Wilkinson MD [address] [place] [phone] [email or web address] Insurance Assigned Provider 09/20/20 11/16/20 Regulo Lundberg MD [address] [place] [address] [email or web address] Insurance Assigned Provider 11/16/20 04/18/22 Shanda Wilkinson MD [address] [place] [phone] [email or web address] Insurance Assigned Provider 04/18/22 01/18/23 Shanda Wilkinson MD [address] [place] [phone] [email or web address] Insurance Assigned Provider 04/18/22 02/19/23 documented as of this encounter Additional Source Comments The information contained in this document represents components of the legal health record. It is not the complete legal health record.[facility]
--- OUTSIDE RECORDS SUMMARY | 2025-06-04 08:42 | XMS_ITS | Encounter Summary ---
Author Organization [facility] Address [address] [facility] [address] [place] [address] Phone Care Team Providers Care Sanitor Name Role Phone Carey Boyd Primary Care Provider [phone] Regulo Lundberg MD Unavailable Shanda Wilkinson MD Unavailable Shanda Wilkinson MD Unavailable [phone] Elicia Valentin Primary Care Provider [phone] Encounter Details Date Type Department Care Team (Late st Contact Info) Description 12/08/[address] [facility], [place] [address] [place] [address] Social History Tobacco Use Types Packs/Day Years [...] on filedocumented in this encounter Care Teams Sanitor Relationship Specialty Start Date End Date Carey Boyd PA [address] [place] [address] PCP - General Experimental Assembler 08/13/20 04/23/25 Elicia Valentin PA [address] [place] [address] PCP - General Physician Mannequin Sander And Finisher 04/24/25 Regulo Lundberg MD [address] [place] [address] [email or web address] Insurance Assigned Provider 11/16/20 04/18/22 Shanda Wilkinson MD [address] [place] [address] Insurance Assigned Provider 04/18/22 01/18/23 Shanda Wilkinson MD [address] [place] [address] Insurance Assigned Provider 04/18/22 02/19/23 documented as of this encounter Additional Source Comments The information contained in this document represents components of the legal health record. It is not the complete legal health record.[facility]
--- OUTSIDE RECORDS SUMMARY | 2025-06-04 08:42 | XMS_ITS | Encounter Summary ---
Author Organization [facility] Address [address] [place] [address] Phone Care Team Providers Care Analytical Chemist Name Role Phone Carey Boyd Primary Care Provider [phone] Shanda Wilkinson MD Unavailable [phone] Elicia Valentin Primary Care Provider [phone] Encounter Details Date Type Department Care Team (Late st Contact Info) Description 01/24/2023 Procedure Pass [address] [place] [address] Social History Tobacco Use Types Packs/Day Years [...] on filedocumented in this encounter Care Teams Analytical Chemist Relationship Specialty Start Date End Date Carey Boyd PA [address] [place] [address] PCP - General Change Control Manager 08/13/20 04/23/25 Elicia Valentin PA [address] [place] [address] PCP - General Physician Ironworker Wire Fence Erector 04/24/25 Shanda Wilkinson MD [address] [place] [address] [email or web address] Insurance Assigned Provider 04/18/22 02/19/23 documented as of this encounter Additional Source Comments The information contained in this document represents components of the legal health record. It is not the complete legal health record.[facility]
--- OUTSIDE RECORDS SUMMARY | 2025-06-04 08:42 | XMS_ITS | Encounter Summary ---
Author Organization [facility] Address [address] [facility] [address] [place] [address] Phone Care Team Providers Care Patient Information Coordinator Name Role Phone Carey Boyd Primary Care Provider [phone] Regulo Lundberg MD Unavailable [phone] Shanda Wilkinson MD Unavailable [phone] Shanda Wilkinson MD Unavailable [phone] Elicia Valentin Primary Care Provider [phone] Encounter Details Date Type Department Care Team (Late st Contact Info) Description 01/19/2022 Procedure Pass [facility], [facility] - [facility] [address] [place], [place] [id number] Social History Tobacco Use Types Packs/Day Years [...] on filedocumented in this encounter Care Teams Patient Information Coordinator Relationship Specialty Start Date End Date Carey Boyd PA [address] [place] [address] PCP - General Lead Informatica Developer 08/13/20 04/23/25 Elicia Valentin PA [address] [place] [address] PCP - General Physician Track Machine Operator Repairer 04/24/25 Regulo Lundberg MD [address] [place] [address] Insurance Assigned Provider 11/16/20 04/18/22 Shanda Wilkinson MD [address] [place] [address] Insurance Assigned Provider 04/18/22 01/18/23 Shanda Wilkinson MD [address] [place] [address] Insurance Assigned Provider 04/18/22 02/19/23 documented as of this encounter Additional Source Comments The information contained in this document represents components of the legal health record. It is not the complete legal health record.[facility]
--- OUTSIDE RECORDS SUMMARY | 2025-06-04 08:42 | XMS_ITS | Encounter Summary ---
Author Organization [facility] Address [address] [facility] [address] [place] [address] Phone Care Team Providers Care Auditing Specialist Name Role Phone Carey Boyd Primary Care Provider [phone] Regulo Lundberg MD Unavailable [phone] Shanda Wilkinson MD Unavailable [phone] Shanda Wilkinson MD Unavailable [phone] Elicia Valentin Primary Care Provider [phone] Reason for Referral * Physical Therapy (Routine) - Closed Specialty Diagnoses / Procedures Referred By Contac t Referred To Contact Physical Therapy Diagnoses Encounter for rehabilitation Shannon Garcia NP [address] [place] [address] Phone: tel: fax: [email or web address] [facility] [address] [place] [address] Phone: tel: Referral ID Status Reason Start Date Expiration Date Visits Re quested Visits Authorized [id number] Closed 02/13/2021 02/13/2022 1 1 Encounter Details Date Type Department Care Team (Latest Contact Info) Description 02/13/2021 Transcribe Orders [facility] [address] [place] [address] Shannon Garcia, RICARDO [address] [place] [id number] [email or web address] Encounter for rehabilitation (Primary Dx) Social History [...] Orde r Schedule Ambulatory referral to [facility] Physical Therapy Outpatient Referral Routine Encounter for rehabilitation Ordered: 02/13/2021 documented as of this encounter Visit Diagnoses Diagnosis Encounter for rehabilitation- Primary documented in this encounter Care Teams Auditing Specialist Relationship Specialty Start Date End Date Carey Boyd PA [address] [place] [address] PCP - General Principal Developer 08/13/20 04/23/25 Elicia Valentin PA [address] [place] [address] PCP - General Physician Director Of Cardiac Cath Lab 04/24/25 Regulo Lundberg MD [address] [place] [address] [email or web address] Insurance Assigned Provider 11/16/20 04/18/22 Shanda Wilkinson MD [address] [place] [address] [email or web address] Insurance Assigned Provider 04/18/22 01/18/23 Shanda Wilkinson MD [address] [place] [address] [email or web address] Insurance Assigned Provider 04/18/22 02/19/23 documented as of this encounter Additional Source Comments The information contained in this document represents components of the legal health record. It is not the complete legal health record.[facility]
--- OUTSIDE RECORDS SUMMARY | 2025-06-04 08:42 | XMS_ITS | Encounter Summary ---
Author Organization [facility] Address [address] [facility] [address] [place] [address] Phone Care Team Providers Care Wrapper Hand Name Role Phone Shannon Garcia NP Primary Care Provid er Regulo Lundberg MD Unavailable Carey Boyd Primary Care Provider [phone] Natasha Cerrato RN Unavailable Shanda Wilkinson MD Unavailable Regulo Lundberg MD Unavailable [phone] Shanda Wilkinson MD Unavailable [phone] Shanda Wilkinson MD Unavailable Elicia Valentin Primary Care Provider [phone] Encounter Details Date Type Department Care Team (Late st Contact Info) Description 05/15/2020 Procedure Pass [facility] [address] [place], [place] [phone] Social History Tobacco Use Types Packs/Day Years [...] on filedocumented in this encounter Care Teams Wrapper Hand Relationship Specialty Start Date End Date Shannon Garcia NP [address] [place] [address] [email or web address] PCP - General Family Medicine 02/15/20 08/12/20 Carey Boyd PA [address] [place] [address] PCP - General Mall Plant Caretaker 08/13/20 04/23/25 Elicia Valentin PA [address] [place] [address] PCP - General Physician Resume Writer 04/24/25 Regulo Lundberg MD [address] [place] [address] Insurance Assigned Provider 04/19/20 09/20/20 Natasha Cerrato, FRITZ [address] [place] [address] PHCM Vehicle Leasing And Rental Manager 08/14/20 08/31/20 Shanda Wilkinson MD [address] [place] [address] Insurance Assigned Provider 09/20/20 11/16/20 Regulo Lundberg MD [address] [place] [address] [email or web address] Insurance Assigned Provider 11/16/20 04/18/22 Shanda Wilkinson MD [address] [place] [address] [email or web address] Insurance Assigned Provider 04/18/22 01/18/23 Shanda Wilkinson MD [address] [place] [address] [email or web address] Insurance Assigned Provider 04/18/22 02/19/23 documented as of this encounter Additional Source Comments The information contained in this document represents components of the legal health record. It is not the complete legal health record.[facility]
--- OUTSIDE RECORDS SUMMARY | 2025-06-04 08:42 | XMS_ITS | Encounter Summary ---
Author Organization [facility] Address [address] [facility] [address] [place] [address] Phone Care Team Providers Care Alining Inspector Name Role Phone Edmund Cope MD [...] Unavailable + Elicia Valentin Primary Care Provider [phone] Encounter Details Date Type Department Care Team (Late st Contact Info) Description 05/13/2017 Procedure Pass [facility] - Main [address] [address] Social History Tobacco Use Types Packs/Day Years [...] on filedocumented in this encounter Care Teams Alining Inspector Relationship Specialty Start Date End Date Edmund Cope MD [email or web address] PCP - General Internal Medicine 05/16/17 01/07/20 Edmund Cope MD [email or web address] PCP - General Internal Medicine 01/08/20 02/14/20 Shannon Garcia NP [address] [place] [address] [email or web address] PCP - General Family Medicine 02/15/20 08/12/20 Carey Boyd PA [address] [place] [address] PCP - General Automotive Electrical Helper 08/13/20 04/23/25 Elicia Valentin PA [address] [place] [address] PCP - General Physician Solar Process Engineer 04/24/25 Edmund Cope MD [address] [place] [address] [email or web address] Insurance Assigned Provider 10/14/18 03/24/19 Edmund Cope MD [address] [place] [address] [email or web address] Insurance Assigned Provider 09/19/19 04/19/20 Regulo Lundberg MD [address] [place] [address] [email or web address] Insurance Assigned Provider 04/19/20 09/20/20 Natasha Cerrato RN [address] [place] [address] [email or web address] Assistant 08/14/20 08/31/20 Shanda Wilkinson MD [address] [place] [address] [email or web address] Insurance Assigned Provider 09/20/20 11/16/20 Regulo Lundberg MD [address] [place] [address] [email or web address] Insurance Assigned Provider 11/16/20 04/18/22 Shanda Wilkinson MD [address] [place] [address] [email or web address] Insurance Assigned Provider 04/18/22 01/18/23 Shanda Wilkinson MD [address] [place] [address] [email or web address] Insurance Assigned Provider 04/18/22 02/19/23 documented as of this encounter Additional Source Comments The information contained in this document represents components of the legal health record. It is not the complete legal health record.[facility]
--- OUTSIDE RECORDS SUMMARY | 2025-06-04 08:42 | XMS_ITS | Encounter Summary ---
Author Organization [facility] Address [address] [facility] [place] [facility] [address] [place] [address] Phone Care Team Providers Care Work Ticket Distributor Name Role Phone Edmund Cope MD Primary Care Provider + Edmund Cope MD Unavailable + 0 Edmund Cope MD Unavailable + 0 Edmund Cope MD Primary Care Provider + Shannon Garcia NP Primary Care Provid er + Regulo Lundberg MD Unavailable + Caery Boyd Primary Care Provider + Natasha Cerrato RN Unavailable Shanda Wilkinson MD Unavailable + Regulo uLndberg MD Unavailable + Shanda Wilkinson MD Unavailable + Shanda Wilkinson MD Unavailable + Elicia Valentin Primary Care Provider [phone] Reason for Referral * Consultation (Elective) - Closed Specialty Diagnoses / Procedures Referred By Contcoco t Referred To Contact Neurology Diagnoses Myoclonus Chronic ankle pain, unspecified laterality System, Provider Not In, [facility] [id number] [place] [address] [address] [place] [address] Phone: tel: Referral ID Status Reason Start Date Expiration Date Visits Re quested Visits Authorized [id number] Closed 09/01/2018 09/02/2019 1 1 Encounter Details Date Type Department Care Team (Latest Contact Info) Description 09/01/2018 Transcribe Orders [facility] [address] [place] [phone] Self-Referred, Patient Myoclonus (Primary Dx); Chronic [...] r Schedule Ambulatory referral to [facility] Outpatient Referral Routine Myoclonus Chronic ankle pain, unspecified laterality Ordered: 09/01/2018 documented as of this encounter Visit Diagnoses Diagnosis Myoclonus- Primary Chronic ankle pain, unspecified laterality documented in this encounter Care Teams Work Ticket Distributor Relationship Specialty Start Date End Date Edmund Cope MD [email or web address] PCP - General Internal Medicine 05/16/17 01/07/20 Edmund Cope MD PCP - General Internal Medicine 01/08/20 02/14/20 Shannon Garcia, RICARDO [address] [place] [address] [email or web address] PCP - General Family Medicine 02/15/20 08/12/20 Carey Boyd PA [address] [place] [address] PCP - General Instructor Ground Services 08/13/20 04/23/25 Elicia Valentin PA [address] [place] [address] PCP - General Physician Cooking Show Host 04/24/25 Edmund Cope MD [address] [place] [address] [email or web address] Insurance Assigned Provider 10/14/18 03/24/19 Edmund Cope MD [address] [place] [address] [email or web address] Insurance Assigned Provider 09/19/19 04/19/20 Regulo Lundberg MD [address] [place] [address] Insurance Assigned Provider 04/19/20 09/20/20 Natasha Cerrato RN [address] [place] [address] PHCM Naval Science Teacher 08/14/20 08/31/20 Shanda Wilkinson MD [address] [place] [address] [email or web address] Insurance Assigned Provider 09/20/20 11/16/20 Regulo Lundberg MD [address] [place] [address] [email or web address] Insurance Assigned Provider 11/16/20 04/18/22 Shanda Wilkinson MD [address] [place] [address] [email or web address] Insurance Assigned Provider 04/18/22 01/18/23 Shanda Wilkinson MD [address] [place] [address] [email or web address] Insurance Assigned Provider 04/18/22 02/19/23 documented as of this encounter Additional Source Comments The information contained in this document represents components of the legal health record. It is not the complete legal health record.[facility]
--- OUTSIDE RECORDS SUMMARY | 2025-06-04 08:42 | XMS_ITS | Encounter Summary ---
Author Organization [facility] Address [address] [facility] [address] [place] [address] Phone Care Team Providers Care Water Quality Manager Name Role Phone Edmund Cope MD Primary Care Provider + Edmund Cope MD Unavailable +[phone] Edmund Cope MD Unavailable +[phone] Edmund Cope MD Primary Care Provider + Shannon Garcia NP Primary Care Provid er + Regulo Lundberg MD Unavailable + Carey Boyd Primary Care Provider [phone] Natasha Cerrato RN Unavailable Shanda Wilkinson MD Unavailable + Regulo Lundberg MD Unavailable + Shanda Wilkinson MD Unavailable + Shanda Wilkinson MD Unavailable + Elicia Valentin Primary Care Provider +[phone] Encounter Details Date Type Department Care Team (Late st Contact Info) Description 07/07/2017 Procedure Pass [place] Admitting Dept - Virtual Department [address] [place] [address] Social History Tobacco Use Types Packs/Day Years [...] on filedocumented in this encounter Care Teams Water Quality Manager Relationship Specialty Start Date End Date Edmund Cope MD [email or web address] PCP - General Internal Medicine 05/16/17 01/07/20 Edmund Cope MD [email or web address] PCP - General Internal Medicine 01/08/20 02/14/20 Shannon Garcia NP [address] [place] [address] [email or web address] PCP - General Family Medicine 02/15/20 08/12/20 Carey Boyd PA [address] [place] [address] PCP - General Licsw 08/13/20 04/23/25 Elicia Valentin PA [address] [place] [address] PCP - General Physician Automobile Service Advisor 04/24/25 Edmund Cope MD [address] [place] [address] [email or web address] Insurance Assigned Provider 10/14/18 03/24/19 Edmund Cope MD [address] [place] [address] [email or web address] Insurance Assigned Provider 09/19/19 04/19/20 Regulo Lundberg MD [address] [place] [address] [email or web address] Insurance Assigned Provider 04/19/20 09/20/20 Natasha Cerrato RN [address] [place] [address] [email or web address] Developer 08/14/20 08/31/20 Shanda Wilkinson MD [address] [place] [address] [email or web address] Insurance Assigned Provider 09/20/20 11/16/20 Regulo Lundberg MD [address] [place] [address] [email or web address] Insurance Assigned Provider 11/16/20 04/18/22 Shanda Wilkinson MD [address] [place] [address] [email or web address] Insurance Assigned Provider 04/18/22 01/18/23 Shanda Wilkinson MD [address] [place] [address] [email or web address] Insurance Assigned Provider 04/18/22 02/19/23 documented as of this encounter Additional Source Comments The information contained in this document represents components of the legal health record. It is not the complete legal health record.[facility]
--- OUTSIDE RECORDS SUMMARY | 2025-06-04 08:42 | XMS_ITS | Encounter Summary ---
Author Organization [facility] Address [address] [facility] [address] [place] [address] Phone Care Team Providers Care Vice President Financial Name Role Phone Carey Boyd Primary Care Provider [phone] Regulo Lundberg MD Unavailable Shanda Wilkinson MD Unavailable [phone] Shanda Wilkinson MD Unavailable [phone] Elicia Valentin Primary Care Provider [phone] Encounter Details Date Type Department Care Team (Late st Contact Info) Description 01/19/2022 Procedure Pass [facility] [address] [place] [address] Social History Tobacco Use Types Packs/Day Years [...] 8:12 PM EDT Sexual Orientation Lesbian or Amry 01/21/2023 5: 33 PM EDT documented as of this encounter Plan of Treatment Not on file documented as of this encounter Visit Diagnoses Not on filedocumented in this encounter Care Teams Vice President Financial Relationship Specialty Start Date End Date Carey Boyd PA [address] [place] [address] PCP - General Contractor General Building 08/13/20 04/23/25 Elicia Valentin PA [address] [place] [address] PCP - General Physician Pasta Maker 04/24/25 Regulo Lundberg MD [address] [place] [address] [email or web address] Insurance Assigned Provider 11/16/20 04/18/22 Shanda Wilkinson MD [address] [place] [address] Insurance Assigned Provider 04/18/22 01/18/23 Shanda Wilkinson MD [address] [place] [address] Insurance Assigned Provider 04/18/22 02/19/23 documented as of this encounter Additional Source Comments The information contained in this document represents components of the legal health record. It is not the complete legal health record.[facility]
--- OUTSIDE RECORDS SUMMARY | 2025-06-04 08:42 | XMS_ITS | Encounter Summary ---
Author Organization [facility] Address [address] [facility] [address] [place] [address] Phone Care Team Providers Care Automotive Service Consultant Name Role Phone Edmund Cope MD Primary Care Provider + Edmund Cope MD Unavailable + 0 Edmund oCpe MD Unavailable + 0 Edmund Cope MD Primary Care Provider + Shannon Garcia NP Primary Care Provid er + Regulo Lundberg MD Unavailable + Carey Boyd Primary Care Provider + Natasha Cerrato RN Unavailable Shanda Wilkinson MD Unavailable + Regulo Lundberg MD Unavailable + Shanda Wilkinson MD Unavailable + Shanda Wilkinson MD Unavailable + Elicia Valentin Primary Care Provider +[phone] Encounter Details Date Type Department Care Team (Late st Contact Info) Description 11/15/2018 Procedure Pass [facility], Mri - Main [address] [address] Social History Tobacco Use Types Packs/Day Years [...] on filedocumented in this encounter Care Teams Automotive Service Consultant Relationship Specialty Start Date End Date Edmund Cope MD [email or web address] PCP - General Internal Medicine 05/16/17 01/07/20 Edmund Cope MD [email or web address] PCP - General Internal Medicine 01/08/20 02/14/20 Shannon Garcia NP [address] [place] [address] [email or web address] PCP - General Family Medicine 02/15/20 08/12/20 Carey Boyd PA [address] [place] [address] PCP - General Industrial Health Engineer 08/13/20 04/23/25 Elicia Valentin PA [address] [place] [address] PCP - General Physician Precipitator Operator 04/24/25 Edmund Cope MD [address] [place] [address] [email or web address] Insurance Assigned Provider 10/14/18 03/24/19 Edmund Cope MD [address] [place] [address] [email or web address] Insurance Assigned Provider 09/19/19 04/19/20 Regulo Lundberg MD [address] [place] [address] [email or web address] Insurance Assigned Provider 04/19/20 09/20/20 Natasha Cerrato RN [address] [place] [address] [email or web address] [email or web address] Operator 08/14/20 08/31/20 Shanda Wilkinson MD [address] [place] [address] [email or web address] Insurance Assigned Provider 09/20/20 11/16/20 Regulo Lundberg MD [address] [place] [address] [email or web address] Insurance Assigned Provider 11/16/20 04/18/22 Shanda Wilkinson MD [address] [place] [address] [email or web address] Insurance Assigned Provider 04/18/22 01/18/23 Shanda Wilkinson MD [address] [place] [address] [email or web address] Insurance Assigned Provider 04/18/22 02/19/23 documented as of this encounter Additional Source Comments The information contained in this document represents components of the legal health record. It is not the complete legal health record.[facility]
--- OUTSIDE RECORDS SUMMARY | 2025-06-04 08:42 | XMS_ITS | Encounter Summary ---
Author Organization [facility] Address [address] [employer] [facility] [address] [place] [address] Phone Care Team Providers Care Textile Cutting Machine Operator Name Role Phone Carey Boyd Primary Care Provider [phone] Regulo Lundberg MD Unavailable [phone] Shanda Wilkinson MD Unavailable +[phone] Shanda Wilkinson MD Unavailable [phone] Elicia Valentin Primary Care Provider [phone] Encounter Details Date Type Department Care Team (Late st Contact Info) Description 01/27/2021 Procedure Pass [facility] [address] [place] [address] Social History Tobacco Use Types [...] on filedocumented in this encounter Care Teams Textile Cutting Machine Operator Relationship Specialty Start Date End Date Carey Boyd PA [address] [place] [address] PCP - General Hvac Commercial Salesperson 08/13/20 04/23/25 Elicia Valentin PA [address] [place] [address] PCP - General Physician Printed Circuit Boards Laminator 04/24/25 Regulo Lundberg MD [address] [place] [address] [email or web address] Insurance Assigned Provider 11/16/20 04/18/22 Shanda Wilkinson MD [address] [place] [address] Insurance Assigned Provider 04/18/22 01/18/23 Shanda Wilkinson MD [address] [place] [address] Insurance Assigned Provider 04/18/22 02/19/23 documented as of this encounter Additional Source Comments The information contained in this document represents components of the legal health record. It is not the complete legal health record.[facility]
== END 2025-06-04 08:57 | disposition home or self-care (01) ==
LOC: HO.HPODS 08:31
PROVIDERS: PCP Physician Assistant Medical; Visit Provider Student in an Organized Health Care Education/Training Program
DX: M24.272 Disorder of ligament, left ankle (principal); M19.072 Primary osteoarthritis, left ankle and foot; M95.8 Other specified acquired deformities of musculoskeletal system; M76.72 Peroneal tendinitis, left leg
CPT/HCPCS: 99213

== ENCOUNTER 2025-06-07 13:56 | Outpatient (REF) | payer OTHER, SELFPAY ==
--- NOTE | ~2025-06-07 | XR_ITS ---
EXAMINATION: XR ANKLE, LEFT CLINICAL INFORMATION: M24.272 - Disorder of ligament, left ankle COMPARISON: Left ankle 03/26/2025. TECHNIQUE: AP, lateral, and mortise views of the left ankle. FINDINGS: There is distal tibia and fibula fusion with severed retained screw within the distal tibia. No visible acute fracture or dislocation seen. Old healed fracture sequelae seen along the distal fibula and lateral cortex of the tibia. The ankle mortise and subtalar joints are normal. The soft tissues are normal. XR/XR ankle LT min 3V IMPRESSION: Old healed fracture distal fibula. Severed and retained screw within the distal fibula from previous intervention. It appears unchanged to previous x-ray 03/26/2025. Electronically signed by: Ambrosio Timmons MD 06/07/2025 02:21 PM СЕРГЕЙ RINCON
--- OUTSIDE RECORDS SUMMARY | 2025-06-07 13:59 | XMS_ITS | Encounter Summary ---
Author Organization [facility] Address [address] [facility] [address] [place] [address] Phone Care Team Providers Care Group Manager Name Role Phone Edmund Cope MD Primary Care Provider [phone] Edmund Cope MD Unavailable [phone] Edmund Cope MD Primary Care Provider +[phone] Shannon Garcia NP Primary Care Provid er Regulo Lundberg MD Unavailable [phone] Carey Boyd Primary Care Provider + [phone] Natasha Cerrato RN Unavailable Shanda Wilkinson MD Unavailable [phone] Regulo Lundberg MD Unavailable +[phone] Shanda Wilkinson MD Unavailable [phone] Shanda Wilkinson MD Unavailable +[phone] Elicia Valentin Primary Care Provider [phone] Encounter Details Date Type Department Care Team (Latest Contact Info) Description 10/25/2019 Transcribe Orders [facility] [address] [place] [address] Dalton Leone, [address] [place] [address] [email or web address] Screening for unspecified condition (Primary [...] Primary documented in this encounter Care Teams Group Manager Relationship Specialty Start Date End Date Edmund Cope MD [email or web address] PCP - General Internal Medicine 05/16/17 01/07/20 Edmund Cope MD [email or web address] PCP - General Internal Medicine 01/08/20 02/14/20 Shannon Garcia NP [address] [place] [address] [email or web address] PCP - General Family Medicine 02/15/20 08/12/20 Carey Boyd PA [address] [place] [address] PCP - General Cna Per Diem 08/13/20 04/23/25 Elicia Valentin PA [address] [place] [address] PCP - General Physician Client Associate 04/24/25 Edmund Cope MD [address] [place] [address] [email or web address] Insurance Assigned Provider 09/19/19 04/19/20 Regulo Lundberg MD [address] [place] [address] [email or web address] Insurance Assigned Provider 04/19/20 09/20/20 Natasha Cerrato, RN [address] [place] [address] [email or web address] Assistant Finance Manager 08/14/20 08/31/20 Shanda Wilkinson MD [address] [place] [address] [email or web address] Insurance Assigned Provider 09/20/20 11/16/20 Regulo Lundberg MD [address] [place] [address] [email or web address] Insurance Assigned Provider 11/16/20 04/18/22 Shanda Wilkinson MD [address] [place] [address] [email or web address] Insurance Assigned Provider 04/18/22 01/18/23 Shanda Wilkinson MD [address] [place] [address] [email or web address] Insurance Assigned Provider 04/18/22 02/19/23 documented as of this encounter Additional Source Comments The information contained in this document represents components of the legal health record. It is not the complete legal health record.[facility]
--- OUTSIDE RECORDS SUMMARY | 2025-06-07 13:59 | XMS_ITS | Encounter Summary ---
Author Organization [facility] Address [address] [facility] [address] [place] [address] Phone Care Team Providers Care Freight And Passenger Agent Name Role Phone Edmund Cope MD Primary Care Provider [phone] Edmund Cope MD Unavailable [phone] Edmund Cope MD Primary Care Provider +[phone] Shannon Garcia NP Primary Care Provid er Regulo Lundberg MD Unavailable [phone] Carey Boyd Primary Care Provider + [phone] Natasha Cerrato RN Unavailable Shanda Wilkinson MD Unavailable [phone] Regulo Lundberg MD Unavailable [phone] Shanda Wilkinson MD Unavailable [phone] Shanda Wilkinson MD Unavailable +[phone] Elicia Valentin Primary Care Provider [phone] Encounter Details Date Type Department Care Team (Late st Contact Info) Description 11/14/2019 Procedure Pass [facility], Ct Scan - [facility] [address] [place] [address] Social History Tobacco Use Types Packs/Day Years [...] on filedocumented in this encounter Care Teams Freight And Passenger Agent Relationship Specialty Start Date End Date Edmund Cope MD [email or web address] PCP - General Internal Medicine 05/16/17 01/07/20 Edmund Cope MD [email or web address] PCP - General Internal Medicine 01/08/20 02/14/20 Shannon Garcia NP [address] [place] [address] [email or web address] PCP - General Family Medicine 02/15/20 08/12/20 Carey Boyd PA [address] [place] [address] PCP - General Entertainment Musician 08/13/20 04/23/25 Elicia Valentin PA [address] [place] [address] PCP - General Physician Box Sealing Inspector 04/24/25 Edmund Cope MD [address] [place] [address] [place] [address] [email or web address] Insurance Assigned Provider 09/19/19 04/19/20 Regulo Lundberg MD [address] [place] [address] [email or web address] Insurance Assigned Provider 04/19/20 09/20/20 Natasha Cerrato, RN [address] [place] [address] [email or web address] Manager Trading 08/14/20 08/31/20 Shanda Wilkinson MD [address] [place] [address] Insurance Assigned Provider 09/20/20 11/16/20 Regulo Lundberg MD [address] [place] [address] [email or web address] Insurance Assigned Provider 11/16/20 04/18/22 Shanda Wilkinson MD [address] [place] [address] Insurance Assigned Provider 04/18/22 01/18/23 Shanda Wilkinson MD [address] [place] [address] [email or web address] Insurance Assigned Provider 04/18/22 02/19/23 documented as of this encounter Additional Source Comments The information contained in this document represents components of the legal health record. It is not the complete legal health record.[facility]
--- OUTSIDE RECORDS SUMMARY | 2025-06-07 13:59 | XMS_ITS | Encounter Summary ---
Author Organization [facility] Address [address] [place] [address] Phone Care Team Providers Care Geology Faculty Member Name Role Phone Regulo Lundberg MD Unavailable Carey Boyd Primary Care Provider [phone] Natasha Cerrato RN Unavailable Shanda Wilkinson MD Unavailable [phone] Regulo Lundberg MD Unavailable [phone] Shanda Wilkinson MD Unavailable [phone] Shanda Wilkinson MD Unavailable [phone] Elicia Valentin Primary Care Provider [phone] Encounter Details Date Type Department Care Team (Late st Contact Info) Description 08/18/2020 Procedure Pass [facility] [address] [facility], [address] [place] [address] Social History Tobacco Use Types [...] on filedocumented in this encounter Care Teams Geology Faculty Member Relationship Specialty Start Date End Date Carey Boyd PA [address] [place] [address] PCP - General Palm Gatherer 08/13/20 04/23/25 Elicia Valentin PA [address] [place] [address] PCP - General Physician Imaging Services Director 04/24/25 Regulo Lundberg MD [address] [place] [address] [email or web address] Insurance Assigned Provider 04/19/20 09/20/20 Natasha Cerrato RN [address] [place] [address] PHC Office Support Assistant 08/14/20 08/31/20 Shanda Wilkinson MD [address] [place] [address] Insurance Assigned Provider 09/20/20 11/16/20 Regulo Lundberg MD [address] [place] [address] [email or web address] Insurance Assigned Provider 11/16/20 04/18/22 Shanda Wilkinson MD [address] [place] [address] [place] [address] [email or web address] Insurance Assigned Provider 04/18/22 01/18/23 Shanda Wilkinson MD [address] [place] [address] [email or web address] Insurance Assigned Provider 04/18/22 02/19/23 documented as of this encounter Additional Source Comments The information contained in this document represents components of the legal health record. It is not the complete legal health record.[facility]
--- OUTSIDE RECORDS SUMMARY | 2025-06-07 13:59 | XMS_ITS | Encounter Summary ---
Author Organization [facility] Address [address] [employer] [facility] [address] [place] [address] Phone Care Team Providers Care [place] Grainer Name Role Phone Shannon Garcia NP Primary Care Provid er Regulo Lundberg MD Unavailable Carey Boyd Primary Care Provider [phone] Natasha Cerrato RN Unavailable Shanda Wilkinson MD Unavailable [phone] Regulo Lundberg MD Unavailable Shanda Wilkinson MD Unavailable Shanda Wilkinson MD Unavailable Elicia Valentin Primary Care Provider [phone] Encounter Details Date Type Department Care Team (Late st Contact Info) Description 07/30/2020 Procedure Pass [facility] Cardiology [address] [facility], [address] [place] [address] Social History Tobacco Use Types [...] on filedocumented in this encounter Care Teams [place] Grainer Relationship Specialty Start Date End Date Shannon Garcia NP [email or web address] PCP - General Family Medicine 02/15/20 08/12/20 Carey Boyd PA [address] [place] [address] PCP - General Mason Liner 08/13/20 04/23/25 Elicia Valentin PA [address] [place] [address] PCP - General Physician Lease Administration Supervisor 04/24/25 Regulo Lundberg MD [address] [place] [address] Insurance Assigned Provider 04/19/20 09/20/20 Natasha Cerrato, FRITZ [address] [place] [address] PHCM Physical Design Engineer 08/14/20 08/31/20 Shanda Wilkinson MD [address] [place] [address] Insurance Assigned Provider 09/20/20 11/16/20 Regulo Lundberg MD [address] [place] [address] [email or web address] Insurance Assigned Provider 11/16/20 04/18/22 Shanda Wilkinson MD [address] [place] [address] [email or web address] Insurance Assigned Provider 04/18/22 01/18/23 Shanda Wilkinson MD [address] [place] [address] [email or web address] Insurance Assigned Provider 04/18/22 02/19/23 documented as of this encounter Additional Source Comments The information contained in this document represents components of the legal health record. It is not the complete legal health record.[facility]
--- OUTSIDE RECORDS SUMMARY | 2025-06-07 14:00 | XMS_ITS | Encounter Summary ---
Author Organization [facility] Address [address] [facility] [address] [place] [address] Phone Care Team Providers Care Unemployment Benefits Claims Taker Name Role Phone Regulo Lundberg MD Unavailable Carey Boyd Primary Care Provider [phone] Shanda Wilkinson MD Unavailable Regulo Lundberg MD Unavailable Shanda Wilkinson MD Unavailable [phone] Shanda Wilkinson MD Unavailable Elicia Valentin Primary Care Provider [phone] Reason for Referral * Physical Therapy (Urgent) - Closed Specialty Diagnoses / Procedures Referred By Meche t Referred To Contact Physical Therapy Diagnoses Encounter for rehabilitation Left Ankle Procedures Evalaute & Treat Guillermo Pineda MD Phone: tel: fax: [email or web address] [facility] [address] [place] [address] Phone: tel: Referral ID Status Reason Start Date Expiration Date Visits Re quested Visits Authorized [id number] Closed 09/08/2020 12/04/2020 17 17 Encounter Details Date Type Department Care Team (Latest Contact Info) Description 09/08/2020 [facility] [address] [place] [address] Guillermo Pineda MD [address] [facility] 2ND [place] [address] [email or web address] Encounter for rehabilitation (Primary Dx) Social [...] Diagnoses Orde r Schedule Ambulatory referral to [facility] Physical Therapy Outpatient Referral Routine Encounter for rehabilitation Ordered: 09/08/2020 documented as of this encounter Visit Diagnoses Diagnosis Encounter for rehabilitation- Primary documented in this encounter Care Teams Unemployment Benefits Claims Taker Relationship Specialty Start Date End Date Carey Boyd PA [address] [place] [address] PCP - General Health And Safety Advisor 08/13/20 04/23/25 Elicia Valentin PA [address] [place] [address] PCP - General Physician Building Maintenance Superintendent 04/24/25 Regulo Lundberg MD [address] [place] [address] [email or web address] Insurance Assigned Provider 04/19/20 09/20/20 Shanda [place] MD [address] [place] [address] [email or web address] Insurance Assigned Provider 09/20/20 11/16/20 Regulo Lundberg MD [address] [place] [address] [email or web address] Insurance Assigned Provider 11/16/20 04/18/22 Shanda Wilkinson MD [address] [place] [address] [email or web address] Insurance Assigned Provider 04/18/22 01/18/23 Shanda Wilkinson MD [address] [place] [address] [email or web address] Insurance Assigned Provider 04/18/22 02/19/23 documented as of this encounter Additional Source Comments The information contained in this document represents components of the legal health record. It is not the complete legal health record.[facility]
--- OUTSIDE RECORDS SUMMARY | 2025-06-07 14:00 | XMS_ITS | Encounter Summary ---
Author Organization [facility] Address [address] [facility] [address] [place] [address] Phone Care Team Providers Care Inspector Insulation Name Role Phone Edmund Cope MD Primary Care Provider [phone] Edmund Cope MD Unavailable [phone] Edmund Cope MD Primary Care Provider +[phone] Shannon Garcia NP Primary Care Provid er Regulo Lundberg MD Unavailable [phone] Carey Boyd Primary Care Provider + [phone] Natsaha Cerrato RN Unavailable Shanda Wilkinson MD Unavailable [phone] Regulo Lundberg MD Unavailable [phone] Shanda Wilkinson MD Unavailable [phone] Shanda Wilkinson MD Unavailable [phone] Elicia Valentin Primary Care Provider [phone] Encounter Details Date Type Department Care Team (Late st Contact Info) Description 11/20/2019 Procedure Pass [facility]AL [facility]OP [address] [place] [address] Social History Tobacco Use Types [...] filedocumented in this encounter Care Teams Inspector Insulation Relationship Specialty Start Date End Date Edmund Cope MD [email or web address] PCP - General Internal Medicine 05/16/17 01/07/20 Edmund Cope MD [email or web address] PCP - General Internal Medicine 01/08/20 02/14/20 Shannon Garcia NP [address] [place] [address] [email or web address] PCP - General Family Medicine 02/15/20 08/12/20 Carey Boyd PA [address] [place] [address] PCP - General Casket Inspector 08/13/20 04/23/25 Elicia Valentin PA [address] [place] [address] PCP - General Physician Collar Sewer 04/24/25 Edmund Cope MD [address] [place] [address] [email or web address] Insurance Assigned Provider 09/19/19 04/19/20 Regulo Lundberg MD [address] [place] [address] Insurance Assigned Provider 04/19/20 09/20/20 Natasha Cerrato, RN [address] [place] [address] [email or web address] [facility] Front End Manager 08/14/20 08/31/20 Shanda Wilkinson MD [address] [place] [address] Insurance Assigned Provider 09/20/20 11/16/20 Regulo Lundberg MD [address] [place] [address] [email or web address] Insurance Assigned Provider 11/16/20 04/18/22 Shanda Wilkinson MD [address] [place] [address] Insurance Assigned Provider 04/18/22 01/18/23 Shanda Wilkinson MD [address] [place] [address] [email or web address] Insurance Assigned Provider 04/18/22 02/19/23 documented as of this encounter Additional Source Comments The information contained in this document represents components of the legal health record. It is not the complete legal health record.[facility]
--- OUTSIDE RECORDS SUMMARY | 2025-06-07 14:00 | XMS_ITS | Encounter Summary ---
Author Organization [facility] Address [address] [facility] [address] [place] [address] Phone Care Team Providers Care Senior Licensing Manager Name Role Phone Edmund Cope MD Primary Care Provider [phone] Edmund Cope MD Unavailable [phone] Edmund Cope MD Primary Care Provider +[phone] Shannon Garcia NP Primary Care Provid er Regulo Lundberg MD Unavailable [phone] Carey Boyd Primary Care Provider + [phone] Natasha Cerrato RN Unavailable Shanda Wilkinson MD Unavailable [phone] Regulo Lundberg MD Unavailable +[phone] Shanda Wilkinson MD Unavailable [phone] Shanda Wilkinson MD Unavailable +[phone] Elicia Valentin Primary Care Provider [phone] Encounter Details Date Type Department Care Team (Late st Contact Info) Description 01/04/2020 Procedure Pass [facility], [address] [id number] Social History Tobacco Use Types Packs/Day Years [...] filedocumented in this encounter Care Teams Senior Licensing Manager Relationship Specialty Start Date End Date Edmund Cope MD [email or web address] PCP - General Internal Medicine 05/16/17 01/07/20 Edmund Cope MD [email or web address] PCP - General Internal Medicine 01/08/20 02/14/20 Shannon Garcia NP [address] [place] [address] [email or web address] PCP - General Family Medicine 02/15/20 08/12/20 Carey Boyd PA [address] [place] [address] PCP - General Ems Director 08/13/20 04/23/25 Elicia Valentin PA [address] [place] [address] PCP - General Physician Hand Tier 04/24/25 Edmund Cope MD [address] [place] [address] [email or web address] Insurance Assigned Provider 09/19/19 04/19/20 Regulo Lundberg MD [address] [place] [address] [email or web address] Insurance Assigned Provider 04/19/20 09/20/20 Natasha Cerrato, RN [address] [place] [address] [email or web address] [facility] Thumb Sewer 08/14/20 08/31/20 Shanda Wilkinson MD [address] [place] [address] 164[address] Insurance Assigned Provider 09/20/20 11/16/20 Regulo Lundberg MD [address] [place] [address] [email or web address] Insurance Assigned Provider 11/16/20 04/18/22 Shanda Wilkinson MD [address] [place] [address] Insurance Assigned Provider 04/18/22 01/18/23 Shanda Wilkinson MD [address] [place] [address] [email or web address] Insurance Assigned Provider 04/18/22 02/19/23 documented as of this encounter Additional Source Comments The information contained in this document represents components of the legal health record. It is not the complete legal health record.[facility]
--- OUTSIDE RECORDS SUMMARY | 2025-06-07 14:00 | XMS_ITS | Encounter Summary ---
Author Organization [facility] Address [address] [facility] [address] [place] [address] Phone Care Team Providers Care Trade Sales Assistant Name Role Phone Carey Boyd Primary Care Provider [phone] Regulo Lundberg MD Unavailable Shanda Wilkinson MD Unavailable [phone] Shanda Wilkinson MD Unavailable [phone] Elicia Valentin Primary Care Provider [phone] Encounter Details Date Type Department Care Team (Late st Contact Info) Description 01/19/2022 Procedure Pass [facility], [facility] [address] [place] [address] Social History Tobacco Use Types Packs/Day Years [...] on filedocumented in this encounter Care Teams Trade Sales Assistant Relationship Specialty Start Date End Date Carey Boyd PA [address] [place] [address] PCP - General Tool Designer Apprentice 08/13/20 04/23/25 Elicia Valentin PA [address] [place] [address] PCP - General Physician Customer Operations Intern 04/24/25 Regulo Lundberg MD [address] [place] [address] 11617 Insurance Assigned Provider 11/16/20 04/18/22 Shanda Wilkinson MD [address] [place] [address] 07813 Insurance Assigned Provider 04/18/22 01/18/23 Shanda Wilkinson MD [address] [place] [address] 0[address] Insurance Assigned Provider 04/18/22 02/19/23 documented as of this encounter Additional Source Comments The information contained in this document represents components of the legal health record. It is not the complete legal health record.[facility]
--- OUTSIDE RECORDS SUMMARY | 2025-06-07 14:00 | XMS_ITS | Encounter Summary ---
Author Organization [facility] Address [address] [place] [address] [place] [address] Phone Care Team Providers Care Digital Computer Operator Name Role Phone Carey Boyd Primary Care Provider [phone] Regulo Lundberg MD Unavailable Shanda Wilkinson MD Unavailable [phone] Shanda Wilkinson MD Unavailable [phone] Elicia Valentin Primary Care Provider [phone] Encounter Details Date Type Department Care Team (Late st Contact Info) Description 10/29/2021 Procedure Pass [facility], [facility] [address] [place] [address] Social History Tobacco Use Types Packs/Day Years [...] on filedocumented in this encounter Care Teams Digital Computer Operator Relationship Specialty Start Date End Date Carey Boyd PA [address] [place] [address] PCP - General Automobile Salesman 08/13/20 04/23/25 Elicia Valentin PA [address] [place] [address] PCP - General Physician Mill Manager 04/24/25 Regulo Lundberg MD [address] [place] [address] 85342 Insurance Assigned Provider 11/16/20 04/18/22 Shanda Wilkinson MD [address] [place] [address] 67[address] Insurance Assigned Provider 04/18/22 01/18/23 Shanda Wilkinson MD [address] [place] [address] [phone] Insurance Assigned Provider 04/18/22 02/19/23 documented as of this encounter Additional Source Comments The information contained in this document represents components of the legal health record. It is not the complete legal health record.[facility]
--- OUTSIDE RECORDS SUMMARY | 2025-06-07 14:00 | XMS_ITS | Encounter Summary ---
Author Organization [facility] Address [address] [facility] [address] [place] [address] Phone Care Team Providers Care Furnace Combination Analyst Name Role Phone Edmund Cope MD Primary Care Provider + Edmund Cope MD Unavailable [phone] Edmund Cope MD Unavailable [phone] Edmund Cope MD Primary Care Provider +[phone] Shannon Garcia NP Primary Care Provid er Regulo Lundberg MD Unavailable [phone] Carey Boyd Primary Care Provider [phone] Natasha Cerrato RN Unavailable Shanda Wilkinson MD Unavailable [phone] Regulo Lundberg MD Unavailable [phone] Shanda Wilkinson MD Unavailable + [phone] Shanda Wilkinson MD Unavailable [phone] Elicia Valentin Primary Care Provider [phone] Encounter Details Date Type Department Care Team (Latest Contact Info) Description 01/24/2018 Transcribe Orders Virtual Department [address] [place] [address] Guillermo Villar MD [address] [place] [address] [email or web address] Elbow pain, left (Primary Dx) Social [...] arm documented in this encounter Care Teams Furnace Combination Analyst Relationship Specialty Start Date End Date Edmund Cope MD [email or web address] PCP - General Internal Medicine 05/16/17 01/07/20 Edmund Cope MD [email or web address] PCP - General Internal Medicine 01/08/20 02/14/20 Shannon Garcia NP [address] [place] [address] [email or web address] PCP - General Family Medicine 02/15/20 08/12/20 Carey Boyd PA [address] [place] [address] PCP - General Dimethylaniline Sulfator Operator 08/13/20 04/23/25 Elicia Valentin PA [address] [place] [address] PCP - General Physician High Pressure Cleaner 04/24/25 Edmund Cope MD [address] [place] [address] [email or web address] Insurance Assigned Provider 10/14/18 03/24/19 Edmund Cope MD [address] [place] [address] [email or web address] Insurance Assigned Provider 09/19/19 04/19/20 Regulo Lundberg MD [address] [place] [address] [email or web address] Insurance Assigned Provider 04/19/20 09/20/20 Natasha Cerrato RN [address] [place] [address] [email or web address] Personnel Training Officer 08/14/20 08/31/20 Shanda Wilkinson MD [address] [place] [address] [email or web address] Insurance Assigned Provider 09/20/20 11/16/20 Regulo Lundberg MD [address] [place] [address] [email or web address] Insurance Assigned Provider 11/16/20 04/18/22 Shanda Wilkinson MD [address] [place] [address] [email or web address] Insurance Assigned Provider 04/18/22 01/18/23 Shanda Wilkinson MD [address] [place] [address] [email or web address] Insurance Assigned Provider 04/18/22 02/19/23 documented as of this encounter Additional Source Comments The information contained in this document represents components of the legal health record. It is not the complete legal health record.[facility]
--- OUTSIDE RECORDS SUMMARY | 2025-06-07 14:00 | XMS_ITS | Encounter Summary ---
Author Organization [facility] Address [address] [facility] [address] [place] [address] Phone Care Team Providers Care Instructional Services Librarian Name Role Phone Edmund Cope MD Unavailable [phone] Shannon Garcia NP Primary Care Provid er Regulo Lundberg MD Unavailable [phone] Carey Boyd Primary Care Provider [phone] Natasha Cerrato RN Unavailable Shanda Wilkinson MD Unavailable Regulo Lundberg MD Unavailable Shanda Wilkinson MD Unavailable Shanda Wilkinson MD Unavailable Elicia Valentin Primary Care Provider [phone] Encounter Details Date Type Department Care Team (Late st Contact Info) Description 02/20/2020 Procedure Pass [facility], [facility] Scan - [facility] [address] [place], [place] [id number] Social History Tobacco Use Types Packs/Day Years [...] on filedocumented in this encounter Care Teams Instructional Services Librarian Relationship Specialty Start Date End Date Shannon Garcia NP [address] [place] [address] [email or web address] PCP - General Family Medicine 02/15/20 08/12/20 Carey Boyd PA [address] [place] [address] PCP - General Strip Deburrer 08/13/20 04/23/25 Elicia Valentin PA [address] [place] [address] PCP - General Physician External Grinder Tender 04/24/25 Edmund Cope MD [address] [place] [address] [email or web address] Insurance Assigned Provider 09/19/19 04/19/20 Regulo Lundberg MD [address] [place] [address] Insurance Assigned Provider 04/19/20 09/20/20 Natasha Cerrato RN [address] [place] [address] [email or web address] [facility] Guard Dance Hall 08/14/20 08/31/20 Shanda Wilkinson MD [address] [place] [address] [email or web address] Insurance Assigned Provider 09/20/20 11/16/20 Regulo Lundberg MD [address] [place] [address] [email or web address] Insurance Assigned Provider 11/16/20 04/18/22 Shanda Wilkinson MD [address] [place] [address] Insurance Assigned Provider 04/18/22 01/18/23 Shanda Wilkinson MD [address] [place] [address] [email or web address] Insurance Assigned Provider 04/18/22 02/19/23 documented as of this encounter Additional Source Comments The information contained in this document represents components of the legal health record. It is not the complete legal health record.[facility]
--- OUTSIDE RECORDS SUMMARY | 2025-06-07 14:00 | XMS_ITS | Encounter Summary ---
Author Organization [facility] Address [address] [facility] [address] [place] [address] Phone Care Team Providers Care Court Bailiff Or Sheriff Name Role Phone Edmund Cope MD Primary Care Provider + Edmund Cope MD Unavailable [phone] Edmund Cope MD Unavailable [phone] Edmund Cope MD Primary Care Provider +[phone] Shannon Garcia NP Primary Care Provid er Regulo Lundberg MD Unavailable [phone] Carey Boyd Primary Care Provider [phone] Natasha Cerrato RN Unavailable Shanda Wilkinson MD Unavailable [phone] Regulo Lundberg MD Unavailable [phone] Shanda Wilkinson MD Unavailable +[phone] Shanda Wilkinson MD Unavailable [phone] Elicia Valentin Primary Care Provider [phone] Encounter Details Date Type Department Care Team (Late st Contact Info) Description 05/13/2017 Ancillary Orders Virtual Department [address] [place], [place] [id number] Carey Boyd PA [address] [id number] Right shoulder pain, unspecified chronicity Social History [...] be due to mild bursitis. POS - [id number] Narrative 05/19/2017 10:31 AM EST HISTORY: Pain, [...] be due to mild bursitis. POS - [id number] Carey BECERRA IMG MR EXTREMITY Final Res ult documented in this encounter Visit Diagnoses Diagnosis Right shoulder pain, unspecified chronicity Right shoulder pain, unspecified chronicity documented in this encounter Care Teams Court Bailiff Or Sheriff Relationship Specialty Start Date End Date Edmund Cope MD PCP - General Internal Medicine 05/16/17 01/07/20 Edmund Cope MD PCP - General Internal Medicine 01/08/20 02/14/20 Shannon Garcia NP [address] [place] [address] [email or web address] PCP - General Family Medicine 02/15/20 08/12/20 Carey Boyd PA [address] [place] [address] PCP - General Bobbin Disker 08/13/20 04/23/25 Elicia Valentin PA [address] [place] [address] PCP - General Physician Licensed Prosthetist 04/24/25 Edmund Cope MD [address] [place] [address] [email or web address] Insurance Assigned Provider 10/14/18 03/24/19 Edmund Cope MD [address] [place] [address] [email or web address] Insurance Assigned Provider 09/19/19 04/19/20 Regulo Lundberg MD [address] [place] [address] Insurance Assigned Provider 04/19/20 09/20/20 Natasha Cerrato RN [address] [place] [address] PHCM Table Worker Packager 08/14/20 08/31/20 Shanda Wilkinson MD [address] [place] [address] [email or web address] Insurance Assigned Provider 09/20/20 11/16/20 Regulo Lundberg MD [address] [place] [address] [email or web address] Insurance Assigned Provider 11/16/20 04/18/22 Shanda Wilkinson MD [address] [place] [address] [email or web address] Insurance Assigned Provider 04/18/22 01/18/23 Shanda Wilkinson MD [address] [place] [address] [email or web address] Insurance Assigned Provider 04/18/22 02/19/23 documented as of this encounter Additional Source Comments The information contained in this document represents components of the legal health record. It is not the complete legal health record.[facility]
--- OUTSIDE RECORDS SUMMARY | 2025-06-07 14:00 | XMS_ITS | Encounter Summary ---
Author Organization [facility] Address [address] [facility] [address] [place] [address] Phone Care Team Providers Care Gas Operations Analyst Name Role Phone Edmund Cope MD Primary Care Provider + Edmund Cope MD Unavailable [phone] Edmund Cope MD Unavailable [phone] Edmund Cope MD Primary Care Provider +[phone] Sahnnon Garcia NP Primary Care Provid er Regulo Lundberg MD Unavailable +[phone] Carey Boyd Primary Care Provider [phone] Natasha Cerrato RN Unavailable Shanda Wilkinson MD Unavailable [phone] Regulo Lundberg MD Unavailable [phone] Shanda Wilkinson MD Unavailable [phone] Shanda Wilkinson MD Unavailable [phone] Elicia Valentin Primary Care Provider [phone] Encounter Details Date Type Department Care Team (Late st Contact Info) Description 08/09/2018 Ancillary Orders Virtual Department [address] [place], [place] [phone] Aniya Jimenez MD [address] [facility] [address] [place] [address] Abnormal involuntary movement Social History Tobacco Use [...] Modality EEG Narrative 08/14/2018 3:34 PM EST [facility] AFFILIATE ELECTROENCEPHALOGRAPHY (EEG) LAB INTRODUCTION: The patient [...] asymmetries occurred. MD Sameer Berrios Neurology us Anyia Jimenez MD NEUROLOGY ORDERABLES Fi nal Result documented in this encounter Visit Diagnoses Diagnosis Abnormal involuntary movement Abnormal involuntary movements Abnormal involuntary movement Abnormal involuntary movements documented in this encounter Care Teams Gas Operations Analyst Relationship Specialty Start Date End Date Edmund Cope MD [email or web address] PCP - General Internal Medicine 05/16/17 01/07/20 Edmund Cope MD [email or web address] PCP - General Internal Medicine 01/08/20 02/14/20 Shannon Garcia NP [address] [place] [address] [email or web address] PCP - General Family Medicine 02/15/20 08/12/20 Carey Boyd PA [address] [place] [address] PCP - General Toter 08/13/20 04/23/25 Elicia Valentin PA [address] [place] [address] PCP - General Physician Photographic Supervisor 04/24/25 Edmund Cope MD [address] [place] [address] [email or web address] Insurance Assigned Provider 10/14/18 03/24/19 Edmund Cope MD [address] [place] [address] [email or web address] Insurance Assigned Provider 09/19/19 04/19/20 Regulo Lundberg MD [address] [place] [address] [email or web address] Insurance Assigned Provider 04/19/20 09/20/20 Natasha Cerrato RN [address] [place] [address] [email or web address] Molecular Biology Professor 08/14/20 08/31/20 Shanda Wilkinson MD [address] [place] [address] [email or web address] Insurance Assigned Provider 09/20/20 11/16/20 Regulo Lundberg MD [address] [place] [address] [email or web address] Insurance Assigned Provider 11/16/20 04/18/22 Shanda Wilkinson MD [address] [place] [address] [email or web address] Insurance Assigned Provider 04/18/22 01/18/23 Shanda Wilkinson MD [address] [place] [address] [email or web address] Insurance Assigned Provider 04/18/22 02/19/23 documented as of this encounter Additional Source Comments The information contained in this document represents components of the legal health record. It is not the complete legal health record.[facility]
--- OUTSIDE RECORDS SUMMARY | 2025-06-07 14:00 | XMS_ITS | Encounter Summary ---
Author Organization [facility] Address [address] [employer] [facility] [address] [place] [address] Phone Care Team Providers Care Vice President Of Engineering Name Role Phone Regulo Lundberg MD Unavailable [phone] Carey Boyd Primary Care Provider [phone] Natasha Cerrato RN Unavailable Shanda Wilkinson MD Unavailable Regulo Lundberg MD Unavailable Shanda Wilkinson MD Unavailable Shanda Wilkinson MD Unavailable Elicia Valentin Primary Care Provider [phone] Encounter Details Date Type Department Care Team (Late st Contact Info) Description 08/25/2020 Procedure Pass [facility] [address] [place] [address] Social History Tobacco Use Types [...] in this encounter Care Teams Vice President Of Engineering Relationship Specialty Start Date End Date Carey Boyd PA [address] [place] [address] PCP - General Manager Intern 08/13/20 04/23/25 Elicia Valentin PA [address] [place] [address] PCP - General Physician Knife Sharpener 04/24/25 Regulo Lundberg MD [address] [place] [address] [email or web address] Insurance Assigned Provider 04/19/20 09/20/20 Natasha Cerrato RN [address] [place] [address] PHC Manager Graphic 08/14/20 08/31/20 Shanda Wilkinson MD [address] [place] [address] Insurance Assigned Provider 09/20/20 11/16/20 Regulo Lundberg MD [address] [place] [address] [email or web address] Insurance Assigned Provider 11/16/20 04/18/22 Shanda Wilkinson MD [address] [place] [address] [email or web address] Insurance Assigned Provider 04/18/22 01/18/23 Shanda Wilkinson MD [address] [place] [address] [email or web address] Insurance Assigned Provider 04/18/22 02/19/23 documented as of this encounter Additional Source Comments The information contained in this document represents components of the legal health record. It is not the complete legal health record.[facility]
--- OUTSIDE RECORDS SUMMARY | 2025-06-07 14:00 | XMS_ITS | Encounter Summary ---
Author Organization [facility] Address [address] [facility] [address] [place] [address] Phone Care Team Providers Care Product Technology Scientist Name Role Phone Edmund Cope MD Primary Care Provider [phone] Edmund Cope MD Unavailable [phone] Edmund Cope MD Primary Care Provider [phone] Shannon Garcia NP Primary Care Provid er Regulo Lundberg MD Unavailable [phone] Carey Boyd Primary Care Provider + [phone] Natasha Cerrato RN Unavailable Shanda Wilkinson MD Unavailable [phone] Regulo Lundberg MD Unavailable +[phone] Shanda Wilkinson MD Unavailable [phone] Shanda Wilkinson MD Unavailable +[phone] Elicia Valentin Primary Care Provider [phone] Encounter Details Date Type Department Care Team (Late st Contact Info) Description 11/14/2019 Procedure Pass [facility], Ct Scan - [facility] [address] [place] [address] Social History Tobacco Use Types Packs/Day Years [...] filedocumented in this encounter Care Teams Product Technology Scientist Relationship Specialty Start Date End Date Edmund Cope MD [email or web address] PCP - General Internal Medicine 05/16/17 01/07/20 Edmund Cope MD [email or web address] PCP - General Internal Medicine 01/08/20 02/14/20 Shannon Garcia NP [address] [place] [address] [email or web address] PCP - General Family Medicine 02/15/20 08/12/20 Carey Boyd PA [address] [place] [address] PCP - General Burr Mill Operator 08/13/20 04/23/25 Elicia Valentin PA [address] [place] [address] PCP - General Physician Sample Worker 04/24/25 Edmund Cope MD [address] [place] [address] [place] [address] [email or web address] Insurance Assigned Provider 09/19/19 04/19/20 Regulo Lundberg MD [address] [place] [address] [email or web address] Insurance Assigned Provider 04/19/20 09/20/20 Natasha Cerrato, RN [address] [place] [address] [email or web address] [facility] Caustic Strength Inspector 08/14/20 08/31/20 Shanda Wilkinson MD [address] [place] [address] Insurance Assigned Provider 09/20/20 11/16/20 Regulo Lundberg MD [address] [place] [address] [email or web address] Insurance Assigned Provider 11/16/20 04/18/22 Shanda Wilkinson MD [address] [place] [address] Insurance Assigned Provider 04/18/22 01/18/23 Shanda Wilkinson MD [address] [place] [address] [email or web address] Insurance Assigned Provider 04/18/22 02/19/23 documented as of this encounter Additional Source Comments The information contained in this document represents components of the legal health record. It is not the complete legal health record.[facility]
--- OUTSIDE RECORDS SUMMARY | 2025-06-07 14:00 | XMS_ITS | Encounter Summary ---
Author Organization [facility] Address [address] [facility] [address] [place] [address] Phone Care Team Providers Care Hydrogenation Operator Name Role Phone Edmund Cope MD Primary Care Provider + Edmund Cope MD Unavailable [phone] Edmund Cope MD Unavailable [phone] Edmund Cope MD Primary Care Provider + Shannon Garcia NP Primary Care Provid er Regulo Lundberg MD Unavailable [phone] Carey Boyd Primary Care Provider [phone] Natasha Cerrato RN Unavailable Shanda Wilkinson MD Unavailable [phone] Regulo Lundberg MD Unavailable [phone] Shanda Wilkinson MD Unavailable [phone] Shanda Wilkinson MD Unavailable [phone] Elicia Vaelntin Primary Care Provider +[phone] Encounter Details Date Type Department Care Team (Late st Contact Info) Description 05/13/2017 Procedure Pass [facility], [facility] [address] [place] [address] Social History Tobacco Use Types Packs/Day Years [...] on filedocumented in this encounter Care Teams Hydrogenation Operator Relationship Specialty Start Date End Date Edmund Cope MD [email or web address] PCP - General Internal Medicine 05/16/17 01/07/20 Edmund Cope MD [email or web address] PCP - General Internal Medicine 01/08/20 02/14/20 Shannon Garcia NP [address] [place] [address] [email or web address] PCP - General Family Medicine 02/15/20 08/12/20 Carey Boyd PA [address] [place] [address] PCP - General Special Certificate Dictator 08/13/20 04/23/25 Elicia Valentin PA [address] [place] [address] PCP - General Physician Spike Machine Feeder 04/24/25 Edmund Cope MD [address] [place] [address] [email or web address] Insurance Assigned Provider 10/14/18 03/24/19 Edmund Cope MD [address] [place] [address] [email or web address] Insurance Assigned Provider 09/19/19 04/19/20 Regulo Lundberg MD [address] [place] [address] [email or web address] Insurance Assigned Provider 04/19/20 09/20/20 Natasha Cerrato RN [address] [place] [address] [email or web address] Wire Stitcher Machine 08/14/20 08/31/20 Shanda Wilkinson MD [address] [place] [address] [email or web address] Insurance Assigned Provider 09/20/20 11/16/20 Regulo Lundberg MD [address] [place] [address] [email or web address] Insurance Assigned Provider 11/16/20 04/18/22 Shanda Wilkinson MD [address] [place] [address] [email or web address] Insurance Assigned Provider 04/18/22 01/18/23 Shanda Wilkinson MD [address] [place] [address] [email or web address] Insurance Assigned Provider 04/18/22 02/19/23 documented as of this encounter Additional Source Comments The information contained in this document represents components of the legal health record. It is not the complete legal health record.[facility]
--- OUTSIDE RECORDS SUMMARY | 2025-06-07 14:00 | XMS_ITS | Encounter Summary ---
Author Organization [facility] Address [address] [facility] [address] [place] [address] Phone Care Team Providers Care Coil Binder Name Role Phone Edmund Cope MD Primary Care Provider + Edmund Cope MD Unavailable [phone] Edmund Cope MD Unavailable [phone] Edmund Cope MD Primary Care Provider + Shannon Garcia NP Primary Care Provid er Regulo Lundberg MD Unavailable [phone] Carey Boyd Primary Care Provider [phone] Natasha Cerrato RN Unavailable Shanda Wilkinson MD Unavailable +[phone] Regulo Lundberg MD Unavailable [phone] Shanda Wilkinson MD Unavailable [phone] Shanda Wilkinson MD Unavailable [phone] Elicia Valentin Primary Care Provider [phone] Encounter Details Date Type Department Care Team (Late st Contact Info) Description 11/15/2018 Procedure Pass [facility], [facility] [address] [place] [address] Social History Tobacco Use Types Packs/Day Years [...] on filedocumented in this encounter Care Teams Coil Binder Relationship Specialty Start Date End Date Edmund Cope MD [email or web address] PCP - General Internal Medicine 05/16/17 01/07/20 Edmund Cope MD [email or web address] PCP - General Internal Medicine 01/08/20 02/14/20 Shannon Garcia NP [address] [place] [address] [email or web address] PCP - General Family Medicine 02/15/20 08/12/20 Carey Boyd PA [address] [place] [address] PCP - General Sweatband Drummer 08/13/20 04/23/25 Elicia Valentin PA [address] [place] [address] PCP - General Physician Surgery Center Administrator 04/24/25 Edmund Cope MD [address] [place] [address] [email or web address] Insurance Assigned Provider 10/14/18 03/24/19 Edmund Cope MD [address] [place] [address] [email or web address] Insurance Assigned Provider 09/19/19 04/19/20 Regulo Ludnberg MD [address] [place] [address] [email or web address] Insurance Assigned Provider 04/19/20 09/20/20 Natasha Cerrato RN [address] [place] [address] [email or web address] Quality Assurance Project Manager 08/14/20 08/31/20 Shanda Wilkinson MD [address] [place] [address] [email or web address] Insurance Assigned Provider 09/20/20 11/16/20 Regulo Lundberg MD [address] [place] [address] [email or web address] Insurance Assigned Provider 11/16/20 04/18/22 Shanda Wilkinson MD [address] [place] [address] [email or web address] Insurance Assigned Provider 04/18/22 01/18/23 Shanda Wilkinson MD [address] [place] [address] [email or web address] Insurance Assigned Provider 04/18/22 02/19/23 documented as of this encounter Additional Source Comments The information contained in this document represents components of the legal health record. It is not the complete legal health record.[facility]
--- OUTSIDE RECORDS SUMMARY | 2025-06-07 14:00 | XMS_ITS | Encounter Summary ---
Author Organization [facility] Address [address] [employer] [facility] [address] [place] [address] Phone Care Team Providers Care District Branch Manager Name Role Phone Carey Boyd Primary Care Provider [phone] Regulo Lundberg MD Unavailable Shanda Wilkinson MD Unavailable Shanda Wilkinson MD Unavailable [phone] Elicia Valentin Primary Care Provider [phone] Encounter Details Date Type Department Care Team (Late st Contact Info) Description 12/08/2021 Procedure Pass [facility], [place] [address] [place] [address] Social History Tobacco Use Types Packs/Day Years [...] on filedocumented in this encounter Care Teams District Branch Manager Relationship Specialty Start Date End Date Carey Boyd PA [address] [place] [address] PCP - General Building Maintenance Mechanic 08/13/20 04/23/25 Elicia Valentin PA [address] [place] [address] PCP - General Physician Windows Server Specialist 04/24/25 Regulo Lundberg MD [address] [place] [address] Insurance Assigned Provider 11/16/20 04/18/22 Shanda Wilkinson MD [address] [place] [address] Insurance Assigned Provider 04/18/22 01/18/23 Shanda Wilkinson MD [address] [place] [address] Insurance Assigned Provider 04/18/22 02/19/23 documented as of this encounter Additional Source Comments The information contained in this document represents components of the legal health record. It is not the complete legal health record.[facility]
--- OUTSIDE RECORDS SUMMARY | 2025-06-07 14:00 | XMS_ITS | Encounter Summary ---
Author Organization [facility] Address [address] [place] [address] Phone Care Team Providers Care White Sugar Supervisor Name Role Phone Elicia Valentin Primary Care Provider [phone] Encounter Details Date Type Department Care Team (Late st Contact Info) Description 05/21/2025 Orders Only [facility] Orthopaedic Surgery Foot and Ankle Service [address] [facility], 3rd Floor, [address] [place] [address] Ludy Morales [address] [place] [address] [email or web address] Pain (Primary Dx) Social History [...] pain documented in this encounter Care Teams White Sugar Supervisor Relationship Specialty Start Date End Date Elicia Valentin PA [address] [place] [address] PCP - General Physician Dyeing Machine Feeder 04/24/25 documented as of this encounter Additional Source Comments The information contained in this document represents components of the legal health record. It is not the complete legal health record.[facility]
--- OUTSIDE RECORDS SUMMARY | 2025-06-07 14:00 | XMS_ITS | Encounter Summary ---
Author Organization [facility] Address [address] [facility] [address] [place] [address] Phone Care Team Providers Care Cut Roll Machine Offbearer Name Role Phone Edmund Cope MD Unavailable [phone] Shannon Garcia NP Primary Care Provid er Regulo Lundberg MD Unavailable [phone] Carey Boyd Primary Care Provider [phone] Natasha Cerrato RN Unavailable Shanda Wilkinson MD Unavailable Regulo Lundberg MD Unavailable [phone] Shanda Wilkinson MD Unavailable [phone] Shanda Wilkinson MD Unavailable [phone] Elicia Valentin Primary Care Provider [phone] Reason for Referral * Outpatient Procedure - Closed Specialty Diagnoses / Procedures Referred By Contcoco t Referred To Contact Radiology Diagnoses Nausea Vomiting without nausea, intractability of vomiting not specified, unspecified vomiting type Abnormal weight loss Procedures NM Gastric Emptying Moise Gomez MD Phone: tel: fax: mailto: Referral ID Status Reason Start Date Expiration Date Visits Re quested Visits Authorized [id number] Closed 03/11/2020 03/11/2021 1 1 Encounter Details Date Type Department Care Team (Latest Contact Info) Description 03/11/2020 Transcribe Orders Virtual Department 30 [place] [address] Moise Gomez MD [address] [address] [email or web address] Nausea (Primary Dx); Vomiting without [...] activity is still present in the stomach (fusbxs89-85%) At two hours 45% of activity is still present in the stomach (nqdkev18-77%) At four hours is 2.5% of activity is still present in the stomach (normal0-10%) IMPRESSION: Normal gastric emptying. POS - [id number] Moise Gomez MD IMG TN ABDOMEN Final Result documented in this encounter Visit Diagnoses Diagnosis Nausea- Primary Nausea alone Vomiting without nausea, intractability of vomiting not specified, unspecified vomiting type Abnormal weight loss Loss of weight Nausea Nausea alone Vomiting without nausea, intractability of vomiting not specified, unspecified vomiting type Abnormal weight loss Loss of weight documented in this encounter Care Teams Cut Roll Machine Offbearer Relationship Specialty Start Date End Date Shannon Garcia NP [address] [place] [address] [email or web address] PCP - General Family Medicine 02/15/20 08/12/20 Carey Boyd PA [address] [place] [address] PCP - General Account Strategist 08/13/20 04/23/25 Elicia Valentin PA [address] [place] [address] PCP - General Physician Rn Oncology 04/24/25 Edmund Cope MD [address] [place] [address] [email or web address] Insurance Assigned Provider 09/19/19 04/19/20 Regulo Lundberg MD [address] [place] [address] [email or web address] Insurance Assigned Provider 04/19/20 09/20/20 Natasha Cerrato RN [address] [place] [address] [email or web address] Physician Assistant Certified 08/14/20 08/31/20 Shanda Wilkinson MD [address] [place] [address] [email or web address] Insurance Assigned Provider 09/20/20 11/16/20 Regulo Lundberg MD [address] [place] [address] [email or web address] Insurance Assigned Provider 11/16/20 04/18/22 Shanda Wilkinson MD [address] [place] [address] Insurance Assigned Provider 04/18/22 01/18/23 Shanda Wilkinson MD [address] [place] [address] [email or web address] Insurance Assigned Provider 04/18/22 02/19/23 documented as of this encounter Additional Source Comments The information contained in this document represents components of the legal health record. It is not the complete legal health record.[facility]
--- OUTSIDE RECORDS SUMMARY | 2025-06-07 14:00 | XMS_ITS | Encounter Summary ---
Author Organization [facility] Address [address] [facility] [address] [place] [address] Phone Care Team Providers Care Cloth Shrinking Machine Operator Name Role Phone Carey Boyd Primary Care Provider [phone] Regulo Lundberg MD Unavailable Shanda Wilkinson MD Unavailable Shanda Wilkinson MD Unavailable Elicia Valentin Primary Care Provider [phone] Encounter Details Date Type Department Care Team (Late st Contact Info) Description 12/08/2021 Procedure Pass [facility] Interventional X-ray Imaging, [place] [address] [place] [address] Social History Tobacco Use Types Packs/Day Years [...] on filedocumented in this encounter Care Teams Cloth Shrinking Machine Operator Relationship Specialty Start Date End Date Carey Boyd PA [address] [place] [address] PCP - General Teacher Of Family And Consumer Science 08/13/20 04/23/25 Elicia Valentin PA [address] [place] [address] PCP - General Physician Mother Repairer 04/24/25 Regulo Lundberg MD [address] [place] [address] Insurance Assigned Provider 11/16/20 04/18/22 Shanda Wilkinson MD [address] [place] [address] Insurance Assigned Provider 04/18/22 01/18/23 Shanda Wilkinson MD [address] [place] [address] Insurance Assigned Provider 04/18/22 02/19/23 documented as of this encounter Additional Source Comments The information contained in this document represents components of the legal health record. It is not the complete legal health record.[facility]
--- OUTSIDE RECORDS SUMMARY | 2025-06-07 14:00 | XMS_ITS | Encounter Summary ---
Author Organization [facility] Address [address] [facility] [address] [place] [address] Phone Care Team Providers Care Primary Care Nurse Practitioner Name Role Phone Edmund Cope MD Primary Care Provider + Edmund Cope MD Unavailable [phone] Edmund Cope MD Primary Care Provider + Shannon Garcia NP Primary Care Provid er Regulo Lundberg MD Unavailable [phone] Carey Boyd Primary Care Provider [phone] Natasha Cerrato RN Unavailable Shanda Wilkinson MD Unavailable [phone] Regulo Lundberg MD Unavailable [phone] Shanda Wilkinson MD Unavailable [phone] Shanda Wilkinson MD Unavailable [phone] Elicia Valentin Primary Care Provider [phone] Reason for Referral * Physical Therapy (Routine) - Closed Specialty Diagnoses / Procedures Referred By Contac t Referred To Contact Physical Therapy Diagnoses Encounter for rehabilitation Left Ankle Procedures Evaluate & Treat Guillermo Pineda MD Phone: tel: fax: mailto:[email or web address] [facility] [address] [place] [address] Phone: tel: Referral ID Status Reason Start Date Expiration Date Visits Re quested Visits Authorized [id number] Closed 12/06/2019 06/12/2020 20 20 Encounter Details Date Type Department Care Team (Latest Contact Info) Description 12/06/2019 Transcribe Orders [facility] [address] [place] [address] Guillermo Pineda MD [address] [facility] 2ND [place] [address] [email or web address] Encounter for rehabilitation (Primary Dx) Social [...] Diagnoses Orde r Schedule Ambulatory referral to [facility] Physical Therapy Outpatient Referral Routine Encounter for rehabilitation Ordered: 12/06/2019 documented as of this encounter Visit Diagnoses Diagnosis Encounter for rehabilitation- Primary documented in this encounter Care Teams Primary Care Nurse Practitioner Relationship Specialty Start Date End Date Edmund Cope MD PCP - General Internal Medicine 05/16/17 01/07/20 Edmund Cope MD PCP - General Internal Medicine 01/08/20 02/14/20 Shannon Garcia, RICARDO [address] [place] [address] [email or web address] PCP - General Family Medicine 02/15/20 08/12/20 Carey Boyd PA [address] [place] [address] PCP - General Sales Assoc 08/13/20 04/23/25 Elicia Valentin PA [address] [place] [address] PCP - General Physician Tripper 04/24/25 Edmund Cope MD [address] [place] [address] Insurance Assigned Provider 09/19/19 04/19/20 Regulo Lundberg MD [address] [place] [address] Insurance Assigned Provider 04/19/20 09/20/20 Natasha Cerrato, FRITZ [address] [place] [address] PHCM Hims Coder 08/14/20 08/31/20 Shanda Wilkinson MD [address] [place] [address] Insurance Assigned Provider 09/20/20 11/16/20 Regulo Lundberg MD [address] [place] [address] [email or web address] Insurance Assigned Provider 11/16/20 04/18/22 Shanda Wilkinson MD [address] [place] [address] [email or web address] Insurance Assigned Provider 04/18/22 01/18/23 Shanda Wilkinson MD [address] [place] [address] [email or web address] Insurance Assigned Provider 04/18/22 02/19/23 documented as of this encounter Additional Source Comments The information contained in this document represents components of the legal health record. It is not the complete legal health record.[facility]
--- OUTSIDE RECORDS SUMMARY | 2025-06-07 14:00 | XMS_ITS | Clinical Summary ---
Author Organization [facility] Address [address] [employer] [facility] [address] [place] [address] Phone Care Team Providers Care Personalization Specialist Name Role Phone Elicia Valentin Primary Care Provider [phone] Allergies Active Allergy Reactions Criticality Noted Date [...] Description 05/22/2025 10:45 AM EST Office Visit [facility] [address] [facility], 3rd Floor, [address] [place] [address] Guillermo Pineda MD Left ankle instability (Primary Dx) 05/21/2025 Ancillary Orders [facility] [address] [place] [address] Unknown, Unknown, 05/21/2025 Ancillary Orders [facility] [address] [place] [address] Unknown, Unknown, 05/21/2025 Ancillary Orders [facility] [address] [place] [address] Unknown, Andrea, 05/21/2025 Ancillary Orders [facility] [address] [place] [address] Unknown, Andrea, 05/21/2025 Ancillary Orders [facility] [address] [place] [address] Unknown, Andrea, 05/21/2025 Ancillary Orders [facility] [address] [place] [address] Unknown, Andrea, 05/21/2025 Orders Only [facility] [address] [facility], 3rd Floor, [address] [place] [address] Ludy Morales Pain (Primary Dx) 05/13/2025 12:05 AM EST - 05/13/2025 11:59 PM EST Hospital Encounter [facility] [address] [place] [address] Unknown, Unknown, Discharge Disposition: Home or Self Care 05/13/2025 - 05/13/2025 12:04 AM EST Hospital Encounter [facility] [address] [place] [address] Unknown, MD Andrea Discharge Disposition: Home or Self Care 03/26/2025 12:05 AM EDT - 03/26/2025 11:59 PM EDT Hospital Encounter [facility] [address] [place] [address] Unknown, MD Andrea Discharge Disposition: Home or Self Care 03/26/2025 - 03/26/2025 12:04 AM EDT Hospital Encounter [facility] [address] [place] [address] Unknown, Unknown, MD Discharge Disposition: Home or [...] this topic Medical Devices Implanted Type Area Skate Boarder Device Identifier Shelf Expiration Date Model / Serial / Lot [place] Suture 2 2.3mm 2strand Force Fiber Iconix Intellibraid -Order In Multiples Of 5 - [id number] Implanted:Qty: 3 on 07/07/2017 by Vernon Moses DO at [facility] [employer] Right: Shoulder [employer] 11/11/2018 [id number] / / [id number] Screw Bone 3.5x14mm Cortex Self Tapping Fully Threaded Hex Head Ss - [id number] Implanted:Qty: 1 on 11/20/2019 by Guillermo Pineda MD at [facility] Left: Ankle SYNTHES 204.814 / / AUTO#3 LOAD #1 Bone Plate 141x3.5mm 12 Hole Tubular One Third With Collar Lcp Ss - [id number] Implanted:Qty: 1 on 11/20/2019 by Guillermo Pineda MD at [facility] Left: Ankle SYNTHES 241.421 / / AUTO#3 LOAD #1 Screw Bone 2.7x18mm Cortical Self Tapping Fully Threaded Hex Head Ss Bx/1ea - [id number] Implanted:Qty: 1 on 11/20/2019 by Guillermo Pineda MD at [facility] Left: Ankle SYNTHES 202.818 / / AUTO#3 LOAD #1 Screw Bone 2.7x20mm Cortical Self Tapping Fully Threaded Hex Head Ss - [id number] Implanted:Qty: 1 on 11/20/2019 by Guillermo Pineda MD at [facility] Left: Ankle SYNTHES 202.820 / / AUTO#3 LOAD #1 Screw Bone 12x3.5mm Compression Ss Locking Self Tapping Full Thread T15 Stardrive Recess - [id number] Implanted:Qty: 1 on 11/20/2019 by Guillermo Pineda MD at [facility] Left: Ankle SYNTHES 212.102 / / AUTO#3 LOAD #1 Screw Bone 3.5x12mm Cortex Self Tapping Fully Threaded Hex Head Ss - [id number] Implanted:Qty: 2 on 11/20/2019 by Guillermo Pineda MD at [facility] Left: Ankle SYNTHES 204.812 / / AUTO#3 LOAD #1 Screw Bone 3.5x45mm Cortex Self Tapping Fully Threaded Hex Head Ss - [id number] Implanted:Qty: 1 on 11/20/2019 by Guillermo Pineda MD at [facility] Left: Ankle SYNTHES 204.845 / / AUTO#3 LOAD #1 Screw Bone 3.5x50mm Cortex Ss Self Tapping Hexagonal Socket - [id number] Implanted:Qty: 2 on 11/20/2019 by Guillermo Pineda [place] [facility] [place] Ankle SYNTHES 204.850 / / AUTO#3 LOAD #1 Washer Bone 7.0mm Sm Screw Cannulated Ss - Ssterilizer 4, Load 3: Sterilized 2020 Implanted:Qty: 2 on 08/25/2020 by Guillermo Pineda [place] [facility] [place]: Foot SYNTHES 219.98 / STERILIZER 4, LOAD 3: STERILIZED 2020 / Screw Bone 30x3.5mm Cannulated Ss Full Thread Hexagonal Socket Flat Head - Discontinued Per Supplier - Ssterilizer 4, Load 3: Sterilized 2020 Implanted:Qty: 1 on 08/25/2020 by Guillermo Pineda MD at [facility] Left: Foot SYNTHES 205.230 / STERILIZER 4, LOAD 3: STERILIZED 2020 / Athol Suture 4.5mm Arthroscopy Reelx Stt Peek Stainless Steel Core Knotless Sharp Tip Expandable Sterile Bx/5ea - [id number] Implanted:Qty: 1 on 07/07/2017 by Vernon Moses DO at [facility] Right: Shoulder [employer] 05/24/2019 [id number] / / [id number] Graft Bone 1.00ml Biocartilage Synthetic Matrix [place] Extracellular Filler Syringe - [id number] Implanted:Qty: 1 on 11/20/2019 by Guillermo Pineda MD at [facility] Left: Ankle [employer] 04/11/2024 [id number] / [id number] / Athol Suture 2.9mmx12.5 Pushlock Biocomposite Swivelock Vented Bx/5ea - Must Be Ordered In Multiples Of 5's - [id number] Implanted:Qty: 2 on 11/20/2019 by Guillermo Pineda MD at [facility] Left: Ankle [employer] 09/10/2021 [id number] / / [id number] Kit 1.5cc Graft Bone Augment Synthetic Bioabsorbable - [id number] Implanted:Qty: 1 on 11/20/2019 by Guillermo Pineda MD at [facility] Right: Ankle [employer] 05/12/2021 [id number] / / [id number] Guidewire Pipo [id number] Non Threaded - Ssterilizer4, Load3: Sterilized Implanted:Qty: 2 on 08/25/2020 by Guillermo Pineda MD at [facility] Left: Foot SYNTHES 900.721 / STERILIZER4, LOAD3: STERILIZED / 3.5mm Cannulated Screws, Fully Threaded Implanted:Qty: 1 on 08/25/2020 by Guillermo Pineda MD at [facility] Left: Foot 205.224 / / Description:Sterilizer # nicole d #3 August 11, 2020 Explanted Type Area Skate Boarder Device Identifier Shelf Expiration Date Model / Serial / Lot Screw Bone 18x3.5mm Compression Ss Locking Self Tapping Full Thread T15 Stardrive Recess - [id number] Implanted:Qty: 1 by Guillermo Pineda MD Explanted:Qty: 1 on 11/20/2019 by Guillermo Pined[place] [facility] [place]: Ankle SYNTHES 212.105 / / AUTO#3 LOAD #1 Screw Bone 3.5x14mm Cortex Self Tapping Fully Threaded Hex Head Ss - [id number] Implanted:Qty: 1 Explanted:Qty: 1 on [place]20[place] [facility] [place]: Ankle [...] (NO INTERPRETATION) Routine 03/26/2025 12:00 AM EDT PAP TEST Routine 11/16/2023 12:00 AM EDT from Last 3 Months or Most Recently Relevant to Health Maintenance Results * MRI Lower Extremity Outside (No Interpretation) (05/13/2025 12:05 AM EST) Narrative [facility] - 05/21/2025 3:54 PM EST This study is for PACS storage only and not for interpretation. us Unknown Unknown MD IMG OUTSIDE IMAGING W/OUT INT ERPRETATION Final Result Performing Organization Address [facility] de Phone Number [facility] * MRI Lower Extremity Outside (No Interpretation) (05/13/2025 12:00 AM EST) Narrative [facility] - 05/21/2025 3:54 PM EST This study is for PACS storage only and not for interpretation. us Unknown Unknown MD IMG OUTSIDE IMAGING W/OUT INT ERPRETATION Final Result Performing Organization Address [facility] de Phone Number [facility] * XR Lower Extremity Outside (No Interpretation) (03/26/2025 12:05 AM EDT) Narrative [facility] - 05/21/2025 3:55 PM EST This study is for PACS storage only and not for interpretation. us Unknown Unknown MD IMG OUTSIDE IMAGING W/OUT INT ERPRETATION Final Result Performing Organization Address City/[facility] de Phone Number [facility] * XR Lower Extremity Outside (No Interpretation) (03/26/2025 12:00 AM EDT) Narrative [facility] - 05/21/2025 3:54 PM EST This study is for PACS storage only and not for interpretation. us Unknown Unknown MD IMG OUTSIDE IMAGING W/OUT INT ERPRETATION Final Result [facility] IMG INTERFACES * Pap Test (11/16/2023 12:00 AM EDT) Report [address] [address] Weight Inspector: Jennifer Boyer MD TAPE WEAVER Cytology Report FINAL DIAGNOSIS A. PAP SMEAR (THIN PREP) CE: SPECIMEN ADEQUACY: Satisfactory for evaluation; transformation zone present. INTERPRETATION: NEGATIVE FOR INTRAEPITHELIAL LESION OR MALIGNANCY. This specimen was analyzed by the automated ThinPrep Imaging System (Queryday.) and the selected mishra were reviewed by a fashion patternmaker. Electronically Signed Out By: NICOLE Herndon(ASCP) The [...] 59, 66, 68) Note: Testing performed by [employer] Onclarity HR-HPV analysis. Clinical correlation is advised. This HPV test was performed at [facility], [address] [place] [address]. This test has been FDA approved for both SurePath and ThinPrep cervical cytology specimens. The accuracy and precision of this test for all other specimen sources has been verified in the Cytopathology Laboratory of the [facility] and has not been cleared or approved by the U.S. Food and Drug Administration. Clinical correlation is advised. CLINICAL HISTORY Date of Last Menstrual Period: 11-06-2023 Other Clinical Conditions: Screening Pap SPECIMEN SOURCE A: PAP SMEAR (THIN PREP) CE Patient Name: IVAN WILKINSON : 1990 (Age: 33) Sex: F Institution: [facility] Location: [facility] Date of Collection: 11/16/2023 Date of Reported: 11/22/2023 13:06 Results to: Shannon Garcia STAFFING OPERATIONS MANAGER [facility] Final Diagnosis A. PAP SMEAR (THIN PREP) CE: SPECIMEN ADEQUACY: Satisfactory for evaluation; transformation zone present. INTERPRETATION: NEGATIVE FOR INTRAEPITHELIAL LESION OR MALIGNANCY. This specimen was analyzed by the automated ThinPrep Imaging System (Queryday.) and the selected mishra were reviewed by a fashion patternmaker. [facility] Results\Inter pretation A. PAP SMEAR (THIN PREP) CE: Human Papilloma Virus TestNEGATIVE for high-risk Human Papilloma Virus types 16, 18, 45 and the Other high risk probe set (Includes 31, 33, 35, 39, 51, 52, 56, 58, 59, 66, 68)Note: Testing performed by [employer] Onclarity HR-HPV analysis. Clinical correlation is advised. This HPV test was performed at [facility], [address] [place] [address]. This test has been FDA approved for both SurePath and ThinPrep cervical cytology specimens. The accuracy and precision of this test for all other specimen sources has been verified in the Cytopathology Laboratory of the [facility] and has not been cleared or approved by the U.S. Food and Drug Administration. Clinical correlation is advised. [facility] Conversion Type (Conversion Source) 11/16/2023 11/17/2023 10:35 AM EDT us Shannon Garcia PLAIN CLOTHES POLICE OFFICER CYTOLOGY ORDERABLES Edited Result - Final [facility] [address] [place] [address] from Last 3 Months or Most Recently Relevant to Health Maintenance [facility] Advance Directives For more information, please contact: [phone] (9AM - 5PM [facility], Tuesday-Tuesday) * Full Code (Presumed) (Latest Code Status on File) Date Activated Date Inactivated Comments 07/07/2017 8:30 AM 07/07/2017 3:58 PM Care Teams Personalization Specialist Relationship Specialty Start Date End Date Elicia Valentin PA [address] [place] [address] PCP - General Physician Nuclear Medicine Pet Ct Technologist 04/24/25 Additional Source Comments The information contained in this document represents components of the legal health record. It is not the complete legal health record.[facility]
--- OUTSIDE RECORDS SUMMARY | 2025-06-07 14:00 | XMS_ITS | Encounter Summary ---
Author Organization [facility] Address [address] [facility] [address] [place] [address] Phone Care Team Providers Care Cash Register Mechanic Name Role Phone Edmund Cope MD Unavailable [phone] Edmund Cope MD Primary Care Provider [phone] Shannon Garcia NP Primary Care Provid er Regulo Lundberg MD Unavailable [phone] Carey Boyd Primary Care Provider + [phone] Natasha Cerrato RN Unavailable Shanda Wilkinson MD Unavailable [phone] Regulo Lundberg MD Unavailable [phone] Shanda Wilkinson MD Unavailable [phone] Shanda Wilkinson MD Unavailable [phone] Elicia Valentin Primary Care Provider Encounter Details Date Type Department Care Team (Late st Contact Info) Description 01/15/2020 Ancillary Orders [facility],Outside Imaging [address] [place], [place] [id number] System, Provider Not In, [facility] [address] [address] Social History Tobacco Use Types Packs/Day Years [...] filedocumented in this encounter Care Teams Cash Register Mechanic Relationship Specialty Start Date End Date Edmund Cope MD [address] [place] [address] [email or web address] PCP - General Internal Medicine 01/08/20 02/14/20 Shannon Garcia NP [address] [place] [address] [email or web address] PCP - General Family Medicine 02/15/20 08/12/20 Carey Boyd PA [address] [place] [address] PCP - General Lithograph Press Operator 08/13/20 04/23/25 Elicia Valentin PA [address] [place] [address] PCP - General Physician Veterans' Counselor 04/24/25 Edmund Cope MD [address] [place] [address] [email or web address] Insurance Assigned Provider 09/19/19 04/19/20 Regulo Lundberg MD [address] [place] [address] [email or web address] Insurance Assigned Provider 04/19/20 09/20/20 Natasha Cerrato, FRITZ [address] [place] [address] [email or web address] Service Technician 08/14/20 08/31/20 Shanda Wilkinson MD [address] [place] [address] [email or web address] Insurance Assigned Provider 09/20/20 11/16/20 Regulo Lundberg MD [address] [place] [address] [email or web address] Insurance Assigned Provider 11/16/20 04/18/22 Shanda Wilkinson MD [address] [place] [address] [email or web address] Insurance Assigned Provider 04/18/22 01/18/23 Shanda Wilkinson MD [address] [place] [address] [email or web address] Insurance Assigned Provider 04/18/22 02/19/23 documented as of this encounter Additional Source Comments The information contained in this document represents components of the legal health record. It is not the complete legal health record.[facility]
--- OUTSIDE RECORDS SUMMARY | 2025-06-07 14:00 | XMS_ITS | Encounter Summary ---
Author Organization [facility] Address [address] [facility] [address] [place] [address] Phone Care Team Providers Care Green Coffee Blender Name Role Phone Carey Boyd Primary Care Provider [phone] Regulo Lundberg MD Unavailable [phone] Shanda Wilkinson MD Unavailable [phone] Shanda Wilkinson MD Unavailable [phone] Elicia Valentin Primary Care Provider [phone] Encounter Details Date Type Department Care Team (Late st Contact Info) Description 01/19/2022 Procedure Pass [facility], X-Ray - [facility] [address] [place], [place] [id number] Social History Tobacco Use Types Packs/Day Years [...] on filedocumented in this encounter Care Teams Green Coffee Blender Relationship Specialty Start Date End Date Carey Boyd PA [address] [place] [address] PCP - General Market Risk Specialist 08/13/20 04/23/25 Elicia Valentin PA [address] [place] [address] PCP - General Physician Video Control Operator 04/24/25 Regulo Lundberg MD [address] [place] [address] Insurance Assigned Provider 11/16/20 04/18/22 Shanda Wilkinson MD [address] [place] [address] Insurance Assigned Provider 04/18/22 01/18/23 Shanda Wilkinson MD [address] [place] [address] Insurance Assigned Provider 04/18/22 02/19/23 documented as of this encounter Additional Source Comments The information contained in this document represents components of the legal health record. It is not the complete legal health record.[facility]
--- OUTSIDE RECORDS SUMMARY | 2025-06-07 14:00 | XMS_ITS | Encounter Summary ---
Author Organization [facility] Address [address] [facility] [address] [place] [address] Phone Care Team Providers Care Pile Driving Technician Name Role Phone Edmund Cope MD Primary Care Provider +- Edmund Cope MD Unavailable [phone] Edmund Cope MD Primary Care Provider +- Shannon Garcia NP Primary Care Provid er Regulo Lundberg MD Unavailable [phone] Carey Boyd Primary Care Provider [phone] Natasha Cerrato RN Unavailable Shanda Wilkinson MD Unavailable + [phone] Regulo Lundberg MD Unavailable + Shanda Wilkinson MD Unavailable [phone] Shanda Wilkinson MD Unavailable [phone] Elicia Valentin Primary Care Provider [phone] Reason for Referral * MRI/CAT Scan - Closed Specialty Diagnoses / Procedures Referred By Contac t Referred To Contact Radiology Diagnoses Multiple joint pain Arthralgia, unspecified joint Procedures MRI Hand (Right) Clay Cavazos MD Phone: tel: fax: Referral ID Status Reason Start Date Expiration Date Visits Re quested Visits Authorized [id number] Closed 01/21/2020 07/19/2020 1 1 * MRI/CAT Scan - Closed Specialty Diagnoses / Procedures Referred By Contac t Referred To Contact Radiology Diagnoses Multiple joint pain Arthralgia, unspecified joint Procedures MRI Hand (Left) Clay Cavazos MD Phone: tel: fax: Referral ID Status Reason Start Date Expiration Date Visits Re quested Visits Authorized [id number] Closed 01/03/2020 03/06/2020 1 1 Encounter Details Date Type Department Care Team (Latest Contact Info) Description 01/04/2020 Transcribe Orders Virtual Department [address] [place] [address] Clay Cavazos MD [address] [place] [phone] Multiple joint pain (Primary Dx); Arthralgia, unspecified [...] arthritis or other explanation of pain. POS [id number] Narrative 01/26/2020 8:20 AM EDT TECHNIQUE: 1.5 [...] tenosynovitis,arthritis or other explanation of pain. POS [id number] Clay Cavazos MD IM MR EXTREMITY Final Result * MRI HAND [...] joint documented in this encounter Care Teams Pile Driving Technician Relationship Specialty Start Date End Date Edmund Cope MD [email or web address] PCP - General Internal Medicine 05/16/17 01/07/20 Edmund Cope MD [email or web address] PCP - General Internal Medicine 01/08/20 02/14/20 Shannon Garcia NP [address] [place] [address] [email or web address] PCP - General Family Medicine 02/15/20 08/12/20 Carey Boyd PA [address] [place] [address] PCP - General Hydro Station Operator 08/13/20 04/23/25 Elicia Valentin PA [address] [place] [address] PCP - General Physician Team Coordinator 04/24/25 Edmund Cope MD [address] [place] [address] [email or web address] Insurance Assigned Provider 09/19/19 04/19/20 Regulo Lundberg MD [address] [place] [address] Insurance Assigned Provider 04/19/20 09/20/20 Natasha Cerrato RN [address] [place] [address] PHC Speech Language Pathologist 08/14/20 08/31/20 Shanda Wilkinson MD [address] [place] [address] Insurance Assigned Provider 09/20/20 11/16/20 Regulo Lundberg MD [address] [place] [address] [email or web address] Insurance Assigned Provider 11/16/20 04/18/22 Shanda Wilkinson MD [address] [place] [address] [email or web address] Insurance Assigned Provider 04/18/22 01/18/23 Shanda Wilkinson MD [address] [place] [address] [email or web address] Insurance Assigned Provider 04/18/22 02/19/23 documented as of this encounter Additional Source Comments The information contained in this document represents components of the legal health record. It is not the complete legal health record.[facility]
--- OUTSIDE RECORDS SUMMARY | 2025-06-07 14:00 | XMS_ITS | Encounter Summary ---
Author Organization [facility] Address [address] [facility] [address] [place] [address] Phone Care Team Providers Care Guidance Secretary Name Role Phone Edmund Cope MD Primary Care Provider [phone] Edmund Cope MD Unavailable [phone] Edmund Cope MD Primary Care Provider + Shannon Garcia NP Primary Care Provid er Regulo Lundberg MD Unavailable [phone] Carey Boyd Primary Care Provider + [phone] Natasha Cerrato RN Unavailable Shanda Wilkinson MD Unavailable [phone] Regulo Lundberg MD Unavailable [phone] Shanda Wilkinson MD Unavailable [phone] Shanda Wilkinson MD Unavailable [phone] Elicia Valentin Primary Care Provider [phone] Encounter Details Date Type Department Care Team (Late st Contact Info) Description 01/04/2020 Procedure Pass [facility], [address] [id number] Social History Tobacco Use Types Packs/Day Years [...] 8:12 PM EDT Sexual Orientation Lesbian or Mayr 01/21/2023 5: 33 PM EDT documented as of this encounter Plan of Treatment Not on file documented as of this encounter Visit Diagnoses Not on filedocumented in this encounter Care Teams Guidance Secretary Relationship Specialty Start Date End Date Edmund Cope MD [email or web address] PCP - General Internal Medicine 05/16/17 01/07/20 Edmund Cope MD [email or web address] PCP - General Internal Medicine 01/08/20 02/14/20 Shannon Garcia NP [address] [place] [address] [email or web address] PCP - General Family Medicine 02/15/20 08/12/20 Carey Boyd PA [address] [place] [address] PCP - General Folder And Notcher 08/13/20 04/23/25 Elicia Valentin PA [address] [place] [address] PCP - General Physician Veterans' Coordinator 04/24/25 Edmund Cope MD [address] [place] [address] [email or web address] Insurance Assigned Provider 09/19/19 04/19/20 Regulo Lundberg MD [address] [place] [address] [email or web address] Insurance Assigned Provider 04/19/20 09/20/20 Natasha Cerrato, RN [address] [place] [address] [email or web address] [facility] Insurance Agency Owner 08/14/20 08/31/20 Shanda Wilkinson MD [address] [place] [address] Insurance Assigned Provider 09/20/20 11/16/20 Regulo Lundberg MD [address] [place] [address] [email or web address] Insurance Assigned Provider 11/16/20 04/18/22 Shanda Wilkinson MD [address] [place] [address] Insurance Assigned Provider 04/18/22 01/18/23 Shanda Wilkinson MD [address] [place] [address] [email or web address] Insurance Assigned Provider 04/18/22 02/19/23 documented as of this encounter Additional Source Comments The information contained in this document represents components of the legal health record. It is not the complete legal health record.[facility]
--- OUTSIDE RECORDS SUMMARY | 2025-06-07 14:00 | XMS_ITS | Encounter Summary ---
Author Organization [facility] Address [address] [place] [address] Phone Care Team Providers Care Medical Billing Supervisor Name Role Phone Regulo Lundberg MD Unavailable Carey Boyd Primary Care Provider [phone] Shanda Wilkinson MD Unavailable Regulo Lundberg MD Unavailable [phone] Shanda Wilkinson MD Unavailable [phone] Shanda Wilkinson MD Unavailable Elicia Valentin Primary Care Provider [phone] Encounter Details Date Type Department Care Team (Late st Contact Info) Description 09/08/2020 Ancillary Orders [facility] [address] [facility], 3rd Floor, [address] [place] [address] Ruiz Sauer PA-C [address] [place] [address] [email or web address] Pain Social History Tobacco Use Types [...] pain documented in this encounter Care Teams Medical Billing Supervisor Relationship Specialty Start Date End Date Carey Boyd PA [address] [place] [address] PCP - General Production Support Engineer 08/13/20 04/23/25 Elicia Valentin PA [address] [place] [address] PCP - General Physician Claims Service Representative 04/24/25 Regulo Lundberg MD [address] [place] [address] [email or web address] Insurance Assigned Provider 04/19/20 09/20/20 Shanda Wilkinson MD [address] [place] [address] Insurance Assigned Provider 09/20/20 11/16/20 Regulo Lundberg MD [address] [place] [address] Insurance Assigned Provider 11/16/20 04/18/22 Shanda Wilkinson MD [address] [place] [address] Insurance Assigned Provider 04/18/22 01/18/23 Shanda Wilkinson MD [address] [place] [address] [email or web address] Insurance Assigned Provider 04/18/22 02/19/23 documented as of this encounter Additional Source Comments The information contained in this document represents components of the legal health record. It is not the complete legal health record.[facility]
--- OUTSIDE RECORDS SUMMARY | 2025-06-07 14:00 | XMS_ITS | Encounter Summary ---
Author Organization [facility] Address [address] [place] [address] Phone Care Team Providers Care Business Integration Analyst Name Role Phone Edmund Cope MD Primary Care Provider + Edmund Cope MD Unavailable [phone] Edmund Cope MD Unavailable [phone] Edmund Cope MD Primary Care Provider [phone] Shannon Garcia NP Primary Care Provid er Regulo Lundberg MD Unavailable [phone] Carey Boyd Primary Care Provider [phone] Natasha Cerrato RN Unavailable Shanda Wilkinson MD Unavailable [phone] Regulo Lundberg MD Unavailable [phone] Shanda Wilkinson MD Unavailable [phone] Shanda Wilkinson MD Unavailable [phone] Elicia Valentin Primary Care Provider [phone] Encounter Details Date Type Department Care Team (Late st Contact Info) Description 07/07/2017 Procedure Pass [place] Admitting Dept - Virtual Department [address] [place] [address] Social History Tobacco Use Types Packs/Day Years [...] on filedocumented in this encounter Care Teams Business Integration Analyst Relationship Specialty Start Date End Date Edmund Cope MD [email or web address] PCP - General Internal Medicine 05/16/17 01/07/20 Edmund Cope MD [email or web address] PCP - General Internal Medicine 01/08/20 02/14/20 Shannon Garcia NP [address] [place] [address] [email or web address] PCP - General Family Medicine 02/15/20 08/12/20 Carey Boyd PA [address] [place] [address] PCP - General Impact Retail Service Merchandiser 08/13/20 04/23/25 Elicia Valentin PA [address] [place] [address] PCP - General Physician Nurse Care Manager 04/24/25 Edmund Cope MD [address] [place] [address] [email or web address] Insurance Assigned Provider 10/14/18 03/24/19 Edmund Cope MD [address] [place] [address] [email or web address] Insurance Assigned Provider 09/19/19 04/19/20 Regulo Lundberg MD [address] [place] [address] [email or web address] Insurance Assigned Provider 04/19/20 09/20/20 Natasha Cerrato RN [address] [place] [address] [email or web address] Seafood Fisherman 08/14/20 08/31/20 Shanda Wilkinson MD [address] [place] [address] [email or web address] Insurance Assigned Provider 09/20/20 11/16/20 Regulo Lundberg MD [address] [place] [address] [email or web address] Insurance Assigned Provider 11/16/20 04/18/22 Shanda Wilkinson MD [address] [place] [address] [email or web address] Insurance Assigned Provider 04/18/22 01/18/23 Shanda Wilkinson MD [address] [place] [address] [place] [address] [email or web address] Insurance Assigned Provider 04/18/22 02/19/23 documented as of this encounter Additional Source Comments The information contained in this document represents components of the legal health record. It is not the complete legal health record.[facility]
--- OUTSIDE RECORDS SUMMARY | 2025-06-07 14:01 | XMS_ITS | Encounter Summary ---
Author Organization [facility] Address [address] [facility] [address] [place] [address] Phone Care Team Providers Care Perioperative Manager Name Role Phone Carey Boyd Primary Care Provider [phone] Regulo Lundberg MD Unavailable Shanda Wilkinson MD Unavailable [phone] Shanda Wilkinson MD Unavailable [phone] Elicia Valentin Primary Care Provider [phone] Reason for Referral * Physical Therapy (Routine) - Closed Specialty Diagnoses / Procedures Referred By Contac t Referred To Contact Physical Therapy Diagnoses Encounter for rehabilitation Shannon Garcia NP Phone: tel: fax: [email or web address] [address] [place] [address] Phone: tel: Referral ID Status Reason Start Date Expiration Date Visits Re quested Visits Authorized [id number] Closed 02/13/2021 02/13/2022 1 1 Encounter Details Date Type Department Care Team (Latest Contact Info) Description 02/13/2021 Transcribe [facility] [address] [place] [address] Shannon Garcia NP [address] [place] [address] [place] [id number] [email or web address] Encounter for rehabilitation (Primary Dx) Social History [...] Diagnoses Orde r Schedule Ambulatory referral to [facility] Physical Therapy Outpatient Referral Routine Encounter for rehabilitation Ordered: 02/13/2021 documented as of this encounter Visit Diagnoses Diagnosis Encounter for rehabilitation- Primary documented in this encounter Care Teams Perioperative Manager Relationship Specialty Start Date End Date Carey Boyd PA [address] [place] [address] PCP - General Clinical Operations Consultant 08/13/20 04/23/25 Elicia Valentin PA [address] [place] [address] PCP - General Physician Train Control Technician 04/24/25 Regulo Lundberg MD [address] [place] [address] [email or web address] Insurance Assigned Provider 11/16/20 04/18/22 Shanda Wilkinson MD [address] [place] [address] [email or web address] Insurance Assigned Provider 04/18/22 01/18/23 Shanda Wilkinson MD [address] [place] [address] [email or web address] Insurance Assigned Provider 04/18/22 02/19/23 documented as of this encounter Additional Source Comments The information contained in this document represents components of the legal health record. It is not the complete legal health record.[facility]
--- OUTSIDE RECORDS SUMMARY | 2025-06-07 14:01 | XMS_ITS | Encounter Summary ---
Author Organization [facility] Address [address] [place] [address] Phone Care Team Providers Care Rescue Worker Name Role Phone Carey Boyd Primary Care Provider [phone] Shanda Wilkinson MD Unavailable [phone] Elicia Valentin Primary Care Provider [phone] Encounter Details Date Type Department Care Team (Late st Contact Info) Description 01/24/2023 Procedure Pass [address] [place] [address] Social History Tobacco Use Types Packs/Day Years [...] on filedocumented in this encounter Care Teams Rescue Worker Relationship Specialty Start Date End Date Carey Boyd PA [address] [place] [address] PCP - General Sliding Joint Maker 08/13/20 04/23/25 Elicia Valentin PA [address] [place] [address] PCP - General Physician Colleter 04/24/25 Shanda Wilkinson MD [address] [place] [address] [email or web address] Insurance Assigned Provider 04/18/22 02/19/23 documented as of this encounter Additional Source Comments The information contained in this document represents components of the legal health record. It is not the complete legal health record.[facility]
--- OUTSIDE RECORDS SUMMARY | 2025-06-07 14:01 | XMS_ITS | Encounter Summary ---
Author Organization [facility] Address [address] [facility] [address] [place] [address] Phone Care Team Providers Care Hospice Spiritual Care Coordinator Name Role Phone Carey Boyd Primary Care Provider [phone] Regulo Lundberg MD Unavailable Shanda Wilkinson MD Unavailable [phone] Shanda Wilkinson MD Unavailable [phone] Elicia Valentin Primary Care Provider [phone] Encounter Details Date Type Department Care Team (Late st Contact Info) Description 01/27/2021 Procedure Pass [facility] [address] [place] [address] Social History Tobacco Use Types [...] on filedocumented in this encounter Care Teams Hospice Spiritual Care Coordinator Relationship Specialty Start Date End Date Carey Boyd PA [address] [place] [address] PCP - General Locomotive Engineer Electric 08/13/20 04/23/25 Elicia Valentin PA [address] [place] [address] PCP - General Physician Business Management Consultant 04/24/25 Regulo Lundberg MD [address] [place] [address] Insurance Assigned Provider 11/16/20 04/18/22 Shanda Wilkinson MD [address] [place] [address] Insurance Assigned Provider 04/18/22 01/18/23 Shanda Wilkinson MD [address] [place] [address] Insurance Assigned Provider 04/18/22 02/19/23 documented as of this encounter Additional Source Comments The information contained in this document represents components of the legal health record. It is not the complete legal health record.[facility]
--- OUTSIDE RECORDS SUMMARY | 2025-06-07 14:01 | XMS_ITS | Encounter Summary ---
Author Organization [facility] Address [address] [facility] [address] [place] [address] Phone Care Team Providers Care Ultrasonographer Name Role Phone Edmund Cope MD Primary Care Provider + Edmund Cope MD Unavailable [phone] Edmund Cope MD Unavailable [phone] Edmund Cope MD Primary Care Provider + Shannon Garcia NP Primary Care Provid er Regulo Lundberg MD Unavailable + Carey Boyd Primary Care Provider + Natasha Cerrato RN Unavailable Shanda Wilkinson MD Unavailable + Regulo Lundberg MD Unavailable + Shanda Wilkinson MD Unavailable + Shanda Wilkinson MD Unavailable + Elicia Valentin Primary Care Provider [phone] Reason for Referral * Consultation (Elective) - Closed Specialty Diagnoses / Procedures Referred By Meche t Referred To Contact Neurology Diagnoses Myoclonus Chronic ankle pain, unspecified laterality System, Provider Not In, [facility] [id number] [place] [address] [address] [place] [address] Phone: tel: Referral ID Status Reason Start Date Expiration Date Visits Re quested Visits Authorized [id number] Closed 09/01/2018 09/02/2019 1 1 Encounter Details Date Type Department Care Team (Latest Contact Info) Description 09/01/2018 Transcribe Orders [facility] [address] [place] [phone] Self-Referred, Patient Myoclonus (Primary Dx); Chronic [...] Diagnoses Orde r Schedule Ambulatory referral to [facility] Outpatient Referral Routine Myoclonus Chronic ankle pain, unspecified laterality Ordered: 09/01/2018 documented as of this encounter Visit Diagnoses Diagnosis Myoclonus- Primary Chronic ankle pain, unspecified laterality documented in this encounter Care Teams Ultrasonographer Relationship Specialty Start Date End Date Edmnud Cope MD [email or web address] PCP - General Internal Medicine 05/16/17 01/07/20 Edmund Cope MD PCP - General Internal Medicine 01/08/20 02/14/20 Shannon Garcia, RICARDO [address] [place] [address] [email or web address] PCP - General Family Medicine 02/15/20 08/12/20 Carey Boyd PA [address] [place] [address] PCP - General Waredresser 08/13/20 04/23/25 Elicia Valentin PA [address] [place] [address] PCP - General Physician Dental Equipment Mechanic 04/24/25 Edmund Cope MD [address] [place] [address] [email or web address] Insurance Assigned Provider 10/14/18 03/24/19 Edmund Cope MD [address] [place] [address] Insurance Assigned Provider 09/19/19 04/19/20 Regulo Lundberg MD [address] [place] [address] Insurance Assigned Provider 04/19/20 09/20/20 Natasha Cerrato RN [address] [place] [address] PHCM Sales Assistant Displays 08/14/20 08/31/20 Shanda Wilkinson MD [address] [place] [address] [email or web address] Insurance Assigned Provider 09/20/20 11/16/20 Regulo Lundberg MD [address] [place] [address] [email or web address] Insurance Assigned Provider 11/16/20 04/18/22 Shanda Wilkinson MD [address] [place] [address] [email or web address] Insurance Assigned Provider 04/18/22 01/18/23 Shanda Wilkinson MD [address] [place] [address] [email or web address] Insurance Assigned Provider 04/18/22 02/19/23 documented as of this encounter Additional Source Comments The information contained in this document represents components of the legal health record. It is not the complete legal health record.[facility]
--- OUTSIDE RECORDS SUMMARY | 2025-06-07 14:01 | XMS_ITS | Encounter Summary ---
Author Organization [facility] Address [address] [facility] [address] [place] [address] Phone Care Team Providers Care Cafe Aide Name Role Phone Shannon Garcia NP Primary Care Provid er Regulo Lundberg MD Unavailable [phone] Carey Boyd Primary Care Provider [phone] Natasha Cerrato RN Unavailable Shanda Wilkinson MD Unavailable [phone] Regulo Lundberg MD Unavailable Shanda Wilkinson MD Unavailable Shanda Wilkinson MD Unavailable Elicia Valentin Primary Care Provider [phone] Encounter Details Date Type Department Care Team (Late st Contact Info) Description 05/15/2020 Procedure Pass [employer] [facility] [address] [place], [place] [id number] Social History Tobacco Use Types Packs/Day Years [...] on filedocumented in this encounter Care Teams Cafe Aide Relationship Specialty Start Date End Date Shannon Garcia NP [email or web address] PCP - General Family Medicine 02/15/20 08/12/20 Carey Boyd PA [address] [place] [address] PCP - General Gas Maker 08/13/20 04/23/25 Elicia Valentin PA [address] [place] [address] PCP - General Physician Director Account Management 04/24/25 Regulo Lundberg MD [address] [place] [address] Insurance Assigned Provider 04/19/20 09/20/20 Natasha Cerrato, FRITZ [address] [place] [address] PHCM [place] 08/14/20 08/31/20 Shanda Wilkinson MD [address] [place] [address] Insurance Assigned Provider 09/20/20 11/16/20 Regulo Lundberg MD [address] [place] [address] [email or web address] Insurance Assigned Provider 11/16/20 04/18/22 Shanda Wilkinson MD [address] [place] [address] [email or web address] Insurance Assigned Provider 04/18/22 01/18/23 Shanda Wilkinson MD [address] [place] [address] [email or web address] Insurance Assigned Provider 04/18/22 02/19/23 documented as of this encounter Additional Source Comments The information contained in this document represents components of the legal health record. It is not the complete legal health record.[facility]
== END 2025-06-07 13:57 | disposition home or self-care (01) ==
LOC: HO.XRAY 13:56
PROVIDERS: PCP Physician Assistant Medical; Visit Provider Student in an Organized Health Care Education/Training Program
DX: M24.272 Disorder of ligament, left ankle (principal); S93.492A Sprain of other ligament of left ankle, initial encounter
CPT/HCPCS: 73610

== ENCOUNTER → 2025-06-07 13:58 | Outpatient (BNV) | payer OTHER, SELFPAY | PROVIDERS: PCP Physician Assistant Medical; Visit Provider Radiology Diagnostic Radiology | DX: M24.272 Disorder of ligament, left ankle (principal) | CPT/HCPCS: 73610 ==